=== PATIENT | female | born 1950 | race Caucasian/White ===

== ENCOUNTER 2023-10-08 09:09 | Outpatient (OUT) | payer MEDICARE, SELFPAY ==
--- NOTE | 2023-10-08 09:36 | XR_ITS ---
The [address] [address] Patient Name: TONIA BOYER MRN: [id number] date: 1950 Sex: F Assigned Patient Location: [facility] Current Patient Location: [facility] Accession/Order Number: [id number] Exam Date: 10/08/2023 09:28 Report Date: 10/08/2023 10:00 At the request of: JOSE CRUZ HAAS Procedure: XR chest 2V EXAM: XR chest 2V HISTORY: Chronic Cough COMPARISON: None. TECHNIQUE: PA and lateral views of the chest. FINDINGS: The cardiomediastinal silhouette is normal. No focal consolidation is identified. There is no pneumothorax. No pleural effusion is noted. The osseous structures are intact. XR/XR chest 2V IMPRESSION: No acute cardiopulmonary process. Suggestion of COPD. Electronically authenticated by: ROLA DIAZ Date: 10/08/2023 10:00
--- NOTE | 2023-10-08 09:36 | XR_ITS ---
The [address] [address] Patient Name: TONIA BOYER MRN: [id number] date: 1950 Sex: F Assigned Patient Location: [facility] Current Patient Location: [facility] Accession/Order Number: [id number] Exam Date: 10/08/2023 09:28 Report Date: 10/08/2023 11:06 At the request of: JOSE CRUZ HAAS Procedure: XR sinus min 3V EXAMINATION: XR sinus min 3V HISTORY: Chronic Cough COMPARISON: No relevant comparison available. FINDINGS: MAXILLARY: No mucosal thickening or fluid level on the left. Partial opacification of the right. ETHMOID: No mucosal thickening or fluid level. FRONTAL: No mucosal thickening or fluid level. SPHENOID: No mucosal thickening or fluid level. OTHER: Negative. XR/XR sinus min 3V IMPRESSION: Right maxillary sinus disease Electronically authenticated by: PB MCBRIDE Date: 10/08/2023 11:06
== END 2023-10-08 09:10 | disposition home or self-care (01) ==
PROVIDERS: PCP Internal Medicine; Visit Provider Otolaryngology
DX: R05.3 Chronic cough (principal); J32.0 Chronic maxillary sinusitis
CPT/HCPCS: 70220; 71046

== ENCOUNTER 2023-12-01 14:10 | Observation (INO) | payer MEDICARE, SELFPAY ==
[2023-12-01] VITALS (10 sets, daily range): BP systolic 104–145; BP diastolic 57–76; PULSE 91–101; RESP 16–20; TEMP 37.2–39.2; O2SAT 94–100; BMI 28.4; BMI 34.4
--- OUTSIDE RECORDS SUMMARY | 2023-12-01 14:12 | XMS_ITS | CCD ---
Author Name Unknown Address [address] [facility] [place] [address] Organization [facility] Care Team Providers Care Water Systems Engineer Name Role Phone Vick KRAUS MD, Tyshawn Primary Care Provider [phone] Pb Sanabria Unavailable Vick KRAUS MD, Tyshawn Primary Care Provider JEYSON LEW Attending Unavailable SELF, SELF Referring Unavailable VICK KRAUS, TYSHAWN Primary Care Unavailable JEYSON LEW Referring Unavailable JEYSON LEW Attending Unavailable VICK KRAUS, TYSHAWN Primary Care Unavailable JEYSON LEW Referring Unavailable JEYSON LEW Attending Unavailable VICK KRAUS, TYSHAWN Primary Care Unavailable VICK KRAUS, TYSHAWN Primary Care Unavailable JEYSON LEW Attending Unavailable JEYSON LEW Referring Unavailable VICK KRAUS, TYSHAWN Primary Care Unavailable JEYSON LEW Referring Unavailable MARCUS CALLES Attending Unavailable SELF, SELF Referring Unavailable MAURICE, CHERYL Attending Unavailable VICK II, TYSHAWN Primary Care Unavailable HICKMAN II, TYSHAWN Primary Care Unavailable MAURICE, CHERYL Attending Unavailable MAURICE, CHERYL Referring Unavailable MAURICE, CHERYL Referring Unavailable HICKMAN II, TYSHAWN Primary Care Unavailable MAURICE, CHERYL Attending Unavailable MAURICE, CHERYL Attending Unavailable HICKMAN II, TYSHAWN Primary Care Unavailable MAURICE, CHERYL Referring Unavailable MAURICE, CHERYL Attending Unavailable HICKMAN II, TYSHAWN Primary Care Unavailable MAURICE, CHERYL Referring Unavailable BROOK ALEXANDRA Smith Consulting Unavailable VICK, DR VILLAGRAN Primary Care Unavailable RENE Smith, DR CHEN Admitting Unavailable RENE Smith, DR CHEN Attending Unavailable TAMMIE, DR ROLA Rios Admitting Unavailable VICK, DR VILLAGRAN Primary Care Unavailable TAMMIE, DR ROLA Rios Attending Unavailable TAMMIE, DR ROLA Rios Consulting Unavailable SOPHIA STEWART Consulting Unavailable RENE Smith, DR CHEN Admitting Unavailable VICK, DR VILLAGRAN Primary Care Unavailable EUNICE .MIRA Consulting UnavailMilton Smith, DR CHEN Attending Unavailable CHEN ZAMORANO Consulting Unavailable VICK, DR VILLAGRAN Primary Care Unavailable VICK, DR VILLAGRAN Admitting Unavailable VICK, DR VILLAGRAN Attending Unavailable VICK, DR VILLAGRAN Consulting Unavailable RAE, DR PB Arroyo Consulting Unavailable VICK, DR VILLAGRAN Admitting Unavailable VICK, DR VILLAGRAN Attending Unavailable HICKMAN, DR VILLAGRAN Consulting Unavailable VICK, DR VILLAGRAN Primary Care Unavailable HICKMAN, DR VILLAGRAN Admitting Unavailable HICKMAN, DR VILLAGRAN Attending Unavailable HICKMAN, DR VILLAGRAN Consulting Unavailable VICK, DR VILLAGRAN Primary Care Unavailable ZIEBER, DR NITIN Rios Consulting Unavailable HICKMAN, DR VILLAGRAN Primary Care Unavailable HAY ., DR CHEN Admitting Unavailable HAY ., DR CHEN Attending Unavailable HAY ., DR CHEN Consulting Unavailable AHDOOT, LUKE Consulting Unavailable Vick, NAYANA Villagran Primary Care Provider [phone] MD Pb Sanabria Attending Provider Pb Sanabria Attending Unavailable Pb Sanabria Admitting Unavailable Tyshawn Hickman Primary Care Unavailable JOSE CRUZ HAAS Attending Unavailable Medications Current Medications Medication Drug Class(es) Dates Sig (Normalized) Sig (Original) acetaminophen 325 mg oral tablet (13 sources) Start: 11-14-2021 take 2 tablets by mouth every four hours as needed acetaminophen 325 MG tablet Take 2 tablets by mouth every 4 hours as needed for Mild Pain. 50 tablet 1 11/14/2021 Active Start: 11-14-2021 End: 11-14-2021 take 1 tablet by mouth every six hours acetaminophen (TYLENOL) tablet 1,000 mg acetaminophen 325 mg / HYDROcodone bitartrate 5 mg oral tablet (7 sources) Opioid Agonist Start: 11-14-2021 End: 11-21-2021 take 1 tablet by mouth once daily as needed hydroCODone-acetaminophen 5-325 MG tablet Indications: Acute postoperative pain of left knee Take 1-2 tablets by mouth every 6 hours as needed for Severe Pain for up to 7 days. Do not take over 4000mg acetaminophen daily. 10 tablet 0 11/14/2021 Active Albuterol (13 sources) beta2-Adrene rgic Agonist Start: 10-04-2021 Albuterol Active 90 MCG INHALATION As Directed October 03, 2021 11:00pm albuterol 108 (9 0 Base) MCG/ACT Aero Soln inhaler as needed. 0 Active Albuterol / Ipratropium (14 sources) Anticholinergic, beta2-Adrenergic Agonist ipratropium-albu terol 0.5-2.5 (3) MG/3ML nebulizer solution ipratropium 0.5 mg-albuterol 3 mg (2.5 mg base)/3 mL nebulization soln 0 Active Ipratropium-Albu terol Active alendronic acid 70 mg oral tablet (15 sources) Bisphosphonate Start: 10-04-2021 take 70 mg by mouth every week Alendronate Active 70 MG PO every week October 03, 2021 11:00pm alendronate 70 M G tablet every 7 days. 0 Active Alendronate Sodi um Active {1 (ascorbic acid 7540 MG / polyethylene glycol 3350 57713 MG / potassium chloride 1200 MG / sodium ascorbate 88651 MG / sodium chloride 3200 MG Powder for Oral Solution) / 1 (polyethylene glycol 3350 925949 MG / potassium chloride 1000 MG / sodium chloride 2000 MG / sodium sulfate 9000 MG Powder for Oral Solution) } Pack [Plenvu] (2 sources) Osmotic Laxative, Vitamin C Start: 09-18-2021 Start: 09-18-2021 aspirin 81 mg delayed release oral tablet (20 sources) Platelet Aggregation Inhibitor, Nonsteroidal Anti-inflammatory Drug Start: 11-15-2021 End: 11-14-[address] 81 mg Start: 11-14-2021 aspirin EC [address] Take 1 table twice a day for 30days. This medication is for blood clot prevention. 60 tablet 0 11/14/2021 Active Start: 10-04-2021 take 81 mg by mouth once daily Aspirin Active 81 MG PO Daily October 03, 2021 11:00pm aspirin 81 MG Ch ew Tab chewable tablet Chew 81 mg daily. 0 Active atorvastatin 40 mg oral tablet (15 sources) HMG-CoA Reductase Inhibitor Start: 10-04-2021 take 40 mg by mouth once daily Atorvastatin Active 40 MG PO Daily October 03, 2021 11:00pm Atorvastatin Pablo cium Active calcium citrate 1040 mg oral tablet (12 sources) Calcium Citrate 1040 MG tablet Take 600 mg by mouth daily. 0 Active cephalexin 500 mg oral capsule (1 source) Cephalosporin Antibacterial Start: End: take 1 capsule by mouth every six hours cephALEXin 500 MG capsule Take 1 capsule by mouth every 6 hours for 3 doses. Start 6 hours after last dose of iv antibiotics. 3 capsule 0 11/14/2021 11/15/2021 Active cholecalciferol 0.125 mg oral tablet (12 sources) Vitamin D Cholecalciferol 125 MCG (5000 UT) per tablet At bedtime. 0 Active Colchicine (14 sources) Colchicine 0.6 M G capsule as needed. 0 Active Colchicine Activ e 1 ml dexamethasone phosphate 4 mg/ml injection (6 sources) Corticosteroid Start: 08-01-2022 dexAMETHasone 4 MG/ML Solution injection 1 mL by Other route As directed for 18 doses. (1 cc 3 x a week at physical therapy via iontophoresis) for up to 18 doses. 30 mL 0 08/01/2022 Active Start: 11-14-2021 End: 11-14-2021 dexAMETHasone (DECADRON) inj ection 10 mg diphenhydrAMINE (5 sources) Histamine-1 Receptor Antagonist diphenhydrAMINE HCl (BENADRYL ALLERGY PO) Take by mouth. 0 Active docusate sodium 100 mg oral capsule (12 sources) Start: End: take 1 capsule by mouth twice daily docusate 100 MG capsule Take 1 capsule by mouth 2 times daily. 60 capsule 0 11/14/2021 Active ferrous sulfate 325 mg oral tablet (13 sources) Start: take 1 tablet by mouth three times daily Ferrous Sulfate (Iron) 325 mg (65 mg iron) Tablet Active 325 MG PO Three times daily October 03, 2021 11:00pm Ferrous Sulfate (IRON PO) 3 times daily. 0 Active furosemide 20 mg oral tablet (15 sources) Loop Diuretic Start: 10-04-2021 take 20 mg by mouth once daily Furosemide Active 20 MG PO Daily October 03, 2021 11:00pm Furosemide Activ e Hydrocortisone (14 sources) Corticosteroid hydrocortisone 2 .5 % Lotion Apply topically as needed. 0 Active Hydrocortisone A ctive Iron (2 sources) Iron Active metFORMIN hydrochloride 500 mg oral tablet (15 sources) Biguanide Start: 10-04-2021 take 500 mg by mouth twice daily Metformin Active 500 MG PO Twice daily October 03, 2021 11:00pm take 1 tablet by codi th every twenty-four hours metFORMIN 500 MG tablet 3 times daily. 0 Active 24 hr metoprolol succinate 25 mg extended release oral tablet (15 sources) beta-Adrenergic Donnie Start: 10-04-2021 take 25 mg by mouth once daily Metoprolol Succinate Active 25 MG PO Daily October 03, 2021 11:00pm Metoprolol Succi paras ER Active multivitamin tablet (12 sources) take 1 tablet by mouth once daily multivitamin tablet Take 1 tablet by mouth daily. 0 Active Nystatin (2 sources) Polyene Antifungal Nystatin Active nystatin 100 unt/mg / triamcinolone acetonide 0.001 mg/mg topical ointment (12 sources) Polyene Antifungal, Corticosteroid nystatin-triamcinolo ne 575312-3.1 UNIT/GM-% Ointment as needed. 0 Active omeprazole 20 mg delayed release oral capsule (11 sources) Proton Pump Inhibitor Start: 2020 take 1 capsule by mouth once daily omeprazole [address] capsule Take 1 capsule by mouth daily. 30 capsule 0 11/14/2021 Active ondansetron 4 mg oral tablet (12 sources) Serotonin-3 Receptor Antagonist Start: 2020 take 1 tablet by mouth every eight hours as needed ondansetron 4 MG tablet Take 1 tablet by mouth every 8 hours as needed for Nausea. 6 tablet 0 11/14/2021 Active Start: 11-14-2021 End: 11-14-2021 take 4 mg intravenously every four hours as needed ondansetron 4mg/2ml (ZOFRAN) injection 4 mg traMADol hydrochloride 50 mg oral tablet (8 sources) Opioid Agonist Start: 11-14-2021 End: 11-21-2021 take 1-2 tablets by mouth every six hours as needed for pain traMADol 50 MG tablet Indications: Acute postoperative pain of left knee 1-2 tabs po q 6 hr PRN pain 20 tablet 0 11/14/2021 Active vitamin b12 1 mg oral tablet (12 sources) Vitamin B12 take 2 tablets by mouth every month cyanocobalamin 1000 MCG tablet Take 500 mcg by mouth. Once or twice/month 0 Active Completed/Discontinued Medications Medication Drug Class(es) Dates Sig (Normalized) Sig (Original) bisacodyl 10 mg rectal suppository (1 source) Stimulant Laxative Start: 11-14-20 End: 11-14-20 bisacodyl (DULCOLAX) suppository 10 mg bupivacaine hydrochloride 2.5 mg/ml injectable solution (2 sources) Amide Local Anesthetic Start: 08-08-20 End: 08-08-20 bupivacaine (MARCAINE) injection 2 mL ceFAZolin 2000 mg injection (1 source) Cephalosporin Antibacterial Start: 11-14-20 End: 11-14-20 take 2 g intravenously every eight hours ceFAZolin (ANCEF) 2 g in dextrose 100 mL premix IVPB chlorhexidine gluconate 40 mg/ml medicated liquid soap (2 sources) Start: 09-01-20 End: 11-14-20 chlorhexidine 4 % Liquid Indications: Arthralgia, unspecified joint Entire body(Exclude face) daily x 5 days 118 mL 0 09/01/2021 11/14/2021 Discontinued (Stop Taking at Discharge) docusate sodium 50 mg / sennosides, fci 8.6 mg oral tablet (1 source) Start: 11-14-20 End: 11-14-20 senna-docusate (SENOKOT-S) 8.6-50 MG per tablet 2 tablet fluticasone propionate 0.05 mg/actuat metered dose nasal spray (8 sources) Corticosteroid End: 08-01-20 fluticasone 50 MCG/ACT Suspension nasal spray fluticasone propionate 50 mcg/actuation nasal spray,suspension 0 08/01/2022 Discontinued (Medication Reconciliation (suppress cancel msg)) 1 ml HYDROmorphone hydrochloride 1 mg/ml cartridge (1 source) Opioid Agonist Start: 11-14-20 End: 11-14-20 take 0.5 mg intravenously every four hours as needed HYDROmorphone (DILAUDID) injection 0.5 mg 10 ml lidocaine hydrochloride 10 mg/ml injection (2 sources) Antiarrhythmic, Amide Local Anesthetic Start: 08-08-20 End: 08-08-20 lidocaine (XYLOCAINE) 10 mg/mL injection 2 mL 1 ml methylPREDNISolone acetate 40 mg/ml injection (2 sources) Corticosteroid Start: 08-08-20 End: 08-08-20 methylPREDNISolone acetate (DEPO-MEDROL) injection 40 mg mupirocin 0.02 mg/mg topical ointment (2 sources) RNA Synthetase Inhibitor Antibacterial Start: 09-01-20 End: 11-14-20 apply 15 g nasal route twice daily mupirocin 2 % ointment Indications: Arthralgia, unspecified joint Each nostril BID x 5 days 15 g 0 09/01/2021 11/14/2021 Discontinued (Stop Taking at Discharge) ropivacaine (NAROPIN) 1 % 400 mg, EPINEPHrine PF (ADRENALIN) 1 MG/ML 1 mg, ketorolac (TORADOL) 30 MG/ML 30 mg, cloNIDine 100 MCG/ML 171 mcg, sodium chloride 0.9% 45 mL 88.71 mL (total volume) (1 source) Start: 11-14-20 End: 11-14-20 ropivacaine (NAROPIN) 1 % 400 mg, EPINEPHrine PF (ADRENALIN) 1 MG/ML 1 mg, ketorolac (TORADOL) 30 MG/ML 30 mg, cloNIDine 100 MCG/ML 171 mcg, sodium chloride 0.9% 45 mL 88.71 mL (total volume) 1000 ml sodium chloride 9 mg/ml injection (3 sources) Start: 11-14-20 End: 11-14-20 sodium chloride 0.9 % irrigation Start: 11-14-2021 End: 11-14-2021 sodium chloride 0.9% IV solu tion sodium phosphate, dibasic 35.5 mg/ml / sodium phosphate, monobasic 96.4 mg/ml enema (1 source) Start: 11-14-2021 End: 11-14-2021 sodium phosphate w/sodium biphosphate (FLEETS) enema 1 enema tranexamic acid 650 mg oral tablet (1 source) Antifibrinolytic Agent Start: 11-14-2021 End: 11-14-2021 tranexamic acid (LYSTEDA) tablet 1,950 mg vancomycin 1000 mg injection (1 source) Glycopeptide Antibacterial Start: 11-14-2021 End: 11-14-2021 vancomycin (VANCOCIN) injection zolpidem tartrate 5 mg oral tablet (1 source) gamma-Aminobutyric Acid-ergic Agonist Start: 11-14-2021 End: 11-14-2021 zolpidem (AMBIEN) tablet 5 mg Problems Active Problems Problem Classification Problem Date Documented Da te Episodic/Chronic Chronic obstructive pulmonary disease and bronchiectasis (1 source) Chronic obstructive pulmonary disease, unspecified; Translations: [COPD UNSPECIFIED] Onset: 10-04-2022 Chronic Complication of device; implant or graft (3 sources) Pain due to hip joint prosthesis; Translations: [Pain due to internal orthopedic prosthetic devices, implants and grafts, sequela] Onset: 12-12-2022 Episodic Congestive heart failure; nonhypertensive (2 sources) Chronic diastolic heart failure; Translations: [Chronic diastolic (congestive) heart failure] Chronic Deficiency and other anemia (4 sources) Iron deficiency anemia; Translations: [Iron deficiency anemia, unspecified] Episodic Diabetes mellitus without complication (1 source) Type 2 diabetes mellitus without complications; Translations: [TYPE 2 DM WITHOUT COMPLICATIONS] Onset: 10-04-2022 Chronic Diverticulosis and diverticulitis (1 source) Diverticulosis of intestine, part unspecified, without perforation or abscess without bleeding; Translations: [DVRTCLOS PRT UNS NO PERF/ABSC NO BL] Onset: 10-04-2022 Chronic Essential hypertension (1 source) Essential (primary) hypertension; Translations: [ESSENTIAL PRIMARY HYPERTENSION] Onset: 10-04-2022 Chronic Menopausal disorders (1 source) Other primary ovarian failure; Translations: [OTHER PRIMARY OVARIAN FAILURE] Onset: 03-06-2023 Chronic Miscellaneous mental health disorders (2 sources) Chronic insomnia; Translations: [Psychophysiologic insomnia] Chronic Osteoarthritis (3 sources) Osteoarthritis of left hip joint; Translations: [Unilateral primary osteoarthritis, left hip] Onset: 10-04-2022 Chronic Osteoporosis (1 source) Age-related osteoporosis without current pathological fracture; Translations: [AGE-REL OSTEOPOR W/O CURR PATH FX] Onset: 03-06-2023 Chronic Other connective tissue disease (4 sources) History of total replacement of left hip joint; Translations: [Presence of left artificial hip joint] Chronic Other connective tissue disease (2 sources) Presence of left artificial hip joint; Translations: [Presence of left artificial hip joint] Onset: 08-01-2022 Chronic Other connective tissue disease (1 source) Trigger finger of left hand; Translations: [Trigger finger, unspecified finger] Episodic Other hereditary and degenerative nervous system conditions (2 sources) Restless legs; Translations: [Restless legs syndrome] Chronic Other hereditary and degenerative nervous system conditions (2 sources) Restless legs syndrome Onset: 10-03-2021 Resolved: 10-03-2021 Chronic Other injuries and conditions due to external causes (2 sources) History of falling; Translations: [History of falling] Onset: 12-12-2022 Episodic Other nervous system disorders (1 source) Other acute postprocedural pain; Translations: [Pain in joint, lower leg] Episodic Other nutritional; endocrine; and metabolic disorders (2 sources) Body mass index 30+ - obesity; Translations: [Body mass index (BMI) 34.0-34.9, adult] Chronic Other screening for suspected conditions (not mental disorders or infectious disease) (9 sources) Coag./bleeding tests abnormal; Translations: [Abnormal coagulation profile] Onset: 06-07-2022 Episodic Residual codes; unclassified (2 sources) Obstructive sleep apnea syndrome; Translations: [Obstructive sleep apnea (adult) (pediatric)] Chronic Residual codes; unclassified (2 sources) Obstructive sleep apnea (adult) (pediatric) Onset: 10-03-2021 Resolved: 10-03-2021 Chronic Residual codes; unclassified (1 source) Sleep apnea, unspecified; Translations: [SLEEP APNEA UNSPECIFIED] Onset: 10-04-2022 Chronic Residual codes; unclassified (1 source) Obstructive sleep apnea (adult)(pediatric); Translations: [Obstructive sleep apnea (adult) (pediatric)] Onset: 10-08-2023 Chronic Past or Other Problems Problem Classification Problem Date Documented Da te Episodic/Chronic Abdominal pain (3 sources) Unspecified abdominal pain; Translations: [UNSPECIFIED ABDOMINAL PAIN] Onset: 05-10-2022 Episodic Deficiency and other anemia (1 source) Iron deficiency anemia, unspecified Onset: 10-03-2021 Resolved: 10-03-2021 Episodic E Codes: Cut/pierceb (1 source) Contact with other sharp object(s), not elsewhere classified, initial encounter; Translations: [[facility] OTH SHRP OB NOT ELSW CLASS INI] Onset: 09-19-2022 Episodic E Codes: Fall (1 source) Unspecified fall, initial encounter; Translations: [UNSPECIFIED FALL INITIAL ENCOUNTER] Onset: 05-13-2022 Episodic E Codes: Natural/environment (1 source) Other and unspecified overexertion or strenuous movements or postures, initial encounter; Translations: [OTH AND UNS OVREXRT/STRN MVMT/POS INT] Onset: 10-04-2022 Episodic Immunizations and screening for infectious disease (1 source) Encounter for immunization; Translations: [ENCOUNTER FOR IMMUNIZATION] Onset: 09-19-2022 Episodic Open wounds of extremities (4 sources) Laceration without foreign body of left thumb without damage to nail, initial encounter; Translations: [LAC NO FB LT THUMB NO DMG NAIL INIT] Onset: 09-17-2022 Episodic Other aftercare (1 source) 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 inspector (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; Translations: [SEWER INSPECTOR CURRENT USE OF ASPIRIN] Onset: 10-04-2022 Episodic Other aftercare (1 source) Other buttermaker (current) drug therapy; Translations: [OTH SEWER INSPECTOR CURRENT DRUG THERAPY] Onset: 10-04-2022 Episodic Other aftercare (1 source) group home (current) use of oral hypoglycemic drugs; Translations: [SEWER INSPECTOR USE ORAL HYPOGLYCEMIC DX] Onset: 10-04-2022 Episodic Other connective tissue disease (2 sources) Trigger finger, unspecified finger; Translations: [Trigger finger, unspecified finger] Onset: 08-08-2022 Episodic Other connective tissue disease (3 sources) Pain in left thigh; Translations: [PAIN IN LEFT THIGH] Onset: 05-26-2022 Episodic Other non-traumatic joint disorders (6 sources) Pain in left hip; Translations: [Pain in left hip] Onset: 05-28-2022 Episodic Residual codes; unclassified (1 source) Edema, unspecified; Translations: [EDEMA UNSPECIFIED] Onset: 05-28-2022 Episodic Screening and history of mental health and substance abuse codes (1 source) Personal history of nicotine dependence; Translations: [PERSONAL HISTORY OF NICOTINE DEPEND] Onset: 10-04-2022 Episodic Sprains and strains (1 source) Strain of muscle, fascia and tendon of left hip, initial encounter; Translations: [STRAIN MUSC FASC TENDON LT HIP INIT] Onset: 10-04-2022 Episodic Superficial injury; contusion (1 source) Contusion of abdominal wall, initial encounter; Translations: [CONTUSION ABDOMINAL WALL INITIAL] Onset: 05-13-2022 Episodic Results Test Name Value Interpretation Reference Range Facility Physician Orderon 11-14-2023 Physician Order [id number] [facility] Physician Order [id number] 0TIFF Normal [facility] MG MAMM SCREEN 3D NGOC CADon 02-28-2023 MG MAMM SCREEN 3D NGOC CAD Patient: SIRIA PETTY Exam Date: 02/28/2023 : 1950 Gender:F Ordering : DR TYSHAWN HICKMAN M.D. Admission #: [id number] Family : Order #: [id number] CLICK HERE TO VIEW EXAM RADIOLOGY REPORT PROCEDURE: MAMMOGRAM SCREENING 3D BILATERAL CAD COMPARISON: MG MAMM SCREEN 3D NGOC CAD, 10/31/2021. MG MAMM DX 3D RT CAD, 06/07/2022. INDICATIONS: Screening mammography Calculator Name NCI Breast Cancer Risk Assessment Tool 5 Year Breast Cancer Risk Not Reported. Lifetime Breast Cancer Risk Not Reported. Personal Breast Cancer No Personal Ovarian Cancer No Treatments None Family Cancers None LOCATION: [facility] BREAST COMPOSITION: Almost entirely fatty. FINDINGS: DIAGNOSTIC CATEGORY 1--NEGATIVE. NO CHANGE FROM COMPARISON ASSESSMENT. Scattered benign-appearing nodules are present. Scattered benign-appearing calcifications are present. Scattered benign-appearing lymph nodes are present. RIGHT BREAST: No significant suspicious finding. LEFT BREAST: No significant suspicious finding. RECOMMENDATIONS: ROUTINE MAMMOGRAM AND CLINICAL EVALUATION IN 12 MONTHS. PLEASE NOTE: A NORMAL MAMMOGRAM DOES NOT EXCLUDE THE POSSIBILITY OF BREAST CANCER. A CLINICALLY SUSPICIOUS PALPABLE LUMP SHOULD BE BIOPSIED. Dictated by: Pb Mcbride MD on 02/28/2023 at 13:57 Approved by: Pb Mcbride MD on 02/28/2023 at 14:23 Normal [facility] XR DEXA BONE DENSITYon 02-28 XR DEXA BONE DENSITY EXAMINATION: XR DEX A BONE DENSITY, 02/28/2023 12:37 PM EDT HISTORY: Primary ovarian failure COMPARISON: 2019, 2015, 2013 TECHNIQUE: Dual-energy X-ray absorptiometry (DEXA) bone density study performed for the axial skeleton. FINDINGS: Bone mineral density AP spine L2-L4 measures 1.43 g/sq cm. T score 2.0. WHO classification: Normal. Lowest bone mineral density is in the right femoral trochanter measuring 0.56 g/sq cm. T score -2.5. WHO classification: Osteoporosis IMPRESSION: Osteoporosis. High fracture risk Electronically authenticated by: PB MCBRIDE Date: 2023-02-28 15:36 Normal [facility] MRI HIP LEFT WITHOUT CONTRAS Ton 12-13-2022 MRI HIP LEFT WITHOUT CONTRAST EXAM: MRI HIP LEFT WITHOUT CONTRAST REASON FOR EXAM: Left hip pain, prior arthroplasty. TECHNIQUE: Multiplanar, multisequence imaging of the left hip was performed without contrast COMPARISON: Plain radiograph 11/27/2022. FINDINGS: On small [id number] imaging the left hip, susceptibility artifact consistent with known left hip arthroplasty. There are also surgical anchor is within the greater trochanter consistent with tendon fixation. The visualized bone marrow signal of the left hip is normal. Trace amount of fluid at the greater trochanter suggests mild bursitis. No large fluid collection identified. There is tendinosis and low-grade partial tearing of the common hamstring origin. The remaining left hip regional musculature is unremarkable. On large [id number] imaging, the bone marrow signal is without fracture or osteonecrosis. The sacroiliac joints are congruent with mild to moderate osteoarthritis. The pubic symphysis is congruent. The right femur is well seated within the acetabulum without fracture or AVN. The right hip regional musculature is without muscle strain or tendon tear. Limited evaluation the pelvic viscera is without acute abnormality. Colonic diverticulosis is noted. The uterus is present. IMPRESSION: 1. Postsurgical changes involving the left hip. 2. Mild trochanteric bursitis of the left hip. 3. Tendinosis and low-grade partial tearing of the left common hamstring origin. Normal [facility] US Venous, Unilat, Lower Ext Righton 10-17-2022 US Venous, Unilat, Lower Ext Right CLINICAL INDICATION:Right greater than left leg edema for 2 weeks. History of left hip replacement. Baby aspirin 1 per day. COMPARISON: None TECHNIQUE: The right lower extremity veins were evaluated with color Doppler, grayscale imaging, and spectral analysis was using compression and augmentation when possible. FINDINGS: Evaluation of the right lower extremity veins from the thigh to the calf shows normal phasic flow, normal augmentation of the Doppler signal, and normal compression of the deep veins. There is no sonographic evidence for deep venous thrombosis from the right groin to the popliteal region. There is no sonographic evidence for deep vein thrombosis in the right calf veins. IMPRESSION: No DVT of the right lower extremity veins. Report reported and signed by Berhane Fernandez on 10/17/2022 1156 Normal [facility] XR HIP LT 2 3V W PELVISon XR HIP LT 2 3V W PELVIS EXAM: XR HIP LT 2 3V W PELVIS HISTORY: Pain COMPARISON: 08/01/2022, 05/26/2022 TECHNIQUE AND FINDINGS: Frontal view pelvis and 2 views of the left hip. Generalized osteopenia, limits assessment for fracture. No acute displaced fracture or dislocation seen. Left hip arthroplasty appears intact and unchanged from previous. There is no evidence of hardware failure or significant perihardware lucency. Unremarkable soft tissues without radiopaque foreign body seen. Moderate degenerative changes of the visualized lower lumbar spine. Minimal right hip arthropathy. Surgical clips in the right upper abdomen likely from cholecystectomy. Bowel gas pattern appears nonobstructive. IMPRESSION: Generalized osteopenia. No evidence of acute displaced fracture. Stable left hip arthroplasty. Electronically authenticated by: SOPHIA STEWART Date: 2022-10-03 00:50 Normal [facility] UPPER EXTREMITY INJECTION: L long A1on 08-08-2022 Aye Schafer LPN 08/08/2022 11:43 AM UPPER EXTREMITY INJECTION: L long A1 Date/Time: 08/08/2022 9:15 AM Supporting Documentation Indications: pain Procedure Details: Procedure: tendon sheath / ligament injection Location: long finger - L long A1 Needle size: 25 G Approach: superolateral Medications administered: 40 mg methylPREDNISolone acetate 40 MG/ML; 2 mL bupivacaine 0.25 %; 2 mL lidocaine 10 mg/mL Medication Verification: I have personally verified and performed the final check of the medication(s) used in this procedure prior to administration. The following items were included during the verification process for medication(s) administered: drug name, strength, volume, expiration, physical integrity and appearance of the medication(s). Patient tolerance: patient tolerated the procedure well with no immediate complications Comments Risk and Benefits were discussed with the patient and they wished to proceed. The procedure was performed aseptically and was tolerated by the patient. Consent: Consent was obtained prior to the procedure after discussion of the risks, benefits and alternatives, and expected outcomes were discussed with the patient. The possibilities of reaction to medication, bleeding, infection, the need for additional procedures, failure to diagnosis a condition, and creating a complication requiring operation were discussed with the patient. The patient concurred with the proposed plan, giving consent. Preparation: Patient was prepped in the usual sterile fashion. The patient was prepped with alcohol. [facility] Radiology Study observation (narrative) [facility] MG MAMM DX 3D RT CADon 06-07 MG MAMM DX 3D RT CAD Patient: SIRIA PETTY Exam Date: 06/07/2022 : 1950 Gender:F Ordering : DR TYSHAWN HICKMAN M.D. Admission #: [id number] Family : Order #: [id number] CLICK HERE TO VIEW EXAM RADIOLOGY REPORT PROCEDURE: MAMMOGRAM DIAGNOSTIC 3D RIGHT CAD COMPARISON: MG MAMM SCREEN 3D NGOC CAD, 10/31/2021. MG MAMM SCREEN NGOC W CAD, 10/28/2020. INDICATIONS: Abnormal findings on diagnostic imaging of breast Calculator Name NCI Breast Cancer Risk Assessment Tool 5 Year Breast Cancer Risk Not Reported. Lifetime Breast Cancer Risk Not Reported. Personal Breast Cancer No Personal Ovarian Cancer No Treatments None Family Cancers None LOCATION: [facility] BREAST COMPOSITION: Almost entirely fatty. FINDINGS: DIAGNOSTIC CATEGORY 2--BENIGN FINDING: RIGHT BREAST: No significant suspicious finding. Clearing of previously seen asymmetry within the lower-inner quadrant. lower-inner quadrant. RECOMMENDATIONS: ROUTINE MAMMOGRAM AND CLINICAL EVALUATION IN 12 MONTHS. PLEASE NOTE: A NORMAL MAMMOGRAM DOES NOT EXCLUDE THE POSSIBILITY OF BREAST CANCER. A CLINICALLY SUSPICIOUS PALPABLE LUMP SHOULD BE BIOPSIED. Dictated by: Nitin Galan M.D. on 06/07/2022 at 15:27 Approved by: Nitin Galan M.D. on 06/07/2022 at 15:44 Normal [facility] CBC AUTO DIFFon 05-26-2022 BASO # 0.0 103/ul Normal 0.0-0.1 [facility] Comment on above: Performed By: #### C BC #### [facility] [address] [address] [address] Francesca Ortiz Basophils/100 WBC (Bld) 0.5 % Normal 0.2-2.0 [facility] Comment on above: Performed By: #### C BC #### [facility] [address] [address] [address] Francesca Ortiz EO # 0.1 103/ul Normal 0.0-0.7 [facility] Comment on above: Performed By: #### C BC #### [facility] [address] [place] [address] Dr. Francesca Ortiz Eosinophils/100 WBC (Bld) 1.9 % Normal 0.9-7.0 [facility] Comment on above: Performed By: #### C BC #### [facility] [address] [place] [address] Dr. Francesca Ortiz Erythrocyte distribution width (RBC) [Ratio] 13.5 % Normal 11.0-15.0 [facility] Comment on above: Performed By: #### C BC #### [facility] [address] [place] [address] Dr. Francesca Ortiz Hematocrit (Bld) [Volume fraction] 35.7 % Critically low 36.0-48.0 [facility] Comment on above: Performed By: #### C BC #### [facility] [address] [place] [address] Dr. Francesca Ortiz Hemoglobin (Bld) [Mass/Vol] 11.3 g/dL Critically low 12.0-16.0 [facility] Comment on above: Performed By: #### C BC #### [facility] [address] [place] [address] Dr. Francesca Ortiz IG # 0.01 10e3/ul Normal 0.00-0.03 [facility] Comment on above: Performed By: #### C BC #### [facility] [address] [place] [address] Dr. Francesca Ortiz IG % 0.2 % Normal 0.0-0.5 [facility] Comment on above: Performed By: #### C BC #### [facility] [address] [place] [address] Dr. Francesca Ortiz LYMPH # 1.7 103/ul Normal 1.2-3.8 [facility] Comment on above: Performed By: #### C BC #### [facility] [address] [place] [address] Dr. Francesca Ortiz Lymphocytes/100 WBC (Bld) 27.9 % Normal 20.5-60.0 [facility] Comment on above: Performed By: #### C BC #### [facility] [address] [place] [address] Dr. Francesca Ortiz MANUAL DIFF REQ NO Normal [facility] Comment on above: Performed By: #### C BC #### [facility] [address] [place] [address] Dr. Francesca Ortiz MCH (RBC) [Entitic mass] 29.9 pg Normal 26.7-34.0 [facility] Comment on above: Performed By: #### C BC #### [facility] [address] [place] [address] Dr. Francesca Ortiz MCHC (RBC) [Mass/Vol] 31.7 g/dL Normal 29.9-35.2 [facility] Comment on above: Performed By: #### C BC #### [facility] [address] [place] [address] Dr. Francesca Ortiz MCV (RBC) [Entitic vol] 94.4 fL Normal 81.0-99.0 [facility] Comment on above: Performed By: #### C BC #### [facility] [address] [place] [address] Dr. Francesca Ortiz MONO # 0.6 103/ul Normal 0.3-0.8 [facility] Comment on above: Performed By: #### C BC #### [facility] [address] [place] [address] Dr. Francesca Ortiz Monocytes/100 WBC (Bld) 9.9 % Normal 1.7-12.0 [facility] Comment on above: Performed By: #### C BC #### [facility] [address] [place] [address] Dr. Francesca Ortiz NEUT # 3.5 103/ul Normal 1.4-6.5 [facility] Comment on above: Performed By: #### C BC #### [facility] [address] [place] [address] Dr. Francesca Ortiz Neutrophils/100 WBC (Bld) 59.6 % Normal 43.0-75.0 [facility] Comment on above: Performed By: #### C BC #### [facility] [address] [place] [address] Dr. Francesca Ortiz Platelet mean volume (Bld) [Entitic vol] 10.7 fL Normal 9.5-13.5 [facility] Comment on above: Performed By: #### C BC #### [facility] [address] [place] [address] Dr. Francesca Ortiz PLT 131 103/ul Critically low 150-450 [facility] Comment on above: Performed By: #### C BC #### [facility] [address] [place] [address] Dr. Francesca Ortiz RBC 3.78 106/ul Critically low 4.20-5.40 [facility] Comment on above: Performed By: #### C BC #### [facility] [address] [place] [address] Dr. Francesca Ortiz WBC 5.9 103/ul Normal 4.0-11.0 [facility] Comment on above: Performed By: #### C BC #### [facility] [address] [place] [address] Dr. Francesca Ortiz PROF 14(COMP METB)on 022 Albumin [Mass/Vol] 3.6 g/dL Normal 3.4-5.0 [facility] Comment on above: Performed By: #### C MP #### [facility] [address] [place] [address] Dr. Francesca Ortiz Albumin/Globulin [Mass ratio] 1.1 {ratio} Normal [facility] Comment on above: Performed By: #### C MP #### [facility] [address] [place] [address] Dr. Francesca Ortiz ALP [Catalytic activity/Vol] 93 U/L Normal 46-116 [facility] Comment on above: Performed By: #### C MP #### [facility] [address] [place] [address] Dr. Francesca Ortiz ALT [Catalytic activity/Vol] 33 U/L Normal 14-59 [facility] Comment on above: Performed By: #### C MP #### [facility] [address] [place] [address] Dr. Francesca Ortiz Anion gap [Moles/Vol] 13.2 mmol/L Normal [facility] Comment on above: Performed By: #### C MP #### [facility] [address] [address] [address] Francesca Ortiz AST [Catalytic activity/Vol] 34 U/L Normal 15-37 [facility] Comment on above: Performed By: #### C MP #### [facility] [address] [address] [address] Francesca Ortiz Bilirubin [Mass/Vol] 0.5 mg/dL Normal 0.2-1.0 [facility] Comment on above: Performed By: #### C MP #### [facility] [address] [address] [address] Francesca Ortiz Calcium [Mass/Vol] 9.0 mg/dL Normal 8.5-10.1 [facility] Comment on above: Performed By: #### C MP #### [facility] [address] [address] [address] Francesca Ortiz Chloride [Moles/Vol] 104 mmol/L Normal 98-107 [facility] Comment on above: Performed By: #### C MP #### [facility] [address] [address] [address] Francesca Ortiz CO2 [Moles/Vol] 27.2 mmol/L Normal 21.0-32.0 [facility] Comment on above: Performed By: #### C MP #### [facility] [address] [address] [address] Francesca Ortiz Creatinine [Mass/Vol] 0.92 mg/dL Normal 0.55-1.02 [facility] Comment on above: Performed By: #### C MP #### [facility] [address] [address] [address] Francesca Ortiz EGFR-AF SLOVENIAN >60 Normal >=60 [facility] Comment on above: Performed By: #### C MP #### [facility] [address] [address] [address] Francesca Ortiz EGFR-NON AF SLOVENIAN =60 Normal >=60 [facility] Comment on above: Performed By: #### C MP #### [facility] [address] [address] [address] Francesca Ortiz Globulin (S) [Mass/Vol] 3.4 g/dL Normal [facility] Comment on above: Performed By: #### C MP #### [facility] [address] [address] [address] Francesca Ortiz Glucose [Mass/Vol] 113 mg/dL Critically high 74-106 [facility] Comment on above: Performed By: #### C MP #### [facility] [address] [address] [address] Francesca Ortiz Potassium [Moles/Vol] 4.4 mmol/L Normal 3.5-5.1 [facility] Comment on above: Performed By: #### C MP #### [facility] [address] [place] [address] Dr. Francesca Ortiz Protein [Mass/Vol] 7.0 g/dL Normal 6.4-8.2 [facility] Comment on above: Performed By: #### C MP #### [facility] [address] [address] [address] Francesca Ortiz Sodium [Moles/Vol] 140 mmol/L Normal 136-145 [facility] Comment on above: Performed By: #### C MP #### [facility] [address] [address] [address] Francesca Ortiz Urea nitrogen [Mass/Vol] 17.0 mg/dL Normal 7.0-18.0 [facility] Comment on above: Performed By: #### C MP #### [facility] [address] [address] [address] Francesca Ortiz Urea nitrogen/Creatinine [Mass ratio] 18.5 mg/mg Normal [facility] Comment on above: Performed By: #### C MP #### [facility] [address] [place] [address] Dr. Francesca Ortiz XR HIP LT 2 3V W PELVISon XR HIP LT 2 3V W PELVIS EXAM: XR HIP LT 2 3V W PELVIS HISTORY: Pain of left hip joint COMPARISON: [X-ray dated 06/06/2020. TECHNIQUE: 3 views of the left hip FINDINGS: Mild diffuse bony demineralization is seen. Patient is post left hip replacement with intact prosthesis in normal alignment. No significant periprosthetic lucency is seen. No obvious acute osseous fracture is seen. Joint alignment is normal. The visualized soft tissues appear unremarkable. IMPRESSION: Mild diffuse bony demineralization is noted, which limits this examination for evaluation of a subtle nondisplaced fracture. Otherwise no obvious acute displaced fracture seen. Prior left hip arthroplasty. Electronically authenticated by: LUKE BLACKWOOD Date: 2022-05-26 15:55 Normal [facility] CBC AUTO DIFFon 05-10-2022 BASO # 0.0 103/ul Normal 0.0-0.1 [facility] Comment on above: Performed By: #### C BC #### [facility] [address] [address] [address] Francesca Ortiz Basophils/100 WBC (Bld) 0.4 % Normal 0.2-2.0 [facility] Comment on above: Performed By: #### C BC #### [facility] [address] [address] [address] Francesca Ortiz EO # 0.1 103/ul Normal 0.0-0.7 [facility] Comment on above: Performed By: #### C BC #### [facility] [address] [address] [address] Francesca Ortiz Eosinophils/100 WBC (Bld) 1.8 % Normal 0.9-7.0 [facility] Comment on above: Performed By: #### C BC #### [facility] [address] [address] [address] Francesca Ortiz Erythrocyte distribution width (RBC) [Ratio] 13.9 % Normal 11.0-15.0 [facility] Comment on above: Performed By: #### C BC #### [facility] [address] [address] [address] Francesca Ortiz Hematocrit (Bld) [Volume fraction] 36.8 % Normal 36.0-48.0 [facility] Comment on above: Performed By: #### C BC #### [facility] [address] [place] [address] Dr. Francesca Ortiz Hemoglobin (Bld) [Mass/Vol] 11.7 g/dL Critically low 12.0-16.0 [facility] Comment on above: Performed By: #### C BC #### [facility] [address] [place] [address] Dr. Francesca Ortiz IG # 0.01 10e3/ul Normal 0.00-0.03 [facility] Comment on above: Performed By: #### C BC #### [facility] [address] [place] [address] Dr. Francesca Ortiz IG % 0.2 % Normal 0.0-0.5 [facility] Comment on above: Performed By: #### C BC #### [facility] [address] [place] [address] Dr. Francesca Ortiz LYMPH # 1.6 103/ul Normal 1.2-3.8 [facility] Comment on above: Performed By: #### C BC #### [facility] [address] [place] [address] Dr. Francesca Ortiz Lymphocytes/100 WBC (Bld) 31.5 % Normal 20.5-60.0 [facility] Comment on above: Performed By: #### C BC #### [facility] [address] [place] [address] Dr. Francesca Ortiz MANUAL DIFF REQ NO Normal [facility] Comment on above: Performed By: #### C BC #### [facility] [address] [place] [address] Dr. Francesca Ortiz MCH (RBC) [Entitic mass] 30.0 pg Normal 26.7-34.0 [facility] Comment on above: Performed By: #### C BC #### [facility] [address] [place] [address] Dr. Francesca Ortiz MCHC (RBC) [Mass/Vol] 31.8 g/dL Normal 29.9-35.2 [facility] Comment on above: Performed By: #### C BC #### [facility] [address] [place] [address] Dr. Francesca Ortiz MCV (RBC) [Entitic vol] 94.4 fL Normal 81.0-99.0 [facility] Comment on above: Performed By: #### C BC #### [facility] [address] [place] [address] Dr. Francesca Ortiz MONO # 0.6 103/ul Normal 0.3-0.8 [facility] Comment on above: Performed By: #### C BC #### [facility] [address] [place] [address] Dr. Francesca Ortiz Monocytes/100 WBC (Bld) 11.0 % Normal 1.7-12.0 [facility] Comment on above: Performed By: #### C BC #### [facility] [address] [place] [address] Dr. Francesca Ortiz NEUT # 2.8 103/ul Normal 1.4-6.5 [facility] Comment on above: Performed By: #### C BC #### [facility] [address] [place] [address] Dr. Francesca Ortiz Neutrophils/100 WBC (Bld) 55.1 % Normal 43.0-75.0 [facility] Comment on above: Performed By: #### C BC #### [facility] [address] [place] [address] Dr. Francesca Ortiz Platelet mean volume (Bld) [Entitic vol] 11.0 fL Normal 9.5-13.5 [facility] Comment on above: Performed By: #### C BC #### [facility] [address] [place] [address] Dr. Francesca Ortiz PLT 136 103/ul Critically low 150-450 [facility] Comment on above: Performed By: #### C BC #### [facility] [address] [place] [address] Dr. Francesca Ortiz RBC 3.90 106/ul Critically low 4.20-5.40 [facility] Comment on above: Performed By: #### C BC #### [facility] [address] [place] [address] Dr. Francesca Ortiz WBC 5.1 103/ul Normal 4.0-11.0 [facility] Comment on above: Performed By: #### C BC #### [facility] [address] [address] [address] ABD/PELV W CONon 05-10-20 CT ABD/PELV W CON EXAMINATION: CT ABD/PELV W CON HISTORY: Injury of flank , fell down stairs with right lower back and flank pain. COMPARISON: None. TECHNIQUE: Enhanced helical acquisition obtained through the abdomen and pelvis. Dose reduction techniques were achieved by using automated exposure control and/or adjustment of mA and/or kV according to patient size and/or use of iterative reconstruction technique. FINDINGS: Minimal dependent atelectasis within the included lung bases. Cirrhotic morphology of the liver. Prior cholecystectomy. Mild splenomegaly with the spleen measuring approximately 14 cm craniocaudal length. Prior gastric bypass surgery. Gastric fundal diverticulum. There are a few borderline enlarged right retrocrural lymph nodes which are nonspecific. A 1.8 cm exophytic cyst arising from the lateral right renal cortex. Moderate diffuse atherosclerotic disease. No enlarged lymph nodes within the pelvis. There is image degradation secondary beam hardening artifact from the patient's left hip arthroplasty. Diverticulosis without radiographic evidence of diverticulitis. Moderate stool burden within the colon. The appendix is not identified. No ascites or focal intraperitoneal fluid collections. Degenerative grade 1 anterolisthesis of L3 on L4 and L4-L5. IMPRESSION: 1. No acute posttraumatic change within the chest, abdomen or the pelvis. 2. Cirrhotic morphology of liver. Splenic enlargement indicating portal venous hypertension. 3. Prior gastric bypass surgery. Prior cholecystectomy. 4. Borderline enlarged right retrocrural lymph nodes which are nonspecific and may be reactive. 5. Exophytic right renal cortical cyst. 6. Diverticulosis without radiographic evidence of diverticulitis. 7. Grade 1 degenerative anterolisthesis of L3 on L4 and L4 on L5. Severe multilevel bilateral facet arthropathy. Diffuse demineralization. Electronically authenticated by: CHEN ZAMORANO Date: 2022-05-10 15:30 Normal [facility] PROF CHEM 8 (BAS METB)on Anion gap [Moles/Vol] 9.9 mmol/L Normal [facility] Comment on above: Performed By: #### B MP #### [facility] [address] [address] [address] Francesca Ortiz Calcium [Mass/Vol] 9.5 mg/dL Normal 8.5-10.1 [facility] Comment on above: Performed By: #### B MP #### [facility] [address] [address] [address] Francesca Ortiz Chloride [Moles/Vol] 104 mmol/L Normal 98-107 [facility] Comment on above: Performed By: #### B MP #### [facility] [address] [address] [address] Francesca Ortiz CO2 [Moles/Vol] 27.2 mmol/L Normal 21.0-32.0 [facility] Comment on above: Performed By: #### B MP #### [facility] [address] [place] [address] Dr. Francesca Ortiz Creatinine [Mass/Vol] 0.88 mg/dL Normal 0.55-1.02 [facility] Comment on above: Performed By: #### B MP #### [facility] [address] [address] [address] Francesca Ortiz EGFR-AF SLOVENIAN >60 Normal >=60 [facility] Comment on above: Performed By: #### B MP #### [facility] [address] [place] [address] Dr. Francesca Ortiz EGFR-NON AF SLOVENIAN >60 Normal >=60 [facility] Comment on above: Performed By: #### B MP #### [facility] [facility] [address] [address] [address] Francesca Ortiz Glucose [Mass/Vol] 111 mg/dL Critically high 74-106 [facility] Comment on above: Performed By: #### B MP #### [facility] [address] [address] [address] Francesca Ortiz Potassium [Moles/Vol] 4.1 mmol/L Normal 3.5-5.1 [facility] Comment on above: Performed By: #### B MP #### [facility] [address] [address] [address] Francesca Ortiz Sodium [Moles/Vol] 137 mmol/L Normal 136-145 [facility] Comment on above: Performed By: #### B MP #### [facility] [address] [place], [place] [address] Dr. Francesca Ortiz Urea nitrogen [Mass/Vol] 17.0 mg/dL Normal 7.0-18.0 [facility] Comment on above: Performed By: #### B MP #### [facility] [address] [place], [place] [address] Dr. Francesca Ortiz Urea nitrogen/Creatinine [Mass ratio] 19.3 mg/mg Normal [facility] Comment on above: Performed By: #### B MP #### [facility] [id number] Francesca Ortiz GLUCOSE (POC DEVICE)on 11-14 GLUCOSE, POINT OF CARE 169 High [facility] Interpretation and review of laboratory results Abnormal [facility] Operator [id number] [facility] HEMOGLOBIN & HEMATOCRITon Hematocrit (Bld) [Volume fraction] 34.9 % Low 36.0 - 48.0 % [facility] Hemoglobin (Bld) [Mass/Vol] 11.2 g/dL Low [facility] Interpretation and review of laboratory results Abnormal [facility] NOVEL CORONAVIRUS LAB 1 - NA SOPHARYNGEALon 11-14-2021 NARRATIVE -1 This test was performed using isothermal GIO and has been approved as Emergency Use Authorization (EUA) for the qualitative detection [id number] nucleic acid. [facility] SARS-CoV-2 (COVID-19) RNA GIO+probe Ql (Unsp spec) Not detected NOT DETECTED [facility] Comment on above: Negative results do not preclude SARS-CoV-2 infection and should not be used as the sole basis for treatment or other patient management decisions. Optimum specimen types and timing for peak viral levels during infections caused by SARS-CoV-2 has not been determined. The possibility of a false negative result should especially be considered if the patient's recent exposures or clinical presentation suggest that SARS-CoV-2 infection is probable, and diagnostic tests for other causes of illness (e.g., other respiratory illness) are negative. Collection of a new specimen and re-testing may be necessary if the patient is critically ill or clinically deteriorating. [facility] PROTIME-INRon 11-14-2021 INR Coag (PPP) [Relative time] 1.15 {INR} High [facility] Comment on above: 2.0-3.0 THERAPEUTIC RANGE 2.5-3.5 MECHANICAL VALVE RANGE Interpretation and review of laboratory results Abnormal [facility] Carbonated Content PT Coag (PPP) [Time] 14.9 s [facility] TYPE AND SCREEN - POSSIBLE T RANSFUSIONon 11-14-2021 ABO and Rh group Nom (Bld ) Positive [facility] ARM BAND NUMBER [id number] [facility] Blood group antibody screen Ql Negative [facility] Carbonated Content EXPIRATION DATE 11/17/2021,2354 [facility] XR PELVIS AP ONLYon 11-14-20 IMPRESSION: Routine postoperative changes. RADIOLOGY EXAM: XR PELVIS AP ONLY HISTORY: TILA. COMPARISON: 06/06/2021. TECHNIQUE: Frontal view of the pelvis. FINDINGS: There is new left hip arthroplasty hardware. There are no acute fractures or dislocations. RADIOLOGY Ashley, Mohini Robins MD - 11/14/2021 EXAM: XR PELVIS AP ONLY HISTORY: TILA. COMPARISON: 06/06/2021. TECHNIQUE: Frontal view of the pelvis. FINDINGS: There is new left hip arthroplasty hardware. There are no acute fractures or dislocations. IMPRESSION IMPRESSION: Routine postoperative changes. [facility] Radiology Study observation (narrative) [facility] XR PELVIS AP ONLYOrdered By: Mohini Ramirez on 11-14-2021 [facility] Work Phone: Complete Blood Counton 11-07 Erythrocyte distribution width (RBC) [Ratio] 17.0 % High 11.0-15.0 [facility] Comment on above: Performed By: #### C BC #### [facility] [address], [place] [id number] Hematocrit (Bld) [Volume fraction] 37.3 % Normal 35.0-47.0 [facility] Comment on above: Performed By: #### C BC #### [facility] [address], [place] [id number] Hemoglobin (Bld) [Mass/Vol] 11.6 g/dL Normal 11.6-15.5 [facility] Specialist Comment on above: Performed By: #### C BC #### [facility] [address], [place] [id number] MCH (RBC) [Entitic mass] 28.6 pg Normal 27.0-33.0 [facility] Specialist Comment on above: Performed By: #### C BC #### [facility] [address], [place] [id number] MCHC (RBC) [Mass/Vol] 31.1 g/dL Low 32.0-36.0 [facility] Specialist Comment on above: Performed By: #### C BC #### [facility] [address], [place] [id number] MCV (RBC) [Entitic vol] 92 fL Normal 80-100 [facility] Specialist Comment on above: Performed By: #### C BC #### [facility] [address], [place] [id number] Platelet mean volume (Bld) [Entitic vol] 11.10 fL Normal 7.50-12.50 [facility] Specialist Comment on above: Performed By: #### C BC #### [facility] [address], [place] [id number] Platelets (Bld) [#/Vol] 155 10*3/uL Normal 140-400 [facility] Specialist Comment on above: Performed By: #### C BC #### [facility] [address], [place] [id number] RBC (Bld) [#/Vol] 4.06 10*6/uL Normal 3.90-5.20 [facility] Specialist Comment on above: Performed By: #### C BC #### [facility] [address], [place] [id number] RDW-SD 57.8 fL High 37.0-50.0 [facility] Specialist Comment on above: Performed By: #### C BC #### [facility] [address], [place] [id number] WBC (Bld) [#/Vol] 5.6 10*3/uL Normal 3.8-11.0 [facility] [place] [facility] Comment on above: Performed By: #### C BC #### [facility] [address] [facility] [place] [id number] Vital Signs Date Time Vital Sign Value Performing Clinician Facility 10-08-2023 13:00-0500 Body height 157.48 cm Pb [facility] Other [facility] Other 10-08-2023 13:00-0500 Body mass index (BMI) [Ratio] 32.55 kg/m2 [facility] Other [facility] Other 10-08-2023 13:00-0500 Body weight 80.74 kg Pb [facility] Other [facility] Other 10-08-2023 13:00-0500 Diastolic blood pressure 67 mm[Hg] Pb [facility] Other [facility] Other 10-08-2023 13:00-0500 SaO2% (BldA) [Mass fraction] 95 % [facility] Other [facility] Other 10-08-2023 13:00-0500 Systolic blood pressure 124 mm[Hg] Pb [facility] Other [facility] Other 11-27-2022 15:05-0500 Body height 157.5 cm Cheryl Sahni [employer] Work Phone: [facility] 11-27-2022 15:05-0500 Body mass index (BMI) [Ratio] 34.39 kg/m2 Chreyl Sahni [employer] Work Phone: [facility] 11-27-2022 15:05-0500 Body temperature 97 [degF] Cheryl Maurice [employer] Work Phone: [facility] 11-27-2022 15:05-0500 Body weight 85.28 kg Cheryl Sahni [employer] Work Phone: [facility] 08-08-2022 08:48-0400 Body height 157.5 cm Marcus Calles MD Work Phone: [facility] 08-08-2022 08:48-0400 Body mass index (BMI) [Ratio] 34.56 kg/m2 Marcus Calles MD Work Phone: [facility] 08-08-2022 08:48-0400 Body temperature 98.49 [degF] Marcus Calles MD Work Phone: [facility] 08-08-2022 08:48-0400 Body weight 85.7 kg Marcus Calles MD Work Phone: [facility] 08-01-2022 11:19-0400 Body height 157.5 cm Jeyson Lew MD Work Phone: [facility] 08-01-2022 11:19-0400 Body mass index (BMI) [Ratio] 34.57 kg/m2 Jeyson Lew MD Work Phone: [facility] 08-01-2022 11:19-0400 Body weight 85.73 kg Jeyson Lew MD Work Phone: [facility] 04-06-2022 09:43-0400 Body height 157.5 cm Jeyson Lew MD Work Phone: [facility] 04-06-2022 09:43-0400 Body mass index (BMI) [Ratio] 34.57 kg/m2 Jeyson Lew MD Work Phone: [facility] 04-06-2022 09:43-0400 Body weight 85.73 kg Jeyson Lew MD Work Phone: [facility] 12-07-2021 14:22-0500 Body height 157.5 cm Cheryl Sahni [employer] Work Phone: [facility] 12-07-2021 14:22-0500 Body mass index (BMI) [Ratio] 34.57 kg/m2 Cheryl Sahni [employer] Work Phone: [facility] 12-07-2021 14:22-0500 Body temperature 98.2 [degF] Cheryl Sahni [employer] Work Phone: [facility] 12-07-2021 14:22-0500 Body weight 85.73 kg Cheryl Sahni [employer] Work Phone: [facility] 11-14-2021 18:30-0500 Diastolic blood pressure 68 mm[Hg] Jeyson Lew MD Work Phone: [facility] 11-14-2021 18:30-0500 Heart rate 73 /min Jeyson Lew MD Work Phone: [facility] 11-14-2021 18:30-0500 Respiratory rate 20 /min Jeyson Lew MD Work Phone: [facility] 11-14-2021 18:30-0500 SaO2% (BldA) [Mass fraction] 96 % Jeyson Lew MD Work Phone: [facility] 11-14-2021 18:30-0500 Systolic blood pressure 154 mm[Hg] Jeyson Lew MD Work Phone: [facility] 11-14-2021 12:44-0500 Body temperature 98.2 [degF] Jeyson Lew MD Work Phone: [facility] 11-14-2021 08:23-0500 Body height 157.5 cm Jeyson Lew MD Work Phone: [facility] 11-14-2021 08:23-0500 Body mass index (BMI) [Ratio] 34.39 kg/m2 Jeyson Lew MD Work Phone: [facility] 11-14-2021 08:23-0500 Body weight 85.28 kg Jeyson Lew MD Work Phone: [facility] 10-03-2021 14:00-0400 Body height 157.48 cm bP [facility] Other [facility] Other 10-03-2021 14:00-0400 Body mass index (BMI) [Ratio] 35.3 kg/m2 Pb Daniele Other [facility] Other 10-03-2021 14:00-0400 Body temperature 97.7 [degF] Pb Daniele Other [facility] Other 10-03-2021 14:00-0400 Body weight 87.54 kg Pb Daniele Other [facility] Other 10-03-2021 14:00-0400 Diastolic blood pressure 71 mm[Hg] Pb Daniele Other [facility] Other 10-03-2021 14:00-0400 SaO2% (BldA) [Mass fraction] 98 % Pb Daniele Other [facility] Other 10-03-2021 14:00-0400 Systolic blood pressure 146 mm[Hg] Pb Daniele Other [facility] Other Encounters Encounter Date Encounter Type Care Provider Facility Start: 11-04-2023 End: 11-04-2023 ambulatory JOSE CRUZ H TIMMIS Not Available Start: 10-08-2023 Office outpatient vi sit 25 minutes Pb [facility] Start: 10-08-2023 End: 10-08-2023 ambulatory II Tyshawn Hickman Work Phone: [facility] [place] [facility] Work Phone: Start: 10-08-2023 End: 10-08-2023 Patient encounter procedure II Tyshawn Hickman Work Phone: [facility] Work Phone: Start: 02-28-2023 End: 03-01-[address] TYSHAWN HICKMAN Facility: Start: 12-12-2022 ambulatory CHERYL MAURICE [facility] Start: 11-27-2022 ambulatory [facility] Start: 11-27-2022 End: 11-27-2022 Office outpatient visit 15 minutes Cheryl Sahni [employer] Work Phone: [facility] Comment on above: Primary osteoarthrit is of one hip, left (Primary Dx) Start: 11-27-2022 End: 11-27-2022 Subsequent hospital visit by physician Cheryl Sahni [employer] Work Phone: [facility] Start: 10-03-2022 End: 10-03-[address] ROLA IVORY Facility:[facility] Start: 09-17-2022 End: 09-17-2022 ambulatory ALEXANDRA DOE . Facility:[facility] Start: 08-08-2022 ambulatory [facility] Start: 08-08-2022 End: 08-08-2022 Office outpatient new 30 minutes Marcus Calles MD Work Phone: [facility] Comment on above: Trigger finger of le ft hand, unspecified finger (Primary Dx) Start: 08-01-2022 ambulatory [facility] Start: 08-01-2022 End: 08-01-2022 Office outpatient visit 15 minutes Jeyson Lew MD Work Phone: [facility] Comment on above: Hx of total hip arth roplasty, left (Primary Dx); Pain due to left hip joint prosthesis, sequela Start: 08-01-2022 End: 08-01-2022 Subsequent hospital visit by physician Jeyson Lew MD Work Phone: [facility] Start: 06-07-2022 End: 06-08-[address] TYSHAWN HICKMAN Facility:[facility] Start: 05-28-2022 End: 05-29-[address] TYSHAWN HICKMAN Facility:[facility] Start: 05-26-2022 End: 05-26-[address] TYSHAWN HICKMAN Facility:[facility] Start: 05-10-2022 End: 05-10-[address] APRIL LÓPEZ . Facility:[facility] Start: 04-06-2022 ambulatory JEYSON LEW [facility] Start: 04-06-2022 End: 04-06-2022 Office outpatient visit 15 minutes Jeyson Lew MD Work Phone: [facility] Comment on above: Hx of total hip arth roplasty, left (Primary Dx) Start: 04-06-2022 End: 04-06-2022 Subsequent hospital visit by physician Jeyson Lew MD Work Phone: [facility] Start: 01-10-2022 [facility] Start: 01-10-2022 End: 01-19-2022 Postop follow up visit related to original px [facility] [employer] Work Phone: [facility] Comment on above: Hx of total hip arth roplasty, left (Primary Dx) Start: 01-10-2022 [facility] Start: 12-07-2021 End: 12-07-2021 Postop follow up visit related to original px Jeyson Lew MD Work Phone: [facility] Comment on above: Hx of total hip arth roplasty, left (Primary Dx) Start: 12-07-2021 End: 12-07-2021 Subsequent hospital visit by physician Cheryl Sahni [employer] Work Phone: [facility] Start: 11-14-2021 End: 11-14-2021 Patient encounter status Jeyson Lew MD Work Phone: [facility] Start: 11-14-2021 End: 11-14-2021 Subsequent hospital visit by physician Jeyson Lew MD Work Phone: [facility] Comment on above: Primary osteoarthrit is of left hip Start: 11-06-2021 End: 11-06-2021 Admission to establishment Santiago Deysi Ont Pat Testing [facility] Comment on above: Preop testing (Prima ry Dx) Start: 11-06-2021 End: 11-06-2021 Patient encounter status Santiago Deysi Ont Pat Testing [facility] Start: 10-03-2021 End: 10-03-2021 ambulatory Pb Sanabria Other [employer] Other Start: 10-03-2021 Office outpatient vi sit 25 minutes [facility] Procedures Date Procedure Procedure Detail Performing Clinician Start: 08-08-2022 Injection 1 tendon sheath/ligament aponeurosis Marcus Calles MD Work Phone: Start: 11-14-2021 Blood count hematocrit Cheryl Sahni [employer] Work Phone: Start: 11-14-2021 Gluc bld gluc mntr d ev cleared fda spec home use Jeyson Lew MD Work Phone: Start: 11-14-2021 Radiologic examinati on pelvis 1/2 views Cheryl Sahni [employer] Work Phone: Start: 11-14-2021 Iadna nos amplified probe tq each organism Cheryl Sahni [employer] Work Phone: Start: 11-14-2021 Blood typing serologic abo Jeyson Lew MD Work Phone: Start: 11-14-2021 Prothrombin time Jeyson Lew MD Work Phone: Plan of Treatment Date Care Activity Detail Author Start: 08-03-2024 Tetanus vaccination TETANUS [facility] Start: 11-14-2022 End: 11-14-2022 Patient encounter procedure 11/14/2022 Office Visit Orthopaedics Cheryl Sahni [employer] [address] [place] [address] [facility] Start: 10-10-2022 End: 10-10-2022 Patient encounter procedure 10/10/2022 Office Visit Orthopaedics Marcus Calles MD [address] [place] [id number] [facility] Start: 08-31-2022 Potassium [Moles/vol ume] in Serum or Plasma POTASSIUM [facility] Start: 08-08-2022 End: 08-08-2022 Patient encounter procedure 08/08/2022 Office Visit Orthopaedics Marcus Calles MD [address] [place] [address] [facility] Start: 08-02-2022 Influenza vaccination INFLUENZA VACC INE (#1) [facility] Start: 03-15-2022 End: 03-15-2022 Patient encounter procedure 03/15/2022 Office Visit Orthopaedics Jeyson Lew MD [address] [place] [id number] [facility] Start: 12-28-2021 End: 12-28-2021 Patient encounter procedure [facility] Start: 12-07-2021 End: 12-07-2021 Patient encounter procedure 12/07/2021 Office Visit Orthopaedics Cheryl Sahni [employer] [address] [place] [address] [facility] Start: 11-14-2021 End: 11-14-2021 Admission to same day surgery center 11/14/2021 Surgery Multispecialty Jeyson Lew MD [address] [place] [id number] ARTHROPLASTY HIP TOTAL AL - LEFT [facility] Comment on above: ARTHROPLASTY HIP TOT AL AL - LEFT Start: 11-14-2021 End: 11-14-2021 Arthrp acetblr/prox fem prostc agrft/algrft ARTHROPLASTY HIP TOTAL LATERAL APPROACH Primary osteoarthritis of left hip 11/14/2021 10:00 AM EST [facility] Start: 11-14-2021 Subsequent hospital visit by physician 11/14/2021 Hospital Encounter Multispecialty Jeyson Lew MD [address] [place] [id number] Primary osteoarthritis of left hip [facility] Comment on above: Primary osteoarthrit is of left hip Start: 09-16-2021 COVID-19 VACCINE (3 - Booster for Moderna series) COVID-19 VACCINE (3 - Booster for Moderna series) [facility] Start: 08-17-2021 COVID-19 VACCINE (3 - Booster for Moderna series) COVID-19 VACCINE (3 - Booster for Moderna series) [facility] Start: 08-02-2021 Influenza vaccination INFLUENZA VACC INE (#1) [facility] Start: 05-12-2021 COVID-19 VACCINE (3 - Booster for Moderna series) COVID-19 VACCINE (3 - Booster for Moderna series) [facility] Start: 10-09-2019 Pneumococcal vaccination PNEUM OCOCCAL VACCINE SERIES (#3) [facility] Start: 2017 Pneumococcal vaccination [facility] Start: 2002 Zoster vaccine hzv l bolivar for subcutaneous use ZOSTER (SHINGLES) VACCINE (1 of 2) [facility] Start: 1997 Colonoscopy COLORECTAL CAN CER SCREENING DISCUSSION [facility] Start: 1997 Screening for malign ant neoplasm of colon COLORECTAL CANCER SCREENING DISCUSSION [facility] Start: 1992 Fasting lipid profile LIPID SCREENIN G [facility] Start: 1992 Lipid panel LIPID SCREENING [facility] Start: 1992 Screening for malign ant neoplasm of breast MAMMOGRAM SCREENING DISCUSSION [facility] Start: 1992 Screening mammography MAMMOGRA M SCREENING DISCUSSION [facility] Start: 1973 Screening for malign ant neoplasm of cervix CERVICAL CANCER SCREENING DISCUSSION [facility] Start: 1971 Third diphtheria, tetanus and acellular pertussis (DTaP) vaccination TDAP (ADULT) [facility] Start: 1970 Tetanus vaccination TETANUS [facility] Start: 1952 Hepatitis C antibody , confirmatory test HEPATITIS C VIRUS SCREENING [facility] Start: 1952 Hepatitis C screening HEPATITI S C VIRUS SCREENING [facility] Start: 1952 Screening for osteoporosis DEXA SCAN DISCUSSION [facility] End: 11-14-2021 Radiography of hip [facility] Work Phone: Comment on above: One Time for 1 Occur rences starting 11/14/2021 until 11/14/2021 Skeletal X-ray of pe lvis and hip XR HIP WITH PELVIS LEFT Imaging Routine Hx of total hip arthroplasty, left 12/07/2021 1:53 [facility] S[facility] X-ray of pe lvis and hip XR HIP WITH PELVIS LEFT Imaging Routine Hx of total hip arthroplasty, left 01/16/2022 9:52 AM [facility] SURGICAL PATHOLOGY REQUEST SURGICAL PATHOLOGY REQUEST Surg Path Routine Primary osteoarthritis of left hip Release Upon Ordering for 1 Occurrences starting 11/14/2021 [facility] Comment on above: Release Upon Orderin g for 1 Occurrences starting 11/14/2021 XR Pelvis and Hip - left Views XR HIP WITH PELVIS LEFT Imaging Routine Hx of total hip arthroplasty, left 04/06/2022 8:24 AM [facility] Work Phone: XR Pelvis and Hip - left Views XR HIP WITH PELVIS LEFT Imaging Routine Hx of total hip arthroplasty, left 08/01/2022 10:18 AM [facility] [employer] [facility] XR Pelvis and Hip - left Views XR HIP WITH PELVIS LEFT Imaging Routine Hx of total hip arthroplasty, left 11/27/2022 2:46 PM [facility] Immunizations Immunization Date Immunization Notes Care Provider Cherelle santo 09-06-2021 influenza virus vaccine, unspecified formulation Jeyson Lew MD Work Phone: [facility] 03-17-2021 COVID-19 mRNA-1273 (Moderna) NAYANA Hickman Work Phone: [facility] 02-17-2021 COVID-19 mRNA-1273 (Moderna) NAYANA Hickman Work Phone: [facility] 08-31-2020 influenza virus vaccine, unspecified formulation Santiago Deysi Ont Pat Testing [facility] Payers Date Payer Category Payer Medicare [id number] 2021 Self-pay [id number] 2021 Medicare MEDICARE MEDICAR E A AND B [id number] 2021-Present [address] [place] [address] [id number] 2021 Medicare MEDICARE MEDICAR E A AND B [id number] 2021-Present [address] [place] [address] [id number]. [id number] 2019 Unknown GENERIC PAYOR ME DICARE SUPPLEMENT [id number] 2019-Present [phone] [address] [place] [address] [id number]. [id number] 2019 Unknown GENERIC PAYOR ME DICARE SUPPLEMENT [id number] 2019-Present [phone] [place] [address] 1.2.840.794330.1.13.172.2.7.3. [id number] 1959 Medicare [id number] 2.840.1.366150.19 1959 Medicare [id number] 1959 Unknown [id number] .840.1.681695.19 1959 Unknown [id number] 1952 Unknown [id number] 01.17.840.1.258694.3.579.2.98 1952 Unknown [id number] 2.840.1.086395.3.579.2.983 1952 Unknown [id number] 2.16840.1.952265.3.579.2.983 1952 Unknown [id number] 2.16840.1.608426.3.579.2.983 1952 Unknown [id number] 2.840.1.457295.3.579.2.983 1952 Unknown [id number] 2.16.840.1.700000.3.579.2.983 1952 Unknown [id number] 2.16.840.1.040652.3.579.2.983 1952 Unknown [id number] 2.16.840.1.331926.3.579.2.983 1952 Unknown [id number] 2.16.840.1.199546.3.579.2.983 1952 Unknown [id number] 2.16.840.1.324545.3.579.2.983 1952 Unknown [id number] 2.16.840.1.105757.3.579.2.593 1952 Unknown [id number] 2.16.840.1.704978.3.579.2.593 1952 Unknown [id number] 2.16.840.1.867881.3.579.2.593 1952 Unknown [id number] 2.16.840.1.901036.3.579.2.593 1952 Unknown [id number] 2.16.840.1.989746.3.579.2.593 1952 Unknown [id number] 2.16.840.1.690827.3.579.2.593 1952 Unknown [id number] 2.16.840.1.236487.3.579.2.593 1952 Unknown [id number] 2.16.840.1.087652.3.579.2.1259 Unknown [employer] [id number] Unknown [id number] 2.16.840.1.541550.3.579.2.531 Social History Date Type Detail Facility Start: 08-10-2021 End: 11-03-2021 Tobacco smoking status NHIS Ex-smoker [facility] Start: 08-10-2021 End: 11-27-2022 Tobacco use and exposure Smokeless tobacco non-user [facility] [employer] [facility] Start: 11-02-2021 End: 11-27-2022 Alcohol intake Lifetime non-drinker (finding) [facility] Start: 08-10-2021 [facility] Start: 08-10-2021 End: 11-27-2022 Tobacco Comment Quit 1999 [facility] Start: 1950 Sex Assigned At Not on file A [employer] Exposure to SARS-CoV -2 (event) Not sure [facility] Sex Assigned At Sex Assigned At Bir th [facility] Other History of tobacco use Current smoker [facility] Start: 1950 Sex Assigned At Female F [facility] Medical Equipment Procedure Code Equipment Code Equipment Original Text Equipment Identifier Dates [place] Gripton Acetabular Shell Sector 54mm Od [id number] Start: 11-14-2021 Altrx Polyethyle ne Acetabular Liner Neutral 36mm Id 54 Od [id number] Start: 11-14-2021 Femoral Stem Taper Actis Duofix Hip Prosthesis Cementless Size 6 Std Collar [id number] Start: 11-14-2021 Biolox Delta Cer amic Femoral Head +1.5 36mm Gracie 11/14 Taper [id number] Start: 11-14-2021 Suture Burns, Biocompositie Corkscrew Ft, Vented With 1.3mm White/Blue And White/Black Suture Tape [id number] Start: 11-14-2021 Suture Burns, Biocompositive Swivelock C, Closed Eyelet With #2 Fiberwire, 4.75 X 19.1mm [id number] Start: 11-14-2021 Suture Burns, Biocompositive Swivelock C, Closed Eyelet With #2 Fiberwire, 4.75 X 19.1mm [id number] Start: 11-14-2021 Clinical Notes 10-03-2021 to 10-08-2023 Note Date & Type Note Facility 10-08-2023 Evaluation note Encounter Date Diagnosis Assessment Notes Oct, Obstructive sleep apnea (ICD-10 - G47.33) Fortunately she is using and benefiting from treatment. She reports she tolerates treatment well. I encouraged her to use the machine every night, all night. She will call if problems. Anticipate return in 1 year Oct, Chronic insomnia (ICD-10 - F51.04) Her pain adds to this and she is working with her primary providers to address this part of the problem. However she is also spending too much time in bed. Encouraged her to stay out of the bed until 11 or 11:30 PM, and to get up every day at 6 AM. This should reduce her sleep latency and insomnia tendency Oct, Restless leg syndrome (ICD-10 - G25.81) Not currently an active problem [facility] Other 12-27-2022 History of Present illness Narrative* Chrystal Geovanny - 11/27/2022 3:20 PM EST Ortho Nurse - Established Patient Intake Room#: 5 Date: 11/27/2022 3:07 PM Patient: Siria Petty MR#: [id number] : 1950 Age: 72 y.o. 1yr L TILA Pt stated she has been having muscle pain when she gets up in the morning until she gets up and moving.10/10 on the pain scale. Pt stated after she gets moving she does not have the pain. Referring Physician: Self, Self Insurance: Payor: MEDICARE / Plan: MEDICARE A AND B / Product Type: *No Product type* / Chief Complaint Patient presents with Left Hip - Follow-up Visit Vitals Temp 97 F (36.1 C) (Temporal) Ht 1.575 m (5' 2 ) Wt 85.3 kg (188 lb) BMI 34.39 kg/m Pain Recent Labs No results found for: CRP No results found for: SEDRATE Lab Results Component Value Date WBC 4.2 08/31/2021 HGB 11.2 (L) 11/14/2021 HCT 34.9 (L) 11/14/2021 PLATELET 126 (L) 08/31/2021 MCV 82.4 08/31/2021 History Past Medical History: Diagnosis Date Asthma COPD (chronic obstructive pulmonary disease) Diabetes mellitus Essential hypertension, benign Hyperlipidemia Past Surgical History: Procedure Laterality Date ARTHROPLASTY HIP TOTAL Left 11/14/2021 Laterality: Left; Surgeon: Jeyson Lew MD; Location: [facility] CHOLECYSTECTOMY GASTRIC BYPASS HERNIA REPAIR umbilical x2 LITHOTRIPSY RELEASE CARPAL TUNNEL Right Family History: Her family history is not on file. Social History: Her reports that she has quit smoking. She has never used smokeless tobacco. She reports that she does not drink alcohol and does not use drugs. Outpatient Medications Prior to Visit Medication Sig Dispense Refill acetaminophen 325 MG tablet Take 2 tablets by mouth every 4 hours as needed for Mild Pain. 50 tablet 1 albuterol 108 (90 Base) MCG/ACT Aero Soln inhaler as needed. alendronate 70 MG tablet every 7 days. aspirin 81 MG Chew Tab chewable tablet Chew 81 mg daily. aspirin EC [address] Take 1 table twice a day for 30days. This medication is for blood clot prevention. 60 tablet 0 atorvastatin 40 MG tablet every evening. Calcium Citrate 1040 MG tablet Take 600 mg by mouth daily. Cholecalciferol 125 MCG (5000 UT) per tablet At bedtime. Colchicine 0.6 MG capsule as needed. cyanocobalamin 1000 MCG tablet Take 500 mcg by mouth. Once or twice/month dexAMETHasone 4 MG/ML Solution injection 1 mL by Other route As directed for 18 doses. (1 cc 3 x a week at physical therapy via iontophoresis) for up to 18 doses. 30 mL 0 diphenhydrAMINE HCl (BENADRYL ALLERGY PO) Take by mouth. docusate 100 MG capsule Take 1 capsule by mouth 2 times daily. 60 capsule 0 Ferrous Sulfate (IRON PO) 3 times daily. furOSEmide 20 MG tablet daily. hydrocortisone 2.5 % Lotion Apply topically as needed. ipratropium-albuterol 0.5-2.5 (3) MG/3ML nebulizer solution ipratropium 0.5 mg- albuterol 3 mg (2.5 mg base)/3 mL nebulization soln metFORMIN 500 MG tablet 3 times daily. metoprolol succinate 25 MG tablet XL Take by mouth daily every morning. multivitamin tablet Take 1 tablet by mouth daily. nystatin-triamcinolone 296122-9.1 UNIT/GM-% Ointment as needed. omeprazole [address] capsule Take 1 capsule by mouth daily. 30 capsule 0 ondansetron 4 MG tablet Take 1 tablet by mouth every 8 hours as needed for Nausea. 6 tablet 0 hydroCODone-acetaminophen 5-325 MG tablet Take 1-2 tablets by mouth every 6 hours as needed for Severe Pain for up to 7 days. Do not take over 4000mg acetaminophen daily. 10 tablet 0 traMADol 50 MG tablet 1-2 tabs po q 6 hr PRN pain 20 tablet 0 No facility-administered medications prior to visit. Current Outpatient Medications: acetaminophen 325 MG tablet, Take 2 tablets by mouth every 4 hours as needed for Mild Pain., Disp: 50 tablet, Rfl: 1 albuterol 108 (90 Base) MCG/ACT Aero Soln inhaler, as needed., Disp: , Rfl: alendronate 70 MG tablet, every 7 days. , Disp: , Rfl: aspirin 81 MG Chew Tab chewable tablet, Chew 81 mg daily., Disp: , Rfl: aspirin EC [address], Take 1 table twice a day for 30days. This medication is for blood clot prevention., Disp: 60 tablet, Rfl: 0 atorvastatin 40 MG tablet, every evening. , Disp: , Rfl: Calcium Citrate 1040 MG tablet, Take 600 mg by mouth daily., Disp: , Rfl: Cholecalciferol 125 MCG (5000 UT) per tablet, At bedtime., Disp: , Rfl: Colchicine 0.6 MG capsule, as needed. , Disp: , Rfl: cyanocobalamin 1000 MCG tablet, Take 500 mcg by mouth. Once or twice/month, Disp: , Rfl: dexAMETHasone 4 MG/ML Solution injection, 1 mL by Other route As directed for 18 doses. (1 cc 3 x aweek at physical therapy via iontophoresis) for up to 18 doses., Disp: 30 mL, Rfl: 0 diphenhydrAMINE HCl (BENADRYL ALLERGY PO), Take by mouth., Disp: , Rfl: docusate 100 MG capsule, Take 1 capsule by mouth 2 times daily., Disp: 60 capsule, Rfl: 0 Ferrous Sulfate (IRON PO), 3 times daily., Disp: , Rfl: furOSEmide 20 MG tablet, daily. , Disp: , Rfl: hydrocortisone 2.5 % Lotion, Apply topically as needed. , Disp: , Rfl: ipratropium-albuterol 0.5-2.5 (3) MG/3ML nebulizer solution, ipratropium 0.5 mg- albuterol 3 mg (2.5mg base)/3 mL nebulization soln, Disp: , Rfl: metFORMIN 500 MG tablet, 3 times daily. , Disp: , Rfl: metoprolol succinate 25 MG tablet XL, Take by mouth daily every morning. , Disp: , Rfl: multivitamin tablet, Take 1 tablet by mouth daily., Disp: , Rfl: nystatin-triamcinolone 257660-0.1 UNIT/GM-% Ointment, as needed. , Disp: , Rfl: omeprazole [address] capsule, Take 1 capsule by mouth daily., Disp: 30 capsule, Rfl: 0 ondansetron 4 MG tablet, Take 1 tablet by mouth every 8 hours as needed for Nausea., Disp: 6 tablet, Rfl: 0 hydroCODone-acetaminophen 5-325 MG tablet, Take 1-2 tablets by mouth every 6 hours as needed for Severe Pain for up to 7 days. Do not take over 4000mg acetaminophen daily., Disp: 10 tablet, Rfl: 0 traMADol 50 MG tablet, 1-2 tabs po q 6 hr PRN pain, Disp: 20 tablet, Rfl: 0 Allergies: She has No Known Allergies. * Cheryl Sahni APRN-[facility] - 11/27/2022 3:20 PM EST HPI: Patient is here today for evaluation of their operative hip. She is status post total hip arthroplasty. She is about a year out, reports that she is doing well and is pleased with the outcome of the intervention. The hip feels better now than itdid before, but she has pain every day on the side of thehip. Pain worse when she wakes up. Pain locally no radiation. PHYSICAL EXAM: The bilateral lower extremities were evaluated. The operative lower extremity is soft, nontender with full and supple motion of the hip. No pain, no impingement. No instability. Pian to palpatiion over the greater trochanter. The contralateral extremity has full motion, normal stability, no tenderness. Bilateral lower extremities have normal neurovascular status. Skin otherwise intact. gaitn antalgic with trendelenburg. DIAGNOSTIC STUDIES/INTERPRETATION: Plain film radiographs reviewed. She has a total hip arthroplasty in good position and alignment. No evidence of prosthetic implant loosening or migration. IMPRESSION: Stable status post total hip arthroplasty, suspected abductor tear. PLAN: I am pleased with the outcome of intervention. She has had a fall and failed improvement after PT I would like to order an MRI to evaluate the integrity of the abductor muscles. Id like to follow up after the MRI with dr lew and otherwise I recommend followup in 2 years for repeat clinicaland radiographic examination or sooner if any new symptoms develop. Tylenol may be used to manage any occasional aches and pains. She will call with any questions or concerns in the meantime. Greater than 20 minutes time was spent in review of the medical records, review of previous imaging, and more than 50% of that time was spent on face to face time with patient. Cheryl Sahni APRN-LUIS I have reviewed the findings of my clinical staff below and agree with their assessment. Ortho Nurse - Established Patient Intake Room#: 5 Date: 11/27/2022 3:07 PM Patient: Siria Petty MR#: [id number] : 1950 Age: 72 y.o. 1yr L TILA Pt stated she has been having muscle pain when she gets up in the morning until she gets up and moving.10/10 on the pain scale. Pt stated after she gets moving she does not have the pain. Referring Physician: Self, Self Insurance: Payor: MEDICARE / Plan: MEDICARE A AND B / Product Type: *No Product type* / Chief Complaint Patient presents with Left Hip - Follow-up Visit Vitals Temp 97 F (36.1 C) (Temporal) Ht 1.575 m (5' 2 ) Wt 85.3 kg (188 lb) BMI 34.39 kg/m Pain Recent Labs No results found for: CRP No results found for: SEDRATE Lab Results Component Value Date WBC 4.2 08/31/2021 HGB 11.2 (L) 11/14/2021 HCT 34.9 (L) 11/14/2021 PLATELET 126 (L) 08/31/2021 MCV 82.4 08/31/2021 History Past Medical History: Diagnosis Date Asthma COPD (chronic obstructive pulmonary disease) Diabetes mellitus Essential hypertension, benign Hyperlipidemia Past Surgical History: Procedure Laterality Date ARTHROPLASTY HIP TOTAL Left 11/14/2021 Laterality: Left; Surgeon: Jeyson Lew MD; Location: [facility] CHOLECYSTECTOMY GASTRIC BYPASS HERNIA REPAIR umbilical x2 LITHOTRIPSY RELEASE CARPAL TUNNEL Right Family History: Her family history is not on file. Social History: Her reports that she has quit smoking. She has never used smokeless tobacco. She reports that she does not drink alcohol and does not use drugs. Outpatient Medications Prior to Visit Medication Sig Dispense Refill acetaminophen 325 MG tablet Take 2 tablets by mouth every 4 hours as needed for Mild Pain. 50 tablet 1 albuterol 108 (90 Base) MCG/ACT Aero Soln inhaler as needed. alendronate 70 MG tablet every 7 days. aspirin 81 MG Chew Tab chewable tablet Chew 81 mg daily. aspirin EC [address] Take 1 table twice a day for 30days. This medication is for blood clot prevention. 60 tablet 0 atorvastatin 40 MG tablet every evening. Calcium Citrate 1040 MG tablet Take 600 mg by mouth daily. Cholecalciferol 125 MCG (5000 UT) per tablet At bedtime. Colchicine 0.6 MG capsule as needed. cyanocobalamin 1000 MCG tablet Take 500 mcg by mouth. Once or twice/month dexAMETHasone 4 MG/ML Solution injection 1 mL by Other route As directed for 18 doses. (1 cc 3 x a week at physical therapy via iontophoresis) for up to 18 doses. 30 mL 0 diphenhydrAMINE HCl (BENADRYL ALLERGY PO) Take by mouth. docusate 100 MG capsule Take 1 capsule by mouth 2 times daily. 60 capsule 0 Ferrous Sulfate (IRON PO) 3 times daily. furOSEmide 20 MG tablet daily. hydrocortisone 2.5 % Lotion Apply topically as needed. ipratropium-albuterol 0.5-2.5 (3) MG/3ML nebulizer solution ipratropium 0.5 mg- albuterol 3 mg (2.5 mg base)/3 mL nebulization soln metFORMIN 500 MG tablet 3 times daily. metoprolol succinate 25 MG tablet XL Take by mouth daily every morning. multivitamin tablet Take 1 tablet by mouth daily. nystatin-triamcinolone 402774-8.1 UNIT/GM-% Ointment as needed. omeprazole [address] capsule Take 1 capsule by mouth daily. 30 capsule 0 ondansetron 4 MG tablet Take 1 tablet by mouth every 8 hours as needed for Nausea. 6 tablet 0 hydroCODone-acetaminophen 5-325 MG tablet Take 1-2 tablets by mouth every 6 hours as needed for Severe Pain for up to 7 days. Do not take over 4000mg acetaminophen daily. 10 tablet 0 traMADol 50 MG tablet 1-2 tabs po q 6 hr PRN pain 20 tablet 0 No facility-administered medications prior to visit. Current Outpatient Medications: acetaminophen 325 MG tablet, Take 2 tablets by mouth every 4 hours as needed for Mild Pain., Disp: 50 tablet, Rfl: 1 albuterol 108 (90 Base) MCG/ACT Aero Soln inhaler, as needed., Disp: , Rfl: alendronate 70 MG tablet, every 7 days. , Disp: , Rfl: aspirin 81 MG Chew Tab chewable tablet, Chew 81 mg daily., Disp: , Rfl: aspirin EC [address], Take 1 table twice a day for 30days. This medication is for blood clot prevention., Disp: 60 tablet, Rfl: 0 atorvastatin 40 MG tablet, every evening. , Disp: , Rfl: Calcium Citrate 1040 MG tablet, Take 600 mg by mouth daily., Disp: , Rfl: Cholecalciferol 125 MCG (5000 UT) per tablet, At bedtime., Disp: , Rfl: Colchicine 0.6 MG capsule, as needed. , Disp: , Rfl: cyanocobalamin 1000 MCG tablet, Take 500 mcg by mouth. Once or twice/month, Disp: , Rfl: dexAMETHasone 4 MG/ML Solution injection, 1 mL by Other route As directed for 18 doses. (1 cc 3 x aweek at physical therapy via iontophoresis) for up to 18 doses., Disp: 30 mL, Rfl: 0 diphenhydrAMINE HCl (BENADRYL ALLERGY PO), Take by mouth., Disp: , Rfl: docusate 100 MG capsule, Take 1 capsule by mouth 2 times daily., Disp: 60 capsule, Rfl: 0 Ferrous Sulfate (IRON PO), 3 times daily., Disp: , Rfl: furOSEmide 20 MG tablet, daily. , Disp: , Rfl: hydrocortisone 2.5 % Lotion, Apply topically as needed. , Disp: , Rfl: ipratropium-albuterol 0.5-2.5 (3) MG/3ML nebulizer solution, ipratropium 0.5 mg- albuterol 3 mg (2.5mg base)/3 mL nebulization soln, Disp: , Rfl: metFORMIN 500 MG tablet, 3 times daily. , Disp: , Rfl: metoprolol succinate 25 MG tablet XL, Take by mouth daily every morning. , Disp: , Rfl: multivitamin tablet, Take 1 tablet by mouth daily., Disp: , Rfl: nystatin-triamcinolone 179996-5.1 UNIT/GM-% Ointment, as needed. , Disp: , Rfl: omeprazole [address] capsule, Take 1 capsule by mouth daily., Disp: 30 capsule, Rfl: 0 ondansetron 4 MG tablet, Take 1 tablet by mouth every 8 hours as needed for Nausea., Disp: 6 tablet, Rfl: 0 hydroCODone-acetaminophen 5-325 MG tablet, Take 1-2 tablets by mouth every 6 hours as needed for Severe Pain for up to 7 days. Do not take over 4000mg acetaminophen daily., Disp: 10 tablet, Rfl: 0 traMADol 50 MG tablet, 1-2 tabs po q 6 hr PRN pain, Disp: 20 tablet, Rfl: 0 Allergies: She has No Known Allergies. documented in this [facility]09-07-2022 History of Present illness Narrative* Heather Lane - 08/08/2022 9:15 AM EDT Review of Systems Constitutional: Negative for chills, fatigue and fever. Eyes: Negative for visual disturbance. Respiratory: Negative for shortness of breath. Cardiovascular: Negative for chest pain. Gastrointestinal: Negative for abdominal pain and blood in stool. Endocrine: Negative for polydipsia. Genitourinary: Negative for hematuria. Musculoskeletal: Positive for arthralgias. Negative for myalgias. Neurological: Negative for seizures. Hematological: Does not bruise/bleed easily. Psychiatric/Behavioral: Negative for dysphoric mood. * Aye Schafer LPN - 08/08/2022 9:15 AM EDTAssociated Order(s): UPPER EXTREMITY INJECTION: L long A1 Post-Procedure Diagnose(s): Trigger finger of left hand, unspecified finger UPPER EXTREMITY INJECTION: L long A1 Date/Time: 08/08/2022 9:15 AM Supporting Documentation Indications: pain Procedure Details: Procedure: tendon sheath / ligament injection Location: long finger - L long A1 Needle size: 25 G Approach: superolateral Medications administered: 40 mg methylPREDNISolone acetate 40 MG/ML; 2 mL bupivacaine 0.25 %; 2 mL lidocaine 10 mg/mL Medication Verification: I have personally verified and performed the final check of the medication(s) used in this procedure prior to administration. The following items were included during the verification process for medication(s) administered: drug name, strength, volume, expiration, physical integrity and appearance of the medication(s). Patient tolerance: patient tolerated the procedure well with no immediate complications Comments Risk and Benefits were discussed with the patient and they wished to proceed. The procedure was performed aseptically and was tolerated by the patient. Consent: Consent was obtained prior to the procedure after discussion of the risks, benefits and alternatives, and expected outcomes were discussed with the patient. The possibilities of reaction to medication, bleeding, infection, the need for additional procedures, failure to diagnosis a condition, and creating a complication requiring operation were discussed with the patient. The patient concurred with the proposed plan, giving consent. Preparation: Patient was prepped in the usual sterile fashion. The patient was prepped with alcohol. * Marcus Calles MD - 08/08/2022 9:15 AM EDT 08/08/22 Chief Complaint Patient presents with Left Middle Finger - Consult Middle finger triggering HPI: Siria presents today with chief complaint of left long finger triggering. She has had this forabout a month with no known history of trauma. She continues to walk a fair amount after hip replacement. It does hurt with a pain of 8 when it locks. Past Medical History: Diagnosis Date Asthma COPD (chronic obstructive pulmonary disease) Diabetes mellitus Essential hypertension, benign Hyperlipidemia Past Surgical History: Procedure Laterality Date ARTHROPLASTY HIP TOTAL Left 11/14/2021 Laterality: Left; Surgeon: Jeyson Lew MD; Location: [facility] CHOLECYSTECTOMY GASTRIC BYPASS HERNIA REPAIR umbilical x2 LITHOTRIPSY RELEASE CARPAL TUNNEL Right Current Outpatient Medications: acetaminophen 325 MG tablet, Take 2 tablets by mouth every 4 hours as needed for Mild Pain., Disp: 50 tablet, Rfl: 1 albuterol 108 (90 Base) MCG/ACT Aero Soln inhaler, as needed., Disp: , Rfl: alendronate 70 MG tablet, every 7 days. , Disp: , Rfl: aspirin 81 MG Chew Tab chewable tablet, Chew 81 mg daily., Disp: , Rfl: aspirin EC [address], Take 1 table twice a day for 30days. This medication is for blood clot prevention., Disp: 60 tablet, Rfl: 0 atorvastatin 40 MG tablet, every evening. , Disp: , Rfl: Calcium Citrate 1040 MG tablet, Take 600 mg by mouth daily., Disp: , Rfl: Cholecalciferol 125 MCG (5000 UT) per tablet, At bedtime., Disp: , Rfl: Colchicine 0.6 MG capsule, as needed. , Disp: , Rfl: cyanocobalamin 1000 MCG tablet, Take 500 mcg by mouth. Once or twice/month, Disp: , Rfl: dexAMETHasone 4 MG/ML Solution injection, 1 mL by Other route As directed for 18 doses. (1 cc 3 x aweek at physical therapy via iontophoresis) for up to 18 doses., Disp: 30 mL, Rfl: 0 diphenhydrAMINE HCl (BENADRYL ALLERGY PO), Take by mouth., Disp: , Rfl: docusate 100 MG capsule, Take 1 capsule by mouth 2 times daily., Disp: 60 capsule, Rfl: 0 Ferrous Sulfate (IRON PO), 3 times daily., Disp: , Rfl: furOSEmide 20 MG tablet, daily. , Disp: , Rfl: hydrocortisone 2.5 % Lotion, Apply topically as needed. , Disp: , Rfl: ipratropium-albuterol 0.5-2.5 (3) MG/3ML nebulizer solution, ipratropium 0.5 mg- albuterol 3 mg (2.5mg base)/3 mL nebulization soln, Disp: , Rfl: metFORMIN 500 MG tablet, 3 times daily. , Disp: , Rfl: metoprolol succinate 25 MG tablet XL, Take by mouth daily every morning. , Disp: , Rfl: multivitamin tablet, Take 1 tablet by mouth daily., Disp: , Rfl: nystatin-triamcinolone 136521-4.1 UNIT/GM-% Ointment, as needed. , Disp: , Rfl: omeprazole [address] capsule, Take 1 capsule by mouth daily., Disp: 30 capsule, Rfl: 0 ondansetron 4 MG tablet, Take 1 tablet by mouth every 8 hours as needed for Nausea., Disp: 6 tablet, Rfl: 0 hydroCODone-acetaminophen 5-325 MG tablet, Take 1-2 tablets by mouth every 6 hours as needed for Severe Pain for up to 7 days. Do not take over 4000mg acetaminophen daily., Disp: 10 tablet, Rfl: 0 traMADol 50 MG tablet, 1-2 tabs po q 6 hr PRN pain, Disp: 20 tablet, Rfl: 0 No Known Allergies Social History Socioeconomic History Marital status: Spouse name: Not on file Number of children: Not on file Years of education: Not on file Highest education level: Not on file Occupational History Not on file Tobacco Use Smoking status: Former Smoker Smokeless tobacco: Never Used Tobacco comment: Quit 1999 Vaping Use Vaping Use: Never used Substance and Sexual Activity Alcohol use: Never Drug use: Never Sexual activity: Not on file Other Topics Concern Not on file Social History Narrative Not on file Social Determinants of Health Financial Resource Strain: Not on file Food Insecurity: Not on file Transportation Needs: Not on file Physical Activity: Not on file Stress: Not on file Social Connections: Not on file Intimate Partner Violence: Not on file Housing Stability: Not on file History reviewed. No pertinent family history. Review of Systems Constitutional: Negative for chills, fatigue and fever. Eyes: Negative for visual disturbance. Respiratory: Negative for shortness of breath. Cardiovascular: Negative for chest pain. Gastrointestinal: Negative for abdominal pain and blood in stool. Endocrine: Negative for polydipsia. Genitourinary: Negative for hematuria. Musculoskeletal: Positive for arthralgias. Negative for myalgias. Neurological: Negative for seizures. Hematological: Does not bruise/bleed easily. Psychiatric/Behavioral: Negative for dysphoric mood. UPPER EXTREMITY INJECTION: L long A1 Date/Time: 08/08/2022 9:15 AM Supporting Documentation Indications: pain Procedure Details: Procedure: tendon sheath / ligament injection Location: long finger - L long A1 Needle size: 25 G Approach: superolateral Medications administered: 40 mg methylPREDNISolone acetate 40 MG/ML; 2 mL bupivacaine 0.25 %; 2 mL lidocaine 10 mg/mL Medication Verification: I have personally verified and performed the final check of the medication(s) used in this procedure prior to administration. The following items were included during the verification process for medication(s) administered: drug name, strength, volume, expiration, physical integrity and appearance of the medication(s). Patient tolerance: patient tolerated the procedure well with no immediate complications Comments Risk and Benefits were discussed with the patient and they wished to proceed. The procedure was performed aseptically and was tolerated by the patient. Consent: Consent was obtained prior to the procedure after discussion of the risks, benefits and alternatives, and expected outcomes were discussed with the patient. The possibilities of reaction to medication, bleeding, infection, the need for additional procedures, failure to diagnosis a condition, and creating a complication requiring operation were discussed with the patient. The patient concurred with the proposed plan, giving consent. Preparation: Patient was prepped in the usual sterile fashion. The patient was prepped with alcohol. Physical Examination: Vitals: 08/08/22 0848 Temp: 98.5 degrees F (36.9 degrees C) Weight: 85.7 kg (188 lb 15 oz) Height: 1.575 m (5' 2 ) Extremity: Examination of her left upper extremity demonstrates a triggering left long finger. Intact sensation. Brisk capillary refill. Skin is warm and dry. Full finger motion. Assessment: 1. Left long finger triggering. Plan: She desires an injection. This was performed aseptically per the procedure note. She was given appropriate precautions about her blood sugars and she was given instructions on Tylenol, ice and elevation for discomfort if needed after the shot. I will see her back in about 2 months. documented in this [facility]08-31-2022 History of Present illness Narrative* Jaswant Baldwin LPN - 08/01/2022 10:30 AM EDT Ortho Nurse - Established Patient Intake Room#: 3 Left TILA 11-14-21, had a fall on 05-10-22 went to [facility] and was told everything looked good and was given pain medication which she is done with. Before fall she states she was doing great with occasional pain of 2, since her fall the pain radiates down to her foot and is a 10 Date: 08/01/2022 11:26 AM Patient: Siria Petty MR#: [id number] : 1950 Age: 72 y.o. Referring Physician: Jeyson Lew MD Insurance: Payor: MEDICARE / Plan: MEDICARE A AND B / Product Type: *No Product type* / Chief Complaint Patient presents with Left Hip - Pain Visit Vitals Ht 1.575 m (5' 2 ) Wt 85.7 kg (189 lb) BMI 34.57 kg/m Pain Presence of Pain: complains of pain/discomfort Pain Location: hip, left Select Pain Scale: DVPRS (Defense and Veterans Pain Rating Scale) (Adult- Cognitively Intact) Pain Location: hip, left Select Pain Scale: DVPRS (Defense and Veterans Pain Rating Scale) (Adult- Cognitively Intact) Recent Labs No results found for: CRP No results found for: SEDRATE Lab Results Component Value Date WBC 4.2 08/31/2021 HGB 11.2 (L) 11/14/2021 HCT 34.9 (L) 11/14/2021 PLATELET 126 (L) 08/31/2021 MCV 82.4 08/31/2021 History Past Medical History: Diagnosis Date Asthma COPD (chronic obstructive pulmonary disease) Diabetes mellitus Essential hypertension, benign Hyperlipidemia Past Surgical History: Procedure Laterality Date ARTHROPLASTY HIP TOTAL Left 11/14/2021 Laterality: Left; Surgeon: Jeyson Lew MD; Location: [facility] CHOLECYSTECTOMY GASTRIC BYPASS HERNIA REPAIR umbilical x2 LITHOTRIPSY RELEASE CARPAL TUNNEL Right Family History: Her family history is not on file. Social History: Her reports that she has quit smoking. She has never used smokeless tobacco. She reports that she does not drink alcohol and does not use drugs. Outpatient Medications Prior to Visit Medication Sig Dispense Refill albuterol 108 (90 Base) MCG/ACT Aero Soln inhaler as needed. alendronate 70 MG tablet every 7 days. aspirin 81 MG Chew Tab chewable tablet Chew 81 mg daily. atorvastatin 40 MG tablet every evening. Calcium Citrate 1040 MG tablet Take 600 mg by mouth daily. Cholecalciferol 125 MCG (5000 UT) per tablet At bedtime. Colchicine 0.6 MG capsule as needed. cyanocobalamin 1000 MCG tablet Take 500 mcg by mouth. Once or twice/month diphenhydrAMINE HCl (BENADRYL ALLERGY PO) Take by mouth. Ferrous Sulfate (IRON PO) 3 times daily. furOSEmide 20 MG tablet daily. hydrocortisone 2.5 % Lotion Apply topically as needed. ipratropium-albuterol 0.5-2.5 (3) MG/3ML nebulizer solution ipratropium 0.5 mg- albuterol 3 mg (2.5 mg base)/3 mL nebulization soln metFORMIN 500 MG tablet 3 times daily. metoprolol succinate 25 MG tablet XL Take by mouth daily every morning. multivitamin tablet Take 1 tablet by mouth daily. nystatin-triamcinolone 145046-3.1 UNIT/GM-% Ointment as needed. acetaminophen 325 MG tablet Take 2 tablets by mouth every 4 hours as needed for Mild Pain. 50 tablet 1 aspirin EC [address] Take 1 table twice a day for 30days. This medication is for blood clot prevention. 60 tablet 0 docusate 100 MG capsule Take 1 capsule by mouth 2 times daily. 60 capsule 0 hydroCODone-acetaminophen 5-325 MG tablet Take 1-2 tablets by mouth every 6 hours as needed for Severe Pain for up to 7 days. Do not take over 4000mg acetaminophen daily. 10 tablet 0 omeprazole [address] capsule Take 1 capsule by mouth daily. 30 capsule 0 ondansetron 4 MG tablet Take 1 tablet by mouth every 8 hours as needed for Nausea. 6 tablet 0 traMADol 50 MG tablet 1-2 tabs po q 6 hr PRN pain 20 tablet 0 fluticasone 50 MCG/ACT Suspension nasal spray fluticasone propionate 50 mcg/actuation nasal spray,suspension No facility-administered medications prior to visit. Current Outpatient Medications: albuterol 108 (90 Base) MCG/ACT Aero Soln inhaler, as needed., Disp: , Rfl: alendronate 70 MG tablet, every 7 days. , Disp: , Rfl: aspirin 81 MG Chew Tab chewable tablet, Chew 81 mg daily., Disp: , Rfl: atorvastatin 40 MG tablet, every evening. , Disp: , Rfl: Calcium Citrate 1040 MG tablet, Take 600 mg by mouth daily., Disp: , Rfl: Cholecalciferol 125 MCG (5000 UT) per tablet, At bedtime., Disp: , Rfl: Colchicine 0.6 MG capsule, as needed. , Disp: , Rfl: cyanocobalamin 1000 MCG tablet, Take 500 mcg by mouth. Once or twice/month, Disp: , Rfl: diphenhydrAMINE HCl (BENADRYL ALLERGY PO), Take by mouth., Disp: , Rfl: Ferrous Sulfate (IRON PO), 3 times daily., Disp: , Rfl: furOSEmide 20 MG tablet, daily. , Disp: , Rfl: hydrocortisone 2.5 % Lotion, Apply topically as needed. , Disp: , Rfl: ipratropium-albuterol 0.5-2.5 (3) MG/3ML nebulizer solution, ipratropium 0.5 mg- albuterol 3 mg (2.5mg base)/3 mL nebulization soln, Disp: , Rfl: metFORMIN 500 MG tablet, 3 times daily. , Disp: , Rfl: metoprolol succinate 25 MG tablet XL, Take by mouth daily every morning. , Disp: , Rfl: multivitamin tablet, Take 1 tablet by mouth daily., Disp: , Rfl: nystatin-triamcinolone 361986-3.1 UNIT/GM-% Ointment, as needed. , Disp: , Rfl: acetaminophen 325 MG tablet, Take 2 tablets by mouth every 4 hours as needed for Mild Pain., Disp: 50 tablet, Rfl: 1 aspirin EC [address], Take 1 table twice a day for 30days. This medication is for blood clot prevention., Disp: 60 tablet, Rfl: 0 docusate 100 MG capsule, Take 1 capsule by mouth 2 times daily., Disp: 60 capsule, Rfl: 0 hydroCODone-acetaminophen 5-325 MG tablet, Take 1-2 tablets by mouth every 6 hours as needed for Severe Pain for up to 7 days. Do not take over 4000mg acetaminophen daily., Disp: 10 tablet, Rfl: 0 omeprazole [address] capsule, Take 1 capsule by mouth daily., Disp: 30 capsule, Rfl: 0 ondansetron 4 MG tablet, Take 1 tablet by mouth every 8 hours as needed for Nausea., Disp: 6 tablet, Rfl: 0 traMADol 50 MG tablet, 1-2 tabs po q 6 hr PRN pain, Disp: 20 tablet, Rfl: 0 Allergies: She has No Known Allergies. * Jeyson Lew MD - 08/01/2022 10:30 AM EDT HPI: Siria is here today for evaluation of her operative hip. She is status post left total hip arthroplasty on 11/14/21. She suffered a fall on 05/10/21, went to the [facility] with reported unremarkable work up. She states she was doing great prior to the accident with occasional pain of 2/10. Since her fall, the pain radiates down to her foot and is a 10/10 daily. She also states she is not able to sleep on the left side without pain. She is here today for a peace of mind evaluation. PHYSICAL EXAM: The bilateral lower extremities were evaluated. The operative lower extremity is soft, nontender with full and supple motion of the hip. Increased tenderness over the greater trochanter and IT band. The contralateral extremity has full motion, normal stability, no tenderness. Bilateral lower extremities have normal neurovascular status. DIAGNOSTIC STUDIES/INTERPRETATION: Plain film radiographs reviewed. She has a left total hip arthroplasty in unchanged position and alignment. IMPRESSION: 1.) Stable status post left total hip arthroplasty in Nov, 2021. 2.) History of fall 2021. 3.) Degenerative lumbar disease. 4.) Symptomatic trochanteric bursitis and IT band tendonitis, left side. PLAN: I reviewed my findings with Siria. We discussed the diagnosis and treatment options together.We reviewed her radiographs and medical history together. We discussed her radicular symptoms likely related to known degenerative back but given the amount of tenderness with palpation over the trochanter and IT band tendon, I suspect this is the primary source of discomfort. At this time, we willstart with formal PT for ITBS. If her symptoms don't improve, then we will consider ordering MRI ofthe left hip to evaluate the integrity of the abductor muscles as well as consider further back workup with Dr. Rosas. She is also requesting a referral to our hand specialist for trigger finger, I will make the referral to Dr. Marcus Calles. All questions were answered. She has no further questions. I have reviewed the findings of my clinical staff below and agree with their assessment. Ortho Nurse - Established Patient Intake Room#: 3 Left TILA 11-14-21, had a fall on 05-10-22 went to [facility] and was told everything looked good and was given pain medication which she is done with. Before fall she states she was doing great with occasional pain of 2, since her fall the pain radiates down to her foot and is a 10 Date: 08/01/2022 11:26 AM Patient: Siria Petty MR#: [id number] : 1950 Age: 72 y.o. Referring Physician: Jeyson Lew MD Insurance: Payor: MEDICARE / Plan: MEDICARE A AND B / Product Type: *No Product type* / Chief Complaint Patient presents with Left Hip - Pain Visit Vitals Ht 1.575 m (5' 2 ) Wt 85.7 kg (189 lb) BMI 34.57 kg/m Pain Presence of Pain: complains of pain/discomfort Pain Location: hip, left Select Pain Scale: DVPRS (Defense and Veterans Pain Rating Scale) (Adult- Cognitively Intact) Pain Location: hip, left Select Pain Scale: DVPRS (Defense and Veterans Pain Rating Scale) (Adult- Cognitively Intact) Recent Labs No results found for: CRP No results found for: SEDRATE Lab Results Component Value Date WBC 4.2 08/31/2021 HGB 11.2 (L) 11/14/2021 HCT 34.9 (L) 11/14/2021 PLATELET 126 (L) 08/31/2021 MCV 82.4 08/31/2021 History Past Medical History: Diagnosis Date Asthma COPD (chronic obstructive pulmonary disease) Diabetes mellitus Essential hypertension, benign Hyperlipidemia Past Surgical History: Procedure Laterality Date ARTHROPLASTY HIP TOTAL Left 11/14/2021 Laterality: Left; Surgeon: Jeyson Lew MD; Location: [facility] CHOLECYSTECTOMY GASTRIC BYPASS HERNIA REPAIR umbilical x2 LITHOTRIPSY RELEASE CARPAL TUNNEL Right Family History: Her family history is not on file. Social History: Her reports that she has quit smoking. She has never used smokeless tobacco. She reports that she does not drink alcohol and does not use drugs. Outpatient Medications Prior to Visit Medication Sig Dispense Refill albuterol 108 (90 Base) MCG/ACT Aero Soln inhaler as needed. alendronate 70 MG tablet every 7 days. aspirin 81 MG Chew Tab chewable tablet Chew 81 mg daily. atorvastatin 40 MG tablet every evening. Calcium Citrate 1040 MG tablet Take 600 mg by mouth daily. Cholecalciferol 125 MCG (5000 UT) per tablet At bedtime. Colchicine 0.6 MG capsule as needed. cyanocobalamin 1000 MCG tablet Take 500 mcg by mouth. Once or twice/month diphenhydrAMINE HCl (BENADRYL ALLERGY PO) Take by mouth. Ferrous Sulfate (IRON PO) 3 times daily. furOSEmide 20 MG tablet daily. hydrocortisone 2.5 % Lotion Apply topically as needed. ipratropium-albuterol 0.5-2.5 (3) MG/3ML nebulizer solution ipratropium 0.5 mg- albuterol 3 mg (2.5 mg base)/3 mL nebulization soln metFORMIN 500 MG tablet 3 times daily. metoprolol succinate 25 MG tablet XL Take by mouth daily every morning. multivitamin tablet Take 1 tablet by mouth daily. nystatin-triamcinolone 630225-4.1 UNIT/GM-% Ointment as needed. acetaminophen 325 MG tablet Take 2 tablets by mouth every 4 hours as needed for Mild Pain. 50 tablet 1 aspirin EC [address] Take 1 table twice a day for 30days. This medication is for blood clot prevention. 60 tablet 0 docusate 100 MG capsule Take 1 capsule by mouth 2 times daily. 60 capsule 0 hydroCODone-acetaminophen 5-325 MG tablet Take 1-2 tablets by mouth every 6 hours as needed for Severe Pain for up to 7 days. Do not take over 4000mg acetaminophen daily. 10 tablet 0 omeprazole [address] capsule Take 1 capsule by mouth daily. 30 capsule 0 ondansetron 4 MG tablet Take 1 tablet by mouth every 8 hours as needed for Nausea. 6 tablet 0 traMADol 50 MG tablet 1-2 tabs po q 6 hr PRN pain 20 tablet 0 fluticasone 50 MCG/ACT Suspension nasal spray fluticasone propionate 50 mcg/actuation nasal spray,suspension No facility-administered medications prior to visit. Current Outpatient Medications: albuterol 108 (90 Base) MCG/ACT Aero Soln inhaler, as needed., Disp: , Rfl: alendronate 70 MG tablet, every 7 days. , Disp: , Rfl: aspirin 81 MG Chew Tab chewable tablet, Chew 81 mg daily., Disp: , Rfl: atorvastatin 40 MG tablet, every evening. , Disp: , Rfl: Calcium Citrate 1040 MG tablet, Take 600 mg by mouth daily., Disp: , Rfl: Cholecalciferol 125 MCG (5000 UT) per tablet, At bedtime., Disp: , Rfl: Colchicine 0.6 MG capsule, as needed. , Disp: , Rfl: cyanocobalamin 1000 MCG tablet, Take 500 mcg by mouth. Once or twice/month, Disp: , Rfl: diphenhydrAMINE HCl (BENADRYL ALLERGY PO), Take by mouth., Disp: , Rfl: Ferrous Sulfate (IRON PO), 3 times daily., Disp: , Rfl: furOSEmide 20 MG tablet, daily. , Disp: , Rfl: hydrocortisone 2.5 % Lotion, Apply topically as needed. , Disp: , Rfl: ipratropium-albuterol 0.5-2.5 (3) MG/3ML nebulizer solution, ipratropium 0.5 mg- albuterol 3 mg (2.5mg base)/3 mL nebulization soln, Disp: , Rfl: metFORMIN 500 MG tablet, 3 times daily. , Disp: , Rfl: metoprolol succinate 25 MG tablet XL, Take by mouth daily every morning. , Disp: , Rfl: multivitamin tablet, Take 1 tablet by mouth daily., Disp: , Rfl: nystatin-triamcinolone 360958-7.1 UNIT/GM-% Ointment, as needed. , Disp: , Rfl: acetaminophen 325 MG tablet, Take 2 tablets by mouth every 4 hours as needed for Mild Pain., Disp: 50 tablet, Rfl: 1 aspirin EC [address], Take 1 table twice a day for 30days. This medication is for blood clot prevention., Disp: 60 tablet, Rfl: 0 docusate 100 MG capsule, Take 1 capsule by mouth 2 times daily., Disp: 60 capsule, Rfl: 0 hydroCODone-acetaminophen 5-325 MG tablet, Take 1-2 tablets by mouth every 6 hours as needed for Severe Pain for up to 7 days. Do not take over 4000mg acetaminophen daily., Disp: 10 tablet, Rfl: 0 omeprazole [address] capsule, Take 1 capsule by mouth daily., Disp: 30 capsule, Rfl: 0 ondansetron 4 MG tablet, Take 1 tablet by mouth every 8 hours as needed for Nausea., Disp: 6 tablet, Rfl: 0 traMADol 50 MG tablet, 1-2 tabs po q 6 hr PRN pain, Disp: 20 tablet, Rfl: 0 Allergies: She has No Known Allergies. documented in this [facility]05-06-2022 History of Present illness Narrative* Jaswant Baldwin LPN - 04/06/2022 9:10 AM EDT Ortho Nurse - Established Patient Intake Room#: 1 4+ month left TILA A/L, some pain of 2, doing great Date: 04/06/2022 9:49 AM Patient: Siira Petty MR#: [id number] : 1950 Age: 71 y.o. Referring Physician: Self, Self Insurance: Payor: MEDICARE / Plan: MEDICARE A AND B / Product Type: *No Product type* / Chief Complaint Patient presents with Left Hip - Post Op Visit Visit Vitals Ht 1.575 m (5' 2 ) Wt 85.7 kg (189 lb) BMI 34.57 kg/m Pain Presence of Pain: complains of pain/discomfort Pain Location: hip, left Select Pain Scale: DVPRS (Defense and Veterans Pain Rating Scale) (Adult- Cognitively Intact) Pain Location: hip, left Select Pain Scale: DVPRS (Defense and Veterans Pain Rating Scale) (Adult- Cognitively Intact) Recent Labs No results found for: CRP No results found for: SEDRATE Lab Results Component Value Date WBC 4.2 08/31/2021 HGB 11.2 (L) 11/14/2021 HCT 34.9 (L) 11/14/2021 PLATELET 126 (L) 08/31/2021 MCV 82.4 08/31/2021 History Past Medical History: Diagnosis Date Asthma COPD (chronic obstructive pulmonary disease) Diabetes mellitus Essential hypertension, benign Hyperlipidemia Past Surgical History: Procedure Laterality Date ARTHROPLASTY HIP TOTAL Left 11/14/2021 Laterality: Left; Surgeon: Jeyson Lew MD; Location: [facility] CHOLECYSTECTOMY GASTRIC BYPASS HERNIA REPAIR umbilical x2 LITHOTRIPSY RELEASE CARPAL TUNNEL Right Family History: Her family history is not on file. Social History: Her reports that she has quit smoking. She has never used smokeless tobacco. She reports that she does not drink alcohol and does not use drugs. Outpatient Medications Prior to Visit Medication Sig Dispense Refill albuterol 108 (90 Base) MCG/ACT Aero Soln inhaler as needed. alendronate 70 MG tablet every 7 days. aspirin 81 MG Chew Tab chewable tablet Chew 81 mg daily. atorvastatin 40 MG tablet every evening. Calcium Citrate 1040 MG tablet Take 600 mg by mouth daily. Cholecalciferol 125 MCG (5000 UT) per tablet At bedtime. Colchicine 0.6 MG capsule as needed. cyanocobalamin 1000 MCG tablet Take 500 mcg by mouth. Once or twice/month Ferrous Sulfate (IRON PO) 3 times daily. fluticasone 50 MCG/ACT Suspension nasal spray fluticasone propionate 50 mcg/actuation nasal spray,suspension furOSEmide 20 MG tablet daily. hydrocortisone 2.5 % Lotion Apply topically as needed. ipratropium-albuterol 0.5-2.5 (3) MG/3ML nebulizer solution ipratropium 0.5 mg- albuterol 3 mg (2.5 mg base)/3 mL nebulization soln metFORMIN 500 MG tablet 3 times daily. metoprolol succinate 25 MG tablet XL Take by mouth daily every morning. multivitamin tablet Take 1 tablet by mouth daily. nystatin-triamcinolone 521884-6.1 UNIT/GM-% Ointment as needed. acetaminophen 325 MG tablet Take 2 tablets by mouth every 4 hours as needed for Mild Pain. 50 tablet 1 aspirin EC [address] Take 1 table twice a day for 30days. This medication is for blood clot prevention. 60 tablet 0 docusate 100 MG capsule Take 1 capsule by mouth 2 times daily. 60 capsule 0 hydroCODone-acetaminophen 5-325 MG tablet Take 1-2 tablets by mouth every 6 hours as needed for Severe Pain for up to 7 days. Do not take over 4000mg acetaminophen daily. 10 tablet 0 omeprazole [address] capsule Take 1 capsule by mouth daily. 30 capsule 0 ondansetron 4 MG tablet Take 1 tablet by mouth every 8 hours as needed for Nausea. 6 tablet 0 traMADol 50 MG tablet 1-2 tabs po q 6 hr PRN pain 20 tablet 0 No facility-administered medications prior to visit. Current Outpatient Medications: albuterol 108 (90 Base) MCG/ACT Aero Soln inhaler, as needed., Disp: , Rfl: alendronate 70 MG tablet, every 7 days. , Disp: , Rfl: aspirin 81 MG Chew Tab chewable tablet, Chew 81 mg daily., Disp: , Rfl: atorvastatin 40 MG tablet, every evening. , Disp: , Rfl: Calcium Citrate 1040 MG tablet, Take 600 mg by mouth daily., Disp: , Rfl: Cholecalciferol 125 MCG (5000 UT) per tablet, At bedtime., Disp: , Rfl: Colchicine 0.6 MG capsule, as needed. , Disp: , Rfl: cyanocobalamin 1000 MCG tablet, Take 500 mcg by mouth. Once or twice/month, Disp: , Rfl: Ferrous Sulfate (IRON PO), 3 times daily., Disp: , Rfl: fluticasone 50 MCG/ACT Suspension nasal spray, fluticasone propionate 50 mcg/actuation nasal spray,suspension, Disp: , Rfl: furOSEmide 20 MG tablet, daily. , Disp: , Rfl: hydrocortisone 2.5 % Lotion, Apply topically as needed. , Disp: , Rfl: ipratropium-albuterol 0.5-2.5 (3) MG/3ML nebulizer solution, ipratropium 0.5 mg- albuterol 3 mg (2.5mg base)/3 mL nebulization soln, Disp: , Rfl: metFORMIN 500 MG tablet, 3 times daily. , Disp: , Rfl: metoprolol succinate 25 MG tablet XL, Take by mouth daily every morning. , Disp: , Rfl: multivitamin tablet, Take 1 tablet by mouth daily., Disp: , Rfl: nystatin-triamcinolone 173809-5.1 UNIT/GM-% Ointment, as needed. , Disp: , Rfl: acetaminophen 325 MG tablet, Take 2 tablets by mouth every 4 hours as needed for Mild Pain., Disp: 50 tablet, Rfl: 1 aspirin EC [address], Take 1 table twice a day for 30days. This medication is for blood clot prevention., Disp: 60 tablet, Rfl: 0 docusate 100 MG capsule, Take 1 capsule by mouth 2 times daily., Disp: 60 capsule, Rfl: 0 hydroCODone-acetaminophen 5-325 MG tablet, Take 1-2 tablets by mouth every 6 hours as needed for Severe Pain for up to 7 days. Do not take over 4000mg acetaminophen daily., Disp: 10 tablet, Rfl: 0 omeprazole [address] capsule, Take 1 capsule by mouth daily., Disp: 30 capsule, Rfl: 0 ondansetron 4 MG tablet, Take 1 tablet by mouth every 8 hours as needed for Nausea., Disp: 6 tablet, Rfl: 0 traMADol 50 MG tablet, 1-2 tabs po q 6 hr PRN pain, Disp: 20 tablet, Rfl: 0 Allergies: She has No Known Allergies. * Jeyson Lew MD - 04/06/2022 9:10 AM EDT HPI: Siria is here today for evaluation of her operative hip. She is status post left total hip arthroplasty. She is about 4 months out and reports that she is doing well and is pleased with the outcome of the intervention. The hip feels better now than it did before, and she is not having any new symptoms with it. Her pain is a 2/10 upon exam today. She denies additional questions or concerns atthis time. PHYSICAL EXAM: The bilateral lower extremities were evaluated. The operative lower extremity is soft, nontender with full and supple motion of the hip. No pain, no impingement. No instability. The contralateral extremity has full motion, normal stability, no tenderness. Bilateral lower extremities have normal neurovascular status. DIAGNOSTIC STUDIES/INTERPRETATION: Plain film radiographs reviewed. She has a left total hip arthroplasty in good position and alignment. No evidence of prosthetic implant loosening or migration. IMPRESSION: Stable status post left total hip arthroplasty, doing well. PLAN: I reviewed my findings with Siria. Overall, I am pleased with the outcome of intervention. She is making an excellent recovery. We discussed the stages of healing along with what symptoms she can expect at each stage. She understands she is only at the 40-50% rola of total recovery. She understands that she will experience improvements every 2-3 weeks at this stage. We then discussed the bri efits of performing a variety of exercises at home or the local gym. She is in agreement and will continue this in a slow, steady manner. I expect continued improvement in strength and mobility moving forward. I recommend followup at one year postop for repeat clinical and radiographic examination or sooner if any new symptoms develop. She will call with any questions or concerns in the meantime. I have reviewed the findings of my clinical staff below and agree with their assessment. Ortho Nurse - Established Patient Intake Room#: 1 4+ month left TILA A/L, some pain of 2, doing great Date: 04/06/2022 9:49 AM Patient: Siria Petty MR#: [id number] : 1950 Age: 71 y.o. Referring Physician: Self, Self Insurance: Payor: MEDICARE / Plan: MEDICARE A AND B / Product Type: *No Product type* / Chief Complaint Patient presents with Left Hip - Post Op Visit Visit Vitals Ht 1.575 m (5' 2 ) Wt 85.7 kg (189 lb) BMI 34.57 kg/m Pain Presence of Pain: complains of pain/discomfort Pain Location: hip, left Select Pain Scale: DVPRS (Defense and Veterans Pain Rating Scale) (Adult- Cognitively Intact) Pain Location: hip, left Select Pain Scale: DVPRS (Defense and Veterans Pain Rating Scale) (Adult- Cognitively Intact) Recent Labs No results found for: CRP No results found for: SEDRATE Lab Results Component Value Date WBC 4.2 08/31/2021 HGB 11.2 (L) 11/14/2021 HCT 34.9 (L) 11/14/2021 PLATELET 126 (L) 08/31/2021 MCV 82.4 08/31/2021 History Past Medical History: Diagnosis Date Asthma COPD (chronic obstructive pulmonary disease) Diabetes mellitus Essential hypertension, benign Hyperlipidemia Past Surgical History: Procedure Laterality Date ARTHROPLASTY HIP TOTAL Left 11/14/2021 Laterality: Left; Surgeon: Jeyson Lew MD; Location: [facility] CHOLECYSTECTOMY GASTRIC BYPASS HERNIA REPAIR umbilical x2 LITHOTRIPSY RELEASE CARPAL TUNNEL Right Family History: Her family history is not on file. Social History: Her reports that she has quit smoking. She has never used smokeless tobacco. She reports that she does not drink alcohol and does not use drugs. Outpatient Medications Prior to Visit Medication Sig Dispense Refill albuterol 108 (90 Base) MCG/ACT Aero Soln inhaler as needed. alendronate 70 MG tablet every 7 days. aspirin 81 MG Chew Tab chewable tablet Chew 81 mg daily. atorvastatin 40 MG tablet every evening. Calcium Citrate 1040 MG tablet Take 600 mg by mouth daily. Cholecalciferol 125 MCG (5000 UT) per tablet At bedtime. Colchicine 0.6 MG capsule as needed. cyanocobalamin 1000 MCG tablet Take 500 mcg by mouth. Once or twice/month Ferrous Sulfate (IRON PO) 3 times daily. fluticasone 50 MCG/ACT Suspension nasal spray fluticasone propionate 50 mcg/actuation nasal spray,suspension furOSEmide 20 MG tablet daily. hydrocortisone 2.5 % Lotion Apply topically as needed. ipratropium-albuterol 0.5-2.5 (3) MG/3ML nebulizer solution ipratropium 0.5 mg- albuterol 3 mg (2.5 mg base)/3 mL nebulization soln metFORMIN 500 MG tablet 3 times daily. metoprolol succinate 25 MG tablet XL Take by mouth daily every morning. multivitamin tablet Take 1 tablet by mouth daily. nystatin-triamcinolone 329600-6.1 UNIT/GM-% Ointment as needed. acetaminophen 325 MG tablet Take 2 tablets by mouth every 4 hours as needed for Mild Pain. 50 tablet 1 aspirin EC [address] Take 1 table twice a day for 30days. This medication is for blood clot prevention. 60 tablet 0 docusate 100 MG capsule Take 1 capsule by mouth 2 times daily. 60 capsule 0 hydroCODone-acetaminophen 5-325 MG tablet Take 1-2 tablets by mouth every 6 hours as needed for Severe Pain for up to 7 days. Do not take over 4000mg acetaminophen daily. 10 tablet 0 omeprazole [address] capsule Take 1 capsule by mouth daily. 30 capsule 0 ondansetron 4 MG tablet Take 1 tablet by mouth every 8 hours as needed for Nausea. 6 tablet 0 traMADol 50 MG tablet 1-2 tabs po q 6 hr PRN pain 20 tablet 0 No facility-administered medications prior to visit. Current Outpatient Medications: albuterol 108 (90 Base) MCG/ACT Aero Soln inhaler, as needed., Disp: , Rfl: alendronate 70 MG tablet, every 7 days. , Disp: , Rfl: aspirin 81 MG Chew Tab chewable tablet, Chew 81 mg daily., Disp: , Rfl: atorvastatin 40 MG tablet, every evening. , Disp: , Rfl: Calcium Citrate 1040 MG tablet, Take 600 mg by mouth daily., Disp: , Rfl: Cholecalciferol 125 MCG (5000 UT) per tablet, At bedtime., Disp: , Rfl: Colchicine 0.6 MG capsule, as needed. , Disp: , Rfl: cyanocobalamin 1000 MCG tablet, Take 500 mcg by mouth. Once or twice/month, Disp: , Rfl: Ferrous Sulfate (IRON PO), 3 times daily., Disp: , Rfl: fluticasone 50 MCG/ACT Suspension nasal spray, fluticasone propionate 50 mcg/actuation nasal spray,suspension, Disp: , Rfl: furOSEmide 20 MG tablet, daily. , Disp: , Rfl: hydrocortisone 2.5 % Lotion, Apply topically as needed. , Disp: , Rfl: ipratropium-albuterol 0.5-2.5 (3) MG/3ML nebulizer solution, ipratropium 0.5 mg- albuterol 3 mg (2.5mg base)/3 mL nebulization soln, Disp: , Rfl: metFORMIN 500 MG tablet, 3 times daily. , Disp: , Rfl: metoprolol succinate 25 MG tablet XL, Take by mouth daily every morning. , Disp: , Rfl: multivitamin tablet, Take 1 tablet by mouth daily., Disp: , Rfl: nystatin-triamcinolone 179711-2.1 UNIT/GM-% Ointment, as needed. , Disp: , Rfl: acetaminophen 325 MG tablet, Take 2 tablets by mouth every 4 hours as needed for Mild Pain., Disp: 50 tablet, Rfl: 1 aspirin EC [address], Take 1 table twice a day for 30days. This medication is for blood clot prevention., Disp: 60 tablet, Rfl: 0 docusate 100 MG capsule, Take 1 capsule by mouth 2 times daily., Disp: 60 capsule, Rfl: 0 hydroCODone-acetaminophen 5-325 MG tablet, Take 1-2 tablets by mouth every 6 hours as needed for Severe Pain for up to 7 days. Do not take over 4000mg acetaminophen daily., Disp: 10 tablet, Rfl: 0 omeprazole [address] capsule, Take 1 capsule by mouth daily., Disp: 30 capsule, Rfl: 0 ondansetron 4 MG tablet, Take 1 tablet by mouth every 8 hours as needed for Nausea., Disp: 6 tablet, Rfl: 0 traMADol 50 MG tablet, 1-2 tabs po q 6 hr PRN pain, Disp: 20 tablet, Rfl: 0 Allergies: She has No Known Allergies. documented in this [facility]02-09-2022 History of Present illness Narrative* Cheryl Sahni APRN-[facility] - 01/10/2022 2:20 PM EST SUBJECTIVE: Siria is an established patient of mine. Here today for followup. She is now 7 weeks out from left total hip arthroplasty. Reports overall she is doing well. She has a little bit of pain once in a while if she does too much. No problems with the wound. No fevers or chills. No changes constitutionally. PHYSICAL EXAMINATION: GENERAL: She is alert, oriented, and age-appropriate female, in no acute distress. Pleasant and cooperative. EXTREMITIES: Left lower extremity has thigh and calf soft, nontender. Normal neurovascular status. Negative Homans sign. Full and supple range of motion of the hip without pain or impingement. Well-healed hip incision without any redness, drainage, dehiscence, discharge, signs or symptoms of infection. Right lower extremity has thigh and calf soft, nontender. Normal neurovascular status. Negative Homans sign. DIAGNOSTIC STUDY INTERPRETATION: Imaging reviewed today demonstrate stable position and alignment of the total hip arthroplasty, it is in unchanged position and alignment when compared to previous imaging. ASSESSMENT: Seven weeks status post total hip arthroplasty, doing well. PLAN: I reviewed my findings with Siria. Overall, I could not be happy with the outcomes of the operation. I expect continued improvements in strength and mobility moving forward. All of her questions and concerns were addressed today to her satisfaction. She will follow up with Dr. Lew at routinely scheduled 4-month appointment or sooner as necessary. (DOC:[id number]) I have reviewed the findings of the clinical office support specialist and agree with their assessment. EDY Parra No notes on file documented in this [facility]01-06-2022 History of Present illness Narrative* EDY Parra - 12/07/2021 2:40 PM EST MRS Siria Petty is 3 weeks s/p left Anterolateral total hip arthroplasty. She is progressing nicely in her recovery. She is TDWB with AL restrictions. She reports 0 out of 10 pain. She is using tylenol for pain control and asa for DVT prophylaxis along with TONIA hose. Physical Exam: Today on exam incision is healing nicely with global hip swelling, no erythema, drainage or evidence of dehiscence. Calves are soft and nontender with negative Homans sign. ROM is fulland supple with no pain or impingement. Distal neurovascular exam is intact. Visit Vitals Temp 98.2 F (36.8 C) (Temporal) Ht 1.575 m (5' 2 ) Wt 85.7 kg (189 lb) BMI 34.57 kg/m Diagnostic study/interpretation: Plain films were obtained today and reveal a cementless total hip arthroplasty in good position and alignment without evidence of implant loosening or migration as compared to the immediate postop film. Assessment/Plan: 3 week postop TILA via anterolateral approach. Continue with DVT prophylaxis as prescribed. Dental prophylaxis was given. Per the previously prescribed postoperative plan. I will continue touchdown weightbearing and follow-up with her in 3 weeks. She may discontinue use of the abductor pillow. Follow up 6 weeks postop unless an earlier need arises. All questions and concerrns were addressed at this visit. All pertinant portions of the clinical office support specialist documentation was reviewed. EDY Parra I have reviewed the findings of the clinical office support specialist and agree with their assessment. EDY Parra Ortho Nurse Established Patient Intake Room#: 4 Date: 12/07/2021 2:25 PM Patient: Siria Petty MR#: [id number] : 1950 Age: 71 y.o. 3wk S/P L TILA Pt states she doing good but sometimes she goes to get up and she says it feels like it sticks or locks and has to relax and denies any pain at this time.0/10 on the pain scale. Pt was wearing her tonia hose and using a walker at the time of visit. Referring Physician: Cheryl Sahni APRN-CNP Insurance: Payor: MEDICARE / Plan: MEDICARE A AND B / Product Type: *No Product type* / Chief Complaint Patient presents with Left Hip - Post Op Visit Visit Vitals Temp 98.2 F (36.8 C) (Temporal) Ht 1.575 m (5' 2 ) Wt 85.7 kg (189 lb) BMI 34.57 kg/m Pain Recent Labs No results found for: CRP No results found for: SEDRATE Lab Results Component Value Date WBC 4.2 08/31/2021 HGB 11.2 (L) 11/14/2021 HCT 34.9 (L) 11/14/2021 PLATELET 126 (L) 08/31/2021 MCV 82.4 08/31/2021 History Past Medical History: Diagnosis Date Asthma COPD (chronic obstructive pulmonary disease) Diabetes mellitus Essential hypertension, benign Hyperlipidemia Past Surgical History: Procedure Laterality Date ARTHROPLASTY HIP TOTAL Left 11/14/2021 Laterality: Left; Surgeon: Jeyson Lew MD; Location: [facility] CHOLECYSTECTOMY GASTRIC BYPASS HERNIA REPAIR umbilical x2 LITHOTRIPSY RELEASE CARPAL TUNNEL Right Family History: Her family history is not on file. Social History: Her reports that she has quit smoking. She has never used smokeless tobacco. She reports that she does not drink alcohol and does not use drugs. Outpatient Medications Prior to Visit Medication Sig Dispense Refill acetaminophen 325 MG tablet Take 2 tablets by mouth every 4 hours as needed for Mild Pain. 50 tablet 1 albuterol (ProAir HFA) 108 (90 Base) MCG/ACT Aero Soln inhaler as needed. alendronate 70 MG tablet every 7 days. aspirin 81 MG Chew Tab chewable tablet Chew 81 mg daily. aspirin EC [address] Take 1 table twice a day for 30days. This medication is for blood clot prevention. 60 tablet 0 atorvastatin 40 MG tablet every evening. Calcium Citrate 1040 MG tablet Take 600 mg by mouth daily. Cholecalciferol 125 MCG (5000 UT) per tablet At bedtime. Colchicine 0.6 MG capsule as needed. cyanocobalamin 1000 MCG tablet Take 500 mcg by mouth. Once or twice/month docusate 100 MG capsule Take 1 capsule by mouth 2 times daily. 60 capsule 0 Ferrous Sulfate (IRON PO) 3 times daily. fluticasone 50 MCG/ACT Suspension nasal spray fluticasone propionate 50 mcg/actuation nasal spray,suspension furOSEmide 20 MG tablet daily. hydrocortisone 2.5 % Lotion Apply topically as needed. ipratropium-albuterol 0.5-2.5 (3) MG/3ML nebulizer solution ipratropium 0.5 mg- albuterol 3 mg (2.5 mg base)/3 mL nebulization soln metFORMIN 500 MG tablet 3 times daily. metoprolol succinate 25 MG tablet XL Take by mouth daily every morning. multivitamin tablet Take 1 tablet by mouth daily. nystatin-triamcinolone 597774-6.1 UNIT/GM-% Ointment as needed. omeprazole [address] capsule Take 1 capsule by mouth daily. 30 capsule 0 ondansetron 4 MG tablet Take 1 tablet by mouth every 8 hours as needed for Nausea. 6 tablet 0 hydroCODone-acetaminophen 5-325 MG tablet Take 1-2 tablets by mouth every 6 hours as needed for Severe Pain for up to 7 days. Do not take over 4000mg acetaminophen daily. 10 tablet 0 traMADol 50 MG tablet 1-2 tabs po q 6 hr PRN pain 20 tablet 0 No facility-administered medications prior to visit. Current Outpatient Medications: acetaminophen 325 MG tablet, Take 2 tablets by mouth every 4 hours as needed for Mild Pain., Disp: 50 tablet, Rfl: 1 albuterol (ProAir HFA) 108 (90 Base) MCG/ACT Aero Soln inhaler, as needed., Disp: , Rfl: alendronate 70 MG tablet, every 7 days. , Disp: , Rfl: aspirin 81 MG Chew Tab chewable tablet, Chew 81 mg daily., Disp: , Rfl: aspirin EC [address], Take 1 table twice a day for 30days. This medication is for blood clot prevention., Disp: 60 tablet, Rfl: 0 atorvastatin 40 MG tablet, every evening. , Disp: , Rfl: Calcium Citrate 1040 MG tablet, Take 600 mg by mouth daily., Disp: , Rfl: Cholecalciferol 125 MCG (5000 UT) per tablet, At bedtime., Disp: , Rfl: Colchicine 0.6 MG capsule, as needed. , Disp: , Rfl: cyanocobalamin 1000 MCG tablet, Take 500 mcg by mouth. Once or twice/month, Disp: , Rfl: docusate 100 MG capsule, Take 1 capsule by mouth 2 times daily., Disp: 60 capsule, Rfl: 0 Ferrous Sulfate (IRON PO), 3 times daily., Disp: , Rfl: fluticasone 50 MCG/ACT Suspension nasal spray, fluticasone propionate 50 mcg/actuation nasal spray,suspension, Disp: , Rfl: furOSEmide 20 MG tablet, daily. , Disp: , Rfl: hydrocortisone 2.5 % Lotion, Apply topically as needed. , Disp: , Rfl: ipratropium-albuterol 0.5-2.5 (3) MG/3ML nebulizer solution, ipratropium 0.5 mg- albuterol 3 mg (2.5mg base)/3 mL nebulization soln, Disp: , Rfl: metFORMIN 500 MG tablet, 3 times daily. , Disp: , Rfl: metoprolol succinate 25 MG tablet XL, Take by mouth daily every morning. , Disp: , Rfl: multivitamin tablet, Take 1 tablet by mouth daily., Disp: , Rfl: nystatin-triamcinolone 768864-5.1 UNIT/GM-% Ointment, as needed. , Disp: , Rfl: omeprazole [address] capsule, Take 1 capsule by mouth daily., Disp: 30 capsule, Rfl: 0 ondansetron 4 MG tablet, Take 1 tablet by mouth every 8 hours as needed for Nausea., Disp: 6 tablet, Rfl: 0 hydroCODone-acetaminophen 5-325 MG tablet, Take 1-2 tablets by mouth every 6 hours as needed for Severe Pain for up to 7 days. Do not take over 4000mg acetaminophen daily., Disp: 10 tablet, Rfl: 0 traMADol 50 MG tablet, 1-2 tabs po q 6 hr PRN pain, Disp: 20 tablet, Rfl: 0 Allergies: She has No Known Allergies. * Chrystal Small - 12/07/2021 2:40 PM EST Ortho Nurse Established Patient Intake Room#: 4 Date: 12/07/2021 2:25 PM Patient: Siria Petty MR#: [id number] : 1950 Age: 71 y.o. 3wk S/P L TILA Pt states she doing good but sometimes she goes to get up and she says it feels like it sticks or locks and has to relax and denies any pain at this time.0/10 on the pain scale. Pt was wearing her tonia hose and using a walker at the time of visit. Referring Physician: Cheryl Sahni APRN-CNP Insurance: Payor: MEDICARE / Plan: MEDICARE A AND B / Product Type: *No Product type* / Chief Complaint Patient presents with Left Hip - Post Op Visit Visit Vitals Temp 98.2 F (36.8 C) (Temporal) Ht 1.575 m (5' 2 ) Wt 85.7 kg (189 lb) BMI 34.57 kg/m Pain Recent Labs No results found for: CRP No results found for: SEDRATE Lab Results Component Value Date WBC 4.2 08/31/2021 HGB 11.2 (L) 11/14/2021 HCT 34.9 (L) 11/14/2021 PLATELET 126 (L) 08/31/2021 MCV 82.4 08/31/2021 History Past Medical History: Diagnosis Date Asthma COPD (chronic obstructive pulmonary disease) Diabetes mellitus Essential hypertension, benign Hyperlipidemia Past Surgical History: Procedure Laterality Date ARTHROPLASTY HIP TOTAL Left 11/14/2021 Laterality: Left; Surgeon: Jeyson Lew MD; Location: [facility] CHOLECYSTECTOMY GASTRIC BYPASS HERNIA REPAIR umbilical x2 LITHOTRIPSY RELEASE CARPAL TUNNEL Right Family History: Her family history is not on file. Social History: Her reports that she has quit smoking. She has never used smokeless tobacco. She reports that she does not drink alcohol and does not use drugs. Outpatient Medications Prior to Visit Medication Sig Dispense Refill acetaminophen 325 MG tablet Take 2 tablets by mouth every 4 hours as needed for Mild Pain. 50 tablet 1 albuterol (ProAir HFA) 108 (90 Base) MCG/ACT Aero Soln inhaler as needed. alendronate 70 MG tablet every 7 days. aspirin 81 MG Chew Tab chewable tablet Chew 81 mg daily. aspirin EC [address] Take 1 table twice a day for 30days. This medication is for blood clot prevention. 60 tablet 0 atorvastatin 40 MG tablet every evening. Calcium Citrate 1040 MG tablet Take 600 mg by mouth daily. Cholecalciferol 125 MCG (5000 UT) per tablet At bedtime. Colchicine 0.6 MG capsule as needed. cyanocobalamin 1000 MCG tablet Take 500 mcg by mouth. Once or twice/month docusate 100 MG capsule Take 1 capsule by mouth 2 times daily. 60 capsule 0 Ferrous Sulfate (IRON PO) 3 times daily. fluticasone 50 MCG/ACT Suspension nasal spray fluticasone propionate 50 mcg/actuation nasal spray,suspension furOSEmide 20 MG tablet daily. hydrocortisone 2.5 % Lotion Apply topically as needed. ipratropium-albuterol 0.5-2.5 (3) MG/3ML nebulizer solution ipratropium 0.5 mg- albuterol 3 mg (2.5 mg base)/3 mL nebulization soln metFORMIN 500 MG tablet 3 times daily. metoprolol succinate 25 MG tablet XL Take by mouth daily every morning. multivitamin tablet Take 1 tablet by mouth daily. nystatin-triamcinolone 033703-1.1 UNIT/GM-% Ointment as needed. omeprazole [address] capsule Take 1 capsule by mouth daily. 30 capsule 0 ondansetron 4 MG tablet Take 1 tablet by mouth every 8 hours as needed for Nausea. 6 tablet 0 hydroCODone-acetaminophen 5-325 MG tablet Take 1-2 tablets by mouth every 6 hours as needed for Severe Pain for up to 7 days. Do not take over 4000mg acetaminophen daily. 10 tablet 0 traMADol 50 MG tablet 1-2 tabs po q 6 hr PRN pain 20 tablet 0 No facility-administered medications prior to visit. Current Outpatient Medications: acetaminophen 325 MG tablet, Take 2 tablets by mouth every 4 hours as needed for Mild Pain., Disp: 50 tablet, Rfl: 1 albuterol (ProAir HFA) 108 (90 Base) MCG/ACT Aero Soln inhaler, as needed., Disp: , Rfl: alendronate 70 MG tablet, every 7 days. , Disp: , Rfl: aspirin 81 MG Chew Tab chewable tablet, Chew 81 mg daily., Disp: , Rfl: aspirin EC [address], Take 1 table twice a day for 30days. This medication is for blood clot prevention., Disp: 60 tablet, Rfl: 0 atorvastatin 40 MG tablet, every evening. , Disp: , Rfl: Calcium Citrate 1040 MG tablet, Take 600 mg by mouth daily., Disp: , Rfl: Cholecalciferol 125 MCG (5000 UT) per tablet, At bedtime., Disp: , Rfl: Colchicine 0.6 MG capsule, as needed. , Disp: , Rfl: cyanocobalamin 1000 MCG tablet, Take 500 mcg by mouth. Once or twice/month, Disp: , Rfl: docusate 100 MG capsule, Take 1 capsule by mouth 2 times daily., Disp: 60 capsule, Rfl: 0 Ferrous Sulfate (IRON PO), 3 times daily., Disp: , Rfl: fluticasone 50 MCG/ACT Suspension nasal spray, fluticasone propionate 50 mcg/actuation nasal spray,suspension, Disp: , Rfl: furOSEmide 20 MG tablet, daily. , Disp: , Rfl: hydrocortisone 2.5 % Lotion, Apply topically as needed. , Disp: , Rfl: ipratropium-albuterol 0.5-2.5 (3) MG/3ML nebulizer solution, ipratropium 0.5 mg- albuterol 3 mg (2.5mg base)/3 mL nebulization soln, Disp: , Rfl: metFORMIN 500 MG tablet, 3 times daily. , Disp: , Rfl: metoprolol succinate 25 MG tablet XL, Take by mouth daily every morning. , Disp: , Rfl: multivitamin tablet, Take 1 tablet by mouth daily., Disp: , Rfl: nystatin-triamcinolone 340624-5.1 UNIT/GM-% Ointment, as needed. , Disp: , Rfl: omeprazole [address] capsule, Take 1 capsule by mouth daily., Disp: 30 capsule, Rfl: 0 ondansetron 4 MG tablet, Take 1 tablet by mouth every 8 hours as needed for Nausea., Disp: 6 tablet, Rfl: 0 hydroCODone-acetaminophen 5-325 MG tablet, Take 1-2 tablets by mouth every 6 hours as needed for Severe Pain for up to 7 days. Do not take over 4000mg acetaminophen daily., Disp: 10 tablet, Rfl: 0 traMADol 50 MG tablet, 1-2 tabs po q 6 hr PRN pain, Disp: 20 tablet, Rfl: 0 Allergies: She has No Known Allergies. [facility]* Yadira Salas RN - 11/14/2021 7:00 PM EST Discharged via w/c in stable condition,denies further needs or concerns. * Yadira Salas RN - 11/14/2021 6:30 PM EST To PT ambulatory w/walker and gait belt ,gait slow and steady. Pt has been using IS on own w/volumes of 100-1500ml. Voided qs in BR * Yadira Salas RN - 11/14/2021 6:00 PM EST Discharge Instructions reviewed w/pt and spouse w/o further questions,waiting for last PT session. * Yadira Salas RN - 11/14/2021 4:30 PM EST Cheryl Maurice [facility] notified of Hgb Hct results,no further orders. * Yadira Salas RN - 11/14/2021 3:30 PM EST Took 50% of regular tray w/o nausea. * Nicole Laurent RN - 11/14/2021 12:47 PM EST Patient transferred to PACU via bed with this nurse and [employer] DRESSER. Bedside report given to ARTEMIO Quinones. * Nicole Laurent RN - 11/14/2021 11:36 AM EST OR room temp: 66.3 OR room humidity: 50 documented in this [facility]12-14-2021 History of Present illness Narrative* Trisha Shook, PT - 11/14/2021 6:59 PM EST 11/14/211814 Time In/Out Time In 1814 Time Out 1852 Total Visit Time 38 minutes Total Treatment Time 38 minutes PT Therapy Completed Yes Initial Evaluation/Screen Completed? yes Subjective RN Approved Intervention as tolerated Existing Precautions/Restrictions fall;hip;weight bearing (global hip prec., no active hip abd, TTWB on L LE) Subjective Reports Pt met seated in the recliner and was agreeable to PT session. Pt reporting 2/10pain in the L hip. Cognitive Status Examination Orientation Status (Cognition) oriented x 4 Level of Consciousness alert Able to Follow Commands (Communication) WFL Personal Safety and Judgment intact General Pain Documentation (Adult, OB, Peds) Presence of Pain complains of pain/discomfort Pain Location hip, left Pain Management Interventions ambulated Select Pain Scale (2/10 ) Objective Therapeutic Interventions Pt met seated in the recliner and was agreeable to PT session. Reviewed with pt that she is only to completed ankle pumps and quad sets for exercises. Hip precautions reviewed with pt requiring cueing to recall all precautions. Gait training performed with pt ambulating 50ft x2 trials using the FWW and CGA. Significant and constant cueing required for correct sequencing in order to maintain weight bearing. Pt instructed on stair training for correct sequencing and technique. Stair training performed with pt completing one step up x2 trials with CGA and verbal cues for correct sequencing. Discussed car transfer with pt completing simulated car transfer with Fabrice Cisse. Pt s educated on how to provide assistance to the pt when getting into and out of the car. Ptand pt s verbalizing understanding. Pt then left seated in the recliner. Transfer Skill: Sit To Stand, Rehab Eval [place] (Sit-Stand Transfers) contact guard Physical Assist/Nonphysical Assist: Sit/Stand 1 person assist Weight-Bearing Restrictions: Sit/Stand toe touch weight-bearing Assistive Device For Transfer: Sit/Stand 2 wheeled walker Gait Skills, PT Eval Level of [place]: Gait contact guard Physical Assist/Nonphysical Assist: Gait 1 person assist Weight-Bearing Restrictions: Gait toe touch weight-bearing Assistive Device For Transfer: Gait 2 wheeled walker Gait Distance 50 feet Gait Analysis, PT Eval Gait Pattern Used swing-to gait Stair Negotiation [place] Level: Stair Negotiation contact guard assist Physical Assist: Stair Negotiation (1 person) Weight-Bearing Restrictions: Stair Negotiation toe touch weight-bearing Assistive Device: Stair Negotiation 2 wheeled walker Number of stairs 2 Stair Railings no rail Clinical Impression PT Therapies Still to Complete 12 Today's Treatment Included gait training, stair training, transfer training and patient education Assessment Progress toward goals Pt progressing toward all goals. Plan Plan for next visit Pt planning to discharge from hospital following PT session. * Ashly Malik, OT - 11/14/2021 3:53 PM EST 11/14/21 1430 Time In/Out Time In 1430 Initial Evaluation/Screen Completed? yes General Information RN Approved Intervention as tolerated Admitting Diagnosis osteoarthritis of hip Surgical Procedure left TILA (anterior'lateral) with abductor repair Past Surgical History Past Surgical History: Procedure Laterality Date CHOLECYSTECTOMY GASTRIC BYPASS HERNIA REPAIR umbilical x2 LITHOTRIPSY RELEASE CARPAL TUNNEL Right Past Medical History Past Medical History: Diagnosis Date Asthma COPD (chronic obstructive pulmonary disease) Diabetes mellitus Essential hypertension, benign Hyperlipidemia Existing Precautions/Restrictions fall;hip;weight bearing (TTWB, global hip prec, no active hip abduction ) Previous Level of Function Bed Mobility/Transfers independent Bathing independent Upper Body Dressing independent Lower Body Dressing independent Grooming independent Toileting independent Eating independent Home Management Skills independent General Pain Documentation (Adult, OB, Peds) Presence of Pain complains of pain/discomfort Pain Location hip, left Pain Management Interventions cold application Select Pain Scale (3/10 ) Home Setting Residence Apartment Lives With spouse First floor setup bedroom;tub shower Number of Stairs to Enter Home 2 Number of Stairs Within Home 0 Equipment Available straight cane;wheeled walker Cognitive Status Examination Orientation Status (Cognition) oriented x 4 Level of Consciousness alert Able to Follow Commands (Communication) WFL Personal Safety and Judgment intact Sensory Examination Sensory Examination WFL Range of Motion (ROM) Range of Motion Examination bilateral upper extremity ROM was WFL Manual Muscle Testing (MMT) Dominant Hand left Bed Mobility Skill: Supine to Sit, Rehab Eval Level of [place]: Supine/Sit stand-by assist Physical Assist/Nonphysical Assist: Supine/Sit 1 person assist;verbal cues Transfer Skill: Sit to Stand, Rehab Eval Level of [place]: Sit/Stand contact guard Physical Assist/Nonphysical Assist: Sit/Stand 1 person assist Weight-Bearing Restrictions: Sit/Stand touch down weight-bearing Assistive Device for Transfer: Sit/Stand wheeled walker Upper Body Dressing Level of [place] independent Physical Assist/Nonphysical Assist set-up required Lower Body Dressing Level of [place] moderate assist (50% patients effort) Physical Assist/Nonphysical Assist 1 person assist (including TONIA hose) Assistive Device correctional security officer General Therapy Interventions Planned Therapy Interventions (OT Eval) ADL retraining;balance training;transfer training Clinical Impression Co-evaluation/co-treatment performed? Yes, combination of simultaneous billable and non-billable treatment Patient Instruction Pt instructed on LB dressing techniques utilizing correctional security officer to rodo underwear andshorts in sitting and standing with no LOB able to correct with walker for stability in standing. discuss with patient and spouse needing to have a raised toilet seat they are to call sister and borrow C. also instruct may have to sponge bathe until precautions are over due to sliding doors on tub/shower will follow up Rehab Potential (OT Eval) good, to achieve stated therapy goals Therapy Frequency 7 times a week Anticipated Equipment Needs at Discharge (OT Eval) bathing equipment;dressing equipment;raised toilet seat;tub bench;correctional security officer Today's Treatment Included Pt demonstrates moderate to good safety awareness during functional mobility and transfer training following TTWB, patient is somewhat sleepy however able to follow directions well Continue care plan yes Goals Goals For Discharge Pt will return home recommend home health Discussed risk / benefits with patient;patient's family Therapist Recommendations At Discharge Recommendations OT Services recommended at Discharge Plan Plan for next session continue with AE training for bathing, dressing, bathroom transfers and hygiene training Therapist Information License # [id number] 1. Pt will complete LB dressing min assist utilizing AE 2. Pt will complete sponge bathing min assist 3. Pt will complete toileting MOD I 4. Pt will complete hygiene/grooming standing at sink SBA 5. Pt will complete simulated tub/shower transfer with proper AE/AD min assist * Thaddeus Wallis RPH - 11/14/2021 3:47 PM EST AOP Patient Education on Meds to Beds Scripts AOP received prescriptions for Siria Petty for bedside delivery at discharge Prescriptions filled and ready Medication Copay Aspirin EC 81mg 2.00 Cephalexin 500mg 0.86 Docusate 100mg 4.00 APAP 325mg 4.00 [place] 5-325mg 1.80 Tramadol 50mg 1.35 Omeprazole 20mg 2.90 Ondansetron 4mg 4.00 Total $ 20.91 Patient Education Counseled patient on appropriate use and side effects of medications. Medications to be picked up in pharmacy Thaddeus Wallis PharmD [facility] [phone] * OSMEL Frazier - 11/14/2021 3:31 PM EST COMMERCIAL MAINTENANCE TECHNICIAN met with patient and spouse. COMMERCIAL MAINTENANCE TECHNICIAN explained that it was recommended for the patient to dischargehome with home health services for CBC lab draw on 11/16 as well as 1 week of therapy for safety precaution awareness. COMMERCIAL MAINTENANCE TECHNICIAN was able to arrange services through [facility]. COMMERCIAL MAINTENANCE TECHNICIAN explained they would contact her to arrange start of care. She denies additional concerns. * Trisha Shook, PT - 11/14/2021 3:25 PM EST 11/14/21 1357 Time In/Out Time In 1357 Time Out 1450 Total Visit Time 53 minutes Total Treatment Time 53 minutes PT Therapy Completed Yes Initial Evaluation/Screen Completed? yes General Information RN Approved Intervention as tolerated Diagnosis OA of L hip Surgical Procedure L TILA (anterior/lateral) with abductor repair Past Medical History Past Medical History: Diagnosis Date Asthma COPD (chronic obstructive pulmonary disease) Diabetes mellitus Essential hypertension, benign Hyperlipidemia Past Surgical History Past Surgical History: Procedure Laterality Date CHOLECYSTECTOMY GASTRIC BYPASS HERNIA REPAIR umbilical x2 LITHOTRIPSY RELEASE CARPAL TUNNEL Right Existing Precautions/Restrictions fall;hip;supplemental oxygen (global hip prec., no active hip abd, TTWB on L LE) Left Lower Extremity toe touch weight bearing Home Setting Residence Apartment Lives With spouse First floor setup bedroom Number of stairs to enter home 2 (not consecutive) Number of stairs in home 0 Mobility Equipment Available 2 wheeled walker Previous Level of Function Ambulation Skills independent Assistive Device none used Level of Ambulation household General Pain Documentation (Adult, OB, Peds) Presence of Pain complains of pain/discomfort Pain Location hip, left Pain Management Interventions ambulated Select Pain Scale (3/10) Cognitive Status Examination Orientation Status (Cognition) oriented x 4 Level of Consciousness alert Able to Follow Commands (Communication) WFL Personal Safety and Judgment intact Range of Motion (ROM) Range of Motion Examination bilateral lower extremity ROM was WFL (L hip within precautions) Manual Muscle Testing (MMT) Manual Muscle Testing Results deficits as listed below (L hip flexion 3+/5) Bed Mobility Skill: Supine to Sit, Rehab Eval Level of [place]: Supine/Sit minimum assist (75% patients effort) Physical Assist/Nonphysical Assist: Supine/Sit 1 person assist Transfer Skill: Sit To Stand, Rehab Eval [place] (Sit-Stand Transfers) contact guard Physical Assist/Nonphysical Assist: Sit/Stand 1 person assist Weight-Bearing Restrictions: Sit/Stand toe touch weight-bearing Assistive Device For Transfer: Sit/Stand 2 wheeled walker Gait Skills, PT Eval Level of [place]: Gait contact guard Physical Assist/Nonphysical Assist: Gait 1 person assist Weight-Bearing Restrictions: Gait toe touch weight-bearing Assistive Device For Transfer: Gait 2 wheeled walker Gait Distance 25 feet Gait Analysis, PT Eval Gait Pattern Used swing-to gait Balance Additional Documentation (Seated: Good; Standing: Fair-) Sensory Examination Sensory Examination WFL Plan of Care Interventions Planned Therapy Interventions balance training;bed mobility training;edema control;endurance;gait training;strengthening;transfer training Additional Comments PT consult received, chart reviewed and PT evaluation completed. Pt educated onhip precautions, weight bearing status and use of leg barrel marker. Pt performed ankle pumps and quad sets on the L LE for 1x10. Pt educated that these are the only 2 exercises she is to complete at this time. Pt educated on sequencing for transfers and gait using FWW to maintain TTWB. Gait training performed with pt ambulating 25ft using a FWW and CGA. Verbal cues provided consistently concerning sequencing in order to maintain weight bearing status. Pt also educated on icing, positioning and frequency of mobility. Pt then left seated in the recliner with the occupational therapist present. Assessment Assessment Narrative Pt is a 71 year old female s/p L TILA (anterior/lateral) with abductor repair. Pt is doing well post op with minimal complaints of pain. Pt is to complete ankle pumps and quad sets only on the L LE. L hip and quad weakness noted. Gait limited due to fatigue at this time. Pt requires consistance cueing for correct gait sequencing and to maintain weight bearing status. Pt shouldbe safe to return home but will require HH PT services to ensure safe mobility and management of hip precautions and weight bearing. Discharge Recommendations Recommend pt return home with HH PT services. Clinical Impression Co-evaluation/co-treatment performed? Yes, combination of simultaneous billable and non-billable treatment Criteria for Skilled Therapeutic Interventions Met (PT Eval) yes, treatment indicated Impairments Found (PT Eval) Strength;ROM (range of motion);Balance;Transfers;Gait/Locomotion;Edema;Aerobic capacity/endurance Rehab Potential (PT Eval) good Therapy Frequency 2 times a day PT Therapies Still to Complete 12 Continue care plan yes Today's Treatment Included PT evaluation, ther ex, transfer training, gait training and patient education Therapist Recommendations At Discharge Recommendations PT Services recommended at Discharge Plan Plan for next session Next visit review precautions, progress mobility, practice car transfers and steps as able, and review/perform HEP. PT Goals: 1. Pt will demonstrate understanding of all precautions during functional mobility. 2. Pt will perform all transfers with FWW and SBA to improve safety at home. 3. Pt will ambulate 50ft with FWW and SBA. 4. Pt will ambulate up and down 1 step up with CGA. 5. Pt will be independent with HEP per protocol. * EDY Parra - 11/14/2021 12:39 PM EST THIS PATIENT HAS HAD ORTHOPEDIC SURGERY AND IS EXPECTED TO HAVE PAIN REQUIRING NARCOTICS FOR >7 DAYS AND MAY NEED UP TO 8 tabs of ultram PER DAY AND THEREFORE 20tabs ARE BEING DISPENSED IN ACCORDANCE WITH POC DISCUSSED WITH DR LEW. An additional 10 tabs of norco given as rescue opiate. documented in this [facility]12-14-2021 Hospital Discharge instructions* Instructions* Raina Maurice RN - 11/14/2021 Diet: Resume diet tolerated. Medications: > Patients will be sent home with prescriptions, including medication for pain to be taken as directed. Stay ahead and do not allow your pain to get out of control. > If prescribed Aspirin, take twice a day for 30 days. Do not skip a dose, this is your medication for the prevention of blood clots. > If you have not had a bowel movement by your 3rd post-operative day you will need to use a gentle over the counter laxative such as Milk of magnesia, Fiberlax, Miralax, etc. Bowels need to move within 3 days or take action. Tonia Hose: > Help reduce the risk of blood clots and decrease swelling > To be worn bilaterally to the lower extremities for 30 days post-op > Patients can take their tonia hose off for 1 hour for every 8 hours that they wear them You will be discharged with two pairs of TONIA hose. Gel Ice Packs: > Change every 4 hours or as needed for swelling and pain for at least the first 2 weeks You will be discharged with six ice gel packs, and one ice gel compression wrap. Wound Care Instructions: Remove BRIT dressing on . Your incision is closed with Dermabond.You may shower with this. Do not saturate or submerge extremity in water (i.e. Bathtub, hot tub, etc.) until cleared by the provider. Do not wash/scrub directly over/on your incision. Pat your incision dry do not rub your incision with a towel. Do not place any lotions, ointments, creams or powder on your incision or operative leg. You will be discharged with seven ABD pads. Ambulation: > Weight bearing status : as tolerated > Above weight bearing status as tolerated with a walker then progress to a cane if stable, unless noted otherwise by the physician or therapist. For Hip Replacements: > No formal physical therapy, walking is the patients best therapy, unless otherwise noted. > General Hip Precautions Post op (unless otherwise noted from the doctor): * Do not cross legs at knee or ankles * Do not bend past 90 degrees * Do not twist * May roll to side with pillow between legs Hip Precautions: Contact Office ([phone]) if: > Any falls or injuries > Redness, drainage or swelling at the incision site that is out of the ordinary from post-operative findings (minor redness, swelling and warmth around the entire knee are common post-operatively) > Patient non-compliance with assistive devices during gait > Fever > 101 degrees. For low grade fevers use Incentive Spirometry @ 10 puffs per hour and tylenol as directed. The morning after your discharge, Dr. Lew's office will contact you to follow up with how your recovery is progressing at home. Anesthesia Precautions & Expectations: After anesthesia, rest for [address], drink alcoholic beverages or make any important decisions during this time. General anesthesia may cause a sore throat, jaw discomfort or muscle aches. These symptoms can last for one or two days. Over the next 48 hours after your surgery if you have questions that you feel are unanswered by your discharge instructions and Dr. Deleon office is closed, you may call [phone] where you will be connected with an after hours orthopedic nurse that will be able to answer your questions. documented in this encounterMckee Medical CenterAmbassador [id number] Miscellaneous Notes* Nursing Notes - Joni Ly RN - 11/14/2021 1:14 PM EST Discharged from PACU in stable condition at this time. Transported [facility] cart to [facility] 6. Cart placed in lowest position. Call light within reach. Pulse ox monitor on pt with alarms set. Report radha Salas Rn. documented in this encounterMckee Medical CenterAmbassador [id number] Instructions* Patient Instructions* Rocio Peña RN - 11/06/2021 7:[address] Lew's office will call you for your arrival time, 1-2 business days before your scheduled surgery. Please review your surgery checklist and bring your guide or booklet the day of surgery. Pre-Admission Testing Dept. [phone] Call if you have any changes in your medications, questions about your medication instructions or have additional health information you want added to your chart. Refer to the Pre-Op Bathing Instructions and use the wipes the night before surgery on pages 21-22. Nothing by mouth after midnight except for water and Gatorade/powerade which can be consumed up until you leave for the hospital. Please refer to pages 10-11 for additional medicines and supplements to avoid prior to surgery. *YOUR SURGEON'S OFFICE WILL NOTIFY YOU REGARDING COVID TESTING* Please record date and time of your medications on this sheet and bring this with you on the day ofsurgery. Yellow - take the day of surgery [place] - hold according to the doctor's instructions or pre-admission testing instructions Medication Sig Last Dose albuterol (ProAir HFA) 108 (90 Base) MCG/ACT Aero Soln inhaler NEEDED Continue and take the morning of surgery, IF NEEDED, and Last Dose: Date Time alendronate 70 MG tablet EVERY 7 DAYS CONTINUE, but DO NOT take the morning of surgery. Last Dose: Date Time aspirin 81 MG Chew Tab chewable tablet 81 mg, Oral, DAILY ASK ABOUT STOPPING THIS MEDICINE AT YOUR CLEARANCE APPOINTMENT. Last Dose: Date Time atorvastatin 40 MG tablet EVERY EVENING CONTINUE, but DO NOT take the morning of surgery. Last Dose: Date Time Calcium Citrate 1040 MG tablet 600 mg, Oral, DAILY STOP TAKING 7 DAYS BEFORE YOUR SURGERY Last Dose: Date Time Cholecalciferol 125 MCG (5000 UT) per tablet AT BEDTIME STOP TAKING 7 DAYS BEFORE YOUR SURGERY Last Dose: Date Time Colchicine 0.6 MG capsule NEEDED CONTINUE, but DO NOT take the morning of surgery. Last Dose: Date Time cyanocobalamin 1000 MCG tablet 500 mcg, Oral, Once or twice/month STOP TAKING 7 DAYS BEFORE YOUR SURGERY Last Dose: Date Time Ferrous Sulfate (IRON PO) 3 TIMES DAILY CONTINUE, but DO NOT take the morning of surgery. Last Dose: Date Time furOSEmide 20 MG tablet DAILY CONTINUE, but DO NOT take the morning of surgery. Last Dose: Date Time hydrocortisone 2.5 % Lotion Topical, NEEDED CONTINUE, but DO NOT take the morning of surgery. Last Dose: Date Time ipratropium-albuterol 0.5-2.5 (3) MG/3ML nebulizer solution ipratropium 0.5 mg- albuterol 3 mg (2.5 mg base)/3 mL nebulization soln Continue and take the morning of surgery, IF NEEDED Last Dose: Date Time metFORMIN 500 MG tablet 3 TIMES DAILY CONTINUE, but DO NOT take the morning of surgery. Last Dose: Date Time metoprolol succinate 25 MG tablet XL Oral, DAILY EVERY MORNING CONTINUE AND TAKE THE MORNING OF SURGERY WITH SIP OF WATER Last Dose: Date Time multivitamin tablet 1 tablet, Oral, DAILY STOP TAKING 7 DAYS BEFORE YOUR SURGERY Last Dose: Date Time nystatin-triamcinolone 017494-7.1 UNIT/GM-% Ointment NEEDED CONTINUE, but DO NOT take the morning of surgery. Last Dose: Date Time documented in this [facility]11-02-2021 Evaluation note* Encounter Date Diagnosis Assessment Notes Treatment Notes Treatment Clinical Notes Oct, Obstructive sleep apnea (ICD-10 - G47.33) Fortunately she is using and benefiting from treatment. She is doing well with machine and tolerates current pressures. AHI is much improved. She does have some leakage from mask. She has some fatigue from low iron as well, now being evaluated and treated. Previously elevated AHI on download has resolved Oct, Restless leg syndrome (ICD-10 - G25.81) Not currently an active problem Oct, Iron deficiency anemia, unspecified iron deficiency anemia type (ICD-10 - D50.9) currently being treated. This obviously can add to fatigue, but may also predispose to RLS LOAG Other Evaluation note* Diagnosis Preop testing- Primary Preoperative examination, unspecified Primary osteoarthritis of left hip Primary localized osteoarthrosis, pelvic region and thigh documented in this encounter [facility] note* Diagnosis Preop testing- Primary Preoperative examination, unspecified Abnormal coagulation profile Abnormal coagulation profile Encounter for preoperative screening laboratory testing for COVID-19 virus Primary osteoarthritis of left hip Primary localized osteoarthrosis, pelvic region and thigh Acute postoperative pain of left knee documented in this encounter [facility] note* Diagnosis Hx of total hip arthroplasty, left- Primary Hx of total hip arthroplasty, left- Primary documented in this encounter [employer] SystemEvaluation note* Diagnosis Hx of total hip arthroplasty, left- Primary documented in this encounter [facility]valuation note* Diagnosis Hx of total hip arthroplasty, left- Primary documented in this encounter [facility] note* Diagnosis Hx of total hip arthroplasty, left- Primary Pain due to left hip joint prosthesis, sequela documented in this encounter [facility]valuation note* Diagnosis Trigger finger of left hand, unspecified finger- Primary documented in this encounter [employer] [facility] note* Diagnosis Primary osteoarthritis of one hip, left- Primary documented in this encounter [facility] CenterAmb[facility] SystemEvaluation noteNo assessment information availableBlanchard Valley Health System Ctr Work Phone: History general Narrative - Reported* Type Description Date Medical History COPD Medical History ADRIANNA Medical History diastolic CHF with preserved EF Medical History Type II diabetes diet controlled LOAG Other History of Present illness Narrative* Rashmi Barksdale RN - 11/06/2021 7:00 AM EST PAT- ADDITIONAL QUESTIONS Reviewed medication list with patient, asked and added any additional medicines, vitamins, supplements and diet pills or appetite suppressants to the patient Med Review. Also Reconciled Medications from outside sources to Med Review. Patient verified Med Review is accurate. yes HISTORY OF BLOOD CLOTS no ACTIVITY TOLERANCE (MET LEVEL) <4mets, all my life CHEST PAIN (SEE ADDITIONAL CHEST PAIN QUESTIONNAIRE IF APPLICABLE) no HISTORY OF HEART CATH/STENT PLACEMENT No Stress test 1-2 weeks ago- I did fine. There was no evidence of heart attack or anything HISTORY OF ANESTHESIA COMPLICATION Prolonged sedation MEDICAL CLEARANCE, CARDIOLOGY CLEARANCE Dr Hickman 11/01-cleared DIFFICULT IV PLACEMENT no LIMB RESTRICTIONS no MEDICAL IMPLANTS (DIABETIC, NERVE STIMULATORS, POWER PORTS, LOOP RECORDER, ETC) no HISTORY OF ANTIBIOTIC RESISTANT BACTERIAL INFECTION (MRSA, C-DIFF) no VISION (glasses, contacts, or other impairments) glasses HEARING AIDS OR ANY TROUBLE HEARING [place] DIFFICULTY SWALLOWING no DENTAL APPLIANCES OR PROBLEMS (dentures, partials, loose teeth, missing teeth, broken teeth, caps or crowns) Dentures full BETA DONNIE USE yes STEROIDS IN THE PAST 2 YEARS no HISTORY OF BLOOD TRANSFUSION/REACTION no CULTURAL OR EPISCOPAL BELIEFS THAT WILL AFFECT CARE no DIETARY RESTRICTIONS Gastric bypass CONCERNS FOR PERSONAL SAFETY no Have you been diagnosed with a concussion in the past 6 months? no Have you tested positive for COVID 19? (if pt does breathing is not back to baseline please order CXR) Yes, but no s/s Have you had your COVID vaccination? 03/17/2021, 02/17/2021 ADVANCE DIRECTIVES no IF PATIENT HAS NOT BEEN DIAGNOSED WITH SLEEP APNEA PLEASE COMPLETE STOP-BANG STOP Do you SNORE loudly (louder than talking or loud enough to be heard through closed doors)? CPAP-Pt instructed to bring CPAP DOS Has anyone OBSERVED you stop breathing during your sleep? Do you often feel TIRED, fatigued, or sleepy during daytime? Do you have or are you being treated for high blood PRESSURE? BMI more than 35kg/m2? AGE over 50 years old? NECK circumference > 16 inches (40 cm)? GENDER: Male? TOTAL SCORE PT ACCEPTED REFERRAL High risk of ADRIANNA: Yes 5-8 Intermediate risk of ADRIANNA: Yes 3-4 Low risk of ADRIANNA: Yes 0-2 * See DEPARTMENT OF SURGERY AND ANESTHESIA REFERRAL FOR SLEEP STUDY AND/OR PULMONARY CONSULT paper form signed by patient in chart. Verified procedure and surgery date with patient. Reviewed pt history and medications with patient.Pt was given instructions for upcoming surgery and given opportunity to ask questions. Pt verbalized understanding of instructions. documented in this encounterGalion HospitalReason for referral (narrative)* Consultation (Routine) - New Request Specialty Diagnoses / Procedures Referred By Contac t Referred To Contact Orthopaedics Diagnoses Hx of total hip arthroplasty, left Jeyson Lew MD [address] [place] [id number] Marcus Calles MD [address] [place] [id number] Referral ID Status Reason Start Date Expiration Date V isits Requested Visits Authorized [id number] New Request 08/01/2022 08/26/2023 1 1 * Medication Prior Authorization - Closed Specialty Diagnoses / Procedures [facility]erred To Contact Jeyson Lew MD [address] [place] [phone] Referral ID Status Reason Start Date Expiration Date Visits Re quested Visits Authorized [id number] Closed 1 1 * Adjunctive Therapy (Routine) - New Request Specialty Diagnoses / Procedures Referred By Contac t Referred To Contact Physical Therapy Diagnoses Hx of total hip arthroplasty, left Pain due to left hip joint prosthesis, sequela Jeyson Lew MD [address] [place] [id number] Referral ID Status Reason Start Date Expiration Date V isits Requested Visits Authorized [id number] New Request 08/01/2022 08/26/2023 1 1 Scheduling Instructions . * Diagnostic X-Ray (Routine) - New Request Specialty Diagnoses / Procedures Referred By Contac t Referred To Contact Diagnoses Hx of total hip arthroplasty, left Procedures XR HIP WITH PELVIS LEFT Jeyson Lew MD [address] [place] [id number] Referral ID Status Reason Start Date Expiration Date V isits Requested Visits Authorized [id number] New Request 07/20/2022 08/14/2023 1 1 [facility] for visit Narrative* Auth/Cert Specialty Diagnoses / Procedures Referred By Raúlac t Referred To Contact Diagnoses Primary osteoarthritis of left hip Primary osteoarthritis of left hip [M16.12] Procedures NM TOTAL HIP ARTHROPLASTY ARTHROPLASTY HIP TOTAL LATERAL APPROACH Jeyson Lew MD [address] [place] [id number] Referral ID Status Reason Start Date Expiration Date Visits Re quested Visits Authorized [id number] 10/18/2021 1 1 [employer] [facility] Advance Directives No Advanced Directives Records FoundLatest Code Status on File Code Status Date Activated Date Inactivated Comments Full Code 11/14/2021 12:54 PM Latest Code Status on File Code Status Date Activated Date Inactivated Comments Full Code 11/14/2021 12:54 PM Latest Code Status on File Code Status Date Activated Date Inactivated Comments Full Code 11/14/2021 12:54 PM Latest Code Status on File Code Status Date Activated Date Inactivated Comments Full Code 11/14/2021 12:54 PM Advance Directive Response Recorded Date/ Time Advance Directives No January 2:13pm Reason for Referral Specialty Diagnoses / Procedures Referred By Raúlac t Referred To Contact Diagnoses Hx of total hip arthroplasty, left Procedures XR HIP WITH PELVIS LEFT Cheryl Sahni APRN-CNP [address] [place] [address] Referral ID Status Reason Start Date Expiration Date V isits Requested Visits Authorized [id number] New Request 11/30/2021 12/25/2022 1 1 Referral ID Status Reason Start Date Expiration Date V isits Requested Visits Authorized [id number] New Request 01/16/2022 02/10/2023 1 1 Specialty Diagnoses / Procedures Referred By Raúlac t Referred To Contact Diagnoses Hx of total hip arthroplasty, left Procedures XR HIP WITH PELVIS LEFT Jeyson Lew MD [address] [place] [address] Referral ID Status Reason Start Date Expiration Date V isits Requested Visits Authorized [id number] New Request 03/30/2022 04/24/2023 1 1 Summary Purpose Family History No Family History Records Found Relationship Condition Age at Onset Recorded Date/T yun Not Specified Alzheimer's disease Unknown Hypertension Unknown father Parkinson's disease Unknown Hypotension Unknown sister Malignant neoplasm of breast Unknown brother Malignant neoplasm of thyroid gland Unkno wn Chief Complaint and Reason for Visit Chief Complaint annual-2yr Additional Source Comments Reason for Visit (unrecogniz ed section and content) Reason Comments Preoperative Nurse Assessment Left TILA 1 01/15 [facility] Specialty Diagnoses / Procedures Referred By Arlet t Referred To Contact Diagnoses Hx of total hip arthroplasty, left Procedures XR HIP WITH PELVIS LEFT Cheryl Sahni, JACK SPOOLER TENDER-LUIS [address] [place] [id number] Referral ID Status Reason Start Date Expiration Date V isits Requested Visits Authorized [id number] New Request 11/30/2021 12/25/2022 1 1 Reason Comments Post Op Visit Specialty Diagnoses / Procedures Referred By Contac t Referred To Contact Diagnoses Hx of total hip arthroplasty, left Procedures XR HIP WITH PELVIS LEFT Jeyson Lew MD [address] [place] [id number] Referral ID Status Reason Start Date Expiration Date V isits Requested Visits Authorized [id number] New Request 03/30/2022 04/24/2023 1 1 Referral ID Status Reason Start Date Expiration Date V isits Requested Visits Authorized [id number] New Request 07/20/2022 08/14/2023 1 1 Reason Comments Pain Reason Comments Consult Middle finger trigge ring Specialty Diagnoses / Procedures Referred By [place] t Referred To Contact Orthopaedics Diagnoses Hx of total hip arthroplasty, left Jeyson Lew MD [address] [place] [id number] Marcus Calles MD [address] [place] [id number] Referral ID Status Reason Start Date Expiration Date V isits Requested Visits Authorized [id number] New Request 08/01/2022 08/26/2023 1 1 Referral ID Status Reason Start Date Expiration Date V isits Requested Visits Authorized [id number] New Request 11/21/2022 12/16/2023 1 1 Reason Comments Follow-up Care Teams (unrecognized sec tion and content) Water Systems Engineer Relationship Specialty Start Date End Date Tyshawn Hickman II, MD [address] [place] [address] PCP - General Internal Medicine 08/10/21 Water Systems Engineer Relationship Specialty Start Date End Date Tyshawn Hicmkan II, MD [address] [place] [address] PCP - General Internal Medicine 08/10/21 Water Systems Engineer Relationship Specialty Start Date End Date Tyshawn Hickman II, MD [address] [place] [address] PCP - General Internal Medicine 08/10/21 Water Systems Engineer Relationship Specialty Start Date End Date Tyshawn Hickman II, MD [address] [place] [address] PCP - General Internal Medicine 08/10/21 Water Systems Engineer Relationship Specialty Start Date End Date Tyshawn Hickman II, MD [address] [place] [address] PCP - General Internal Medicine 08/10/21 Water Systems Engineer Relationship Specialty Start Date End Date Tyshawn Hickman II, MD [address] [place] [address] PCP - General Internal Medicine 08/10/21 Water Systems Engineer Relationship Specialty Start Date End Date Tyshawn Hickman II, MD [address] [place] [address] PCP - General Internal Medicine 08/10/21 Water Systems Engineer Relationship Specialty Start Date End Date Tyshawn Hickman II, MD [address] [place] [address] PCP - General Internal Medicine 08/10/21 Water Systems Engineer Relationship Specialty Start Date End Date Tyshawn Hickman II, MD [address] [place] [address] PCP - General Internal Medicine 08/10/21 Water Systems Engineer Relationship Specialty Start Date End Date Tyshawn Hickman II, MD [address] [place] [address] PCP - General Internal Medicine 08/10/21 Water Systems Engineer Relationship Specialty Start Date End Date Tyshawn Hickman II, MD [address] [place] [address] PCP - General Internal Medicine 08/10/21 Team Status: Active Member Role Status Dates Tyshawn Hickman II MD Primary Care Provider Active Team Status: Inactive Member Role Status Dates Tyshawn Hickman II MD Primary Care Provider Active Pb Sanabria MD Attending Provider Active Scheduled Active and Recently Administ ered Medications (unrecognized section and content) Medication Order 11/12/2021 11/13/2021 11/14/2021 acetaminophen (TYLENOL) tablet 1,000 mg (COMPLETED) 1,000 mg, Oral, ONCE, 1 dose, On Sat11/14/21 at 0800, Administer 1 hour preop., Pre-op/Pre-Proc 0808 (Given - Provid er: Carlee Ivory RN) acetaminophen (TYLENOL) tablet 1,000 mg 1,000 mg, Oral, EVERY 6 HOURS NON-STANDARD, First dose on Sat11/14/21 at 1445, Until Discontinued, , Post-op/Post-Proc 1614 (Given - Provid er: Yadira Salas RN)2044 (Canceled Entry - Provider: System Discharge - Comment: Automatically canceled at discontinue of medication order) aspirin EC tablet DR 81 mg 81 mg, Oral, 2 TIMES DAILY, First dose on Sat11/15/21 at 0900, Until Discontinued ceFAZolin (ANCEF) 2 g in dextrose 100 mL premix IVPB 2 g, Intravenous, Administer over 30 Minutes, EVERY 8 HOURS NON-STANDARD, 3 doses, First dose on Sat11/14/21 at 1745, Last dose on Sat11/15/21 at 0945, Give dose #2 prior to discharge - (dose #1 given pre-operatively) to continue if patient stays overnight., Post-op/Post-Proc 1736 ($$New Bag$$ - Provider: Yadira Salas RN) docusate (COLACE) capsule 100 mg 100 mg, Oral, 2 TIMES DAILY, First dose on Sat11/14/21 at 1700, Until Discontinued, Post-op/Post-Proc 1614 (Given - Provid er: Yadira Salas RN) ropivacaine (NAROPIN) 1 % 400 mg, EPINEPHrine PF (ADRENALIN) 1 MG/ML 1 mg, ketorolac (TORADOL) 30 MG/ML 30 mg, cloNIDine 100 MCG/ML 171 mcg, sodium chloride 0.9% 45 mL 88.71 mL (total volume) (COMPLETED) Intra-articular, INTRA-OP ONCE, 1 dose, Starting on Sat11/14/21 at 1128, Until Sat11/14/21 at 1140, 88.71 mL, To be mixed by pharmacy NOT for IV use, Intra-op/Intra-Proc 1140 (Given - Provid er: Jeyson Lew MD - Comment: Intraoperatively) tranexamic acid (LYSTEDA) tablet 1,950 mg (COMPLETED) 1,950 mg, Oral, ONCE, 1 dose, On Sat11/14/21 at 0800, Administer 2 hours preop, Pre-op/Pre-Proc 0808 (Given - Provid er: Carlee Ivory RN) Continuous Medication Order 11/12/2021 11/13/2021 11/14/2021 sodium chloride 0.9% IV solution Intravenous, at 100 mL/hr, CONTINUOUS, Starting on Sat11/14/21 at 0800, Until Sat11/14/21 at 2114, Pre-op/Pre-Proc 0808 ($$New Bag$$ - Provider: Carlee Ivory RN)1850 (Stopped - Provider: Yadira Salas RN) sodium chloride 0.9% IV solution Intravenous, at 100 mL/hr, CONTINUOUS, Starting on Sat11/14/21 at 1300, Until Sat11/14/21 at 2114, Convert IV to PRN adapter post op day 1 if adequate oral intake, Post-op/Post-Proc 1815 (Stopped - Prov ider: Yadira Salas RN) PRN Medication Order 11/12/2021 11/13/202111/1411/14/2021 bisacodyl (DULCOLAX) suppository 10 mg 10 mg, Rectal, DAILY NEEDED, Starting on Sat11/14/21 at 1254, Until Sat11/14/21 at 2113, constipation, Post-op/Post-Proc ceFAZolin (ANCEF) 2 g in dextrose 100 mL premix IVPB (COMPLETED) 2 g, Intravenous, Administer over 30 Minutes, BENCH TOOL MAKER TO PROCEDURE, 1 dose, Starting on Sat11/14/21 at 0754, Until Discontinued, Other, Pre-operative antibiotic, For 15 Minutes, Pre-op/Pre-Proc 1051 (Given - Provid er: Jessica Rosa, JACK SPOOLER TENDER-BUHR DRESSER - Comment: PSR s/p negative test dose) dexAMETHasone (DECADRON) injection 10 mg (COMPLETED) 10 mg, Intravenous, ONCE DIRECTED, 1 dose, Starting on Sat11/14/21 at 1430, Until Sat11/14/21 at 1736, 30 minutes prior to Discharge., One dose 30 minutes prior to discharge, Post-op/Post-Proc 1736 (Given - Provid er: Yadira Salas RN) HYDROmorphone (DILAUDID) injection 0.5 mg 0.5 mg, Intravenous, EVERY 4 HOURS NEEDED, Starting on Sat11/14/21 at 1254, Until Sat11/14/21 at 2113, Severe Pain, Post-op/Post-Proc ondansetron 4mg/2ml (ZOFRAN) injection 4 mg 4 mg, Intravenous, EVERY 4 HOURS NEEDED, Starting on Sat11/14/21 at 1254, Until Sat11/14/21 at 2113, Nausea / Vomiting, Post-op/Post-Proc senna-docusate (SENOKOT-S) 8.6-50 MG per tablet 2 tablet 2 tablet, Oral, 2 TIMES DAILY NEEDED, Starting on Sat11/14/21 at 1254, Until Sat11/14/21 at 2113, constipation, Post-op/Post-Proc sodium chloride 0.9 % irrigation NEEDED, Starting on Sat11/14/21 at 1119, Until Sat11/14/21 at 2113, Intra-op/Intra-Proc 1119 (Given - Provid er: Jeyson Lew MD - Comment: 1500 on sterile field) sodium phosphate w/sodium biphosphate (FLEETS) enema 1 enema 1 enema, Rectal, DAILY NEEDED, Starting on Sat11/14/21 at 1254, Until Sat11/14/21 at 2113, Refractory Constipation, use per package instructions, Post-op/Post-Proc traMADol (ULTRAM) tablet 50-100 mg 50-100 mg, Oral, EVERY 6 HOURS NEEDED, Starting on Sat11/14/21 at 1254, Until Sat11/14/21 at 2113, Mild Pain, Moderate Pain, Post-op/Post-Proc vancomycin (VANCOCIN) injection NEEDED, Starting on Sat11/14/21 at 1207, Until Sat11/14/21 at 2113, Intra-op/Intra-Proc 1207 (Given - Provid er: Jeyson Lew MD - Comment: Intraoperatively) zolpidem (AMBIEN) tablet 5 mg 5 mg, Oral, DAILY AT BEDTIME NEEDED, Starting on Sat11/14/21 at 2100, Until Sat11/14/21 at 2113, Sleep, Post-op/Post-Proc INFORMATION SOURCE (unrecogn ized section and content) DATE CREATED AUTHOR 10/17/2022 [facility] DATE CREATED AUTHOR AUTHOR'S ORGANIZ ATION 12/13/2022 [facility] DATE CREATED AUTHOR AUTHOR'S ORGANIZ ATION 03/08/2023 [facility] DATE CREATED AUTHOR AUTHOR'S ORGANIZ ATION 10/12/2023 [facility] DATE CREATED AUTHOR AUTHOR'S ORGANIZ ATION 11/05/2023 [facility] DATE CREATED AUTHOR AUTHOR'S ORGANIZ ATION 11/16/2023 [facility] Goals (unrecognized section and content) Goals may be documented in a n alternate section FOR RECORDS PERTAINING TO PATIENTS WHO ARE OR HAVE BEEN ENROLLED IN A CHEMICAL DEPENDENCY/SUBSTANCEABUSE PROGRAM, SOME INFORMATION MAY BE OMITTED. This clinical summary was aggregated from multiple sources. Caution should be exercised in using it in the provision of clinical care. This summary normalizes information from multiple sources, and as a consequence, information in this document may materially change the coding, format and clinical context of patient data. In addition, data may be omitted in some cases. CLINICAL DECISIONS SHOULD BE BASED ON THE PRIMARY CLINICAL RECORDS. [facility] provides no warranty or guarantee of the accuracy or completeness of information in this document.
--- NOTE | 2023-12-01 14:46 | CT_ITS ---
The [place] [address] Patient Name: TONIA BOYER MRN: [id number] date: 1950 Sex: F Assigned Patient Location: ER Current Patient Location: ER Accession/Order Number: [id number] Exam Date: 12/01/2023 15:18 Report Date: 12/01/2023 16:23 At the request of: YOBANI SIM Procedure: CT abdomen pelvis wo con EXAMINATION: CT abdomen pelvis wo con, 12/01/2023 12:18 PM PST HISTORY: LLQ pain COMPARISON: None. TECHNIQUE: CT scan of the abdomen and pelvis was performed without IV contrast. CT dose reduction technique was used, including Automated Exposure Control. FINDINGS: Lung: No significant finding. Liver: Nodular hepatic contour. Gallbladder: Absent. Spleen: Calcified granuloma. Pancreas: No significant finding. Adrenal glands: No significant finding. Kidneys, ureters and bladder: Simple right renal cyst. No hydronephrosis. No renal/urinary tract calculi. Bladder is decompressed. 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 No focal inflammatory changes. Colonic diverticulosis without diverticulitis. No findings of appendicitis. Peritoneum/retroperitoneum: No significant finding. Lymph nodes: No significant finding. Vessels: Mild scattered atherosclerotic calcification. Body wall: Ventral hernia repair mesh noted. Reproductive: No significant finding. Bones: Left hip arthroplasty. CT/CT abdomen pelvis wo con IMPRESSION: No acute findings. Cirrhotic morphology. Colonic diverticulosis without diverticulitis. No renal/urinary tract calculi. Electronically authenticated by: SIGIFREDO MILLER Date: 12/01/2023 16:23
[2023-12-01 15:16] LABS: Influenza Virus A Antigen Negative; Influenza Virus B Antigen Negative; Internal Control Within Normal Limits; SARS-CoV-2 Ag NEGATIVE (NEGATIVE)
[2023-12-01 15:18] LABS: Bilirubin Urine NEGATIVE (NEGATIVE); Blood Urine TRACE-I (NEGATIVE); Clarity Urine CLEAR (CLEAR); Color Urine YELLOW (YELLOW); Glucose Urine UA NEGATIVE (NEGATIVE); Ketones Urine NEGATIVE (NEGATIVE); Leukocyte Esterase Urine NEGATIVE (NEGATIVE); Nitrite Urine NEGATIVE (NEGATIVE); Protein Urine TRACE mg/dL (NEG/TRACE); Specific Gravity Urine 1.015 (1.005-1.025); pH Urine 7.5 (5.0-9.0)
[2023-12-01 15:24] LABS: Urine Microscopic Indicated YES
[2023-12-01 15:25] LABS: Basophils Percent Auto 0.4 % (0.2-2.0); Eosinophils Percent Auto 0.3 % (0.9-7.0); Hematocrit 29.8 % (36.0-48.0); Hemoglobin 8.9 g/dL (12.0-16.0); Immature Granulocytes Abs Auto 0.02 10^3/uL (0.00-0.03); Immature Granulocytes Pct Auto 0.3 % (0.0-0.5); Lymphocytes Absolute Auto 0.7 10^3/uL (1.2-3.8); Lymphocytes Percent Auto 10.2 % (20.5-60.0); Mean Corpuscular HGB Conc 29.9 g/dL (29.9-35.2); Mean Corpuscular Hemoglobin 25.1 pg (26.7-34.0); Mean Corpuscular Volume 84.2 fL (81.0-99.0); Mean Platelet Volume 12.1 fL (9.5-13.5); Monocytes Absolute Auto 0.5 10^3/uL (0.3-0.8); Monocytes Percent Auto 7.6 % (1.7-12.0); Neutrophils Absolute Auto 5.7 10^3/uL (1.4-6.5); Neutrophils Percent Auto 81.2 % (43.0-75.0); Platelet Count 123 10^3/uL (150-450); Red Blood Count 3.54 10^6/uL (4.20-5.40); Red Cell Distribution Width 15.5 % (11.0-15.0)
[2023-12-01 15:30] LABS: Alanine Aminotransferase 25 U/L (14-59); Albumin Globulin Ratio 0.8; Albumin Level 3.3 g/dL (3.4-5.0); Alkaline Phosphatase 74 U/L (46-116); Anion Gap 13.3; Aspartate Amino Transferase 38 U/L (15-37); BUN Creatinine Ratio 13.1; Bilirubin Total 0.6 mg/dL (0.2-1.0); Calcium 9.6 mg/dL (8.5-10.1); Carbon Dioxide 27.9 mmol/L (21.0-32.0); Chloride 100 mmol/L (98-107); Estimated GFR (African America >60 (>=60); Estimated GFR (Non-African Ame 55 (>=60); Glucose 135 mg/dL (74-106); Potassium 4.2 mmol/L (3.5-5.1); Sodium 137 mmol/L (136-145); Total Protein 7.3 g/dL (6.4-8.2)
[2023-12-01 15:32] LABS: Bacteria Urine TRACE #/HPF (NONE SEEN); Cast Seen? NONE SEEN #/LPF (NONE SEEN); Crystals Seen? None Seen #/HPF (None Seen); Mucus Urine NONE SEEN (NONE SEEN); Squamous Epithelial Cell Urine RARE #/LPF (NONE/RARE); Urine Culture Indicated NO; WBC Urine NONE SEEN #/HPF (NONE SEEN)
[2023-12-01 15:34] LABS: Lactate/Lactic Acid 2.7 mmol/L (0.4-2.0)
[2023-12-01] MEDS: KETOROLAC TROMETHAMINE 30 MG/ML VIAL 15 MG IVP (15:44)
--- NOTE | 2023-12-01 16:43 | XR_ITS ---
The [address] [address] Patient Name: TONIA BOYER MRN: [id number] date: 1950 Sex: F Assigned Patient Location: ED.MAIN Current Patient Location: [place] Accession/Order Number: [id number] Exam Date: 12/01/2023 16:55 Report Date: 12/01/2023 18:02 At the request of: YOBANI SIM Procedure: XR chest 1V CXR HISTORY: Shortness of breath. COMPARISON: None. TECHNIQUE: 1 view of the chest submitted for review. FINDINGS: The lungs are hyperaerated. Lines and tubes: None No acute focal infiltrate. Prominence of bronchopulmonary markings. No effusion. Cardiac silhouette measures within normal limits. Pulmonary vascularity is prominent. Osseous structures are normal for age. XR/XR chest 1V IMPRESSION: Interstitial opacity seen in the left lower lobe. Please correlate for pneumonia versus atelectasis. Electronically authenticated by: CARLA BLANK Date: 12/01/2023 18:02
--- NOTE | 2023-12-01 16:45 | ED_ITS ---
HPI - General Adult General Chief complaint: Extremity Injury, Lower Stated complaint: LOWER EXTREMITY PAIN Time Seen by Provider: 12/01/23 14:14 Source: patient Mode of arrival: walk-in Limitations: no limitations History of Present Illness HPI narrative: Patient initially is coming to us with a left hip pain but she also mentioned that she have a history of recent sinus infection which she was getting treated for that with the amoxicillin for the last 30 days, the patient denies any sinus pain right now he denies any nausea vomiting or any other concerns other than the fact that she is hurting in her left lower abdomen, the pain radiated to the hip associated with no nausea or vomiting. Related Data Home Medications Medication Instructions Recorded Confirmed alendronate 70 mg tablet 70 mg PO QWEEK 12/01/23 12/01/23 amoxicillin 875 mg-potassium 1 tab PO BID 12/01/23 12/01/23 clavulanate 125 mg tablet aspirin 81 mg tablet,delayed 81 mg PO DAILY 12/01/23 12/01/23 release (Adult Low Dose Aspirin) atorvastatin 40 mg tablet 40 mg PO DAILY 12/01/23 12/01/23 cetirizine 10 mg tablet 10 mg PO DAILY PRN allergy symptoms 12/01/23 12/01/23 cholecalciferol (vitamin D3) 125 125 mcg PO DAILY 12/01/23 12/01/23 mcg (5,000 unit) tablet (Vitamin D3) cyanocobalamin (vitamin B-12) 500 500 mcg PO BID 12/01/23 12/01/23 mcg tablet (Vitamin B-12) famotidine 20 mg tablet 20 mg PO BID 12/01/23 12/01/23 fluticasone propionate 50 2 spray intranasal DAILY 12/01/23 12/01/23 mcg/actuation nasal spray,suspension furosemide 20 mg tablet 20 mg PO DAILY 12/01/23 12/01/23 ipratropium 0.5 mg-albuterol 3 mg 3 ml inhalation BID 12/01/23 12/01/23 (2.5 mg base)/3 mL nebulization soln metformin 500 mg tablet 500 mg PO TID 12/01/23 12/01/23 metoprolol succinate 25 mg 25 mg PO DAILY 12/01/23 12/01/23 tablet,extended release 24 hr multivitamin (Daily Multi-Vitamin 1 tab PO DAILY 12/01/23 12/01/23 tablet) Allergies Allergy/AdvReac Type Severity Reaction Status Date / Time No Known Drug Allergies Allergy Verified 12/01/23 15:11 Review of Systems ROS Status of ROS 10 or more systems reviewed and unremark able except as noted in history and below Exam Narrative Exam Narrative: Nurses notes and vital signs reviewed and patient is not hypoxic. General: Well-appearing and in no apparent distress. Skin: Warm, dry, no pallor noted. No rash. Head: Normocephalic, atraumatic. Neck: Supple, non-tender. Eye: Pupils are equal, round and EOMI. No scleral icterus. Ears, Nose, Mouth, and Throat: TM are clear, no nasal mucosal hypertrophy. Oral mucosa is moist, no posterior oropharynx erythema, uvula is mid-line Cardiovascular: Regular Rate and Rhythm without murmur, gallop or rub. Respiratory: No accessory muscle use or respiratory distress. Lungs are clear to auscultation, no wheezing, rales or rhonchi Chest Wall: no tenderness Back: No midline thoracic or lumbar vertebral tenderness. No CVA tenderness Musculoskeletal: normal ROM, no calf or popliteal tenderness, no lower extremity edema/swelling GI: Abdomen is soft, non-distended. Normal bowel sounds. No masses appreciated. There is tenderness upon palpation of the left lower quadrant of the abdomen with no tenderness on palpation of the right lower quadrant the patient also have no tenderness upon palpation of the right side the hip but the left side hip the patient have limitation of movement due to pain. Neurological: A&O x4. No cranial nerve dysfunction observed. No truncal ataxia. Moves all extremities. Sensation intact. Psychiatric: Cooperative and interactive. Normal mood and affect. Constitutional Vital Signs, click to edit/add: Last Vital Signs Temp 101.5 F H 12/01/23 15:46 Pulse 100 H 12/01/23 15:46 Resp 18 12/01/23 15:46 BP 143/73 H 12/01/23 15:46 Pulse Ox 100 12/01/23 15:46 Course Vital Signs Vital signs: Vital Signs Temperature 102.6 F H 12/01/23 14:13 Pulse Rate 101 H 12/01/23 14:13 Respiratory Rate 18 12/01/23 14:13 Blood Pressure 145/71 H 12/01/23 14:13 Pulse Oximetry 99 12/01/23 14:13 Temperature 101.5 F H 12/01/23 15:46 Pulse Rate 100 H 12/01/23 15:46 Respiratory Rate 18 12/01/23 15:46 Blood Pressure 143/73 H 12/01/23 15:46 Pulse Oximetry 100 12/01/23 15:46 Medical Decision Making MDM Narrative Medical decision making narrative: Patient presented to us with a fever of 102 and upon presentation there was no source of infection that could be obtained than her left lower quadrant abdomen CBC shows shift to the left with more neutrophils at 80% and the patient have lactic acidosis of 2.7 The patient also had urinalysis showed no UTI the CAT scan did not show any acute pathology The patient still complaining of left lower quadrant abdominal pain as well as left hip pain The patient also had a chest x-ray ordered and pending Discussed the case with Dr. Crawford. Obtained a blood culture and the patient will have a ceftriaxone Chest x-ray pending and the patient COVID and flu test are negative Lab Data Labs: Lab Results 12/01/23 12/01/23 Range/Units 14:45 15:04 WBC 7.0 (4.0-11.0) 10^3/uL RBC 3.54 L (4.20-5.40) 10^6/uL Hgb 8.9 L (12.0-16.0) g/dL Hct 29.8 L (36.0-48.0) % MCV 84.2 (81.0-99.0) fL MCH 25.1 L (26.7-34.0) pg MCHC 29.9 (29.9-35.2) g/dL RDW 15.5 H (11.0-15.0) % Plt Count 123 L (150-450) 10^3/uL MPV 12.1 (9.5-13.5) fL Neut % (Auto) 81.2 H (43.0-75.0) % Lymph % (Auto) 10.2 L (20.5-60.0) % [place] % (Auto) 7.6 (1.7-12.0) % Eos % (Auto) 0.3 L (0.9-7.0) % Baso % (Auto) 0.4 (0.2-2.0) % Neut # (Auto) 5.7 (1.4-6.5) 10^3/uL Lymph # (Auto) 0.7 L (1.2-3.8) 10^3/uL [place] # (Auto) 0.5 (0.3-0.8) 10^3/uL Eos # (Auto) 0.0 (0.0-0.7) 10^3/uL Baso # (Auto) 0.0 (0.0-0.1) 10^3/uL Abs Immat Gran (auto) 0.02 (0.00-0.03) 10^3/uL Imm/Tot Granulo (auto) 0.3 (0.0-0.5) % Sodium 137 (136-145) mmol/L Potassium 4.2 (3.5-5.1) mmol/L Chloride 100 (98-107) mmol/L Carbon Dioxide 27.9 (21.0-32.0) mmol/L Anion Gap 13.3 BUN 13.0 (7.0-18.0) mg/dL Creatinine 0.99 (0.55-1.02) mg/dL Est GFR ( Amer) >60 (>=60) Est GFR (Non-Af Amer) 55 L (>=60) BUN/Creatinine Ratio 13.1 Glucose 135 H (74-106) mg/dL Lactate 2.7 H* (0.4-2.0) mmol/L Calcium 9.6 (8.5-10.1) mg/dL Total Bilirubin 0.6 (0.2-1.0) mg/dL AST 38 H (15-37) U/L ALT 25 (14-59) U/L Alkaline Phosphatase 74 (46-116) U/L Total Protein 7.3 (6.4-8.2) g/dL Albumin 3.3 L (3.4-5.0) g/dL Globulin 4.0 g/dL Albumin/Globulin Ratio 0.8 Urine Color Yellow (YELLOW) Urine Clarity Clear (CLEAR) Urine pH 7.5 (5.0-9.0) Ur Specific [place] 1.015 (1.005-1.025) Urine Protein Trace (NEG/TRACE) mg/dL Urine Glucose (UA) Negative (NEGATIVE) mg/dL Urine Ketones Negative (NEGATIVE) mg/dL Urine Occult Blood Trace-i (NEGATIVE) Urine Nitrite Negative (NEGATIVE) Urine Bilirubin Negative (NEGATIVE) Urine Urobilinogen 1.0 (0.2-1.0) EU/dL Ur Leukocyte Esterase Negative (NEGATIVE) Urine RBC 5-10 A (0-2) #/HPF Urine WBC None seen (NONE SEEN) #/HPF Ur Squamous Epith Cells Rare (NONE/RARE) #/LPF Urine Crystals None seen (None Seen) #/HPF Urine Bacteria Trace A (NONE SEEN) #/HPF Urine Casts None seen (NONE SEEN) #/LPF Urine Mucus None seen (NONE SEEN) Ur Culture Indicated? No SARS-CoV-2 (PCR) Negative (NEGATIVE) Influenza Type A Ag Negative Influenza Type B Ag Negative Discharge Plan Discharge Chief Complaint: Extremity Injury, Lower Clinical Impression: Acute pelvic pain, Acidosis, lactic Fever Qualifiers: Fever type: unspecified Qualified Code(s): R50.9 - Fever, unspecified Patient Disposition: Admitted as Observation Time of Disposition Decision: 16:45
[2023-12-01] MEDS: 0.9 % SODIUM CHLORIDE 1,000 ML 1000 ML IV (16:47)
[2023-12-01] MEDS: CEFTRIAXONE 1,000 MG in 0.9 % SODIUM CHLORIDE 50 ML 100 MG IV (17:21)
--- OUTSIDE RECORDS SUMMARY | 2023-12-01 17:38 | XMS_ITS | CCD ---
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 Name Role Phone Vick KRAUS MD, Tyshawn Primary Care Provider Pb Sanab[place] Unavailable Vick KRAUS MD, Tyshawn [...] Smith, DR CHEN Admitting Unavailable VICK, DR VILLARGAN Primary Care Unavailable EUNICE .MIRA Consulting UnavailMilton [...] Unavailable Vick, NAYANA Villagran Primary Care Provider MD Pb Sanabria Attending Provider Pb Sanabria [...] acid 7540 MG / polyethylene glycol 3350 80759 MG / potassium chloride 1200 MG / sodium ascorbate 73415 MG / sodium chloride 3200 MG Powder for Oral Solution) / 1 (polyethylene glycol 3350 337605 MG / potassium chloride 1000 MG / [...] (12 sources) Polyene Antifungal, Corticosteroid nystatin-triamcinolo [place] 677894-7.1 UNIT/GM-% Ointment as needed. 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#[id number] 0TIFF [facility] Physician Order [id number]#1.0 0TIFF Normal [facility] MG MAMM SCREEN 3D NGOC CADon 02-28-2023 MG MAMM SCREEN 3D NGOC CAD Patient: SIRIA PETTY Exam Date: 02/28/2023 : 1950 Gender:F Ordering : DR TYSHAWN HICKMAN M.D. Admission #: [id number] Family : Order #: [id number] CLICK HERE TO VIEW EXAM RADIOLOGY REPORT [...] Treatments None Family Cancers None LOCATION: [facility] BREAST COMPOSITION: Almost entirely fatty. FINDINGS: [...] MD on 02/28/2023 at 14:23 Normal [facility] XR DEXA BONE DENSITYon 02-28 XR [...] PB MCBRIDE Date: 2023-02-28 15:36 Normal [facility] MRI HIP LEFT WITHOUT CONTRAS Ton 12-13-2022 MRI HIP LEFT WITHOUT CONTRAST EXAM: MRI HIP LEFT WITHOUT CONTRAST REASON FOR EXAM: Left hip pain, prior arthroplasty. TECHNIQUE: Multiplanar, multisequence imaging of the left hip was performed without contrast COMPARISON: Plain radiograph 11/27/2022. FINDINGS: On small [id number] imaging the left hip, susceptibility artifact consistent [...] hip regional musculature is unremarkable. On large sopnh-wo-vbdm imaging, the bone marrow signal is without [...] of the left common hamstring origin. Normal [facility] US Venous, Unilat, Lower Ext Righton 10-17-2022 [...] by Berhane Fernandez on 10/17/2022 1156 Normal [facility] Environmental Journalist XR HIP LT 2 3V W PELVISon [...] SOPHIA STEWART Date: 2022-10-03 00:50 Normal [facility] UPPER EXTREMITY INJECTION: L long A1on [...] fashion. The patient was prepped with alcohol. [facility] Radiology Study observation (narrative) [facility] MG MAMM DX 3D RT CADon 06-07 MG MAMM DX 3D RT CAD Patient: SIRIA PETTY Exam Date: 06/07/2022 : 1950 Gender:F Ordering : DR TYSHAWN HICKMAN M.D. Admission #: [id number] Family : Order #: [id number] CLICK HERE TO VIEW EXAM RADIOLOGY REPORT [...] Treatments None Family Cancers None LOCATION: [facility] BREAST COMPOSITION: Almost entirely fatty. FINDINGS: [...] M.D. on 06/07/2022 at 15:44 Normal [facility] CBC AUTO DIFFon 05-26-2022 BASO # 0.0 103/ul Normal 0.0-0.1 [facility] Comment on above: Performed By: #### C BC #### [facility] [address] [address] [address] Francesca Ortiz Basophils/100 WBC (Bld) 0.5 % Normal 0.2-2.0 [facility] Comment on above: Performed By: #### C BC #### [facility] [address] [address] [address] Francesca Ortiz EO # 0.1 103/ul Normal 0.0-0.7 [facility] Comment on above: Performed By: #### C BC #### [facility] [address] [place] [address] Dr. Francesca Ortiz Eosinophils/100 WBC (Bld) 1.9 % Normal 0.9-7.0 [facility] Comment on above: Performed By: #### C BC #### [facility] [address] [place] [address] Dr. Francesca Ortiz Erythrocyte distribution width (RBC) [Ratio] 13.5 % Normal 11.0-15.0 [facility] Comment on above: Performed By: #### C BC #### [facility] [address] [place] [address] Dr. Francesca Ortiz Hematocrit (Bld) [Volume fraction] 35.7 % Critically low 36.0-48.0 [facility] Comment on above: Performed By: #### C BC #### [facility] [address] [place] [address] Dr. Francesca Ortiz Hemoglobin (Bld) [Mass/Vol] 11.3 g/dL Critically low 12.0-16.0 [facility] Comment on above: Performed By: #### C BC #### [facility] [address] [place] [address] Dr. Francesca Ortiz IG # 0.01 10e3/ul Normal 0.00-0.03 [facility] Comment on above: Performed By: #### C BC #### [facility] [address] [place] [address] Dr. Francesca Ortiz IG % 0.2 % Normal 0.0-0.5 [facility] Comment on above: Performed By: #### C BC #### [facility] [address] [place] [address] Dr. Francesca Ortiz LYMPH # 1.7 103/ul Normal 1.2-3.8 [facility] Comment on above: Performed By: #### C BC #### [facility] [address] [place] [address] Dr. Francesca Ortiz Lymphocytes/100 WBC (Bld) 27.9 % Normal 20.5-60.0 [facility] Comment on above: Performed By: #### C BC #### [facility] [address] [place] [address] Dr. Francesca Ortiz MANUAL DIFF REQ NO Normal [facility] Comment on above: Performed By: #### C BC #### [facility] [address] [place] [address] Dr. Francesca Ortiz MCH (RBC) [Entitic mass] 29.9 pg Normal 26.7-34.0 [facility] Comment on above: Performed By: #### C BC #### [facility] [address] [place] [address] Dr. Francesca Ortiz MCHC (RBC) [Mass/Vol] 31.7 g/dL Normal 29.9-35.2 [facility] Comment on above: Performed By: #### C BC #### [facility] [address] [place] [address] Dr. Francesca Ortiz MCV (RBC) [Entitic vol] 94.4 fL Normal 81.0-99.0 [facility] Comment on above: Performed By: #### C BC #### [facility] [address] [place] [address] Dr. Francesca Ortiz MONO # 0.6 103/ul Normal 0.3-0.8 [facility] Comment on above: Performed By: #### C BC #### [facility] [address] [place] [address] Dr. Francesca Ortiz Monocytes/100 WBC (Bld) 9.9 % Normal 1.7-12.0 [facility] Comment on above: Performed By: #### C BC #### [facility] [address] [place] [address] Dr. Francesca Ortiz NEUT # 3.5 103/ul Normal 1.4-6.5 [facility] Comment on above: Performed By: #### C BC #### [facility] [address] [place] [address] Dr. Francesca Ortiz Neutrophils/100 WBC (Bld) 59.6 % Normal 43.0-75.0 [facility] Comment on above: Performed By: #### C BC #### [facility] [address] [place] [address] Dr. Francesca Ortiz Platelet mean volume (Bld) [Entitic vol] 10.7 fL Normal 9.5-13.5 [facility] Comment on above: Performed By: #### C BC #### [facility] [address] [place] [address] Dr. Francesca Ortiz PLT 131 103/ul Critically low 150-450 [facility] Comment on above: Performed By: #### C BC #### [facility] [address] [place] [address] Dr. Francesca Ortiz RBC 3.78 106/ul Critically low 4.20-5.40 [facility] Comment on above: Performed By: #### C BC #### [facility] [address] [place] [address] Dr. Francesca Ortiz WBC 5.9 103/ul Normal 4.0-11.0 [facility] Comment on above: Performed By: #### C BC #### [facility] [address] [place] [address] Dr. Francesca Ortiz PROF 14(COMP METB)on 022 Albumin [Mass/Vol] 3.6 g/dL Normal 3.4-5.0 [facility] Comment on above: Performed By: #### C MP #### [facility] [address] [place] [address] Dr. Francesca Ortiz Albumin/Globulin [Mass ratio] 1.1 {ratio} Normal [facility] Comment on above: Performed By: #### C MP #### [facility] [address] [place] [address] Dr. Francesca Ortiz ALP [Catalytic activity/Vol] 93 U/L Normal 46-116 [facility] Comment on above: Performed By: #### C MP #### [facility] [address] [place] [address] Dr. Francesca Ortiz ALT [Catalytic activity/Vol] 33 U/L Normal 14-59 [facility] Comment on above: Performed By: #### C MP #### [facility] [address] [place] [address] Dr. Francesca Ortiz Anion gap [Moles/Vol] 13.2 mmol/L Normal [facility] Comment on above: Performed By: #### C MP #### [facility] [address] [address] [address] Francesca Ortiz AST [Catalytic activity/Vol] 34 U/L Normal 15-37 [facility] Comment on above: Performed By: #### C MP #### [facility] [address] [address] [address] Francesca Ortiz Bilirubin [Mass/Vol] 0.5 mg/dL Normal 0.2-1.0 [facility] Comment on above: Performed By: #### C MP #### [facility] [address] [address] [address] Francesca Ortiz Calcium [Mass/Vol] 9.0 mg/dL Normal 8.5-10.1 [facility] Comment on above: Performed By: #### C MP #### [facility] [address] [address] [address] Francesca Ortiz Chloride [Moles/Vol] 104 mmol/L Normal 98-107 [facility] Comment on above: Performed By: #### C MP #### [facility] [address] [address] [address] Francesca Ortiz CO2 [Moles/Vol] 27.2 mmol/L Normal 21.0-32.0 [facility] Comment on above: Performed By: #### C MP #### [facility] [address] [address] [address] Francesca Ortiz Creatinine [Mass/Vol] 0.92 mg/dL Normal 0.55-1.02 [facility] Comment on above: Performed By: #### C MP #### [facility] [address] [address] [address] Francesca Ortiz EGFR-AF CITIZEN [place] >60 Normal >=60 [facility] Comment on above: Performed By: #### C MP #### [facility] [address] [address] [address] Francesca Ortiz EGFR-NON AF CITIZEN OF [place] =60 Normal >=60 [facility] Comment on above: Performed By: #### C MP #### [facility] [address] [address] [address] Francesca Ortiz Globulin (S) [Mass/Vol] 3.4 g/dL Normal [facility] Comment on above: Performed By: #### C MP #### [facility] [address] [address] [address] Francesca Ortiz Glucose [Mass/Vol] 113 mg/dL Critically high 74-106 T [facility] Comment on above: Performed By: #### C MP #### [facility] [address] [address] [address] Francesca Ortiz Potassium [Moles/Vol] 4.4 mmol/L Normal 3.5-5.1 [facility] Comment on above: Performed By: #### C MP #### [facility] [address] [place] [address] Dr. Francesca Ortiz Protein [Mass/Vol] 7.0 g/dL Normal 6.4-8.2 [facility] Comment on above: Performed By: #### C MP #### [facility] [address] [address] [address] Francesca Ortiz Sodium [Moles/Vol] 140 mmol/L Normal 136-145 [facility] Comment on above: Performed By: #### C MP #### [facility] [address] [address] [address] Francesca Ortiz Urea nitrogen [Mass/Vol] 17.0 mg/dL Normal 7.0-18.0 [facility] Comment on above: Performed By: #### C MP #### [facility] [address] [address] [address] Francesca Ortiz Urea nitrogen/Creatinine [Mass ratio] 18.5 mg/mg Normal [facility] Comment on above: Performed By: #### C MP #### [facility] [address] [place] [address] Dr. Francesca Ortiz XR HIP LT 2 [...] LUKE BLACKWOOD Date: 2022-05-26 15:55 Normal [facility] CBC AUTO DIFFon 05-10-2022 BASO # 0.0 103/ul Normal 0.0-0.1 [facility] Comment on above: Performed By: #### C BC #### [facility] [address] [address] [address] Francesca Ortiz Basophils/100 WBC (Bld) 0.4 % Normal 0.2-2.0 [facility] Comment on above: Performed By: #### C BC #### [facility] [address] [address] [address] Francesca Ortiz EO # 0.1 103/ul Normal 0.0-0.7 [facility] Comment on above: Performed By: #### C BC #### [facility] [address] [address] [address] Francesca Ortiz Eosinophils/100 WBC (Bld) 1.8 % Normal 0.9-7.0 [facility] Comment on above: Performed By: #### C BC #### [facility] [address] [address] [address] Francesca Ortiz Erythrocyte distribution width (RBC) [Ratio] 13.9 % Normal 11.0-15.0 [facility] Comment on above: Performed By: #### C BC #### [facility] [address] [address] [address] Francesca Ortiz Hematocrit (Bld) [Volume fraction] 36.8 % Normal 36.0-48.0 [facility] Comment on above: Performed By: #### C BC #### [facility] [address] [place] [address] Dr. Francesca Ortiz Hemoglobin (Bld) [Mass/Vol] 11.7 g/dL Critically low 12.0-16.0 [facility] Comment on above: Performed By: #### C BC #### [facility] [address] [place] [address] Dr. Francesca Ortiz IG # 0.01 10e3/ul Normal 0.00-0.03 [facility] Comment on above: Performed By: #### C BC #### [facility] [address] [place] [address] Dr. Francesca Ortiz IG % 0.2 % Normal 0.0-0.5 [facility] Comment on above: Performed By: #### C BC #### [facility] [address] [place] [address] Dr. Francesca Ortiz LYMPH # 1.6 103/ul Normal 1.2-3.8 [facility] Comment on above: Performed By: #### C BC #### [facility] [address] [place] [address] Dr. Francesca Ortiz Lymphocytes/100 WBC (Bld) 31.5 % Normal 20.5-60.0 [facility] Comment on above: Performed By: #### C BC #### [facility] [address] [place] [address] Dr. Francesca Ortiz MANUAL DIFF REQ NO Normal [facility] Comment on above: Performed By: #### C BC #### [facility] [address] [place] [address] Dr. Francesca Ortiz MCH (RBC) [Entitic mass] 30.0 pg Normal 26.7-34.0 [facility] Comment on above: Performed By: #### C BC #### [facility] [address] [place] [address] Dr. Francesca Ortiz MCHC (RBC) [Mass/Vol] 31.8 g/dL Normal 29.9-35.2 [facility] Comment on above: Performed By: #### C BC #### [facility] [address] [place] [address] Dr. Francesca Ortiz MCV (RBC) [Entitic vol] 94.4 fL Normal 81.0-99.0 [facility] Comment on above: Performed By: #### C BC #### [facility] [address] [place] [address] Dr. Francesca Ortiz MONO # 0.6 103/ul Normal 0.3-0.8 [facility] Comment on above: Performed By: #### C BC #### [facility] [address] [place] [address] Dr. Francesca Ortiz Monocytes/100 WBC (Bld) 11.0 % Normal 1.7-12.0 [facility] Comment on above: Performed By: #### C BC #### [facility] [address] [place] [address] Dr. Francesca Ortiz NEUT # 2.8 103/ul Normal 1.4-6.5 [facility] Comment on above: Performed By: #### C BC #### [facility] [address] [place] [address] Dr. Francesca Ortiz Neutrophils/100 WBC (Bld) 55.1 % Normal 43.0-75.0 [facility] Comment on above: Performed By: #### C BC #### [facility] [address] [place] [address] Dr. Francesca Ortiz Platelet mean volume (Bld) [Entitic vol] 11.0 fL Normal 9.5-13.5 [facility] Comment on above: Performed By: #### C BC #### [facility] [address] [place] [address] Dr. Francesca Ortiz PLT 136 103/ul Critically low 150-450 [facility] Comment on above: Performed By: #### C BC #### [facility] [address] [place] [address] Dr. Francesca Ortiz RBC 3.90 106/ul Critically low 4.20-5.40 [facility] Comment on above: Performed By: #### C BC #### [facility] [address] [place] [address] Dr. Francesca Ortiz WBC 5.1 103/ul Normal 4.0-11.0 [facility] Comment on above: Performed By: #### C BC #### [facility] [address] [address] [address] ABD/PELV W CONon [...] arthropathy. Diffuse demineralization. Electronically authenticated by: CHEN AZMORANO Date: 2022-05-10 15:30 Normal [facility] PROF CHEM 8 (BAS METB)on Anion gap [Moles/Vol] 9.9 mmol/L Normal [facility] Comment on above: Performed By: #### B MP #### [facility] [address] [address] [address] Francesca Ortiz Calcium [Mass/Vol] 9.5 mg/dL Normal 8.5-10.1 [facility] Comment on above: Performed By: #### B MP #### [facility] [address] [address] [address] Francesca Ortiz Chloride [Moles/Vol] 104 mmol/L Normal 98-107 [facility] Comment on above: Performed By: #### B MP #### [facility] [address] [address] [address] Francesca Ortiz CO2 [Moles/Vol] 27.2 mmol/L Normal 21.0-32.0 [facility] Comment on above: Performed By: #### B MP #### [facility] [address] [place] [address] Dr. Francesca Ortiz Creatinine [Mass/Vol] 0.88 mg/dL Normal 0.55-1.02 [facility] Comment on above: Performed By: #### B MP #### [facility] [address] [address] [address] Francesca Ortiz EGFR-AF CITIZEN [place] >60 Normal >=60 [facility] Comment on above: Performed By: #### B MP #### [facility] [address] [place] [address] Dr. Francesca Ortiz EGFR-NON AF CITIZEN OF [place] >60 Normal >=60 [facility] Comment on above: Performed By: #### B MP #### [facility] [address] [address] [address] Francesca Ortiz Glucose [Mass/Vol] 111 mg/dL Critically high 74-106 [facility] Comment on above: Performed By: #### B MP #### [facility] [address] [address] [address] Francesca Ortiz Potassium [Moles/Vol] 4.1 mmol/L Normal 3.5-5.1 [facility] Comment on above: Performed By: #### B MP #### [facility] [address] [address] [address] Francesca Ortiz Sodium [Moles/Vol] 137 mmol/L Normal 136-145 [facility] Comment on above: Performed By: #### B MP #### [facility] [address] [place], [place] [address] Dr. Francesca Ortiz Urea nitrogen [Mass/Vol] 17.0 mg/dL Normal 7.0-18.0 [facility] Comment on above: Performed By: #### B MP #### [facility] [address] [place], [place] [address] Dr. Francesca Ortiz Urea nitrogen/Creatinine [Mass ratio] 19.3 mg/mg Normal [facility] Comment on above: Performed By: #### B MP #### [facility] [id number] Francesca Ortiz GLUCOSE (POC DEVICE)on 11-14 GLUCOSE, POINT OF CARE 169 [facility] Interpretation and review of laboratory results Abnormal [facility] Operator [id number] [facility] HEMOGLOBIN & HEMATOCRITon Hematocrit (Bld) [Volume fraction] 34.9 % Low 36.0 - 48.0 % [facility] Hemoglobin (Bld) [Mass/Vol] 11.2 g/dL Low [facility] Interpretation and review of laboratory results Abnormal [facility] NOVEL CORONAVIRUS LAB 1 - NA SOPHARYNGEALon 11-14-2021 NARRATIVE -1 This test was performed using isothermal GIO and has been approved as Emergency Use Authorization (EUA) for the qualitative detection [id number] nucleic acid. [facility] SARS-CoV-2 (COVID-19) RNA GIO+probe Ql (Unsp spec) Not detected NOT DETECTED [facility] Comment on above: Negative results do [...] patient is critically ill or clinically deteriorating. [facility] PROTIME-INRon 11-14-2021 INR Coag (PPP) [Relative time] 1.15 {INR} [facility] Comment on above: 2.0-3.0 THERAPEUTIC RANGE 2.5-3.5 MECHANICAL VALVE RANGE Interpretation and review of laboratory results Abnormal [facility] [employer] PT Coag (PPP) [Time] 14.9 [facility] TYPE AND SCREEN - POSSIBLE T RANSFUSIONon 11-14-2021 ABO and Rh group Nom (Bld ) Positive [facility] ARM BAND NUMBER [id number] [facility] Blood group antibody screen Ql Negative [facility] [employer] EXPIRATION DATE 11/17/2021,2350 [facility] XR PELVIS AP ONLYon 11-14-20 IMPRESSION: Routine [...] or dislocations. IMPRESSION IMPRESSION: Routine postoperative changes. [facility] Radiology Study observation (narrative) [facility] XR PELVIS AP ONLYOrdered By: Mohini Ramirez on 11-14-2021 [facility] Work Phone: Complete Blood Counton 11-07 Erythrocyte distribution width (RBC) [Ratio] 17.0 % High 11.0-15.0 [facility] [facility] Comment on above: Performed By: #### C BC #### [facility] [address], [place] [id number] Hematocrit (Bld) [Volume fraction] 37.3 % Normal 35.0-47.0 [facility] Environmental Journalist Comment on above: Performed By: #### C BC #### [facility] [address], [place] [id number] Hemoglobin (Bld) [Mass/Vol] 11.6 g/dL Normal 11.6-15.5 [facility] Specialist Comment on above: Performed By: #### C BC #### [facility] [address], [place] [id number] MCH (RBC) [Entitic mass] 28.6 pg Normal 27.0-33.0 [facility] Specialist Comment on above: Performed By: #### C BC #### [facility] [address], [place] [id number] MCHC (RBC) [Mass/Vol] 31.1 g/dL Low 32.0-36.0 [facility] Specialist Comment on above: Performed By: #### C BC #### [facility] [address], [place] [id number] MCV (RBC) [Entitic vol] 92 fL Normal 80-100 [facility] Specialist Comment on above: Performed By: #### C BC #### [facility] [address], [place] [id number] Platelet mean volume (Bld) [Entitic vol] 11.10 fL Normal 7.50-12.50 [facility] Specialist Comment on above: Performed By: #### C BC #### [facility] [address], [place] [id number] Platelets (Bld) [#/Vol] 155 10*3/uL Normal 140-400 [facility] Specialist Comment on above: Performed By: #### C BC #### [facility] [address], [place] [id number] RBC (Bld) [#/Vol] 4.06 10*6/uL Normal 3.90-5.20 [facility] Specialist Comment on above: Performed By: #### C BC #### [facility] [address], [place] [id number] RDW-SD 57.8 fL High 37.0-50.0 [facility] Specialist Comment on above: Performed By: #### C BC #### [facility] [address], [place] [id number] WBC (Bld) [#/Vol] 5.6 10*3/uL Normal 3.8-11.0 [facility] [place] Environmental Journalist Comment on above: Performed By: #### C BC #### [facility] [address] [facility] [place] [id number] Vital Signs Date Time Vital Sign Value Performing Clinician Facility 10-08-2023 13:00-0500 Body height 157.48 cm Pb Sanabria Other [facility] Other 10-08-2023 13:00-0500 Body mass index (BMI) [Ratio] 32.55 kg/m2 Pb [facility] Other [facility] Other 10-08-2023 13:00-0500 Body weight 80.74 kg Pb Sanabria Other [facility] Other 10-08-2023 13:00-0500 Diastolic blood pressure 67 mm[Hg] Pb Sanabria Other [facility] Other 10-08-2023 13:00-0500 SaO2% (BldA) [Mass fraction] 95 % Pb [facility] Other [facility] Other 10-08-2023 13:00-0500 Systolic blood pressure 124 mm[Hg] Pb Sanabria Other [facility] Other 11-27-2022 15:05-0500 Body height 157.5 cm Cheryl Sahni ASSOCIATE-ELECTRIC DEICER INSPECTOR Work Phone: [employer] 11-27-2022 15:05-0500 Body mass index (BMI) [Ratio] 34.39 kg/m2 Cheryl Sahni ASSOCIATE-ELECTRIC DEICER INSPECTOR Work Phone: [employer] 11-27-2022 15:05-0500 Body temperature 97 [degF] Cheryl Maurice ASSOCIATE-ELECTRIC DEICER INSPECTOR Work Phone: [employer] 11-27-2022 15:05-0500 Body weight 85.28 kg Cheryl Sahni ASSOCIATE-ELECTRIC DEICER INSPECTOR Work Phone: [facility] 08-08-2022 08:48-0400 Body height 157.5 cm Marcus Calles MD Work Phone: [facility] 08-08-2022 08:48-0400 Body mass index (BMI) [Ratio] 34.56 kg/m2 Marcus Calles MD Work Phone: [facility] 08-08-2022 08:48-0400 Body temperature 98.49 [degF] Marcus Calles MD Work Phone: [facility] 08-08-2022 08:48-0400 Body weight 85.7 kg Marcus Calles MD Work Phone: [facility] 08-01-2022 11:19-0400 Body height 157.5 cm Jeyson Lew MD Work Phone: [facility] 08-01-2022 11:19-0400 Body mass index (BMI) [Ratio] 34.57 kg/m2 Jeyson Lew MD Work Phone: [facility] 08-01-2022 11:19-0400 Body weight 85.73 kg Jeyson Lew MD Work Phone: [facility] 04-06-2022 09:43-0400 Body height 157.5 cm Jeyson Lew MD Work Phone: [facility] 04-06-2022 09:43-0400 Body mass index (BMI) [Ratio] 34.57 kg/m2 Jeyson Lew MD Work Phone: [facility] 04-06-2022 09:43-0400 Body weight 85.73 kg Jeyson Lew MD Work Phone: [facility] 12-07-2021 14:22-0500 Body height 157.5 cm Cheryl Sahni ASSOCIATE-ELECTRIC DEICER INSPECTOR Work Phone: [facility] 12-07-2021 14:22-0500 Body mass index (BMI) [Ratio] 34.57 kg/m2 Cheryl Sahni ASSOCIATE-ELECTRIC DEICER INSPECTOR Work Phone: [employer] 12-07-2021 14:22-0500 Body temperature 98.2 [degF] Cheryl Sahni APRN-ELECTRIC DEICER INSPECTOR Work Phone: [employer] 12-07-2021 14:22-0500 Body weight 85.73 kg Cheryl Sahni ASSOCIATE-ELECTRIC DEICER INSPECTOR Work Phone: [employer] 11-14-2021 18:30-0500 Diastolic blood pressure 68 mm[Hg] Jeyson Lew MD Work Phone: [facility] 11-14-2021 18:30-0500 Heart rate 73 /min Jeyson Lew MD Work Phone: [employer] 11-14-2021 18:30-0500 Respiratory rate 20 /min Jeyson Lew MD Work Phone: [employer] 11-14-2021 18:30-0500 SaO2% (BldA) [Mass fraction] 96 % Jeyson Lew MD Work Phone: [employer] 11-14-2021 18:30-0500 Systolic blood pressure 154 mm[Hg] Jeyson Lew MD Work Phone: [employer] 11-14-2021 12:44-0500 Body temperature 98.2 [degF] Jeyson Lew MD Work Phone: [employer] 11-14-2021 08:23-0500 Body height 157.5 cm Jeyson Lew MD Work Phone: [employer] 11-14-2021 08:23-0500 Body mass index (BMI) [Ratio] 34.39 kg/m2 Jeyson Lew MD Work Phone: [employer] 11-14-2021 08:23-0500 Body weight 85.28 kg Jeyson Lew MD Work Phone: [employer] 10-03-2021 14:00-0400 Body height 157.48 cm Pb Sanabria Other [facility] Other 10-03-2021 14:00-0400 Body mass index (BMI) [Ratio] 35.3 kg/m2 Pb Daniele Other [facility] Other 10-03-2021 14:00-0400 Body temperature 97.7 [degF] Pb Daniele Other [facility] Other 10-03-2021 14:00-0400 Body weight 87.54 kg Pb Daniele Other [facility] Other 10-03-2021 14:00-0400 Diastolic blood pressure 71 mm[Hg] Pb Daniele Other [facility] Other 10-03-2021 14:00-0400 SaO2% (BldA) [Mass fraction] 98 % Pb Daniele Other [facility] Other 10-03-2021 14:00-0400 Systolic blood pressure 146 mm[Hg] Pb Daniele Other [facility] Other Encounters Encounter Date Encounter Type Care Provider Facility Start: 11-04-2023 End: 11-04-2023 ambulatory JOSE CRUZ H TIMMIS Not Available Start: 10-08-2023 Office outpatient vi sit 25 minutes Pb [facility] Start: 10-08-2023 End: 10-08-2023 ambulatory II Tyshawn Hickman Work Phone: [facility] Work Phone: Start: 10-08-2023 End: 10-08-2023 Patient encounter procedure II Tyshawn Hickman Work Phone: [facility] Work Phone: Start: 02-28-2023 End: 03-01-[address] TYSHAWN HICKMAN Facility: Start: 12-12-2022 ambulatory CHERYL MAURICE [facility] Start: 11-27-2022 ambulatory [facility] Start: 11-27-2022 End: 11-27-2022 Office outpatient visit 15 minutes Cheryl Sahni ASSOCIATE-ELECTRIC DEICER INSPECTOR Work Phone: [facility] Comment on above: Primary osteoarthrit is of one hip, left (Primary Dx) Start: 11-27-2022 End: 11-27-2022 Subsequent hospital visit by physician Cheryl Sahni ASSOCIATE-ELECTRIC DEICER INSPECTOR Work Phone: [facility] Start: 10-03-2022 End: 10-03-[address] ROLA IVORY Facility:[facility] Start: 09-17-2022 End: 09-17-2022 ambulatory ALEXANDRA DOE . Facility:[facility] Start: 08-08-2022 ambulatory [facility] Start: 08-08-2022 End: 08-08-2022 Office outpatient new 30 minutes Marcus Calles MD Work Phone: [facility] Comment on above: Trigger finger of le ft hand, unspecified finger (Primary Dx) Start: 08-01-2022 ambulatory [facility] Start: 08-01-2022 End: 08-01-2022 Office outpatient visit 15 minutes Jeyson Lew MD Work Phone: [facility] Comment on above: Hx of total hip arth roplasty, left (Primary Dx); Pain due to left hip joint prosthesis, sequela Start: 08-01-2022 End: 08-01-2022 Subsequent hospital visit by physician Jeyson Lew MD Work Phone: [facility] Start: 06-07-2022 End: 06-08-[address] TYSHAWN HICKMAN Facility:[facility] Start: 05-28-2022 End: 05-29-[address] TYSHAWN HICKMAN Facility:[facility] Start: 05-26-2022 End: 05-26-[address] TYSHAWN HICKMAN Facility:[facility] Start: 05-10-2022 End: 05-10-[address] APRIL LÓPEZ . Facility:[facility] Start: 04-06-2022 ambulatory JEYSON LEW [facility] Start: 04-06-2022 End: 04-06-2022 Office outpatient visit 15 minutes Jeyson Lew MD Work Phone: [facility] Comment on above: Hx of total hip arth roplasty, left (Primary Dx) Start: 04-06-2022 End: 04-06-2022 Subsequent hospital visit by physician Jeyson Lew MD Work Phone: [facility] Start: 01-10-2022 [facility] Start: 01-10-2022 End: 01-19-2022 Postop follow up visit related to original px [facility] ASSOCIATE-ELECTRIC DEICER INSPECTOR Work Phone: [facility] Comment on above: Hx of total hip arth roplasty, left (Primary Dx) Start: 01-10-2022 [facility] Start: 12-07-2021 End: 12-07-2021 Postop follow up visit related to original px Jeyson Lew MD Work Phone: [facility] Comment on above: Hx of total hip arth roplasty, left (Primary Dx) Start: 12-07-2021 End: 12-07-2021 Subsequent hospital visit by physician Cheryl Sahni ASSOCIATE-ELECTRIC DEICER INSPECTOR Work Phone: [facility] Start: 11-14-2021 End: 11-14-2021 Patient encounter status Jeyson Lew MD Work Phone: [facility] Start: 11-14-2021 End: 11-14-2021 Subsequent hospital visit by physician Jeyson Lew MD Work Phone: [facility] Comment on above: Primary osteoarthrit is of left hip Start: 11-06-2021 End: 11-06-2021 Admission to establishment Santiago Deysi Ont Pat Testing [facility] Pre [facility]mission Comment on above: Preop testing (Prima ry Dx) Start: 11-06-2021 End: 11-06-2021 Patient encounter status Santiago Deysi Ont Pat Testing [facility] Start: 10-03-2021 End: 10-03-2021 ambulatory Pb Sanabria Other [facility] Other Start: 10-03-2021 Office outpatient vi sit 25 minutes [facility] Procedures Date Procedure Procedure Detail Performing Clinician Start: 08-08-2022 Injection 1 tendon sheath/ligament aponeurosis Marcus Calles MD Work Phone: Start: 11-14-2021 Blood count hematocrit Cheryl Sahni ASSOCIATE-ELECTRIC DEICER INSPECTOR Work Phone: Start: 11-14-2021 Gluc bld gluc mntr d ev cleared fda spec home use Jeyson Lew MD Work Phone: Start: 11-14-2021 Radiologic examinati on pelvis 1/2 views Cheryl Sahni ASSOCIATE-ELECTRIC DEICER INSPECTOR Work Phone: Start: 11-14-2021 Iadna nos amplified probe tq each organism Cheryl Sahni ASSOCIATE-ELECTRIC DEICER INSPECTOR Work Phone: Start: 11-14-2021 Blood typing serologic abo Jeyson Lew MD Work Phone: Start: 11-14-2021 Prothrombin time Jeyson Lew MD Work Phone: Plan of Treatment Date Care Activity Detail Author Start: 08-03-2024 Tetanus vaccination TETANUS [facility] Start: 11-14-2022 End: 11-14-2022 Patient encounter procedure 11/14/2022 Office Visit Orthopaedics Cheryl Sahni APRN-ELECTRIC DEICER INSPECTOR [address] [place] [address] [facility] Start: 10-10-2022 End: 10-10-2022 Patient encounter procedure 10/10/2022 Office Visit Orthopaedics Marcus Calles MD [address] [place] [id number] [facility] Start: 08-31-2022 Potassium [Moles/vol ume] in Serum or Plasma POTASSIUM [facility] Start: 08-08-2022 End: 08-08-2022 Patient encounter procedure 08/08/2022 Office Visit Orthopaedics Marcus Calles MD [address] [facility] [place] [address] [facility] Start: 08-02-2022 Influenza vaccination INFLUENZA VACC INE (#1) [facility] Start: 03-15-2022 End: 03-15-2022 Patient encounter procedure 03/15/2022 Office Visit Orthopaedics Jeyson Lew MD [address] [place] [id number] [facility] Start: 12-28-2021 End: 12-28-2021 Patient encounter procedure [facility] Start: 12-07-2021 End: 12-07-2021 Patient encounter procedure 12/07/2021 Office Visit Orthopaedics Cheryl Sahni APRN-ELECTRIC DEICER INSPECTOR [address] [place] [id number] [facility] Start: 11-14-2021 End: 11-14-2021 Admission to same day surgery center 11/14/2021 Surgery Multispecialty Jeyson Lew MD [address] [place] [id number] ARTHROPLASTY HIP TOTAL AL - LEFT [facility] Comment on above: ARTHROPLASTY HIP TOT AL AL - LEFT Start: 11-14-2021 End: 11-14-2021 Arthrp acetblr/prox fem prostc agrft/algrft ARTHROPLASTY HIP TOTAL LATERAL APPROACH Primary osteoarthritis of left hip 11/14/2021 10:00 AM EST [facility] Start: 11-14-2021 Subsequent hospital visit by physician 11/14/2021 Hospital Encounter Multispecialty Jeyson Lew MD [address] [place] [id number] Primary osteoarthritis of left hip [facility] Comment on above: Primary osteoarthrit is of left hip Start: 09-16-2021 COVID-19 VACCINE (3 - Booster for Moderna series) COVID-19 VACCINE (3 - Booster for Moderna series) [facility] Start: 08-17-2021 COVID-19 VACCINE (3 - Booster for Moderna series) COVID-19 VACCINE (3 - Booster for Moderna series) [facility] Start: 08-02-2021 Influenza vaccination INFLUENZA VACC INE (#1) [facility] Start: 05-12-2021 COVID-19 VACCINE (3 - Booster for Moderna series) COVID-19 VACCINE (3 - Booster for Moderna series) [facility] Start: 10-09-2019 Pneumococcal vaccination PNEUM OCOCCAL VACCINE SERIES (#3) [facility] Start: 2017 Pneumococcal vaccination [facility] Start: 2002 Zoster vaccine hzv l bolivar for subcutaneous use ZOSTER (SHINGLES) VACCINE (1 of 2) [facility] Start: 1997 Colonoscopy COLORECTAL CAN CER SCREENING DISCUSSION [facility] Start: 1997 Screening for malign ant neoplasm of colon COLORECTAL CANCER SCREENING DISCUSSION [facility] Start: 1992 Fasting lipid profile LIPID SCREENIN G [facility] Start: 1992 Lipid panel LIPID SCREENING [facility] Start: 1992 Screening for malign ant neoplasm of breast MAMMOGRAM SCREENING DISCUSSION [facility] Start: 1992 Screening mammography MAMMOGRA M SCREENING DISCUSSION [facility] Start: 1973 Screening for malign ant neoplasm of cervix CERVICAL CANCER SCREENING DISCUSSION [facility] Start: 1971 Third diphtheria, tetanus and acellular pertussis (DTaP) vaccination TDAP (ADULT) [facility] Start: 1970 Tetanus vaccination TETANUS [facility] Start: 1952 Hepatitis C antibody , confirmatory test HEPATITIS C VIRUS SCREENING [facility] Start: 1952 Hepatitis C screening HEPATITI S C VIRUS SCREENING [facility] Start: 1950 Screening for osteoporosis DEXA SCAN DISCUSSION [facility] End: 11-14-2021 Radiography of hip [facility] Work Phone: Comment on above: One Time for 1 Occur rences starting 11/14/2021 until 11/14/2021 Skeletal X-ray of pe lvis and hip XR HIP WITH PELVIS LEFT Imaging Routine Hx of total hip arthroplasty, left 12/07/2021 1:53 [facility] Skeletal X-ray of pe lvis and hip XR HIP WITH PELVIS LEFT Imaging Routine Hx of total hip arthroplasty, left 01/16/2022 9:52 AM [facility] SURGICAL PATHOLOGY REQUEST SURGICAL PATHOLOGY REQUEST Surg Path Routine Primary osteoarthritis of left hip Release Upon Ordering for 1 Occurrences starting 11/14/2021 [facility] Comment on above: Release Upon Orderin g for 1 Occurrences starting 11/14/2021 XR Pelvis and Hip - left Views XR HIP WITH PELVIS LEFT Imaging Routine Hx of total hip arthroplasty, left 04/06/2022 8:[facility] Work Phone: XR Pelvis and Hip - left Views XR HIP WITH PELVIS LEFT Imaging Routine Hx of total hip arthroplasty, left 08/01/2022 10:18 AM [facility] XR Pelvis and Hip - left Views XR HIP WITH PELVIS LEFT Imaging Routine Hx of total hip arthroplasty, left 11/27/2022 2:46 PM [facility] Immunizations Immunization Date Immunization Notes Care Provider Cherelle santo 09-06-2021 influenza virus vaccine, unspecified formulation Jeyson Lew MD Work Phone: [facility] 03-17-2021 COVID-19 mRNA-1273 (Moderna) NAYANA Hickman Work Phone: [facility] 02-17-2021 COVID-19 mRNA-1273 (Moderna) NAYANA Hickman Work Phone: [facility] 08-31-2020 influenza virus vaccine, unspecified formulation Santiago Deysi Ont Pat Testing [facility] Payers Date Payer Category Payer Medicare [id number] 2021 Self-pay [id number] 2021 Medicare MEDICARE MEDICAR E A AND B [id number] 2021-Present [address] [place] [address] [id number] 2021 Medicare MEDICARE MEDICAR E A AND B [id number] 2021-Present [address] [place] [address] [id number]. [id number] 2019 Unknown GENERIC PAYOR ME DICARE SUPPLEMENT [id number] 2019-Present [phone] [address] [place] [address] [id number] [id number]. [id number] 2019 Unknown GENERIC PAYOR ME DICARE SUPPLEMENT [id number] 2019-Present [phone] [place] [address] 1.2.840.168764.1.13.172.2.7.3. [id number] 1959 Medicare [id number] [id number] 1959 Medicare [id number] 1959 Unknown [id number] 1959 Unknown [id number] 1952 Unknown [id number] 01.17.840.1.828058.3.579.2.98 1952 Unknown [id number] 2.840.1.581227.3.579.2.983 1952 Unknown [id number] 2.16840.1.998062.3.579.2.983 1952 Unknown [id number] 2.16840.1.969622.3.579.2.983 1952 Unknown [id number] 2.840.1.731083.3.579.2.983 1952 Unknown [id number] 2.16.840.1.851696.3.579.2.983 1952 Unknown [id number] 2.16.840.1.503843.3.579.2.983 1952 Unknown [id number] 2.16.840.1.769455.3.579.2.983 1952 Unknown [id number] 2.16.840.1.963173.3.579.2.983 1952 Unknown [id number] 2.16.840.1.951221.3.579.2.983 1952 Unknown [id number] 2.16.840.1.396577.3.579.2.593 1952 Unknown [id number] 2.16.840.1.534862.3.579.2.593 1952 Unknown [id number] 2.16.840.1.893116.3.579.2.593 1952 Unknown [id number] 2.16.840.1.845573.3.579.2.593 1952 Unknown [id number] 2.16.840.1.666894.3.579.2.593 1952 Unknown [id number] 2.16.840.1.967402.3.579.2.593 1952 Unknown [id number] 2.16.840.1.765624.3.579.2.593 1952 Unknown [id number] 2.16.840.1.888648.3.579.2.1259 Unknown [place] BC/BS [id number] Unknown [id number] 2.16.840.1.098119.3.579.2.531 Social History Date Type Detail Facility Start: 08-10-2021 End: 11-03-2021 Tobacco smoking status NHIS Ex-smoker [facility] Start: 08-10-2021 End: 11-27-2022 Tobacco use and exposure Smokeless tobacco non-user [facility] [employer] [facility] Start: 11-02-2021 End: 11-27-2022 Alcohol intake Lifetime non-drinker (finding) [facility] Start: 08-10-2021 History SDOH [facility] Start: 08-10-2021 End: 11-27-2022 Tobacco Comment Quit 1999 [facility] Start: 1950 Sex Assigned At Not on file A [employer] Exposure to SARS-CoV -2 (event) Not sure [facility] Sex Assigned At Sex Assigned At Bir th [facility] Other History of tobacco use Current smoker [facility] [employer] Start: 1950 Sex Assigned At Female F [facility] Medical Equipment Procedure Code Equipment Code Equipment Original Text Equipment Identifier Dates [place] Gripton Acetabular Shell Sector 54mm Od [id number] Start: 11-14-2021 Altrx Polyethyle ne Acetabular Liner Neutral 36mm Id 54 Od [id number] Start: 11-14-2021 Femoral Stem Taper [employer]is [employer]ix Hip Prosthesis Cementless Size 6 Std Collar [id number] Start: 11-14-2021 Biolox Delta Cer amic Femoral Head +1.5 36mm Gracie 11/14 Taper [id number] Start: 11-14-2021 Suture [place], Biocompositie Corkscrew Ft, Vented With 1.3mm White/Blue And White/Black Suture Tape [id number] Start: 11-14-2021 Suture [place], Biocompositive Swivelock C, Closed Eyelet With #2 Fiberwire, 4.75 X 19.1mm [id number] Start: 11-14-2021 Suture [place], Biocompositive Swivelock C, Closed Eyelet With #2 [...] - G25.81) Not currently an active problem [facility] Other 12-27-2022 History of Present illness Narrative* Chrystal Geovanny - 11/27/2022 3:20 PM EST Ortho Nurse - Established Patient Intake Room#: 5 Date: 11/27/2022 3:07 PM Patient: Siria Petty MR#: [id number] : 1950 Age: 72 y.o. 1yr L [...] Take 1 tablet by mouth daily. nystatin-triamcinolone 383270-4.1 UNIT/GM-% Ointment as needed. omeprazole 20 MG [...] by mouth daily., Disp: , Rfl: nystatin-triamcinolone 188967-3.1 UNIT/GM-% Ointment, as needed. , Disp: , [...] has No Known Allergies. * Cheryl Sahni APRN-ELECTRIC DEICER INSPECTOR - 11/27/2022 3:20 PM EST HPI: Patient [...] 11/27/2022 3:07 PM Patient: Siria Petty MR#: [id number] : 1950 Age: 72 y.o. 1yr L [...] Take 1 tablet by mouth daily. nystatin-triamcinolone 512184-7.1 UNIT/GM-% Ointment as needed. omeprazole 20 MG [...] by mouth daily., Disp: , Rfl: nystatin-triamcinolone 809215-9.1 UNIT/GM-% Ointment, as needed. , Disp: , [...] has No Known Allergies. documented in this [facility]09-07-2022 History of Present illness Narrative* Heather Lane [...] by mouth daily., Disp: , Rfl: nystatin-triamcinolone 000262-5.1 UNIT/GM-% Ointment, as needed. , Disp: , [...] in about 2 months. documented in this [facility]08-31-2022 History of Present illness Narrative* Jaswant Baldwin LPN - 08/01/2022 10:30 AM EDT Ortho Nurse - Established Patient Intake Room#: 3 Left TILA 11-14-21, had a fall on 05-10-22 went to [facility] and was told everything looked good and was given pain medication which she is done with. Before fall she states she was doing great with occasional pain of 2, since her fall the pain radiates down to her foot and is a 10 Date: 08/01/2022 11:26 AM Patient: Siria Petty MR#: [id number] : 1950 Age: 72 y.o. Referring Physician: [...] Take 1 tablet by mouth daily. nystatin-triamcinolone 258672-6.1 UNIT/GM-% Ointment as needed. acetaminophen 325 MG [...] by mouth daily., Disp: , Rfl: nystatin-triamcinolone 491055-2.1 UNIT/GM-% Ointment, as needed. , Disp: , [...] a fall on 05/10/21, [facility] with reported unremarkable work up. She states [...] had a fall on 05-10-22 went to [facility] and was told everything looked good and was given pain medication which she is done with. Before fall she states she was doing great with occasional pain of 2, since her fall the pain radiates down to her foot and is a 10 Date: 08/01/2022 11:26 AM Patient: Siria Petty MR#: [id number] : 1950 Age: 72 y.o. Referring Physician: [...] Take 1 tablet by mouth daily. nystatin-triamcinolone 472736-6.1 UNIT/GM-% Ointment as needed. acetaminophen 325 MG [...] by mouth daily., Disp: , Rfl: nystatin-triamcinolone 175626-4.1 UNIT/GM-% Ointment, as needed. , Disp: , [...] has No Known Allergies. documented in this [facility]05-06-2022 History of Present illness Narrative* Jaswant Baldwin LPN - 04/06/2022 9:10 AM EDT Ortho Nurse - Established Patient Intake Room#: 1 4+ month left TILA A/L, some pain of 2, doing great Date: 04/06/2022 9:49 AM Patient: Siria Petty MR#: [id number] : 1950 Age: 71 y.o. Referring Physician: [...] Take 1 tablet by mouth daily. nystatin-triamcinolone 868113-0.1 UNIT/GM-% Ointment as needed. acetaminophen 325 MG [...] by mouth daily., Disp: , Rfl: nystatin-triamcinolone 835363-9.1 UNIT/GM-% Ointment, as needed. , Disp: , [...] 04/06/2022 9:49 AM Patient: Siria Petty MR#: [id number] : 1950 Age: 71 y.o. Referring Physician: [...] Take 1 tablet by mouth daily. nystatin-triamcinolone 027884-3.1 UNIT/GM-% Ointment as needed. acetaminophen 325 MG [...] by mouth daily., Disp: , Rfl: nystatin-triamcinolone 367508-9.1 UNIT/GM-% Ointment, as needed. , Disp: , [...] has No Known Allergies. documented in this [facility]02-09-2022 History of Present illness Narrative* Cheryl Sahni APRN-ELECTRIC DEICER INSPECTOR - 01/10/2022 2:20 PM EST SUBJECTIVE: Siria [...] scheduled 4-month appointment or sooner as necessary. (DOC:[id number]) I have reviewed the findings of the clinical software support representative and agree with their assessment. EDY Parra No notes on file documented in this [facility]01-06-2022 History of Present illness Narrative* EDY Parra [...] visit. All pertinant portions of the clinical software support representative documentation was reviewed. EDY Parra I have reviewed the findings of the clinical software support representative and agree with their assessment. EDY Parra Ortho Nurse Established Patient Intake Room#: 4 Date: 12/07/2021 2:25 PM Patient: Siria Petty MR#: [id number] : 1950 Age: 71 y.o. 3wk S/P [...] Take 1 tablet by mouth daily. nystatin-triamcinolone 971228-3.1 UNIT/GM-% Ointment as needed. omeprazole 20 MG [...] by mouth daily., Disp: , Rfl: nystatin-triamcinolone 716291-7.1 UNIT/GM-% Ointment, as needed. , Disp: , [...] 12/07/2021 2:25 PM Patient: Siria Petty MR#: [id number] : 1950 Age: 71 y.o. 3wk S/P [...] Take 1 tablet by mouth daily. nystatin-triamcinolone 197007-9.1 UNIT/GM-% Ointment as needed. omeprazole 20 MG [...] by mouth daily., Disp: , Rfl: nystatin-triamcinolone 988278-6.1 UNIT/GM-% Ointment, as needed. , Disp: , [...] has No Known Allergies. [facility] Nurse Note* Yadira Salas RN - [...] - 11/14/2021 4:30 PM EST Cheryl Maurice ELECTRIC DEICER INSPECTOR notified of Hgb Hct results,no further orders. * Yadira Salas RN - 11/14/2021 3:30 PM EST Took 50% of regular tray w/o nausea. * Nicole Laurent RN - 11/14/2021 12:47 PM EST Patient transferred to PACU via bed with this nurse and LEAD SCIENTIST. Bedside report given to ARTEMIO Quinones. * Nicole Laurent RN - 11/14/2021 11:36 AM EST OR room temp: 66.3 OR room humidity: 50 documented in this [facility]12-14-2021 History of Present illness Narrative* Trisha Shook, [...] Transfer Skill: Sit To Stand, Rehab Eval [place] (Sit-Stand Transfers) contact guard Physical Assist/Nonphysical Assist: Sit/Stand 1 person assist Weight-Bearing Restrictions: Sit/Stand toe touch weight-bearing Assistive Device For Transfer: Sit/Stand 2 wheeled walker Gait Skills, PT Eval Level of [place]: Gait contact guard Physical Assist/Nonphysical Assist: Gait 1 person assist Weight-Bearing Restrictions: Gait toe touch weight-bearing Assistive Device For Transfer: Gait 2 wheeled walker Gait Distance 50 feet Gait Analysis, PT Eval Gait Pattern Used swing-to gait Stair Negotiation [place] Level: Stair Negotiation contact guard assist Physical [...] Supine to Sit, Rehab Eval Level of [place]: Supine/Sit stand-by assist Physical Assist/Nonphysical Assist: Supine/Sit 1 person assist;verbal cues Transfer Skill: Sit to Stand, Rehab Eval Level of [place]: Sit/Stand contact guard Physical Assist/Nonphysical Assist: Sit/Stand 1 person assist Weight-Bearing Restrictions: Sit/Stand touch down weight-bearing Assistive Device for Transfer: Sit/Stand wheeled walker Upper Body Dressing Level of [place] independent Physical Assist/Nonphysical Assist set-up required Lower Body Dressing Level of [place] moderate assist (50% patients effort) Physical Assist/Nonphysical Assist 1 person assist (including TONIA hose) Assistive Device director medicare sales General Therapy Interventions Planned Therapy Interventions (OT Eval) ADL retraining;balance training;transfer training Clinical Impression Co-evaluation/co-treatment performed? Yes, combination of simultaneous billable and non-billable treatment Patient Instruction Pt instructed on LB dressing techniques utilizing director medicare sales to rodo underwear andshorts in sitting and [...] (OT Eval) bathing equipment;dressing equipment;raised toilet seat;tub bench;director medicare sales Today's Treatment Included Pt demonstrates moderate to [...] hygiene training Therapist Information License # [id number] 1. Pt will complete LB dressing min [...] 0.86 Docusate 100mg 4.00 APAP 325mg 4.00 [place] 5-325mg 1.80 Tramadol 50mg 1.35 Omeprazole 20mg 2.90 Ondansetron 4mg 4.00 Total $ 20.91 Patient Education Counseled patient on appropriate use and side effects of medications. Medications to be picked up in pharmacy Thaddeus Wallis PharmD [facility] [phone] * OSMEL Frazier - 11/14/2021 3:31 PM EST FEATHER STITCHER met with patient and spouse. FEATHER STITCHER explained that it was recommended for the patient to dischargehome with home health services for CBC lab draw on 11/16 as well as 1 week of therapy for safety precaution awareness. FEATHER STITCHER was able to arrange services through [facility]. FEATHER STITCHER explained they would contact her to arrange [...] Supine to Sit, Rehab Eval Level of [place]: Supine/Sit minimum assist (75% patients effort) Physical Assist/Nonphysical Assist: Supine/Sit 1 person assist Transfer Skill: Sit To Stand, Rehab Eval [place] (Sit-Stand Transfers) contact guard Physical Assist/Nonphysical Assist: Sit/Stand 1 person assist Weight-Bearing Restrictions: Sit/Stand toe touch weight-bearing Assistive Device For Transfer: Sit/Stand 2 wheeled walker Gait Skills, PT Eval Level of [place]: Gait contact guard Physical Assist/Nonphysical Assist: Gait [...] weight bearing status and use of leg wheel inspector. Pt performed ankle pumps and quad sets [...] given as rescue opiate. documented in this [facility]12-14-2021 Hospital Discharge instructions* Instructions* Raina Maurice RN [...] pillow between legs Hip Precautions: Contact Office ([phone]) if: > Any falls or injuries > [...] [place] office is closed, you may call [phone] where you will be connected with an after hours orthopedic nurse that will be able to answer your questions. documented in this encounterSed[facility] HospitalBioformix [id number] Miscellaneous Notes* Nursing Notes - Joni Ly RN - 11/14/2021 1:14 PM EST Discharged from PACU in stable condition at this time. Transported via cart to [facility]. Cart placed in lowest position. Call light within reach. Pulse ox monitor on pt with alarms set. Report radha Salas Rn. documented in this encounterSed[facility] HospitalBioform[facility] [id number] Instructions* Patient Instructions* Rocio Peña RN - 11/06/2021 7:[address] Lew's office will call you for your arrival time, 1-2 business days before your scheduled surgery. Please review your surgery checklist and bring your guide or booklet the day of surgery. Pre-Admission Testing Dept. [phone] Call if you have any changes in [...] Yellow - take the day of surgery Mcroberts - hold according to the doctor's instructions [...] YOUR SURGERY Last Dose: Date Time nystatin-triamcinolone 569187-8.1 UNIT/GM-% Ointment NEEDED CONTINUE, but DO NOT take the morning of surgery. Last Dose: Date Time documented in this [facility]11-02-2021 Evaluation note* Encounter Date Diagnosis Assessment Notes [...] fatigue, but may also predispose to RLS [employer] Other Evaluation note* Diagnosis Preop testing- Primary Preoperative examination, unspecified Primary osteoarthritis of left hip Primary localized osteoarthrosis, pelvic region and thigh documented in this encounter eSoftEvaluation note* Diagnosis Preop testing- Primary Preoperative examination, unspecified Abnormal coagulation profile Abnormal coagulation profile Encounter for preoperative screening laboratory testing for COVID-19 virus Primary osteoarthritis of left hip Primary localized osteoarthrosis, pelvic region and thigh Acute postoperative pain of left knee documented in this encounter eSoftEvaluation note* Diagnosis Hx of total hip arthroplasty, left- Primary Hx of total hip arthroplasty, left- Primary documented in this encounter [employer] System[facility] note* Diagnosis Hx of total hip arthroplasty, left- Primary documented in this encounter eSoftEvaluation note* Diagnosis Hx of total hip arthroplasty, left- Primary documented in this encounter [employer]SoftEvaluation note* Diagnosis Hx of total hip arthroplasty, left- Primary Pain due to left hip joint prosthesis, sequela documented in this encounter [employer]Evaluation note* Diagnosis Trigger finger of left hand, unspecified finger- Primary documented in this encounter [employer] SystemEvaluation note* Diagnosis Primary osteoarthritis of one hip, left- Primary documented in this encounter [facility]Bio[facility] SystemEvaluation noteNo assessment information availablePremier Health Ctr Work Phone: History general Narrative - Reported* Type Description Date Medical History COPD Medical History ADRIANNA Medical History diastolic CHF with preserved EF Medical History Type II diabetes diet controlled [employer]ikl[employer] Other History of Present illness Narrative* Rashmi [...] HEARING AIDS OR ANY TROUBLE HEARING [place] DIFFICULTY SWALLOWING no DENTAL APPLIANCES OR PROBLEMS (dentures, partials, loose teeth, missing teeth, broken teeth, caps or crowns) Dentures full BETA DONNIE USE yes STEROIDS IN THE PAST 2 YEARS no HISTORY OF BLOOD TRANSFUSION/REACTION no CULTURAL OR ROMAN CATHOLIC BELIEFS THAT WILL AFFECT CARE no DIETARY [...] verbalized understanding of instructions. documented in this encounterWhite HospitalReason for referral (narrative)* Consultation (Routine) - New Request Specialty Diagnoses / Procedures Referred By Contac t Referred To Contact Orthopaedics Diagnoses Hx of total hip arthroplasty, left Jeyson Lew MD [address] [place] [phone] Marcus Calles MD [address] [place] [address] Referral ID Status Reason Start Date Expiration Date V isits Requested Visits Authorized [id number] New Request 08/01/2022 08/26/2023 1 1 * Medication Prior Authorization - Closed Specialty Diagnoses / Procedures [facility]erred To Contact Jeyson Lew MD [address] [place] [address] Referral ID Status Reason Start Date Expiration Date Visits Re quested Visits Authorized [id number] Closed 1 1 * Adjunctive Therapy (Routine) - New Request Specialty Diagnoses / Procedures Referred By Contac t Referred To Contact Physical Therapy Diagnoses Hx of total hip arthroplasty, left Pain due to left hip joint prosthesis, sequela Jeyson Lew MD [address] [place] [address] Referral ID Status Reason Start Date Expiration Date V isits Requested Visits Authorized [id number] New Request 08/01/2022 08/26/2023 1 1 Scheduling Instructions . * Diagnostic X-Ray (Routine) - New Request Specialty Diagnoses / Procedures Referred By Contac t Referred To Contact Diagnoses Hx of total hip arthroplasty, left Procedures XR HIP WITH PELVIS LEFT Jeyson Lew MD [address] [place] [address] Referral ID Status Reason Start Date Expiration Date V isits Requested Visits Authorized [id number] New Request 07/20/2022 08/14/2023 1 1 [employer] [facility] for visit Narrative* Auth/Cert Specialty Diagnoses / Procedures Referred By Raúlac t Referred To Contact Diagnoses Primary osteoarthritis of left hip Primary osteoarthritis of left hip [M16.12] Procedures MA TOTAL HIP ARTHROPLASTY ARTHROPLASTY HIP TOTAL LATERAL APPROACH Jeyson Lew MD [address] [place] [address] Referral ID Status Reason Start Date Expiration Date Visits Re quested Visits Authorized [id number] 10/18/2021 1 1 [employer] [facility] Advance Directives No Advanced Directives Records [...] WITH PELVIS LEFT Cheryl Sahni APRN-CNP [address] [place] [address] Referral ID Status Reason Start Date Expiration Date V isits Requested Visits Authorized [id number] New Request 11/30/2021 12/25/2022 1 1 Referral ID Status Reason Start Date Expiration Date V isits Requested Visits Authorized [id number] New Request 01/16/2022 02/10/2023 1 1 Specialty Diagnoses / Procedures Referred By Raúlac t Referred To Contact Diagnoses Hx of total hip arthroplasty, left Procedures XR HIP WITH PELVIS LEFT Jeyson Lew MD [address] [place] [address] Referral ID Status Reason Start Date Expiration Date V isits Requested Visits Authorized [id number] New Request 03/30/2022 04/24/2023 1 1 Summary [...] XR HIP WITH PELVIS LEFT Cheryl Sahni, ASSOCIATE-LUIS [address] [place] [address] Referral ID Status Reason Start Date Expiration Date V isits Requested Visits Authorized [id number] New Request 11/30/2021 12/25/2022 1 1 Reason Comments Post Op Visit Specialty Diagnoses / Procedures Referred By Contac t Referred To Contact Diagnoses Hx of total hip arthroplasty, left Procedures XR HIP WITH PELVIS LEFT Jeyson Lew MD [address] [place] [address] Referral ID Status Reason Start Date Expiration Date V isits Requested Visits Authorized [id number] New Request 03/30/2022 04/24/2023 1 1 Referral ID Status Reason Start Date Expiration Date V isits Requested Visits Authorized [id number] New Request 07/20/2022 08/14/2023 1 1 Reason Comments Pain Reason Comments Consult Middle finger trigge ring Specialty Diagnoses / Procedures Referred By [place] t Referred To Contact Orthopaedics Diagnoses Hx of total hip arthroplasty, left Jeyson Lew MD [address] [place] [address] Marcus Calles MD [address] [place] [address] Referral ID Status Reason Start Date Expiration Date V isits Requested Visits Authorized [id number] New Request 08/01/2022 08/26/2023 1 1 Referral ID Status Reason Start Date Expiration Date V isits Requested Visits Authorized [id number] New Request 11/21/2022 12/16/2023 1 1 Reason Comments Follow-up Care Teams (unrecognized sec tion and content) Granite Fabricator Relationship Specialty Start Date End Date Tyshawn Hickman II, MD [address] [facility] [place] [address] PCP - General Internal Medicine 08/10/21 Granite Fabricator Relationship Specialty Start Date End Date Tyshawn Hickman II, MD [address] [facility] [place] [address] PCP - General Internal Medicine 08/10/21 Granite Fabricator Relationship Specialty Start Date End Date Tyshawn Hickman II, MD [address] [facility] [place] [address] PCP - General Internal Medicine 08/10/21 Granite Fabricator Relationship Specialty Start Date End Date Tyshawn Hickman II, MD [address] [facility] [place] [address] PCP - General Internal Medicine 08/10/21 Granite Fabricator Relationship Specialty Start Date End Date Tyshawn Hickman II, MD [address] [facility] [place] [address] PCP - General Internal Medicine 08/10/21 Granite Fabricator Relationship Specialty Start Date End Date Tyshawn Hickman II, MD [address] [facility] [place] [address] PCP - General Internal Medicine 08/10/21 Granite Fabricator Relationship Specialty Start Date End Date Tyshawn Hickman II, MD [address] [facility] [place] [address] PCP - General Internal Medicine 08/10/21 Granite Fabricator Relationship Specialty Start Date End Date Tyshawn Hickman II, MD [address] [facility] [place] [address] PCP - General Internal Medicine 08/10/21 Granite Fabricator Relationship Specialty Start Date End Date Tyshawn Hicmkan II, MD [address] [place] [address] PCP - General Internal Medicine 08/10/21 Granite Fabricator Relationship Specialty Start Date End Date Tyshawn Hickman II, MD [address] [place] [address] PCP - General Internal Medicine 08/10/21 Granite Fabricator Relationship Specialty Start Date End Date Tyshawn Hickman II, MD [address] [place] [address] PCP - General Internal Medicine 08/10/21 Team Status: Active Member Role Status Dates Tyshawn Hickman II MD Primary Care Provider Active Team Status: Inactive Member Role Status Dates Tyshawn Hickman II MD Primary Care Provider Active Pb Saanbria MD Attending Provider Active Scheduled Active and [...] 2 g, Intravenous, Administer over 30 Minutes, CORPORATE OPERATIONS COMPLIANCE MANAGER TO PROCEDURE, 1 dose, Starting on Sat11/14/21 at 0754, Until Discontinued, Other, Pre-operative antibiotic, For 15 Minutes, Pre-op/Pre-Proc 1051 (Given - Provid er: Jessica Rosa, ASSOCIATE-LEAD SCIENTIST - Comment: PSR s/p negative test dose) [...] section and content) DATE CREATED AUTHOR 10/17/2022 [facility] Me dical Specialist DATE CREATED AUTHOR AUTHOR'S ORGANIZ ATION 12/13/2022 [facility] spital DATE CREATED AUTHOR AUTHOR'S ORGANIZ ATION 03/08/2023 [facility] DATE CREATED AUTHOR AUTHOR'S ORGANIZ ATION 10/12/2023 [facility] DATE CREATED AUTHOR AUTHOR'S ORGANIZ ATION 11/05/2023 [facility] dical Specialists [facility] DATE CREATED AUTHOR AUTHOR'S ORGANIZ ATION 11/16/2023 [facility] Goals (unrecognized section and content) Goals may [...] BE BASED ON THE PRIMARY CLINICAL RECORDS. [facility] provides no warranty or guarantee of the accuracy or completeness of information in this document.
[2023-12-01 18:07] LABS: Glucometer 148 mg/dL (74-106)
[2023-12-01 18:26] LABS: Lactate/Lactic Acid 1.5 mmol/L (0.4-2.0)
[2023-12-01 18:42] LABS: Adenovirus NOT DETECTED (NOT DETECTE); Bordetella parapertussis NOT DETECTED (NOT DETECTE); Coronavirus 229E NOT DETECTED (NOT DETECTE); Coronavirus HKU1 NOT DETECTED (NOT DETECTE); Coronavirus NL63 NOT DETECTED (NOT DETECTE); Coronavirus OC43 NOT DETECTED (NOT DETECTE); Human Metapneumovirus NOT DETECTED (NOT DETECTE); Human Rhinovirus/Enterovirus NOT DETECTED (NOT DETECTE); Influenza A NOT DETECTED (NOT DETECTE); Influenza B NOT DETECTED (NOT DETECTE); Mycoplasma pneumoniae NOT DETECTED (NOT DETECTE); Parainfluenza Virus 1 NOT DETECTED (NOT DETECTE); Parainfluenza Virus 2 NOT DETECTED (NOT DETECTE); Parainfluenza Virus 3 NOT DETECTED (NOT DETECTE); Parainfluenza Virus 4 NOT DETECTED (NOT DETECTE); Respiratory Syncytial Virus NOT DETECTED (NOT DETECTE); SARS-CoV-2 NOT DETECTED (NOT DETECTE)
[2023-12-01] MEDS: 0.9 % SODIUM CHLORIDE 1,000 ML 80 ML IV (19:26)
[2023-12-01] MEDS: FAMOTIDINE 20 MG TABLET PO (20:15)
[2023-12-01 20:20] LABS: Glucometer 159 mg/dL (74-106)
[2023-12-01] MEDS: ACETAMINOPHEN 500 MG TABLET 1000 MG PO (20:20)
[2023-12-01] MEDS: IPRATROPIUM/ALBUTEROL SULFATE 3 ML AMPUL.NEB IH (20:23)
[2023-12-01] MEDS: INSULIN ASPART 300 UNIT/3 ML PEN SUBQ (21:29)
[2023-12-02 05:07] VITALS: BP 116/51; PULSE 80; RESP 16; TEMP 36.8; O2SAT 95
[2023-12-02 05:40] LABS: Basophils Percent Auto 0.2 % (0.2-2.0); Eosinophils Percent Auto 0.3 % (0.9-7.0); Hematocrit 25.1 % (36.0-48.0); Hemoglobin 7.4 g/dL (12.0-16.0); Immature Granulocytes Abs Auto 0.03 10^3/uL (0.00-0.03); Immature Granulocytes Pct Auto 0.5 % (0.0-0.5); Lymphocytes Absolute Auto 1.2 10^3/uL (1.2-3.8); Lymphocytes Percent Auto 18.8 % (20.5-60.0); Mean Corpuscular HGB Conc 29.5 g/dL (29.9-35.2); Mean Corpuscular Hemoglobin 24.7 pg (26.7-34.0); Mean Corpuscular Volume 83.9 fL (81.0-99.0); Mean Platelet Volume 12.3 fL (9.5-13.5); Monocytes Absolute Auto 0.7 10^3/uL (0.3-0.8); Monocytes Percent Auto 11.3 % (1.7-12.0); Neutrophils Absolute Auto 4.3 10^3/uL (1.4-6.5); Neutrophils Percent Auto 68.9 % (43.0-75.0); Platelet Count 101 10^3/uL (150-450); Red Blood Count 2.99 10^6/uL (4.20-5.40); Red Cell Distribution Width 15.6 % (11.0-15.0); White Blood Count 6.3 10^3/uL (4.0-11.0)
[2023-12-02 05:55] LABS: Alanine Aminotransferase 21 U/L (14-59); Albumin Globulin Ratio 0.8; Albumin Level 2.5 g/dL (3.4-5.0); Alkaline Phosphatase 53 U/L (46-116); Anion Gap 12.1; Aspartate Amino Transferase 32 U/L (15-37); BUN Creatinine Ratio 16.7; Bilirubin Total 0.5 mg/dL (0.2-1.0); Calcium 8.4 mg/dL (8.5-10.1); Carbon Dioxide 24.7 mmol/L (21.0-32.0); Chloride 104 mmol/L (98-107); Estimated GFR (African America >60 (>=60); Estimated GFR (Non-African Ame >60 (>=60); Globulin 3.3 g/dL; Glucose 133 mg/dL (74-106); Potassium 3.8 mmol/L (3.5-5.1); Sodium 137 mmol/L (136-145); Total Protein 5.8 g/dL (6.4-8.2)
[2023-12-02] MEDS: IPRATROPIUM/ALBUTEROL SULFATE 3 ML AMPUL.NEB IH (08:12)
[2023-12-02 08:13] VITALS: O2SAT 93
[2023-12-02 08:31] VITALS: TEMP 37.9
[2023-12-02] MEDS: ACETAMINOPHEN 500 MG TABLET 1000 MG PO (08:31)
[2023-12-02] MEDS: FLUTICASONE PROPIONATE 50 MCG NASAL SPRAY 2 SPRAY NS (08:31)
[2023-12-02 08:32] VITALS: BP 109/54
[2023-12-02] MEDS: METOPROLOL SUCCINATE 25 MG TAB.ER.24H PO (08:32)
[2023-12-02] MEDS: CHOLECALCIFEROL (VITAMIN D3) 125 MCG/5000 UNIT TABLET PO (08:32)
[2023-12-02] MEDS: FUROSEMIDE 20 MG TABLET PO (08:32)
[2023-12-02] MEDS: METFORMIN HCL 500 MG TABLET PO ×2 (08:32→11:52)
[2023-12-02] MEDS: MULTIVITAMIN TABLET 1 TAB PO (08:32)
[2023-12-02] MEDS: ASPIRIN 81 MG TABLET.DR PO (08:32)
[2023-12-02] MEDS: ATORVASTATIN CALCIUM 40 MG TABLET PO (08:32)
[2023-12-02] MEDS: FAMOTIDINE 20 MG TABLET PO (08:32)
[2023-12-02] MEDS: 0.9 % SODIUM CHLORIDE 1,000 ML 80 ML IV (08:33)
[2023-12-02 09:55] VITALS: TEMP 36.9
[2023-12-02 11:52] LABS: Glucometer 102 mg/dL (74-106)
--- NOTE | 2023-12-02 16:16 | P.HP_ITS ---
H&P: HPI History of Present Illness Chief complaint: Lwr Extremity Pain,Fever,Abdominal Pain,Lactic Aci Narrative: 73 y/o female to ER with pain in left hip. C/o pain in low back and outer hip. Pain radiated down left thigh to leg. Mild discomfort in hip and left lower abdomen. Recently seen by ENT and on Augmentin x 30 days for chronic sinusitis. No nausea or emesis. To ER and noted temp 102.6. WBC normal but labs showed anemia with hgb 8.9. Lactate elevated. Covid and flu negative. CT abdomen and pelvis negative and admitted. Started rocephin for possible infection. Chest x-ray obtained and showed possible pneumonia. Patient reports history of COPD and worsening cough for several months. Respiratory plus panel negative. Afebrile since admission. Mild pain in back and hip. Review of Systems ROS Constitutional Reports: fever; Denies: chills or fatigue Cardiovascular Denies: chest pain, palpitations or edema Respiratory Reports: shortness of breath and cough; Denies: wheezing Gastrointestinal Reports: abdominal pain; Denies: nausea, vomiting or diarrhea Genitourinary Denies: painful urination Musculoskeletal Reports: back pain [facility] Medical History (Updated 12/02/23 @ 16:20 by Jef Crawford MD) Acute pelvic pain ?R10.2 - Pelvic and perineal pain (ICD-10) Diabetic acidosis, type I ?E10.10 - Type 1 diabetes mellitus with ketoacidosis without coma (ICD-10) Asthma ?J45.909 - Unspecified asthma, uncomplicated (ICD-10) Surgical History (Updated 12/01/23 @ 18:04 by Tania Phillips) H/O lithotripsy ?Z98.890 - Other specified postprocedural states (ICD-10) Gastric bypass status for obesity ?Z98.84 - Bariatric surgery status (ICD-10) History of total left hip arthroplasty ?Z96.642 - Presence of left artificial hip joint (ICD-10) Family History (Updated 12/01/23 @ 18:07 by Tania Phillips) Sister Family history of cancer Family history of diabetes mellitus Mother Family history of diabetes mellitus Family history of hypertension Social History (Updated 12/01/23 @ 18:08 by Tania Phillips) Smoking status: Former smoker Second hand tobacco smoke exposure: No Non-prescribed substance use: denies use Previous occupational history: retired Known occupational exposures/hazards: No Highest level of school completed/degree received: high school graduate Do you want help with school or training: No Are you now , , , , never or living with a partner: In a typical week, how many times do you talk on the telephone with family, friends, or neighbors: 3 or more times per week How often do you get together with friends or relatives: 3 or more times per week How often do you attend zoroastrianism or mormon services: 4 or more times per year Do you belong to any clubs or organizations such as zoroastrianism groups unions, [employer] or athletic groups, or school groups: no Total score: 3 Score interpretation: A score of greater than or equal to 2 indicates the lowest level of social isolation. Little interest or pleasure in doing things: not at all Feeling down, depressed, or hopeless: not at all Feel stressed/tense/nervous/anxious/difficulty sleeping: not at all Due to disability, difficulty making decisions: No Do you think of yourself as: straight/heterosexual Gender Identity: female Meds Home Medications and Allergies Home Medications Medication Instructions Recorded Confirmed Type alendronate 70 mg tablet 70 mg PO QWEEK 12/01/23 12/01/23 History amoxicillin 875 mg-potassium 1 tab PO BID 12/01/23 12/01/23 History clavulanate 125 mg tablet aspirin 81 mg tablet,delayed 81 mg PO DAILY 12/01/23 12/01/23 History release (Adult Low Dose Aspirin) atorvastatin 40 mg tablet 40 mg PO DAILY 12/01/23 12/01/23 History cetirizine 10 mg tablet 10 mg PO DAILY PRN allergy symptoms 12/01/23 12/01/23 History cholecalciferol (vitamin D3) 125 125 mcg PO DAILY 12/01/23 12/01/23 History mcg (5,000 unit) tablet (Vitamin D3) cyanocobalamin (vitamin B-12) 500 500 mcg PO BID 12/01/23 12/01/23 History mcg tablet (Vitamin B-12) famotidine 20 mg tablet 20 mg PO BID 12/01/23 12/01/23 History fluticasone propionate 50 2 spray intranasal DAILY 12/01/23 12/01/23 History mcg/actuation nasal spray,suspension furosemide 20 mg tablet 20 mg PO DAILY 12/01/23 12/01/23 History ipratropium 0.5 mg-albuterol 3 mg 3 ml inhalation BID 12/01/23 12/01/23 History (2.5 mg base)/3 mL nebulization soln metformin 500 mg tablet 500 mg PO TID 12/01/23 12/01/23 History metoprolol succinate 25 mg 25 mg PO DAILY 12/01/23 12/01/23 History tablet,extended release 24 hr multivitamin (Daily Multi-Vitamin 1 tab PO DAILY 12/01/23 12/01/23 History tablet) levofloxacin 750 mg tablet 750 mg PO DAILY 7 days #7 tabs 12/02/23 Rx Allergies Allergy/AdvReac Type Severity Reaction Status Date / Time No Known Drug Allergies Allergy Verified 12/01/23 15:11 Exam Constitutional Vital Signs, click to edit/add: Last Vital Signs Temp 98.4 F 12/02/23 09:55 Pulse 80 12/02/23 05:07 Resp 16 12/02/23 05:07 BP 109/54 12/02/23 08:32 Pulse Ox 93 L 12/02/23 08:13 O2 Del Method Room Air 12/02/23 08:13 Documenting provider has reviewed patient's vital signs: yes Common normals: no apparent distress, oriented x3 and alert HENMT Common normals: normocephalic Eye Common normals: PERRL and EOMs intact bilaterally Respiratory Common normals: normal respiratory effort and clear to auscultation bilaterally Cardio Common normals: regular rate, regular rhythm, no gallops, no murmurs and no rub GI Common normals: Normal to inspection, nondistended, normoactive bowel sounds present and non-tender Extremity Common normals: no pedal edema Results Labs Labs: Short CBC 12/02/23 Range/Units 05:05 WBC 6.3 (4.0-11.0) 10^3/uL Hgb 7.4 L (12.0-16.0) g/dL Hct 25.1 L (36.0-48.0) % Plt Count 101 L (150-450) 10^3/uL BMP 12/02/23 05:05 Sodium 137 Potassium 3.8 Chloride 104 Carbon Dioxide 24.7 BUN 14.0 Creatinine 0.84 Glucose 133 H Calcium 8.4 L Liver Function 12/02/23 Range/Units 05:05 Total Bilirubin 0.5 (0.2-1.0) mg/dL AST 32 (15-37) U/L ALT 21 (14-59) U/L Alkaline Phosphatase 53 (46-116) U/L Albumin 2.5 L (3.4-5.0) g/dL Assessment and Plan Assessment and Plan (1) Chronic sinusitis: (2) Pneumonia: (3) Left sided sciatica: (4) Fever: Qualifiers: Fever type: unspecified Qualified Code(s): R50.9 - Fever, unspecified (5) Acidosis, lactic: (6) Iron deficiency anemia: (7) Type 2 diabetes mellitus with hyperglycemia: (8) HTN (hypertension): (9) COPD (chronic obstructive pulmonary disease): (10) CAD (coronary artery disease): (11) Chronic heart failure with preserved ejection fraction (HFpEF): Plan To ER with pain and sciatica but found fever. Recently treated for chronic sinusitis and c/o cough for weeks. Possibly with pneumonia. Improved overnight and discharge home. Take levaquin for pneumonia and resume home medication as directed. Use heat and massage for sciatica and back pain. F/u with PCP in 1-2 weeks and may need PT and imaging of lumbar spine. Hgb decreased with fluids and reports history of iron def anemia. Resume iron supplement and PCP can monitor. Urinary Catheter Management Urinary Catheter Management Straight: Cath placed during this visit: yes Urethral indwelling: No Insertion date: 12/01/23 Insertion time: 15:15
== END 2023-12-02 13:55 | disposition home or self-care (01) ==
LOC: ER 16:46 → MS 17:36
PROVIDERS: Admitting Provider Family Medicine; Emergency Provider Emergency Medicine; PCP Internal Medicine; Visit Provider Family Medicine
DX: J18.9 Pneumonia, unspecified organism (principal); J32.9 Chronic sinusitis, unspecified; M54.42 Lumbago with sciatica, left side; R50.9 Fever, unspecified; E87.20 Acidosis, unspecified; D50.9 Iron deficiency anemia, unspecified; E11.65 Type 2 diabetes mellitus with hyperglycemia; I11.0 Hypertensive heart disease with heart failure; J44.0 Chronic obstructive pulmonary disease with (acute) lower respiratory infection; I25.10 Atherosclerotic heart disease of native coronary artery without angina pectoris; R10.2 Pelvic and perineal pain; I50.32 Chronic diastolic (congestive) heart failure; Z20.822 Contact with and (suspected) exposure to COVID-19; Z98.84 Bariatric surgery status; Z96.642 Presence of left artificial hip joint; Z98.890 Other specified postprocedural states; Z87.891 Personal history of nicotine dependence; Z79.899 Other long term (current) drug therapy; Z79.84 Long term (current) use of oral hypoglycemic drugs; Z79.82 Long term (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
CPT/HCPCS: 0202U; 36415; 71045; 74176; 80053; 81001; 82948; 83605; 85025; 87040; 87635; 87804; 87811; 94640; 96361; 96374; 96375; 99285; G0378

== ENCOUNTER 2024-03-20 08:15 | Outpatient (OUT) | payer MEDICARE, SELFPAY ==
--- NOTE | 2024-03-20 08:17 | MM_ITS ---
Patient Name: TONIA BOYER MR#: [id number] : 1950 Exam Date: 03/20/2024 Ordering Doctor: DR BRIANDA MILLER M.D. RADIOLOGY REPORT PROCEDURE: MM TOMOSYNTHESIS SCREENING BI COMPARISON: MG MAMM SCREEN 3D NGOC CAD, 02/28/2023. MG MAMM DX 3D RT CAD, 06/07/2022. MG MAMM SCREEN 3D NGOC CAD, 10/31/2021. MG MAMM NGOC SCRN W CAD DIG, 06/17/2009. INDICATIONS: Screening Calculator Name NCI Breast Cancer Risk Assessment Tool 5 Year Breast Cancer Risk Not Reported. Lifetime Breast Cancer Risk Not Reported. Personal Breast Cancer No Personal Ovarian Cancer No Treatments None Family Cancers None LOCATION: [facility] BREAST COMPOSITION: There are scattered areas of fibroglandular density. FINDINGS: DIAGNOSTIC CATEGORY 2--BENIGN FINDING: RIGHT BREAST: No significant suspicious finding. Scattered benign-appearing calcifications are present. No significant change has occurred. LEFT BREAST: No significant suspicious finding. Scattered benign-appearing calcifications are present. No significant change has occurred. RECOMMENDATIONS: ROUTINE MAMMOGRAM AND CLINICAL EVALUATION IN 12 MONTHS. PLEASE NOTE: A NORMAL MAMMOGRAM DOES NOT EXCLUDE THE POSSIBILITY OF BREAST CANCER. A CLINICALLY SUSPICIOUS PALPABLE LUMP SHOULD BE BIOPSIED. Dictated by: Dayday Galan M.D. on 03/20/2024 at 14:43 Approved by: Dayday Galan M.D. on 03/20/2024 at 14:47
== END 2024-03-20 08:16 | disposition home or self-care (01) ==
LOC: MAMMO 08:15
PROVIDERS: PCP Internal Medicine; Visit Provider Internal Medicine
DX: Z12.31 Encounter for screening mammogram for malignant neoplasm of breast (principal)
CPT/HCPCS: 77063; 77067

== ENCOUNTER 2024-06-25 13:34 | Outpatient (OUT) | payer MEDICARE, SELFPAY ==
--- OUTSIDE RECORDS SUMMARY | 2024-06-25 13:50 | XMS_ITS | CCD ---
Author Organization [facility] Inform ion Partnership [facility] Care Team Providers Care Rotor Balancer Name Role Phone Vick KRAUS MD, Tyshawn Primary Care Provider Pb Sanabria Vick KRAUS MD, Tyshawn Primary Care Provider [phone] ALEXANDRA BELCHER Consulting Unavailable VICK, DR LAAMR Primary Care Unavailable RENE ., DR CHEN Admitting Unavailable RENE ., DR CHEN Attending Unavailable TAMMIE, DR ROLA Rios Admitting Unavailable VICK, DR LAMAR Primary Care Unavailable TAMMIE, DR ROLA Rios Attending Unavailable TAMMIE, DR ROLA Rios Consulting Unavailable PAT, SOPHIA Consulting Unavailable RENE ., DR CHEN Admitting Unavailable VICK, DR LAMAR Primary Care Unavailable EUNICE ., MIRA PONCE Consulting Unavailkrystle e RENE ., DR CHEN Attending Unavailable CHEN ZAMORANO Consulting Unavailable VICK, DR LAMAR Primary Care Unavailable VICK, DR LAMAR Admitting Unavailable VICK, DR LAMAR Attending Unavailable VICK, DR LAMAR Consulting Unavailable RAE, DR PB Arroyo Consulting Unavailable VICK, DR LAMAR Admitting Unavailable VICK, DR LAMAR Attending Unavailable VICK, DR LAMAR Consulting Unavailable VICK, DR LAMAR Primary Care Unavailable HICKMAN, DR LAMAR Admitting Unavailable VICK, DR LAMAR Attending Unavailable VICK, DR LAMAR Consulting Unavailable VICK, DR LAMAR Primary Care Unavailable ZIEBER, DR NITIN Rios Consulting Unavailable VICK, DR LAMAR Primary Care Unavailable RENE ., DR CHEN Admitting Unavailable RENE ., DR CHEN Attending Unavailable RENE ., DR CHEN Consulting Unavailable LUKE BLACKWOOD Consulting Unavailable NAYANA Hickman Primary Care Provider MD Pb Sanabria Attending Provider Pb Sanabria Attending Unavailable Pb Sanabria Admitting Unavailable Tyshawn Hickman Primary Care Unavailable TYSHAWN HICKMAN Primary Care Physician Timmis, Jose Cruz H Referring Unavailable Timmis, Jose Cruz H Attending Unavailable SusannesJose Cruz H Admitting Unavailable Vick KRAUS MD, Daniel Primary Care Provider [phone] JEYSON LEW Attending Unavailable ADALI, JEYSON Referring Unavailable VICK II, TYSHAWN Primary Care Unavailable ADALI, JEYSON Referring Unavailable HICKMAN II, TYSHAWN Primary Care Unavailable ADALI, JEYSON Attending Unavailable SELF, SELF Referring Unavailable HICKMAN II, TYSHAWN Primary Care Unavailable JEYSON LEW Attending Unavailable ADALI, JEYSON Referring Unavailable HICKMAN II, TYSHAWN Primary Care Unavailable ADALI, JEYSON Attending Unavailable TIMMIS, JOSE CRUZ H Attending Unavailable VICK TYSHAWN B Attending Unavailable HICKMANTYSHAWN B Attending Unavailable HICKMAN, TYSHAWN B Attending Unavailable HICKMAN, TYSHAWN B Attending Unavailable LONNIEMIS, JOSE CRUZ H Attending Unavailable Allergies Allergy Classification Reported Allergen(s) Allergy Type Date of Onset Reaction(s) Facility (2 sources) Cat Hair Extract Drug Allergy 05-31-2023 [employer] [facility] Medications Current Medications Medication Drug Class(es) Dates Sig (Normalized) Sig (Original) acetaminophen 325 mg oral tablet (15 sources) Start: 11-14-2021 take 2 tablets by mouth every four hours as needed acetaminophen 325 MG tablet Take 2 tablets by mouth every 4 hours as needed for Mild Pain. 50 tablet 1 11/14/2021 Active Start: 11-14-2021 End: 11-14-2021 take 1 tablet by mouth every six hours acetaminophen (TYLENOL) tablet 1,000 mg acetaminophen 325 mg / HYDROcodone bitartrate 5 mg oral tablet (8 sources) Opioid Agonist Start: 11-14-2021 End: 11-21-2021 take 1 tablet by mouth once daily as needed hydroCODone-acetaminophen 5-325 MG tablet Indications: Acute postoperative pain of left knee Take 1-2 tablets by mouth every 6 hours as needed for Severe Pain for up to 7 days. Do not take over 4000mg acetaminophen daily. 10 tablet 0 11/14/2021 Active Albuterol (15 sources) beta2-Adrene rgic Agonist Start: 10-04-2021 Albuterol Active 90 MCG INHALATION As Directed October 03, 2021 11:00pm albuterol 108 (9 0 Base) MCG/ACT Aero Soln inhaler as needed. 0 Active albuterol 0.833 mg/ml / ipratropium bromide 0.167 mg/ml inhalation solution (16 sources) Anticholinergic, beta2-Adrenergic Agonist ipratropium-alb uterol 0.5-2.5 (3) MG/3ML nebulizer solution ipratropium 0.5 mg-albuterol 3 mg (2.5 mg base)/3 mL nebulization soln 0 Active Ipratropium-Albu terol Active alendronic acid 70 mg oral tablet (17 sources) Bisphosphonate Start: 10-04-2021 take 70 mg by mouth every week Alendronate Active 70 MG PO every week October 03, 2021 11:00pm alendronate 70 M G tablet every 7 days. 0 Active Alendronate Sodi um Active {1 (ascorbic acid 7540 MG / polyethylene glycol 3350 79059 MG / potassium chloride 1200 MG / sodium ascorbate 71222 MG / sodium chloride 3200 MG Powder for Oral Solution) / 1 (polyethylene glycol 3350 298596 MG / potassium chloride 1000 MG / [...] 0 Active atorvastatin 40 mg oral tablet (17 sources) HMG-CoA Reductase Inhibitor Start: 10-04-2021 take 40 mg by mouth once daily Atorvastatin Active 40 MG PO Daily October 03, 2021 11:00pm Atorvastatin Sarah cium Active calcium citrate 1040 mg oral tablet (14 sources) Calcium Citrate 1040 MG tablet Take [...] 11/15/2021 Active cholecalciferol 0.125 mg oral tablet (14 sources) Vitamin D Cholecalciferol 125 MCG (5000 UT) per tablet At bedtime. 0 Active colchicine 0.6 mg oral capsule (16 sources) Colchicine 0.6 M G capsule as needed. 0 Active Colchicine Activ e 1 ml dexamethasone phosphate 4 mg/ml injection (8 sources) Corticosteroid Start: 08-01-2022 dexAMETHasone 4 MG/ML Solution injection 1 mL by Other route As directed for 18 doses. (1 cc 3 x a week at physical therapy via iontophoresis) for up to 18 doses. 30 mL 0 08/01/2022 Active Start: 11-14-2021 End: 11-14-2021 dexAMETHasone (DECADRON) inj ection 10 mg diphenhydrAMINE (7 sources) Histamine-1 Receptor Antagonist diphenhydrAMINE HCl (BENADRYL ALLERGY PO) Take by mouth. 0 Active docusate sodium 100 mg oral capsule (14 sources) Start: End: take 1 capsule by mouth twice daily docusate 100 MG capsule Take 1 capsule by mouth 2 times daily. 60 capsule 0 11/14/2021 Active ferrous sulfate 325 mg oral tablet (15 sources) Start: take 1 tablet by mouth three times daily Ferrous Sulfate (Iron) 325 mg (65 mg iron) Tablet Active 325 MG PO Three times daily October 03, 2021 11:00pm Ferrous Sulfate (IRON PO) 3 times daily. 0 Active furosemide 20 mg oral tablet (17 sources) Loop Diuretic Start: 10-04-2021 take 20 mg by mouth once daily Furosemide Active 20 MG PO Daily October 03, 2021 11:00pm Furosemide Activ e hydrocortisone 25 mg/ml topi sarah lotion (16 sources) Corticosteroid hydrocortisone 2 .5 % Lotion Apply topically as needed. 0 Active Hydrocortisone A ctive Iron (2 sources) Iron Active metFORMIN hydrochloride 500 mg oral tablet (17 sources) Biguanide Start: 10-04-2021 take 500 mg by mouth twice daily Metformin Active 500 MG PO Twice daily October 03, 2021 11:00pm metFORMIN 500 MG tablet 3 times daily. 0 Active take 1 tablet by codi th every twenty-four hours 24 hr metoprolol succinate 25 mg extended release oral tablet (17 sources) beta-Adrenergic Donnie Start: 10-04-2021 take 25 mg by mouth once daily Metoprolol Succinate Active 25 MG PO Daily October 03, 2021 11:00pm Metoprolol Succi paras ER Active multivitamin tablet (14 sources) take 1 tablet by mouth once daily multivitamin tablet Take 1 tablet by mouth daily. 0 Active Nystatin (2 sources) Polyene Antifungal Nystatin Active nystatin 100 unt/mg / triamcinolone acetonide 0.001 mg/mg topical ointment (14 sources) Polyene Antifungal, Corticosteroid nystatin-triamcinolo ne 041752-0.1 UNIT/GM-% Ointment as needed. 0 Active omeprazole 20 mg delayed release oral capsule (13 sources) Proton Pump Inhibitor Start: 2020 take 1 capsule by mouth once daily omeprazole [address] capsule Take 1 capsule by mouth daily. 30 capsule 0 11/14/2021 Active ondansetron 4 mg oral tablet (14 sources) Serotonin-3 Receptor Antagonist Start: 2020 take 1 tablet by mouth every eight hours as needed ondansetron 4 MG tablet Take 1 tablet by mouth every 8 hours as needed for Nausea. 6 tablet 0 11/14/2021 Active Start: 11-14-2021 End: 11-14-2021 take 4 mg intravenously every four hours as needed ondansetron 4mg/2ml (ZOFRAN) injection 4 mg traMADol hydrochloride 50 mg oral tablet (9 sources) Opioid Agonist Start: 11-14-2021 End: 11-21-2021 take 1-2 tablets by mouth every six hours as needed for pain traMADol 50 MG tablet Indications: Acute postoperative pain of left knee 1-2 tabs po q 6 hr PRN pain 20 tablet 0 11/14/2021 Active vitamin b12 1 mg oral tablet (14 sources) Vitamin B12 take 2 tablets by mouth every month cyanocobalamin 1000 MCG tablet Take 500 mcg by mouth. Once or twice/month 0 Active Completed/Discontinued Medications Medication Drug Class(es) Dates Sig (Normalized) Sig (Original) bisacodyl 10 mg rectal suppository (1 source) Stimulant Laxative Start: 11-14-20 End: 11-14-20 21 bisacodyl (DULCOLAX) suppository 10 mg bupivacaine hydrochloride [...] Discharge) docusate sodium 50 mg / sennosides, correction 8.6 mg oral tablet (1 source) Start: [...] Chronic Complication of device; implant or graft (1 source) Pain due to hip joint prosthesis; Translations: [Pain due to internal orthopedic prosthetic devices, implants and grafts, sequela] Episodic Congestive heart failure; nonhypertensive (2 sources) [...] Chronic insomnia; Translations: [Psychophysiologic insomnia] Chronic Osteoarthritis (6 sources) Osteoarthritis of left hip joint; Translations: [Unilateral primary osteoarthritis, left hip] Onset: 10-04-2022 Chronic Osteoporosis (1 source) Age-related osteoporosis without current pathological fracture; Translations: [AGE-REL OSTEOPOR W/O CURR PATH FX] Onset: 03-06-2023 Chronic Other connective tissue disease (4 sources) History of total replacement of left hip joint; Translations: [Presence of left artificial hip joint] Chronic Other connective tissue disease (1 source) Trigger finger of left hand; Translations: [Trigger finger, unspecified finger] Episodic Other hereditary and degenerative nervous system conditions (2 sources) Restless legs; Translations: [Restless legs syndrome] Chronic Other hereditary and degenerative nervous system conditions (2 sources) Restless legs syndrome Onset: 10-03-2021 Resolved: 10-03-2021 Chronic Other nervous system disorders (1 source) Other [...] object(s), not elsewhere classified, initial encounter; Translations: [[facility] OT SHRP OB NOT ELSW CLASS INI] Onset: [...] Onset: 09-17-2022 Episodic Other aftercare (1 source) [facility] (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; Translations: [SHELTER CURRENT USE OF ASPIRIN] Onset: 10-04-2022 Episodic Other aftercare (1 source) Other [facility] (current) drug therapy; Translations: [OTH SHELTER CURRENT DRUG THERAPY] Onset: 10-04-2022 Episodic Other aftercare (1 source) 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; Translations: [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 DX] Onset: 10-04-2022 Episodic Other connective tissue disease (3 sources) Pain in left thigh; Translations: [PAIN IN LEFT THIGH] Onset: 05-26-2022 Episodic Other non-traumatic joint disorders (4 sources) Pain in left hip; Translations: [PAIN IN LEFT HIP] Onset: 05-28-2022 Episodic Residual codes; unclassified (1 [...] Test Name Value Interpretation Reference Range Facility C REACTIVE PROTEINon 024 CRP [Mass/Vol] 5.5 mg/L Normal 0-10 [facility] Comment on above: Performed By: #### E SR, CREACT #### Testing performed at [address] [address] CRP [Mass/Vol] 5.5 mg/L 0 - 10 MG/L [facility] ESRon 12-12-2023 ESR (Bld) [Velocity] 29 mm/h Normal 0-30 [facility] Comment on above: Performed By: #### E SR, CREACT #### Testing performed at [address] [address] SEDIMENTATION RATE, AUTOMATE Don 12-12-2023 ESR (Bld) [Velocity] 29 mm/h [facility] CT Maxillofacial w/o Contras ton 12-05-2023 CT Maxillofacial w/o Contrast Exam Date/Time: 12/05/2023 09:42 EST Reason for Exam: J32.4 Report IMPRESSION: NO ACUTE FINDINGS. NO INTERVAL CHANGE FROM 2017. CT MAXILLOFACIAL WITHOUT INTRAVENOUS CONTRAST MEDIUM. History: Sinus pressure.. Technical factors: CT maxillofacial was obtained and formatted as 1 mm contiguous axial images. Sagittal and coronal reconstruction obtained during postprocessing. Comparison: CT maxillofacial, January 28, 2017. Findings: Bilateral frontal, ethmoid, sphenoid, and maxillary sinuses patent. Mildly prominent mid and caudal bilateral turbinates and left yakelin bullosa again identified and unchanged. Mild deviation of septum to right, stable. Ostiomeatal complexes narrowed, patent, and unchanged. Radiopaque continuous marker just lateral to right zygomatic maxillary junction. Mastoid air cells well pneumatized bilaterally. Bilateral ocular globes, extraocular muscles, optic nerves, retrobulbar fat without anomaly. No fracture. No bone lesions. All CT scans at this facility use dose modulation, iterative reconstruction, and/or weight based dosing when appropriate to reduce radiation dose to as low as reasonably achievable. Ordering Provider: Jose Cruz Bustillo FINAL REPORT Dictated: 12/05/2023 11:21 am Oren Abdul MD Signed (Electronic Signature): 12/05/2023 11:21 am Signed by: Oren Abdul MD Transcribed by: YAZ Technologist: NATALY [facility] Consent for Treatmenton Consent for Treatment [id number] 0TIFF [facility] Physician Orderon 11-14-2023 Physician Order [id number] 0TIFF [facility] Physician Order [id number] 0TIFF [facility] MG MAMM SCREEN 3D NGOC CADon 02-28-2023 MG MAMM SCREEN 3D NGOC CAD Patient: SIRIA PETTY Exam Date: 02/28/2023 : 1950 Gender:F Ordering : DR TYSHAWN HICKMAN M.D. Admission #: [id number] Family : Order #: [id number] CLICK HERE TO VIEW EXAM RADIOLOGY REPORT [...] Treatments None Family Cancers None LOCATION: The BREAST COMPOSITION: Almost entirely fatty. FINDINGS: DIAGNOSTIC [...] MD on 02/28/2023 at 14:23 Normal [facility] XR DEXA BONE DENSITYon 02-28 XR [...] PB MCBRIDE Date: 2023-02-28 15:36 Normal [facility] US Venous, Unilat, Lower Ext Righton 10-17-2022 [...] by Berhane Fernandez on 10/17/2022 1156 Normal [facility] Abrasive Band Winder XR HIP LT 2 3V W PELVISon [...] SOPHIA STEWART Date: 2022-10-03 00:50 Normal [facility] UPPER EXTREMITY INJECTION: L long A1on [...] fashion. The patient was prepped with alcohol. [facility] Radiology Study observation (narrative) [facility] MG MAMM DX 3D RT CADon 06-07 MG MAMM DX 3D RT CAD Patient: SIRIA PETTY Exam Date: 06/07/2022 : 1950 Gender:F Ordering : DR TYSHAWN HICKMAN M.D. Admission #: [id number] Family : Order #: [id number] CLICK HERE TO VIEW EXAM RADIOLOGY REPORT [...] Treatments None Family Cancers None LOCATION: The BREAST COMPOSITION: Almost entirely fatty. FINDINGS: DIAGNOSTIC [...] M.D. on 06/07/2022 at 15:44 Normal The [facility] AUTO DIFFon 05-26-2022 BASO # 0.0 103/ul Normal 0.0-0.1 [facility] Comment on above: Performed By: #### C BC #### Laboratory [address] [address] [address] Francesca Ortiz Basophils/100 WBC (Bld) 0.5 % Normal 0.2-2.0 [facility] Comment on above: Performed By: #### C BC #### Laboratory [address] [address] [address] Francesca Ortiz EO # 0.1 103/ul Normal 0.0-0.7 [facility] Comment on above: Performed By: #### C BC #### Laboratory [address] [place] [address] Dr. Francesca Ortiz Eosinophils/100 WBC (Bld) 1.9 % Normal 0.9-7.0 [facility] Comment on above: Performed By: #### C BC #### Laboratory [address] [place] [address] Dr. Francesca Ortiz Erythrocyte distribution width (RBC) [Ratio] 13.5 % Normal 11.0-15.0 [facility] Comment on above: Performed By: #### C BC #### Laboratory [address] [place] [address] Dr. Francesca Ortiz Hematocrit (Bld) [Volume fraction] 35.7 % Critically low 36.0-48.0 [facility] Comment on above: Performed By: #### C BC #### Laboratory [address] [place] [address] Dr. Francesca Ortiz Hemoglobin (Bld) [Mass/Vol] 11.3 g/dL Critically low 12.0-16.0 [facility] Comment on above: Performed By: #### C BC #### Laboratory [address] [place] [address] Dr. Francesca Ortiz IG # 0.01 10e3/ul Normal 0.00-0.03 [facility] Comment on above: Performed By: #### C BC #### Laboratory [address] [place] [address] Dr. Francesca Ortiz IG % 0.2 % Normal 0.0-0.5 [facility] Comment on above: Performed By: #### C BC #### Laboratory [address] [place] [address] Dr. Francesca Ortiz LYMPH # 1.7 103/ul Normal 1.2-3.8 [facility] Comment on above: Performed By: #### C BC #### Laboratory [address] [place] [address] Dr. Francesca Ortiz Lymphocytes/100 WBC (Bld) 27.9 % Normal 20.5-60.0 [facility] Comment on above: Performed By: #### C BC #### Laboratory [address] [place] [address] Dr. Francesca Ortiz MANUAL DIFF REQ NO Normal [facility] Comment on above: Performed By: #### C BC #### Laboratory [address] [place] [address] Dr. Francesca Ortiz MCH (RBC) [Entitic mass] 29.9 pg Normal 26.7-34.0 [facility] Comment on above: Performed By: #### C BC #### Laboratory [address] [place] [address] Dr. Francesca Ortiz MCHC (RBC) [Mass/Vol] 31.7 g/dL Normal 29.9-35.2 [facility] Comment on above: Performed By: #### C BC #### Laboratory [address] [place] [address] Dr. Francesca Ortiz MCV (RBC) [Entitic vol] 94.4 fL Normal 81.0-99.0 [facility] Comment on above: Performed By: #### C BC #### Laboratory [address] [place] [address] Dr. Francesca Ortiz MONO # 0.6 103/ul Normal 0.3-0.8 [facility] Comment on above: Performed By: #### C BC #### Laboratory [address] [place] [address] Dr. Francesca Ortiz Monocytes/100 WBC (Bld) 9.9 % Normal 1.7-12.0 [facility] Comment on above: Performed By: #### C BC #### Laboratory [address] [place] [address] Dr. Francesca Ortiz NEUT # 3.5 103/ul Normal 1.4-6.5 [facility] Comment on above: Performed By: #### C BC #### Laboratory [address] [place] [address] Dr. Francesca Ortiz Neutrophils/100 WBC (Bld) 59.6 % Normal 43.0-75.0 [facility] Comment on above: Performed By: #### C BC #### Laboratory [address] [place] [address] Dr. Francesca Ortiz Platelet mean volume (Bld) [Entitic vol] 10.7 fL Normal 9.5-13.5 [facility] Comment on above: Performed By: #### C BC #### Laboratory [address] [place] [address] Dr. Francesca Ortiz PLT 131 103/ul Critically low 150-450 [facility] Comment on above: Performed By: #### C BC #### Laboratory [address] [place] [address] Dr. Francesca Ortiz RBC 3.78 106/ul Critically low 4.20-5.[address] [facility] Comment on above: Performed By: #### C BC #### Laboratory [address] [place] [address] Dr. Francesca Ortiz WBC 5.9 103/ul Normal 4.0-11.0 [facility] Comment on above: Performed By: #### C BC #### Laboratory [address] [place] [address] Dr. Francesca Ortiz PROF 14(COMP METB)on 022 Albumin [Mass/Vol] 3.6 g/dL Normal 3.4-5.0 [facility] Comment on above: Performed By: #### C MP #### Laboratory [address] [place] [address] Dr. Francesca Ortiz Albumin/Globulin [Mass ratio] 1.1 {ratio} Normal [facility] Comment on above: Performed By: #### C MP #### Laboratory [address] [address] [address] Francesca Ortiz ALP [Catalytic activity/Vol] 93 U/L Normal 46-116 [facility] Comment on above: Performed By: #### C MP #### Laboratory [address] [address] [address] Francesca Ortiz ALT [Catalytic activity/Vol] 33 U/L Normal 14-59 [facility] Comment on above: Performed By: #### C MP #### Laboratory [address] [address] [address] Francesca Ortiz Anion gap [Moles/Vol] 13.2 mmol/L Normal [facility] Comment on above: Performed By: #### C MP #### Laboratory [address] [place] [address] Dr. Francesca Ortiz AST [Catalytic activity/Vol] 34 U/L Normal 15-37 [facility] Comment on above: Performed By: #### C MP #### Laboratory [address] [place] [address] Dr. Francesca Ortiz Bilirubin [Mass/Vol] 0.5 mg/dL Normal 0.2-1.0 [facility] Comment on above: Performed By: #### C MP #### Laboratory [address] [place] [address] Dr. Francesca Ortiz Calcium [Mass/Vol] 9.0 mg/dL Normal 8.5-10.1 [facility] Comment on above: Performed By: #### C MP #### Laboratory [address] [place] [address] Dr. Francesca Ortiz Chloride [Moles/Vol] 104 mmol/L Normal 98-107 [facility] Comment on above: Performed By: #### C MP #### Laboratory [address] [address] [address] Francesca Ortiz CO2 [Moles/Vol] 27.2 mmol/L Normal 21.0-32.[address] [facility] Comment on above: Performed By: #### C MP #### Laboratory [address] [address] [address] Francesca Ortiz Creatinine [Mass/Vol] 0.92 mg/dL Normal 0.55-1.02 [facility] Comment on above: Performed By: #### C MP #### Laboratory [address] [address] [address] Francesca Ortiz EGFR-AF NIGERIAN >60 Normal >=[address] [facility] Comment on above: Performed By: #### C MP #### Laboratory [address] [address] [address] Francesca Ortiz EGFR-NON AF NIGERIAN =60 Normal >=60 [facility] Comment on above: Performed By: #### C MP #### Laboratory [address] [place] [address] Dr. Francesca Ortiz Globulin (S) [Mass/Vol] 3.4 g/dL Normal [facility] Comment on above: Performed By: #### C MP #### Laboratory [address] [place] [address] Dr. Francesca Ortiz Glucose [Mass/Vol] 113 mg/dL Critically high 74-106 [facility] Comment on above: Performed By: #### C MP #### Laboratory [address] [place] [address] Dr. Francesca Ortiz Potassium [Moles/Vol] 4.4 mmol/L Normal 3.5-5.1 [facility] Comment on above: Performed By: #### C MP #### Laboratory [address] [place] [address] Dr. Francesca Ortiz Protein [Mass/Vol] 7.0 g/dL Normal 6.4-8.[address] [facility] Comment on above: Performed By: #### C MP #### Laboratory [address] [place] [address] Dr. Francesca Ortiz Sodium [Moles/Vol] 140 mmol/L Normal 136-[address] [facility] Comment on above: Performed By: #### C MP #### Laboratory [address] [place] [address] Dr. Francesca Ortiz Urea nitrogen [Mass/Vol] 17.0 mg/dL Normal 7.0-18.0 [facility] Comment on above: Performed By: #### C MP #### Laboratory [address] [place] [address] Dr. Francesca Ortiz Urea nitrogen/Creatinine [Mass ratio] 18.5 mg/mg Normal [facility] Comment on above: Performed By: #### C MP #### Laboratory [address] [place] [address] Dr. Francesca Ortiz XR HIP LT 2 [...] LUKE BLACKWOOD Date: 2022-05-26 15:55 Normal The CBC AUTO DIFFon 05-10-2022 BASO # 0.0 103/ul Normal 0.0-0.1 [facility] Comment on above: Performed By: #### C BC #### Laboratory [address] [place] [address] Dr. Francesca Ortiz Basophils/100 WBC (Bld) 0.4 % Normal 0.2-2.0 [facility] Comment on above: Performed By: #### C BC #### Laboratory [address] [place] [address] Dr. Francesca Ortiz EO # 0.1 103/ul Normal 0.0-0.7 [facility] Comment on above: Performed By: #### C BC #### Laboratory [address] [place] [address] Dr. Francesca Ortiz Eosinophils/100 WBC (Bld) 1.8 % Normal 0.9-7.0 [facility] Comment on above: Performed By: #### C BC #### Laboratory [address] [place] [address] Dr. Francesca Ortiz Erythrocyte distribution width (RBC) [Ratio] 13.9 % Normal 11.0-15.0 [facility] [facility] Comment on above: Performed By: #### C BC #### Laboratory [address] [place] [address] Dr. Francesca Ortiz Hematocrit (Bld) [Volume fraction] 36.8 % Normal 36.0-48.0 [facility] Comment on above: Performed By: #### C BC #### Laboratory [address] [place] [address] Dr. Francesca Ortiz Hemoglobin (Bld) [Mass/Vol] 11.7 g/dL Critically low 12.0-16.0 [facility] Comment on above: Performed By: #### C BC #### Laboratory [address] [place] [address] Dr. Francesca Ortiz IG # 0.01 10e3/ul Normal 0.00-0.03 [facility] Comment on above: Performed By: #### C BC #### Laboratory [address] [place] [address] Dr. Francesca Ortiz IG % 0.2 % Normal 0.0-0.5 [facility] Comment on above: Performed By: #### C BC #### Laboratory [address] [place] [address] Dr. Francesca Ortiz LYMPH # 1.6 103/ul Normal 1.2-3.8 The Comment on above: Performed By: #### C BC #### Laboratory [address] [place] [address] Dr. Francesca Ortiz Lymphocytes/100 WBC (Bld) 31.5 % Normal 20.5-60.0 [facility] Comment on above: Performed By: #### C BC #### Laboratory [address] [place] [address] Dr. Francesca Ortiz MANUAL DIFF REQ NO Normal [facility] Comment on above: Performed By: #### C BC #### Laboratory [address] [place] [address] Dr. Francesca Ortiz MCH (RBC) [Entitic mass] 30.0 pg Normal 26.7-34.0 [facility] Comment on above: Performed By: #### C BC #### Laboratory [address] [place] [address] Dr. Francesca Ortiz MCHC (RBC) [Mass/Vol] 31.8 g/dL Normal 29.9-35.2 [facility] Comment on above: Performed By: #### C BC #### Laboratory [address] [place] [address] Dr. Francesca Ortiz MCV (RBC) [Entitic vol] 94.4 fL Normal 81.0-99.0 [facility] Comment on above: Performed By: #### C BC #### Laboratory [address] [place] [address] Dr. Francesca Ortiz MONO # 0.6 103/ul Normal 0.3-0.8 [facility] Comment on above: Performed By: #### C BC #### Laboratory [address] [place] [address] Dr. Francesca Ortiz Monocytes/100 WBC (Bld) 11.0 % Normal 1.7-12.0 [facility] Comment on above: Performed By: #### C BC #### Laboratory [address] [place] [address] Dr. Francesca Ortiz NEUT # 2.8 103/ul Normal 1.4-6.5 The Comment on above: Performed By: #### C BC #### Laboratory [address] [place] [address] Dr. Francesca Ortiz Neutrophils/100 WBC (Bld) 55.1 % Normal 43.0-75.0 [facility] Comment on above: Performed By: #### C BC #### Laboratory [address] [place] [address] Dr. Francesca Ortiz Platelet mean volume (Bld) [Entitic vol] 11.0 fL Normal 9.5-13.5 [facility] Comment on above: Performed By: #### C BC #### Laboratory [address] [address] [address] Francesca Ortiz PLT 136 103/ul Critically low 150-450 [facility] Comment on above: Performed By: #### C BC #### Laboratory [address] [address] [address] Farncesca Ortiz RBC 3.90 106/ul Critically low 4.20-5.[address] [facility] Comment on above: Performed By: #### C BC #### Laboratory [address] [address] [address] Francesca Ortiz WBC 5.1 103/ul Normal 4.0-11.0 [facility] Comment on above: Performed By: #### C BC #### Laboratory [address] ABD/PELV W CONon 05-10-[address] ABD/PELV W CON EXAMINATION: CT ABD/PELV [...] CHEN ZAMORANO Date: 2022-05-10 15:30 Normal The PROF CHEM 8 (BAS METB)on Anion gap [Moles/Vol] 9.9 mmol/L Normal [facility] Comment on above: Performed By: #### B MP #### Laboratory [address] [place] [address] Dr. Francesca Ortiz Calcium [Mass/Vol] 9.5 mg/dL Normal 8.5-10.1 [facility] Comment on above: Performed By: #### B MP #### Laboratory [address] [address] [address] Francesca Ortiz Chloride [Moles/Vol] 104 mmol/L Normal 98-107 [facility] Comment on above: Performed By: #### B MP #### Laboratory [address] [address] [address] Francesca Ortiz CO2 [Moles/Vol] 27.2 mmol/L Normal 21.0-32.0 [facility] Comment on above: Performed By: #### B MP #### Laboratory [address] [address] [address] Francesca Ortiz Creatinine [Mass/Vol] 0.88 mg/dL Normal 0.55-1.02 [facility] Comment on above: Performed By: #### B MP #### Laboratory [address] [address] [address] Francesca Ortiz EGFR-AF NIGERIAN >60 Normal >=60 [facility] Comment on above: Performed By: #### B MP #### Laboratory [address] [address] [address] Francesca Ortiz EGFR-NON AF NIGERIAN >60 Normal >=60 [facility] Comment on above: Performed By: #### B MP #### Laboratory [address] [address] [address] Francesca Ortiz Glucose [Mass/Vol] 111 mg/dL Critically high 74-106 [facility] Comment on above: Performed By: #### B MP #### Laboratory [address] [address] [address] Francesca Ortiz Potassium [Moles/Vol] 4.1 mmol/L Normal 3.5-5.1 [facility] Comment on above: Performed By: #### B MP #### Laboratory [address] [address] [address] Francesca Ortiz Sodium [Moles/Vol] 137 mmol/L Normal 136-145 [facility] Comment on above: Performed By: #### B MP #### Laboratory [address] [address] [address] Francesca Ortiz Urea nitrogen [Mass/Vol] 17.0 mg/dL Normal 7.0-18.0 [facility] Comment on above: Performed By: #### B MP #### Laboratory [address] [address] [address] Francesca Ortiz Urea nitrogen/Creatinine [Mass ratio] 19.3 mg/mg Normal [facility] Comment on above: Performed By: #### B MP #### Laboratory [address] [address] [address] Francesca Ortiz GLUCOSE (POC DEVICE)on 11-14 GLUCOSE, POINT OF CARE 169 [facility] Interpretation and review of laboratory results Abnormal [facility] Picker Packer [id number] [facility] HEMOGLOBIN & HEMATOCRITon Hematocrit (Bld) [Volume fraction] 34.9 % Low 36.0 - 48.0 % [facility] Hemoglobin (Bld) [Mass/Vol] 11.2 g/dL Low [facility] Interpretation and review of laboratory results Abnormal [facility] NOVEL CORONAVIRUS LAB 1 - NA SOPHARYNGEALon 11-14-2021 NARRATIVE -1 This test was performed using isothermal GIO and has been approved as Emergency Use Authorization (EUA) for the qualitative detection [id number] nucleic acid. [facility] SARS-CoV-2 (COVID-19) RNA GIO+probe Ql (Unsp spec) Not detected NOT DETECTED [facility] Comment on above: Negative results do [...] patient is critically ill or clinically deteriorating. [facility] PROTIME-INRon 11-14-2021 INR Coag (PPP) [Relative time] 1.15 {INR} High [facility] Comment on above: 2.0-3.0 THERAPEUTIC RANGE 2.5-3.5 MECHANICAL VALVE RANGE Interpretation and review of laboratory results Abnormal [facility] PT Coag (PPP) [Time] 14.9 s High [facility] TYPE AND SCREEN - POSSIBLE T RANSFUSIONon 11-14-2021 ABO and Rh group Nom (Bld ) Positive [facility] ARM BAND NUMBER [id number] [facility] Blood group antibody screen Ql Negative [facility] EXPIRATION DATE 11/17/2021,[id number] [facility] XR PELVIS AP ONLYon 11-14-20 21 IMPRESSION: Routine postoperative changes. RADIOLOGY EXAM: XR PELVIS AP ONLY HISTORY: TILA. COMPARISON: 06/06/2021. TECHNIQUE: Frontal view of the pelvis. FINDINGS: There is new left hip arthroplasty hardware. There are no acute fractures or dislocations. RADIOLOGY Mohini Ramirez MD - 11/14/2021 EXAM: XR PELVIS AP ONLY HISTORY: TILA. COMPARISON: 06/06/2021. TECHNIQUE: Frontal view of the pelvis. FINDINGS: There is new left hip arthroplasty hardware. There are no acute fractures or dislocations. IMPRESSION IMPRESSION: Routine postoperative changes. [facility] Radiology Study observation (narrative) [facility] XR PELVIS AP ONLYOrdered By: Mohini Ramirez on 11-14-2021 [facility] Work Phone: Complete Blood Counton 11-07 Erythrocyte distribution width (RBC) [Ratio] 17.0 % High 11.0-15.0 [facility] [employer] Comment on above: Performed By: #### C BC #### [facility] [address], [place] [id number] Hematocrit (Bld) [Volume fraction] 37.3 % Normal 35.0-47.0 [facility] [employer] Comment on above: Performed By: #### C BC #### [facility] [address] [place], [place] [id number] Hemoglobin (Bld) [Mass/Vol] 11.6 g/dL Normal 11.6-15.5 [facility] [employer] Comment on above: Performed By: #### C BC #### [facility] [address], [place] [id number] MCH (RBC) [Entitic mass] 28.6 pg Normal 27.0-33.0 [facility] [employer] Comment on above: Performed By: #### C BC #### [facility] [address], [place] [id number] MCHC (RBC) [Mass/Vol] 31.1 g/dL Low 32.0-36.0 [facility] [employer] Comment on above: Performed By: #### C BC #### [facility] [address], [place] [id number] MCV (RBC) [Entitic vol] 92 fL Normal 80-100 [facility] [employer] Comment on above: Performed By: #### C BC #### [facility] [address], [place] [id number] Platelet mean volume (Bld) [Entitic vol] 11.10 fL Normal 7.50-12.50 [facility] [employer] Comment on above: Performed By: #### C BC #### [facility] [address], [place] [id number] Platelets (Bld) [#/Vol] 155 10*3/uL Normal 140-400 [facility] Special[facility] Comment on above: Performed By: #### C BC #### [facility] [address], [place] [id number] RBC (Bld) [#/Vol] 4.06 10*6/uL Normal 3.90-5.20 [facility] Specialist Comment on above: Performed By: #### C BC #### [facility] [address], [place] [id number] RDW-SD 57.8 fL High 37.0-50.0 [facility] Comment on above: Performed By: #### C BC #### [facility] [address], [place] [id number] WBC (Bld) [#/Vol] 5.6 10*3/uL Normal 3.8-11.0 [facility] Comment on above: Performed By: #### C BC #### [facility] [address], [place] [id number] Vital Signs Date Time Vital Sign Value Performing Clinician Facility 12-12-2023 15:42-0500 Body height 157.5 cm Jeyson Lew MD Work Phone: [facility] 12-12-2023 15:42-0500 Body mass index (BMI) [Ratio] 33.11 kg/m2 Jeyson Lew MD Work Phone: [facility] 12-12-2023 15:42-0500 Body weight 82.1 kg Jeyson Lew MD Work Phone: [facility] 10-08-2023 13:00-0500 Body height 157.48 cm Pb [facility] Other [facility] Other 10-08-2023 13:00-0500 Body mass index (BMI) [Ratio] 32.55 kg/m2 Pb [facility] Other [facility] Other 10-08-2023 13:00-0500 Body weight 80.74 kg Pb [facility] Other [facility] Other 10-08-2023 13:00-0500 Diastolic blood pressure 67 mm[Hg] Pb [facility] Other [facility] Other 10-08-2023 13:00-0500 SaO2% (BldA) [Mass fraction] 95 % Pb [facility] Other [facility] Other 10-08-2023 13:00-0500 Systolic blood pressure 124 mm[Hg] Pb [facility] Other [facility] Other 11-27-2022 15:05-0500 Body height 157.5 cm Doug Sahni CENTRIFUGAL DRIER OPERATOR-SISTER SUPERIOR Work Phone: [employer] [facility] 11-27-2022 15:05-0500 Body mass index (BMI) [Ratio] 34.39 kg/m2 Doug Sahni APRN-SISTER SUPERIOR Work Phone: [facility] [facility] 11-27-2022 15:05-0500 Body temperature 97 [degF] Doug Sahni CENTRIFUGAL DRIER OPERATOR-SISTER SUPERIOR Work Phone: [facility] [facility] 11-27-2022 15:05-0500 Body weight 85.28 kg Doug Sahni APRN-SISTER SUPERIOR Work Phone: [facility] [facility] 08-08-2022 08:48-0400 Body height 157.5 cm Serafin Calles MD Work Phone: [facility] [facility] 08-08-2022 08:48-0400 Body mass index (BMI) [Ratio] 34.56 kg/m2 Serafin Calles MD Work Phone: [facility] [facility] 08-08-2022 08:48-0400 Body temperature 98.49 [degF] Serafin Calles MD Work Phone: [facility] [facility] 08-08-2022 08:48-0400 Body weight 85.7 kg Serafin Calles MD Work Phone: [facility] [facility] 08-01-2022 11:19-0400 Body height 157.5 cm Jeyson Lew MD Work Phone: [employer] [facility] 08-01-2022 11:19-0400 Body mass index (BMI) [Ratio] 34.57 kg/m2 Jeyson Lew MD Work Phone: [employer] [facility] 08-01-2022 11:19-0400 Body weight 85.73 kg [facility] Lew [facility] 04-06-2022 09:43-0400 Body height 157.5 cm Jeyson Lew MD Work Phone: [employer] [facility] 04-06-2022 09:43-0400 Body mass index (BMI) [Ratio] 34.57 kg/m2 Jeyson Lew MD Work Phone: [employer] [facility] 04-06-2022 09:43-0400 Body weight 85.73 kg Jeyson Lew MD Work Phone: [facility] 12-07-2021 14:22-0500 Body height 157.5 cm Doug Sahni CENTRIFUGAL DRIER OPERATOR-SISTER SUPERIOR Work Phone: [employer] [facility] 12-07-2021 14:22-0500 Body mass index (BMI) [Ratio] 34.57 kg/m2 Doug Sahni CENTRIFUGAL DRIER OPERATOR-SISTER SUPERIOR Work Phone: [employer] [facility] 12-07-2021 14:22-0500 Body temperature 98.2 [degF] Doug Sahni CENTRIFUGAL DRIER OPERATOR-SISTER SUPERIOR Work Phone: [employer] [facility] 12-07-2021 14:22-0500 Body weight 85.73 kg Doug Sahni CENTRIFUGAL DRIER OPERATOR-SISTER SUPERIOR Work Phone: [facility] 11-14-2021 18:30-0500 Diastolic blood pressure 68 mm[Hg] Jeyson Lew MD Work Phone: [facility] 11-14-2021 18:30-0500 Heart rate 73 /min Jeyson Lew MD Work Phone: [facility] 11-14-2021 18:30-0500 Respiratory rate 20 /min Jeyson Lew MD Work Phone: [employer] [facility] 11-14-2021 18:30-0500 SaO2% (BldA) [Mass fraction] 96 % Jeyson Lew MD Work Phone: [facility] [facility] 11-14-2021 18:30-0500 Systolic blood pressure 154 mm[Hg] Jeyson Lew MD Work Phone: [facility] [facility] 11-14-2021 12:44-0500 Body temperature 98.2 [degF] Jeyson Lew MD Work Phone: [facility] [facility] 11-14-2021 08:23-0500 Body height 157.5 cm Jeyson Lew MD Work Phone: [facility] [facility] 11-14-2021 08:23-0500 Body mass index (BMI) [Ratio] 34.39 kg/m2 Jeyson Lew MD Work Phone: [facility] [facility] 11-14-2021 08:23-0500 Body weight 85.28 kg Jeyson Lew MD Work Phone: [facility] [facility] 10-03-2021 14:00-0400 Body height 157.48 cm Pb [facility] Other [facility] Other 10-03-2021 14:00-0400 Body mass index (BMI) [Ratio] 35.3 kg/m2 Pb [facility] Other [facility] Other 10-03-2021 14:00-0400 Body temperature 97.7 [degF] Pb [facility] Other [facility] Other 10-03-2021 14:00-0400 Body weight 87.54 kg Pb [facility] Other [facility] Other 10-03-2021 14:00-0400 Diastolic blood pressure 71 mm[Hg] Pb [facility] Other [facility] Other 10-03-2021 14:00-0400 SaO2% (BldA) [Mass fraction] 98 % Pb Daniele Other [facility] Other 10-03-2021 14:00-0400 Systolic blood pressure 146 mm[Hg] Pb [facility] Other [facility] Other Encounters Encounter Date Encounter Type Care Provider Facility Start: 03-11-2024 End: 03-11-2024 ambulatory TYSHAWN Rodriguez HICKMAN Not Available Start: 01-20-2024 End: 01-20-2024 ambulatory TYSHAWN B HICKMAN Not Available Start: 12-30-2023 End: 12-30-2023 ambulatory TYSHAWN B HICKMAN Not Available Start: 12-19-2023 End: 12-19-2023 ambulatory TYSHAWN B HICKMAN Not Available Start: 12-12-2023 ambulatory [facility] Start: 12-12-2023 ambulatory [facility] Start: 12-12-2023 End: 12-12-2023 Office outpatient visit 15 minutes Jeyson Lew MD Work Phone: [facility] Comment on above: Primary osteoarthrit is of left hip (Primary Dx) Start: 12-12-2023 End: 12-12-2023 Subsequent hospital visit by physician Jeyson Lew MD Work Phone: [facility] Start: 12-11-2023 End: 12-11-2023 ambulatory JOSE CRUZ H TIMMIS Not Available Start: 12-05-2023 End: 12-06-2023 ambulatory Jose Cruz H Timmis Facility:[facility] [place] [place] Start: 12-05-2023 End: 12-05-2023 Patient encounter procedure Jose Cruz H Timmis [facility] Start: 11-04-2023 End: 11-04-2023 ambulatory JOSE CRUZ H TIMMIS Not Available Start: 10-08-2023 Office outpatient vi sit 25 minutes Pb Sanabria [facility] Start: 10-08-2023 End: 10-08-2023 ambulatory NAYANA Tyshawn Hickman Work Phone: [facility] Work Phone: Start: 10-08-2023 End: 10-08-2023 Patient encounter procedure II Tyshawn Hickman Work Phone: [facility] Work Phone: Start: 02-28-2023 End: 03-01-[address] TYSHAWN HICKMAN Facility:[facility] Start: 01-03-2023 ambulatory JEYSON LEW [facility] Start: 11-27-2022 End: 11-27-2022 Office outpatient visit 15 minutes Doug Sahni APRN-SISTER SUPERIOR Work Phone: [facility] Comment on above: Primary osteoarthrit is of one hip, left (Primary Dx) Start: 11-27-2022 End: 11-27-2022 Subsequent hospital visit by physician Doug Sahni APRN-SISTER SUPERIOR Work Phone: [facility] Start: 10-03-2022 End: 10-03-[address] ROLA IVORY Facility:[facility] Start: 09-17-2022 End: 09-17-2022 ambulatory ALEXANDRA DOE . Facility:[facility] Start: 08-08-2022 End: 08-08-2022 Office outpatient new 30 minutes Serafin Calles MD Work Phone: [facility] Comment on above: Trigger finger of le ft hand, unspecified finger (Primary Dx) Start: 08-01-2022 End: 08-01-2022 Office outpatient visit 15 minutes Jeyson Lew MD Work Phone: [facility] Comment on above: Hx of total hip arth roplasty, left (Primary Dx); Pain due to left hip joint prosthesis, sequela Start: 08-01-2022 End: 08-01-2022 Subsequent hospital visit by physician Jeyson Lew MD Work Phone: [facility] Start: 06-07-2022 End: 06-08-[address] TYSHAWN HICKMAN Facility:[facility] Start: 05-28-2022 End: 05-29-[address] TYSHAWN HICKMAN Facility:[facility] Start: 05-26-2022 End: 05-26-[address] TYSHAWN HICKMAN Facility:[facility] Start: 05-10-2022 End: 05-10-[address] APRIL LÓPEZ . Facility:[facility] Start: 04-06-2022 End: 04-06-2022 Office outpatient visit 15 minutes Jeyson Lew MD Work Phone: [facility] Comment on above: Hx of total hip arth roplasty, left (Primary Dx) Start: 04-06-2022 End: 04-06-2022 Subsequent hospital visit by physician Jeyson Lew MD Work Phone: [facility] Start: 01-10-2022 End: 01-19-2022 Postop follow up visit related to original px Doug Sahni CENTRIFUGAL DRIER OPERATOR-SISTER SUPERIOR Work Phone: [facility] Comment on above: Hx of total hip arth roplasty, left (Primary Dx) Start: 12-07-2021 End: 12-07-2021 Postop follow up visit related to original px Jeyson Lew MD Work Phone: [facility] Comment on above: Hx of total hip arth roplasty, left (Primary Dx) Start: 12-07-2021 End: 12-07-2021 Subsequent hospital visit by physician Doug Sahni CENTRIFUGAL DRIER OPERATOR-SISTER SUPERIOR Work Phone: [facility] Start: 11-14-2021 End: 11-14-2021 Patient encounter status Jeyson Lew MD Work Phone: [facility] Start: 11-14-2021 End: 11-14-2021 Subsequent hospital visit by physician Jeyson Lew MD Work Phone: [facility] Comment on above: Primary osteoarthrit is of left hip Start: 11-06-2021 End: 11-06-2021 Admission to establishment Santiago Deysi Ont Pat Testing [facility] Comment on above: Preop testing (Prima ry Dx) Start: 11-06-2021 End: 11-06-2021 Patient encounter status Santiago Deysi Ont Pat Testing [facility] Start: 10-03-2021 End: 10-03-2021 ambulatory Pb [facility] Other [facility] Other Start: 10-03-2021 Office outpatient vi sit 25 minutes Pb Sanabria [facility] Procedures Date Procedure Procedure Detail Performing Clinician Start: 08-08-2022 Injection 1 tendon sheath/ligament aponeurosis Serafin Calles MD Work Phone: Start: 11-14-2021 Blood count hematocrit Doug Sahni CENTRIFUGAL DRIER OPERATOR-SISTER SUPERIOR Work Phone: Start: 11-14-2021 Gluc bld gluc mntr d ev cleared fda spec home use Jeyson Lew MD Work Phone: Start: 11-14-2021 Radiologic examinati on pelvis 1/2 views Doug Sahni CENTRIFUGAL DRIER OPERATOR-SISTER SUPERIOR Work Phone: Start: 11-14-2021 Iadna nos amplified probe tq each organism Doug Sahni CENTRIFUGAL DRIER OPERATOR-SISTER SUPERIOR Work Phone: Start: 11-14-2021 Blood typing serologic abo Jeyson Lew MD Work Phone: Start: 11-14-2021 Prothrombin time Jeyson Lew MD Work Phone: Plan of Treatment Date Care Activity Detail Author Start: 09-17-2032 Tetanus vaccination [facility] Start: 08-03-2024 Tetanus vaccination [facility] Start: 10-09-2023 Pneumococcal vaccination PNEUM OCOCCAL VACCINE SERIES (3 - PPSV23 or PCV20) [facility] Start: 08-02-2023 COVID-19 VACCINE ( season) COVID-19 VACCINE ( season) [facility] Start: 11-14-2022 End: 11-14-2022 Patient encounter procedure 11/14/2022 Office Visit Orthopaedics Doug Sahni, CENTRIFUGAL DRIER OPERATOR-SISTER SUPERIOR [address] [place] [address] [facility] Start: 10-10-2022 End: 10-10-2022 Patient encounter procedure 10/10/2022 Office Visit Orthopaedics Serafin Calles MD [address] [place] [address] [facility] Start: 10-04-2022 Screening for malign ant neoplasm of colon COLORECTAL CANCER SCREENING DISCUSSION [facility] Start: 08-31-2022 Potassium [Moles/vol ume] in Serum or Plasma POTASSIUM [facility] Start: 08-08-2022 End: 08-08-2022 Patient encounter procedure 08/08/2022 Office Visit Orthopaedics Serafin Calles MD [address] [place] [address] [facility] Start: 08-02-2022 Influenza vaccination INFLUENZA VACC INE (#1) [facility] Start: 03-15-2022 End: 03-15-2022 Patient encounter procedure 03/15/2022 Office Visit Orthopaedics Jeyson Lew MD [address] [place] [id number] [facility] Start: 12-28-2021 End: 12-28-2021 Patient encounter procedure [facility] Start: 12-07-2021 End: 12-07-2021 Patient encounter procedure 12/07/2021 Office Visit Orthopaedics Doug Sahni, CENTRIFUGAL DRIER OPERATOR-SISTER SUPERIOR [address] [place] [id number] [facility] Start: 11-14-2021 End: 11-14-2021 Admission to same day surgery center 11/14/2021 Surgery Multispecialty Jeyson Lew MD [address] [place] [id number] ARTHROPLASTY HIP TOTAL AL - LEFT [facility] Comment on above: ARTHROPLASTY HIP TOT AL AL - LEFT Start: 11-14-2021 End: 11-14-2021 Arthrp acetblr/prox fem prostc agrft/algrft ARTHROPLASTY HIP TOTAL LATERAL APPROACH Primary osteoarthritis of left hip 11/14/2021 10:00 AM EST [facility] Start: 11-14-2021 Subsequent hospital visit by physician 11/14/2021 Hospital Encounter Multispecialty Jeyson Lew MD [address] [id number] Primary osteoarthritis of left hip [facility] Comment on above: Primary osteoarthrit is of left hip Start: 09-16-2021 COVID-19 VACCINE (3 - Booster for Moderna series) COVID-19 VACCINE (3 - Booster for Moderna series) [facility] Start: 08-17-2021 COVID-19 VACCINE (3 - Booster for Moderna series) COVID-19 VACCINE (3 - Booster for Moderna series) [facility] Start: 08-02-2021 Influenza vaccination INFLUENZA VACC INE (#1) [facility] Start: 05-12-2021 COVID-19 VACCINE (3 - Booster for Moderna series) COVID-19 VACCINE (3 - Booster for Moderna series) [facility] Start: 10-27-2020 Screening for malign ant neoplasm of breast MAMMOGRAM SCREENING DISCUSSION [facility] Start: 10-09-2019 Pneumococcal vaccination PNEUM OCOCCAL VACCINE SERIES (#3) [facility] Start: 2017 Pneumococcal vaccination [facility] Start: 2002 Zoster vaccine hzv l bol[place] for subcutaneous use ZOSTER (SHINGLES) VACCINE (1 of 2) [facility] [facility] Start: 1997 Colonoscopy COLORECTAL CAN CER SCREENING DISCUSSION [facility] Start: 1997 Screening for malign ant neoplasm of colon COLORECTAL CANCER SCREENING DISCUSSION [facility] Start: 1992 Fasting lipid profile LIPID SCREENIN G [facility] Start: 1992 Lipid panel LIPID SCREENING [facility] Start: 1992 Screening for malign ant neoplasm of breast MAMMOGRAM SCREENING DISCUSSION [facility] Start: 1992 Screening mammography MAMMOGRA M SCREENING DISCUSSION [facility] Start: 1973 Screening for malign ant neoplasm of cervix CERVICAL CANCER SCREENING DISCUSSION [facility] Start: 1971 Third diphtheria, tetanus and acellular pertussis (DTaP) vaccination TDAP (ADULT) [facility] Start: 1970 Tetanus vaccination TETANUS [facility] Start: 1952 Hepatitis C antibody , confirmatory test HEPATITIS C VIRUS SCREENING [facility] Start: 1952 Hepatitis C screening HEPATITI S C VIRUS SCREENING [facility] Start: 1952 Screening for osteoporosis DEXA SCAN DISCUSSION [facility] End: 11-14-2021 Radiography of hip [facility] Work Phone: Comment on above: One Time for 1 Occur rences starting 11/14/2021 until 11/14/2021 Skeletal X-ray of pe lvis and hip XR HIP WITH PELVIS LEFT Imaging Routine Hx of total hip arthroplasty, left 12[facility]07[facility]21 1:53 [facility] S[facility] X-ray of pe lvis and hip XR HIP WITH PELVIS LEFT Imaging Routine Hx of total hip arthroplasty, left 01/16/2022 9:52 AM EST [facility] SURGICAL PATHOLOGY REQUEST SURGICAL PATHOLOGY REQUEST Surg Path Routine Primary osteoarthritis of left hip Release Upon Ordering for 1 Occurrences starting 11/14/2021 [facility] Comment on above: Release Upon Orderin g for 1 Occurrences starting 11/14/2021 XR Pelvis and Hip - left Views XR HIP WITH PELVIS LEFT Imaging Routine Hx of total hip arthroplasty, left 04/06/2022 8:24 AM EDT [facility] Work Phone: XR Pelvis and Hip - left Views XR HIP WITH PELVIS LEFT Imaging Routine Hx of total hip arthroplasty, left 08/01/2022 10:18 AM EDT [facility] XR Pelvis and Hip - left Views XR HIP WITH PELVIS LEFT Imaging Routine Hx of total hip arthroplasty, left 11/27/2022 2:46 PM EST [facility] XR Pelvis and Hip - left Views XR HIP WITH PELVIS LEFT Imaging Routine Primary osteoarthritis of left hip 12/12/2023 3:34 PM EST [facility] Immunizations Immunization Date Immunization Notes Care Provider Cherelle santo 09-06-2021 influenza virus vaccine, unspecified formulation Jeyson Lew MD Work Phone: [facility] 03-17-2021 COVID-19 mRNA-1273 (Moderna) II Tyshawn Hickman Work Phone: [facility] 02-17-2021 COVID-19 mRNA-1273 (Moderna) II Tyshawn Hickman Work Phone: [facility] 08-31-2020 influenza virus vaccine, unspecified formulation [facility] Payers Date Payer Category Payer Medicare [id number] 2021 Self-pay [id number] 2021 Medicare MEDICARE MEDICAR E A AND B [id number] 2021-Present [address] [place] [address] [id number]. [id number] 2021 Medicare [id number]. [id number] 2019 Unknown GENERIC PAYOR ME DICARE SUPPLEMENT [id number] 2019-Present [phone] [place] [address] [id number] [id number].3. [id number] 2019 Unknown GENERIC PAYOR ME DICARE SUPPLEMENT [id number] 2019-Present [phone] [place] [address] 1.2.840.903460.1.13.172.2.7.3. [id number] 1959 Medicare [id number] 2.16.840.1.950250.19 1959 Medicare [id number] 1959 Unknown [id number] 2.16.840.1.931957.19 1959 Unknown [id number] 1952 Unknown [id number] 2.16.840.1.366332.3.579.2.593 1952 Unknown [id number] 2.16.840.1.391167.3.579.2.593 1952 Unknown [id number] 2.16.840.1.759076.3.579.2.593 1952 Unknown [id number] 2.16.840.1.261791.3.579.2.593 1952 Unknown [id number] 2.16.840.1.070192.3.579.2.593 1952 Unknown [id number] 2.16.840.1.810504.3.579.2.593 1952 Unknown [id number] 2.16.840.1.098521.3.579.2.593 1952 Unknown [id number] 2.16.840.1.265873.3.579.2.727 1952 Unknown [id number] 2.16.840.1.356454.3.579.2.983 1952 Unknown [id number] 2.16.840.1.451551.3.579.2.983 1952 Unknown [id number] 2.16.840.1.648112.3.579.2.983 1952 Unknown [id number] 2.16.840.1.033788.3.579.2.983 1952 Unknown [id number] 2.16.840.1.655647.3.579.2.1259 1952 Unknown [id number] 2.16.840.1.016949.3.579.2.1259 1952 Unknown [id number] 2.16.840.1.442016.3.579.2.1259 1952 Unknown [id number] 2.16.840.1.873066.3.579.2.1259 1952 Unknown [id number] 2.16.840.1.812935.3.579.2.1259 1952 Unknown [id number] 2.16.840.1.755836.3.579.2.1259 1952 Unknown [id number] 2.16.840.1.673219.3.579.2.1259 Unknown Iatan BC/ [id number] Unknown [id number] 2.16.840.1.071496.3.579.2.531 Social History Date Type Detail Facility Start: 08-10-2021 End: 11-27-2022 Tobacco smoking status NHIS Ex-smoker [facility] Start: 08-10-2021 End: 11-27-2022 Tobacco use and exposure Smokeless tobacco non-user [facility] Start: 11-02-2021 End: 12-12-2023 Alcohol intake Lifetime non-drinker (finding) [facility] Start: 08-10-2021 History SDOH Alcohol Frequency 1 [facility] Start: 08-10-2021 End: 11-27-2022 Tobacco Comment Quit 1999 [facility] Start: 1950 Sex Assigned At Not on file A [facility] Exposure to SARS-CoV -2 (event) Not sure [facility] Start: 12-12-2023 Sex Assigned At F [facility] History of tobacco use Current smoker [facility] Start: 1950 Sex Assigned At Female F [facility] Tobacco smoking status No Smokin g Status Entered [facility] Start: 12-12-2023 History of Social function [facility] Medical Equipment Procedure Code Equipment Code Equipment Original Text Equipment Identifier Dates Springer Gripton Acetabular Shell Sector 54mm Od [id number] Start: 11-14-2021 Altrx Polyethyle ne Acetabular Liner Neutral 36mm Id 54 Od [id number] Start: 11-14-2021 Femoral Stem Taper Actis Duofix Hip Prosthesis Cementless Size 6 Std Collar [id number] Start: 11-14-2021 Biolox Delta Cer amic Femoral Head +1.5 36mm Gracie 11/14 Taper [id number] Start: 11-14-2021 Suture Egnar, Biocompositie Corkscrew Ft, Vented With 1.3mm White/Blue And White/Black Suture Tape [id number] Start: 11-14-2021 Suture Egnar, Biocompositive Swivelock C, Closed Eyelet With #2 Fiberwire, 4.75 X 19.1mm [id number] Start: 11-14-2021 Suture Egnar, Biocompositive Swivelock C, Closed Eyelet With #2 Fiberwire, 4.75 X 19.1mm [id number] Start: 11-14-2021 Clinical Notes 10-03-2021 to 12-12-2023 Genevieve Simeon - 12/12/2023 3:30 PM John Lew MD - 12/12/2023 3:30 PM EST Note Date & Type Note Facility 12-12-2023 History of Presen t illness Narrative Ortho Nurse - Established Patient Intake Room#: room 3--- pt here today for Left Hip Pain, pt states she had a LTHA in 11/14/21) pt rates her pain on a scale of 7/10 today. Pt was in the ER last Saturday and they kept her over night. Pt states she has not had any falls or knows of anything that would have caused her to have pain. Date: 12/12/2023 3:42 PM Patient: Siria Petty MR#: [id number] : 1950 Age: 73 y.o. Referring Physician: Self, Self Insurance: Payor: MEDICARE UHC HMO / Plan: MEDICARE UHC HMO / Product Type: *No Product type* / Chief Complaint Patient presents with Left Hip - Pain Visit Vitals Ht 1.575 m (5' 2 ) Wt 82.1 kg (181 lb) BMI 33.11 kg/m Pain Recent Labs No results found [...] times daily. furOSEmide 20 MG tablet daily. hydroCODone-acetaminophen 5-325 MG tablet Take 1-2 tablets by mouth every 6 hours as needed for Severe Pain for up to 7 days. Do not take over 4000mg acetaminophen daily. 10 tablet 0 hydrocortisone 2.5 % Lotion Apply topically as needed. ipratropium-albuterol 0.5-2.5 (3) MG/3ML nebulizer solution ipratropium 0.5 mg-albuterol 3 mg (2.5 mg base)/3 mL nebulization soln metFORMIN 500 MG tablet 3 times daily. metoprolol succinate 25 MG tablet XL Take by mouth daily every morning. multivitamin tablet Take 1 tablet by mouth daily. nystatin-triamcinolone 938236-6.1 UNIT/GM-% Ointment as needed. omeprazole [address] capsule Take 1 capsule by mouth daily. 30 capsule 0 ondansetron 4 MG tablet Take 1 tablet by mouth every 8 hours as needed for Nausea. 6 tablet 0 traMADol 50 MG tablet 1-2 tabs po q 6 hr PRN pain 20 tablet 0 No facility-administered medications prior to visit. Allergies: She has No Known Allergies. HPI: Patient is here today for evaluation of her operative hip. She is status post left total hip arthroplasty with 80% abductor muscle repair on 11/14/21. States she was coughing excessively this past week, developed severe pain in the leg that is associated with numbness and tingling. No known back workup. The pain became so severe, she presented to the ER on Saturday and is here today for a peace of mind evaluation regarding hip prosthesis and potential infection. Denies fevers or chills. PHYSICAL EXAM: The bilateral lower extremities were [...] in unchanged position and alignment. IMPRESSION: 1.) DDD/Spondylolisthesis as demonstrated by previous CT scan. 2.) Stable status post left total hip arthroplasty with 80% abductor muscle repair on 11/14/21. PLAN: I reviewed my findings with Siria. We discussed the diagnosis, radiographs, physical exam findings and treatment options together. Radiographs are unremarkable, nothing remarkable on physical exam of the hip prosthesis. Given her radicular symptoms and previous lumbar CT scan which demonstrated DDD/Spondylolisthesis, recommend a referral to Dr. Rosas for further work up of the back. We will however order ESR/CRP labs to establish inflammatory baseline. If results are abnormal, my office will notify her otherwise follow up with Dr. Rosas. All questions were answered to her satisfaction. Next appointment will be left open to her. I have reviewed the findings of my clinical staff below and agree with their assessment. Ortho Nurse - Established Patient Intake Room#: room 3--- pt here today for Left Hip Pain, pt states she had a LTHA in 11/14/21) pt rates her pain on a scale of 7/10 today. Pt was in the ER last Saturday and they kept her over night. Pt states she has not had any falls or knows of anything that would have caused her to have pain. Date: 12/12/2023 3:42 PM Patient: Siria Petty MR#: [id number] : 1950 Age: 73 y.o. Referring Physician: Self, Self Insurance: Payor: MEDICARE UHC HMO / [facility] / Product Type: *No Product type* / Chief Complaint Patient presents with Left Hip - Pain Visit Vitals Ht 1.575 m (5' 2 ) Wt 82.1 kg (181 lb) BMI 33.11 kg/m Pain Recent Labs No results found [...] times daily. furOSEmide 20 MG tablet daily. hydroCODone-acetaminophen 5-325 MG tablet Take 1-2 tablets by mouth every 6 hours as needed for Severe Pain for up to 7 days. Do not take over 4000mg acetaminophen daily. 10 tablet 0 hydrocortisone 2.5 % Lotion Apply topically as needed. ipratropium-albuterol 0.5-2.5 (3) MG/3ML nebulizer solution ipratropium 0.5 mg-albuterol 3 mg (2.5 mg base)/3 mL nebulization soln metFORMIN 500 MG tablet 3 times daily. metoprolol succinate 25 MG tablet XL Take by mouth daily every morning. multivitamin tablet Take 1 tablet by mouth daily. nystatin-triamcinolone 781874-6.1 UNIT/GM-% Ointment as needed. omeprazole [address] capsule Take 1 capsule by mouth daily. 30 capsule 0 ondansetron 4 MG tablet Take 1 tablet by mouth every 8 hours as needed for Nausea. 6 tablet 0 traMADol 50 MG tablet 1-2 tabs po q 6 hr PRN pain 20 tablet 0 No facility-administered medications prior to visit. Allergies: She has No Known Allergies. documented in this encounter [facility] 10-08-2023 Evaluation note Encounter Date Diagnosis Assessment [...] - G25.81) Not currently an active problem [facility] Other 12-27-2022 History of Present illness Narrative* Chrystal Geovanny - 11/27/2022 3:20 PM EST Ortho Nurse - Established Patient Intake Room#: 5 Date: 11/27/2022 3:07 PM Patient: Siria Petty MR#: [id number] : 1950 Age: 72 y.o. 1yr L [...] Take 1 tablet by mouth daily. nystatin-triamcinolone 400316-0.1 UNIT/GM-% Ointment as needed. omeprazole 20 MG [...] by mouth daily., Disp: , Rfl: nystatin-triamcinolone 745340-0.1 UNIT/GM-% Ointment, as needed. , Disp: , [...] Allergies: She has No Known Allergies. * Doug Sahni APRN-SISTER SUPERIOR - 11/27/2022 3:20 PM EST HPI: Patient [...] on face to face time with patient. Doug Sahni APRN-LUIS I have reviewed the findings of my clinical staff below and agree with their assessment. Ortho Nurse - Established Patient Intake Room#: 5 Date: 11/27/2022 3:07 PM Patient: Siria Petty MR#: [id number] : 1950 Age: 72 y.o. 1yr L [...] Take 1 tablet by mouth daily. nystatin-triamcinolone 887530-0.1 UNIT/GM-% Ointment as needed. omeprazole 20 MG [...] by mouth daily., Disp: , Rfl: nystatin-triamcinolone 151429-5.1 UNIT/GM-% Ointment, as needed. , Disp: , [...] has No Known Allergies. documented in this [facility]09-07-2022 History of Present illness Narrative* Heather [...] Psychiatric/Behavioral: Negative for dysphoric mood. * Aye Schafre LPN - 08/08/2022 9:15 AM EDTAssociated Order(s): [...] The patient was prepped with alcohol. * Serafin Calles MD - 08/08/2022 9:15 AM EDT [...] by mouth daily., Disp: , Rfl: nystatin-triamcinolone 271664-9.1 UNIT/GM-% Ointment, as needed. , Disp: , [...] in about 2 months. documented in this [facility]08-31-2022 History of Present illness Narrative* Jaswant Baldwin LPN - 08/01/2022 10:30 AM EDT Ortho Nurse - Established Patient Intake Room#: 3 Left TILA 11-14-21, had a fall on 05-10-22 went to [facility] and was told everything looked good and was given pain medication which she is done with. Before fall she states she was doing great with occasional pain of 2, since her fall the pain radiates down to her foot and is a 10 Date: 08/01/2022 11:26 AM Patient: Siria Petty MR#: [id number] : 1950 Age: 72 y.o. Referring Physician: [...] Take 1 tablet by mouth daily. nystatin-triamcinolone 738630-3.1 UNIT/GM-% Ointment as needed. acetaminophen 325 MG [...] by mouth daily., Disp: , Rfl: nystatin-triamcinolone 936218-9.1 UNIT/GM-% Ointment, as needed. , Disp: , [...] a fall on 05/10/21, went to the [facility] with reported unremarkable work up. She states [...] I will make the referral to Dr. Serafin Calles. All questions were answered. She has no further questions. I have reviewed the findings of my clinical staff below and agree with their assessment. Ortho Nurse - Established Patient Intake Room#: 3 Left TILA 11-14-21, had a fall on 05-10-22 went to [facility] and was told everything looked good and was given pain medication which she is done with. Before fall she states she was doing great with occasional pain of 2, since her fall the pain radiates down to her foot and is a 10 Date: 08/01/2022 11:26 AM Patient: Siria Petty MR#: [id number] : 1950 Age: 72 y.o. Referring Physician: [...] Take 1 tablet by mouth daily. nystatin-triamcinolone 727949-0.1 UNIT/GM-% Ointment as needed. acetaminophen 325 MG [...] by mouth daily., Disp: , Rfl: nystatin-triamcinolone 675154-8.1 UNIT/GM-% Ointment, as needed. , Disp: , [...] has No Known Allergies. [facility] History of Present illness Narrative* Jaswant Baldwin LPN - 04/06/2022 9:10 AM EDT Ortho Nurse - Established Patient Intake Room#: 1 4+ month left TILA A/L, some pain of 2, doing great Date: 04/06/2022 9:49 AM Patient: Siria Petty MR#: [id number] : 1950 Age: 71 y.o. Referring Physician: [...] Take 1 tablet by mouth daily. nystatin-triamcinolone 083878-8.1 UNIT/GM-% Ointment as needed. acetaminophen 325 MG [...] by mouth daily., Disp: , Rfl: nystatin-triamcinolone 058442-0.1 UNIT/GM-% Ointment, as needed. , Disp: , [...] 04/06/2022 9:49 AM Patient: Siria Petty MR#: [id number] : 1950 Age: 71 y.o. Referring Physician: [...] Take 1 tablet by mouth daily. nystatin-triamcinolone 146468-5.1 UNIT/GM-% Ointment as needed. acetaminophen 325 MG [...] by mouth daily., Disp: , Rfl: nystatin-triamcinolone 446760-1.1 UNIT/GM-% Ointment, as needed. , Disp: , [...] has No Known Allergies. documented in this [facility]02-09-2022 History of Present illness Narrative* Doug Sahni APRN-SISTER SUPERIOR - 01/10/2022 2:20 PM EST SUBJECTIVE: Siria [...] scheduled 4-month appointment or sooner as necessary. (DOC:[id number]) I have reviewed the findings of the clinical client application support specialist and agree with their assessment. EDY Parra No notes on file documented in this [facility]01-06-2022 History of Present illness Narrative* EDY [...] visit. All pertinant portions of the clinical client application support specialist documentation was reviewed. EDY Parra I have reviewed the findings of the clinical client application support specialist and agree with their assessment. EDY Parra Ortho Nurse Established Patient Intake Room#: 4 Date: 12/07/2021 2:25 PM Patient: Siria Petty MR#: [id number] : 1950 Age: 71 y.o. 3wk S/P L TILA Pt states she doing good but sometimes she goes to get up and she says it feels like it sticks or locks and has to relax and denies any pain at this time.0/10 on the pain scale. Pt was wearing her tonia hose and using a walker at the time of visit. Referring Physician: Doug Sahni APRN-CNP Insurance: Payor: MEDICARE / Plan: [...] Take 1 tablet by mouth daily. nystatin-triamcinolone 867754-8.1 UNIT/GM-% Ointment as needed. omeprazole 20 MG [...] by mouth daily., Disp: , Rfl: nystatin-triamcinolone 151043-8.1 UNIT/GM-% Ointment, as needed. , Disp: , [...] 12/07/2021 2:25 PM Patient: Siria Petty MR#: [id number] : 1950 Age: 71 y.o. 3wk S/P L TILA Pt states she doing good but sometimes she goes to get up and she says it feels like it sticks or locks and has to relax and denies any pain at this time.0/10 on the pain scale. Pt was wearing her tonia hose and using a walker at the time of visit. Referring Physician: Doug Sahni APRN-CNP Insurance: Payor: MEDICARE / Plan: [...] Take 1 tablet by mouth daily. nystatin-triamcinolone 315475-6.1 UNIT/GM-% Ointment as needed. omeprazole 20 MG [...] by mouth daily., Disp: , Rfl: nystatin-triamcinolone 594177-3.1 UNIT/GM-% Ointment, as needed. , Disp: , [...] has No Known Allergies. documented in this [facility]12-14-2021 Nurse Note* Yadira Salas RN - [...] Salas RN - 11/14/2021 4:30 PM EST Doug Sahni SISTER SUPERIOR notified of Hgb Hct results,no further orders. * Yadira Salas RN - 11/14/2021 3:30 PM EST Took 50% of regular tray w/o nausea. * Nicole Laurent RN - 11/14/2021 12:47 PM EST Patient transferred to PACU via bed with this nurse and POWER LINE INSTALLER. Bedside report given to ARTEMIO Quinones. * Nicole Laurent RN - 11/14/2021 11:36 AM EST OR room temp: 66.3 OR room humidity: 50 documented in this [facility]12-14-2021 History of Present illness Narrative* Trisha Shook PT - 11/14/2021 6:59 PM EST 11/14/211814 Time In/Out Time In 1815 Time Out 1853 Total Visit Time 38 minutes Total Treatment [...] Transfer Skill: Sit To Stand, Rehab Eval [place] (Sit-Stand Transfers) contact guard Physical Assist/Nonphysical Assist: Sit/Stand 1 person assist Weight-Bearing Restrictions: Sit/Stand toe touch weight-bearing Assistive Device For Transfer: Sit/Stand 2 wheeled walker Gait Skills, PT Eval Level of [place]: Gait contact guard Physical Assist/Nonphysical Assist: Gait 1 person assist Weight-Bearing Restrictions: Gait toe touch weight-bearing Assistive Device For Transfer: Gait 2 wheeled walker Gait Distance 50 feet Gait Analysis, PT Eval Gait Pattern Used swing-to gait Stair Negotiation [place] Level: Stair Negotiation contact guard assist Physical [...] from hospital following PT session. * Ashly Malik OT - 11/14/2021 3:53 PM EST 11/14/21 [...] Supine to Sit, Rehab Eval Level of [place]: Supine/Sit stand-by assist Physical Assist/Nonphysical Assist: Supine/Sit 1 person assist;verbal cues Transfer Skill: Sit to Stand, Rehab Eval Level of [place]: Sit/Stand contact guard Physical Assist/Nonphysical Assist: Sit/Stand 1 person assist Weight-Bearing Restrictions: Sit/Stand touch down weight-bearing Assistive Device for Transfer: Sit/Stand wheeled walker Upper Body Dressing Level of [place] independent Physical Assist/Nonphysical Assist set-up required Lower Body Dressing Level of [place] moderate assist (50% patients effort) Physical Assist/Nonphysical Assist 1 person assist (including TONIA hose) Assistive Device manager internal General Therapy Interventions Planned Therapy Interventions (OT Eval) ADL retraining;balance training;transfer training Clinical Impression Co-evaluation/co-treatment performed? Yes, combination of simultaneous billable and non-billable treatment Patient Instruction Pt instructed on LB dressing techniques utilizing manager internal to rodo underwear andshorts in sitting and standing with no LOB able to correct with walker for stability in standing. discuss with patient and spouse needing to have a raised toilet seat they are to call and anushka BSC. also instruct may have to sponge bathe until precautions are over due to sliding doors on tub/shower will follow up Rehab Potential (OT Eval) good, to achieve stated therapy goals Therapy Frequency 7 times a week Anticipated Equipment Needs at Discharge (OT Eval) bathing equipment;dressing equipment;raised toilet seat;tub bench;manager internal Today's Treatment Included Pt demonstrates moderate to [...] hygiene training Therapist Information License # [id number] 1. Pt will complete LB dressing min [...] 0.86 Docusate 100mg 4.00 APAP 325mg 4.00 [place] 5-325mg 1.80 Tramadol 50mg 1.35 Omeprazole 20mg 2.90 Ondansetron 4mg 4.00 Total $ 20.91 Patient Education Counseled patient on appropriate use and side effects of medications. Medications to be picked up in pharmacy Thaddeus Wallis PharmD [facility] [phone] * OSMEL Frazier - 11/14/2021 3:31 PM EST WORKFORCE SPECIALIST met with patient and spouse. OSMEL explained that it was recommended for the patient to dischargehome with home health services for CBC lab draw on 11/16 as well as 1 week of therapy for safety precaution awareness. WORKFORCE SPECIALIST was able to arrange services through [facility]. WORKFORCE SPECIALIST explained they would contact her to arrange [...] Supine to Sit, Rehab Eval Level of Cr[place]: Supine/Sit minimum assist (75% patients effort) Physical Assist/Nonphysical Assist: Supine/Sit 1 person assist Transfer Skill: Sit To Stand, Rehab Eval [place] (Sit-Stand Transfers) contact guard Physical Assist/Nonphysical Assist: Sit/Stand 1 person assist Weight-Bearing Restrictions: Sit/Stand toe touch weight-bearing Assistive Device For Transfer: Sit/Stand 2 wheeled walker Gait Skills, PT Eval Level of [place]: Gait contact guard Physical Assist/Nonphysical Assist: Gait [...] weight bearing status and use of leg motor and chassis inspector. Pt performed ankle pumps and quad [...] given as rescue opiate. documented in this [facility]12-14-2021 Hospital Discharge instructions* Instructions* Raina Maurice [...] pillow between legs Hip Precautions: Contact Office ([phone]) if: > Any falls or injuries > [...] [place] office is closed, you may call [phone] where you will be connected with an after hours orthopedic nurse that will be able to answer your questions. documented in this [facility]Good [facility] Center[facility] [phone] Miscellaneous Notes* Nursing Notes - Joni Ly RN - 11/14/2021 1:14 PM EST Discharged from PACU in stable condition at this time. Transported via cart to [facility] 6. Cart placed in lowest position. Call light within reach. Pulse ox monitor on pt with alarms set. Report radha Salas Rn. [facility] [id number] Instructions* Patient Instructions* Rocio Peña RN - 11/06/2021 7:[address] Lew's office will call you for your arrival time, 1-2 business days before your scheduled surgery. Please review your surgery checklist and bring your guide or booklet the day of surgery. Pre-Admission Testing Dept. [phone] Call if you have any changes in [...] Yellow - take the day of surgery [place] - hold according to the doctor's instructions [...] YOUR SURGERY Last Dose: Date Time nystatin-triamcinolone 049868-7.1 UNIT/GM-% Ointment NEEDED CONTINUE, but DO NOT take the morning of surgery. Last Dose: Date Time documented in this [facility]11-02[facility]2021 Evaluation note* Encounter Date Diagnosis Assessment [...] fatigue, but may also predispose to RLS [employer] Other Evaluation + Plan note No data available for this section [facility] Diagnosis Preop testing- Primary Preoperative examination, unspecified Primary osteoarthritis of left hip Primary localized osteoarthrosis, pelvic region and thigh [facility] Preop testing- Primary Preoperative examination, unspecified Abnormal coagulation profile Abnormal coagulation profile Encounter for preoperative screening laboratory testing for COVID-19 virus Primary osteoarthritis of left hip Primary localized osteoarthrosis, pelvic region and thigh Acute postoperative pain of left knee [facility]* Diagnosis Hx of total hip arthroplasty, left- Primary Hx of total hip arthroplasty, left- Primary documented in this encounter [facility]* Diagnosis Hx of total hip arthroplasty, left- Primary [facility] in this [facility]* Diagnosis Hx of total hip arthroplasty, left- Primary documented in this encounter [facility]* Diagnosis Hx of total hip arthroplasty, left- Primary Pain due to left hip joint prosthesis, sequela documented in this encounter [facility]* Diagnosis Trigger finger of left hand, unspecified finger- Primary documented in this encounter [facility]* Diagnosis Primary osteoarthritis of one hip, left- Primary documented in this encounter [facility] SystemEvaluation noteNo assessment information available[facility] Work Phone: Evaluation note* Diagnosis Primary osteoarthritis of left hip- Primary Primary localized osteoarthrosis, pelvic region and thigh documented in this encounter [facility] SystemHistory general Narrative - Reported* Type Description Date Medical History COPD Medical History ADRIANNA Medical History diastolic CHF with preserved EF Medical History Type II diabetes diet controlled [employer] Other History of Present illness Narrative* Rashmi [...] HEARING AIDS OR ANY TROUBLE HEARING [place] DIFFICULTY SWALLOWING no DENTAL APPLIANCES OR PROBLEMS (dentures, partials, loose teeth, missing teeth, broken teeth, caps or crowns) Dentures full BETA DONNIE USE yes STEROIDS IN THE PAST 2 YEARS no HISTORY OF BLOOD TRANSFUSION/REACTION no CULTURAL OR HINDU BELIEFS THAT WILL AFFECT CARE no DIETARY [...] verbalized understanding of instructions. documented in this [facility] Dis[facility] instructions No data available for this section [facility] No data available for this section [facility] HospitalReason for [facility] (narrative)* Consultation (Routine) - New Request Specialty Diagnoses / Procedures Referred By Arlet hall Referred To Contact Orthopaedics Diagnoses Hx of total hip arthroplasty, left Jeyson Lew MD [address] [place] [phone] Serafin Calles MD [address] [place] [phone] Referral ID Status Reason Start Date Expiration Date V isits Requested Visits Authorized [id number] New Request 08/01/2022 08/26/2023 1 1 * Medication Prior Authorization - Closed Specialty Diagnoses / Procedures Referred By Arlet hall Referred To Contact Jeyson Lew MD [address] [place] [phone] Referral ID Status Reason Start Date Expiration Date Visits Re quested Visits Authorized [id number] Closed 1 1 * Adjunctive Therapy (Routine) - New Request Specialty Diagnoses / Procedures Referred By Arlet hall Referred To Contact Physical Therapy Diagnoses Hx of total hip arthroplasty, left Pain due to left hip joint prosthesis, sequela Jeyson Lew MD [address] [place] [phone] Referral ID Status Reason Start Date Expiration Date V isits Requested Visits Authorized [id number] New Request 08/01/2022 08/26/2023 1 1 Scheduling Instructions . * Diagnostic X-Ray (Routine) - New Request Specialty Diagnoses / Procedures Referred By Contac t Referred To Contact Diagnoses Hx of total hip arthroplasty, left Procedures XR HIP WITH PELVIS LEFT Jeyson Lew MD [address] [place] [address] [phone] Referral ID Status Reason Start Date Expiration Date V isits Requested Visits Authorized [id number] New Request 07/20/2022 08/14/2023 1 1 [facility] for referral (narrative)* Consultation (Routine) - New Request Specialty Diagnoses / Procedures Referred By Contact Referred To Contact Physical Medicine & Rehabilitation Diagnoses Primary osteoarthritis of left hip Jeyson Lew MD [address] [place] [phone] Pb Rosas DO [address] [place] [phone] Referral ID Status Reason Start Date Expiration Date V isits Requested Visits Authorized [id number] New Request 12/12/2023 01/05/2025 1 1 * Diagnostic X-Ray (Routine) - New Request Specialty Diagnoses / Procedures Referred By Contac t Referred To Contact Diagnoses Primary osteoarthritis of left hip Procedures XR HIP WITH PELVIS LEFT Jeyson Lew MD [address] [place] [phone] Referral ID Status Reason Start Date Expiration Date V isits Requested Visits Authorized [id number] New Request 12/12/2023 01/05/2025 1 1 [facility] for visit Narrative* Auth/Cert Specialty Diagnoses / Procedures Referred By Contac t Referred To Contact Diagnoses Primary osteoarthritis of left hip Primary osteoarthritis of left hip [M16.12] Procedures DC TOTAL HIP ARTHROPLASTY ARTHROPLASTY HIP TOTAL LATERAL APPROACH Jeyson Lew MD [address] [place] [phone] Referral ID Status Reason Start Date Expiration Date Visits Re quested Visits Authorized [id number] 10/18/2021 1 1 [facility] Advance Directives No Advanced Directives Records [...] Referral Specialty Diagnoses / Procedures Referred By Contac t Referred To Contact Diagnoses Hx of total hip arthroplasty, left Procedures XR HIP WITH PELVIS LEFT Doug Sahni APRN-SISTER SUPERIOR [address] [place] [address] Referral ID Status Reason Start Date Expiration Date V isits Requested Visits Authorized [id number] New Request 11/30/2021 12/25/2022 1 1 Referral ID Status Reason Start Date Expiration Date V isits Requested Visits Authorized [id number] New Request 01/16/2022 02/10/2023 1 1 Specialty Diagnoses / Procedures Referred By Contac t Referred To Contact Diagnoses Hx of total hip arthroplasty, left Procedures XR HIP WITH PELVIS LEFT Jeyson Lew MD [address] [place] [address] Referral ID Status Reason Start Date Expiration Date V isits Requested Visits Authorized [id number] New Request 03/30/2022 04/24/2023 1 1 Summary [...] SAF Specialty Diagnoses / Procedures Referred By Contac t Referred To Contact Diagnoses Hx of total hip arthroplasty, left Procedures XR HIP WITH PELVIS LEFT Doug Sahni APRN-SISTER SUPERIOR [address] [place] [phone] Referral ID Status Reason Start Date Expiration Date V isits Requested Visits Authorized [id number] New Request 11/30/2021 12/25/2022 1 1 Reason Comments Post Op Visit Specialty Diagnoses / Procedures Referred By Contac t Referred To Contact Diagnoses Hx of total hip arthroplasty, left Procedures XR HIP WITH PELVIS LEFT Jeyson Lew MD [address] [place] [phone] Referral ID Status Reason Start Date Expiration Date V isits Requested Visits Authorized [id number] New Request 03/30/2022 04/24/2023 1 1 Referral ID Status Reason Start Date Expiration Date V isits Requested Visits Authorized [id number] New Request 07/20/2022 08/14/2023 1 1 Reason Comments Pain Reason Comments Consult Middle finger trigge ring Specialty Diagnoses / Procedures Referred By Contac t Referred To Contact Orthopaedics Diagnoses Hx of total hip arthroplasty, left Jeyson Lew MD [address] [place] [phone] Serafin Calles MD [address] [place] [address] [phone] Referral ID Status Reason Start Date Expiration Date V isits Requested Visits Authorized [id number] New Request 08/01/2022 08/26/2023 1 1 Referral ID Status Reason Start Date Expiration Date V isits Requested Visits Authorized [id number] New Request 11/21/2022 12/16/2023 1 1 Reason Comments Follow-up Specialty Diagnoses / Procedures Referred By Contac t Referred To Contact Diagnoses Primary osteoarthritis of left hip Procedures XR HIP WITH PELVIS LEFT Jeyson Lew MD [address] [place] [phone] Referral ID Status Reason Start Date Expiration Date V isits Requested Visits Authorized [id number] New Request 12/12/2023 01/05/2025 1 1 Reason Comments Pain Care Teams (unrecognized sec tion and content) Rotor Balancer Relationship Specialty Start Date End Date Tyshawn Hickman II, MD [address] [place] [address] PCP - General Internal Medicine 08/10/21 Rotor Balancer Relationship Specialty Start Date End Date Tyshawn Hickman II, MD [address] [place] [address] PCP - General Internal Medicine 08/10/21 Rotor Balancer Relationship Specialty Start Date End Date Tyshawn Hickman II, MD [address] [place] [address] PCP - General Internal Medicine 08/10/21 Rotor Balancer Relationship Specialty Start Date End Date Tyshawn Hickman II, MD [address] [place] [address] PCP - General Internal Medicine 08/10/21 Rotor Balancer Relationship Specialty Start Date End Date Tyshawn Hickman II, MD [address] [place] [address] PCP - General Internal Medicine 08/10/21 Rotor Balancer Relationship Specialty Start Date End Date Tyshawn Hickman II, MD [address] [place] [address] PCP - General Internal Medicine 08/10/21 Rotor Balancer Relationship Specialty Start Date End Date Tyshawn Hickman II, MD [address] [place] [address] PCP - General Internal Medicine 08/10/21 Rotor Balancer Relationship Specialty Start Date End Date Tyshawn Hickman II, MD [address] [place] [address] PCP - General Internal Medicine 08/10/21 Rotor Balancer Relationship Specialty Start Date End Date Tyshawn Hickman II, MD [address] [place] [address] PCP - General Internal Medicine 08/10/21 Rotor Balancer Relationship Specialty Start Date End Date Tyshawn Hickman II, MD [address] [place] [address] PCP - General Internal Medicine 08/10/21 Rotor Balancer Relationship Specialty Start Date End Date Tyshawn Hickman II, MD [address] [place], [place] [id number] PCP - General Internal Medicine 08/10/21 Team Status: Active Member Role Status Dates Tyshawn Hickman II MD Primary Care Provider Active Team Status: Inactive Member Role Status Dates Tyshawn Hickman II MD Primary Care Provider Active Pb Sanabria MD Attending Provider Active Rotor Balancer Relationship Specialty Start Date End Date Tyshawn Hickman II, MD [address] [place] [address] PCP - General Internal Medicine 08/10/21 Rotor Balancer Relationship Specialty Start Date End Date Tyshawn Hickman II, MD [address] [place] [address] PCP - General Internal Medicine 08/10/21 Scheduled Active and Recently Administ ered Medications [...] on Sat11/14/21 at 1300, Until Sat11/14/21 at 2113, Convert IV to PRN adapter post op day 1 if adequate oral intake, Post-op/Post-Proc 1814 (Stopped - Prov ider: Yadira Salas RN) PRN Medication Order 11/12/2021 11/13/2021 11/14/2021 bisacodyl (DULCOLAX) suppository 10 mg 10 mg, Rectal, DAILY NEEDED, Starting on Sat11/14/21 at 1254, Until Sat11/14/21 at 2113, constipation, Post-op/Post-Proc ceFAZolin (ANCEF) 2 g in dextrose 100 mL premix IVPB (COMPLETED) 2 g, Intravenous, Administer over 30 Minutes, GRINDER CHIPPER TO PROCEDURE, 1 dose, Starting on Sat11/14/21 at 0754, Until Discontinued, Other, Pre-operative antibiotic, For 15 Minutes, Pre-op/Pre-Proc 1051 (Given - Provid er: Jessica Rosa, CENTRIFUGAL DRIER OPERATOR-POWER LINE INSTALLER - Comment: PSR s/p negative test dose) [...] on Sat11/14/21 at 1254, Until Sat11/14/21 at 2114, Severe Pain, Post-op/Post-Proc ondansetron 4mg/2ml (ZOFRAN) injection 4 mg 4 mg, Intravenous, EVERY 4 HOURS NEEDED, Starting on Sat11/14/21 at 1254, Until Sat11/14/21 at 2113, Nausea / Vomiting, Post-op/Post-Proc senna-docusate (SENOKOT-S) 8.6-50 MG per tablet 2 tablet 2 tablet, Oral, 2 TIMES DAILY NEEDED, Starting on Sat11/14/21 at 1254, Until Sat11/14/21 at 4, constipation, Post-op/Post-Proc sodium chloride 0.9 % irrigation NEEDED, Starting on Sat11/14/21 at 1119, Until Sat11/14/21 at 2113, Intra-op/Intra-Proc 1119 (Given - Provid er: Jeyson Lew MD - Comment: 1500 on sterile field) sodium phosphate w/sodium biphosphate (FLEETS) enema 1 enema 1 enema, Rectal, DAILY NEEDED, Starting on Sat11/14/21 at 1254, Until Sat11/14/21 at 2114, Refractory Constipation, use per package instructions, Post-op/Post-Proc traMADol (ULTRAM) tablet 50-100 mg 50-100 mg, Oral, EVERY 6 HOURS NEEDED, Starting on Sat11/14/21 at 1254, Until Sat11/14/21 at 4, Mild Pain, Moderate Pain, Post-op/Post-Proc vancomycin (VANCOCIN) injection NEEDED, Starting on Sat11/14/21 at 1207, Until Sat11/14/21 at 2113, Intra-op/Intra-Proc 1207 (Given - Provid er: Jeyson Lew MD - Comment: Intraoperatively) zolpidem (AMBIEN) tablet 5 mg 5 mg, Oral, DAILY AT BEDTIME NEEDED, Starting on Sat11/14/21 at 2100, Until Sat11/14/21 at 4, Sleep, Post-op/Post-Proc INFORMATION SOURCE (unrecogn ized section and content) DATE CREATED AUTHOR 10/17/2022 [facility] dical Specialist DATE CREATED AUTHOR AUTHOR'S ORGANIZ ATION 03/08/2023 [facility] DATE CREATED AUTHOR AUTHOR'S ORGANIZ ATION 10/12/2023 [facility] DATE CREATED AUTHOR AUTHOR'S ORGANIZ ATION 12/06/2023 [facility] DATE CREATED AUTHOR AUTHOR'S ORGANIZ ATION 12/20/2023 [facility] DATE CREATED AUTHOR AUTHOR'S ORGANIZ ATION 03/12/2024 [facility] dical Specialists EPIC Goals (unrecognized section and content) Goals may [...] BE BASED ON THE PRIMARY CLINICAL RECORDS. [facility]. provides no warranty or guarantee of the accuracy or completeness of information in this document.
--- NOTE | 2024-06-25 14:04 | P.CN_ITS ---
Consult Note: HPI Data of Consult Patient: new to practice Requesting Physician: Stormy Reyes NP Primary Care Provider: BRIANDA MILLER Consult Narrative Reason for consult: establish Narrative: Siria Petty a pleasant 74 year old female presents for evaluation and management of chronic low back pain with pain radiating into left hip and left leg. Pain 6/10 increasing to 10/10 with standing walking and sleep, improved with rest. Failed tylenol, cannot take NSAIDs as she has had gastric bypass surgery. Has engaged in provider guided HEP greater than 6 weeks with worsening of her pain. denies loss of bowel/bladder. hx of lumbar bulging discs that responded well to ESIs in the past, unknown when last injection was. No recent imaging available for review. cc:: CC: Stormy Reyes NP Review of Systems ROS Status of ROS 10 or more systems reviewed and unremark able except as noted in history and below Musculoskeletal Reports: back pain PFSH PFS Medical History (Updated 06/25/24 @ 14:17 by Stormy Reyes NP) Iron deficiency anemia ?D50.9 - Iron deficiency anemia, unspecified (ICD-10) Type 2 diabetes mellitus with hyperglycemia ?E11.65 - Type 2 diabetes mellitus with hyperglycemia (ICD-10) Left sided sciatica ?M54.32 - Sciatica, left side (ICD-10) CAD (coronary artery disease) ?I25.10 - Atherosclerotic heart disease of [place] coronary artery without angina pectoris (ICD-10) Chronic heart failure with preserved ejection fraction (HFpEF) ?I50.32 - Chronic diastolic (congestive) heart failure (ICD-10) HTN (hypertension) ?I10 - Essential (primary) hypertension (ICD-10) COPD (chronic obstructive pulmonary disease) ?J44.9 - Chronic obstructive pulmonary disease, unspecified (ICD-10) Acute pelvic pain ?R10.2 - Pelvic and perineal pain (ICD-10) Diabetic acidosis, type I ?E10.10 - Type 1 diabetes mellitus with ketoacidosis without coma (ICD-10) Asthma ?J45.909 - Unspecified asthma, uncomplicated (ICD-10) Surgical History H/O lithotripsy ?Z98.890 - Other specified postprocedural states (ICD-10) Gastric bypass status for obesity ?Z98.84 - Bariatric surgery status (ICD-10) History of total left hip arthroplasty ?Z96.642 - Presence of left artificial hip joint (ICD-10) Family History Sister Family history of cancer Family history of diabetes mellitus Mother Family history of diabetes mellitus Family history of hypertension Social History Smoking status: Former smoker Second hand tobacco smoke exposure: No Non-prescribed substance use: denies use Previous occupational history: retired Known occupational exposures/hazards: No Highest level of school completed/degree received: high school graduate Do you want help with school or training: No Are you now , , , , never or living with a partner: In a typical week, how many times do you talk on the telephone with family, friends, or neighbors: 3 or more times per week How often do you get together with friends or relatives: 3 or more times per week How often do you attend alevism or catholic services: 4 or more times per year Do you belong to any clubs or organizations such as alevism groups unions, [employer] or athletic groups, or school groups: no Total score: 3 Score interpretation: A score of greater than or equal to 2 indicates the lowest level of social isolation. Little interest or pleasure in doing things: not at all Feeling down, depressed, or hopeless: not at all Feel stressed/tense/nervous/anxious/difficulty sleeping: not at all Due to disability, difficulty making decisions: No Do you think of yourself as: straight/heterosexual Gender Identity: female Meds Home Medications and Allergies Home Medications ?Medication ?Instructions ?Recorded ?Confirmed ?Type alendronate 70 mg tablet 70 mg PO QWEEK 12/01/23 12/01/23 History amoxicillin 875 mg-potassium 1 tab PO BID 12/01/23 12/01/23 History clavulanate 125 mg tablet aspirin 81 mg tablet,delayed 81 mg PO DAILY 12/01/23 12/01/23 History release (Adult Low Dose Aspirin) atorvastatin 40 mg tablet 40 mg PO DAILY 12/01/23 12/01/23 History cetirizine 10 mg tablet 10 mg PO DAILY PRN allergy symptoms 12/01/23 12/01/23 History cholecalciferol (vitamin D3) 125 125 mcg PO DAILY 12/01/23 12/01/23 History mcg (5,000 unit) tablet (Vitamin D3) cyanocobalamin (vitamin B-12) 500 500 mcg PO BID 12/01/23 12/01/23 History mcg tablet (Vitamin B-12) famotidine 20 mg tablet 20 mg PO BID 12/01/23 12/01/23 History fluticasone propionate 50 2 spray intranasal DAILY 12/01/23 12/01/23 History mcg/actuation nasal spray,suspension furosemide 20 mg tablet 20 mg PO DAILY 12/01/23 12/01/23 History ipratropium 0.5 mg-albuterol 3 mg 3 ml inhalation BID 12/01/23 12/01/23 History (2.5 mg base)/3 mL nebulization soln metformin 500 mg tablet 500 mg PO TID 12/01/23 12/01/23 History metoprolol succinate 25 mg 25 mg PO DAILY 12/01/23 12/01/23 History tablet,extended release 24 hr multivitamin (Daily Multi-Vitamin 1 tab PO DAILY 12/01/23 12/01/23 History tablet) levofloxacin 750 mg tablet 750 mg PO DAILY 7 days #7 tabs 12/02/23 Rx Allergies Allergy/AdvReac Type Severity Reaction Status Date / Time No Known Drug Allergies Allergy Verified 12/01/23 15:11 Exam Constitutional Documenting provider has reviewed patient's vital signs: yes Common normals: no apparent distress, oriented x3, healthy appearing, alert and well nourished General appearance: cooperative [facility] Common normals: normocephalic, hearing grossly normal bilaterally and moist oral mucous membranes Head and scalp: normocephalic Eye Common normals: PERRL Pupil: PERRL Neck & C-Spine Common normals: full ROM General: normal visual inspection Chest Common normals: inspection of chest normal Respiratory Common normals: normal respiratory effort, no retractions and no use of accessory muscles Back & Pelvis Lumbar spine/lower back: ROM limited and pain with ROM Sacroiliac joints: SI joint(s) abnormal Other: left SIJ positive sakshi(patricks), gaenslens, thigh thrust, compression test decreased sensation to left L4,5,S1 pattern strength 4/5 in LLE 5/5 in RLE Extremity Common normals: normal to inspection and full ROM Neuro Common normals: oriented x3, CN's II-XII intact bilaterally, moves all extremities, no focal motor deficits, no sensory deficits noted and deep tendon reflexes 2+ bilaterally Sensorium/orientation: alert Gait (neuro): antalgic Motor exam: no movement abnormalities noted and strength abnormal Psych Common normals: mental status grossly normal, thought process normal, cooperative, affect normal, speech normal and activity/motor behavior normal Speech: normal speech Thought process: normal thought process Results Additional Findings Additional findings: If on a controlled substance or opioids, I have checked an [place]AR[place] report on this patient and there are no aberrancies noted in the prescribing history.??If on a controlled substance or opioid a drug screen was completed and reviewed within the last year, and if there has not been a drug screen completed we ordered one today to monitor higher risk, state monitored pain medication use. As part of providing excellent, safe, comprehensive care, the following was completed at our patient's visit: 1. A medication reconciliation and review to ensure accurate knowledge of current/active medications, including asking our patients to inform us about any kujw-yyw-hpxdgci medications or herbal remedies/nutritional supplements/alternative remedies. 2. A review to specifically ensure our patients have had annual screening for screening for depression, screening for tobacco use, and screening for unhealthy alcohol use. For concerning screenings had a discussion with the patient, provided patient education, and recommended follow-up with primary care provider when appropriate. If patient noted with a risk of falling, they received education on strength, gait, and balance training to prevent future risk of falling. Assessment and Plan Assessment and Plan (1) Lumbar stenosis with neurogenic claudication: (2) Sacroiliitis: (3) Lumbar radiculopathy: Plan update lumbar xray with flexion and extension to evaluate chronic low back pain and lumbar stability update lumbar MRI without contrast to evaluate lumbar radiculopathy and lumbar stenosis with NC unresponsive to HEP greater than 6 weeks and conservative medications defer UDS f/u to review imaging
== END 2024-06-25 13:35 | disposition home or self-care (01) ==
PROVIDERS: PCP Internal Medicine; Visit Provider Nurse Practitioner
DX: M48.062 Spinal stenosis, lumbar region with neurogenic claudication (principal); M46.1 Sacroiliitis, not elsewhere classified; M54.16 Radiculopathy, lumbar region
CPT/HCPCS: G0463

== ENCOUNTER 2024-07-03 08:16 | Outpatient (OUT) | payer MEDICARE, SELFPAY ==
--- OUTSIDE RECORDS SUMMARY | 2024-07-03 08:19 | XMS_ITS | CCD ---
Author Organization [facility] ion Partnership [facility] Care Team Providers Care Logistic Manager Name Role Phone Vick KRAUS MD, Tyshawn Primary Care Provider Pb Sanabria Vick KRAUS MD, Tyshawn Primary Care Provider [phone] ALEXANDRA BELCHER Consulting Unavailable VICK, DR LAMAR Primary Care [...] Care Unavailable TYSHAWN HICKMAN Primary Care Physician [phone] Timmis, Jose Cruz H Referring Unavailable Timmis, Jose Cruz H Attending Unavailable SusannesJose Cruz H Admitting Unavailable Vick KRAUS MD, Daniel Primary Care Provider [phone] JEYSON LEW Attending Unavailable ADALI, JEYSON Referring [...] sources) Cat Hair Extract Drug Allergy 05-31-2023 [facility] [facility] Medications Current Medications Medication Drug Class(es) [...] acid 7540 MG / polyethylene glycol 3350 41284 MG / potassium chloride 1200 MG / sodium ascorbate 40266 MG / sodium chloride 3200 MG Powder for Oral Solution) / 1 (polyethylene glycol 3350 142729 MG / potassium chloride 1000 MG / [...] (14 sources) Polyene Antifungal, Corticosteroid nystatin-triamcinolo [place] 257400-9.1 UNIT/GM-% Ointment as needed. 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) drug therapy; Translations: [OTH ALF CURRENT DRUG THERAPY] Onset: 10-04-2022 Episodic Other aftercare (1 source) 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; Translations: [MANAGER OF DEVELOPMENT USE ORAL HYPOGLYCEMIC DX] Onset: 10-04-2022 Episodic [...] 024 CRP [Mass/Vol] 5.5 mg/L Normal 0-10 [facility] Comment on above: Performed By: #### E SR, CREACT #### Testing performed at [address] [address] CRP [Mass/Vol] 5.5 mg/L 0 - 10 MG/L [facility] ESRon 12-12-2023 ESR (Bld) [Velocity] 29 mm/h Normal 0-30 [facility] Comment on above: Performed By: #### E SR, CREACT #### Testing performed at [address] [address] SEDIMENTATION RATE, AUTOMATE Don 12-12-2023 ESR (Bld) [Velocity] 29 mm/h [employer] [facility] CT Maxillofacial w/o Contras ton 12-05-2023 [...] Abdul MD Transcribed by: YAZ Technologist: NATALY [facility] Consent for Treatmenton Consent for Treatment [id number] 0TIFF [facility] Physician Orderon 11-14-2023 Physician Order [id number] 0TIFF [facility] Physician Order [id number] 0TIFF [facility] MG MAMM SCREEN 3D NGOC CADon 02-28-2023 MG MAMM SCREEN 3D NGOC CAD Patient: SIRIA PETTY Exam Date: 02/28/2023 : 1950 Gender:F Ordering : DR TYSHAWN HICKMAN M.D. Admission #: [id number] Family : Order #: [id number] CLICK HERE TO VIEW EXAM RADIOLOGY REPORT [...] Treatments None Family Cancers None LOCATION: [facility] BREAST COMPOSITION: Almost entirely fatty. FINDINGS: [...] MD on 02/28/2023 at 14:23 Normal [facility] XR DEXA BONE DENSITYon 02-28 XR [...] PB MCBRIDE Date: 2023-02-28 15:36 Normal [facility] US Venous, Unilat, Lower Ext Righton [...] by Berhane Fernandez on 10/17/2022 1156 Normal [facility] Product Delivery Specialist XR HIP LT 2 3V W PELVISon [...] SOPHIA STEWART Date: 2022-10-03 00:50 Normal [facility] UPPER EXTREMITY INJECTION: L long A1on [...] fashion. The patient was prepped with alcohol. [facility] Radiology Study observation (narrative) [facility] MG MAMM DX 3D RT CADon 06-07 MG MAMM DX 3D RT CAD Patient: SIIRA PETTY Exam Date: 06/07/2022 : 1950 Gender:F Ordering : DR TYSHAWN HICKMAN M.D. Admission #: [id number] Family : Order #: [id number] CLICK HERE TO VIEW EXAM RADIOLOGY REPORT [...] Treatments None Family Cancers None LOCATION: [facility] BREAST COMPOSITION: Almost entirely fatty. FINDINGS: [...] M.D. on 06/07/2022 at 15:44 Normal [facility] CBC AUTO DIFFon 05-26-2022 BASO # 0.0 103/ul Normal 0.0-0.1 [facility] Comment on above: Performed By: #### C BC #### [facility] [address] [address] [address] Francesca Ortiz Basophils/100 WBC (Bld) 0.5 % Normal 0.2-2.0 [facility] Comment on above: Performed By: #### C BC #### [facility] [address] [address] [address] Francesca Ortiz EO # 0.1 103/ul Normal 0.0-0.7 [facility] Comment on above: Performed By: #### C BC #### [facility] [address] [place] [address] Dr. Francesca Ortiz Eosinophils/100 WBC (Bld) 1.9 % Normal 0.9-7.0 [facility] Comment on above: Performed By: #### C BC #### [facility] [address] [place] [address] Dr. Francesca Ortiz Erythrocyte distribution width (RBC) [Ratio] 13.5 % Normal 11.0-15.0 [facility] Comment on above: Performed By: #### C BC #### [facility] [address] [place] [address] Dr. Francesca Ortiz Hematocrit (Bld) [Volume fraction] 35.7 % Critically low 36.0-48.0 [facility] Comment on above: Performed By: #### C BC #### [facility] [address] [place] [address] Dr. Francesca Ortiz Hemoglobin (Bld) [Mass/Vol] 11.3 g/dL Critically low 12.0-16.0 [facility] Comment on above: Performed By: #### C BC #### [facility] [address] [place] [address] Dr. Francesca Ortiz IG # 0.01 10e3/ul Normal 0.00-0.03 [facility] Comment on above: Performed By: #### C BC #### [facility] [address] [place] [address] Dr. Francesca Ortiz IG % 0.2 % Normal 0.0-0.5 [facility] Comment on above: Performed By: #### C BC #### [facility] [address] [place] [address] Dr. Francesca Ortiz LYMPH # 1.7 103/ul Normal 1.2-3.8 [facility] Comment on above: Performed By: #### C BC #### [facility] [address] [place] [address] Dr. Francesca Ortiz Lymphocytes/100 WBC (Bld) 27.9 % Normal 20.5-60.0 [facility] Comment on above: Performed By: #### C BC #### [facility] [address] [place] [address] Dr. Francesca Ortiz MANUAL DIFF REQ NO Normal [facility] Comment on above: Performed By: #### C BC #### [facility] [address] [place] [address] Dr. Francesca Ortiz MCH (RBC) [Entitic mass] 29.9 pg Normal 26.7-34.0 [facility] Comment on above: Performed By: #### C BC #### [facility] [address] [place] [address] Dr. Francesca Ortiz MCHC (RBC) [Mass/Vol] 31.7 g/dL Normal 29.9-35.2 [facility] Comment on above: Performed By: #### C BC #### [facility] [address] [place] [address] Dr. Francesca Ortiz MCV (RBC) [Entitic vol] 94.4 fL Normal 81.0-99.0 [facility] Comment on above: Performed By: #### C BC #### [facility] [address] [place] [address] Dr. Francesca Ortiz MONO # 0.6 103/ul Normal 0.3-0.8 [facility] Comment on above: Performed By: #### C BC #### [facility] [address] [place] [address] Dr. Francesca Ortiz Monocytes/100 WBC (Bld) 9.9 % Normal 1.7-12.0 [facility] Comment on above: Performed By: #### C BC #### [facility] [address] [place] [address] Dr. Francesca Ortiz NEUT # 3.5 103/ul Normal 1.4-6.5 [facility] Comment on above: Performed By: #### C BC #### [facility] [address] [place] [address] Dr. Francesca Ortiz Neutrophils/100 WBC (Bld) 59.6 % Normal 43.0-75.0 [facility] Comment on above: Performed By: #### C BC #### [facility] [address] [place] [address] Dr. Francesca Ortiz Platelet mean volume (Bld) [Entitic vol] 10.7 fL Normal 9.5-13.5 [facility] Comment on above: Performed By: #### C BC #### [facility] [address] [place] [address] Dr. Francesca Ortiz PLT 131 103/ul Critically low 150-450 [facility] Comment on above: Performed By: #### C BC #### [facility] [address] [place] [address] Dr. Francesca Ortiz RBC 3.78 106/ul Critically low 4.20-5.40 [facility] Comment on above: Performed By: #### C BC #### [facility] [address] [place] [address] Dr. Francesca Ortiz WBC 5.9 103/ul Normal 4.0-11.0 [facility] Comment on above: Performed By: #### C BC #### [facility] [address] [place] [address] Dr. Francesca Ortiz PROF 14(COMP METB)on 022 Albumin [Mass/Vol] 3.6 g/dL Normal 3.4-5.0 [facility] Comment on above: Performed By: #### C MP #### [facility] [address] [place] [address] Dr. Francesca Ortiz Albumin/Globulin [Mass ratio] 1.1 {ratio} Normal [facility] Comment on above: Performed By: #### C MP #### [facility] [address] [address] [address] Francesca Ortiz ALP [Catalytic activity/Vol] 93 U/L Normal 46-116 [facility] Comment on above: Performed By: #### C MP #### [facility] [address] [address] [address] Francesca Ortiz ALT [Catalytic activity/Vol] 33 U/L Normal 14-59 [facility] Comment on above: Performed By: #### C MP #### [facility] [address] [address] [address] Francesca Ortiz Anion gap [Moles/Vol] 13.2 mmol/L Normal [facility] Comment on above: Performed By: #### C MP #### [facility] [address] [place] [address] Dr. Francesca Ortiz AST [Catalytic activity/Vol] 34 U/L Normal 15-37 [facility] Comment on above: Performed By: #### C MP #### [facility] [address] [place] [address] Dr. Francesca Ortiz Bilirubin [Mass/Vol] 0.5 mg/dL Normal 0.2-1.0 [facility] Comment on above: Performed By: #### C MP #### [facility] [address] [place] [address] Dr. Francesca Ortiz Calcium [Mass/Vol] 9.0 mg/dL Normal 8.5-10.1 [facility] Comment on above: Performed By: #### C MP #### [facility] [address] [place] [address] Dr. Francesca Ortiz Chloride [Moles/Vol] 104 mmol/L Normal 98-107 [facility] Comment on above: Performed By: #### C MP #### [facility] [address] [address] [address] Francesca Ortiz CO2 [Moles/Vol] 27.2 mmol/L Normal 21.0-32.0 [facility] Comment on above: Performed By: #### C MP #### [facility] [address] [address] [address] Francesca Ortiz Creatinine [Mass/Vol] 0.92 mg/dL Normal 0.55-1.02 [facility] Comment on above: Performed By: #### C MP #### [facility] [address] [address] [address] Francesca Ortiz EGFR-AF SWISS >60 Normal >=60 [facility] Comment on above: Performed By: #### C MP #### [facility] [address] [address] [address] Francesca Ortiz EGFR-NON AF SWISS =60 Normal >=60 [facility] Comment on above: Performed By: #### C MP #### [facility] [address] [place] [address] Dr. Francesca Ortiz Globulin (S) [Mass/Vol] 3.4 g/dL Normal [facility] Comment on above: Performed By: #### C MP #### [facility] [address] [place] [address] Dr. Francesca Ortiz Glucose [Mass/Vol] 113 mg/dL Critically high 74-106 [facility] Comment on above: Performed By: #### C MP #### [facility] [address] [place] [address] Dr. Francesca Ortiz Potassium [Moles/Vol] 4.4 mmol/L Normal 3.5-5.1 [facility] Comment on above: Performed By: #### C MP #### [facility] [address] [place] [address] Dr. Francesca Ortiz Protein [Mass/Vol] 7.0 g/dL Normal 6.4-8.2 [facility] Comment on above: Performed By: #### C MP #### [facility] [address] [place] [address] Dr. Francesca Ortiz Sodium [Moles/Vol] 140 mmol/L Normal 136-145 [facility] Comment on above: Performed By: #### C MP #### [facility] [address] [place] [address] Dr. Francesca Ortiz Urea nitrogen [Mass/Vol] 17.0 mg/dL Normal 7.0-18.0 [facility] Comment on above: Performed By: #### C MP #### [facility] [address] [place] [address] Dr. Francesca Ortiz Urea nitrogen/Creatinine [Mass ratio] 18.5 mg/mg Normal [facility] Comment on above: Performed By: #### C MP #### [facility] [address] [place] [address] Dr. Francesca Ortiz XR HIP LT 2 [...] LUKE BLACKWOOD Date: 2022-05-26 15:55 Normal [facility] CBC AUTO DIFFon 05-10-2022 BASO # 0.0 103/ul Normal 0.0-0.1 [facility] Comment on above: Performed By: #### C BC #### [facility] [address] [place] [address] Dr. Francesca Ortiz Basophils/100 WBC (Bld) 0.4 % Normal 0.2-2.0 [facility] Comment on above: Performed By: #### C BC #### [facility] [address] [place] [address] Dr. Francesca Ortiz EO # 0.1 103/ul Normal 0.0-0.7 [facility] Comment on above: Performed By: #### C BC #### [facility] [address] [place] [address] Dr. Francesca Ortiz Eosinophils/100 WBC (Bld) 1.8 % Normal 0.9-7.0 [facility] Comment on above: Performed By: #### C BC #### [facility] [address] [place] [address] Dr. Francesca Ortiz Erythrocyte distribution width (RBC) [Ratio] 13.9 % Normal 11.0-15.0 [facility] Comment on above: Performed By: #### C BC #### [facility] [address] [place] [address] Dr. Francesca Ortiz Hematocrit (Bld) [Volume fraction] 36.8 % Normal 36.0-48.0 [facility] Comment on above: Performed By: #### C BC #### [facility] [address] [place] [address] Dr. Francesca Ortiz Hemoglobin (Bld) [Mass/Vol] 11.7 g/dL Critically low 12.0-16.0 [facility] Comment on above: Performed By: #### C BC #### [facility] [address] [place] [address] Dr. Francesca Ortiz IG # 0.01 10e3/ul Normal 0.00-0.03 [facility] Comment on above: Performed By: #### C BC #### [facility] [address] [place] [address] Dr. Francesca Ortiz IG % 0.2 % Normal 0.0-0.5 [facility] Comment on above: Performed By: #### C BC #### [facility] [address] [place] [address] Dr. Francesca Ortiz LYMPH # 1.6 103/ul Normal 1.2-3.8 [facility] Comment on above: Performed By: #### C BC #### [facility] [address] [place] [address] Dr. Francesca Ortiz Lymphocytes/100 WBC (Bld) 31.5 % Normal 20.5-60.0 [facility] Comment on above: Performed By: #### C BC #### [facility] [address] [place] [address] Dr. Francesca Ortiz MANUAL DIFF REQ NO Normal [facility] Comment on above: Performed By: #### C BC #### [facility] [address] [place] [address] Dr. Francesca Ortiz MCH (RBC) [Entitic mass] 30.0 pg Normal 26.7-34.0 [facility] Comment on above: Performed By: #### C BC #### [facility] [address] [place] [address] Dr. Francesca Ortiz MCHC (RBC) [Mass/Vol] 31.8 g/dL Normal 29.9-35.2 [facility] Comment on above: Performed By: #### C BC #### [facility] [address] [place] [address] Dr. Francesca Ortiz MCV (RBC) [Entitic vol] 94.4 fL Normal 81.0-99.0 [facility] Comment on above: Performed By: #### C BC #### [facility] [address] [place] [address] Dr. Francesca Ortiz MONO # 0.6 103/ul Normal 0.3-0.8 [facility] Comment on above: Performed By: #### C BC #### [facility] [address] [place] [address] Dr. Francesca Ortiz Monocytes/100 WBC (Bld) 11.0 % Normal 1.7-12.0 [facility] Comment on above: Performed By: #### C BC #### [facility] [address] [place] [address] Dr. Francesca Ortiz NEUT # 2.8 103/ul Normal 1.4-6.5 [facility] Comment on above: Performed By: #### C BC #### [facility] [address] [place] [address] Dr. Francesca Ortiz Neutrophils/100 WBC (Bld) 55.1 % Normal 43.0-75.0 [facility] Comment on above: Performed By: #### C BC #### [facility] [address] [place] [address] Dr. Francesca Ortiz Platelet mean volume (Bld) [Entitic vol] 11.0 fL Normal 9.5-13.5 [facility] Comment on above: Performed By: #### C BC #### [facility] [address] [address] [address] Francesca Ortiz PLT 136 103/ul Critically low 150-450 [facility] Comment on above: Performed By: #### C BC #### [facility] [address] [address] [address] Francesca Ortiz RBC 3.90 106/ul Critically low 4.20-5.40 [facility] Comment on above: Performed By: #### C BC #### [facility] [address] [address] [address] Francesca Ortiz WBC 5.1 103/ul Normal 4.0-11.0 [facility] Comment on above: Performed By: #### C BC #### [facility] [address] [address] [address] ABD/PELV W CONon [...] CHEN ZAMORANO Date: 2022-05-10 15:30 Normal [facility] PROF CHEM 8 (BAS METB)on Anion gap [Moles/Vol] 9.9 mmol/L Normal [facility] Comment on above: Performed By: #### B MP #### [facility] [address] [place] [address] Dr. Francesca Ortiz Calcium [Mass/Vol] 9.5 mg/dL Normal 8.5-10.1 [facility] Comment on above: Performed By: #### B MP #### [facility] [address] [address] [address] Francesca Ortiz Chloride [Moles/Vol] 104 mmol/L Normal 98-107 [facility] Comment on above: Performed By: #### B MP #### [facility] [address] [address] [address] Francesca Ortiz CO2 [Moles/Vol] 27.2 mmol/L Normal 21.0-32.0 [facility] Comment on above: Performed By: #### B MP #### [facility] [address] [address] [address] Francesca Ortiz Creatinine [Mass/Vol] 0.88 mg/dL Normal 0.55-1.02 [facility] Comment on above: Performed By: #### B MP #### [facility] [address] [address] [address] Francesca Ortiz EGFR-AF SWISS >60 Normal >=60 [facility] Comment on above: Performed By: #### B MP #### [facility] [address] [address] [address] Francesca Ortiz EGFR-NON AF SWISS >60 Normal >=60 [facility] Comment on above: Performed By: #### B MP #### [facility] [address] [address] [address] Francesca Ortiz Glucose [Mass/Vol] 111 mg/dL Critically high 74-106 [facility] Comment on above: Performed By: #### B MP #### [facility] [address] [address] [address] Francesca Ortiz Potassium [Moles/Vol] 4.1 mmol/L Normal 3.5-5.1 [facility] Comment on above: Performed By: #### B MP #### [facility] [address] [address] [address] Francesca Ortiz Sodium [Moles/Vol] 137 mmol/L Normal 136-145 [facility] Comment on above: Performed By: #### B MP #### [facility] [address] [address] [address] Francesca Ortiz Urea nitrogen [Mass/Vol] 17.0 mg/dL Normal 7.0-18.0 [facility] Comment on above: Performed By: #### B MP #### [facility] [address] [address] [address] Francesca Ortiz Urea nitrogen/Creatinine [Mass ratio] 19.3 mg/mg Normal [facility] Comment on above: Performed By: #### B MP #### [facility] [address] [address] [address] Francesca Ortiz GLUCOSE (POC DEVICE)on 11-14 GLUCOSE, POINT OF CARE 169 [facility] Interpretation and review of laboratory results Abnormal [facility] Manager Filter [id number] [facility] HEMOGLOBIN & HEMATOCRITon Hematocrit (Bld) [Volume fraction] 34.9 % Low 36.0 - 48.0 % [facility] Hemoglobin (Bld) [Mass/Vol] 11.2 g/dL Low [facility] Interpretation and review of laboratory results Abnormal [facility] NOVEL CORONAVIRUS LAB 1 - NA SOPHARYNGEALon 11-14-2021 NARRATIVE -1 This test was performed using isothermal GIO and has been approved as Emergency Use Authorization (EUA) for the qualitative detection egEKPB-VlR-2 nucleic acid. [facility] SARS-CoV-2 (COVID-19) RNA GIO+probe Ql (Unsp spec) Not detected NOT DETECTED [facility] Comment on above: Negative results do [...] patient is critically ill or clinically deteriorating. [facility] PROTIME-INRon 11-14-2021 INR Coag (PPP) [Relative time] 1.15 {INR} High [facility] Comment on above: 2.0-3.0 THERAPEUTIC RANGE 2.5-3.5 MECHANICAL VALVE RANGE Interpretation and review of laboratory results Abnormal [facility] PT Coag (PPP) [Time] 14.9 s High [facility] TYPE AND SCREEN - POSSIBLE T RANSFUSIONon 11-14-2021 ABO and Rh group Nom (Bld ) Positive [facility] ARM BAND NUMBER [id number] [facility] Blood group antibody screen Ql Negative [facility] EXPIRATION DATE 11/17/2021,5392 [facility] XR PELVIS AP ONLYon 11-14-20 21 IMPRESSION: [...] or dislocations. IMPRESSION IMPRESSION: Routine postoperative changes. [facility] Radiology Study observation (narrative) [facility] XR PELVIS AP ONLYOrdered By: Mohini Ramirez on 11-14-2021 [facility] Work Phone: Complete Blood Counton 11-07 Erythrocyte distribution width (RBC) [Ratio] 17.0 % High 11.0-15.0 [facility] [employer] Comment on above: Performed By: #### C BC #### [facility] [address] [place], [place] [id number] Hematocrit (Bld) [Volume fraction] 37.3 % Normal 35.0-47.0 [facility] Product Delivery Specialist Comment on above: Performed By: #### C BC #### [facility] [address] [place], [place] [id number] Hemoglobin (Bld) [Mass/Vol] 11.6 g/dL Normal 11.6-15.5 [facility] Product Delivery Specialist Comment on above: Performed By: #### C BC #### [facility] [address] [place], [place] [id number] MCH (RBC) [Entitic mass] 28.6 pg Normal 27.0-33.0 [facility] Product Delivery Specialist Comment on above: Performed By: #### C BC #### [facility] [address] [place], [place] [id number] MCHC (RBC) [Mass/Vol] 31.1 g/dL Low 32.0-36.0 [facility] Product Delivery Specialist Comment on above: Performed By: #### C BC #### [facility] [address] [place], [place] [id number] MCV (RBC) [Entitic vol] 92 fL Normal 80-100 [facility] Product Delivery Specialist Comment on above: Performed By: #### C BC #### [facility] [address] [place], [place] [id number] Platelet mean volume (Bld) [Entitic vol] 11.10 fL Normal 7.50-12.50 [facility] Product Delivery Specialist Comment on above: Performed By: #### C BC #### [facility] [address] [place], [place] [id number] Platelets (Bld) [#/Vol] 155 10*3/uL Normal 140-400 [facility] Specialist Comment on above: Performed By: #### C BC #### [facility] [address] [place], [place] [id number] RBC (Bld) [#/Vol] 4.06 10*6/uL Normal 3.90-5.20 [facility] Specialist Comment on above: Performed By: #### C BC #### [facility] [address] [place], [place] [id number] RDW-SD 57.8 fL High 37.0-50.0 [facility] Comment on above: Performed By: #### C BC #### [facility] [address] [place], [place] [id number] WBC (Bld) [#/Vol] 5.6 10*3/uL Normal 3.8-11.0 [facility] Comment on above: Performed By: #### C BC #### [facility] [address] [place], [place] [id number] Vital Signs Date Time Vital Sign Value Performing Clinician Facility 12-12-2023 15:42-0500 Body height 157.5 cm Jeyson Lew MD Work Phone: [facility] 12-12-2023 15:42-0500 Body mass index (BMI) [Ratio] 33.11 kg/m2 Jeyson Lew MD Work Phone: [facility] 12-12-2023 15:42-0500 Body weight 82.1 kg Jeyson Lew MD Work Phone: [facility] 10-08-2023 13:00-0500 Body height 157.48 cm Pb Sanabria Other [employer] Other 10-08-2023 13:00-0500 Body mass index (BMI) [Ratio] 32.55 kg/m2 Pb [facility]abria Other [employer] Other 10-08-2023 13:00-0500 Body weight 80.74 kg Pb Sanabria Other [employer] Other 10-08-2023 13:00-0500 Diastolic blood pressure 67 mm[Hg] Pb Sanabria Other [employer] Other 10-08-2023 13:00-0500 SaO2% (BldA) [Mass fraction] 95 % Pb [facility] Other [employer] Other 10-08-2023 13:00-0500 Systolic blood pressure 124 mm[Hg] Pb Sanabria Other [employer] Other 11-27-2022 15:05-0500 Body height 157.5 cm Doug Sahni MIRROR SPECIALIST-TUB MENDER Work Phone: [employer] 11-27-2022 15:05-0500 Body mass index (BMI) [Ratio] 34.39 kg/m2 Doug Sahni APRN-TUB MENDER Work Phone: [employer] 11-27-2022 15:05-0500 Body temperature 97 [degF] Doug Sahni MIRROR SPECIALIST-TUB MENDER Work Phone: [employer] 11-27-2022 15:05-0500 Body weight 85.28 kg Doug Sahni APRN-TUB MENDER Work Phone: [employer] 08-08-2022 08:48-0400 Body height 157.5 cm Serafin Calles MD Work Phone: [employer] 08-08-2022 08:48-0400 Body mass index (BMI) [Ratio] 34.56 kg/m2 Serafin Calles MD Work Phone: [employer] 08-08-2022 08:48-0400 Body temperature 98.49 [degF] Serafin Calles MD Work Phone: [employer] 08-08-2022 08:48-0400 Body weight 85.7 kg Serafin Calles MD Work Phone: [employer] 08-01-2022 11:19-0400 Body height 157.5 cm Jeyson Lew MD Work Phone: [employer] [facility] 08-01-2022 11:19-0400 Body mass index (BMI) [Ratio] 34.57 kg/m2 Jeyson Lew MD Work Phone: [employer] [facility] 08-01-2022 11:19-0400 Body weight 85.73 kg Jeyson Lew MD Work Phone: [facility] 04-06-2022 09:43-0400 Body height 157.5 cm Jeyson Lew MD Work Phone: [employer] [facility] 04-06-2022 09:43-0400 Body mass index (BMI) [Ratio] 34.57 kg/m2 Jeyson Lwe MD Work Phone: [employer] [facility] 04-06-2022 09:43-0400 Body weight 85.73 kg Jeyson Lew MD Work Phone: [facility] 12-07-2021 14:22-0500 Body height 157.5 cm Doug Sahni MIRROR SPECIALIST-TUB MENDER Work Phone: [employer] [facility] 12-07-2021 14:22-0500 Body mass index (BMI) [Ratio] 34.57 kg/m2 Doug Sahni MIRROR SPECIALIST-TUB MENDER Work Phone: [employer] [facility] 12-07-2021 14:22-0500 Body temperature 98.2 [degF] Doug Sahni MIRROR SPECIALIST-TUB MENDER Work Phone: [employer] [facility] 12-07-2021 14:22-0500 Body weight 85.73 kg Doug Sahni MIRROR SPECIALIST-TUB MENDER Work Phone: [employer] [facility] 11-14-2021 18:30-0500 Diastolic blood pressure 68 mm[Hg] Jeyson Lew MD Work Phone: [employer] [facility] 11-14-2021 18:30-0500 Heart rate 73 /min Jeyson Lew MD Work Phone: [employer] [facility] 11-14-2021 18:30-0500 Respiratory rate 20 /min Jeyson Lew MD Work Phone: [employer] 11-14-2021 18:30-0500 SaO2% (BldA) [Mass fraction] 96 % Jeyson Lew MD Work Phone: [employer] 11-14-2021 18:30-0500 Systolic blood pressure 154 mm[Hg] Jeyson Lew MD Work Phone: [employer] 11-14-2021 12:44-0500 Body temperature 98.2 [degF] Jeyson Lew MD Work Phone: [employer] 11-14-2021 08:23-0500 Body height 157.5 cm Jeyson Lew MD Work Phone: [employer] 11-14-2021 08:23-0500 Body mass index (BMI) [Ratio] 34.39 kg/m2 Jeyson Lew MD Work Phone: [employer] 11-14-2021 08:23-0500 Body weight 85.28 kg Jeyson Lew MD Work Phone: [employer] 10-03-2021 14:00-0400 Body height 157.48 cm Pb [facility]ab[facility] Other [employer] Other 10-03-2021 14:00-0400 Body mass index (BMI) [Ratio] 35.3 kg/m2 Pb [facility] Other [employer] Other 10-03-2021 14:00-0400 Body temperature 97.7 [degF] Pb [facility] Other [employer] Other 10-03-2021 14:00-0400 Body weight 87.54 kg Pb [facility] Other [employer] Other 10-03-2021 14:00-0400 Diastolic blood pressure 71 mm[Hg] Pb [facility]abria Other [employer] Other 10-03-2021 14:00-0400 SaO2% (BldA) [Mass fraction] 98 % Pb Daniele Other [employer] Other 10-03-2021 14:00-0400 Systolic blood pressure 146 mm[Hg] Pb [facility] Other [employer] Other Encounters Encounter Date Encounter Type Care Provider Facility Start: 03-11-2024 End: 03-11-2024 ambulatory TYSHAWN Rodriguez HICKMAN Not Available Start: 01-20-2024 End: 01-20-2024 ambulatory TYSHAWN B HICKMAN Not Available Start: 12-30-2023 End: 12-30-2023 ambulatory TYSHAWN B HICKMAN Not Available Start: 12-19-2023 End: 12-19-2023 ambulatory TYSHAWN B HICKMAN Not Available Start: 12-12-2023 ambulatory [facility] Start: 12-12-2023 ambulatory [facility] Start: 12-12-2023 End: 12-12-2023 Office outpatient visit 15 minutes Jeyson Lew MD Work Phone: [facility] Comment on above: Primary osteoarthrit is of left hip (Primary Dx) Start: 12-12-2023 End: 12-12-2023 Subsequent hospital visit by physician Jeyson Lew MD Work Phone: [facility] Start: 12-11-2023 End: 12-11-2023 ambulatory JOSE CRUZ H TIMMIS Not Available Start: 12-05-2023 End: 12-06-2023 ambulatory Jose Cruz H Timmis Facility:[facility] Start: 12-05-2023 End: 12-05-2023 Patient encounter procedure Jose Cruz H Timmis [facility] Start: 11-04-2023 End: 11-04-2023 ambulatory JOSE CRUZ H TIMMIS Not Available Start: 10-08-2023 Office outpatient vi sit 25 minutes Pb Sanabria [facility] Start: 10-08-2023 End: 10-08-2023 ambulatory NAYNAA Tyshawn Hickman Work Phone: [facility] Work Phone: Start: 10-08-2023 End: 10-08-2023 Patient encounter procedure II Tyshawn Hickman Work Phone: [facility] Work Phone: Start: 02-28-2023 End: 03-01-[address] TYSHAWN HICKMAN Facility:[facility] Start: 01-03-2023 ambulatory JEYSON LEW [facility] Start: 11-27-2022 End: 11-27-2022 Office outpatient visit 15 minutes Doug Sahni APRN-TUB MENDER Work Phone: [facility] Comment on above: Primary osteoarthrit is of one hip, left (Primary Dx) Start: 11-27-2022 End: 11-27-2022 Subsequent hospital visit by physician Doug Sahni APRN-TUB MENDER Work Phone: [facility] Start: 10-03-2022 End: 10-03-[address] ROLA IVORY Facility:[facility] Start: 09-17-2022 End: 09-17-2022 ambulatory ALEXANDRA DOE . Facility:[facility] Start: 08-08-2022 End: 08-08-2022 Office outpatient new 30 minutes Serafin Calles MD Work Phone: [facility] Comment on above: Trigger finger of le ft hand, unspecified finger (Primary Dx) Start: 08-01-2022 End: 08-01-2022 Office outpatient visit 15 minutes Jeyson Lew MD Work Phone: [facility] Comment on above: Hx of total hip arth roplasty, left (Primary Dx); Pain due to left hip joint prosthesis, sequela Start: 08-01-2022 End: 08-01-2022 Subsequent hospital visit by physician Jeyson Lew MD Work Phone: [facility] Start: 06-07-2022 End: 06-08-[address] TYSHAWN HICKMAN Facility:[facility] Start: 05-28-2022 End: 05-29-[address] TYSHAWN HICKMAN Facility:[facility] Start: 05-26-2022 End: 05-26-[address] TYSHAWN HICKMAN Facility:[facility] Start: 05-10-2022 End: 05-10-[address] APRIL LÓPEZ . Facility:[facility] Start: 04-06-2022 End: 04-06-2022 Office outpatient visit 15 minutes Jeyson Lew MD Work Phone: [facility] Comment on above: Hx of total hip arth roplasty, left (Primary Dx) Start: 04-06-2022 End: 04-06-2022 Subsequent hospital visit by physician Jeyson Lew MD Work Phone: [facility] Start: 01-10-2022 End: 01-19-2022 Postop follow up visit related to original px Doug Sahni MIRROR SPECIALIST-TUB MENDER Work Phone: [facility] Comment on above: Hx of total hip arth roplasty, left (Primary Dx) Start: 12-07-2021 End: 12-07-2021 Postop follow up visit related to original px Jeyson Lew MD Work Phone: [facility] Comment on above: Hx of total hip arth roplasty, left (Primary Dx) Start: 12-07-2021 End: 12-07-2021 Subsequent hospital visit by physician Doug Sahni MIRROR SPECIALIST-TUB MENDER Work Phone: [facility] Start: 11-14-2021 End: 11-14-2021 Patient encounter status Jeyson Lew MD Work Phone: [facility] Start: 11-14-2021 End: 11-14-2021 Subsequent hospital visit by physician Jeyson Lew MD Work Phone: [facility] Comment on above: Primary osteoarthrit is of left hip Start: 11-06-2021 End: 11-06-2021 Admission to establishment Santiago Deysi Ont Pat Testing [facility] Pre Admission Comment on above: Preop testing (Prima ry Dx) Start: 11-06-2021 End: 11-06-2021 Patient encounter status Santiago Deysi Ont Pat Testing [facility] Pre [facility]mission Start: 10-03-2021 End: 10-03-2021 ambulatory Pb Sanabria Other [employer] Other Start: 10-03-2021 Office outpatient vi sit 25 minutes Pb Sanabria [facility] Procedures Date Procedure Procedure Detail Performing Clinician Start: 08-08-2022 Injection 1 tendon sheath/ligament aponeurosis Serafin Calles MD Work Phone: Start: 11-14-2021 Blood count hematocrit Doug Sahni MIRROR SPECIALIST-TUB MENDER Work Phone: Start: 11-14-2021 Gluc bld gluc mntr d ev cleared fda spec home use Jeyson Lew MD Work Phone: Start: 11-14-2021 Radiologic examinati on pelvis 1/2 views Doug Sahni MIRROR SPECIALIST-TUB MENDER Work Phone: Start: 11-14-2021 Iadna nos amplified probe tq each organism Doug Sahni MIRROR SPECIALIST-TUB MENDER Work Phone: Start: 11-14-2021 Blood typing serologic abo Jeyson Lew MD Work Phone: Start: 11-14-2021 Prothrombin time Jeyson Lew MD Work Phone: Plan of Treatment Date Care Activity Detail Author Start: 09-17-[address] [facility] Start: 08-03-[address] [facility] Start: 10-09-2023 Pneumococcal vaccination PNEUM OCOCCAL VACCINE SERIES (3 - PPSV23 or PCV20) [facility] Start: 08-02-2023 COVID-19 VACCINE ( season) COVID-19 VACCINE ( season) [facility] Start: 11-14-2022 End: 11-14-2022 Patient encounter procedure 11/14/2022 Office Visit Orthopaedics Doug Sahni, MIRROR SPECIALIST-TUB MENDER [address] [place] [address] [facility] Start: 10-10-2022 End: 10-10-2022 Patient encounter procedure 10/10/2022 Office Visit Orthopaedics Serafin Calels MD [address] [place] [address] [facility] Start: 10-04-2022 Screening for malign ant neoplasm of colon COLORECTAL CANCER SCREENING DISCUSSION [facility] Start: 08-31-2022 Potassium [Moles/vol ume] in Serum or Plasma POTASSIUM [facility] Start: 08-08-2022 End: 08-08-2022 Patient encounter procedure 08/08/2022 Office Visit Orthopaedics Serafin Calles MD [address] [place] [address] [facility] Start: 08-02-2022 Influenza vaccination INFLUENZA VACC INE (#1) [facility] Start: 03-15-2022 End: 03-15-2022 Patient encounter procedure 03/15/2022 Office Visit Orthopaedics Jeyson Lew MD [address] [place] [id number] [facility] Start: 12-28-2021 End: 12-28-2021 Patient encounter procedure [facility] Start: 12-07-2021 End: 12-07-2021 Patient encounter procedure 12/07/2021 Office Visit Orthopaedics Doug Sahni, MIRROR SPECIALIST-TUB MENDER [address] [place] [address] [facility] Start: 11-14-2021 End: 11-14-2021 Admission to same day surgery center 11/14/2021 Surgery Multispecialty Jeyson Lew MD [address] [place] [id number] ARTHROPLASTY HIP TOTAL AL - LEFT [facility] Comment on above: ARTHROPLASTY HIP TOT AL AL - LEFT Start: 11-14-2021 End: 11-14-2021 Arthrp acetblr/prox fem prostc agrft/algrft ARTHROPLASTY HIP TOTAL LATERAL APPROACH Primary osteoarthritis of left hip 11/14/2021 10:00 AM EST [facility] Start: 11-14-2021 Subsequent hospital visit by physician 11/14/2021 Hospital Encounter Multispecialty Jeyson Lew MD [address] [id number] Primary osteoarthritis of left hip [facility] Comment on above: Primary osteoarthrit is of left hip Start: 09-16-2021 COVID-19 VACCINE (3 - Booster for Moderna series) COVID-19 VACCINE (3 - Booster for Moderna series) [facility] Start: 08-17-2021 COVID-19 VACCINE (3 - Booster for Moderna series) COVID-19 VACCINE (3 - Booster for Moderna series) [facility] Start: 08-02-2021 Influenza vaccination INFLUENZA VACC INE (#1) [facility] Start: 05-12-2021 COVID-19 VACCINE (3 - Booster for Moderna series) COVID-19 VACCINE (3 - Booster for Moderna series) [facility] Start: 10-27-2020 Screening for malign ant neoplasm of breast MAMMOGRAM SCREENING DISCUSSION [facility] Start: 10-09-2019 Pneumococcal vaccination PNEUM OCOCCAL VACCINE SERIES (#3) [facility] Start: 2017 Pneumococcal vaccination [facility] Start: 2002 Zoster vaccine hzv l bolivar for subcutaneous use ZOSTER (SHINGLES) VACCINE (1 of 2) [facility] Start: 1997 Colonoscopy COLORECTAL CAN CER SCREENING DISCUSSION [facility] Start: 1997 Screening for malign ant neoplasm of colon COLORECTAL CANCER SCREENING DISCUSSION [facility] Start: 1992 Fasting lipid profile LIPID SCREENIN G [facility] Start: 1992 Lipid panel LIPID SCREENING [facility] Start: 1992 Screening for malign ant neoplasm of breast MAMMOGRAM SCREENING DISCUSSION [facility] Start: 1992 Screening mammography MAMMOGRA M SCREENING DISCUSSION [facility] Start: 1973 Screening for malign ant neoplasm of cervix CERVICAL CANCER SCREENING DISCUSSION [facility] Start: 1971 Third diphtheria, tetanus and acellular pertussis (DTaP) vaccination TDAP (ADULT) [facility] Start: [address] [facility] Start: 1952 Hepatitis C antibody , confirmatory test HEPATITIS C VIRUS SCREENING [facility] Start: 1952 Hepatitis C screening HEPATITI S C VIRUS SCREENING [facility] Start: 1950 Screening for osteoporosis DEXA SCAN DISCUSSION [facility] End: 11-14-2021 Radiography of hip [facility] Work Phone: Comment on above: One Time for 1 Occur rences starting 11/14/2021 until 11/14/2021 Skeletal X-ray of pe lvis and hip XR HIP WITH PELVIS LEFT Imaging Routine Hx of total hip arthroplasty, left 12/07[facility]21 [facility] [facility] Skeletal X-ray of pe lvis and hip XR HIP WITH PELVIS LEFT Imaging Routine Hx of total hip arthroplasty, left 01/16/2022 9:[address] [facility] SURGICAL PATHOLOGY REQUEST SURGICAL PATHOLOGY REQUEST Surg Path Routine Primary osteoarthritis of left hip Release Upon Ordering for 1 Occurrences starting 11/14/2021 [facility] Comment on above: Release Upon Orderin g for 1 Occurrences starting 11/14/2021 XR Pelvis and Hip - left Views XR HIP WITH PELVIS LEFT Imaging Routine Hx of total hip arthroplasty, left 04/06/2022 8:[address] [facility] [facility] Work Phone: XR Pelvis and Hip - left Views XR HIP WITH PELVIS LEFT Imaging Routine Hx of total hip arthroplasty, left 08/01/2022 10:18 AM EDT [employer] XR Pelvis and Hip - left Views XR HIP WITH PELVIS LEFT Imaging Routine Hx of total hip arthroplasty, left 11/27/2022 2:46 PM EST [employer] XR Pelvis and Hip - left Views XR HIP WITH PELVIS LEFT Imaging Routine Primary osteoarthritis of left hip 12/12/2023 3:[address] [facility] Immunizations Immunization Date Immunization Notes Care Provider Cherelle santo 09-06-2021 influenza virus vaccine, unspecified formulation Jeyson Lew MD Work Phone: [facility] 03-17-2021 COVID-19 mRNA-1273 (Moderna) II Tyshawn Hickman Work Phone: [facility] 02-17-2021 COVID-19 mRNA-1273 (Moderna) II Tyshawn Hickman Work Phone: [facility] 08-31-2020 influenza virus vaccine, unspecified formulation [facility] Payers Date Payer Category Payer Medicare [id number] 2021 Self-pay [id number] 2021 Medicare MEDICARE MEDICAR E A AND B [id number] 2021-Present [address] [place] [address] [id number]. [id number] 2021 Medicare [id number] [id number]. [id number] 2019 Unknown GENERIC PAYOR ME DICARE SUPPLEMENT [id number] 2019-Present [phone] [place] [address] [id number] [id number]. [id number] 2019 Unknown GENERIC PAYOR ME DICARE SUPPLEMENT [id number] 2019-Present [phone] [place] [address] 1.2.840.474849.1.13.172.2.7.3. [id number] 1959 Medicare [id number] 2.16.840.1.045111.19 1959 Medicare [id number] 1959 Unknown [id number] 2.16.840.1.477260.19 1959 Unknown [id number] 1952 Unknown [id number] 2.16.840.1.422823.3.579.2.593 1952 Unknown [id number] 2.16.840.1.792662.3.579.2.593 1952 Unknown [id number] 2.16.840.1.789546.3.579.2.593 1952 Unknown [id number] 2.16.840.1.165973.3.579.2.593 1952 Unknown [id number] 2.16.840.1.667122.3.579.2.593 1952 Unknown [id number] 2.16.840.1.999135.3.579.2.593 1952 Unknown [id number] 2.16.840.1.090195.3.579.2.593 1952 Unknown [id number] 2.16.840.1.428325.3.579.2.727 1952 Unknown [id number] 2.16.840.1.416855.3.579.2.983 1952 Unknown [id number] 2.16.840.1.581145.3.579.2.983 1952 Unknown [id number] 2.16.840.1.786068.3.579.2.983 1952 Unknown [id number] 2.16.840.1.673859.3.579.2.983 1952 Unknown [id number] 2.16.840.1.570401.3.579.2.1259 1952 Unknown [id number] 2.16.840.1.207789.3.579.2.1259 1952 Unknown [id number] 2.16.840.1.195914.3.579.2.1259 1952 Unknown [id number] 2.16.840.1.484981.3.579.2.1259 1952 Unknown [id number] 2.16.840.1.005936.3.579.2.1259 1952 Unknown [id number] 2.16.840.1.546439.3.579.2.1259 1952 Unknown [id number] 2.16.840.1.352837.3.579.2.1259 Unknown [employer]/ [id number] Unknown [id number] 2.16.840.1.620659.3.579.2.531 Social History Date Type Detail Facility Start: 08-10-2021 End: 11-27-2022 Tobacco smoking status NHIS Ex-smoker [facility] Start: 08-10-2021 End: 11-27-2022 Tobacco use and exposure Smokeless tobacco non-user [facility] Start: 11-02-2021 End: 12-12-2023 Alcohol intake Lifetime non-drinker (finding) [facility] Start: 08-10-2021 History SDOH Alcohol Frequency 1 [facility] Start: 08-10-2021 End: 11-27-2022 Tobacco Comment Quit 1999 [facility] Start: 1950 Sex Assigned At Not on file A [facility] Exposure to SARS-CoV -2 (event) Not sure [facility] Start: 12-12-2023 Sex Assigned At F [facility] History of tobacco use Current smoker [facility] Start: 1950 Sex Assigned At Female F [facility] Tobacco smoking status No Smokin g Status Entered [facility] Start: 12-12-2023 History of Social function [facility] Medical Equipment Procedure Code Equipment Code Equipment Original Text Equipment Identifier Dates Foster Gripton Acetabular Shell Sector 54mm Od [id number] Start: 11-14-2021 Altrx Polyethyle ne Acetabular Liner Neutral 36mm Id 54 Od [id number] Start: 11-14-2021 Femoral Stem Taper Actis Duofix Hip Prosthesis Cementless Size 6 Std Collar [id number] Start: 11-14-2021 Biolox Delta Cer amic Femoral Head +1.5 36mm Gracie 11/14 Taper [id number] Start: 11-14-2021 Suture [place], Biocompositie Corkscrew Ft, Vented With 1.3mm White/Blue And White/Black Suture Tape [id number] Start: 11-14-2021 Suture [place], Biocompositive Swivelock C, Closed Eyelet With #2 Fiberwire, 4.75 X 19.1mm [id number] Start: 11-14-2021 Suture [place], Biocompositive Swivelock C, Closed Eyelet With #2 [...] 12/12/2023 3:42 PM Patient: Siria Petty MR#: [id number] : 1950 Age: 73 y.o. Referring Physician: [...] Take 1 tablet by mouth daily. nystatin-triamcinolone 177564-0.1 UNIT/GM-% Ointment as needed. omeprazole 20 MG [...] 12/12/2023 3:42 PM Patient: Siria Petty MR#: [id number] : 1950 Age: 73 y.o. Referring Physician: Self, Self Insurance: Payor: MEDICARE [employer] HMO / Plan: MEDICARE [facility] / Product Type: *No Product type* / [...] Take 1 tablet by mouth daily. nystatin-triamcinolone 201180-5.1 UNIT/GM-% Ointment as needed. omeprazole 20 MG [...] No Known Allergies. documented in this encounter [facility] 10-08-2023 Evaluation note Encounter Date Diagnosis [...] - G25.81) Not currently an active problem [employer] Other 12-27-2022 History of Present illness Narrative* Chrystal Geovanny - 11/27/2022 3:20 PM EST Ortho Nurse - Established Patient Intake Room#: 5 Date: 11/27/2022 3:07 PM Patient: Siria Petty MR#: [id number] : 1950 Age: 72 y.o. 1yr L [...] Take 1 tablet by mouth daily. nystatin-triamcinolone 138499-7.1 UNIT/GM-% Ointment as needed. omeprazole 20 MG [...] by mouth daily., Disp: , Rfl: nystatin-triamcinolone 392631-5.1 UNIT/GM-% Ointment, as needed. , Disp: , [...] has No Known Allergies. * Doug Sahni APRN-TUB MENDER - 11/27/2022 3:20 PM EST HPI: Patient [...] 11/27/2022 3:07 PM Patient: Siria Petty MR#: [id number] : 1950 Age: 72 y.o. 1yr L [...] Take 1 tablet by mouth daily. nystatin-triamcinolone 576744-7.1 UNIT/GM-% Ointment as needed. omeprazole 20 MG [...] by mouth daily., Disp: , Rfl: nystatin-triamcinolone 957592-3.1 UNIT/GM-% Ointment, as needed. , Disp: , [...] has No Known Allergies. documented in this [facility]09-07-2022 History of Present illness Narrative* Heather Lane [...] by mouth daily., Disp: , Rfl: nystatin-triamcinolone 261290-7.1 UNIT/GM-% Ointment, as needed. , Disp: , [...] in about 2 months. documented in this [facility]08-31-2022 History of Present illness Narrative* Jaswant Baldwin LPN - 08/01/2022 10:30 AM EDT Ortho Nurse - Established Patient Intake Room#: 3 Left TILA 11-14-21, had a fall on 05-10-22 went to [facility] and was told everything looked good and was given pain medication which she is done with. Before fall she states she was doing great with occasional pain of 2, since her fall the pain radiates down to her foot and is a 10 Date: 08/01/2022 11:26 AM Patient: Siria Petty MR#: [id number] : 1950 Age: 72 y.o. Referring Physician: [...] Take 1 tablet by mouth daily. nystatin-triamcinolone 186460-5.1 UNIT/GM-% Ointment as needed. acetaminophen 325 MG [...] by mouth daily., Disp: , Rfl: nystatin-triamcinolone 588698-3.1 UNIT/GM-% Ointment, as needed. , Disp: , [...] a fall on 05/10/21, went to the [facility] with reported unremarkable work up. She states [...] had a fall on 05-10-22 went to [facility] and was told everything looked good and was given pain medication which she is done with. Before fall she states she was doing great with occasional pain of 2, since her fall the pain radiates down to her foot and is a 10 Date: 08/01/2022 11:26 AM Patient: Siria Petty MR#: [id number] : 1950 Age: 72 y.o. Referring Physician: [...] Take 1 tablet by mouth daily. nystatin-triamcinolone 780429-0.1 UNIT/GM-% Ointment as needed. acetaminophen 325 MG [...] by mouth daily., Disp: , Rfl: nystatin-triamcinolone 649909-9.1 UNIT/GM-% Ointment, as needed. , Disp: , [...] has No Known Allergies. [facility] of Present illness Narrative* Jaswant Baldwin LPN - 04/06/2022 9:10 AM EDT Ortho Nurse - Established Patient Intake Room#: 1 4+ month left TILA A/L, some pain of 2, doing great Date: 04/06/2022 9:49 AM Patient: Siria Petty MR#: [id number] : 1950 Age: 71 y.o. Referring Physician: [...] Take 1 tablet by mouth daily. nystatin-triamcinolone 047925-2.1 UNIT/GM-% Ointment as needed. acetaminophen 325 MG [...] by mouth daily., Disp: , Rfl: nystatin-triamcinolone 480282-8.1 UNIT/GM-% Ointment, as needed. , Disp: , [...] 04/06/2022 9:49 AM Patient: Siria Petty MR#: [id number] : 1950 Age: 71 y.o. Referring Physician: [...] Take 1 tablet by mouth daily. nystatin-triamcinolone 629552-0.1 UNIT/GM-% Ointment as needed. acetaminophen 325 MG [...] by mouth daily., Disp: , Rfl: nystatin-triamcinolone 998655-4.1 UNIT/GM-% Ointment, as needed. , Disp: , [...] has No Known Allergies. documented in this [facility]02-09-2022 History of Present illness Narrative* Doug Sahni APRN-TUB MENDER - 01/10/2022 2:20 PM EST SUBJECTIVE: Siria [...] scheduled 4-month appointment or sooner as necessary. (DOC:[id number]) I have reviewed the findings of the clinical technician support association and agree with their assessment. EDY Parra No notes on file documented in this [facility]01-06-2022 History of Present illness Narrative* EDY Parra [...] visit. All pertinant portions of the clinical technician support association documentation was reviewed. EDY Parra I have reviewed the findings of the clinical technician support association and agree with their assessment. EDY Parra Ortho Nurse Established Patient Intake Room#: 4 Date: 12/07/2021 2:25 PM Patient: Siria Petty MR#: [id number] : 1950 Age: 71 y.o. 3wk S/P [...] Take 1 tablet by mouth daily. nystatin-triamcinolone 478868-4.1 UNIT/GM-% Ointment as needed. omeprazole 20 MG [...] by mouth daily., Disp: , Rfl: nystatin-triamcinolone 722211-1.1 UNIT/GM-% Ointment, as needed. , Disp: , [...] 12/07/2021 2:25 PM Patient: Siria Petty MR#: [id number] : 1950 Age: 71 y.o. 3wk S/P [...] Take 1 tablet by mouth daily. nystatin-triamcinolone 772398-7.1 UNIT/GM-% Ointment as needed. omeprazole 20 MG [...] by mouth daily., Disp: , Rfl: nystatin-triamcinolone 471445-0.1 UNIT/GM-% Ointment, as needed. , Disp: , [...] has No Known Allergies. documented in this [facility]12-14-2021 Nurse Note* Yadira Salas RN - 11/14/2021 [...] - 11/14/2021 4:30 PM EST Doug Sahni TUB MENDER notified of Hgb Hct results,no further orders. * Yadira Salas RN - 11/14/2021 3:30 PM EST Took 50% of regular tray w/o nausea. * Nicole Laurent RN - 11/14/2021 12:47 PM EST Patient transferred to PACU via bed with this nurse and LINE DRIVER. Bedside report given to ARTEMIO Quinones. * Nicole Laurent RN - 11/14/2021 11:36 AM EST OR room temp: 66.3 OR room humidity: 50 documented in this [facility]12-14-2021 History of Present illness Narrative* Trisha Shook [...] Transfer Skill: Sit To Stand, Rehab Eval [place] (Sit-Stand Transfers) contact guard Physical Assist/Nonphysical Assist: Sit/Stand 1 person assist Weight-Bearing Restrictions: Sit/Stand toe touch weight-bearing Assistive Device For Transfer: Sit/Stand 2 wheeled walker Gait Skills, PT Eval Level of [place]: Gait contact guard Physical Assist/Nonphysical Assist: Gait 1 person assist Weight-Bearing Restrictions: Gait toe touch weight-bearing Assistive Device For Transfer: Gait 2 wheeled walker Gait Distance 50 feet Gait Analysis, PT Eval Gait Pattern Used swing-to gait Stair Negotiation [place] Level: Stair Negotiation contact guard assist Physical [...] Supine to Sit, Rehab Eval Level of [place]: Supine/Sit stand-by assist Physical Assist/Nonphysical Assist: Supine/Sit 1 person assist;verbal cues Transfer Skill: Sit to Stand, Rehab Eval Level of [place]: Sit/Stand contact guard Physical Assist/Nonphysical Assist: Sit/Stand 1 person assist Weight-Bearing Restrictions: Sit/Stand touch down weight-bearing Assistive Device for Transfer: Sit/Stand wheeled walker Upper Body Dressing Level of [place] independent Physical Assist/Nonphysical Assist set-up required Lower Body Dressing Level of [place] moderate assist (50% patients effort) Physical Assist/Nonphysical Assist 1 person assist (including TONIA hose) Assistive Device 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 Yes, combination of simultaneous billable and non-billable treatment Patient Instruction Pt instructed on LB dressing techniques utilizing landfill gas plant field technician to rodo underwear andshorts in sitting and [...] (OT Eval) bathing equipment;dressing equipment;raised toilet seat;tub bench;landfill gas plant field technician Today's Treatment Included Pt demonstrates moderate to [...] hygiene training Therapist Information License # [id number] 1. Pt will complete LB dressing min [...] 0.86 Docusate 100mg 4.00 APAP 325mg 4.00 [place] 5-325mg 1.80 Tramadol 50mg 1.35 Omeprazole 20mg 2.90 Ondansetron 4mg 4.00 Total $ 20.91 Patient Education Counseled patient on appropriate use and side effects of medications. Medications to be picked up in pharmacy Thaddeus Wallis PharmD [facility] [phone] * OSMEL Frazier - 11/14/2021 3:31 PM EST COVERING MACHINE TENDER met with patient and spouse. OSMEL explained that it was recommended for the patient to dischargehome with home health services for CBC lab draw on 11/16 as well as 1 week of therapy for safety precaution awareness. COVERING MACHINE TENDER was able to arrange services through [facility]. COVERING MACHINE TENDER explained they would contact her to arrange [...] Supine to Sit, Rehab Eval Level of [place]: Supine/Sit minimum assist (75% patients effort) Physical Assist/Nonphysical Assist: Supine/Sit 1 person assist Transfer Skill: Sit To Stand, Rehab Eval [place] (Sit-Stand Transfers) contact guard Physical Assist/Nonphysical Assist: Sit/Stand 1 person assist Weight-Bearing Restrictions: Sit/Stand toe touch weight-bearing Assistive Device For Transfer: Sit/Stand 2 wheeled walker Gait Skills, PT Eval Level of [place]: Gait contact guard Physical Assist/Nonphysical Assist: Gait [...] weight bearing status and use of leg project buyer. Pt performed ankle pumps and quad sets [...] given as rescue opiate. documented in this [facility]12-14-2021 Hospital Discharge instructions* Instructions* Raina Maurice RN [...] pillow between legs Hip Precautions: Contact Office ([phone]) if: > Any falls or injuries > [...] [place] office is closed, you may call [phone] where you will be connected with an after hours orthopedic nurse that will be able to answer your questions. documented in this encounterSt[facility] Hospital[facility] [id number] Miscellaneous Notes* Nursing Notes - Joni Ly RN - 11/14/2021 1:14 PM EST Discharged from PACU in stable condition at this time. Transported via cart to [facility]. Cart placed in lowest position. Call light within reach. Pulse ox monitor on pt with alarms set. Report radha Salas Rn. [facility]ail[facility] [id number] Instructions* Patient Instructions* Rocio Peña RN - 11/06/2021 7:[address] Lew's office will call you for your arrival time, 1-2 business days before your scheduled surgery. Please review your surgery checklist and bring your guide or booklet the day of surgery. Pre-Admission Testing Dept. [phone] Call if you have any changes in [...] Yellow - take the day of surgery [place] - hold according to the doctor's instructions [...] YOUR SURGERY Last Dose: Date Time nystatin-triamcinolone 477169-9.1 UNIT/GM-% Ointment NEEDED CONTINUE, but DO NOT take the morning of surgery. Last Dose: Date Time documented in this [facility]11-02-2021 Evaluation note* Encounter Date Diagnosis Assessment Notes [...] fatigue, but may also predispose to RLS [employer] Other Evaluation + Plan note No data available for this section [facility] Diagnosis Preop testing- Primary Preoperative examination, unspecified Primary osteoarthritis of left hip Primary localized osteoarthrosis, pelvic region and thigh [facility] Diagnosis Preop testing- Primary Preoperative examination, unspecified Abnormal coagulation profile Abnormal coagulation profile Encounter for preoperative screening laboratory testing for COVID-19 virus Primary osteoarthritis of left hip Primary localized osteoarthrosis, pelvic region and thigh Acute postoperative pain of left knee [facility] this [facility]* Diagnosis Hx of total hip arthroplasty, left- Primary Hx of total hip arthroplasty, left- Primary [facility]* Diagnosis Hx of total hip arthroplasty, left- Primary [facility] this [facility]* Diagnosis Hx of total hip arthroplasty, left- Primary [facility]* Diagnosis Hx of total hip arthroplasty, left- Primary Pain due to left hip joint prosthesis, sequela [facility] this [facility]* Diagnosis Trigger finger of left hand, unspecified finger- Primary [facility] this [facility]* Diagnosis Primary osteoarthritis of one hip, left- Primary documented in this encounter [facility] SystemEvaluation noteNo assessment information availableFisher-[facility]itus [facility] Work Phone: Evaluation note* Diagnosis Primary osteoarthritis of left hip- Primary Primary localized osteoarthrosis, pelvic region and thigh documented [facility] this encounter [facility] SystemHistory general Narrative - Reported* Type Description Date Medical History COPD Medical History ADRIANNA Medical History diastolic CHF with preserved EF Medical History Type II diabetes diet controlled [employer] Other History of Present illness Narrative* Rashmi [...] HEARING AIDS OR ANY TROUBLE HEARING Sl blackfeet DIFFICULTY SWALLOWING no DENTAL APPLIANCES OR PROBLEMS (dentures, partials, loose teeth, missing teeth, broken teeth, caps or crowns) Dentures full BETA DONNIE USE yes STEROIDS IN THE PAST 2 YEARS no HISTORY OF BLOOD TRANSFUSION/REACTION no CULTURAL OR TENRIISM BELIEFS THAT WILL AFFECT CARE no DIETARY [...] verbalized understanding of instructions. [facility] No data available for this section [facility] No data available for this section [facility] HospitalReason for referral (narrative)* Consultation (Routine) - New Request Specialty Diagnoses / Procedures Referred By Arlet hall Referred To Contact Orthopaedics Diagnoses Hx of total hip arthroplasty, left Jeyson Lew MD [address] [place] [address] [phone] Serafin Calles MD [address] [place] [address] [phone] Referral ID Status Reason Start Date Expiration Date V isits Requested Visits Authorized [id number] New Request 08/01/2022 08/26/2023 1 1 * Medication Prior Authorization - Closed Specialty Diagnoses / Procedures Referred By Arlet hall Referred To Contact Jeyson Lew MD [address] [place] [address] 65041 Referral ID Status Reason Start Date Expiration Date Visits Re quested Visits Authorized [id number] Closed 1 1 * Adjunctive Therapy (Routine) - New Request Specialty Diagnoses / Procedures Referred By Arlet hall Referred To Contact Physical Therapy Diagnoses Hx of total hip arthroplasty, left Pain due to left hip joint prosthesis, sequela Jeyson Lew MD [address] [place] [address] 83736 Referral ID Status Reason Start Date Expiration Date V isits Requested Visits Authorized [id number] New Request 08/01/2022 08/26/2023 1 1 Scheduling Instructions . * Diagnostic X-Ray (Routine) - New Request Specialty Diagnoses / Procedures Referred By Contac t Referred To Contact Diagnoses Hx of total hip arthroplasty, left Procedures XR HIP WITH PELVIS LEFT Jeyson Lew MD [address] [place] [address] 75706 Referral ID Status Reason Start Date Expiration Date V isits Requested Visits Authorized [id number] New Request 07/20/2022 08/14/2023 1 1 [facility] for referral (narrative)* Consultation (Routine) - New Request Specialty Diagnoses / Procedures Referred By Contact Referred To Contact Physical Medicine & Rehabilitation Diagnoses Primary osteoarthritis of left hip Jeyson Lew MD [address] [place] [address] 53459 Pb Rosas DO [address] [place] [address] 46585 Referral ID Status Reason Start Date Expiration Date V isits Requested Visits Authorized [id number] New Request 12/12/2023 01/05/2025 1 1 * Diagnostic X-Ray (Routine) - New Request Specialty Diagnoses / Procedures Referred By Contac t Referred To Contact Diagnoses Primary osteoarthritis of left hip Procedures XR HIP WITH PELVIS LEFT Jeyson Lwe MD [address] [place] [address]9220 Referral ID Status Reason Start Date Expiration Date V isits Requested Visits Authorized [id number] New Request 12/12/2023 01/05/2025 1 1 [facility] for visit Narrative* Auth/Cert Specialty Diagnoses / Procedures Referred By Contac t Referred To Contact Diagnoses Primary osteoarthritis of left hip Primary osteoarthritis of left hip [M16.12] Procedures AR TOTAL HIP ARTHROPLASTY ARTHROPLASTY HIP TOTAL LATERAL APPROACH Jeyson Lew MD [address] [place] [address]18 Referral ID Status Reason Start Date Expiration Date Visits Re quested Visits Authorized [id number] 10/18/2021 1 1 [facility] Advance Directives No Advanced Directives Records [...] XR HIP WITH PELVIS LEFT Doug Sahni APRN-TUB MENDER [address] [place] [address] Referral ID Status Reason Start Date Expiration Date V isits Requested Visits Authorized [id number] New Request 11/30/2021 12/25/2022 1 1 Referral ID Status Reason Start Date Expiration Date V isits Requested Visits Authorized [id number] New Request 01/16/2022 02/10/2023 1 1 Specialty Diagnoses / Procedures Referred By Contac t Referred To Contact Diagnoses Hx of total hip arthroplasty, left Procedures XR HIP WITH PELVIS LEFT Jeyson Lew MD [address] [place] [address] Referral ID Status Reason Start Date Expiration Date V isits Requested Visits Authorized [id number] New Request 03/30/2022 04/24/2023 1 1 Summary [...] XR HIP WITH PELVIS LEFT Doug Sahni APRN-TUB MENDER [address] [place] [address] 68162 Referral ID Status Reason Start Date Expiration Date V isits Requested Visits Authorized [id number] New Request 11/30/2021 12/25/2022 1 1 Reason Comments Post Op Visit Specialty Diagnoses / Procedures Referred By Contac t Referred To Contact Diagnoses Hx of total hip arthroplasty, left Procedures XR HIP WITH PELVIS LEFT Jeyson Lew MD [address] [place] [address] 11313 Referral ID Status Reason Start Date Expiration Date V isits Requested Visits Authorized [id number] New Request 03/30/2022 04/24/2023 1 1 Referral ID Status Reason Start Date Expiration Date V isits Requested Visits Authorized [id number] New Request 07/20/2022 08/14/2023 1 1 Reason Comments Pain Reason Comments Consult Middle finger trigge ring Specialty Diagnoses / Procedures Referred By Contac t Referred To Contact Orthopaedics Diagnoses Hx of total hip arthroplasty, left Jeyson Lew MD [address] [place] [address]9986 Serafin Calles MD [address] [place] [address] [phone] Referral ID Status Reason Start Date Expiration Date V isits Requested Visits Authorized [id number] New Request 08/01/2022 08/26/2023 1 1 Referral ID Status Reason Start Date Expiration Date V isits Requested Visits Authorized [id number] New Request 11/21/2022 12/16/2023 1 1 Reason Comments Follow-up Specialty Diagnoses / Procedures Referred By Contac t Referred To Contact Diagnoses Primary osteoarthritis of left hip Procedures XR HIP WITH PELVIS LEFT Jeyson Lew MD [address] [place] [address] 94642 Referral ID Status Reason Start Date Expiration Date V isits Requested Visits Authorized [id number] New Request 12/12/2023 01/05/2025 1 1 Reason Comments Pain Care Teams (unrecognized sec tion and content) Logistic Manager Relationship Specialty Start Date End Date Tyshawn Hickman II, MD [address] [place] [address] PCP - General Internal Medicine 08/10/21 Logistic Manager Relationship Specialty Start Date End Date Tyshawn Hickman II, MD [address] [place] [address] PCP - General Internal Medicine 08/10/21 Logistic Manager Relationship Specialty Start Date End Date Tyshawn Hickman II, MD [address] [place] [address] PCP - General Internal Medicine 08/10/21 Logistic Manager Relationship Specialty Start Date End Date Tyshawn Hickman II, MD [address] [place] [address] PCP - General Internal Medicine 08/10/21 Logistic Manager Relationship Specialty Start Date End Date Tyshawn Hickman II, MD [address] [place] [address] PCP - General Internal Medicine 08/10/21 Logistic Manager Relationship Specialty Start Date End Date Tyshawn Hickman II, MD [address] [place] [address] PCP - General Internal Medicine 08/10/21 Logistic Manager Relationship Specialty Start Date End Date Tyshawn Hickman II, MD [address] [place] [address] PCP - General Internal Medicine 08/10/21 Logistic Manager Relationship Specialty Start Date End Date Tyshawn Hickman II, MD [address] [place] [address] PCP - General Internal Medicine 08/10/21 Logistic Manager Relationship Specialty Start Date End Date Tyshawn Hickman II, MD [address] [place] [address] PCP - General Internal Medicine 08/10/21 Logistic Manager Relationship Specialty Start Date End Date Tyshawn Hickman II, MD [address] [place] [address] PCP - General Internal Medicine 08/10/21 Logistic Manager Relationship Specialty Start Date End Date Tyshawn Hickman II, MD [address] [place], [place] [phone] PCP - General Internal Medicine 08/10/21 Team Status: Active Member Role Status Dates Tyshawn Hickman II MD Primary Care Provider Active Team Status: Inactive Member Role Status Dates Tyshawn Hickman II MD Primary Care Provider Active Pb Sanabria MD Attending Provider Active Logistic Manager Relationship Specialty Start Date End Date Tyshawn Hickman II, MD [address] [place] [address] PCP - General Internal Medicine 08/10/21 Logistic Manager Relationship Specialty Start Date End Date Tyshawn Hickman II, MD [address] [place] [address] PCP - General Internal Medicine 08/10/21 Scheduled [...] 2 g, Intravenous, Administer over 30 Minutes, WET MIXER TO PROCEDURE, 1 dose, Starting on Sat11/14/21 at 0754, Until Discontinued, Other, Pre-operative antibiotic, For 15 Minutes, Pre-op/Pre-Proc 1051 (Given - Provid er: Jessica Rosa, MIRROR SPECIALIST-LINE DRIVER - Comment: PSR s/p negative test dose) [...] section and content) DATE CREATED AUTHOR 10/17/2022 [facility] dical Specialist DATE CREATED AUTHOR AUTHOR'S ORGANIZ ATION 03/08/2023 [facility] DATE CREATED AUTHOR AUTHOR'S ORGANIZ ATION 10/12/2023 [facility] DATE CREATED AUTHOR AUTHOR'S ORGANIZ ATION 12/06/2023 [facility] DATE CREATED AUTHOR AUTHOR'S ORGANIZ ATION 12/20/2023 [facility] DATE CREATED AUTHOR AUTHOR'S ORGANIZ ATION 03/12/2024 [facility] dical Specialists EPIC Goals (unrecognized section and [...] BE BASED ON THE PRIMARY CLINICAL RECORDS. [facility]. provides no warranty or guarantee of the accuracy or completeness of information in this document.
--- NOTE | 2024-07-03 08:22 | MR_ITS ---
[place] [id number] Patient Name: TONIA BOYER MRN: [id number] date: 1950 Sex: F Assigned Patient Location: MRI Current Patient Location: MRI Accession/Order Number: [id number] Exam Date: 07/03/2024 09:00 Report Date: 07/04/2024 05:08 At the request of: CHRISTIANO HERNANDEZ Procedure: MR lumbar spine wo con EXAMINATION: MR lumbar spine wo con HISTORY: Low Back Pain ; chronic lumbar pain radiating into left leg COMPARISON: XR lumbar spine with bending views 07/03/2024, CT abdomen pelvis 12/01/2023 TECHNIQUE: A variety of imaging planes and parameters were utilized for visualization of suspected pathology. FINDINGS: For the purposes of numbering, sagittal T2 image # 8 extends from the T11 vertebral body superiorly to the S3 level inferiorly. PARASPINAL AREA: Collateral vessels within left upper quadrant of abdomen. Benign-appearing right renal cyst. BONES: 5 mm anterior listhesis of L4 on 5. 6 mm anterior listhesis of L5 on S1. No fracture or bone lesion. CORD/CAUDA EQUINA: Normal caliber, contour, and signal intensity. DISC LEVELS: 12-L1: No significant disc/facet abnormality, spinal stenosis, or foraminal stenosis. L1-L2: No significant disc/facet abnormality, spinal stenosis, or foraminal stenosis. L2-L3: Early degenerative disc disease is present without focal protrusion or neural impingement. L3-L4: Moderate central canal and mild-moderate foramen narrowing bilaterally. Grade 1 anterior listhesis of L3 on 4 with mild posterior pseudo-disc bulging and mild disc height reduction. Moderate to marked degenerative facet arthropathy and ligamentum flavum thickening bilaterally. L4-L5: Mild central canal and bilateral foramen narrowing. Grade 1 anterolisthesis of L4 on 5 with mild posterior pseudodisc bulging and mild disc height reduction. Marked degenerative facet arthropathy. L5-S1: No significant central canal narrowing. Mild right, moderate left foramen narrowing. Mild diffuse disc bulging slightly eccentric to the left and moderate disc height reduction. Mild to moderate degenerative facet arthropathy. MR/MR lumbar spine wo con IMPRESSION: 1. Moderate degenerative changes of lumbar spine as detailed above. Not appreciably changed compared to prior CT study. Electronically authenticated by: NITIN DREW Date: 07/04/2024 05:08
--- NOTE | 2024-07-03 08:22 | XR_ITS ---
The [address] [address] Patient Name: TONIA BOYER MRN: [id number] date: 1950 Sex: F Assigned Patient Location: MRI Current Patient Location: Accession/Order Number: [id number] Exam Date: 07/03/2024 08:30 Report Date: 07/04/2024 04:21 At the request of: CHRISTIANO HERNANDEZ Procedure: XR lumbar spine 6V w bending EXAMINATION: XR lumbar spine 6V w bending HISTORY: Low Back Pain ; chronic low back pain radiating into left leg COMPARISON: CT abdomen pelvis 05/10/2022 FINDINGS: BONES: Grade 1 anterior listhesis of L3 on 4 and of L4 on 5; no change in alignment during flexion and extension. Marked degenerative facet arthropathy L3-L4 through L5-S1 with marked bone encroachment on the neural foramen at L5-S1. DISC SPACES: L3-L4 mild narrowing. L4-L5 moderate narrowing. L5-S1 marked narrowing with prominent posterior disc osteophyte complex narrowing the neural foramen. PARASPINOUS: Negative. No paraspinous abnormality is seen. OTHER: Negative. XR/XR lumbar spine 6V w bending IMPRESSION: 1. Marked degenerative changes of lumbar spine, not appreciably changed compared to 05/10/2022 CT abdomen and pelvis. Electronically authenticated by: NITIN DREW Date: 07/04/2024 04:21
== END 2024-07-03 08:17 | disposition home or self-care (01) ==
LOC: MRI 08:16
PROVIDERS: PCP Internal Medicine; Visit Provider Nurse Practitioner
DX: M48.062 Spinal stenosis, lumbar region with neurogenic claudication (principal); M54.50 Low back pain, unspecified; M51.36 Other intervertebral disc degeneration, lumbar region
CPT/HCPCS: 72114; 72148

== ENCOUNTER 2024-07-15 14:25 | Outpatient (OUT) | payer MEDICARE, SELFPAY ==
--- NOTE | 2024-07-15 15:06 | P.CN_ITS ---
Consult Note: HPI Data of Consult Patient: known to practice within the last 3 years Requesting Physician: Stormy Reyes NP Primary Care Provider: BRIANDA MILLER Consult Narrative Reason for consult: f/u Narrative: Siria Petty a pleasant 74 year old female presents for evaluation and management of chronic low back pain with pain radiating into left hip and left leg. Pain 4/10 increasing to 10/10 with standing walking and sleep, improved with rest. Failed tylenol, cannot take NSAIDs as she has had gastric bypass surgery. Has engaged in provider guided HEP greater than 6 weeks with worsening of her pain. denies loss of bowel/bladder. hx of lumbar bulging discs that responded well to ESIs in the past, unknown when last injection was. Has completed lumbar xray and MRI with results below. cc:: CC: Stormy Reyes NP Review of Systems ROS Status of ROS 10 or more systems reviewed and unremark able except as noted in history and below Musculoskeletal Reports: back pain, extremity pain and joint pain PFSH PFSH Medical History (Updated 06/25/24 @ 14:17 by Stormy Reyes NP) Iron deficiency anemia ?D50.9 - Iron deficiency anemia, unspecified (ICD-10) Type 2 diabetes mellitus with hyperglycemia ?E11.65 - Type 2 diabetes mellitus with hyperglycemia (ICD-10) Left sided sciatica ?M54.32 - Sciatica, left side (ICD-10) CAD (coronary artery disease) ?I25.10 - Atherosclerotic heart disease of [place] coronary artery without angina pectoris (ICD-10) Chronic heart failure with preserved ejection fraction (HFpEF) ?I50.32 - Chronic diastolic (congestive) heart failure (ICD-10) HTN (hypertension) ?I10 - Essential (primary) hypertension (ICD-10) COPD (chronic obstructive pulmonary disease) ?J44.9 - Chronic obstructive pulmonary disease, unspecified (ICD-10) Acute pelvic pain ?R10.2 - Pelvic and perineal pain (ICD-10) Diabetic acidosis, type I ?E10.10 - Type 1 diabetes mellitus with ketoacidosis without coma (ICD-10) Asthma ?J45.909 - Unspecified asthma, uncomplicated (ICD-10) Surgical History H/O lithotripsy ?Z98.890 - Other specified postprocedural states (ICD-10) Gastric bypass status for obesity ?Z98.84 - Bariatric surgery status (ICD-10) History of total left hip arthroplasty ?Z96.642 - Presence of left artificial hip joint (ICD-10) Family History Sister Family history of cancer Family history of diabetes mellitus Mother Family history of diabetes mellitus Family history of hypertension Social History Smoking status: Former smoker Second hand tobacco smoke exposure: No Non-prescribed substance use: denies use Previous occupational history: retired Known occupational exposures/hazards: No Highest level of school completed/degree received: high school graduate Do you want help with school or training: No Are you now , , , , never or living with a partner: In a typical week, how many times do you talk on the telephone with family, friends, or neighbors: 3 or more times per week How often do you get together with friends or relatives: 3 or more times per week How often do you attend orthodox or episcopal services: 4 or more times per year Do you belong to any clubs or organizations such as orthodox groups unions, [employer] or athletic groups, or school groups: no Total score: 3 Score interpretation: A score of greater than or equal to 2 indicates the lowest level of social isolation. Little interest or pleasure in doing things: not at all Feeling down, depressed, or hopeless: not at all Feel stressed/tense/nervous/anxious/difficulty sleeping: not at all Due to disability, difficulty making decisions: No Do you think of yourself as: straight/heterosexual Gender Identity: female Meds Home Medications and Allergies Home Medications ?Medication ?Instructions ?Recorded ?Confirmed ?Type alendronate 70 mg tablet 70 mg PO QWEEK 12/01/23 12/01/23 History amoxicillin 875 mg-potassium 1 tab PO BID 12/01/23 12/01/23 History clavulanate 125 mg tablet aspirin 81 mg tablet,delayed 81 mg PO DAILY 12/01/23 12/01/23 History release (Adult Low Dose Aspirin) atorvastatin 40 mg tablet 40 mg PO DAILY 12/01/23 12/01/23 History cetirizine 10 mg tablet 10 mg PO DAILY PRN allergy symptoms 12/01/23 12/01/23 History cholecalciferol (vitamin D3) 125 125 mcg PO DAILY 12/01/23 12/01/23 History mcg (5,000 unit) tablet (Vitamin D3) cyanocobalamin (vitamin B-12) 500 500 mcg PO BID 12/01/23 12/01/23 History mcg tablet (Vitamin B-12) famotidine 20 mg tablet 20 mg PO BID 12/01/23 12/01/23 History fluticasone propionate 50 2 spray intranasal DAILY 12/01/23 12/01/23 History mcg/actuation nasal spray,suspension furosemide 20 mg tablet 20 mg PO DAILY 12/01/23 12/01/23 History ipratropium 0.5 mg-albuterol 3 mg 3 ml inhalation BID 12/01/23 12/01/23 History (2.5 mg base)/3 mL nebulization soln metformin 500 mg tablet 500 mg PO TID 12/01/23 12/01/23 History metoprolol succinate 25 mg 25 mg PO DAILY 12/01/23 12/01/23 History tablet,extended release 24 hr multivitamin (Daily Multi-Vitamin 1 tab PO DAILY 12/01/23 12/01/23 History tablet) levofloxacin 750 mg tablet 750 mg PO DAILY 7 days #7 tabs 12/02/23 Rx Allergies Allergy/AdvReac Type Severity Reaction Status Date / Time No Known Drug Allergies Allergy Verified 12/01/23 15:11 Exam Constitutional Documenting provider has reviewed patient's vital signs: yes Common normals: no apparent distress, oriented x3, healthy appearing, alert and well nourished General appearance: cooperative [facility] Common normals: normocephalic, hearing grossly normal bilaterally and moist oral mucous membranes Head and scalp: normocephalic Eye Common normals: PERRL Pupil: PERRL Neck & C-Spine Common normals: full ROM General: normal visual inspection Chest Common normals: inspection of chest normal Respiratory Common normals: normal respiratory effort, no retractions and no use of accessory muscles Back & Pelvis Lumbar spine/lower back: ROM limited and pain with ROM Sacroiliac joints: SI joint(s) abnormal Other: left SIJ positive sakshi(patricks), gaenslens, thigh thrust, compression test decreased sensation to left L4,5,S1 pattern strength 4/5 in LLE 5/5 in RLE Extremity Common normals: normal to inspection and full ROM Neuro Common normals: oriented x3, CN's II-XII intact bilaterally, moves all extremities, no focal motor deficits, no sensory deficits noted and deep tendon reflexes 2+ bilaterally Sensorium/orientation: alert Gait (neuro): antalgic Motor exam: strength 5/5 throughout and no movement abnormalities noted Psych Common normals: mental status grossly normal, thought process normal, cooperative, affect normal, speech normal and activity/motor behavior normal Speech: normal speech Thought process: normal thought process Results Imaging Lumbar MRI: Attestation: I have reviewed the pertinent imaging results. Radiologist's impression: DISC LEVELS: 12-L1: No significant disc/facet abnormality, spinal stenosis, or foraminal stenosis. L1-L2: No significant disc/facet abnormality, spinal stenosis, or foraminal stenosis. L2-L3: Early degenerative disc disease is present without focal protrusion or neural impingement. L3-L4: Moderate central canal and mild-moderate foramen narrowing bilaterally. Grade 1 anterior listhesis of L3 on 4 with mild posterior pseudo-disc bulging and mild disc height reduction. Moderate to marked degenerative facet arthropathy and ligamentum flavum thickening bilaterally. L4-L5: Mild central canal and bilateral foramen narrowing. Grade 1 anterolisthesis of L4 on 5 with mild posterior pseudodisc bulging and mild disc height reduction. Marked degenerative facet arthropathy. L5-S1: No significant central canal narrowing. Mild right, moderate left foramen narrowing. Mild diffuse disc bulging slightly eccentric to the left and moderate disc height reduction. Mild to moderate degenerative facet arthropathy. Lumbar Xray: Attestation: I have reviewed the pertinent imaging results. Radiologist's impression: BONES: Grade 1 anterior listhesis of L3 on 4 and of L4 on 5; no change in alignment during flexion and extension. Marked degenerative facet arthropathy L3-L4 through L5-S1 with marked bone encroachment on the neural foramen at L5-S1. DISC SPACES: L3-L4 mild narrowing. L4-L5 moderate narrowing. L5-S1 marked narrowing with prominent posterior disc osteophyte complex narrowing the neural foramen. PARASPINOUS: Negative. No paraspinous abnormality is seen. OTHER: Negative. Additional Findings Additional findings: If on a controlled substance or opioids, I have checked an [place] report on this patient and there are no aberrancies noted in the prescribing history.??If on a controlled substance or opioid a drug screen was completed and reviewed within the last year, and if there has not been a drug screen completed we ordered one today to monitor higher risk, state monitored pain medication use. As part of providing excellent, safe, comprehensive care, the following was completed at our patient's visit: 1. A medication reconciliation and review to ensure accurate knowledge of current/active medications, including asking our patients to inform us about any [id number] medications or herbal remedies/nutritional supplements/alternative remedies. 2. A review to specifically ensure our patients have had annual screening for screening for depression, screening for tobacco use, and screening for unhealthy alcohol use. For concerning screenings had a discussion with the patient, provided patient education, and recommended follow-up with primary care provider when appropriate. If patient noted with a risk of falling, they received education on strength, gait, and balance training to prevent future risk of falling. Assessment and Plan Assessment and Plan (1) Lumbar stenosis with neurogenic claudication: (2) Sacroiliitis: (3) Lumbar radiculopathy: Plan left L4-5 l5-S1 TFESI under fluoroscopy for lumbar stenosis with NC, risks vs benefits reviewed left SIJ injection under fluoroscopy for sacroiliitis, risks vs benefits reviewed continue HEP as tolerated continue tylenol/ASA PRN f/u 2 weeks after injections complete
== END 2024-07-15 14:26 | disposition home or self-care (01) ==
LOC: PM 14:26
PROVIDERS: PCP Internal Medicine; Visit Provider Nurse Practitioner
DX: M48.062 Spinal stenosis, lumbar region with neurogenic claudication (principal); M46.1 Sacroiliitis, not elsewhere classified; M54.16 Radiculopathy, lumbar region
CPT/HCPCS: G0463

== ENCOUNTER 2024-07-27 06:42 | Day surgery (SDC) | payer MEDICARE, SELFPAY ==
--- OUTSIDE RECORDS SUMMARY | 2024-07-27 06:45 | XMS_ITS | CCD ---
Author Organization [facility] ion Partnership [facility] Care Team Providers Care Fringe Weaver Name Role Phone Vick KRAUS MD, Tyshawn Primary Care Provider [phone] Pb Sanabria Vick KRAUS MD, Tyshawn Primary Care Provider ALEXANDRA BELCHER Consulting Unavailable VICK, DR LAMAR [...] Consulting Unavailable NAYANA Hickman Primary Care Provider [phone] MD Pb Sanabria Attending Provider Pb Sanabria Attending Unavailable Pb Sanabria Admitting Unavailable Tyshawn Hickman Primary Care Unavailable TYSHAWN HICKMAN Primary Care Physician Timmis, Jose Cruz H Referring Unavailable Timmis, Jose Cruz H Attending Unavailable SusannesJose Cruz H Admitting Unavailable Vick KRAUS MD, Daniel Primary Care Provider JEYSON LEW Attending Unavailable ADALI, JEYSON Referring [...] sources) Cat Hair Extract Drug Allergy 05-31-2023 [facility] Medications Current Medications Medication Drug Class(es) [...] acid 7540 MG / polyethylene glycol 3350 04863 MG / potassium chloride 1200 MG / sodium ascorbate 71045 MG / sodium chloride 3200 MG Powder for Oral Solution) / 1 (polyethylene glycol 3350 453514 MG / potassium chloride 1000 MG / [...] (14 sources) Polyene Antifungal, Corticosteroid nystatin-triamcinolo ne 447041-4.1 UNIT/GM-% Ointment as needed. 0 Active omeprazole [...] Discharge) docusate sodium 50 mg / sennosides, residential 8.6 mg oral tablet (1 source) Start: [...] object(s), not elsewhere classified, initial encounter; Translations: [[facility] OT SHRP OB NOT ELSW CLASS INI] [...] Onset: 09-17-2022 Episodic Other aftercare (1 source) FPC (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; Translations: [ASSISTED CURRENT USE OF ASPIRIN] Onset: 10-04-2022 Episodic Other aftercare (1 source) Other exterminator helper (current) drug therapy; Translations: [OTH REGIONAL TRAINER CURRENT DRUG THERAPY] Onset: 10-04-2022 Episodic Other aftercare (1 source) salvage determiner (current) use of oral hypoglycemic drugs; Translations: [REGIONAL TRAINER USE ORAL HYPOGLYCEMIC DX] Onset: 10-04-2022 Episodic [...] 024 CRP [Mass/Vol] 5.5 mg/L Normal 0-10 [facility] Comment on above: Performed By: #### E SR, CREACT #### Testing performed at [address] [address] CRP [Mass/Vol] 5.5 mg/L 0 - 10 MG/L [facility] ESRon 12-12-2023 ESR (Bld) [Velocity] 29 mm/h Normal 0-30 [facility] Comment on above: Performed By: #### E SR, CREACT #### Testing performed at [address] [address] SEDIMENTATION RATE, AUTOMATE Don 12-12-2023 ESR (Bld) [Velocity] 29 mm/h Supremex [employer] [facility] CT Maxillofacial w/o Contras ton 12-05-2023 CT [...] Abdul MD Transcribed by: YAZ Technologist: NATALY [facility] Consent for Treatmenton Consent for Treatment [id number] 0TIFF [facility] Physician Orderon 11-14-2023 Physician Order [id number]#1.0 0TIFF [facility] Physician Order [id number]#1.0 0TIFF [facility] MG MAMM SCREEN 3D NGOC CADon 02-28-2023 MG MAMM SCREEN 3D NGOC CAD Patient: SIRIA PETTY Exam Date: 02/28/2023 : 1950 Gender:F Ordering : DR TYSHAWN HICKMAN M.D. Admission #: [id number] Family : Order #: [id number] CLICK HERE TO VIEW EXAM RADIOLOGY REPORT [...] Treatments None Family Cancers None LOCATION: [facility] BREAST COMPOSITION: Almost entirely fatty. FINDINGS: [...] Mcbride MD on 02/28/2023 at 14:23 Normal [facility] XR DEXA BONE DENSITYon 02-28 XR DEXA [...] by: PB MCBRIDE Date: 2023-02-28 15:36 Normal [facility] US Venous, Unilat, Lower Ext Righton 10-17-2022 [...] by Berhane Fernandez on 10/17/[address] [facility] Extra Hand XR HIP LT 2 3V W PELVISon [...] by: SOPHIA STEWART Date: 2022-10-03 00:50 Normal [facility] UPPER EXTREMITY INJECTION: L long A1on 08-08-2022 [...] fashion. The patient was prepped with alcohol. [facility] Radiology Study observation (narrative) [facility] MG MAMM DX 3D RT CADon 06-07 MG MAMM DX 3D RT CAD Patient: SIRIA PETTY Exam Date: 06/07/2022 : 1950 Gender:F Ordering : DR TYSHAWN HICKMAN M.D. Admission #: [id number] Family : Order #: [id number] CLICK HERE TO VIEW EXAM RADIOLOGY REPORT [...] Treatments None Family Cancers None LOCATION: [facility] BREAST COMPOSITION: Almost entirely fatty. FINDINGS: [...] M.D. on 06/07/2022 at 15:44 Normal [facility] CBC AUTO DIFFon 05-26-2022 BASO # 0.0 103/ul Normal 0.0-0.1 [facility] Comment on above: Performed By: #### C BC #### [facility] [address] [address] [address] Francesca Ortiz Basophils/100 WBC (Bld) 0.5 % Normal 0.2-2.0 [facility] Comment on above: Performed By: #### C BC #### [facility] [address] [address] [address] Francesca Ortiz EO # 0.1 103/ul Normal 0.0-0.7 [facility] Comment on above: Performed By: #### C BC #### [facility] [address] [place] [address] Dr. Francesca Ortiz Eosinophils/100 WBC (Bld) 1.9 % Normal 0.9-7.0 [facility] Comment on above: Performed By: #### C BC #### [facility] [address] [place] [address] Dr. Francesca Ortiz Erythrocyte distribution width (RBC) [Ratio] 13.5 % Normal 11.0-15.0 [facility] Comment on above: Performed By: #### C BC #### [facility] [address] [place] [address] Dr. Francesca Ortiz Hematocrit (Bld) [Volume fraction] 35.7 % Critically low 36.0-48.0 [facility] Comment on above: Performed By: #### C BC #### [facility] [address] [place] [address] Dr. Francesca Ortiz Hemoglobin (Bld) [Mass/Vol] 11.3 g/dL Critically low 12.0-16.0 [facility] Comment on above: Performed By: #### C BC #### [facility] [address] [place] [address] Dr. Francesca Ortiz IG # 0.01 10e3/ul Normal 0.00-0.03 [facility] Comment on above: Performed By: #### C BC #### [facility] [address] [place] [address] Dr. Francesca Ortiz IG % 0.2 % Normal 0.0-0.5 [facility] Comment on above: Performed By: #### C BC #### [facility] [address] [place] [address] Dr. Francesca Ortiz LYMPH # 1.7 103/ul Normal 1.2-3.8 [facility] Comment on above: Performed By: #### C BC #### [facility] [address] [place] [address] Dr. Francesca Ortiz Lymphocytes/100 WBC (Bld) 27.9 % Normal 20.5-60.0 [facility] Comment on above: Performed By: #### C BC #### [facility] [address] [place] [address] Dr. Francesca Ortiz MANUAL DIFF REQ NO Normal [facility] Comment on above: Performed By: #### C BC #### [facility] [address] [place] [address] Dr. Francesca Ortiz MCH (RBC) [Entitic mass] 29.9 pg Normal 26.7-34.0 [facility] Comment on above: Performed By: #### C BC #### [facility] [address] [place] [address] Dr. Francesca Ortiz MCHC (RBC) [Mass/Vol] 31.7 g/dL Normal 29.9-35.2 [facility] Comment on above: Performed By: #### C BC #### [facility] [address] [place] [address] Dr. Francesca Ortiz MCV (RBC) [Entitic vol] 94.4 fL Normal 81.0-99.0 [facility] Comment on above: Performed By: #### C BC #### [facility] [address] [place] [address] Dr. Francesca Ortiz MONO # 0.6 103/ul Normal 0.3-0.8 [facility] Comment on above: Performed By: #### C BC #### [facility] [address] [place] [address] Dr. Francesca Ortiz Monocytes/100 WBC (Bld) 9.9 % Normal 1.7-12.0 [facility] Comment on above: Performed By: #### C BC #### [facility] [address] [place] [address] Dr. Francesca Ortiz NEUT # 3.5 103/ul Normal 1.4-6.5 [facility] Comment on above: Performed By: #### C BC #### [facility] [address] [place] [address] Dr. Francesca Ortiz Neutrophils/100 WBC (Bld) 59.6 % Normal 43.0-75.0 [facility] Comment on above: Performed By: #### C BC #### [facility] [address] [place] [address] Dr. Francesca Ortiz Platelet mean volume (Bld) [Entitic vol] 10.7 fL Normal 9.5-13.5 [facility] Comment on above: Performed By: #### C BC #### [facility] [address] [place] [address] Dr. Francesca Ortiz PLT 131 103/ul Critically low 150-[address] [facility] Comment on above: Performed By: #### C BC #### [facility] [address] [place] [address] Dr. Francesca Ortiz RBC 3.78 106/ul Critically low 4.20-5.40 [facility] Comment on above: Performed By: #### C BC #### [facility] [address] [place] [address] Dr. Francesca Ortiz WBC 5.9 103/ul Normal 4.0-11.0 [facility] Comment on above: Performed By: #### C BC #### [facility] [address] [place] [address] Dr. Francesca Ortiz PROF 14(COMP METB)on 022 Albumin [Mass/Vol] 3.6 g/dL Normal 3.4-5.0 [facility] Comment on above: Performed By: #### C MP #### [facility] [address] [place] [address] Dr. Francesca Ortiz Albumin/Globulin [Mass ratio] 1.1 {ratio} Normal [facility] Comment on above: Performed By: #### C MP #### [facility] [address] [address] [address] Francesca Ortiz ALP [Catalytic activity/Vol] 93 U/L Normal 46-116 [facility] Comment on above: Performed By: #### C MP #### [facility] [address] [address] [address] Francesca Ortiz ALT [Catalytic activity/Vol] 33 U/L Normal 14-59 [facility] Comment on above: Performed By: #### C MP #### [facility] [address] [address] [address] Francesca Ortiz Anion gap [Moles/Vol] 13.2 mmol/L Normal [facility] Comment on above: Performed By: #### C MP #### [facility] [address] [place] [address] Dr. Francesca Ortiz AST [Catalytic activity/Vol] 34 U/L Normal 15-37 [facility] Comment on above: Performed By: #### C MP #### [facility] [address] [place] [address] Dr. Francesca Ortiz Bilirubin [Mass/Vol] 0.5 mg/dL Normal 0.2-1.0 [facility] Comment on above: Performed By: #### C MP #### [facility] [address] [place] [address] Dr. Francesca Ortiz Calcium [Mass/Vol] 9.0 mg/dL Normal 8.5-10.1 [facility] Comment on above: Performed By: #### C MP #### [facility] [address] [place] [address] Dr. Francesca Ortiz Chloride [Moles/Vol] 104 mmol/L Normal 98-107 [facility] Comment on above: Performed By: #### C MP #### [facility] [address] [address] [address] Francesca Ortiz CO2 [Moles/Vol] 27.2 mmol/L Normal 21.0-32.0 [facility] Comment on above: Performed By: #### C MP #### [facility] [address] [address] [address] Francesca Ortiz Creatinine [Mass/Vol] 0.92 mg/dL Normal 0.55-1.02 [facility] Comment on above: Performed By: #### C MP #### [facility] [address] [address] [address] Francesca Ortiz EGFR-AF PARAGUAYAN >60 Normal >=60 [facility] Comment on above: Performed By: #### C MP #### [facility] [address] [address] [address] Francesca Ortiz EGFR-NON AF PARAGUAYAN =60 Normal >=60 [facility] Comment on above: Performed By: #### C MP #### [facility] [address] [place] [address] Dr. Francesca Ortiz Globulin (S) [Mass/Vol] 3.4 g/dL Normal [facility] Comment on above: Performed By: #### C MP #### [facility] [address] [place] [address] Dr. Francesca Ortiz Glucose [Mass/Vol] 113 mg/dL Critically high 74-106 [facility] Comment on above: Performed By: #### C MP #### [facility] [address] [place] [address] Dr. Francesca Ortiz Potassium [Moles/Vol] 4.4 mmol/L Normal 3.5-5.1 [facility] Comment on above: Performed By: #### C MP #### [facility] [address] [place] [address] Dr. Francesca Ortiz Protein [Mass/Vol] 7.0 g/dL Normal 6.4-8.2 [facility] Comment on above: Performed By: #### C MP #### [facility] [address] [place] [address] Dr. Francesca Ortiz Sodium [Moles/Vol] 140 mmol/L Normal 136-145 [facility] Comment on above: Performed By: #### C MP #### [facility] [address] [place] [address] Dr. Francesca Ortiz Urea nitrogen [Mass/Vol] 17.0 mg/dL Normal 7.0-18.0 [facility] Comment on above: Performed By: #### C MP #### [facility] [address] [place] [address] Dr. Francesca Ortiz Urea nitrogen/Creatinine [Mass ratio] 18.5 mg/mg Normal [facility] Comment on above: Performed By: #### C MP #### [facility] [address] [place] [address] Dr. Francesca Ortiz XR HIP LT 2 [...] LUKE BLACKWOOD Date: 2022-05-26 15:55 Normal [facility] CBC AUTO DIFFon 05-10-2022 BASO # 0.0 103/ul Normal 0.0-0.1 [facility] Comment on above: Performed By: #### C BC #### [facility] [address] [place] [address] Dr. Francesca Ortiz Basophils/100 WBC (Bld) 0.4 % Normal 0.2-2.0 [facility] Comment on above: Performed By: #### C BC #### [facility] [address] [place] [address] Dr. Francesca Ortiz EO # 0.1 103/ul Normal 0.0-0.7 [facility] Comment on above: Performed By: #### C BC #### [facility] [address] [place] [address] Dr. Francesca Ortiz Eosinophils/100 WBC (Bld) 1.8 % Normal 0.9-7.0 [facility] Comment on above: Performed By: #### C BC #### [facility] [address] [place] [address] Dr. Francesca Ortiz Erythrocyte distribution width (RBC) [Ratio] 13.9 % Normal 11.0-15.0 [facility] Comment on above: Performed By: #### C BC #### [facility] [address] [place] [address] Dr. Francesca Ortiz Hematocrit (Bld) [Volume fraction] 36.8 % Normal 36.0-48.0 [facility] Comment on above: Performed By: #### C BC #### [facility] [address] [place] [address] Dr. Francesca Ortiz Hemoglobin (Bld) [Mass/Vol] 11.7 g/dL Critically low 12.0-16.0 [facility] Comment on above: Performed By: #### C BC #### [facility] [address] [place] [address] Dr. Francesca Ortiz IG # 0.01 10e3/ul Normal 0.00-0.03 [facility] Comment on above: Performed By: #### C BC #### [facility] [address] [place] [address] Dr. Francesca Ortiz IG % 0.2 % Normal 0.0-0.5 [facility] Comment on above: Performed By: #### C BC #### [facility] [address] [place] [address] Dr. Francesca Ortiz LYMPH # 1.6 103/ul Normal 1.2-3.8 [facility] Comment on above: Performed By: #### C BC #### [facility] [address] [place] [address] Dr. Francesca Ortiz Lymphocytes/100 WBC (Bld) 31.5 % Normal 20.5-60.0 [facility] Comment on above: Performed By: #### C BC #### [facility] [address] [place] [address] Dr. Francesca Ortiz MANUAL DIFF REQ NO Normal [facility] Comment on above: Performed By: #### C BC #### [facility] [address] [place] [address] Dr. Francesca Ortiz MCH (RBC) [Entitic mass] 30.0 pg Normal 26.7-34.0 [facility] Comment on above: Performed By: #### C BC #### [facility] [address] [place] [address] Dr. Francesca Ortiz MCHC (RBC) [Mass/Vol] 31.8 g/dL Normal 29.9-35.2 [facility] Comment on above: Performed By: #### C BC #### [facility] [address] [place] [address] Dr. Francesca Ortiz MCV (RBC) [Entitic vol] 94.4 fL Normal 81.0-99.0 [facility] Comment on above: Performed By: #### C BC #### [facility] [address] [place] [address] Dr. Francesca Ortiz MONO # 0.6 103/ul Normal 0.3-0.8 [facility] Comment on above: Performed By: #### C BC #### [facility] [address] [place] [address] Dr. Francesca Ortiz Monocytes/100 WBC (Bld) 11.0 % Normal 1.7-12.0 [facility] Comment on above: Performed By: #### C BC #### [facility] [address] [place] [address] Dr. Francesca Ortiz NEUT # 2.8 103/ul Normal 1.4-6.5 [facility] Comment on above: Performed By: #### C BC #### [facility] [address] [place] [address] Dr. Francesca Ortiz Neutrophils/100 WBC (Bld) 55.1 % Normal 43.0-75.0 [facility] Comment on above: Performed By: #### C BC #### [facility] [address] [place] [address] Dr. Francesca Ortiz Platelet mean volume (Bld) [Entitic vol] 11.0 fL Normal 9.5-13.5 [facility] Comment on above: Performed By: #### C BC #### [facility] [address] [address] [address] Francesca Ortiz PLT 136 103/ul Critically low 150-[address] [facility] Comment on above: Performed By: #### C BC #### [facility] [address] [address] [address] Francesca Ortiz RBC 3.90 106/ul Critically low 4.20-5.40 [facility] Comment on above: Performed By: #### C BC #### [facility] [address] [address] [address] Francesca Ortiz WBC 5.1 103/ul Normal 4.0-11.0 [facility] Comment on above: Performed By: #### C BC #### [facility] [address] [address] [address] ABD/PELV W CONon [...] CHEN ZAMORANO Date: 2022-05-10 15:30 Normal [facility] PROF CHEM 8 (BAS METB)on Anion gap [Moles/Vol] 9.9 mmol/L Normal [facility] Comment on above: Performed By: #### B MP #### [facility] [address] [place] [address] Dr. Francesca Ortiz Calcium [Mass/Vol] 9.5 mg/dL Normal 8.5-10.1 [facility] Comment on above: Performed By: #### B MP #### [facility] [address] [address] [address] Francesca Ortiz Chloride [Moles/Vol] 104 mmol/L Normal 98-107 [facility] Comment on above: Performed By: #### B MP #### [facility] [address] [address] [address] Francesca Ortiz CO2 [Moles/Vol] 27.2 mmol/L Normal 21.0-32.0 [facility] Comment on above: Performed By: #### B MP #### [facility] [address] [address] [address] Francesca Ortiz Creatinine [Mass/Vol] 0.88 mg/dL Normal 0.55-1.02 [facility] Comment on above: Performed By: #### B MP #### [facility] [address] [address] [address] Francesca Ortiz EGFR-AF PARAGUAYAN >60 Normal >=60 [facility] Comment on above: Performed By: #### B MP #### [facility] [address] [address] [address] Francesca Ortiz EGFR-NON AF PARAGUAYAN >60 Normal >=60 [facility] Comment on above: Performed By: #### B MP #### [facility] [address] [address] [address] Francesca Ortiz Glucose [Mass/Vol] 111 mg/dL Critically high 74-106 [facility] Comment on above: Performed By: #### B MP #### [facility] [address] [address] [address] Francesca Ortiz Potassium [Moles/Vol] 4.1 mmol/L Normal 3.5-5.1 [facility] Comment on above: Performed By: #### B MP #### [facility] [address] [address] [address] Francesca Ortiz Sodium [Moles/Vol] 137 mmol/L Normal 136-145 [facility] Comment on above: Performed By: #### B MP #### [facility] [address] [address] [address] Francesca Ortiz Urea nitrogen [Mass/Vol] 17.0 mg/dL Normal 7.0-18.0 [facility] Comment on above: Performed By: #### B MP #### [facility] [address] [address] [address] Francesca Ortiz Urea nitrogen/Creatinine [Mass ratio] 19.3 mg/mg Normal [facility] Comment on above: Performed By: #### B MP #### [facility] [address] [address] [address] Francesca Ortiz GLUCOSE (POC DEVICE)on 11-14 GLUCOSE, POINT OF CARE [facility] Interpretation and review of laboratory results Abnormal [facility] [place] [id number] [facility] HEMOGLOBIN & HEMATOCRITon Hematocrit (Bld) [Volume fraction] 34.9 % Low 36.0 - 48.0 % [facility] Hemoglobin (Bld) [Mass/Vol] 11.2 g/dL Low [facility] Interpretation and review of laboratory results Abnormal [facility] NOVEL CORONAVIRUS LAB 1 - NA SOPHARYNGEALon 11-14-2021 NARRATIVE -1 This test was performed using isothermal GIO and has been approved as Emergency Use Authorization (EUA) for the qualitative detection [id number] nucleic acid. [facility] SARS-CoV-2 (COVID-19) RNA GIO+probe Ql (Unsp spec) Not detected NOT DETECTED [facility] Comment on above: Negative results do not [...] patient is critically ill or clinically deteriorating. [facility] PROTIME-INRon 11-14-2021 INR Coag (PPP) [Relative time] 1.15 {INR} High [facility] Comment on above: 2.0-3.0 THERAPEUTIC RANGE 2.5-3.5 MECHANICAL VALVE RANGE Interpretation and review of laboratory results Abnormal [facility] PT Coag (PPP) [Time] 14.9 s High [facility] TYPE AND SCREEN - POSSIBLE T RANSFUSIONon 11-14-2021 ABO and Rh group Nom (Bld ) Positive [facility] ARM BAND NUMBER [id number] [facility] Blood group antibody screen Ql Negative [facility] EXPIRATION DATE 11/17/2021,4881 [facility] XR PELVIS AP ONLYon 11-14-20 21 [...] or dislocations. IMPRESSION IMPRESSION: Routine postoperative changes. [facility] Radiology Study observation (narrative) [facility] XR PELVIS AP ONLYOrdered By: Mohini Ramirez on 11-14-2021 [facility] Work Phone: Complete Blood Counton 11-07 Erythrocyte distribution width (RBC) [Ratio] 17.0 % High 11.0-15.0 [facility] Comment on above: Performed By: #### C BC #### [facility] [address], [place] [id number] Hematocrit (Bld) [Volume fraction] 37.3 % Normal 35.0-47.0 [facility] Comment on above: Performed By: #### C BC #### [facility] [address], [place] [id number] Hemoglobin (Bld) [Mass/Vol] 11.6 g/dL Normal 11.6-15.5 [facility] Comment on above: Performed By: #### C BC #### [facility] [address], [place] [id number] MCH (RBC) [Entitic mass] 28.6 pg Normal 27.0-33.0 [facility] Comment on above: Performed By: #### C BC #### [facility] [address], [place] [id number] MCHC (RBC) [Mass/Vol] 31.1 g/dL Low 32.0-36.0 [facility] Comment on above: Performed By: #### C BC #### [facility] [address], [place] [id number] MCV (RBC) [Entitic vol] 92 fL Normal 80-100 [facility] Comment on above: Performed By: #### C BC #### [facility] [address], [place] [id number] Platelet mean volume (Bld) [Entitic vol] 11.10 fL Normal 7.50-12.50 [facility] Comment on above: Performed By: #### C BC #### [facility] [address], [place] [id number] Platelets (Bld) [#/Vol] 155 10*3/uL Normal 140-400 [facility] Specialist Comment on above: Performed By: #### C BC #### [facility] [address], [place] [id number] RBC (Bld) [#/Vol] 4.06 10*6/uL Normal 3.90-5.20 [facility] Specialist Comment on above: Performed By: #### C BC #### [facility] [address], [place] [id number] RDW-SD 57.8 fL High 37.0-50.0 [facility] Comment on above: Performed By: #### C BC #### [facility] [address], [place] [id number] WBC (Bld) [#/Vol] 5.6 10*3/uL Normal 3.8-11.0 [facility] Comment on above: Performed By: #### C BC #### [facility] [address], [place] [id number] Vital Signs Date Time Vital Sign Value Performing Clinician Facility 12-12-2023 15:42-0500 Body height 157.5 cm Jeyson Lew MD Work Phone: [facility] 12-12-2023 15:42-0500 Body mass index (BMI) [Ratio] 33.11 kg/m2 Jeyson Lew MD Work Phone: [facility] 12-12-2023 15:42-0500 Body weight 82.1 kg Jeyson Lew MD Work Phone: [facility] 10-08-2023 13:00-0500 Body height 157.48 cm Pb [facility] Other [facility] Other 10-08-2023 13:00-0500 Body mass index (BMI) [Ratio] 32.55 kg/m2 Pb [facility] Other [facility] Other 10-08-2023 13:00-0500 Body weight 80.74 kg Pb [facility] Other [facility] Other 10-08-2023 13:00-0500 Diastolic blood pressure 67 mm[Hg] Pb [facility] Other [facility] Other 10-08-2023 13:00-0500 SaO2% (BldA) [Mass fraction] 95 % Pb [facility] Other [facility] Other 10-08-2023 13:00-0500 Systolic blood pressure 124 mm[Hg] Pb [facility] Other [facility] Other 11-27-2022 15:05-0500 Body height 157.5 cm Doug Sahni PARACHUTE CUSHION INSTALLER-UPHOLSTERER HELPER Work Phone: [facility] 11-27-2022 15:05-0500 Body mass index (BMI) [Ratio] 34.39 kg/m2 Doug Sahni APRN-UPHOLSTERER HELPER Work Phone: [facility] 11-27-2022 15:05-0500 Body temperature 97 [degF] Doug Sahni PARACHUTE CUSHION INSTALLER-UPHOLSTERER HELPER Work Phone: [facility] 11-27-2022 15:05-0500 Body weight 85.28 kg Doug Sahni APRN-UPHOLSTERER HELPER Work Phone: [facility] 08-08-2022 08:48-0400 Body height 157.5 cm Serafin Calles MD Work Phone: [facility] 08-08-2022 08:48-0400 Body mass index (BMI) [Ratio] 34.56 kg/m2 Serafin Calles MD Work Phone: [facility] 08-08-2022 08:48-0400 Body temperature 98.49 [degF] Serafin Calles MD Work Phone: [facility] 08-08-2022 08:48-0400 Body weight 85.7 kg Serafin Calles MD Work Phone: [facility] 08-01-2022 11:19-0400 Body height 157.5 cm Jeyson Lew MD Work Phone: [facility] 08-01-2022 11:19-0400 Body mass index (BMI) [Ratio] 34.57 kg/m2 Jeyson Lew MD Work Phone: [facility] 08-01-2022 11:19-0400 Body weight 85.73 kg Je[facility] Lew [facility] 04-06-2022 09:43-0400 Body height 157.5 cm Jeyson Lew MD Work Phone: [facility] [facility] 04-06-2022 09:43-0400 Body mass index (BMI) [Ratio] 34.57 kg/m2 Jeyson Lew MD Work Phone: [facility] 04-06-2022 09:43-0400 Body weight 85.73 kg Jeyson Lew MD Work Phone: [facility] 12-07-2021 14:22-0500 Body height 157.5 cm Doug Sahni PARACHUTE CUSHION INSTALLER-UPHOLSTERER HELPER Work Phone: [facility] 12-07-2021 14:22-0500 Body mass index (BMI) [Ratio] 34.57 kg/m2 Doug Sahni PARACHUTE CUSHION INSTALLER-UPHOLSTERER HELPER Work Phone: [facility] [facility] 12-07-2021 14:22-0500 Body temperature 98.2 [degF] Doug Sahni PARACHUTE CUSHION INSTALLER-UPHOLSTERER HELPER Work Phone: [facility] 12-07-2021 14:22-0500 Body weight 85.73 kg Doug Sahni PARACHUTE CUSHION INSTALLER-UPHOLSTERER HELPER Work Phone: [facility] 11-14-2021 18:30-0500 Diastolic blood pressure 68 mm[Hg] Jeyson Lew MD Work Phone: [facility] 11-14-2021 18:30-0500 Heart rate 73 /min Jeyson Lew MD Work Phone: [facility] 11-14-2021 18:30-0500 Respiratory rate 20 /min Jeyson Lew MD Work Phone: [facility] 11-14-2021 18:30-0500 SaO2% (BldA) [Mass fraction] 96 % Jeyson Lew MD Work Phone: [facility] 11-14-2021 18:30-0500 Systolic blood pressure 154 mm[Hg] Jeyson Lew MD Work Phone: [facility] 11-14-2021 12:44-0500 Body temperature 98.2 [degF] Jeyson Lew MD Work Phone: [facility] 11-14-2021 08:23-0500 Body height 157.5 cm Jeyson Lew MD Work Phone: [facility] 11-14-2021 08:23-0500 Body mass index (BMI) [Ratio] 34.39 kg/m2 Jeysno Lew MD Work Phone: [facility] 11-14-2021 08:23-0500 Body weight 85.28 kg Jeyson Lew MD Work Phone: [facility] 10-03-2021 14:00-0400 Body height 157.48 cm Pb [facility] Other [facility] Other 10-03-2021 14:00-0400 Body mass index (BMI) [Ratio] 35.3 kg/m2 Pb [facility] Other [facility] Other 10-03-2021 14:00-0400 Body temperature 97.7 [degF] Pb [facility] Other [facility] Other 10-03-2021 14:00-0400 Body weight 87.54 kg Pb [facility] Other [facility] Other 10-03-2021 14:00-0400 Diastolic blood pressure 71 mm[Hg] Pb [facility] Other [facility] Other 10-03-2021 14:00-0400 SaO2% (BldA) [Mass fraction] 98 % Pb Daniele Other [facility] Other 10-03-2021 14:00-0400 Systolic blood pressure 146 mm[Hg] Pb [facility] Other [facility] Other Encounters Encounter Date Encounter Type Care Provider Facility Start: 03-11-2024 End: 03-11-2024 ambulatory TYSHAWN Rodriguez HICKMAN Not Available Start: 01-20-2024 End: 01-20-2024 ambulatory TYSHAWN B HICKMAN Not Available Start: 12-30-2023 End: 12-30-2023 ambulatory TYSHAWN B HICKMAN Not Available Start: 12-19-2023 End: 12-19-2023 ambulatory TYSHAWN B HICKMAN Not Available Start: 12-12-2023 ambulatory [facility] Start: 12-12-2023 ambulatory [facility] Start: 12-12-2023 End: 12-12-2023 Office outpatient visit 15 minutes Jeyson Lew MD Work Phone: [facility] Comment on above: Primary osteoarthrit is of left hip (Primary Dx) Start: 12-12-2023 End: 12-12-2023 Subsequent hospital visit by physician Jeyson Lew MD Work Phone: [facility] Start: 12-11-2023 End: 12-11-2023 ambulatory JOSE CRUZ H TIMMIS Not Available Start: 12-05-2023 End: 12-06-2023 ambulatory Jose Cruz H Timmis Facility:[facility] Start: 12-05-2023 End: 12-05-2023 Patient encounter procedure Jose Cruz H Timmis [facility] Start: 11-04-2023 End: 11-04-2023 ambulatory JOSE CRUZ H TIMMIS Not Available Start: 10-08-2023 Office outpatient vi sit 25 minutes Pb [facility] Start: 10-08-2023 End: 10-08-2023 ambulatory NAYANA Tyshawn Hickman Work Phone: [facility] Work Phone: Start: 10-08-2023 End: 10-08-2023 Patient encounter procedure II Tyshawn Hickman Work Phone: [facility] Work Phone: Start: 02-28-2023 End: 03-01-[address] TYSHAWN HICKMAN Facility:[facility] Start: 01-03-2023 ambulatory JEYSON LEW [facility] Start: 11-27-2022 End: 11-27-2022 Office outpatient visit 15 minutes Doug Sahni APRN-UPHOLSTERER HELPER Work Phone: [facility] Comment on above: Primary osteoarthrit is of one hip, left (Primary Dx) Start: 11-27-2022 End: 11-27-2022 Subsequent hospital visit by physician Doug Sahni APRN-UPHOLSTERER HELPER Work Phone: [facility] Start: 10-03-2022 End: 10-03-[address] ROLA IVORY Facility:[facility] Start: 09-17-2022 End: 09-17-2022 ambulatory ALEXANDRA DOE . Facility:[facility] Start: 08-08-2022 End: 08-08-2022 Office outpatient new 30 minutes Serafin Calles MD Work Phone: [facility] Comment on above: Trigger finger of le ft hand, unspecified finger (Primary Dx) Start: 08-01-2022 End: 08-01-2022 Office outpatient visit 15 minutes Jeyson Lew MD Work Phone: [facility] Comment on above: Hx of total hip arth roplasty, left (Primary Dx); Pain due to left hip joint prosthesis, sequela Start: 08-01-2022 End: 08-01-2022 Subsequent hospital visit by physician Jeyson Lew MD Work Phone: [facility] Start: 06-07-2022 End: 06-08-[address] TYSHAWN HICKMAN Facility:[facility] Start: 05-28-2022 End: 05-29-[address] TYSHAWN HICKMAN Facility:[facility] Start: 05-26-2022 End: 05-26-[address] TYSHAWN HICKMAN Facility:[facility] Start: 05-10-2022 End: 05-10-[address] APRIL LÓPEZ . Facility:[facility] Start: 04-06-2022 End: 04-06-2022 Office outpatient visit 15 minutes Jeyson Lew MD Work Phone: [facility] Comment on above: Hx of total hip arth roplasty, left (Primary Dx) Start: 04-06-2022 End: 04-06-2022 Subsequent hospital visit by physician Jeyson Lew MD Work Phone: [facility] Start: 01-10-2022 End: 01-19-2022 Postop follow up visit related to original px Doug Sahni PARACHUTE CUSHION INSTALLER-UPHOLSTERER HELPER Work Phone: [facility] Comment on above: Hx of total hip arth roplasty, left (Primary Dx) Start: 12-07-2021 End: 12-07-2021 Postop follow up visit related to original px Jeyson Lew MD Work Phone: [facility] Comment on above: Hx of total hip arth roplasty, left (Primary Dx) Start: 12-07-2021 End: 12-07-2021 Subsequent hospital visit by physician Doug Sahni PARACHUTE CUSHION INSTALLER-UPHOLSTERER HELPER Work Phone: [facility] Start: 11-14-2021 End: 11-14-2021 Patient encounter status Jeyson Lew MD Work Phone: [facility] Start: 11-14-2021 End: 11-14-2021 Subsequent hospital visit by physician Jeyson Lew MD Work Phone: [facility] Comment on above: Primary osteoarthrit is of left hip Start: 11-06-2021 End: 11-06-2021 Admission to establishment Santiago Deysi Ont Pat Testing [facility] Comment on above: Preop testing (Prima ry Dx) Start: 11-06-2021 End: 11-06-2021 Patient encounter status Santiago Deysi Ont Pat Testing [facility] Start: 10-03-2021 End: 10-03-2021 ambulatory Pb [facility] Other [facility] Other Start: 10-03-2021 Office outpatient vi sit 25 minutes Pb Sanabria [facility] Procedures Date Procedure Procedure Detail Performing Clinician Start: 08-08-2022 Injection 1 tendon sheath/ligament aponeurosis Serafin Calles MD Work Phone: Start: 11-14-2021 Blood count hematocrit Doug Sahni PARACHUTE CUSHION INSTALLER-UPHOLSTERER HELPER Work Phone: Start: 11-14-2021 Gluc bld gluc mntr d ev cleared fda spec home use Jeyson Lew MD Work Phone: Start: 11-14-2021 Radiologic examinati on pelvis 1/2 views Doug Sahni PARACHUTE CUSHION INSTALLER-UPHOLSTERER HELPER Work Phone: Start: 11-14-2021 Iadna nos amplified probe tq each organism Doug Sahni PARACHUTE CUSHION INSTALLER-UPHOLSTERER HELPER Work Phone: Start: 11-14-2021 Blood typing serologic abo Jeyson Lew MD Work Phone: Start: 11-14-2021 Prothrombin time Jeyson Lew MD Work Phone: Plan of Treatment Date Care Activity Detail Author Start: 09-17-2032 Tetanus vaccination TETANUS [facility] Start: 08-03-2024 Tetanus vaccination TETANUS [facility] Start: 10-09-2023 Pneumococcal vaccination PNEUM OCOCCAL VACCINE SERIES (3 - PPSV23 or PCV20) [facility] Start: 08-02-2023 COVID-19 VACCINE ( season) COVID-19 VACCINE ( season) [facility] Start: 11-14-2022 End: 11-14-2022 Patient encounter procedure 11/14/2022 Office Visit Orthopaedics Doug Sahni, PARACHUTE CUSHION INSTALLER-UPHOLSTERER HELPER [address] [place] [address] [facility] Start: 10-10-2022 End: 10-10-2022 Patient encounter procedure 10/10/2022 Office Visit Orthopaedics Serafin Calles MD [address] [place] [address] [facility] Start: 10-04-2022 Screening for malign ant neoplasm of colon COLORECTAL CANCER SCREENING DISCUSSION [facility] Start: 08-31-2022 Potassium [Moles/vol ume] in Serum or Plasma POTASSIUM [facility] Start: 08-08-2022 End: 08-08-2022 Patient encounter procedure 08/08/2022 Office Visit Orthopaedics Serafin Calles MD [address] [place] [address] [facility] Start: 08-02-2022 Influenza vaccination INFLUENZA VACC INE (#1) [facility] Start: 03-15-2022 End: 03-15-2022 Patient encounter procedure 03/15/2022 Office Visit Orthopaedics Jeyson Lew MD [address] [place] [id number] [facility] Start: 12-28-2021 End: 12-28-2021 Patient encounter procedure [facility] Start: 12-07-2021 End: 12-07-2021 Patient encounter procedure 12/07/2021 Office Visit Orthopaedics Doug Sahni, PARACHUTE CUSHION INSTALLER-UPHOLSTERER HELPER [address] [place] [id number] [facility] Start: 11-14-2021 End: 11-14-2021 Admission to same day surgery center 11/14/2021 Surgery Multispecialty Jeyson Lew MD [address] [place] [id number] ARTHROPLASTY HIP TOTAL AL - LEFT [facility] Comment on above: ARTHROPLASTY HIP TOT AL AL - LEFT Start: 11-14-2021 End: 11-14-2021 Arthrp acetblr/prox fem prostc agrft/algrft ARTHROPLASTY HIP TOTAL LATERAL APPROACH Primary osteoarthritis of left hip 11/14/2021 10:00 AM EST [facility] Start: 11-14-2021 Subsequent hospital visit by physician 11/14/2021 Hospital Encounter Multispecialty Jeyson Lew MD [address] [id number] Primary osteoarthritis of left hip [facility] Comment on above: Primary osteoarthrit is of left hip Start: 09-16-2021 COVID-19 VACCINE (3 - Booster for Moderna series) COVID-19 VACCINE (3 - Booster for Moderna series) [facility] Start: 08-17-2021 COVID-19 VACCINE (3 - Booster for Moderna series) COVID-19 VACCINE (3 - Booster for Moderna series) [facility] Start: 08-02-2021 Influenza vaccination INFLUENZA VACC INE (#1) [facility] Start: 05-12-2021 COVID-19 VACCINE (3 - Booster for Moderna series) COVID-19 VACCINE (3 - Booster for Moderna series) [facility] Start: 10-27-2020 Screening for malign ant neoplasm of breast MAMMOGRAM SCREENING DISCUSSION [facility] Start: 10-09-2019 Pneumococcal vaccination PNEUM OCOCCAL VACCINE SERIES (#3) [facility] Start: 2017 Pneumococcal vaccination [facility] Start: 2002 Zoster vaccine hzv l bolivar for subcutaneous use ZOSTER (SHINGLES) VACCINE (1 of 2) [facility] Start: 1997 Colonoscopy COLORECTAL CAN CER SCREENING DISCUSSION [facility] Start: 1997 Screening for malign ant neoplasm of colon COLORECTAL CANCER SCREENING DISCUSSION [facility] Start: 1992 Fasting lipid profile LIPID SCREENIN G [facility] Start: 1992 Lipid panel LIPID SCREENING [facility] Start: 1992 Screening for malign ant neoplasm of breast MAMMOGRAM SCREENING DISCUSSION [facility] Start: 1992 Screening mammography MAMMOGRA M SCREENING DISCUSSION [facility] Start: 1973 Screening for malign ant neoplasm of cervix CERVICAL CANCER SCREENING DISCUSSION [facility] Start: 1971 Third diphtheria, tetanus and acellular pertussis (DTaP) vaccination TDAP (ADULT) [facility] Start: 1970 Tetanus vaccination TETANUS [facility] Start: 1952 Hepatitis C antibody , confirmatory test HEPATITIS C VIRUS SCREENING [facility] Start: 1952 Hepatitis C screening HEPATITI S C VIRUS SCREENING [facility] Start: 1950 Screening for osteoporosis DEXA SCAN DISCUSSION [facility] End: 11-14-2021 Radiography of hip [facility] Work Phone: Comment on above: One Time for 1 Occur rences starting 11/14/2021 until 11/14/2021 Skeletal X-ray of pe lvis and hip XR HIP WITH PELVIS LEFT Imaging Routine Hx of total hip arthroplasty, left 12/07/2021 1:53 PM [facility] Skeletal X-ray of pe lvis and hip XR HIP WITH PELVIS LEFT Imaging Routine Hx of total hip arthroplasty, left 01/16/2022 9:52 AM EST [facility] SURGICAL PATHOLOGY REQUEST SURGICAL PATHOLOGY REQUEST Surg Path Routine Primary osteoarthritis of left hip Release Upon Ordering for 1 Occurrences starting 11/14/2021 [facility] Comment on above: Release Upon Orderin g for 1 Occurrences starting 11/14/2021 XR Pelvis and Hip - left Views XR HIP WITH PELVIS LEFT Imaging Routine Hx of total hip arthroplasty, left 04/06/2022 8:24 AM EDT [facility] Work Phone: XR Pelvis and Hip - left Views XR HIP WITH PELVIS LEFT Imaging Routine Hx of total hip arthroplasty, left 08/01/2022 10:18 AM EDT [facility] XR Pelvis and Hip - left Views XR HIP WITH PELVIS LEFT Imaging Routine Hx of total hip arthroplasty, left 11/27/2022 2:46 PM EST [facility] XR Pelvis and Hip - left Views XR HIP WITH PELVIS LEFT Imaging Routine Primary osteoarthritis of left hip 12/12/2023 3:34 PM EST [facility] Immunizations Immunization Date Immunization Notes Care Provider Cherelle santo 09-06-2021 influenza virus vaccine, unspecified formulation Jeyson Lew MD Work Phone: [facility] 03-17-2021 COVID-19 mRNA-1273 (Moderna) II Tyshawn Hickman Work Phone: [facility] 02-17-2021 COVID-19 mRNA-1273 (Moderna) II Tyshawn Hickman Work Phone: [facility] 08-31-2020 influenza virus vaccine, unspecified formulation [facility] Payers Date Payer Category Payer Medicare [id number] 2021 Self-pay [id number] 2021 Medicare MEDICARE MEDICAR E A AND B [id number] 2021-Present [address] [place] [address] [id number]. [id number] 2021 Medicare [id number]. [id number] 2019 Unknown GENERIC PAYOR ME DICARE SUPPLEMENT [id number] 2019-Present [phone] [place] [address] [id number]. [id number] 2019 Unknown GENERIC PAYOR ME DICARE SUPPLEMENT [id number] 2019-Present [phone] [place] [address] 1.2.840.872272.1.13.172.2.7.3. [id number] 1959 Medicare [id number] 2.16.840.1.928555.19 1959 Medicare [id number] 1959 Unknown [id number] 2.16.840.1.805960.19 1959 Unknown [id number] 1952 Unknown [id number] 2.16.840.1.805008.3.579.2.593 1952 Unknown [id number] 2.16.840.1.702241.3.579.2.593 1952 Unknown [id number] 2.16.840.1.756368.3.579.2.593 1952 Unknown [id number] 2.16.840.1.516706.3.579.2.593 1952 Unknown [id number] 2.16.840.1.240962.3.579.2.593 1952 Unknown [id number] 2.16.840.1.622846.3.579.2.593 1952 Unknown [id number] 2.16.840.1.835613.3.579.2.593 1952 Unknown [id number] 2.16.840.1.212607.3.579.2.727 1952 Unknown [id number] 2.16.840.1.217871.3.579.2.983 1952 Unknown [id number] 2.16.840.1.418470.3.579.2.983 1952 Unknown [id number] 2.16.840.1.437823.3.579.2.983 1952 Unknown [id number] 2.16.840.1.997669.3.579.2.983 1952 Unknown [id number] 2.16.840.1.574643.3.579.2.1259 1952 Unknown [id number] 2.16.840.1.671102.3.579.2.1259 1952 Unknown [id number] 2.16.840.1.344291.3.579.2.1259 1952 Unknown [id number] 2.16.840.1.176877.3.579.2.1259 1952 Unknown [id number] 2.16.840.1.426749.3.579.2.1259 1952 Unknown [id number] 2.16.840.1.225936.3.579.2.1259 1952 Unknown [id number] 2.16.840.1.741673.3.579.2.1259 Unknown [employer] BC/ [id number] Unknown [id number] 2.16.840.1.879248.3.579.2.531 Social History Date Type Detail Facility Start: 08-10-2021 End: 11-27-2022 Tobacco smoking status NHIS Ex-smoker [facility] Start: 08-10-2021 End: 11-27-2022 Tobacco use and exposure Smokeless tobacco non-user [facility] Start: 11-02-2021 End: 12-12-2023 Alcohol intake Lifetime non-drinker (finding) [facility] Start: 08-10-2021 History SDOH Alcohol Frequency 1 [facility] Start: 08-10-2021 End: 11-27-2022 Tobacco Comment Quit 1999 [facility] Start: 1950 Sex Assigned At Not on file A [facility] Exposure to SARS-CoV -2 (event) Not sure [facility] Start: 12-12-2023 Sex Assigned At F [facility] History of tobacco use Current smoker [facility] Start: 1950 Sex Assigned At Female F [facility] Tobacco smoking status No Smokin g Status Entered [facility] Start: 12-12-2023 History of Social function [facility] Medical Equipment Procedure Code Equipment Code Equipment Original Text Equipment Identifier Dates [place] Gripton Acetabular Shell Sector 54mm Od [id number] Start: 11-14-2021 Altrx Polyethyle ne Acetabular Liner Neutral 36mm Id 54 Od [id number] Start: 11-14-2021 Femoral Stem Taper Actis Duofix Hip Prosthesis Cementless Size 6 Std Collar [id number] Start: 11-14-2021 Biolox Delta Cer amic Femoral Head +1.5 36mm Gracie 11/14 Taper [id number] Start: 11-14-2021 Suture [place], Biocompositie Corkscrew Ft, Vented With 1.3mm White/Blue And White/Black Suture Tape [id number] Start: 11-14-2021 Suture [place], Biocompositive Swivelock C, Closed Eyelet With #2 Fiberwire, 4.75 X 19.1mm [id number] Start: 11-14-2021 Suture [place], Biocompositive Swivelock C, Closed Eyelet With #2 [...] 12/12/2023 3:42 PM Patient: Siria Petty MR#: [id number] : 1950 Age: 73 y.o. Referring Physician: [...] Take 1 tablet by mouth daily. nystatin-triamcinolone 052977-4.1 UNIT/GM-% Ointment as needed. omeprazole 20 MG [...] 11/14/21. PLAN: I reviewed my findings with [facility]. We discussed the diagnosis, radiographs, physical exam [...] 12/12/2023 3:42 PM Patient: Siria Petty MR#: [id number] : 1950 Age: 73 y.o. Referring Physician: Self, Self Insurance: Payor: MEDICARE [employer] HMO / [facility] / Product Type: *No Product type* / [...] Take 1 tablet by mouth daily. nystatin-triamcinolone 445701-0.1 UNIT/GM-% Ointment as needed. omeprazole 20 MG [...] No Known Allergies. documented in this encounter [facility] 10-08-2023 Evaluation note Encounter Date Diagnosis Assessment [...] - G25.81) Not currently an active problem [place] Other 12-27-2022 History of Present illness Narrative* Chrystal Geovanny - 11/27/2022 3:20 PM EST Ortho Nurse - Established Patient Intake Room#: 5 Date: 11/27/2022 3:07 PM Patient: Siria Petty MR#: [id number] : 1950 Age: 72 y.o. 1yr L [...] Take 1 tablet by mouth daily. nystatin-triamcinolone 491131-6.1 UNIT/GM-% Ointment as needed. omeprazole 20 MG [...] by mouth daily., Disp: , Rfl: nystatin-triamcinolone 935806-1.1 UNIT/GM-% Ointment, as needed. , Disp: , [...] has No Known Allergies. * Doug Sahni APRN-UPHOLSTERER HELPER - 11/27/2022 3:20 PM EST HPI: Patient [...] 11/27/2022 3:07 PM Patient: Siria Petty MR#: [id number] : 1950 Age: 72 y.o. 1yr L [...] Take 1 tablet by mouth daily. nystatin-triamcinolone 594108-3.1 UNIT/GM-% Ointment as needed. omeprazole 20 MG [...] by mouth daily., Disp: , Rfl: nystatin-triamcinolone 462157-1.1 UNIT/GM-% Ointment, as needed. , Disp: , [...] has No Known Allergies. documented in this [facility]09-07-20[facility] History of Present illness Narrative* Heather [...] by mouth daily., Disp: , Rfl: nystatin-triamcinolone 871303-6.1 UNIT/GM-% Ointment, as needed. , Disp: , [...] in about 2 months. documented in this [facility]08-31-2022 History of Present illness Narrative* Jaswant Baldwin LPN - 08/01/2022 10:30 AM EDT Ortho Nurse - Established Patient Intake Room#: 3 Left TILA 11-14-21, had a fall on 05-10-22 went to [facility] and was told everything looked good and was given pain medication which she is done with. Before fall she states she was doing great with occasional pain of 2, since her fall the pain radiates down to her foot and is a 10 Date: 08/01/2022 11:26 AM Patient: Siria Petty MR#: [id number] : 1950 Age: 72 y.o. Referring Physician: [...] Take 1 tablet by mouth daily. nystatin-triamcinolone 230413-7.1 UNIT/GM-% Ointment as needed. acetaminophen 325 MG [...] by mouth daily., Disp: , Rfl: nystatin-triamcinolone 426064-4.1 UNIT/GM-% Ointment, as needed. , Disp: , [...] a fall on 05/10/21, went to the [facility] with reported unremarkable work up. She [...] had a fall on 05-10-22 went to [facility] and was told everything looked good and was given pain medication which she is done with. Before fall she states she was doing great with occasional pain of 2, since her fall the pain radiates down to her foot and is a 10 Date: 08/01/2022 11:26 AM Patient: Siria Petty MR#: [id number] : 1950 Age: 72 y.o. Referring Physician: [...] Take 1 tablet by mouth daily. nystatin-triamcinolone 434059-7.1 UNIT/GM-% Ointment as needed. acetaminophen 325 MG [...] by mouth daily., Disp: , Rfl: nystatin-triamcinolone 242744-6.1 UNIT/GM-% Ointment, as needed. , Disp: , [...] has No Known Allergies. [facility] History of Present illness Narrative* Jaswant Baldwin LPN - 04/06/2022 9:10 AM EDT Ortho Nurse - Established Patient Intake Room#: 1 4+ month left TILA A/L, some pain of 2, doing great Date: 04/06/2022 9:49 AM Patient: Siria Petty MR#: [id number] : 1950 Age: 71 y.o. Referring Physician: [...] Take 1 tablet by mouth daily. nystatin-triamcinolone 461838-8.1 UNIT/GM-% Ointment as needed. acetaminophen 325 MG [...] by mouth daily., Disp: , Rfl: nystatin-triamcinolone 904445-1.1 UNIT/GM-% Ointment, as needed. , Disp: , [...] 04/06/2022 9:49 AM Patient: Siria Petty MR#: [id number] : 1950 Age: 71 y.o. Referring Physician: [...] Take 1 tablet by mouth daily. nystatin-triamcinolone 268982-1.1 UNIT/GM-% Ointment as needed. acetaminophen 325 MG [...] by mouth daily., Disp: , Rfl: nystatin-triamcinolone 384875-7.1 UNIT/GM-% Ointment, as needed. , Disp: , [...] has No Known Allergies. documented in this [facility]02-09-20[facility] History of Present illness Narrative* Doug Sahni APRN-UPHOLSTERER HELPER - 01/10/2022 2:20 PM EST SUBJECTIVE: Siria [...] scheduled 4-month appointment or sooner as necessary. (DOC:[id number]) I have reviewed the findings of the clinical behavior support specialist and agree with their assessment. EDY Parra No notes on file documented in this [facility]01-06-2022 History of Present illness Narrative* EDY [...] visit. All pertinant portions of the clinical behavior support specialist documentation was reviewed. EDY Parra I have reviewed the findings of the clinical behavior support specialist and agree with their assessment. EDY Parra Ortho Nurse Established Patient Intake Room#: 4 Date: 12/07/2021 2:25 PM Patient: Siria Petty MR#: [id number] : 1950 Age: 71 y.o. 3wk S/P [...] Take 1 tablet by mouth daily. nystatin-triamcinolone 841595-6.1 UNIT/GM-% Ointment as needed. omeprazole 20 MG [...] by mouth daily., Disp: , Rfl: nystatin-triamcinolone 354762-4.1 UNIT/GM-% Ointment, as needed. , Disp: , [...] 12/07/2021 2:25 PM Patient: Siria Petty MR#: [id number] : 1950 Age: 71 y.o. 3wk S/P [...] Take 1 tablet by mouth daily. nystatin-triamcinolone 106464-7.1 UNIT/GM-% Ointment as needed. omeprazole 20 MG [...] by mouth daily., Disp: , Rfl: nystatin-triamcinolone 137363-2.1 UNIT/GM-% Ointment, as needed. , Disp: , [...] has No Known Allergies. documented in this [facility]12-14-[facility] Nurse Note* Yadira Salas RN - [...] - 11/14/2021 4:30 PM EST Doug Sahni UPHOLSTERER HELPER notified of Hgb Hct results,no further orders. * Yadira Salas RN - 11/14/2021 3:30 PM EST Took 50% of regular tray w/o nausea. * Nicole Laurent RN - 11/14/2021 12:47 PM EST Patient transferred to PACU via bed with this nurse and PEARL RESTORER. Bedside report given to ARTEMIO Quinones. * Nicole Laurent RN - 11/14/2021 11:36 AM EST OR room temp: 66.3 OR room humidity: 50 documented in this [facility]12[facility]14[facility] History of Present illness Narrative* Trisha [...] Transfer Skill: Sit To Stand, Rehab Eval Dickey (Sit-Stand Transfers) contact guard Physical Assist/Nonphysical Assist: Sit/Stand 1 person assist Weight-Bearing Restrictions: Sit/Stand toe touch weight-bearing Assistive Device For Transfer: Sit/Stand 2 wheeled walker Gait Skills, PT Eval Level of Dickey: Gait contact guard Physical Assist/Nonphysical Assist: Gait 1 person assist Weight-Bearing Restrictions: Gait toe touch weight-bearing Assistive Device For Transfer: Gait 2 wheeled walker Gait Distance 50 feet Gait Analysis, PT Eval Gait Pattern Used swing-to gait Stair Negotiation Dickey Level: Stair Negotiation contact guard assist Physical [...] Supine to Sit, Rehab Eval Level of Dickey: Supine/Sit stand-by assist Physical Assist/Nonphysical Assist: Supine/Sit 1 person assist;verbal cues Transfer Skill: Sit to Stand, Rehab Eval Level of Dickey: Sit/Stand contact guard Physical Assist/Nonphysical Assist: Sit/Stand 1 person assist Weight-Bearing Restrictions: Sit/Stand touch down weight-bearing Assistive Device for Transfer: Sit/Stand wheeled walker Upper Body Dressing Level of Dickey independent Physical Assist/Nonphysical Assist set-up required Lower Body Dressing Level of Dickey moderate assist (50% patients effort) Physical Assist/Nonphysical Assist 1 person assist (including TONIA hose) Assistive Device emt/dispatcher General Therapy Interventions Planned Therapy Interventions (OT Eval) ADL retraining;balance training;transfer training Clinical Impression Co-evaluation/co-treatment performed? Yes, combination of simultaneous billable and non-billable treatment Patient Instruction Pt instructed on LB dressing techniques utilizing emt/dispatcher to rodo underwear andshorts in sitting and [...] (OT Eval) bathing equipment;dressing equipment;raised toilet seat;tub bench;emt/dispatcher Today's Treatment Included Pt demonstrates moderate to [...] hygiene training Therapist Information License # [id number] 1. Pt will complete LB dressing min [...] 0.86 Docusate 100mg 4.00 APAP 325mg 4.00 [place] 5-325mg 1.80 Tramadol 50mg 1.35 Omeprazole 20mg 2.90 Ondansetron 4mg 4.00 Total $ 20.91 Patient Education Counseled patient on appropriate use and side effects of medications. Medications to be picked up in pharmacy Thaddeus Wallis PharmD [facility] [phone] * OSMEL Frazier - 11/14/2021 3:31 PM EST WAREHOUSE LOGISTICS MANAGER met with patient and spouse. OSMEL explained that it was recommended for the patient to dischargehome with home health services for CBC lab draw on 11/16 as well as 1 week of therapy for safety precaution awareness. WAREHOUSE LOGISTICS MANAGER was able to arrange services through [facility]. WAREHOUSE LOGISTICS MANAGER explained they would contact her to arrange [...] Supine to Sit, Rehab Eval Level of Dickey: Supine/Sit minimum assist (75% patients effort) Physical Assist/Nonphysical Assist: Supine/Sit 1 person assist Transfer Skill: Sit To Stand, Rehab Eval Dickey (Sit-Stand Transfers) contact guard Physical Assist/Nonphysical Assist: Sit/Stand 1 person assist Weight-Bearing Restrictions: Sit/Stand toe touch weight-bearing Assistive Device For Transfer: Sit/Stand 2 wheeled walker Gait Skills, PT Eval Level of Dickey: Gait contact guard Physical Assist/Nonphysical Assist: Gait [...] weight bearing status and 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 Pt performed ankle pumps and quad sets [...] given as rescue opiate. [facility]12[facility] Hospital Discharge instructions* Instructions* Raina Maurice [...] pillow between legs Hip Precautions: Contact Office ([phone]) if: > Any falls or injuries > [...] [place] office is closed, you may call [phone] where you will be connected with an after hours orthopedic nurse that will be able to answer your questions. documented in this encounter[facility] Center[facility] [id number] Miscellaneous Notes* Nursing Notes - Joni Ly RN - 11/14/2021 1:14 PM EST Discharged from PACU in stable condition at this time. Transported [facility] cart to [facility]. Cart placed in lowest position. Call light within reach. Pulse ox monitor on pt with alarms set. Report radha Salas Rn. [facility] [id number] Instructions* Patient Instructions* Rocio Peña RN - 11/06/2021 7:[address] Lew's office will call you for your arrival time, 1-2 business days before your scheduled surgery. Please review your surgery checklist and bring your guide or booklet the day of surgery. Pre-Admission Testing Dept. [phone] Call if you have any changes in [...] Yellow - take the day of surgery [place] - hold according to the doctor's instructions [...] YOUR SURGERY Last Dose: Date Time nystatin-triamcinolone 356426-1.1 UNIT/GM-% Ointment NEEDED CONTINUE, but DO NOT take the morning of surgery. Last Dose: Date Time documented in this [facility]11-02-[facility] Evaluation note* Encounter Date Diagnosis Assessment [...] fatigue, but may also predispose to RLS [place] Other Evaluation + Plan note No data available for this section [facility] Diagnosis Preop testing- Primary Preoperative examination, unspecified Primary osteoarthritis of left hip Primary localized osteoarthrosis, pelvic region and thigh [facility] Preop testing- Primary Preoperative examination, unspecified Abnormal coagulation profile Abnormal coagulation profile Encounter for preoperative screening laboratory testing for COVID-19 virus Primary osteoarthritis of left hip Primary localized osteoarthrosis, pelvic region and thigh Acute postoperative pain of left knee documented in this encounter [facility]* Diagnosis Hx of total hip arthroplasty, left- Primary Hx of total hip arthroplasty, left- Primary [facility] Diagnosis Hx of total hip arthroplasty, left- Primary documented in this encounter [facility]* Diagnosis Hx of total hip arthroplasty, left- Primary [facility]* Diagnosis Hx of total hip arthroplasty, left- Primary Pain due to left hip joint prosthesis, sequela documented in this encounter [facility]* Diagnosis Trigger finger of left hand, unspecified finger- Primary documented in this encounter [facility]* Diagnosis Primary osteoarthritis of one hip, left- Primary documented [facility] SystemEvaluation noteNo assessment information availableMedina [facility]tr Work Phone: Evaluation note* Diagnosis Primary osteoarthritis of left hip- Primary Primary localized osteoarthrosis, pelvic region and thigh [facility] SystemHistory general Narrative - Reported* Type Description Date Medical History COPD Medical History ADRIANNA Medical History diastolic CHF with preserved EF Medical History Type II diabetes diet controlled [place] Other History of Present illness Narrative* Rashmi [...] HEARING AIDS OR ANY TROUBLE HEARING Sl knik DIFFICULTY SWALLOWING no DENTAL APPLIANCES OR PROBLEMS (dentures, partials, loose teeth, missing teeth, broken teeth, caps or crowns) Dentures full BETA DONNIE USE yes STEROIDS IN THE PAST 2 YEARS no HISTORY OF BLOOD TRANSFUSION/REACTION no CULTURAL OR QUAKER BELIEFS THAT WILL AFFECT CARE no DIETARY [...] verbalized understanding of instructions. documented [facility] this [facility] No data available for this section [facility] No data available for this section [facility] HospitalReason for referral (narrative)* Consultation (Routine) - New Request Specialty Diagnoses / Procedures Referred By Arlet hall Referred To Contact Orthopaedics Diagnoses Hx of total hip arthroplasty, left Jeyson Lew MD [address] [place] [address] [phone] Serafin Calles MD [address] [place] [address] 55204 Referral ID Status Reason Start Date Expiration Date V isits Requested Visits Authorized [id number] New Request 08/01/2022 08/26/2023 1 1 * Medication Prior Authorization - Closed Specialty Diagnoses / Procedures Referred By Arlet hall Referred To Contact Jeyson Lew MD [address] [place] [address] 11253 Referral ID Status Reason Start Date Expiration Date Visits Re quested Visits Authorized [id number] Closed 1 1 * Adjunctive Therapy (Routine) - New Request Specialty Diagnoses / Procedures Referred By Arlet hall Referred To Contact Physical Therapy Diagnoses Hx of total hip arthroplasty, left Pain due to left hip joint prosthesis, sequela Jeyson Lew MD [address] [place] [address] [id number] Referral ID Status Reason Start Date Expiration Date V isits Requested Visits Authorized [id number] New Request 08/01/2022 08/26/2023 1 1 Scheduling Instructions . * Diagnostic X-Ray (Routine) - New Request Specialty Diagnoses / Procedures Referred By Contac t Referred To Contact Diagnoses Hx of total hip arthroplasty, left Procedures XR HIP WITH PELVIS LEFT Jeyson Lew MD [address] [place] [address] 32784 Referral ID Status Reason Start Date Expiration Date V isits Requested Visits Authorized [id number] New Request 07/20/2022 08/14/[address] [facility] for referral (narrative)* Consultation (Routine) - New Request Specialty Diagnoses / Procedures Referred By Contact Referred To Contact Physical Medicine & Rehabilitation Diagnoses Primary osteoarthritis of left hip Jeyson Lew MD [address] [place] [address] [phone] Pb Rosas DO [address] [place] [address] [id number] Referral ID Status Reason Start Date Expiration Date V isits Requested Visits Authorized [id number] New Request 12/12/2023 01/05/2025 1 1 * Diagnostic X-Ray (Routine) - New Request Specialty Diagnoses / Procedures Referred By Contac t Referred To Contact Diagnoses Primary osteoarthritis of left hip Procedures XR HIP WITH PELVIS LEFT Jeyson Lew MD [address] [place] [address] 44213 Referral ID Status Reason Start Date Expiration Date V isits Requested Visits Authorized [id number] New Request 12/12/2023 01/05/[address] [facility] for visit Narrative* Auth/Cert Specialty Diagnoses / Procedures Referred By Contac t Referred To Contact Diagnoses Primary osteoarthritis of left hip Primary osteoarthritis of left hip [M16.12] Procedures HI TOTAL HIP ARTHROPLASTY ARTHROPLASTY HIP TOTAL LATERAL APPROACH Jeyson Lew MD [address] [place] [address] 55057 Referral ID Status Reason Start Date Expiration Date Visits Re quested Visits Authorized [id number] 10/18/2021 1 1 [facility] Advance Directives No Advanced Directives Records FoundLatest [...] XR HIP WITH PELVIS LEFT Doug Sahni APRN-UPHOLSTERER HELPER [address] [place] [address] Referral ID Status Reason Start Date Expiration Date V isits Requested Visits Authorized [id number] New Request 11/30/2021 12/25/2022 1 1 Referral ID Status Reason Start Date Expiration Date V isits Requested Visits Authorized [id number] New Request 01/16/2022 02/10/2023 1 1 Specialty Diagnoses / Procedures Referred By Contac t Referred To Contact Diagnoses Hx of total hip arthroplasty, left Procedures XR HIP WITH PELVIS LEFT Jeyson Lew MD [address] [place] [address] Referral ID Status Reason Start Date Expiration Date V isits Requested Visits Authorized [id number] New Request 03/30/2022 04/24/2023 1 1 Summary [...] XR HIP WITH PELVIS LEFT Doug Sahni APRN-UPHOLSTERER HELPER [address] [place] [address] 06653 Referral ID Status Reason Start Date Expiration Date V isits Requested Visits Authorized [id number] New Request 11/30/2021 12/25/2022 1 1 Reason Comments Post Op Visit Specialty Diagnoses / Procedures Referred By Contac t Referred To Contact Diagnoses Hx of total hip arthroplasty, left Procedures XR HIP WITH PELVIS LEFT Jeyson Lew MD [address] [place] [address] 18136 Referral ID Status Reason Start Date Expiration Date V isits Requested Visits Authorized [id number] New Request 03/30/2022 04/24/2023 1 1 Referral ID Status Reason Start Date Expiration Date V isits Requested Visits Authorized [id number] New Request 07/20/2022 08/14/2023 1 1 Reason Comments Pain Reason Comments Consult Middle finger trigge ring Specialty Diagnoses / Procedures Referred By Contac t Referred To Contact Orthopaedics Diagnoses Hx of total hip arthroplasty, left Jeyson Lew MD [address] [place] [address] [phone] Serafin Calles MD [address] [place] [address] 14188 Referral ID Status Reason Start Date Expiration Date V isits Requested Visits Authorized [id number] New Request 08/01/2022 08/26/2023 1 1 Referral ID Status Reason Start Date Expiration Date V isits Requested Visits Authorized [id number] New Request 11/21/2022 12/16/2023 1 1 Reason Comments Follow-up Specialty Diagnoses / Procedures Referred By Contac t Referred To Contact Diagnoses Primary osteoarthritis of left hip Procedures XR HIP WITH PELVIS LEFT Jeyson Lew MD [address] [place] [address] 04242 Referral ID Status Reason Start Date Expiration Date V isits Requested Visits Authorized [id number] New Request 12/12/2023 01/05/2025 1 1 Reason Comments Pain Care Teams (unrecognized sec tion and content) Fringe Weaver Relationship Specialty Start Date End Date Tyshawn Hickman II, MD [address] [place] [address] PCP - General Internal Medicine 08/10/21 Fringe Weaver Relationship Specialty Start Date End Date Tyshawn Hickman II, MD [address] [place] [address] PCP - General Internal Medicine 08/10/21 Fringe Weaver Relationship Specialty Start Date End Date Tyshawn Hickman II, MD [address] [place] [address] PCP - General Internal Medicine 08/10/21 Fringe Weaver Relationship Specialty Start Date End Date Tyshawn Hickman II, MD [address] [place] [address] PCP - General Internal Medicine 08/10/21 Fringe Weaver Relationship Specialty Start Date End Date Tyshawn Hickman II, MD [address] [place] [address] PCP - General Internal Medicine 08/10/21 Fringe Weaver Relationship Specialty Start Date End Date Tyshawn Hickman II, MD [address] [place] [address] PCP - General Internal Medicine 08/10/21 Fringe Weaver Relationship Specialty Start Date End Date Tyshawn Hickman II, MD [address] [place] [address] PCP - General Internal Medicine 08/10/21 Fringe Weaver Relationship Specialty Start Date End Date Tyshawn Hickman II, MD [address] [place] [address] PCP - General Internal Medicine 08/10/21 Fringe Weaver Relationship Specialty Start Date End Date Tyshawn Hickman II, MD [address] [place] [address] PCP - General Internal Medicine 08/10/21 Fringe Weaver Relationship Specialty Start Date End Date Tyshawn Hickman II, MD [address] [place] [address] PCP - General Internal Medicine 08/10/21 Fringe Weaver Relationship Specialty Start Date End Date Tyshawn Hickman II, MD [address] [place], [place] [id number] PCP - General Internal Medicine 08/10/21 Team Status: Active Member Role Status Dates Tyshawn Hickman II MD Primary Care Provider Active Team Status: Inactive Member Role Status Dates Tyshawn Hickman II MD Primary Care Provider Active Pb Sanabria MD Attending Provider Active Fringe Weaver Relationship Specialty Start Date End Date Tyshawn Hickman II, MD [address] [place] [address] PCP - General Internal Medicine 08/10/21 Fringe Weaver Relationship Specialty Start Date End Date Tyshawn Hickman II, MD [address] [place] [address] PCP - General Internal Medicine 08/10/21 Scheduled [...] 2 g, Intravenous, Administer over 30 Minutes, JAVA WEB USER INTERFACE DEVELOPER TO PROCEDURE, 1 dose, Starting on Sat11/14/21 at 0754, Until Discontinued, Other, Pre-operative antibiotic, For 15 Minutes, Pre-op/Pre-Proc 1051 (Given - Provid er: Jessica Rosa, PARACHUTE CUSHION INSTALLER-PEARL RESTORER - Comment: PSR s/p negative test dose) [...] section and content) DATE CREATED AUTHOR 10/17/2022 [facility] dical Specialist DATE CREATED AUTHOR AUTHOR'S ORGANIZ ATION 03/08/2023 [facility] DATE CREATED AUTHOR AUTHOR'S ORGANIZ ATION 10/12/2023 [facility] DATE CREATED AUTHOR AUTHOR'S ORGANIZ ATION 12/06/2023 [facility] DATE CREATED AUTHOR AUTHOR'S ORGANIZ ATION 12/20/2023 [facility] DATE CREATED AUTHOR AUTHOR'S ORGANIZ ATION 03/12/2024 [facility] dical Specialists EPIC Goals (unrecognized section and [...] BE BASED ON THE PRIMARY CLINICAL RECORDS. [facility]. provides no warranty or guarantee of the accuracy or completeness of information in this document.
[2024-07-27 06:49] VITALS: BP 141/60; PULSE 77; TEMP 36.4; O2SAT 97
[2024-07-27 07:06] LABS: Glucometer 110 mg/dL (74-106)
[2024-07-27 07:34] VITALS: BP 188/74
[2024-07-27] MEDS: BUPIVACAINE HCL 0.25% PF 25 MG/10 ML VIAL INJ (07:35)
[2024-07-27] MEDS: 0.9 % SODIUM CHLORIDE 10 ML SYRINGE - SALINE FLUSH INJ (07:35)
[2024-07-27] MEDS: TRIAMCINOLONE ACETONIDE 40 MG/ML VIAL 80 MG INJ (07:36)
[2024-07-27] MEDS: IOHEXOL 240 MG/ML - 10 ML VIAL INJ (07:36)
[2024-07-27] MEDS: LIDOCAINE HCL 2% 400 MG/20 ML MDV 5 ML INJ (07:36)
[2024-07-27 07:37] VITALS: BP 166/75; PULSE 87; PULSE 88; O2SAT 95
--- NOTE | 2024-07-27 07:39 | P.ON_ITS ---
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 Informed consent was obtained and placed on the chart.? Patient was brought to the medical procedure unit and placed in the prone position where a timeout was completed verifying the correct patient, procedure site, position, and planned special equipment using sterile aseptic technique.? Under direct fluoroscopic visualization a 25-gauge Quincke tipped spinal needle was advanced to the designated neural foramen where contrast dye was injected to show adequate spread.? The needle was inserted at level left L4-5. There was no evidence of vascular or adverse uptake.? Epidural spread was appreciated.? The above- mentioned injectate was then placed in a 1.5 mL aliquot preceded by negative aspiration.? The needle was removed. The needle was inserted and the procedure repeated at level left L5-S1.? The surgery site was covered.? Patient was taken to the postprocedural recovery area and monitored for an appropriate length of time before found suitable for discharge in the accompaniment of a responsible adult. Anesthesia: Local Surgeon: Erich Terry Pathology: none sent Condition: stable Disposition: no change
== END 2024-07-27 07:45 | disposition home or self-care (01) ==
LOC: SURGOUT 06:42
PROVIDERS: PCP Internal Medicine; Visit Provider Anesthesiology
DX: M48.062 Spinal stenosis, lumbar region with neurogenic claudication (principal); Z79.84 Long term (current) use of oral hypoglycemic drugs
CPT/HCPCS: 36415; 64483; 64484; 82948; J0665; J3301; Q9966

== ENCOUNTER 2024-08-05 08:10 | Outpatient (OUT) | payer MEDICARE, SELFPAY ==
--- OUTSIDE RECORDS SUMMARY | 2024-08-05 08:19 | XMS_ITS | CCD ---
Author Organization [facility] Inform ion Partnership [facility] Care Team Providers Care [employer] Inspector Name Role Phone Vick KRAUS MD, Tyshawn Primary Care Provider Pb Sanabria Vick KRAUS MD, Tyshawn Primary Care Provider [phone] ALEXANDRA BELCHER Consulting Unavailable VICK, DR LAMAR [...] Consulting Unavailable NAYANA Hickman Primary Care Provider [phone] MD Pb Sanabria Attending Provider Pb Sanabria Attending Unavailable Pb Sanabria Admitting Unavailable Tyshawn Hickman Primary Care Unavailable TYSHAWN HICKMAN Primary Care Physician Timmis, Jose Cruz H Referring Unavailable Timmis, Jose Cruz H Attending Unavailable SusannesJose Cruz H Admitting Unavailable Vick KRAUS MD, Daniel Primary Care Provider [phone] JEYSON LEW Attending Unavailable ADALI, JEYSON Referring [...] sources) Cat Hair Extract Drug Allergy 05-31-2023 [employer] [facility] Medications Current Medications Medication Drug Class(es) [...] acid 7540 MG / polyethylene glycol 3350 27654 MG / potassium chloride 1200 MG / sodium ascorbate 61140 MG / sodium chloride 3200 MG Powder for Oral Solution) / 1 (polyethylene glycol 3350 632787 MG / potassium chloride 1000 MG / [...] (14 sources) Polyene Antifungal, Corticosteroid nystatin-triamcinolo [place] 939640-8.1 UNIT/GM-% Ointment as needed. 0 Active omeprazole [...] Discharge) docusate sodium 50 mg / sennosides, assisted 8.6 mg oral tablet (1 source) Start: [...] object(s), not elsewhere classified, initial encounter; Translations: [[facility] OT SHRP OB NOT ELSW [...] Onset: 09-17-2022 Episodic Other aftercare (1 source) USP (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; Translations: [COACH WIRER CURRENT USE OF ASPIRIN] Onset: 10-04-2022 Episodic Other aftercare (1 source) Other mcfp (current) drug therapy; Translations: [OTH COACH WIRER CURRENT DRUG THERAPY] Onset: 10-04-2022 Episodic Other aftercare (1 source) manager terminal (current) use of oral hypoglycemic drugs; Translations: [PENITENTIARY USE ORAL HYPOGLYCEMIC DX] Onset: 10-04-2022 Episodic [...] 024 CRP [Mass/Vol] 5.5 mg/L Normal 0-10 [facility] Comment on above: Performed By: #### E SR, CREACT #### Testing performed at [address] [address] CRP [Mass/Vol] 5.5 mg/L 0 - 10 MG/L [facility] ESRon 12-12-2023 ESR (Bld) [Velocity] 29 mm/h Normal 0-30 [facility] Comment on above: Performed By: #### E SR, CREACT #### Testing performed at [address] [address] SEDIMENTATION RATE, AUTOMATE Don 12-12-2023 ESR (Bld) [Velocity] 29 mm/h Open[facility] CT Maxillofacial w/o Contras ton 12-05-2023 CT [...] Abdul MD Transcribed by: YAZ Technologist: NATALY [facility] Consent for Treatmenton Consent for Treatment [id number] 0TIFF [facility] Physician Orderon 11-14-2023 Physician Order [id number] 0TIFF [facility] Physician Order [id number] 0TIFF [facility] MG MAMM SCREEN 3D NGOC CADon 02-28-2023 MG MAMM SCREEN 3D NGOC CAD Patient: SIRIA PETTY Exam Date: 02/28/2023 : 1950 Gender:F Ordering : DR TYSHAWN HICKMAN M.D. Admission #: [id number] Family : Order #: [id number] CLICK HERE TO VIEW EXAM RADIOLOGY REPORT [...] Treatments None Family Cancers None LOCATION: [facility] BREAST COMPOSITION: Almost entirely fatty. [...] Mcbride MD on 02/28/2023 at 14:23 Normal [facility] XR DEXA BONE DENSITYon 02-28 XR DEXA [...] by: PB MCBRIDE Date: 2023-02-28 15:36 Normal [facility] US Venous, Unilat, Lower Ext [...] by Berhane Fernandez on 10/17/2022 1156 Normal [facility] Manager Presentation XR HIP LT 2 3V W PELVISon [...] by: SOPHIA STEWART Date: 2022-10-03 00:50 Normal [facility] UPPER EXTREMITY INJECTION: L long A1on 08-08-2022 [...] fashion. The patient was prepped with alcohol. [facility] Radiology Study observation (narrative) [facility] MG MAMM DX 3D RT CADon 06-07 MG MAMM DX 3D RT CAD Patient: SIRIA PETTY Exam Date: 06/07/2022 : 1950 Gender:F Ordering : DR TYSHAWN HICKMAN M.D. Admission #: [id number] Family : Order #: [id number] CLICK HERE TO VIEW EXAM RADIOLOGY REPORT [...] Treatments None Family Cancers None LOCATION: [facility] BREAST COMPOSITION: Almost entirely fatty. [...] M.D. on 06/07/2022 at 15:44 Normal [facility] CBC AUTO DIFFon 05-26-2022 BASO # 0.0 103/ul Normal 0.0-0.1 [facility] Comment on above: Performed By: #### C BC #### [facility] [address] [address] [address] Francesca Ortiz Basophils/100 WBC (Bld) 0.5 % Normal 0.2-2.0 [facility] Comment on above: Performed By: #### C BC #### [facility] [address] [address] [address] Francesca Ortiz EO # 0.1 103/ul Normal 0.0-0.7 [facility] Comment on above: Performed By: #### C BC #### [facility] [address] [place] [address] Dr. Francesca Ortiz Eosinophils/100 WBC (Bld) 1.9 % Normal 0.9-7.0 [facility] Comment on above: Performed By: #### C BC #### [facility] [address] [place] [address] Dr. Francesca Ortiz Erythrocyte distribution width (RBC) [Ratio] 13.5 % Normal 11.0-15.0 [facility] Comment on above: Performed By: #### C BC #### [facility] [address] [place] [address] Dr. Francesca Ortiz Hematocrit (Bld) [Volume fraction] 35.7 % Critically low 36.0-48.0 [facility] Comment on above: Performed By: #### C BC #### [facility] [address] [place] [address] Dr. Francesca Ortiz Hemoglobin (Bld) [Mass/Vol] 11.3 g/dL Critically low 12.0-16.0 [facility] Comment on above: Performed By: #### C BC #### [facility] [address] [place] [address] Dr. Francesca Ortiz IG # 0.01 10e3/ul Normal 0.00-0.03 [facility] Comment on above: Performed By: #### C BC #### [facility] [address] [place] [address] Dr. Francesca Ortiz IG % 0.2 % Normal 0.0-0.5 [facility] Comment on above: Performed By: #### C BC #### [facility] [address] [place] [address] Dr. Francesca Ortiz LYMPH # 1.7 103/ul Normal 1.2-3.8 [facility] Comment on above: Performed By: #### C BC #### [facility] [address] [place] [address] Dr. Francesca Ortiz Lymphocytes/100 WBC (Bld) 27.9 % Normal 20.5-60.0 [facility] Comment on above: Performed By: #### C BC #### [facility] [address] [place] [address] Dr. Francesca Ortiz MANUAL DIFF REQ NO Normal [facility] Comment on above: Performed By: #### C BC #### [facility] [address] [place] [address] Dr. Francesca Ortiz MCH (RBC) [Entitic mass] 29.9 pg Normal 26.7-34.0 [facility] Comment on above: Performed By: #### C BC #### [facility] [address] [place] [address] Dr. Francesca Ortiz MCHC (RBC) [Mass/Vol] 31.7 g/dL Normal 29.9-35.2 [facility] Comment on above: Performed By: #### C BC #### [facility] [address] [place] [address] Dr. Francesca Ortiz MCV (RBC) [Entitic vol] 94.4 fL Normal 81.0-99.0 [facility] Comment on above: Performed By: #### C BC #### [facility] [address] [place] [address] Dr. Francesca Ortiz MONO # 0.6 103/ul Normal 0.3-0.8 [facility] Comment on above: Performed By: #### C BC #### [facility] [address] [place] [address] Dr. Francesca Ortiz Monocytes/100 WBC (Bld) 9.9 % Normal 1.7-12.0 [facility] Comment on above: Performed By: #### C BC #### [facility] [address] [place] [address] Dr. Francesca Ortiz NEUT # 3.5 103/ul Normal 1.4-6.5 [facility] Comment on above: Performed By: #### C BC #### [facility] [address] [place] [address] Dr. Francesca Ortiz Neutrophils/100 WBC (Bld) 59.6 % Normal 43.0-75.0 [facility] Comment on above: Performed By: #### C BC #### [facility] [address] [place] [address] Dr. Francesca Ortiz Platelet mean volume (Bld) [Entitic vol] 10.7 fL Normal 9.5-13.5 [facility] Comment on above: Performed By: #### C BC #### [facility] [address] [place] [address] Dr. Francesca Ortiz PLT 131 103/ul Critically low 150-450 [facility] Comment on above: Performed By: #### C BC #### [facility] [address] [place] [address] Dr. Francesca Ortiz RBC 3.78 106/ul Critically low 4.20-5.40 [facility] Comment on above: Performed By: #### C BC #### [facility] [address] [place] [address] Dr. Francesca Ortiz WBC 5.9 103/ul Normal 4.0-11.0 [facility] Comment on above: Performed By: #### C BC #### [facility] [address] [place] [address] Dr. Francesca Ortiz PROF 14(COMP METB)on 022 Albumin [Mass/Vol] 3.6 g/dL Normal 3.4-5.0 [facility] Comment on above: Performed By: #### C MP #### [facility] [address] [place] [address] Dr. Francesca Ortiz Albumin/Globulin [Mass ratio] 1.1 {ratio} Normal [facility] Comment on above: Performed By: #### C MP #### [facility] [address] [address] [address] Francesca Ortiz ALP [Catalytic activity/Vol] 93 U/L Normal 46-116 [facility] Comment on above: Performed By: #### C MP #### [facility] [address] [address] [address] Francesca Ortiz ALT [Catalytic activity/Vol] 33 U/L Normal 14-59 [facility] Comment on above: Performed By: #### C MP #### [facility] [address] [address] [address] Francesca Ortiz Anion gap [Moles/Vol] 13.2 mmol/L Normal [facility] Comment on above: Performed By: #### C MP #### [facility] [address] [place] [address] Dr. Francesca Ortiz AST [Catalytic activity/Vol] 34 U/L Normal 15-37 [facility] Comment on above: Performed By: #### C MP #### [facility] [address] [place] [address] Dr. Francesca Ortiz Bilirubin [Mass/Vol] 0.5 mg/dL Normal 0.2-1.0 [facility] Comment on above: Performed By: #### C MP #### [facility] [address] [place] [address] Dr. Francesca Ortiz Calcium [Mass/Vol] 9.0 mg/dL Normal 8.5-10.1 [facility] Comment on above: Performed By: #### C MP #### [facility] [address] [place] [address] Dr. Francesca Ortiz Chloride [Moles/Vol] 104 mmol/L Normal 98-107 [facility] Comment on above: Performed By: #### C MP #### [facility] [address] [address] [address] Francesca Ortiz CO2 [Moles/Vol] 27.2 mmol/L Normal 21.0-32.0 [facility] Comment on above: Performed By: #### C MP #### [facility] [address] [address] [address] Francesca Ortiz Creatinine [Mass/Vol] 0.92 mg/dL Normal 0.55-1.02 [facility] Comment on above: Performed By: #### C MP #### [facility] [address] [address] [address] Francesca Ortiz EGFR-AF ECUADOREAN >60 Normal >=60 [facility] Comment on above: Performed By: #### C MP #### [facility] [address] [address] [address] Francesca Ortiz EGFR-NON AF ECUADOREAN =60 Normal >=60 [facility] Comment on above: Performed By: #### C MP #### [facility] [address] [place] [address] Dr. Francesca Ortiz Globulin (S) [Mass/Vol] 3.4 g/dL Normal [facility] Comment on above: Performed By: #### C MP #### [facility] [address] [place] [address] Dr. Francesca Ortiz Glucose [Mass/Vol] 113 mg/dL Critically high 74-106 [facility] Comment on above: Performed By: #### C MP #### [facility] [address] [place] [address] Dr. Francesca Ortiz Potassium [Moles/Vol] 4.4 mmol/L Normal 3.5-5.1 [facility] Comment on above: Performed By: #### C MP #### [facility] [address] [place] [address] Dr. Francesca Ortiz Protein [Mass/Vol] 7.0 g/dL Normal 6.4-8.2 [facility] Comment on above: Performed By: #### C MP #### [facility] [address] [place] [address] Dr. Francesca Ortiz Sodium [Moles/Vol] 140 mmol/L Normal 136-145 [facility] Comment on above: Performed By: #### C MP #### [facility] [address] [place] [address] Dr. Francesca Ortiz Urea nitrogen [Mass/Vol] 17.0 mg/dL Normal 7.0-18.0 [facility] Comment on above: Performed By: #### C MP #### [facility] [address] [place] [address] Dr. Francesca Ortiz Urea nitrogen/Creatinine [Mass ratio] 18.5 mg/mg Normal [facility] Comment on above: Performed By: #### C MP #### [facility] [address] [place] [address] Dr. Francesca Ortiz XR HIP LT 2 [...] LUKE BLACKWOOD Date: 2022-05-26 15:55 Normal [facility] CBC AUTO DIFFon 05-10-2022 BASO # 0.0 103/ul Normal 0.0-0.1 [facility] Comment on above: Performed By: #### C BC #### [facility] [address] [place] [address] Dr. Francesca Ortiz Basophils/100 WBC (Bld) 0.4 % Normal 0.2-2.0 [facility] Comment on above: Performed By: #### C BC #### [facility] [address] [place] [address] Dr. Francesca Ortiz EO # 0.1 103/ul Normal 0.0-0.7 [facility] Comment on above: Performed By: #### C BC #### [facility] [address] [place] [address] Dr. Francesca Ortiz Eosinophils/100 WBC (Bld) 1.8 % Normal 0.9-7.0 [facility] Comment on above: Performed By: #### C BC #### [facility] [address] [place] [address] Dr. Francesca Ortiz Erythrocyte distribution width (RBC) [Ratio] 13.9 % Normal 11.0-15.0 [facility] Comment on above: Performed By: #### C BC #### [facility] [address] [place] [address] Dr. Francesca Ortiz Hematocrit (Bld) [Volume fraction] 36.8 % Normal 36.0-48.0 [facility] Comment on above: Performed By: #### C BC #### [facility] [address] [place] [address] Dr. Francesca Ortiz Hemoglobin (Bld) [Mass/Vol] 11.7 g/dL Critically low 12.0-16.0 [facility] Comment on above: Performed By: #### C BC #### [facility] [address] [place] [address] Dr. Francesca Ortiz IG # 0.01 10e3/ul Normal 0.00-0.03 [facility] Comment on above: Performed By: #### C BC #### [facility] [address] [place] [address] Dr. Francesca Ortiz IG % 0.2 % Normal 0.0-0.5 [facility] Comment on above: Performed By: #### C BC #### [facility] [address] [place] [address] Dr. Francesca Ortiz LYMPH # 1.6 103/ul Normal 1.2-3.8 [facility] Comment on above: Performed By: #### C BC #### [facility] [address] [place] [address] Dr. Francesca Ortiz Lymphocytes/100 WBC (Bld) 31.5 % Normal 20.5-60.0 [facility] Comment on above: Performed By: #### C BC #### [facility] [address] [place] [address] Dr. Francesca Ortiz MANUAL DIFF REQ NO Normal [facility] Comment on above: Performed By: #### C BC #### [facility] [address] [place] [address] Dr. Francesca Ortiz MCH (RBC) [Entitic mass] 30.0 pg Normal 26.7-34.0 [facility] Comment on above: Performed By: #### C BC #### [facility] [address] [place] [address] Dr. Francesca Ortiz MCHC (RBC) [Mass/Vol] 31.8 g/dL Normal 29.9-35.2 [facility] Comment on above: Performed By: #### C BC #### [facility] [address] [place] [address] Dr. Francesca Ortiz MCV (RBC) [Entitic vol] 94.4 fL Normal 81.0-99.0 [facility] Comment on above: Performed By: #### C BC #### [facility] [address] [place] [address] Dr. Francesca Ortiz MONO # 0.6 103/ul Normal 0.3-0.8 [facility] Comment on above: Performed By: #### C BC #### [facility] [address] [place] [address] Dr. Francesca Ortiz Monocytes/100 WBC (Bld) 11.0 % Normal 1.7-12.0 [facility] Comment on above: Performed By: #### C BC #### [facility] [address] [place] [address] Dr. Francesca Ortiz NEUT # 2.8 103/ul Normal 1.4-6.5 [facility] Comment on above: Performed By: #### C BC #### [facility] [address] [place] [address] Dr. Francesca Ortiz Neutrophils/100 WBC (Bld) 55.1 % Normal 43.0-75.0 [facility] Comment on above: Performed By: #### C BC #### [facility] [address] [place] [address] Dr. Francesca Ortiz Platelet mean volume (Bld) [Entitic vol] 11.0 fL Normal 9.5-13.5 [facility] Comment on above: Performed By: #### C BC #### [facility] [address] [address] [address] Francesca Ortiz PLT 136 103/ul Critically low 150-450 [facility] Comment on above: Performed By: #### C BC #### [facility] [address] [address] [address] Francesca Ortiz RBC 3.90 106/ul Critically low 4.20-5.40 [facility] Comment on above: Performed By: #### C BC #### [facility] [address] [address] [address] Francesca Ortiz WBC 5.1 103/ul Normal 4.0-11.0 [facility] Comment on above: Performed By: #### C BC #### [facility] [address] [address] [address] ABD/PELV W CONon [...] CHEN ZAMORANO Date: 2022-05-10 15:30 Normal [facility] PROF CHEM 8 (BAS METB)on Anion gap [Moles/Vol] 9.9 mmol/L Normal [facility] Comment on above: Performed By: #### B MP #### [facility] [address] [place] [address] Dr. Francesca Ortiz Calcium [Mass/Vol] 9.5 mg/dL Normal 8.5-10.1 [facility] Comment on above: Performed By: #### B MP #### [facility] [address] [address] [address] Francesca Ortiz Chloride [Moles/Vol] 104 mmol/L Normal 98-107 [facility] Comment on above: Performed By: #### B MP #### [facility] [address] [address] [address] Francesca Ortiz CO2 [Moles/Vol] 27.2 mmol/L Normal 21.0-32.0 [facility] Comment on above: Performed By: #### B MP #### [facility] [address] [address] [address] Francesca Ortiz Creatinine [Mass/Vol] 0.88 mg/dL Normal 0.55-1.02 [facility] Comment on above: Performed By: #### B MP #### [facility] [address] [address] [address] Francesca Ortiz EGFR-AF ECUADOREAN >60 Normal >=60 [facility] Comment on above: Performed By: #### B MP #### [facility] [address] [address] [address] Francesca Ortiz EGFR-NON AF ECUADOREAN >60 Normal >=60 [facility] Comment on above: Performed By: #### B MP #### [facility] [address] [address] [address] Francesca Ortiz Glucose [Mass/Vol] 111 mg/dL Critically high 74-106 [facility] Comment on above: Performed By: #### B MP #### [facility] [address] [address] [address] Francesca Ortiz Potassium [Moles/Vol] 4.1 mmol/L Normal 3.5-5.1 [facility] Comment on above: Performed By: #### B MP #### [facility] [address] [address] [address] Francesca Ortiz Sodium [Moles/Vol] 137 mmol/L Normal 136-145 [facility] Comment on above: Performed By: #### B MP #### [facility] [address] [address] [address] Francesca Ortiz Urea nitrogen [Mass/Vol] 17.0 mg/dL Normal 7.0-18.0 [facility] Comment on above: Performed By: #### B MP #### [facility] [address] [address] [address] Francesca Ortiz Urea nitrogen/Creatinine [Mass ratio] 19.3 mg/mg Normal [facility] Comment on above: Performed By: #### B MP #### [facility] [address] [address] [address] Francesca Ortiz GLUCOSE (POC DEVICE)on 11-14 GLUCOSE, POINT OF CARE [facility] Interpretation and review of laboratory results Abnormal [facility] [id number] [facility] HEMOGLOBIN & HEMATOCRITon Hematocrit (Bld) [Volume fraction] 34.9 % Low 36.0 - 48.0 % [facility] Hemoglobin (Bld) [Mass/Vol] 11.2 g/dL Low [facility] Interpretation and review of laboratory results Abnormal [facility] NOVEL CORONAVIRUS LAB 1 - NA SOPHARYNGEALon 11-14-2021 NARRATIVE -1 This test was performed using isothermal GIO and has been approved as Emergency Use Authorization (EUA) for the qualitative detection [id number] nucleic acid. [facility] SARS-CoV-2 (COVID-19) RNA GIO+probe Ql (Unsp spec) Not detected NOT DETECTED [facility] Comment on above: Negative results do not [...] critically ill or clinically deteriorating. [facility] PROTIME-INRon 11-14-2021 INR Coag (PPP) [Relative time] 1.15 {INR} High [facility] Comment on above: 2.0-3.0 THERAPEUTIC RANGE 2.5-3.5 MECHANICAL VALVE RANGE Interpretation and review of laboratory results Abnormal [facility] PT Coag (PPP) [Time] 14.9 s High [facility] TYPE AND SCREEN - POSSIBLE T RANSFUSIONon 11-14-2021 ABO and Rh group Nom (Bld ) Positive [facility] ARM BAND NUMBER [id number] [facility] Blood group antibody screen Ql Negative [facility] EXPIRATION DATE 11/17/2021,8351 [facility] XR PELVIS AP ONLYon 11-14-20 21 [...] IMPRESSION IMPRESSION: Routine postoperative changes. [facility] Radiology Study observation (narrative) [facility] XR PELVIS AP ONLYOrdered By: Mohini Ramirez on 11-14-2021 [facility] Work Phone: Complete Blood Counton 11-07 Erythrocyte distribution width (RBC) [Ratio] 17.0 % High 11.0-15.0 [facility] Comment on above: Performed By: #### C BC #### [facility] [address] [place], [place] [id number] Hematocrit (Bld) [Volume fraction] 37.3 % Normal 35.0-47.0 [facility] Comment on above: Performed By: #### C BC #### [facility] [address] [place], [place] [id number] Hemoglobin (Bld) [Mass/Vol] 11.6 g/dL Normal 11.6-15.5 [facility] Presentation Comment on above: Performed By: #### C BC #### [facility] [address] [place], [place] [id number] MCH (RBC) [Entitic mass] 28.6 pg Normal 27.0-33.0 [facility] Presentation Comment on above: Performed By: #### C BC #### [facility] [address] [place], [place] [id number] MCHC (RBC) [Mass/Vol] 31.1 g/dL Low 32.0-36.0 [facility] Comment on above: Performed By: #### C BC #### [facility] [address] [place], [place] [id number] MCV (RBC) [Entitic vol] 92 fL Normal 80-100 [facility] Presentation Comment on above: Performed By: #### C BC #### [facility] [address] [place], [place] [id number] Platelet mean volume (Bld) [Entitic vol] 11.10 fL Normal 7.50-12.50 [facility] Manager Presentation Comment on above: Performed By: #### C BC #### [facility] [address] [place], [place] [id number] Platelets (Bld) [#/Vol] 155 10*3/uL Normal 140-400 [facility] Specialist Comment on above: Performed By: #### C BC #### [facility] [address] [place], [place] [id number] RBC (Bld) [#/Vol] 4.06 10*6/uL Normal 3.90-5.20 [facility] Specialist Comment on above: Performed By: #### C BC #### [facility] [address] [place], [place] [id number] RDW-SD 57.8 fL High 37.0-50.0 [facility] Comment on above: Performed By: #### C BC #### [facility] [address] [place], [place] [id number] WBC (Bld) [#/Vol] 5.6 10*3/uL Normal 3.8-11.0 [facility] Comment on above: Performed By: #### C BC #### [facility] [address] [place], [place] [id number] Vital Signs Date Time Vital Sign Value Performing Clinician Facility 12-12-2023 15:42-0500 Body height 157.5 cm Jeyson Lew MD Work Phone: [facility] 12-12-2023 15:42-0500 Body mass index (BMI) [Ratio] 33.11 kg/m2 Jeyson Lew MD Work Phone: [facility] 12-12-2023 15:42-0500 Body weight 82.1 kg Jeyson Lew MD Work Phone: [facility] 10-08-2023 13:00-0500 Body height 157.48 cm Pb [facility] Other [facility] Other 10-08-2023 13:00-0500 Body mass index (BMI) [Ratio] 32.55 kg/m2 Pb [facility] Other [facility] Other 10-08-2023 13:00-0500 Body weight 80.74 kg Pb [facility] Other [facility] Other 10-08-2023 13:00-0500 Diastolic blood pressure 67 mm[Hg] Pb [facility] Other [facility] Other 10-08-2023 13:00-0500 SaO2% (BldA) [Mass fraction] 95 % Pb [facility] Other [facility] Other 10-08-2023 13:00-0500 Systolic blood pressure 124 mm[Hg] Pb [facility] Other [facility] Other 11-27-2022 15:05-0500 Body height 157.5 cm Doug Sahni WHEELAGE CLERK-TRIMMING CUTTER MACHINE Work Phone: [employer] 11-27-2022 15:05-0500 Body mass index (BMI) [Ratio] 34.39 kg/m2 Doug Sahni APRN-TRIMMING CUTTER MACHINE Work Phone: [facility] [facility] [employer] [facility] 11-27-2022 15:05-0500 Body temperature 97 [degF] Doug Sahni WHEELAGE CLERK-TRIMMING CUTTER MACHINE Work Phone: [facility] [facility] [employer] [facility] 11-27-2022 15:05-0500 Body weight 85.28 kg Doug Sahni APRN-TRIMMING CUTTER MACHINE Work Phone: [facility] [facility] [employer] [facility] 08-08-2022 08:48-0400 Body height 157.5 cm Serafin Calles MD Work Phone: [employer] [facility] 08-08-2022 08:48-0400 Body mass index (BMI) [Ratio] 34.56 kg/m2 Serafin Calles MD Work Phone: [facility] [facility] [employer] [facility] 08-08-2022 08:48-0400 Body temperature 98.49 [degF] Serafin Calles MD Work Phone: [employer] [facility] [employer] [facility] 08-08-2022 08:48-0400 Body weight 85.7 kg Serafin Calles MD Work Phone: [employer] [facility] 08-01-2022 11:19-0400 Body height 157.5 cm Jeyson Lew MD Work Phone: [employer] [facility] 08-01-2022 11:19-0400 Body mass index (BMI) [Ratio] 34.57 kg/m2 Jeyson Lew MD Work Phone: [employer] [facility] 08-01-2022 11:19-0400 Body weight 85.73 kg [facility] Lew [facility] 04-06-2022 09:43-0400 Body height 157.5 cm Jeyson Lew MD Work Phone: [employer] [facility] 04-06-2022 09:43-0400 Body mass index (BMI) [Ratio] 34.57 kg/m2 Jeyson Lew MD Work Phone: [employer] [facility] 04-06-2022 09:43-0400 Body weight 85.73 kg Jeyson Lew MD Work Phone: [facility] 12-07-2021 14:22-0500 Body height 157.5 cm Doug Sahni WHEELAGE CLERK-TRIMMING CUTTER MACHINE Work Phone: [employer] [facility] 12-07-2021 14:22-0500 Body mass index (BMI) [Ratio] 34.57 kg/m2 Doug Sahni WHEELAGE CLERK-TRIMMING CUTTER MACHINE Work Phone: [employer] [facility] 12-07-2021 14:22-0500 Body temperature 98.2 [degF] Doug Sahni WHEELAGE CLERK-TRIMMING CUTTER MACHINE Work Phone: [facility] 12-07-2021 14:22-0500 Body weight 85.73 kg Doug Sahni WHEELAGE CLERK-TRIMMING CUTTER MACHINE Work Phone: [facility] 11-14-2021 18:30-0500 Diastolic blood pressure 68 mm[Hg] Jeyson Lew MD Work Phone: [facility] 11-14-2021 18:30-0500 Heart rate 73 /min Jeyson Lew MD Work Phone: [facility] 11-14-2021 18:30-0500 Respiratory rate 20 /min Jeyson Lew MD Work Phone: [employer] [facility] 11-14-2021 18:30-0500 SaO2% (BldA) [Mass fraction] 96 % Jeyson Lew MD Work Phone: [employer] [facility] 11-14-2021 18:30-0500 Systolic blood pressure 154 mm[Hg] Jeyson Lew MD Work Phone: [employer] [facility] 11-14-2021 12:44-0500 Body temperature 98.2 [degF] Jeyson Lew MD Work Phone: [employer] [facility] 11-14-2021 08:23-0500 Body height 157.5 cm Jeyson Lew MD Work Phone: [employer] [facility] 11-14-2021 08:23-0500 Body mass index (BMI) [Ratio] 34.39 kg/m2 Jeyson Lew MD Work Phone: [employer] [facility] 11-14-2021 08:23-0500 Body weight 85.28 kg Jeyson Lew MD Work Phone: [employer] 10-03-2021 14:00-0400 Body height 157.48 cm Pb [facility] Other [facility] Other 10-03-2021 14:00-0400 Body mass index (BMI) [Ratio] 35.3 kg/m2 Pb [facility] Other [facility] Other 10-03-2021 14:00-0400 Body temperature 97.7 [degF] Pb [facility] Other 10-03-2021 14:00-0400 Body weight 87.54 kg Pb [facility] Other [facility] Other 10-03-2021 14:00-0400 Diastolic blood pressure 71 mm[Hg] Pb [facility] Other [facility] Other 10-03-2021 14:00-0400 SaO2% (BldA) [Mass fraction] 98 % Pb Daniele Other [employer] Other 10-03-2021 14:00-0400 Systolic blood pressure 146 mm[Hg] Pb [facility] Other [employer] Other Encounters Encounter Date Encounter Type Care Provider Facility Start: 03-11-2024 End: 03-11-2024 ambulatory TYSHAWN Rodriguez HICKMAN Not Available Start: 01-20-2024 End: 01-20-2024 ambulatory TYSHAWN B HICKMAN Not Available Start: 12-30-2023 End: 12-30-2023 ambulatory TYSHAWN B HICKMAN Not Available Start: 12-19-2023 End: 12-19-2023 ambulatory TYSHAWN B HICKMAN Not Available Start: 12-12-2023 ambulatory [facility] Start: 12-12-2023 ambulatory [facility] Start: 12-12-2023 End: 12-12-2023 Office outpatient visit 15 minutes Jeyson Lew MD Work Phone: [facility] Comment on above: Primary osteoarthrit is of left hip (Primary Dx) Start: 12-12-2023 End: 12-12-2023 Subsequent hospital visit by physician Jeyson Lew MD Work Phone: [facility] Start: 12-11-2023 End: 12-11-2023 ambulatory JOSE CRUZ H TIMMIS Not Available Start: 12-05-2023 End: 12-06-2023 ambulatory Jose Cruz H Timmis Facility:[facility] Start: 12-05-2023 End: 12-05-2023 Patient encounter procedure Jose Cruz H Timmis [facility] Start: 11-04-2023 End: 11-04-2023 ambulatory JOSE CRUZ H TIMMIS Not Available Start: 10-08-2023 Office outpatient vi sit 25 minutes Pb [facility] Start: 10-08-2023 End: 10-08-2023 ambulatory NAYANA Tyshawn Hickman Work Phone: [facility] Work Phone: Start: 10-08-2023 End: 10-08-2023 Patient encounter procedure II Tyshawn Hickman Work Phone: [facility] Work Phone: Start: 02-28-2023 End: 03-01-[address] TYSHAWN HICKMAN Facility:[facility] Start: 01-03-2023 ambulatory JEYSON LEW [facility] Start: 11-27-2022 End: 11-27-2022 Office outpatient visit 15 minutes Doug Sahni APRN-TRIMMING CUTTER MACHINE Work Phone: [facility] Comment on above: Primary osteoarthrit is of one hip, left (Primary Dx) Start: 11-27-2022 End: 11-27-2022 Subsequent hospital visit by physician Doug Sahni APRN-TRIMMING CUTTER MACHINE Work Phone: [facility] Start: 10-03-2022 End: 10-03-[address] ROLA IVORY Facility:[facility] Start: 09-17-2022 End: 09-17-2022 ambulatory ALEXANDRA DOE . Facility:[facility] Start: 08-08-2022 End: 08-08-2022 Office outpatient new 30 minutes Serafin Calles MD Work Phone: [facility] Comment on above: Trigger finger of le ft hand, unspecified finger (Primary Dx) Start: 08-01-2022 End: 08-01-2022 Office outpatient visit 15 minutes Jeyson Lew MD Work Phone: [facility] Comment on above: Hx of total hip arth roplasty, left (Primary Dx); Pain due to left hip joint prosthesis, sequela Start: 08-01-2022 End: 08-01-2022 Subsequent hospital visit by physician Jeyson Lew MD Work Phone: [facility] Start: 06-07-2022 End: 06-08-[address] TYSHAWN HICKMAN Facility:[facility] Start: 05-28-2022 End: 05-29-[address] TYSHAWN HICKMAN Facility:[facility] Start: 05-26-2022 End: 05-26-[address] TYSHAWN HICKMAN Facility:[facility] Start: 05-10-2022 End: 05-10-[address] APRIL LÓPEZ . Facility:[facility] Start: 04-06-2022 End: 04-06-2022 Office outpatient visit 15 minutes Jeyson Lew MD Work Phone: [facility] Comment on above: Hx of total hip arth roplasty, left (Primary Dx) Start: 04-06-2022 End: 04-06-2022 Subsequent hospital visit by physician Jeyson Lew MD Work Phone: [facility] Start: 01-10-2022 End: 01-19-2022 Postop follow up visit related to original px Doug Sahni WHEELAGE CLERK-TRIMMING CUTTER MACHINE Work Phone: [facility] Comment on above: Hx of total hip arth roplasty, left (Primary Dx) Start: 12-07-2021 End: 12-07-2021 Postop follow up visit related to original px Jeyson Lew MD Work Phone: [facility] Comment on above: Hx of total hip arth roplasty, left (Primary Dx) Start: 12-07-2021 End: 12-07-2021 Subsequent hospital visit by physician Doug Sahni WHEELAGE CLERK-TRIMMING CUTTER MACHINE Work Phone: [facility] Start: 11-14-2021 End: 11-14-2021 Patient encounter status Jeyson Lew MD Work Phone: [facility] Start: 11-14-2021 End: 11-14-2021 Subsequent hospital visit by physician Jeyson Lew MD Work Phone: [facility] Comment on above: Primary osteoarthrit is of left hip Start: 11-06-2021 End: 11-06-2021 Admission to establishment Santiago Deysi Ont Pat Testing [facility] Comment on above: Preop testing (Prima ry Dx) Start: 11-06-2021 End: 11-06-2021 Patient encounter status Santiago Deysi Ont Pat Testing [facility] Start: 10-03-2021 End: 10-03-2021 ambulatory Pb [facility] Other [employer] Other Start: 10-03-2021 Office outpatient vi sit 25 minutes Pb [facility] Procedures Date Procedure Procedure Detail Performing Clinician Start: 08-08-2022 Injection 1 tendon sheath/ligament aponeurosis Serafin Calles MD Work Phone: Start: 11-14-2021 Blood count hematocrit Doug Sahni WHEELAGE CLERK-TRIMMING CUTTER MACHINE Work Phone: Start: 11-14-2021 Gluc bld gluc mntr d ev cleared fda spec home use Jeyson Lew MD Work Phone: Start: 11-14-2021 Radiologic examinati on pelvis 1/2 views Doug Sahni WHEELAGE CLERK-TRIMMING CUTTER MACHINE Work Phone: Start: 11-14-2021 Iadna nos amplified probe tq each organism Doug Sahni WHEELAGE CLERK-TRIMMING CUTTER MACHINE Work Phone: Start: 11-14-2021 Blood typing serologic abo Jeyson Lew MD Work Phone: Start: 11-14-2021 Prothrombin time Jeyson Lew MD Work Phone: Plan of Treatment Date Care Activity Detail Author Start: 09-17-2032 Tetanus vaccination [facility] Start: 08-03-2024 Tetanus vaccination [facility] Start: 10-09-2023 Pneumococcal vaccination PNEUM OCOCCAL VACCINE SERIES (3 - PPSV23 or PCV20) [facility] Start: 08-02-2023 COVID-19 VACCINE ( season) COVID-19 VACCINE ( season) [facility] Start: 11-14-2022 End: 11-14-2022 Patient encounter procedure 11/14/2022 Office Visit Orthopaedics Doug Sahni, WHEELAGE CLERK-TRIMMING CUTTER MACHINE [address] [place] [address] [facility] Start: 10-10-2022 End: 10-10-2022 Patient encounter procedure 10/10/2022 Office Visit Orthopaedics Serafin Calles MD [address] [place] [address] [facility] Start: 10-04-2022 Screening for malign ant neoplasm of colon COLORECTAL CANCER SCREENING DISCUSSION [facility] Start: 08-31-2022 Potassium [Moles/vol ume] in Serum or Plasma POTASSIUM [facility] Start: 08-08-2022 End: 08-08-2022 Patient encounter procedure 08/08/2022 Office Visit Orthopaedics Serafin Calles MD [address] [place] [address] [facility] Start: 08-02-2022 Influenza vaccination INFLUENZA VACC INE (#1) [facility] Start: 03-15-2022 End: 03-15-2022 Patient encounter procedure 03/15/2022 Office Visit Orthopaedics Jeyson Lew MD [address] [place] [id number] [facility] Start: 12-28-2021 End: 12-28-2021 Patient encounter procedure [facility] Start: 12-07-2021 End: 12-07-2021 Patient encounter procedure 12/07/2021 Office Visit Orthopaedics Doug Sahni, WHEELAGE CLERK-TRIMMING CUTTER MACHINE [address] [place] [address] [facility] Start: 11-14-2021 End: 11-14-2021 Admission to same day surgery center 11/14/2021 Surgery Multispecialty Jeyson Lew MD [address] [place] [id number] ARTHROPLASTY HIP TOTAL AL - LEFT [facility] Comment on above: ARTHROPLASTY HIP TOT AL AL - LEFT Start: 11-14-2021 End: 11-14-2021 Arthrp acetblr/prox fem prostc agrft/algrft ARTHROPLASTY HIP TOTAL LATERAL APPROACH Primary osteoarthritis of left hip 11/14/2021 10:00 AM EST [facility] Start: 11-14-2021 Subsequent hospital visit by physician 11/14/2021 Hospital Encounter Multispecialty Jeyson Lew MD [address] [id number] Primary osteoarthritis of left hip [facility] Comment on above: Primary osteoarthrit is of left hip Start: 09-16-2021 COVID-19 VACCINE (3 - Booster for Moderna series) COVID-19 VACCINE (3 - Booster for Moderna series) [facility] Start: 08-17-2021 COVID-19 VACCINE (3 - Booster for Moderna series) COVID-19 VACCINE (3 - Booster for Moderna series) [facility] Start: 08-02-2021 Influenza vaccination INFLUENZA VACC INE (#1) [facility] Start: 05-12-2021 COVID-19 VACCINE (3 - Booster for Moderna series) COVID-19 VACCINE (3 - Booster for Moderna series) [facility] Start: 10-27-2020 Screening for malign ant neoplasm of breast MAMMOGRAM SCREENING DISCUSSION [facility] Start: 10-09-2019 Pneumococcal vaccination PNEUM OCOCCAL VACCINE SERIES (#3) [facility] Start: 2017 Pneumococcal vaccination [facility] Start: 2002 Zoster vaccine hzv l bolivar for subcutaneous use ZOSTER (SHINGLES) VACCINE (1 of 2) [facility] Start: 1997 Colonoscopy COLORECTAL CAN CER SCREENING DISCUSSION [facility] Start: 1997 Screening for malign ant neoplasm of colon COLORECTAL CANCER SCREENING DISCUSSION [facility] Start: 1992 Fasting lipid profile LIPID SCREENIN G [facility] Start: 1992 Lipid panel LIPID SCREENING [facility] Start: 1992 Screening for malign ant neoplasm of breast MAMMOGRAM SCREENING DISCUSSION [facility] Start: 1992 Screening mammography MAMMOGRA M SCREENING DISCUSSION [facility] Start: 1973 Screening for malign ant neoplasm of cervix CERVICAL CANCER SCREENING DISCUSSION [facility] Start: 1971 Third diphtheria, tetanus and acellular pertussis (DTaP) vaccination TDAP (ADULT) [facility] Start: 1970 Tetanus vaccination [facility] Start: 1952 Hepatitis C antibody , confirmatory test HEPATITIS C VIRUS SCREENING [facility] Start: 1952 Hepatitis C screening HEPATITI S C VIRUS SCREENING [facility] Start: 1950 Screening for osteoporosis DEXA SCAN DISCUSSION [facility] End: 11-14-2021 Radiography of hip [facility] Work Phone: Comment on above: One Time for 1 Occur rences starting 11/14/2021 until 11/14/2021 Skeletal X-ray of pe lvis and hip XR HIP WITH PELVIS LEFT Imaging Routine Hx of total hip arthroplasty, left 12/07/2021 1:[facility] PM [facility] Skeletal X-ray of pe lvis and hip XR HIP WITH PELVIS LEFT Imaging Routine Hx of total hip arthroplasty, left 01/16/2022 9:52 AM EST [facility] SURGICAL PATHOLOGY REQUEST SURGICAL PATHOLOGY REQUEST Surg Path Routine Primary osteoarthritis of left hip Release Upon Ordering for 1 Occurrences starting 11/14/2021 [facility] Comment on above: Release Upon Orderin g for 1 Occurrences starting 11/14/2021 XR Pelvis and Hip - left Views XR HIP WITH PELVIS LEFT Imaging Routine Hx of total hip arthroplasty, left 04/06/2022 8:24 AM EDT [facility] Work Phone: XR Pelvis and Hip - left Views XR HIP WITH PELVIS LEFT Imaging Routine Hx of total hip arthroplasty, left 08/01/2022 10:18 AM EDT [facility] XR Pelvis and Hip - left Views XR HIP WITH PELVIS LEFT Imaging Routine Hx of total hip arthroplasty, left 11/27/2022 2:46 PM EST [facility] [facility] XR Pelvis and Hip - left Views XR HIP WITH PELVIS LEFT Imaging Routine Primary osteoarthritis of left hip 12/12/2023 3:34 PM EST [facility] Immunizations Immunization Date Immunization Notes Care Provider Cherelle santo 09-06-2021 influenza virus vaccine, unspecified formulation Jeyson eLw MD Work Phone: [facility] 03-17-2021 COVID-19 mRNA-1273 (Moderna) II Tyshawn Hickman Work Phone: [facility] 02-17-2021 COVID-19 mRNA-1273 (Moderna) II Tyshawn Hickman Work Phone: [facility] 08-31-2020 influenza virus vaccine, unspecified formulation Santiago [facility] Payers Date Payer Category Payer Medicare [id number] 2021 Self-pay [id number] 2021 Medicare MEDICARE MEDICAR E A AND B [id number] 2021-Present [address] [place] [address] [id number] 2021 Medicare [id number]. [id number] 2019 Unknown GENERIC PAYOR ME DICARE SUPPLEMENT [id number] 2019-Present [phone] [address] [place] [address] [id number] [id number]. [id number] 2019 Unknown GENERIC PAYOR ME DICARE SUPPLEMENT [id number] 2019-Present [phone] [address] [place] [address] [id number]. [id number] 1959 Medicare [id number] 2.16.840.1.232288.19 1959 Medicare [id number] 1959 Unknown [id number] 2.16.840.1.647782.19 1959 Unknown [id number] 1952 Unknown [id number] 2.16.840.1.898838.3.579.2.593 1952 Unknown [id number] 2.16.840.1.188582.3.579.2.593 1952 Unknown [id number] 2.16.840.1.911897.3.579.2.593 1952 Unknown [id number] 2.16.840.1.103512.3.579.2.593 1952 Unknown [id number] 2.16.840.1.203727.3.579.2.593 1952 Unknown [id number] 2.16.840.1.667630.3.579.2.593 1952 Unknown [id number] 2.16.840.1.728266.3.579.2.593 1952 Unknown [id number] 2.16.840.1.417077.3.579.2.727 1952 Unknown [id number] 2.16.840.1.867079.3.579.2.983 1952 Unknown [id number] 2.16.840.1.679569.3.579.2.983 1952 Unknown [id number] 2.16.840.1.450900.3.579.2.983 1952 Unknown [id number] 2.16.840.1.106580.3.579.2.983 1952 Unknown [id number] 2.16.840.1.975041.3.579.2.1259 1952 Unknown [id number] 2.16.840.1.446893.3.579.2.1259 1952 Unknown [id number] 2.16.840.1.211794.3.579.2.1259 1952 Unknown [id number] 2.16.840.1.974302.3.579.2.1259 1952 Unknown [id number] 2.16.840.1.584937.3.579.2.1259 1952 Unknown [id number] 2.16.840.1.804169.3.579.2.1259 1952 Unknown [id number] 2.16.840.1.178456.3.579.2.1259 Unknown [place] [facility]/ [id number] Unknown [id number] 2.16.840.1.496406.3.579.2.531 Social History Date Type Detail Facility Start: 08-10-2021 End: 11-27-2022 Tobacco smoking status NHIS Ex-smoker [facility] Start: 08-10-2021 End: 11-27-2022 Tobacco use and exposure Smokeless tobacco non-user [facility] Start: 11-02-2021 End: 12-12-2023 Alcohol intake Lifetime non-drinker (finding) [facility] Start: 08-10-2021 History SDOH Alcohol Frequency 1 [facility] Start: 08-10-2021 End: 11-27-2022 Tobacco Comment Quit 1999 [facility] Start: 1950 Sex Assigned At Not on file A [facility] Exposure to SARS-CoV -2 (event) Not sure [facility] Start: 12-12-2023 Sex Assigned At F [facility] History of tobacco use Current smoker [facility] Start: 1950 Sex Assigned At Female F [facility] Tobacco smoking status No Smokin g Status Entered [facility] Start: 12-12-2023 History of Social function [facility] Medical Equipment Procedure Code Equipment Code Equipment Original Text Equipment Identifier Dates [place] Gripton Acetabular Shell Sector 54mm Od [id number] Start: 11-14-2021 Altrx Polyethyle ne Acetabular Liner Neutral 36mm Id 54 Od [id number] Start: 11-14-2021 Femoral Stem Taper Actis Duofix Hip Prosthesis Cementless Size 6 Std Collar [id number] Start: 11-14-2021 Biolox Delta Cer amic Femoral Head +1.5 36mm Gracie 11/14 Taper [id number] Start: 11-14-2021 Suture Rayne, Biocompositie Corkscrew Ft, Vented With 1.3mm White/Blue And White/Black Suture Tape [id number] Start: 11-14-2021 Suture Rayne, Biocompositive Swivelock C, Closed Eyelet With #2 Fiberwire, 4.75 X 19.1mm [id number] Start: 11-14-2021 Suture Rayne, Biocompositive Swivelock C, Closed Eyelet With #2 [...] 12/12/2023 3:42 PM Patient: Siria Petty MR#: [id number] : 1950 Age: 73 y.o. Referring Physician: [...] Take 1 tablet by mouth daily. nystatin-triamcinolone 871252-3.1 UNIT/GM-% Ointment as needed. omeprazole 20 MG [...] 12/12/2023 3:42 PM Patient: Siria Petty MR#: [id number] : 1950 Age: 73 y.o. Referring Physician: Self, Self Insurance: Payor: MEDICARE [employer] HMO / [facility] / Product Type: *No Product type* [...] Take 1 tablet by mouth daily. nystatin-triamcinolone 698446-9.1 UNIT/GM-% Ointment as needed. omeprazole 20 MG [...] Allergies. documented in this encounter [facility] 10-08-2023 Evaluation note Encounter Date Diagnosis Assessment [...] - G25.81) Not currently an active problem Pixability Other 12-27-2022 History of Present illness Narrative* Chrystal Geovanny - 11/27/2022 3:20 PM EST Ortho Nurse - Established Patient Intake Room#: 5 Date: 11/27/2022 3:07 PM Patient: Siria Petty MR#: [id number] : 1950 Age: 72 y.o. 1yr L [...] Take 1 tablet by mouth daily. nystatin-triamcinolone 867477-7.1 UNIT/GM-% Ointment as needed. omeprazole 20 MG [...] by mouth daily., Disp: , Rfl: nystatin-triamcinolone 155427-3.1 UNIT/GM-% Ointment, as needed. , Disp: , [...] has No Known Allergies. * Doug Sahni APRN-TRIMMING CUTTER MACHINE - 11/27/2022 3:20 PM EST HPI: Patient [...] 11/27/2022 3:07 PM Patient: Siria Petty MR#: [id number] : 1950 Age: 72 y.o. 1yr L [...] Take 1 tablet by mouth daily. nystatin-triamcinolone 618204-5.1 UNIT/GM-% Ointment as needed. omeprazole 20 MG [...] by mouth daily., Disp: , Rfl: nystatin-triamcinolone 169654-4.1 UNIT/GM-% Ointment, as needed. , Disp: , [...] has No Known Allergies. documented in this [facility]09-07-2022 History of Present illness Narrative* Heather [...] The patient was prepped with alcohol. * eSrafin Calles MD - 08/08/2022 9:15 AM EDT [...] by mouth daily., Disp: , Rfl: nystatin-triamcinolone 634739-2.1 UNIT/GM-% Ointment, as needed. , Disp: , [...] in about [address] [facility]08-31-2022 History of Present illness Narrative* Jaswant Baldwin LPN - 08/01/2022 10:30 AM EDT Ortho Nurse - Established Patient Intake Room#: 3 Left TILA 11-14-21, had a fall on 05-10-22 went to [facility] and was told everything looked good and was given pain medication which she is done with. Before fall she states she was doing great with occasional pain of 2, since her fall the pain radiates down to her foot and is a 10 Date: 08/01/2022 11:26 AM Patient: Siria Petty MR#: [id number] : 1950 Age: 72 y.o. Referring Physician: [...] Take 1 tablet by mouth daily. nystatin-triamcinolone 973297-7.1 UNIT/GM-% Ointment as needed. acetaminophen 325 MG [...] by mouth daily., Disp: , Rfl: nystatin-triamcinolone 616229-5.1 UNIT/GM-% Ointment, as needed. , Disp: , [...] a fall on 05/10/21, went to the [facility] with reported unremarkable work up. She states [...] had a fall on 05-10-22 went to [facility] and was told everything looked good and was given pain medication which she is done with. Before fall she states she was doing great with occasional pain of 2, since her fall the pain radiates down to her foot and is a 10 Date: 08/01/2022 11:26 AM Patient: Siria Petty MR#: [id number] : 1950 Age: 72 y.o. Referring Physician: [...] Take 1 tablet by mouth daily. nystatin-triamcinolone 194378-9.1 UNIT/GM-% Ointment as needed. acetaminophen 325 MG [...] by mouth daily., Disp: , Rfl: nystatin-triamcinolone 723898-6.1 UNIT/GM-% Ointment, as needed. , Disp: , [...] Known Allergies. [facility] History of Present illness Narrative* Jaswant Baldwin LPN - 04/06/2022 9:10 AM EDT Ortho Nurse - Established Patient Intake Room#: 1 4+ month left TILA A/L, some pain of 2, doing great Date: 04/06/2022 9:49 AM Patient: Siria Petty MR#: [id number] : 1950 Age: 71 y.o. Referring Physician: [...] Take 1 tablet by mouth daily. nystatin-triamcinolone 523897-2.1 UNIT/GM-% Ointment as needed. acetaminophen 325 MG [...] by mouth daily., Disp: , Rfl: nystatin-triamcinolone 370875-0.1 UNIT/GM-% Ointment, as needed. , Disp: , [...] 04/06/2022 9:49 AM Patient: Siria Petty MR#: [id number] : 1950 Age: 71 y.o. Referring Physician: [...] Take 1 tablet by mouth daily. nystatin-triamcinolone 688566-0.1 UNIT/GM-% Ointment as needed. acetaminophen 325 MG [...] by mouth daily., Disp: , Rfl: nystatin-triamcinolone 874266-3.1 UNIT/GM-% Ointment, as needed. , Disp: , [...] has No Known Allergies. documented in this [facility]02-09-2022 History of Present illness Narrative* Doug Sahni APRN-TRIMMING CUTTER MACHINE - 01/10/2022 2:20 PM EST SUBJECTIVE: Siria [...] scheduled 4-month appointment or sooner as necessary. (DOC:[id number]) I have reviewed the findings of the clinical administrative support associate and agree with their assessment. EDY Parra No notes on file documented in this [facility]01-06-2022 History of Present illness Narrative* EDY [...] visit. All pertinant portions of the clinical administrative support associate documentation was reviewed. EDY Parra I have reviewed the findings of the clinical administrative support associate and agree with their assessment. EDY Parra Ortho Nurse Established Patient Intake Room#: 4 Date: 12/07/2021 2:25 PM Patient: Siria Petty MR#: [id number] : 1950 Age: 71 y.o. 3wk S/P [...] Take 1 tablet by mouth daily. nystatin-triamcinolone 823190-8.1 UNIT/GM-% Ointment as needed. omeprazole 20 MG [...] by mouth daily., Disp: , Rfl: nystatin-triamcinolone 494254-1.1 UNIT/GM-% Ointment, as needed. , Disp: , [...] 12/07/2021 2:25 PM Patient: Siria Petty MR#: [id number] : 1950 Age: 71 y.o. 3wk S/P [...] Take 1 tablet by mouth daily. nystatin-triamcinolone 417819-0.1 UNIT/GM-% Ointment as needed. omeprazole 20 MG [...] by mouth daily., Disp: , Rfl: nystatin-triamcinolone 422468-2.1 UNIT/GM-% Ointment, as needed. , Disp: , [...] has No Known Allergies. documented in this [facility]12-14-2021 Nurse Note* Yadira Salas RN - [...] - 11/14/2021 4:30 PM EST Doug Sahni TRIMMING CUTTER MACHINE notified of Hgb Hct results,no further orders. * Yadira Salas RN - 11/14/2021 3:30 PM EST Took 50% of regular tray w/o nausea. * Nicole Laurent RN - 11/14/2021 12:47 PM EST Patient transferred to PACU via bed with this nurse and SUPPORT MANAGER. Bedside report given to ARTEMIO Quinones. * Nicole Laurent RN - 11/14/2021 11:36 AM EST OR room temp: 66.3 OR room humidity: [address] [facility]12-14-2021 History of Present illness Narrative* Trisha [...] Transfer Skill: Sit To Stand, Rehab Eval Gordon (Sit-Stand Transfers) contact guard Physical Assist/Nonphysical Assist: Sit/Stand 1 person assist Weight-Bearing Restrictions: Sit/Stand toe touch weight-bearing Assistive Device For Transfer: Sit/Stand 2 wheeled walker Gait Skills, PT Eval Level of Gordon: Gait contact guard Physical Assist/Nonphysical Assist: Gait 1 person assist Weight-Bearing Restrictions: Gait toe touch weight-bearing Assistive Device For Transfer: Gait 2 wheeled walker Gait Distance 50 feet Gait Analysis, PT Eval Gait Pattern Used swing-to gait Stair Negotiation Gordon Level: Stair Negotiation contact guard assist Physical [...] Supine to Sit, Rehab Eval Level of Gordon: Supine/Sit stand-by assist Physical Assist/Nonphysical Assist: Supine/Sit 1 person assist;verbal cues Transfer Skill: Sit to Stand, Rehab Eval Level of Gordon: Sit/Stand contact guard Physical Assist/Nonphysical Assist: Sit/Stand 1 person assist Weight-Bearing Restrictions: Sit/Stand touch down weight-bearing Assistive Device for Transfer: Sit/Stand wheeled walker Upper Body Dressing Level of Gordon independent Physical Assist/Nonphysical Assist set-up required Lower Body Dressing Level of Gordon moderate assist (50% patients effort) Physical Assist/Nonphysical Assist 1 person assist (including TONIA hose) Assistive Device model and dye person General Therapy Interventions Planned Therapy Interventions (OT Eval) ADL retraining;balance training;transfer training Clinical Impression Co-evaluation/co-treatment performed? Yes, combination of simultaneous billable and non-billable treatment Patient Instruction Pt instructed on LB dressing techniques utilizing model and dye person to rodo underwear andshorts in sitting and [...] (OT Eval) bathing equipment;dressing equipment;raised toilet seat;tub bench;model and dye person Today's Treatment Included Pt demonstrates moderate to [...] hygiene training Therapist Information License # [id number] 1. Pt will complete LB dressing min [...] 0.86 Docusate 100mg 4.00 APAP 325mg 4.00 [place] 5-325mg 1.80 Tramadol 50mg 1.35 Omeprazole 20mg 2.90 Ondansetron 4mg 4.00 Total $ 20.91 Patient Education Counseled patient on appropriate use and side effects of medications. Medications to be picked up in pharmacy Thaddeus Wallis PharmD [facility] [phone] * OSMEL Frazier - 11/14/2021 3:31 PM EST TYPESETTING MACHINE OPERATOR/TENDER met with patient and spouse. OSMEL explained that it was recommended for the patient to dischargehome with home health services for CBC lab draw on 11/16 as well as 1 week of therapy for safety precaution awareness. TYPESETTING MACHINE OPERATOR/TENDER was able to arrange services through [facility]. TYPESETTING MACHINE OPERATOR/TENDER explained they would contact her to arrange [...] Supine to Sit, Rehab Eval Level of Gordon: Supine/Sit minimum assist (75% patients effort) Physical Assist/Nonphysical Assist: Supine/Sit 1 person assist Transfer Skill: Sit To Stand, Rehab Eval Gordon (Sit-Stand Transfers) contact guard Physical Assist/Nonphysical Assist: Sit/Stand 1 person assist Weight-Bearing Restrictions: Sit/Stand toe touch weight-bearing Assistive Device For Transfer: Sit/Stand 2 wheeled walker Gait Skills, PT Eval Level of Gordon: Gait contact guard Physical Assist/Nonphysical Assist: Gait [...] weight bearing status and use of leg program support specialist. Pt performed ankle pumps and quad sets [...] given as rescue opiate. [facility]12-14-[facility] Hospital Discharge instructions* Instructions* Raina Maurice [...] pillow between legs Hip Precautions: Contact Office ([phone]) if: > Any falls or injuries > [...] [place] office is closed, you may call [phone] where you will be connected with an after hours orthopedic nurse that will be able to answer your questions. documented in this encounter[facility] HospitalQ1[facility] [id number] Miscellaneous Notes* Nursing Notes - Joni Ly RN - 11/14/2021 1:14 PM EST Discharged from PACU in stable condition at this time. Transported via cart to [facility] 6. Cart placed in lowest position. Call light within reach. Pulse ox monitor on pt with alarms set. Report radha Salas Rn. [facility] [id number] Instructions* Patient Instructions* Rocio Peña RN - 11/06/2021 7:[address] Lew's office will call you for your arrival time, 1-2 business days before your scheduled surgery. Please review your surgery checklist and bring your guide or booklet the day of surgery. Pre-Admission Testing Dept. [phone] Call if you have any changes in [...] - take the day of surgery [place] - hold according to the doctor's instructions [...] YOUR SURGERY Last Dose: Date Time nystatin-triamcinolone 811109-1.1 UNIT/GM-% Ointment NEEDED CONTINUE, but DO NOT take the morning of surgery. Last Dose: Date Time documented in this [facility]11-02-2021 Evaluation note* Encounter Date Diagnosis Assessment [...] fatigue, but may also predispose to RLS Pixability Other Evaluation + Plan note No data available for this section [facility]* Diagnosis Preop testing- Primary Preoperative examination, unspecified Primary osteoarthritis of left hip Primary localized osteoarthrosis, pelvic region and thigh [facility] Preop testing- Primary Preoperative examination, unspecified Abnormal coagulation profile Abnormal coagulation profile Encounter for preoperative screening laboratory testing for COVID-19 virus Primary osteoarthritis of left hip Primary localized osteoarthrosis, pelvic region and thigh Acute postoperative pain of left knee documented in this encounter [facility] SystemEvaluation note* Diagnosis Hx of total hip arthroplasty, left- Primary Hx of total hip arthroplasty, left- Primary [facility] Diagnosis Hx of total hip arthroplasty, left- Primary documented in this encounter [facility]* Diagnosis Hx of total hip arthroplasty, left- Primary [facility]* Diagnosis Hx of total hip arthroplasty, left- Primary Pain due to left hip joint prosthesis, sequela documented in this encounter [facility]* Diagnosis Trigger finger of left hand, unspecified finger- Primary documented in this encounter [facility]* Diagnosis Primary osteoarthritis of one hip, left- Primary [facility] SystemEvaluation noteNo assessment information availableMartin Memorial Hospital Ctr Work Phone: Evaluation note* Diagnosis Primary osteoarthritis of left hip- Primary Primary localized osteoarthrosis, pelvic region and thigh [facility] System[facility] general Narrative - Reported* Type Description Date Medical History COPD Medical History ADRIANNA Medical History diastolic CHF with preserved EF Medical History Type II diabetes diet controlled Pixability Other History of Present illness Narrative* Rashmi [...] HEARING AIDS OR ANY TROUBLE HEARING [place] DIFFICULTY SWALLOWING no DENTAL APPLIANCES OR PROBLEMS (dentures, partials, loose teeth, missing teeth, broken teeth, caps or crowns) Dentures full BETA DONNIE USE yes STEROIDS IN THE PAST 2 YEARS no HISTORY OF BLOOD TRANSFUSION/REACTION no CULTURAL OR VOODOO BELIEFS THAT WILL AFFECT CARE no DIETARY [...] verbalized understanding of instructions. [facility] instructions No data available for this section [facility] note No data available for this section [facility] HospitalReason for referral (narrative)* Consultation (Routine) - New Request Specialty Diagnoses / Procedures Referred By Arlet hall Referred To Contact Orthopaedics Diagnoses Hx of total hip arthroplasty, left Jeyson Lew MD [address] [place] [address] [phone] Serafin Calles MD [address] [place] [address] 29664 Referral ID Status Reason Start Date Expiration Date V isits Requested Visits Authorized [id number] New Request 08/01/2022 08/26/2023 1 1 * Medication Prior Authorization - Closed Specialty Diagnoses / Procedures Referred By Arlet hall Referred To Contact Jeyson Lew MD [address] [place] [address] 64488 Referral ID Status Reason Start Date Expiration Date Visits Re quested Visits Authorized [id number] Closed 1 1 * Adjunctive Therapy (Routine) - New Request Specialty Diagnoses / Procedures Referred By Arlet hall Referred To Contact Physical Therapy Diagnoses Hx of total hip arthroplasty, left Pain due to left hip joint prosthesis, sequela Jeyson Lew MD [address] [place] [address] 22808 Referral ID Status Reason Start Date Expiration Date V isits Requested Visits Authorized [id number] New Request 08/01/2022 08/26/2023 1 1 Scheduling Instructions . * Diagnostic X-Ray (Routine) - New Request Specialty Diagnoses / Procedures Referred By Contac t Referred To Contact Diagnoses Hx of total hip arthroplasty, left Procedures XR HIP WITH PELVIS LEFT Jeyson Lew MD [address] [place] [address] 92785 Referral ID Status Reason Start Date Expiration Date V isits Requested Visits Authorized [id number] New Request 07/20/2022 08/14/2023 1 1 [facility] for referral (narrative)* Consultation (Routine) - New Request Specialty Diagnoses / Procedures Referred By Contact Referred To Contact Physical Medicine & Rehabilitation Diagnoses Primary osteoarthritis of left hip Jeyson Lew MD [address] [place] [phone] Pb Rosas DO [address] [place] [address] 47[address] Referral ID Status Reason Start Date Expiration Date V isits Requested Visits Authorized [id number] New Request 12/12/2023 01/05/2025 1 1 * Diagnostic X-Ray (Routine) - New Request Specialty Diagnoses / Procedures Referred By Contac t Referred To Contact Diagnoses Primary osteoarthritis of left hip Procedures XR HIP WITH PELVIS LEFT Jeyson Lew MD [address] [place] [address] 84037 Referral ID Status Reason Start Date Expiration Date V isits Requested Visits Authorized [id number] New Request 12/12/2023 01/05/2025 1 1 [facility] for visit Narrative* Auth/Cert Specialty Diagnoses / Procedures Referred By Contac t Referred To Contact Diagnoses Primary osteoarthritis of left hip Primary osteoarthritis of left hip [M16.12] Procedures NE TOTAL HIP ARTHROPLASTY ARTHROPLASTY HIP TOTAL LATERAL APPROACH Jeyson Lew MD [address] [place] [address]13 Referral ID Status Reason Start Date Expiration Date Visits Re quested Visits Authorized [id number] 10/18/2021 1 1 [facility] Advance Directives No Advanced Directives Records FoundLatest [...] XR HIP WITH PELVIS LEFT Doug Sahni APRN-TRIMMING CUTTER MACHINE [address] [place] [address] Referral ID Status Reason Start Date Expiration Date V isits Requested Visits Authorized [id number] New Request 11/30/2021 12/25/2022 1 1 Referral ID Status Reason Start Date Expiration Date V isits Requested Visits Authorized [id number] New Request 01/16/2022 02/10/2023 1 1 Specialty Diagnoses / Procedures Referred By Contac t Referred To Contact Diagnoses Hx of total hip arthroplasty, left Procedures XR HIP WITH PELVIS LEFT Jeyson Lew MD [address] [place] [address] Referral ID Status Reason Start Date Expiration Date V isits Requested Visits Authorized [id number] New Request 03/30/2022 04/24/2023 1 1 Summary [...] XR HIP WITH PELVIS LEFT Doug Sahni APRN-TRIMMING CUTTER MACHINE [address] [place] [address] Referral ID Status Reason Start Date Expiration Date V isits Requested Visits Authorized [id number] New Request 11/30/2021 12/25/2022 1 1 Reason Comments Post Op Visit Specialty Diagnoses / Procedures Referred By Contac t Referred To Contact Diagnoses Hx of total hip arthroplasty, left Procedures XR HIP WITH PELVIS LEFT Jeyson Lew MD [address] [place] [address] 64329 Referral ID Status Reason Start Date Expiration Date V isits Requested Visits Authorized [id number] New Request 03/30/2022 04/24/2023 1 1 Referral ID Status Reason Start Date Expiration Date V isits Requested Visits Authorized [id number] New Request 07/20/2022 08/14/2023 1 1 Reason Comments Pain Reason Comments Consult Middle finger trigge ring Specialty Diagnoses / Procedures Referred By Contac t Referred To Contact Orthopaedics Diagnoses Hx of total hip arthroplasty, left Jeyson Lew MD [address] [place] [address] 70792 Serafin Calles MD [address] [place] [address] 76676 Referral ID Status Reason Start Date Expiration Date V isits Requested Visits Authorized [id number] New Request 08/01/2022 08/26/2023 1 1 Referral ID Status Reason Start Date Expiration Date V isits Requested Visits Authorized [id number] New Request 11/21/2022 12/16/2023 1 1 Reason Comments Follow-up Specialty Diagnoses / Procedures Referred By Contac t Referred To Contact Diagnoses Primary osteoarthritis of left hip Procedures XR HIP WITH PELVIS LEFT Jeyson Lew MD [address] [place] [address] Referral ID Status Reason Start Date Expiration Date V isits Requested Visits Authorized [id number] New Request 12/12/2023 01/05/2025 1 1 Reason Comments Pain Care Teams (unrecognized sec tion and content) Hot Strip Mill Inspector Relationship Specialty Start Date End Date Tyshawn Hickman II, MD [address] [place] [address] PCP - General Internal Medicine 08/10/21 Hot Strip Mill Inspector Relationship Specialty Start Date End Date Tyshawn Hickman II, MD [address] [place] [address] PCP - General Internal Medicine 08/10/21 Hot Strip Mill Inspector Relationship Specialty Start Date End Date Tyshawn Hickman II, MD [address] [place] [address] PCP - General Internal Medicine 08/10/21 Hot Strip Mill Inspector Relationship Specialty Start Date End Date Tyshawn Hickman II, MD [address] [place] [address] PCP - General Internal Medicine 08/10/21 Hot Strip Mill Inspector Relationship Specialty Start Date End Date Tyshawn Hickman II, MD [address] [place] [address] PCP - General Internal Medicine 08/10/21 Hot Strip Mill Inspector Relationship Specialty Start Date End Date Tyshawn Hickman II, MD [address] [place] [address] PCP - General Internal Medicine 08/10/21 Hot Strip Mill Inspector Relationship Specialty Start Date End Date Tyshawn Hickman II, MD [address] [place] [address] PCP - General Internal Medicine 08/10/21 Hot Strip Mill Inspector Relationship Specialty Start Date End Date Tyshawn Hickman II, MD [address] [place] [address] PCP - General Internal Medicine 08/10/21 Hot Strip Mill Inspector Relationship Specialty Start Date End Date Tyshawn Hickman II, MD [address] [place] [address] PCP - General Internal Medicine 08/10/21 Hot Strip Mill Inspector Relationship Specialty Start Date End Date Tyshawn Hickman II, MD [address] [place] [address] PCP - General Internal Medicine 08/10/21 Hot Strip Mill Inspector Relationship Specialty Start Date End Date Tyshawn Hickman II, MD [address] [place], [place] [id number] PCP - General Internal Medicine 08/10/21 Team Status: Active Member Role Status Dates Tyshawn Hickman II MD Primary Care Provider Active Team Status: Inactive Member Role Status Dates Tyshawn Hickman II MD Primary Care Provider Active Pb Sanabria MD Attending Provider Active Hot Strip Mill Inspector Relationship Specialty Start Date End Date Tyshawn Hickman II, MD [address] [place] [address] PCP - General Internal Medicine 08/10/21 Hot Strip Mill Inspector Relationship Specialty Start Date End Date Tyshawn Hickman II, MD [address] [place] [address] PCP - General Internal Medicine 08/10/21 Scheduled [...] 2 g, Intravenous, Administer over 30 Minutes, MACHINE FILLER SHREDDER TO PROCEDURE, 1 dose, Starting on Sat11/14/21 at 0754, Until Discontinued, Other, Pre-operative antibiotic, For 15 Minutes, Pre-op/Pre-Proc 1051 (Given - Provid er: Jessica Rosa, WHEELAGE CLERK-SUPPORT MANAGER - Comment: PSR s/p negative test dose) [...] DATE CREATED AUTHOR 10/17/2022 [facility] dical Specialist DATE CREATED AUTHOR AUTHOR'S ORGANIZ ATION 03/08/2023 [facility] DATE CREATED AUTHOR AUTHOR'S ORGANIZ ATION 10/12/2023 [facility] DATE CREATED AUTHOR AUTHOR'S ORGANIZ ATION 12/06/2023 [facility] DATE CREATED AUTHOR AUTHOR'S ORGANIZ ATION 12/20/2023 [facility] DATE CREATED AUTHOR AUTHOR'S ORGANIZ ATION 03/12/2024 [facility] dical Specialists EPIC Goals (unrecognized section [...] BE BASED ON THE PRIMARY CLINICAL RECORDS. [facility] provides no warranty or guarantee of the accuracy or completeness of information in this document.
--- NOTE | 2024-08-05 08:28 | P.CN_ITS ---
Consult Note: HPI Data of Consult Patient: known to practice within the last 3 years Requesting Physician: Stormy Reyes NP Primary Care Provider: BRIANDA MILLER Consult Narrative Reason for consult: f/u Narrative: Siria Petty a pleasant 74 year old female presents for evaluation and management of chronic low back pain with pain radiating into left hip and left leg. Pain 0/10 at this time increasing to 6/10 with standing walking and sleep, improved with rest. Failed tylenol, cannot take NSAIDs as she has had gastric bypass surgery. Has engaged in provider guided HEP greater than 6 weeks with worsening of her pain. denies loss of bowel/bladder. hx of lumbar bulging discs that responded well to ESIs in the past, recent lumbar xray and MRI as noted below. recently underwent Left L4/5 L5/S1 TFESI under fluoroscopy with >90% improvement in NC and radicular pain, continues to have intermittent moderate to severe left low back and SIJ pain. Patient did notice for a few days following her RAJEEV her blood sugars were >200 for which she spoke with her PCP about and no additional medications or treatments were advised. cc:: CC: Stormy Reyes NP Review of Systems ROS Status of ROS 10 or more systems reviewed and unremark able except as noted in history and below Musculoskeletal Reports: back pain and joint pain; Denies: extremity pain, joint swelling, muscle cramps or muscle weakness [facility] Medical History (Updated 06/25/24 @ 14:17 by Stormy Reyes NP) Iron deficiency anemia ?D50.9 - Iron deficiency anemia, unspecified (ICD-10) Type 2 diabetes mellitus with hyperglycemia ?E11.65 - Type 2 diabetes mellitus with hyperglycemia (ICD-10) Left sided sciatica ?M54.32 - Sciatica, left side (ICD-10) CAD (coronary artery disease) ?I25.10 - Atherosclerotic heart disease of [place] coronary artery without angina pectoris (ICD-10) Chronic heart failure with preserved ejection fraction (HFpEF) ?I50.32 - Chronic diastolic (congestive) heart failure (ICD-10) HTN (hypertension) ?I10 - Essential (primary) hypertension (ICD-10) COPD (chronic obstructive pulmonary disease) ?J44.9 - Chronic obstructive pulmonary disease, unspecified (ICD-10) Acute pelvic pain ?R10.2 - Pelvic and perineal pain (ICD-10) Diabetic acidosis, type I ?E10.10 - Type 1 diabetes mellitus with ketoacidosis without coma (ICD-10) Asthma ?J45.909 - Unspecified asthma, uncomplicated (ICD-10) Surgical History H/O lithotripsy ?Z98.890 - Other specified postprocedural states (ICD-10) Gastric bypass status for obesity ?Z98.84 - Bariatric surgery status (ICD-10) History of total left hip arthroplasty ?Z96.642 - Presence of left artificial hip joint (ICD-10) Family History Sister Family history of cancer Family history of diabetes mellitus Mother Family history of diabetes mellitus Family history of hypertension Social History Smoking status: Former smoker Second hand tobacco smoke exposure: No Non-prescribed substance use: denies use Previous occupational history: retired Known occupational exposures/hazards: No Highest level of school completed/degree received: high school graduate Do you want help with school or training: No Are you now , , , , never or living with a partner: In a typical week, how many times do you talk on the telephone with family, friends, or neighbors: 3 or more times per week How often do you get together with friends or relatives: 3 or more times per week How often do you attend nondenominational or mandaen services: 4 or more times per year Do you belong to any clubs or organizations such as nondenominational groups unions, fraternal or athletic groups, or school groups: no Total score: 3 Score interpretation: A score of greater than or equal to 2 indicates the lowest level of social isolation. Little interest or pleasure in doing things: not at all Feeling down, depressed, or hopeless: not at all Feel stressed/tense/nervous/anxious/difficulty sleeping: not at all Due to disability, difficulty making decisions: No Do you think of yourself as: straight/heterosexual Gender Identity: female Meds Home Medications and Allergies Home Medications ?Medication ?Instructions ?Recorded ?Confirmed ?Type alendronate 70 mg tablet 70 mg PO QWEEK 12/01/23 07/27/24 History aspirin 81 mg tablet,delayed 81 mg PO DAILY 12/01/23 07/27/24 History release (Adult Low Dose Aspirin) atorvastatin 40 mg tablet 40 mg PO DAILY 12/01/23 07/27/24 History cetirizine 10 mg tablet 10 mg PO DAILY PRN allergy symptoms 12/01/23 07/27/24 History cholecalciferol (vitamin D3) 125 125 mcg PO DAILY 12/01/23 07/27/24 History mcg (5,000 unit) tablet (Vitamin D3) cyanocobalamin (vitamin B-12) 500 500 mcg PO BID 12/01/23 07/27/24 History mcg tablet (Vitamin B-12) fluticasone propionate 50 2 spray intranasal DAILY 12/01/23 07/27/24 History mcg/actuation nasal spray,suspension furosemide 20 mg tablet 20 mg PO DAILY 12/01/23 07/27/24 History ipratropium 0.5 mg-albuterol 3 mg 3 ml inhalation BID 12/01/23 07/27/24 History (2.5 mg base)/3 mL nebulization soln metformin 500 mg tablet 500 mg PO TID 12/01/23 07/27/24 History metoprolol succinate 25 mg 25 mg PO DAILY 12/01/23 07/27/24 History tablet,extended release 24 hr multivitamin (Daily Multi-Vitamin 1 tab PO DAILY 12/01/23 07/27/24 History tablet) Allergies Allergy/AdvReac Type Severity Reaction Status Date / Time No Known Drug Allergies Allergy Verified 07/27/24 06:58 Exam Constitutional Documenting provider has reviewed patient's vital signs: yes Common normals: no apparent distress, oriented x3, healthy appearing, alert and well nourished General appearance: cooperative [facility] Common normals: normocephalic, hearing grossly normal bilaterally and moist oral mucous membranes Head and scalp: normocephalic Eye Common normals: PERRL Pupil: PERRL Neck & C-Spine Common normals: full ROM General: normal visual inspection Chest Common normals: inspection of chest normal Respiratory Common normals: normal respiratory effort, no retractions and no use of accessory muscles Back & Pelvis Lumbar spine/lower back: ROM limited, pain with ROM and straight leg raise negative bilaterally Sacroiliac joints: SI joint(s) abnormal Other: left SIJ positive sakshi(patricks), gaenslens, thigh thrust, compression test decreased sensation to left L4,5,S1 pattern strength 5/5 in BLE Extremity Common normals: normal to inspection and full ROM Neuro Common normals: oriented x3, CN's II-XII intact bilaterally, moves all extremities, no focal motor deficits, no sensory deficits noted, deep tendon reflexes 2+ bilaterally and gait normal Sensorium/orientation: alert Motor exam: strength 5/5 throughout and no movement abnormalities noted Psych Common normals: mental status grossly normal, thought process normal, cooperative, affect normal, speech normal and activity/motor behavior normal Speech: normal speech Thought process: normal thought process Results Imaging Lumbar MRI: Attestation: I have reviewed the pertinent imaging results. Radiologist's impression: DISC LEVELS: 12-L1: No significant disc/facet abnormality, spinal stenosis, or foraminal stenosis. L1-L2: No significant disc/facet abnormality, spinal stenosis, or foraminal stenosis. L2-L3: Early degenerative disc disease is present without focal protrusion or neural impingement. L3-L4: Moderate central canal and mild-moderate foramen narrowing bilaterally. Grade 1 anterior listhesis of L3 on 4 with mild posterior pseudo-disc bulging and mild disc height reduction. Moderate to marked degenerative facet arthropathy and ligamentum flavum thickening bilaterally. L4-L5: Mild central canal and bilateral foramen narrowing. Grade 1 anterolisthesis of L4 on 5 with mild posterior pseudodisc bulging and mild disc height reduction. Marked degenerative facet arthropathy. L5-S1: No significant central canal narrowing. Mild right, moderate left foramen narrowing. Mild diffuse disc bulging slightly eccentric to the left and moderate disc height reduction. Mild to moderate degenerative facet arthropathy. Lumbar Xray: Attestation: I have reviewed the pertinent imaging results. Radiologist's impression: BONES: Grade 1 anterior listhesis of L3 on 4 and of L4 on 5; no change in alignment during flexion and extension. Marked degenerative facet arthropathy L3-L4 through L5-S1 with marked bone encroachment on the neural foramen at L5-S1. DISC SPACES: L3-L4 mild narrowing. L4-L5 moderate narrowing. L5-S1 marked narrowing with prominent posterior disc osteophyte complex narrowing the neural foramen. PARASPINOUS: Negative. No paraspinous abnormality is seen. OTHER: Negative. Additional Findings Additional findings: If on a controlled substance or opioids, I have checked an [place] report on this patient and there are no aberrancies noted in the prescribing history.??If on a controlled substance or opioid a drug screen was completed and reviewed within the last year, and if there has not been a drug screen completed we ordered one today to monitor higher risk, state monitored pain medication use. As part of providing excellent, safe, comprehensive care, the following was completed at our patient's visit: 1. A medication reconciliation and review to ensure accurate knowledge of current/active medications, including asking our patients to inform us about any [id number] medications or herbal remedies/nutritional supplements/alternative remedies. 2. A review to specifically ensure our patients have had annual screening for screening for depression, screening for tobacco use, and screening for unhealthy alcohol use. For concerning screenings had a discussion with the patient, provided patient education, and recommended follow-up with primary care provider when appropriate. If patient noted with a risk of falling, they received education on strength, gait, and balance training to prevent future risk of falling. Assessment and Plan Assessment and Plan (1) Sacroiliitis: (2) Lumbar stenosis with neurogenic claudication: (3) Lumbar radiculopathy: Plan left L4-5 l5-S1 TFESI providing significant improvement in pain, functional ability, and symptoms of lumbar radiculopathy and NC left SIJ injection under fluoroscopy for sacroiliitis, risks vs benefits reviewed continue HEP as tolerated continue tylenol/ASA PRN f/u 2 weeks after injections complete
== END 2024-08-05 08:11 | disposition home or self-care (01) ==
LOC: PM 08:11
PROVIDERS: PCP Internal Medicine; Visit Provider Nurse Practitioner
DX: M46.1 Sacroiliitis, not elsewhere classified (principal); M48.062 Spinal stenosis, lumbar region with neurogenic claudication; M54.16 Radiculopathy, lumbar region
CPT/HCPCS: G0463

== ENCOUNTER 2024-08-17 08:18 | Day surgery (SDC) | payer MEDICARE, SELFPAY ==
--- OUTSIDE RECORDS SUMMARY | 2024-08-17 08:42 | XMS_ITS | CCD ---
Author Organization [facility] [place] Inform ion Partnership [facility] Care Team Providers Care Refiner Operator Name Role Phone Vick KRAUS MD, Tyshawn Primary Care Provider [phone] [place] Vick KRAUS MD, Tyshawn Primary Care Provider ALEXANDRA BELCHER Consulting Unavailable VICK, DR LAMAR Primary Care Unavailable RENE ., DR CHEN Admitting Unavailable RENE ., DR HCEN Attending Unavailable TAMMIE, DR ROLA Rios Admitting [...] VICK, DR LAMAR Consulting Unavailable VICK, DR LAMRA Primary Care Unavailable HICKMAN, DR LAMAR Admitting [...] Care Unavailable TYSHAWN HICKMAN Primary Care Physician [phone] Timmis, Jose Cruz H Referring Unavailable Timmis, [...] sources) Cat Hair Extract Drug Allergy 05-31-2023 [facility] [employer] [facility] Medications Current Medications Medication Drug Class(es) [...] acid 7540 MG / polyethylene glycol 3350 83414 MG / potassium chloride 1200 MG / sodium ascorbate 30020 MG / sodium chloride 3200 MG Powder for Oral Solution) / 1 (polyethylene glycol 3350 466340 MG / potassium chloride 1000 MG / [...] Furosemide Activ e hydrocortisone 25 mg/ml topi asrah lotion (16 sources) Corticosteroid hydrocortisone 2 .5 [...] (14 sources) Polyene Antifungal, Corticosteroid nystatin-triamcinolo ne 651167-6.1 UNIT/GM-% Ointment as needed. 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; Translations: [SHELTER CURRENT USE OF ASPIRIN] Onset: 10-04-2022 Episodic Other aftercare (1 source) Other long term care social worker (current) drug therapy; Translations: [OTH SHELTER CURRENT DRUG THERAPY] Onset: 10-04-2022 Episodic Other aftercare (1 source) 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 Comment on above: Performed By: #### E SR, CREACT #### Testing performed at [address] [address] SEDIMENTATION RATE, AUTOMATE Don 12-12-2023 ESR (Bld) [Velocity] 29 mm/h YouTube [facility] CT Maxillofacial w/o Contras ton 12-05-2023 [...] Abdul MD Transcribed by: YAZ Technologist: NATALY [facility] Consent for Treatmenton Consent for Treatment [id number] 0TIFF [facility] Physician Orderon 11-14-2023 Physician Order [id number] 0TIFF [facility] Physician Order [id number] 0TIFF [facility] MG MAMM SCREEN 3D NGOC CADon 02-28-2023 MG MAMM SCREEN 3D NGOC CAD Patient: SIRIA PETTY Exam Date: 02/28/2023 : 1950 Gender:F Ordering : DR TYSHAWN HICKMAN M.D. Admission #: [id number] Family : Order #: [id number] CLICK HERE TO VIEW EXAM RADIOLOGY REPORT [...] Treatments None Family Cancers None LOCATION: The [facility] BREAST COMPOSITION: Almost entirely fatty. [...] MD on 02/28/2023 at 14:23 Normal [facility] XR DEXA BONE DENSITYon 02-28 [...] PB MCBRIDE Date: 2023-02-28 15:36 Normal [facility] US Venous, Unilat, Lower Ext Righton [...] by Berhane Fernandez on 10/17/2022 1156 Normal [facility] XR HIP LT 2 3V W PELVISon [...] SOPHIA STEWART Date: 2022-10-03 00:50 Normal [facility] UPPER EXTREMITY INJECTION: L long [...] fashion. The patient was prepped with alcohol. [facility] Radiology Study observation (narrative) [facility] MG MAMM DX 3D RT CADon 06-07 MG MAMM DX 3D RT CAD Patient: SIRIA PETTY Exam Date: 06/07/2022 : 1950 Gender:F Ordering : DR TYSHAWN HICKMAN M.D. Admission #: [id number] Family : Order #: [id number] CLICK HERE TO VIEW EXAM RADIOLOGY REPORT [...] Treatments None Family Cancers None LOCATION: The [facility] BREAST COMPOSITION: Almost entirely fatty. [...] M.D. on 06/07/2022 at 15:44 Normal [facility] CBC AUTO DIFFon 05-26-2022 BASO # 0.0 103/ul Normal 0.0-0.1 [facility] Comment on above: Performed By: #### C BC #### [facility] [address] [address] [address] Francesca Ortiz Basophils/100 WBC (Bld) 0.5 % Normal 0.2-2.0 [facility] Comment on above: Performed By: #### C BC #### [facility] [address] [address] [address] Francesca Ortiz EO # 0.1 103/ul Normal 0.0-0.7 [facility] Comment on above: Performed By: #### C BC #### [facility] [address] [place] [address] Dr. Francesca Ortiz Eosinophils/100 WBC (Bld) 1.9 % Normal 0.9-7.0 [facility] Comment on above: Performed By: #### C BC #### [facility] [address] [place] [address] Dr. Francesca Ortiz Erythrocyte distribution width (RBC) [Ratio] 13.5 % Normal 11.0-15.0 [facility] Comment on above: Performed By: #### C BC #### [facility] [address] [place] [address] Dr. Francesca Ortiz Hematocrit (Bld) [Volume fraction] 35.7 % Critically low 36.0-48.0 [facility] Comment on above: Performed By: #### C BC #### [facility] [address] [place] [address] Dr. Francesca Ortiz Hemoglobin (Bld) [Mass/Vol] 11.3 g/dL Critically low 12.0-16.0 [facility] Comment on above: Performed By: #### C BC #### [facility] [address] [place] [address] Dr. Francesca Ortiz IG # 0.01 10e3/ul Normal 0.00-0.03 [facility] Comment on above: Performed By: #### C BC #### [facility] [address] [place] [address] Dr. Francesca Ortiz IG % 0.2 % Normal 0.0-0.5 [facility] Comment on above: Performed By: #### C BC #### [facility] [address] [place] [address] Dr. Francesca Ortiz LYMPH # 1.7 103/ul Normal 1.2-3.8 [facility] Comment on above: Performed By: #### C BC #### [facility] [address] [place] [address] Dr. Francesca Ortiz Lymphocytes/100 WBC (Bld) 27.9 % Normal 20.5-60.0 [facility] Comment on above: Performed By: #### C BC #### [facility] [address] [place] [address] Dr. Francesca Ortiz MANUAL DIFF REQ NO Normal [facility] Comment on above: Performed By: #### C BC #### [facility] [address] [place] [address] Dr. Francesca Ortiz MCH (RBC) [Entitic mass] 29.9 pg Normal 26.7-34.0 [facility] Comment on above: Performed By: #### C BC #### [facility] [address] [place] [address] Dr. Francesca Ortiz MCHC (RBC) [Mass/Vol] 31.7 g/dL Normal 29.9-35.2 [facility] Comment on above: Performed By: #### C BC #### [facility] [address] [place] [address] Dr. Francesca Ortiz MCV (RBC) [Entitic vol] 94.4 fL Normal 81.0-99.0 [facility] Comment on above: Performed By: #### C BC #### [facility] [address] [place] [address] Dr. Francesca Ortiz MONO # 0.6 103/ul Normal 0.3-0.8 [facility] Comment on above: Performed By: #### C BC #### [facility] [address] [place] [address] Dr. Francesca Ortiz Monocytes/100 WBC (Bld) 9.9 % Normal 1.7-12.0 [facility] Comment on above: Performed By: #### C BC #### [facility] [address] [place] [address] Dr. Francesca Ortiz NEUT # 3.5 103/ul Normal 1.4-6.5 [facility] Comment on above: Performed By: #### C BC #### [facility] [address] [place] [address] Dr. Francesca Ortiz Neutrophils/100 WBC (Bld) 59.6 % Normal 43.0-75.0 [facility] Comment on above: Performed By: #### C BC #### [facility] [address] [place] [address] Dr. Francesca Ortiz Platelet mean volume (Bld) [Entitic vol] 10.7 fL Normal 9.5-13.5 [facility] Comment on above: Performed By: #### C BC #### [facility] [address] [place] [address] Dr. Francesca Ortiz PLT 131 103/ul Critically low 150-450 [facility] Comment on above: Performed By: #### C BC #### [facility] [address] [place] [address] Dr. Francesca Ortiz RBC 3.78 106/ul Critically low 4.20-5.40 [facility] Comment on above: Performed By: #### C BC #### [facility] [address] [place] [address] Dr. Francesca Ortiz WBC 5.9 103/ul Normal 4.0-11.0 [facility] Comment on above: Performed By: #### C BC #### [facility] [address] [place] [address] Dr. Francesca Ortiz PROF 14(COMP METB)on 022 Albumin [Mass/Vol] 3.6 g/dL Normal 3.4-5.0 [facility] Comment on above: Performed By: #### C MP #### [facility] [address] [place] [address] Dr. Francesca Ortiz Albumin/Globulin [Mass ratio] 1.1 {ratio} Normal [facility] Comment on above: Performed By: #### C MP #### [facility] [address] [address] [address] Francesca Ortiz ALP [Catalytic activity/Vol] 93 U/L Normal 46-116 [facility] Comment on above: Performed By: #### C MP #### [facility] [address] [address] [address] Francesca Ortiz ALT [Catalytic activity/Vol] 33 U/L Normal 14-59 [facility] Comment on above: Performed By: #### C MP #### [facility] [address] [address] [address] Francesca Ortiz Anion gap [Moles/Vol] 13.2 mmol/L Normal [facility] Comment on above: Performed By: #### C MP #### [facility] [address] [place] [address] Dr. Francesca Ortiz AST [Catalytic activity/Vol] 34 U/L Normal 15-37 [facility] Comment on above: Performed By: #### C MP #### [facility] [address] [place] [address] Dr. Francesca Ortiz Bilirubin [Mass/Vol] 0.5 mg/dL Normal 0.2-1.0 [facility] Comment on above: Performed By: #### C MP #### [facility] [address] [place] [address] Dr. Francesca Ortiz Calcium [Mass/Vol] 9.0 mg/dL Normal 8.5-10.1 [facility] Comment on above: Performed By: #### C MP #### [facility] [address] [place] [address] Dr. Francesca Ortiz Chloride [Moles/Vol] 104 mmol/L Normal 98-107 [facility] Comment on above: Performed By: #### C MP #### [facility] [address] [address] [address] Francesca Ortiz CO2 [Moles/Vol] 27.2 mmol/L Normal 21.0-32.0 [facility] Comment on above: Performed By: #### C MP #### [facility] [address] [address] [address] Francesca Ortiz Creatinine [Mass/Vol] 0.92 mg/dL Normal 0.55-1.02 [facility] Comment on above: Performed By: #### C MP #### [facility] [address] [address] [address] Francesca Ortiz EGFR-AF GABONESE >60 Normal >=60 [facility] Comment on above: Performed By: #### C MP #### [facility] [address] [address] [address] Francesca Ortiz EGFR-NON AF GABONESE =60 Normal >=60 [facility] Comment on above: Performed By: #### C MP #### [facility] [address] [place] [address] Dr. Francesca Ortiz Globulin (S) [Mass/Vol] 3.4 g/dL Normal [facility] Comment on above: Performed By: #### C MP #### [facility] [address] [place] [address] Dr. Francesca Ortiz Glucose [Mass/Vol] 113 mg/dL Critically high 74-106 [facility] Comment on above: Performed By: #### C MP #### [facility] [address] [place] [address] Dr. Francesca Ortiz Potassium [Moles/Vol] 4.4 mmol/L Normal 3.5-5.1 [facility] Comment on above: Performed By: #### C MP #### [facility] [address] [place] [address] Dr. Francesca Ortiz Protein [Mass/Vol] 7.0 g/dL Normal 6.4-8.2 [facility] Comment on above: Performed By: #### C MP #### [facility] [address] [place] [address] Dr. Francesca Ortiz Sodium [Moles/Vol] 140 mmol/L Normal 136-145 [facility] Comment on above: Performed By: #### C MP #### [facility] [address] [place] [address] Dr. Francesca Ortiz Urea nitrogen [Mass/Vol] 17.0 mg/dL Normal 7.0-18.0 [facility] Comment on above: Performed By: #### C MP #### [facility] [address] [place] [address] Dr. Francesca Ortiz Urea nitrogen/Creatinine [Mass ratio] 18.5 mg/mg Normal [facility] Comment on above: Performed By: #### C MP #### [facility] [address] [place] [address] Dr. Francesca Ortiz XR HIP LT 2 [...] LUKE BLACKWOOD Date: 2022-05-26 15:55 Normal [facility] CBC AUTO DIFFon 05-10-2022 BASO # 0.0 103/ul Normal 0.0-0.1 [facility] Comment on above: Performed By: #### C BC #### [facility] [address] [place] [address] Dr. Francesca Ortiz Basophils/100 WBC (Bld) 0.4 % Normal 0.2-2.0 [facility] Comment on above: Performed By: #### C BC #### [facility] [address] [place] [address] Dr. Francesca Ortiz EO # 0.1 103/ul Normal 0.0-0.7 [facility] Comment on above: Performed By: #### C BC #### [facility] [address] [place] [address] Dr. Francesca Ortiz Eosinophils/100 WBC (Bld) 1.8 % Normal 0.9-7.0 [facility] Comment on above: Performed By: #### C BC #### [facility] [address] [place] [address] Dr. Francesca Ortiz Erythrocyte distribution width (RBC) [Ratio] 13.9 % Normal 11.0-15.0 [facility] Comment on above: Performed By: #### C BC #### [facility] [address] [place] [address] Dr. Francesca Ortiz Hematocrit (Bld) [Volume fraction] 36.8 % Normal 36.0-48.0 [facility] Comment on above: Performed By: #### C BC #### [facility] [address] [place] [address] Dr. Francesca Ortiz Hemoglobin (Bld) [Mass/Vol] 11.7 g/dL Critically low 12.0-16.0 [facility] Comment on above: Performed By: #### C BC #### [facility] [address] [place] [address] Dr. Francesca Ortiz IG # 0.01 10e3/ul Normal 0.00-0.03 [facility] Comment on above: Performed By: #### C BC #### [facility] [address] [place] [address] Dr. Francesca Ortiz IG % 0.2 % Normal 0.0-0.5 [facility] Comment on above: Performed By: #### C BC #### [facility] [address] [place] [address] Dr. Francesca Ortiz LYMPH # 1.6 103/ul Normal 1.2-3.8 [facility] Comment on above: Performed By: #### C BC #### [facility] [address] [place] [address] Dr. Francesca Ortiz Lymphocytes/100 WBC (Bld) 31.5 % Normal 20.5-60.0 [facility] Comment on above: Performed By: #### C BC #### [facility] [address] [place] [address] Dr. Francesca Ortiz MANUAL DIFF REQ NO Normal [facility] Comment on above: Performed By: #### C BC #### [facility] [address] [place] [address] Dr. Francesca Ortiz MCH (RBC) [Entitic mass] 30.0 pg Normal 26.7-34.0 [facility] Comment on above: Performed By: #### C BC #### [facility] [address] [place] [address] Dr. Francesca Ortiz MCHC (RBC) [Mass/Vol] 31.8 g/dL Normal 29.9-35.2 [facility] Comment on above: Performed By: #### C BC #### [facility] [address] [place] [address] Dr. Francesca Ortiz MCV (RBC) [Entitic vol] 94.4 fL Normal 81.0-99.0 [facility] Comment on above: Performed By: #### C BC #### [facility] [address] [place] [address] Dr. Francesca Ortiz MONO # 0.6 103/ul Normal 0.3-0.8 [facility] Comment on above: Performed By: #### C BC #### [facility] [address] [place] [address] Dr. Francesca Ortiz Monocytes/100 WBC (Bld) 11.0 % Normal 1.7-12.0 [facility] Comment on above: Performed By: #### C BC #### [facility] [address] [place] [address] Dr. Francesca Ortiz NEUT # 2.8 103/ul Normal 1.4-6.5 [facility] Comment on above: Performed By: #### C BC #### [facility] [address] [place] [address] Dr. Francesca Ortiz Neutrophils/100 WBC (Bld) 55.1 % Normal 43.0-75.0 [facility] Comment on above: Performed By: #### C BC #### [facility] [address] [place] [address] Dr. Francesca Ortiz Platelet mean volume (Bld) [Entitic vol] 11.0 fL Normal 9.5-13.5 [facility] Comment on above: Performed By: #### C BC #### [facility] [address] [address] [address] Francesca Ortiz PLT 136 103/ul Critically low 150-450 [facility] Comment on above: Performed By: #### C BC #### [facility] [address] [address] [address] Francesac Ortiz RBC 3.90 106/ul Critically low 4.20-5.40 [facility] Comment on above: Performed By: #### C BC #### [facility] [address] [address] [address] Francesca Ortiz WBC 5.1 103/ul Normal 4.0-11.0 [facility] Comment on above: Performed By: #### C BC #### [facility] [address] [address] [address] ABD/PELV W CONon [...] CHEN ZAMORANO Date: 2022-05-10 15:30 Normal [facility] PROF CHEM 8 (BAS METB)on Anion gap [Moles/Vol] 9.9 mmol/L Normal [facility] Comment on above: Performed By: #### B MP #### [facility] [address] [place] [address] Dr. Francesca Ortiz Calcium [Mass/Vol] 9.5 mg/dL Normal 8.5-10.1 [facility] Comment on above: Performed By: #### B MP #### [facility] [address] [address] [address] Francesca Ortiz Chloride [Moles/Vol] 104 mmol/L Normal 98-107 [facility] Comment on above: Performed By: #### B MP #### [facility] [address] [address] [address] Francesca Ortiz CO2 [Moles/Vol] 27.2 mmol/L Normal 21.0-32.0 [facility] Comment on above: Performed By: #### B MP #### [facility] [address] [address] [address] Francesca Ortiz Creatinine [Mass/Vol] 0.88 mg/dL Normal 0.55-1.02 [facility] Comment on above: Performed By: #### B MP #### [facility] [address] [address] [address] Francesca Ortiz EGFR-AF GABONESE >60 Normal >=60 [facility] Comment on above: Performed By: #### B MP #### [facility] [address] [address] [address] Francesca Ortiz EGFR-NON AF GABONESE >60 Normal >=60 [facility] Comment on above: Performed By: #### B MP #### [facility] [address] [address] [address] Francesca Ortiz Glucose [Mass/Vol] 111 mg/dL Critically high 74-106 [facility] Comment on above: Performed By: #### B MP #### [facility] [address] [address] [address] Francesca Ortiz Potassium [Moles/Vol] 4.1 mmol/L Normal 3.5-5.1 [facility] Comment on above: Performed By: #### B MP #### [facility] [address] [address] [address] Francesca Ortiz Sodium [Moles/Vol] 137 mmol/L Normal 136-145 [facility] Comment on above: Performed By: #### B MP #### [facility] [address] [address] [address] Francesca Ortiz Urea nitrogen [Mass/Vol] 17.0 mg/dL Normal 7.0-18.0 [facility] Comment on above: Performed By: #### B MP #### [facility] [address] [address] [address] Francesca Ortiz Urea nitrogen/Creatinine [Mass ratio] 19.3 mg/mg Normal [facility] Comment on above: Performed By: #### B MP #### [facility] [address] [address] [address] Francesca Ortiz GLUCOSE (POC DEVICE)on 11-14 GLUCOSE, POINT OF CARE 169 [facility] Interpretation and review of laboratory results Abnormal [facility] Materials Planner/Production Planner [id number] [facility] HEMOGLOBIN & HEMATOCRITon Hematocrit (Bld) [Volume fraction] 34.9 % Low 36.0 - 48.0 % [facility] Hemoglobin (Bld) [Mass/Vol] 11.2 g/dL Low [facility] Interpretation and review of laboratory results Abnormal [facility] NOVEL CORONAVIRUS LAB 1 - NA SOPHARYNGEALon 11-14-2021 NARRATIVE -1 This test was performed using isothermal GIO and has been approved as Emergency Use Authorization (EUA) for the qualitative detection [id number] nucleic acid. [facility] SARS-CoV-2 (COVID-19) RNA GIO+probe Ql (Unsp spec) Not detected NOT DETECTED [facility] Comment on above: Negative results do [...] patient is critically ill or clinically deteriorating. [facility] PROTIME-INRon 11-14-2021 INR Coag (PPP) [Relative time] 1.15 {INR} High [facility] Comment on above: 2.0-3.0 THERAPEUTIC RANGE 2.5-3.5 MECHANICAL VALVE RANGE Interpretation and review of laboratory results Abnormal [facility] PT Coag (PPP) [Time] 14.9 s High [facility] TYPE AND SCREEN - POSSIBLE T RANSFUSIONon 11-14-2021 ABO and Rh group Nom (Bld ) Positive [facility] ARM BAND NUMBER [id number] [facility] Blood group antibody screen Ql Negative [facility] EXPIRATION DATE 11/17/2021,3221 [facility] XR PELVIS AP ONLYon 11-14-20 21 IMPRESSION: [...] or dislocations. IMPRESSION IMPRESSION: Routine postoperative changes. [facility] Radiology Study observation (narrative) [facility] XR PELVIS AP ONLYOrdered By: Mohini Ramirez on 11-14-2021 [facility] Work Phone: Complete Blood Counton 11-07 Erythrocyte distribution width (RBC) [Ratio] 17.0 % High 11.0-15.0 [facility] President Comment on above: Performed By: #### C BC #### [facility] [address], [place] [id number] Hematocrit (Bld) [Volume fraction] 37.3 % Normal 35.0-47.0 [facility] Comment on above: Performed By: #### C BC #### [facility] [address], [place] [id number] Hemoglobin (Bld) [Mass/Vol] 11.6 g/dL Normal 11.6-15.5 [facility] Comment on above: Performed By: #### C BC #### [facility] [address], [place] [id number] MCH (RBC) [Entitic mass] 28.6 pg Normal 27.0-33.0 [facility] Comment on above: Performed By: #### C BC #### [facility] [address], [place] [id number] MCHC (RBC) [Mass/Vol] 31.1 g/dL Low 32.0-36.0 [facility] Comment on above: Performed By: #### C BC #### [facility] [address], [place] [id number] MCV (RBC) [Entitic vol] 92 fL Normal 80-100 [facility] Comment on above: Performed By: #### C BC #### [facility] [address], [place] [id number] Platelet mean volume (Bld) [Entitic vol] 11.10 fL Normal 7.50-12.50 [facility] President Comment on above: Performed By: #### C BC #### [facility] [address], [place] [id number] Platelets (Bld) [#/Vol] 155 10*3/uL Normal 140-400 [facility] Specialist Comment on above: Performed By: #### C BC #### [facility] [address], [place] [id number] RBC (Bld) [#/Vol] 4.06 10*6/uL Normal 3.90-5.20 [facility] Specialist Comment on above: Performed By: #### C BC #### [facility] [address], [place] [id number] RDW-SD 57.8 fL High 37.0-50.0 [facility] Comment on above: Performed By: #### C BC #### [facility] [address], [place] [id number] WBC (Bld) [#/Vol] 5.6 10*3/uL Normal 3.8-11.0 [facility] Comment on above: Performed By: #### C BC #### [facility] [address], [place] [id number] Vital Signs Date Time Vital Sign Value Performing Clinician Facility 12-12-2023 15:42-0500 Body height 157.5 cm Jeyson Lew MD Work Phone: [facility] 12-12-2023 15:42-0500 Body mass index (BMI) [Ratio] 33.11 kg/m2 Jeyson eLw MD Work Phone: [facility] 12-12-2023 15:42-0500 Body weight 82.1 kg Jeyson Lew MD Work Phone: [facility] 10-08-2023 13:00-0500 Body height 157.48 cm Pb [facility] Other [employer] Other 10-08-2023 13:00-0500 Body mass index (BMI) [Ratio] 32.55 kg/m2 Pb [facility] Other [employer] Other 10-08-2023 13:00-0500 Body weight 80.74 kg Pb [facility] Other [employer] Other 10-08-2023 13:00-0500 Diastolic blood pressure 67 mm[Hg] Pb [facility]abria Other [employer] Other 10-08-2023 13:00-0500 SaO2% (BldA) [Mass fraction] 95 % Pb [facility] Other [employer] Other 10-08-2023 13:00-0500 Systolic blood pressure 124 mm[Hg] Pb [facility] Other [employer] Other 11-27-2022 15:05-0500 Body height 157.5 cm Doug Sahni FELT FINISHING SUPERVISOR-DATABASE SECURITY ADMINISTRATOR Work Phone: [employer] 11-27-2022 15:05-0500 Body mass index (BMI) [Ratio] 34.39 kg/m2 Doug Sahni APRN-DATABASE SECURITY ADMINISTRATOR Work Phone: [employer] 11-27-2022 15:05-0500 Body temperature 97 [degF] Doug Sahni FELT FINISHING SUPERVISOR-DATABASE SECURITY ADMINISTRATOR Work Phone: [employer] 11-27-2022 15:05-0500 Body weight 85.28 kg Doug Sahni APRN-DATABASE SECURITY ADMINISTRATOR Work Phone: [employer] 08-08-2022 08:48-0400 Body height 157.5 cm Serafin Calles MD Work Phone: [employer] 08-08-2022 08:48-0400 Body mass index (BMI) [Ratio] 34.56 kg/m2 Serafin Calles MD Work Phone: [employer] 08-08-2022 08:48-0400 Body temperature 98.49 [degF] Serafin Calles MD Work Phone: [employer] 08-08-2022 08:48-0400 Body weight 85.7 kg Serafin Calles MD Work Phone: [employer] 08-01-2022 11:19-0400 Body height 157.5 cm Jeyson Lew MD Work Phone: [employer] [facility] 08-01-2022 11:19-0400 Body mass index (BMI) [Ratio] 34.57 kg/m2 Jeyson Lew MD Work Phone: [employer] [facility] 08-01-2022 11:19-0400 Body weight 85.73 kg Jeyson Lew MD [facility] 04-06-2022 09:43-0400 Body height 157.5 cm Jeyson Lew MD Work Phone: [employer] [facility] 04-06-2022 09:43-0400 Body mass index (BMI) [Ratio] 34.57 kg/m2 Jeyson Lew MD Work Phone: [employer] [facility] 04-06-2022 09:43-0400 Body weight 85.73 kg Jeyson Lew MD Work Phone: [facility] [employer] [facility] 12-07-2021 14:22-0500 Body height 157.5 cm Doug Sahni FELT FINISHING SUPERVISOR-DATABASE SECURITY ADMINISTRATOR Work Phone: [employer] [facility] 12-07-2021 14:22-0500 Body mass index (BMI) [Ratio] 34.57 kg/m2 Doug Sahni FELT FINISHING SUPERVISOR-DATABASE SECURITY ADMINISTRATOR Work Phone: [employer] [facility] 12-07-2021 14:22-0500 Body temperature 98.2 [degF] Doug Sahni FELT FINISHING SUPERVISOR-DATABASE SECURITY ADMINISTRATOR Work Phone: [facility] 12-07-2021 14:22-0500 Body weight 85.73 kg Doug Sahni FELT FINISHING SUPERVISOR-DATABASE SECURITY ADMINISTRATOR Work Phone: [facility] 11-14-2021 18:30-0500 Diastolic blood pressure 68 mm[Hg] Jeyson Lew MD Work Phone: [facility] 11-14-2021 18:30-0500 Heart rate 73 /min Jeyson Lew MD Work Phone: [facility] 11-14-2021 18:30-0500 Respiratory rate 20 /min Jeyson Lew MD Work Phone: [employer] 11-14-2021 18:30-0500 SaO2% (BldA) [Mass fraction] 96 % Jeyson Lew MD Work Phone: [employer] 11-14-2021 18:30-0500 Systolic blood pressure 154 mm[Hg] Jeyson Lew MD Work Phone: [employer] 11-14-2021 12:44-0500 Body temperature 98.2 [degF] Jeyson Lew MD Work Phone: [employer] 11-14-2021 08:23-0500 Body height 157.5 cm Jeyson Lew MD Work Phone: [employer] 11-14-2021 08:23-0500 Body mass index (BMI) [Ratio] 34.39 kg/m2 Jeyson Lew MD Work Phone: [employer] 11-14-2021 08:23-0500 Body weight 85.28 kg Jeyson Lew MD Work Phone: [employer] 10-03-2021 14:00-0400 Body height 157.48 cm Pb [facility] Other [employer] Other 10-03-2021 14:00-0400 Body mass index (BMI) [Ratio] 35.3 kg/m2 Pb [facility] Other [employer] Other 10-03-2021 14:00-0400 Body temperature 97.7 [degF] Pb [facility] Other [employer] Other 10-03-2021 14:00-0400 Body weight 87.54 kg Pb [facility] Other [employer] Other 10-03-2021 14:00-0400 Diastolic blood pressure 71 mm[Hg] Pb [facility] Other [employer] Other 10-03-2021 14:00-0400 SaO2% (BldA) [Mass fraction] 98 % Pb Daniele Other [employer] Other 10-03-2021 14:00-0400 Systolic blood pressure 146 mm[Hg] Pb [facility] Other [employer] Other Encounters Encounter Date Encounter Type Care Provider Facility Start: 03-11-2024 End: 03-11-2024 ambulatory TYSHAWN Rodriguez HICKMAN Not Available Start: 01-20-2024 End: 01-20-2024 ambulatory TYSHAWN B HICKMAN Not Available Start: 12-30-2023 End: 12-30-2023 ambulatory TYSHAWN B HICKMAN Not Available Start: 12-19-2023 End: 12-19-2023 ambulatory TYSHAWN B HICKMAN Not Available Start: 12-12-2023 ambulatory [facility] Start: 12-12-2023 ambulatory [facility] Start: 12-12-2023 End: 12-12-2023 Office outpatient visit 15 minutes Jeyson Lew MD Work Phone: [facility] Comment on above: Primary osteoarthrit is of left hip (Primary Dx) Start: 12-12-2023 End: 12-12-2023 Subsequent hospital visit by physician Jeyson Lew MD Work Phone: [facility] Start: 12-11-2023 End: 12-11-2023 ambulatory JOSE CRUZ H TIMMIS Not Available Start: 12-05-2023 End: 12-06-2023 ambulatory Jose Cruz H Timmis Facility:[facility] Start: 12-05-2023 End: 12-05-2023 Patient encounter procedure Jose Cruz H Timmis [facility] Start: 11-04-2023 End: 11-04-2023 ambulatory JOSE CRUZ H TIMMIS Not Available Start: 10-08-2023 Office outpatient vi sit 25 minutes Pb Sanabria [facility] Start: 10-08-2023 End: 10-08-2023 ambulatory NAYANA Tyshawn Hickman Work Phone: [facility] Work Phone: Start: 10-08-2023 End: 10-08-2023 Patient encounter procedure II Tyshawn Hickman Work Phone: [facility] Work Phone: Start: 02-28-2023 End: 03-01-[address] TYSHAWN HICKMAN Facility:[facility] Start: 01-03-2023 ambulatory JEYSON LEW [facility] Start: 11-27-2022 End: 11-27-2022 Office outpatient visit 15 minutes Doug Sahni APRN-DATABASE SECURITY ADMINISTRATOR Work Phone: [facility] Comment on above: Primary osteoarthrit is of one hip, left (Primary Dx) Start: 11-27-2022 End: 11-27-2022 Subsequent hospital visit by physician Doug Sahni APRN-DATABASE SECURITY ADMINISTRATOR Work Phone: [facility] Start: 10-03-2022 End: 10-03-[address] ROLA IVORY Facility:[facility] Start: 09-17-2022 End: 09-17-2022 ambulatory ALEXANDRA DOE . Facility:[facility] Start: 08-08-2022 End: 08-08-2022 Office outpatient new 30 minutes Serafin Calles MD Work Phone: [facility] Comment on above: Trigger finger of le ft hand, unspecified finger (Primary Dx) Start: 08-01-2022 End: 08-01-2022 Office outpatient visit 15 minutes Jeyson Lew MD Work Phone: [facility] Comment on above: Hx of total hip arth roplasty, left (Primary Dx); Pain due to left hip joint prosthesis, sequela Start: 08-01-2022 End: 08-01-2022 Subsequent hospital visit by physician Jeyson Lew MD Work Phone: [facility] Start: 06-07-2022 End: 06-08-[address] TYSHAWN HICKMAN Facility:[facility] Start: 05-28-2022 End: 05-29-[address] TYSHAWN HICKMAN Facility:[facility] Start: 05-26-2022 End: 05-26-[address] TYSHAWN HICKMAN Facility:[facility] Start: 05-10-2022 End: 05-10-[address] APRIL LÓPEZ . Facility:[facility] Start: 04-06-2022 End: 04-06-2022 Office outpatient visit 15 minutes Jeyson Lew MD Work Phone: [facility] Comment on above: Hx of total hip arth roplasty, left (Primary Dx) Start: 04-06-2022 End: 04-06-2022 Subsequent hospital visit by physician Jeyson Lew MD Work Phone: [facility] Start: 01-10-2022 End: 01-19-2022 Postop follow up visit related to original px Doug Sahni FELT FINISHING SUPERVISOR-DATABASE SECURITY ADMINISTRATOR Work Phone: [facility] Comment on above: Hx of total hip arth roplasty, left (Primary Dx) Start: 12-07-2021 End: 12-07-2021 Postop follow up visit related to original px Jeyson Lew MD Work Phone: [facility] Comment on above: Hx of total hip arth roplasty, left (Primary Dx) Start: 12-07-2021 End: 12-07-2021 Subsequent hospital visit by physician Doug Sahni FELT FINISHING SUPERVISOR-DATABASE SECURITY ADMINISTRATOR Work Phone: [facility] Start: 11-14-2021 End: 11-14-2021 Patient encounter status Jeyson Lew MD Work Phone: [facility] Start: 11-14-2021 End: 11-14-2021 Subsequent hospital visit by physician Jeyson Lew MD Work Phone: [facility] Comment on above: Primary osteoarthrit is of left hip Start: 11-06-2021 End: 11-06-2021 Admission to establishment Santiago Deysi Ont Pat Testing [facility] Pre [facility]mission Comment on above: Preop testing (Prima ry Dx) Start: 11-06-2021 End: 11-06-2021 Patient encounter status Santiago Deysi Ont Pat Testing [facility] Pre [facility] Start: 10-03-2021 End: 10-03-2021 ambulatory Pb Sanabria Other [employer] Other Start: 10-03-2021 Office outpatient vi sit 25 minutes Pb Sanabria [facility] Procedures Date Procedure Procedure Detail Performing Clinician Start: 08-08-2022 Injection 1 tendon sheath/ligament aponeurosis Serafin Calles MD Work Phone: Start: 11-14-2021 Blood count hematocrit Doug Sahni FELT FINISHING SUPERVISOR-DATABASE SECURITY ADMINISTRATOR Work Phone: Start: 11-14-2021 Gluc bld gluc mntr d ev cleared fda spec home use Jeyson Lew MD Work Phone: Start: 11-14-2021 Radiologic examinati on pelvis 1/2 views Doug Sahni FELT FINISHING SUPERVISOR-DATABASE SECURITY ADMINISTRATOR Work Phone: Start: 11-14-2021 Iadna nos amplified probe tq each organism Doug Sahni FELT FINISHING SUPERVISOR-DATABASE SECURITY ADMINISTRATOR Work Phone: Start: 11-14-2021 Blood typing serologic abo Jeyson Lew MD Work Phone: Start: 11-14-2021 Prothrombin time Jeyson Lew MD Work Phone: Plan of Treatment Date Care Activity Detail Author Start: 09-17-2032 Tetanus vaccination [facility] Start: 08-03-2024 Tetanus vaccination [facility] Start: 10-09-2023 Pneumococcal vaccination PNEUM OCOCCAL VACCINE SERIES (3 - PPSV23 or PCV20) [facility] Start: 08-02-2023 COVID-19 VACCINE ( season) COVID-19 VACCINE ( season) [facility] Start: 11-14-2022 End: 11-14-2022 Patient encounter procedure 11/14/2022 Office Visit Orthopaedics Doug Sahni, FELT FINISHING SUPERVISOR-DATABASE SECURITY ADMINISTRATOR [address] [place] [address] [facility] Start: 10-10-2022 End: 10-10-2022 Patient encounter procedure 10/10/2022 Office Visit Orthopaedics Serafin Calles MD [address] [place] [address] [facility] Start: 10-04-2022 Screening for malign ant neoplasm of colon COLORECTAL CANCER SCREENING DISCUSSION [facility] Start: 08-31-2022 Potassium [Moles/vol ume] in Serum or Plasma POTASSIUM [facility] Start: 08-08-2022 End: 08-08-2022 Patient encounter procedure 08/08/2022 Office Visit Orthopaedics Serafin Calles MD [address] [place] [address] [facility] Start: 08-02-2022 Influenza vaccination INFLUENZA VACC INE (#1) [facility] Start: 03-15-2022 End: 03-15-2022 Patient encounter procedure 03/15/2022 Office Visit Orthopaedics Jeyson Lew MD [address] [place] [id number] [facility] Start: 12-28-2021 End: 12-28-2021 Patient encounter procedure [facility] Start: 12-07-2021 End: 12-07-2021 Patient encounter procedure 12/07/2021 Office Visit Orthopaedics Doug Sahni, FELT FINISHING SUPERVISOR-DATABASE SECURITY ADMINISTRATOR [address] [place] [id number] [facility] Start: 11-14-2021 End: 11-14-2021 Admission to same day surgery center 11/14/2021 Surgery Multispecialty Jeyson Lew MD [address] [place] [id number] ARTHROPLASTY HIP TOTAL AL - LEFT [facility] Comment on above: ARTHROPLASTY HIP TOT AL AL - LEFT Start: 11-14-2021 End: 11-14-2021 Arthrp acetblr/prox fem prostc agrft/algrft ARTHROPLASTY HIP TOTAL LATERAL APPROACH Primary osteoarthritis of left hip 11/14/2021 10:00 AM EST [facility] Start: 11-14-2021 Subsequent hospital visit by physician 11/14/2021 Hospital Encounter Multispecialty Jeyson Lew MD [address] [id number] Primary osteoarthritis of left hip [facility] Comment on above: Primary osteoarthrit is of left hip Start: 09-16-2021 COVID-19 VACCINE (3 - Booster for Moderna series) COVID-19 VACCINE (3 - Booster for Moderna series) [facility] Start: 08-17-2021 COVID-19 VACCINE (3 - Booster for Moderna series) COVID-19 VACCINE (3 - Booster for Moderna series) [facility] Start: 08-02-2021 Influenza vaccination INFLUENZA VACC INE (#1) [facility] Start: 05-12-2021 COVID-19 VACCINE (3 - Booster for Moderna series) COVID-19 VACCINE (3 - Booster for Moderna series) [facility] Start: 10-27-2020 Screening for malign ant neoplasm of breast MAMMOGRAM SCREENING DISCUSSION [facility] Start: 10-09-2019 Pneumococcal vaccination PNEUM OCOCCAL VACCINE SERIES (#3) [facility] Start: 2017 Pneumococcal vaccination [facility] Start: 2002 Zoster vaccine hzv l bolivar for subcutaneous use ZOSTER (SHINGLES) VACCINE (1 of 2) [facility] Start: 1997 Colonoscopy COLORECTAL CAN CER SCREENING DISCUSSION [facility] Start: 1997 Screening for malign ant neoplasm of colon COLORECTAL CANCER SCREENING DISCUSSION [facility] Start: 1992 Fasting lipid profile LIPID SCREENIN G [facility] Start: 1992 Lipid panel LIPID SCREENING [facility] Start: 1992 Screening for malign ant neoplasm of breast MAMMOGRAM SCREENING DISCUSSION [facility] Start: 1992 Screening mammography MAMMOGRA M SCREENING DISCUSSION [facility] Start: 1973 Screening for malign ant neoplasm of cervix CERVICAL CANCER SCREENING DISCUSSION [facility] Start: 1971 Third diphtheria, tetanus and acellular pertussis (DTaP) vaccination TDAP (ADULT) [facility] Start: 1970 Tetanus vaccination [facility] Start: 1952 Hepatitis C antibody , confirmatory test HEPATITIS C VIRUS SCREENING [facility] Start: 1952 Hepatitis C screening HEPATITI S C VIRUS SCREENING [facility] Start: 1950 Screening for osteoporosis DEXA SCAN DISCUSSION [facility] End: 11-14-2021 Radiography of hip [facility] Work Phone: Comment on above: One Time for 1 Occur rences starting 11/14/2021 until 11/14/2021 Skeletal X-ray of pe lvis and hip XR HIP WITH PELVIS LEFT Imaging Routine Hx of total hip arthroplasty, left 12/07/2021 1:53 PM [facility] X-ray of pe lvis and hip XR HIP WITH PELVIS LEFT Imaging Routine Hx of total hip arthroplasty, left 01/16/2022 9:52 AM EST [facility] SURGICAL PATHOLOGY REQUEST SURGICAL PATHOLOGY REQUEST Surg Path Routine Primary osteoarthritis of left hip Release Upon Ordering for 1 Occurrences starting 11/14/2021 [facility] Comment on above: Release Upon Orderin g for 1 Occurrences starting 11/14/2021 XR Pelvis and Hip - left Views XR HIP WITH PELVIS LEFT Imaging Routine Hx of total hip arthroplasty, left 04/06/2022 8:24 AM EDT [facility] Work Phone: XR Pelvis and Hip - left Views XR HIP WITH PELVIS LEFT Imaging Routine Hx of total hip arthroplasty, left 08/01/2022 10:18 AM EDT [facility] XR Pelvis and Hip - left Views XR HIP WITH PELVIS LEFT Imaging Routine Hx of total hip arthroplasty, left 11/27/2022 2:46 PM EST [employer] XR Pelvis and Hip - left Views XR HIP WITH PELVIS LEFT Imaging Routine Primary osteoarthritis of left hip 12/12/2023 3:34 PM EST [facility] Immunizations Immunization Date Immunization Notes Care Provider Cherelle santo 09-06-2021 influenza virus vaccine, unspecified formulation Jeyson Lew MD Work Phone: [facility] 03-17-2021 COVID-19 mRNA-1273 (Moderna) II Tyshawn Hickman Work Phone: [facility] 02-17-2021 COVID-19 mRNA-1273 (Moderna) II Tyshawn Hickman Work Phone: [facility] 08-31-2020 influenza virus vaccine, unspecified formulation [facility] Payers Date Payer Category Payer Medicare [id number] 2021 Self-pay [id number] 2021 Medicare MEDICARE MEDICAR E A AND B [id number] 2021-Present [address] [place] [address] [id number]. [id number] 2021 Medicare [id number]. [id number] 2019 Unknown GENERIC PAYOR ME DICARE SUPPLEMENT [id number] 2019-Present [phone] [address] [place] [address] [id number] [id number]. [id number] 2019 Unknown GENERIC PAYOR ME DICARE SUPPLEMENT [id number] 2019-Present [phone] [place] [address] 1.2.840.782987.1.13.172.2.7.3. [id number] 1959 Medicare [id number] 2.16.840.1.293977.19 1959 Medicare [id number] 1959 Unknown [id number] 2.16.840.1.610394.19 1959 Unknown [id number] 1952 Unknown [id number] 2.16.840.1.494817.3.579.2.593 1952 Unknown [id number] 2.16.840.1.083696.3.579.2.593 1952 Unknown [id number] 2.16.840.1.617612.3.579.2.593 1952 Unknown [id number] 2.16.840.1.007934.3.579.2.593 1952 Unknown [id number] 2.16.840.1.724101.3.579.2.593 1952 Unknown [id number] 2.16.840.1.206689.3.579.2.593 1952 Unknown [id number] 2.16.840.1.117646.3.579.2.593 1952 Unknown [id number] 2.16.840.1.629111.3.579.2.727 1952 Unknown [id number] 2.16.840.1.998032.3.579.2.983 1952 Unknown [id number] 2.16.840.1.816301.3.579.2.983 1952 Unknown [id number] 2.16.840.1.747140.3.579.2.983 1952 Unknown [id number] 2.16.840.1.792419.3.579.2.983 1952 Unknown [id number] 2.16.840.1.327109.3.579.2.1259 1952 Unknown [id number] 2.16.840.1.370877.3.579.2.1259 1952 Unknown [id number] 2.16.840.1.416895.3.579.2.1259 1952 Unknown [id number] 2.16.840.1.480541.3.579.2.1259 1952 Unknown [id number] 2.16.840.1.620298.3.579.2.1259 1952 Unknown [id number] 2.16.840.1.238193.3.579.2.1259 1952 Unknown [id number] 2.16.840.1.788477.3.579.2.1259 Unknown Estelle BC/ [id number] Unknown [id number] 2.16.840.1.256467.3.579.2.531 Social History Date Type Detail Facility Start: 08-10-2021 End: 11-27-2022 Tobacco smoking status NHIS Ex-smoker [facility] Start: 08-10-2021 End: 11-27-2022 Tobacco use and exposure Smokeless tobacco non-user [facility] Start: 11-02-2021 End: 12-12-2023 Alcohol intake Lifetime non-drinker (finding) [facility] Start: 08-10-2021 History SDOH Alcohol Frequency 1 [facility] Start: 08-10-2021 End: 11-27-2022 Tobacco Comment Quit 1999 [facility] Start: 1950 Sex Assigned At Not on file A [facility] Exposure to SARS-CoV -2 (event) Not sure [facility] Start: 12-12-2023 Sex Assigned At F [facility] History of tobacco use Current smoker [facility] Start: 1950 Sex Assigned At Female F [facility] Tobacco smoking status No Smokin g Status Entered [facility] Start: 12-12-2023 History of Social function [facility] Medical Equipment Procedure Code Equipment Code Equipment Original Text Equipment Identifier Dates [place] Gripton Acetabular Shell Sector 54mm Od [id number] Start: 11-14-2021 Altrx Polyethyle ne Acetabular Liner Neutral 36mm Id 54 Od [id number] Start: 11-14-2021 Femoral Stem Taper [employer] Duofix Hip Prosthesis Cementless Size 6 Std Collar [id number] Start: 11-14-2021 Biolox Delta Cer amic Femoral Head +1.5 36mm Gracie 11/14 Taper [id number] Start: 11-14-2021 Suture [place], [employer] [place] Ft, Vented With 1.3mm White/Blue And White/Black Suture Tape [id number] Start: 11-14-2021 Suture [place], Biocompositive Swivelock C, Closed Eyelet With #2 Fiberwire, 4.75 X 19.1mm [id number] Start: 11-14-2021 Suture [place], Biocompositive Swivelock C, Closed Eyelet With #2 Fiberwire, 4.75 X 19.1mm [id number] Start: 11-14-2021 Clinical Notes 10-03-2021 to 12-12-2023 Genevieve Simeon - 12/12/2023 3:30 PM John eLw MD - 12/12/2023 3:30 PM EST Note [...] 12/12/2023 3:42 PM Patient: Siria Petty MR#: [id number] : 1950 Age: 73 y.o. Referring Physician: [...] Take 1 tablet by mouth daily. nystatin-triamcinolone 068329-5.1 UNIT/GM-% Ointment as needed. omeprazole 20 MG [...] 12/12/2023 3:42 PM Patient: Siria Petty MR#: [id number] : 1950 Age: 73 y.o. Referring Physician: Self, Self Insurance: Payor: MEDICARE [employer] HMO / [facility] / Product Type: *No Product type* [...] Take 1 tablet by mouth daily. nystatin-triamcinolone 510743-4.1 UNIT/GM-% Ointment as needed. omeprazole 20 MG [...] No Known Allergies. documented in this encounter [facility] 10-08-2023 Evaluation note Encounter Date Diagnosis [...] - G25.81) Not currently an active problem [employer] Other 12-27-2022 History of Present illness Narrative* Chrystal Geovanny - 11/27/2022 3:20 PM EST Ortho Nurse - Established Patient Intake Room#: 5 Date: 11/27/2022 3:07 PM Patient: Siria Petty MR#: [id number] : 1950 Age: 72 y.o. 1yr L [...] Take 1 tablet by mouth daily. nystatin-triamcinolone 850297-7.1 UNIT/GM-% Ointment as needed. omeprazole 20 MG [...] by mouth daily., Disp: , Rfl: nystatin-triamcinolone 142189-8.1 UNIT/GM-% Ointment, as needed. , Disp: , [...] has No Known Allergies. * Doug Sahni APRN-DATABASE SECURITY ADMINISTRATOR - 11/27/2022 3:20 PM EST HPI: Patient [...] 11/27/2022 3:07 PM Patient: Siria Petty MR#: [id number] : 1950 Age: 72 y.o. 1yr L [...] Take 1 tablet by mouth daily. nystatin-triamcinolone 068964-8.1 UNIT/GM-% Ointment as needed. omeprazole 20 MG [...] by mouth daily., Disp: , Rfl: nystatin-triamcinolone 240747-3.1 UNIT/GM-% Ointment, as needed. , Disp: , [...] has No Known Allergies. documented in this [facility]09-07-2022 History of Present illness Narrative* Heather [...] by mouth daily., Disp: , Rfl: nystatin-triamcinolone 315104-0.1 UNIT/GM-% Ointment, as needed. , Disp: , [...] in about 2 months. documented in this [facility]08-31-2022 History of Present illness Narrative* Jaswant Baldwin LPN - 08/01/2022 10:30 AM EDT Ortho Nurse - Established Patient Intake Room#: 3 Left TILA 11-14-21, had a fall on 05-10-22 went to [facility] and was told everything looked good and was given pain medication which she is done with. Before fall she states she was doing great with occasional pain of 2, since her fall the pain radiates down to her foot and is a 10 Date: 08/01/2022 11:26 AM Patient: Siria Petty MR#: [id number] : 1950 Age: 72 y.o. Referring Physician: [...] Take 1 tablet by mouth daily. nystatin-triamcinolone 182691-1.1 UNIT/GM-% Ointment as needed. acetaminophen 325 MG [...] by mouth daily., Disp: , Rfl: nystatin-triamcinolone 750829-3.1 UNIT/GM-% Ointment, as needed. , Disp: , [...] had a fall on 05-10-22 went to [facility] and was told everything looked good and was given pain medication which she is done with. Before fall she states she was doing great with occasional pain of 2, since her fall the pain radiates down to her foot and is a 10 Date: 08/01/2022 11:26 AM Patient: Siria Petty MR#: [id number] : 1950 Age: 72 y.o. Referring Physician: [...] Take 1 tablet by mouth daily. nystatin-triamcinolone 334509-4.1 UNIT/GM-% Ointment as needed. acetaminophen 325 MG [...] by mouth daily., Disp: , Rfl: nystatin-triamcinolone 932415-2.1 UNIT/GM-% Ointment, as needed. , Disp: , [...] has No Known Allergies. [facility] History of Present illness Narrative* Jaswant Baldwin LPN - 04/06/2022 9:10 AM EDT Ortho Nurse - Established Patient Intake Room#: 1 4+ month left TILA A/L, some pain of 2, doing great Date: 04/06/2022 9:49 AM Patient: Siria Petty MR#: [id number] : 1950 Age: 71 y.o. Referring Physician: [...] Take 1 tablet by mouth daily. nystatin-triamcinolone 571690-8.1 UNIT/GM-% Ointment as needed. acetaminophen 325 MG [...] by mouth daily., Disp: , Rfl: nystatin-triamcinolone 820237-5.1 UNIT/GM-% Ointment, as needed. , Disp: , [...] 04/06/2022 9:49 AM Patient: Siria Petty MR#: [id number] : 1950 Age: 71 y.o. Referring Physician: [...] Take 1 tablet by mouth daily. nystatin-triamcinolone 051031-1.1 UNIT/GM-% Ointment as needed. acetaminophen 325 MG [...] by mouth daily., Disp: , Rfl: nystatin-triamcinolone 836548-9.1 UNIT/GM-% Ointment, as needed. , Disp: , [...] has No Known Allergies. documented in this [facility]02-09-2022 History of Present illness Narrative* Doug Sahni APRN-DATABASE SECURITY ADMINISTRATOR - 01/10/2022 2:20 PM EST SUBJECTIVE: Siria [...] scheduled 4-month appointment or sooner as necessary. (DOC:[id number]) I have reviewed the findings of the clinical account support associate and agree with their assessment. EDY Parra No notes on file documented in this [facility]01-06-2022 History of Present illness Narrative* EDY [...] visit. All pertinant portions of the clinical account support associate documentation was reviewed. EDY Parra I have reviewed the findings of the clinical account support associate and agree with their assessment. EDY Parra Ortho Nurse Established Patient Intake Room#: 4 Date: 12/07/2021 2:25 PM Patient: Siria Petty MR#: [id number] : 1950 Age: 71 y.o. 3wk S/P [...] Take 1 tablet by mouth daily. nystatin-triamcinolone 540703-9.1 UNIT/GM-% Ointment as needed. omeprazole 20 MG [...] by mouth daily., Disp: , Rfl: nystatin-triamcinolone 746594-7.1 UNIT/GM-% Ointment, as needed. , Disp: , [...] 12/07/2021 2:25 PM Patient: Siria Petty MR#: [id number] : 1950 Age: 71 y.o. 3wk S/P [...] Take 1 tablet by mouth daily. nystatin-triamcinolone 090852-0.1 UNIT/GM-% Ointment as needed. omeprazole 20 MG [...] by mouth daily., Disp: , Rfl: nystatin-triamcinolone 595097-5.1 UNIT/GM-% Ointment, as needed. , Disp: , [...] has No Known Allergies. documented in this [facility]12-14-2021 Nurse Note* Yadira Salas RN - [...] - 11/14/2021 4:30 PM EST Doug Sahni DATABASE SECURITY ADMINISTRATOR notified of Hgb Hct results,no further orders. * Yadira Salas RN - 11/14/2021 3:30 PM EST Took 50% of regular tray w/o nausea. * Nicole Laurent RN - 11/14/2021 12:47 PM EST Patient transferred to PACU via bed with this nurse and EXTRUSION ENGINEER. Bedside report given to ARTEMIO Quinones. * Nicole Laurent RN - 11/14/2021 11:36 AM EST OR room temp: 66.3 OR room humidity: 50 documented in this [facility]12-14-2021 History of Present illness Narrative* Trisha [...] Transfer Skill: Sit To Stand, Rehab Eval Wright (Sit-Stand Transfers) contact guard Physical Assist/Nonphysical Assist: Sit/Stand 1 person assist Weight-Bearing Restrictions: Sit/Stand toe touch weight-bearing Assistive Device For Transfer: Sit/Stand 2 wheeled walker Gait Skills, PT Eval Level of Wright: Gait contact guard Physical Assist/Nonphysical Assist: Gait 1 person assist Weight-Bearing Restrictions: Gait toe touch weight-bearing Assistive Device For Transfer: Gait 2 wheeled walker Gait Distance 50 feet Gait Analysis, PT Eval Gait Pattern Used swing-to gait Stair Negotiation Wright Level: Stair Negotiation contact guard assist Physical [...] Supine to Sit, Rehab Eval Level of Wright: Supine/Sit stand-by assist Physical Assist/Nonphysical Assist: Supine/Sit 1 person assist;verbal cues Transfer Skill: Sit to Stand, Rehab Eval Level of Wright: Sit/Stand contact guard Physical Assist/Nonphysical Assist: Sit/Stand 1 person assist Weight-Bearing Restrictions: Sit/Stand touch down weight-bearing Assistive Device for Transfer: Sit/Stand wheeled walker Upper Body Dressing Level of Wright independent Physical Assist/Nonphysical Assist set-up required Lower Body Dressing Level of Wright moderate assist (50% patients effort) Physical Assist/Nonphysical Assist 1 person assist (including TONIA hose) Assistive Device clinical cytogenetics director General Therapy Interventions Planned Therapy Interventions (OT Eval) ADL retraining;balance training;transfer training Clinical Impression Co-evaluation/co-treatment performed? Yes, combination of simultaneous billable and non-billable treatment Patient Instruction Pt instructed on LB dressing techniques utilizing clinical cytogenetics director to rodo underwear andshorts in sitting and [...] (OT Eval) bathing equipment;dressing equipment;raised toilet seat;tub bench;clinical cytogenetics director Today's Treatment Included Pt demonstrates moderate to [...] hygiene training Therapist Information License # [id number] 1. Pt will complete LB dressing min [...] 0.86 Docusate 100mg 4.00 APAP 325mg 4.00 [place] 5-325mg 1.80 Tramadol 50mg 1.35 Omeprazole 20mg 2.90 Ondansetron 4mg 4.00 Total $ 20.91 Patient Education Counseled patient on appropriate use and side effects of medications. Medications to be picked up in pharmacy Thaddeus Wallis PharmD [facility] [phone] * OSMEL Frazier - 11/14/2021 3:31 PM EST SENIOR IOS DEVELOPER met with patient and spouse. OSMEL explained that it was recommended for the patient to dischargehome with home health services for CBC lab draw on 11/16 as well as 1 week of therapy for safety precaution awareness. SENIOR IOS DEVELOPER was able to arrange services through [facility]. SENIOR IOS DEVELOPER explained they would contact her to arrange [...] Supine to Sit, Rehab Eval Level of Wright: Supine/Sit minimum assist (75% patients effort) Physical Assist/Nonphysical Assist: Supine/Sit 1 person assist Transfer Skill: Sit To Stand, Rehab Eval Wright (Sit-Stand Transfers) contact guard Physical Assist/Nonphysical Assist: Sit/Stand 1 person assist Weight-Bearing Restrictions: Sit/Stand toe touch weight-bearing Assistive Device For Transfer: Sit/Stand 2 wheeled walker Gait Skills, PT Eval Level of Wright: Gait contact guard Physical Assist/Nonphysical Assist: Gait [...] weight bearing status and use of leg recruiter manager. Pt performed ankle pumps and quad sets [...] given as rescue opiate. documented in this [facility]12-14-2021 Hospital Discharge instructions* Instructions* Raina Maurice [...] pillow between legs Hip Precautions: Contact Office ([phone]) if: > Any falls or injuries > [...] [place] office is closed, you may call [phone] where you will be connected with an after hours orthopedic nurse that will be able to answer your questions. [facility] [id number] Miscellaneous Notes* Nursing Notes - Joni Ly RN - 11/14/2021 1:14 PM EST Discharged from PACU in stable condition at this time. Transported via cart to [facility]. Cart placed in lowest position. Call light within reach. Pulse ox monitor on pt with alarms set. Report radha Salas Rn. [facility] [employer] [id number] Instructions* Patient Instructions* Rocio Peña RN - 11/06/2021 7:[address] Lew's office will call you for your arrival time, 1-2 business days before your scheduled surgery. Please review your surgery checklist and bring your guide or booklet the day of surgery. Pre-Admission Testing Dept. [phone] Call if you have any changes in [...] Yellow - take the day of surgery [place] - hold according to the doctor's instructions [...] YOUR SURGERY Last Dose: Date Time nystatin-triamcinolone 528478-1.1 UNIT/GM-% Ointment NEEDED CONTINUE, but DO NOT take the morning of surgery. Last Dose: Date Time documented in this [facility]11-02-2021 Evaluation note* Encounter Date Diagnosis Assessment [...] fatigue, but may also predispose to RLS [employer] Other Evaluation + Plan note No data available for this section [facility]* Diagnosis Preop testing- Primary Preoperative examination, unspecified Primary osteoarthritis of left hip Primary localized osteoarthrosis, pelvic region and thigh [facility] Preop testing- Primary Preoperative examination, unspecified Abnormal coagulation profile Abnormal coagulation profile Encounter for preoperative screening laboratory testing for COVID-19 virus Primary osteoarthritis of left hip Primary localized osteoarthrosis, pelvic region and thigh Acute postoperative pain of left knee documented in this encounter [facility]* Diagnosis Hx of total hip arthroplasty, left- Primary Hx of total hip arthroplasty, left- Primary [facility]* Diagnosis Hx of total hip arthroplasty, left- Primary [facility] in this [facility]* Diagnosis Hx of total hip arthroplasty, left- Primary [facility] in [facility]* Diagnosis Hx of total hip arthroplasty, left- Primary Pain due to left hip joint prosthesis, sequela documented in this encounter [facility]* Diagnosis Trigger finger of left hand, unspecified finger- Primary documented in this encounter [facility]* Diagnosis Primary osteoarthritis of one hip, left- Primary documented in this [facility] SystemEvaluation noteNo assessment information availableMercy [facility] Work Phone: Evaluation note* Diagnosis Primary osteoarthritis of left hip- Primary Primary localized osteoarthrosis, pelvic region and thigh documented in this encounter [facility] SystemHistory general Narrative - Reported* Type Description Date Medical History COPD Medical History ADRIANNA Medical History diastolic CHF with preserved EF Medical History Type II diabetes diet controlled [employer] Other History of Present illness Narrative* Rashmi [...] HEARING AIDS OR ANY TROUBLE HEARING [place] DIFFICULTY SWALLOWING no DENTAL APPLIANCES OR PROBLEMS (dentures, partials, loose teeth, missing teeth, broken teeth, caps or crowns) Dentures full BETA DONNIE USE yes STEROIDS IN THE PAST 2 YEARS no HISTORY OF BLOOD TRANSFUSION/REACTION no CULTURAL OR BUDDHIST BELIEFS THAT WILL AFFECT CARE no DIETARY [...] verbalized understanding of instructions. [facility] No data available for this section [facility] note No data available for this section [facility]Reason for referral (narrative)* Consultation (Routine) - New Request Specialty Diagnoses / Procedures Referred By Arlet hall Referred To Contact Orthopaedics Diagnoses Hx of total hip arthroplasty, left Jeyson Lew MD [address] [place] [address] [phone] Serafin Calles MD [address] [place] [address] [phone] Referral ID Status Reason Start Date Expiration Date V isits Requested Visits Authorized [id number] New Request 08/01/2022 08/26/2023 1 1 * Medication Prior Authorization - Closed Specialty Diagnoses / Procedures Referred By Arlet hall Referred To Contact Jeyson Lew MD [address] [place] [address] [phone] Referral ID Status Reason Start Date Expiration Date Visits Re quested Visits Authorized [id number] Closed 1 1 * Adjunctive Therapy (Routine) - New Request Specialty Diagnoses / Procedures Referred By Arlet hall Referred To Contact Physical Therapy Diagnoses Hx of total hip arthroplasty, left Pain due to left hip joint prosthesis, sequela Jeyson Lew MD [address] [place] [address] [phone] Referral ID Status Reason Start Date Expiration Date V isits Requested Visits Authorized [id number] New Request 08/01/2022 08/26/2023 1 1 Scheduling Instructions . * Diagnostic X-Ray (Routine) - New Request Specialty Diagnoses / Procedures Referred By Contac t Referred To Contact Diagnoses Hx of total hip arthroplasty, left Procedures XR HIP WITH PELVIS LEFT Jeyson Lew MD [address] [place] [address] [phone] Referral ID Status Reason Start Date Expiration Date V isits Requested Visits Authorized [id number] New Request 07/20/2022 08/14/2023 1 1 [facility] for referral (narrative)* Consultation (Routine) - New Request Specialty Diagnoses / Procedures Referred By Contact Referred To Contact Physical Medicine & Rehabilitation Diagnoses Primary osteoarthritis of left hip Jeyson Lew MD [address] [place] [address] [phone] Pb Rosas DO [address] [place] [address] [phone] Referral ID Status Reason Start Date Expiration Date V isits Requested Visits Authorized [id number] New Request 12/12/2023 01/05/2025 1 1 * Diagnostic X-Ray (Routine) - New Request Specialty Diagnoses / Procedures Referred By Contac t Referred To Contact Diagnoses Primary osteoarthritis of left hip Procedures XR HIP WITH PELVIS LEFT Jeyson Lew MD [address] [place] [address] [phone] Referral ID Status Reason Start Date Expiration Date V isits Requested Visits Authorized [id number] New Request 12/12/2023 01/05/2025 1 1 [facility] for visit Narrative* Auth/Cert Specialty Diagnoses / Procedures Referred By Contac t Referred To Contact Diagnoses Primary osteoarthritis of left hip Primary osteoarthritis of left hip [M16.12] Procedures AR TOTAL HIP ARTHROPLASTY ARTHROPLASTY HIP TOTAL LATERAL APPROACH Jeyson Lew MD [address] [place] [address] [phone] Referral ID Status Reason Start Date Expiration Date Visits Re quested Visits Authorized [id number] 10/18/2021 1 1 [facility] Advance Directives No Advanced Directives Records [...] XR HIP WITH PELVIS LEFT Doug Sahni APRN-DATABASE SECURITY ADMINISTRATOR [address] [place] [address] Referral ID Status Reason Start Date Expiration Date V isits Requested Visits Authorized [id number] New Request 11/30/2021 12/25/2022 1 1 Referral ID Status Reason Start Date Expiration Date V isits Requested Visits Authorized [id number] New Request 01/16/2022 02/10/2023 1 1 Specialty Diagnoses / Procedures Referred By Contac t Referred To Contact Diagnoses Hx of total hip arthroplasty, left Procedures XR HIP WITH PELVIS LEFT Jeyson Lew MD [address] [place] [address] Referral ID Status Reason Start Date Expiration Date V isits Requested Visits Authorized [id number] New Request 03/30/2022 04/24/2023 1 1 Summary [...] XR HIP WITH PELVIS LEFT Doug Sahni APRN-DATABASE SECURITY ADMINISTRATOR [address] [place] [address] [phone] Referral ID Status Reason Start Date Expiration Date V isits Requested Visits Authorized [id number] New Request 11/30/2021 12/25/2022 1 1 Reason Comments Post Op Visit Specialty Diagnoses / Procedures Referred By Contac t Referred To Contact Diagnoses Hx of total hip arthroplasty, left Procedures XR HIP WITH PELVIS LEFT Jeyson Lew MD [address] [place] [address] [phone] Referral ID Status Reason Start Date Expiration Date V isits Requested Visits Authorized [id number] New Request 03/30/2022 04/24/2023 1 1 Referral ID Status Reason Start Date Expiration Date V isits Requested Visits Authorized [id number] New Request 07/20/2022 08/14/2023 1 1 Reason Comments Pain Reason Comments Consult Middle finger trigge ring Specialty Diagnoses / Procedures Referred By Contac t Referred To Contact Orthopaedics Diagnoses Hx of total hip arthroplasty, left Jeyson Lew MD [address] [place] [address] [phone] Serafin Calles MD [address] [place] [address] [phone] Referral ID Status Reason Start Date Expiration Date V isits Requested Visits Authorized [id number] New Request 08/01/2022 08/26/2023 1 1 Referral ID Status Reason Start Date Expiration Date V isits Requested Visits Authorized [id number] New Request 11/21/2022 12/16/2023 1 1 Reason Comments Follow-up Specialty Diagnoses / Procedures Referred By Contac t Referred To Contact Diagnoses Primary osteoarthritis of left hip Procedures XR HIP WITH PELVIS LEFT Jeyson Lew MD [address] [place] [phone] Referral ID Status Reason Start Date Expiration Date V isits Requested Visits Authorized [id number] New Request 12/12/2023 01/05/2025 1 1 Reason Comments Pain Care Teams (unrecognized sec tion and content) Refiner Operator Relationship Specialty Start Date End Date Tyshawn Hickman II, MD [address] [place] [address] PCP - General Internal Medicine 08/10/21 Refiner Operator Relationship Specialty Start Date End Date Tyshawn Hickman II, MD [address] [place] [address] PCP - General Internal Medicine 08/10/21 Refiner Operator Relationship Specialty Start Date End Date Tyshawn Hickman II, MD [address] [place] [address] PCP - General Internal Medicine 08/10/21 Refiner Operator Relationship Specialty Start Date End Date Tyshawn Hickman II, MD [address] [place] [address] PCP - General Internal Medicine 08/10/21 Refiner Operator Relationship Specialty Start Date End Date Tyshawn Hickman II, MD [address] [place] [address] PCP - General Internal Medicine 08/10/21 Refiner Operator Relationship Specialty Start Date End Date Tyshawn Hickman II, MD [address] [place] [address] PCP - General Internal Medicine 08/10/21 Refiner Operator Relationship Specialty Start Date End Date Tyshawn Hickman II, MD [address] [place] [address] PCP - General Internal Medicine 08/10/21 Refiner Operator Relationship Specialty Start Date End Date Tyshawn Hickman II, MD [address] [place] [address] PCP - General Internal Medicine 08/10/21 Refiner Operator Relationship Specialty Start Date End Date Tyshawn Hickman II, MD [address] [place] [address] PCP - General Internal Medicine 08/10/21 Refiner Operator Relationship Specialty Start Date End Date Tyshawn Hickman II, MD [address] [place] [address] PCP - General Internal Medicine 08/10/21 Refiner Operator Relationship Specialty Start Date End Date Tyshawn Hickman II, MD [address] [place], [place] [id number] PCP - General Internal Medicine 08/10/21 Team Status: Active Member Role Status Dates Tyshawn Hickman II MD Primary Care Provider Active Team Status: Inactive Member Role Status Dates Tyshawn Hickman II MD Primary Care Provider Active bP Sanabria MD Attending Provider Active Refiner Operator Relationship Specialty Start Date End Date Tyshawn Hickman II, MD [address] [place] [address] PCP - General Internal Medicine 08/10/21 Refiner Operator Relationship Specialty Start Date End Date Tyshawn Hickman II, MD [address] [place] [address] PCP - General Internal Medicine 08/10/21 Scheduled [...] Pre-op/Pre-Proc 0808 (Given - Provid er: Carlee Ivoyr RN) Continuous Medication Order 11/12/2021 11/13/2021 11/14/2021 [...] 2 g, Intravenous, Administer over 30 Minutes, SMOKING TOBACCO CUTTER OPERATOR TO PROCEDURE, 1 dose, Starting on Sat11/14/21 at 0754, Until Discontinued, Other, Pre-operative antibiotic, For 15 Minutes, Pre-op/Pre-Proc 1051 (Given - Provid er: Jessica Rosa, FELT FINISHING SUPERVISOR-EXTRUSION ENGINEER - Comment: PSR s/p negative test dose) [...] section and content) DATE CREATED AUTHOR 10/17/2022 [facility] dical Specialist DATE CREATED AUTHOR AUTHOR'S ORGANIZ ATION 03/08/2023 Dolores [facility] DATE CREATED AUTHOR AUTHOR'S ORGANIZ ATION 10/12/2023 [facility] DATE CREATED AUTHOR AUTHOR'S ORGANIZ ATION 12/06/2023 [facility] DATE CREATED AUTHOR AUTHOR'S ORGANIZ ATION 12/20/2023 [facility] DATE CREATED AUTHOR AUTHOR'S ORGANIZ ATION 03/12/2024 [facility] dical Specialists EPIC Goals (unrecognized section [...] BASED ON THE PRIMARY CLINICAL RECORDS. [facility] [employer]. provides no warranty or guarantee of the accuracy or completeness of information in this document.
[2024-08-17 08:52] VITALS: BP 148/68; PULSE 69; TEMP 36.2; O2SAT 99
[2024-08-17 09:04] LABS: Glucometer 109 mg/dL (74-106)
[2024-08-17 09:39] VITALS: BP 168/73; BP 172/72; PULSE 77; PULSE 80; O2SAT 93
--- NOTE | 2024-08-17 09:40 | W.PM.PROCNOT ---
Date of procedure: 08/17/24 Pre-op diagnosis: Pain due to left sacroiliitis Post-op diagnosis: same as pre-op Procedure: Procedure: Left sacroiliac joint injection Medications: Bupivacaine 0.25% 3cc, kenalog 40mg After informed consent was obtained, the patient was brought to the medical procedure unit and placed in the prone position, when a timeout was completed verifying correct patient, procedure, site, positioning, implant, and/or special equipment.? The skin overlying the area was prepped and draped in standard sterile fashion using alcohol.? A 25-gauge needle was inserted towards the left sacroiliac joint under direct fluoroscopic imaging.? Needle tip was advanced until the joint was encountered.? We instilled a total of 2 mL of solution.? Postoperatively needles were removed.? The patient tolerated the procedure well without complication.? The patient reported reduction in pain symptoms postoperatively. Anesthesia: Local Surgeon: Erich Terry Pathology: none sent Condition: stable Disposition: no change
[2024-08-17] MEDS: IOHEXOL 240 MG/ML - 10 ML VIAL INJ (09:41)
[2024-08-17] MEDS: BUPIVACAINE HCL 0.25% PF 25 MG/10 ML VIAL 5 ML INJ (09:41)
[2024-08-17] MEDS: TRIAMCINOLONE ACETONIDE 40 MG/ML VIAL INJ (09:42)
[2024-08-17] MEDS: LIDOCAINE HCL 2% 400 MG/20 ML MDV 15 ML INJ (09:42)
== END 2024-08-17 09:44 | disposition home or self-care (01) ==
LOC: SURGOUT 08:19
PROVIDERS: PCP Internal Medicine; Visit Provider Anesthesiology
DX: M46.1 Sacroiliitis, not elsewhere classified (principal); Z79.84 Long term (current) use of oral hypoglycemic drugs
CPT/HCPCS: 27096; 36415; 82948; J0665; J3301; Q9966

== ENCOUNTER 2024-08-26 12:46 | Outpatient (OUT) | payer MEDICARE, SELFPAY ==
--- OUTSIDE RECORDS SUMMARY | 2024-08-26 12:52 | XMS_ITS | CCD ---
Author Organization [facility] ion Partnership [facility] Care Team Providers Care Casting Operator Helper Name Role Phone Vick KRAUS MD, Tyshawn Primary Care Provider [phone] Pb [place]ria Vick KRAUS MD, Tyshawn Primary Care Provider [phone] ALEXANDRA BELCHER Consulting Unavailable VICK, DR LAMAR [...] Care Provider MD Pb Sanabria Attending Provider [phone] Pb [place]abria Attending Unavailable Pb Sanabria Admitting Unavailable Tyshawn Hickman Primary Care Unavailable TYSHAWN HICKMAN Primary Care Physician [phone] Timmis, Jose Cruz H Referring Unavailable Timmis, Jose Cruz H Attending Unavailable SusannesJose Cruz H Admitting Unavailable Vick KRAUS MD, Daniel Primary Care Provider [phone] JEYSON LEW Attending Unavailable ADALI, JEYSON Referring Unavailable VICK II, TYSHAWN Primary Care Unavailable ADALI, JEYSON Referring Unavailable HICKMAN II, TYSHAWN Primary Care Unavailable ADALI, JEYSON Attending Unavailable SELF, SELF Referring Unavailable HICKMAN II, TYSHAWN Primary Care Unavailable JEYSON LEW Attending Unavailable ADALI, JEYSON Referring Unavailable HICKMAN II, TYSHAWN Primary Care Unavailable ADALI, JEYSON Attending Unavailable TIMMIS, JOSE CURZ H Attending Unavailable VICK TYSHAWN B Attending Unavailable HICKMANTYSHAWN B Attending Unavailable HICKMAN, TYSHAWN B Attending Unavailable HICKMAN, TYSHAWN B Attending Unavailable LONNIEMIS, JOSE CRUZ H Attending Unavailable Allergies Allergy Classification Reported Allergen(s) Allergy Type Date of Onset Reaction(s) Facility (2 sources) Cat Hair Extract Drug Allergy 05-31-2023 [employer] [facility] Medications Current Medications Medication Drug Class(es) [...] acid 7540 MG / polyethylene glycol 3350 19629 MG / potassium chloride 1200 MG / sodium ascorbate 09555 MG / sodium chloride 3200 MG Powder for Oral Solution) / 1 (polyethylene glycol 3350 254930 MG / potassium chloride 1000 MG / [...] (14 sources) Polyene Antifungal, Corticosteroid nystatin-triamcinolo [place] 324881-1.1 UNIT/GM-% Ointment as needed. 0 Active omeprazole [...] Discharge) docusate sodium 50 mg / sennosides, halfway 8.6 mg oral tablet (1 source) Start: [...] elsewhere classified, initial encounter; Translations: [[facility] OT SHRP OB NOT ELSW CLASS INI] [...] Onset: 09-17-2022 Episodic Other aftercare (1 source) terminal system operator (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; Translations: [USP CURRENT USE OF ASPIRIN] Onset: 10-04-2022 Episodic Other aftercare (1 source) Other long term care social worker (current) drug therapy; Translations: [OTH USP CURRENT DRUG THERAPY] Onset: 10-04-2022 Episodic Other aftercare (1 source) terminal system operator (current) use of oral hypoglycemic drugs; Translations: [FILTER TENDER USE ORAL HYPOGLYCEMIC DX] Onset: 10-04-2022 Episodic [...] 024 CRP [Mass/Vol] 5.5 mg/L Normal 0-10 [facility] Comment on above: Performed By: #### E SR, CREACT #### Testing performed at [address] [address] CRP [Mass/Vol] 5.5 mg/L 0 - 10 MG/L [facility] ESRon 12-12-2023 ESR (Bld) [Velocity] 29 mm/h Normal 0-30 [facility] Comment on above: Performed By: #### E SR, CREACT #### Testing performed at [address] [address] SEDIMENTATION RATE, AUTOMATE Don 12-12-2023 ESR (Bld) [Velocity] 29 mm/h [employer] [facility] CT Maxillofacial w/o Contras ton [...] Abdul MD Transcribed by: YAZ Technologist: NATALY [facility] Consent for Treatmenton Consent for Treatment [id number] 0TIFF [facility] Physician Orderon 11-14-2023 Physician Order [id number] 0TIFF [facility] Physician Order [id number]#1.0 0TIFF [facility] MG MAMM SCREEN 3D NGOC CADon 02-28-2023 MG MAMM SCREEN 3D NGOC CAD Patient: SIRIA PETTY Exam Date: 02/28/2023 : 1950 Gender:F Ordering : DR TYSHAWN HICKMAN M.D. Admission #: [id number] Family : Order #: [id number] CLICK HERE TO VIEW EXAM RADIOLOGY REPORT [...] Treatments None Family Cancers None LOCATION: [facility] BREAST COMPOSITION: Almost entirely fatty. [...] Mcbride MD on 02/28/2023 at 14:23 Normal [facility] XR DEXA BONE DENSITYon 02-28 XR [...] by: PB MCBRIDE Date: 2023-02-28 15:36 Normal [facility] US Venous, Unilat, Lower Ext Righton [...] by Berhane Fernandez on 10/17/2022 1156 Normal [facility] [place] Case Repairer XR HIP LT 2 3V W PELVISon [...] by: SOPHIA STEWART Date: 2022-10-03 00:50 Normal [facility] UPPER EXTREMITY INJECTION: L long A1on [...] The patient was prepped with alcohol. [facility] Radiology Study observation (narrative) [facility] MG MAMM DX 3D RT CADon 06-07 MG MAMM DX 3D RT CAD Patient: SIRIA PETTY Exam Date: 06/07/2022 : 1950 Gender:F Ordering : DR TYSHAWN HICKMAN M.D. Admission #: [id number] Family : Order #: [id number] CLICK HERE TO VIEW EXAM RADIOLOGY REPORT [...] Treatments None Family Cancers None LOCATION: [facility] BREAST COMPOSITION: Almost entirely fatty. [...] M.D. on 06/07/2022 at 15:44 Normal [facility] CBC AUTO DIFFon 05-26-2022 BASO # 0.0 103/ul Normal 0.0-0.1 [facility] Comment on above: Performed By: #### C BC #### [facility] [address] [address] [address] Francesca Ortiz Basophils/100 WBC (Bld) 0.5 % Normal 0.2-2.0 [facility] Comment on above: Performed By: #### C BC #### [facility] [address] [address] [address] Francesca Ortiz EO # 0.1 103/ul Normal 0.0-0.7 [facility] Comment on above: Performed By: #### C BC #### [facility] [address] [place] [address] Dr. Francesca Ortiz Eosinophils/100 WBC (Bld) 1.9 % Normal 0.9-7.0 [facility] Comment on above: Performed By: #### C BC #### [facility] [address] [place] [address] Dr. Francesca Ortiz Erythrocyte distribution width (RBC) [Ratio] 13.5 % Normal 11.0-15.0 [facility] Comment on above: Performed By: #### C BC #### [facility] [address] [place] [address] Dr. Francesca Ortiz Hematocrit (Bld) [Volume fraction] 35.7 % Critically low 36.0-48.0 [facility] Comment on above: Performed By: #### C BC #### [facility] [address] [place] [address] Dr. Francesca Ortiz Hemoglobin (Bld) [Mass/Vol] 11.3 g/dL Critically low 12.0-16.0 [facility] Comment on above: Performed By: #### C BC #### [facility] [address] [place] [address] Dr. Francesca Ortiz IG # 0.01 10e3/ul Normal 0.00-0.03 [facility] Comment on above: Performed By: #### C BC #### [facility] [address] [place] [address] Dr. Francesca Ortiz IG % 0.2 % Normal 0.0-0.5 [facility] Comment on above: Performed By: #### C BC #### [facility] [address] [place] [address] Dr. Francesca Ortiz LYMPH # 1.7 103/ul Normal 1.2-3.8 [facility] Comment on above: Performed By: #### C BC #### [facility] [address] [place] [address] Dr. Francesca Ortiz Lymphocytes/100 WBC (Bld) 27.9 % Normal 20.5-60.0 [facility] Comment on above: Performed By: #### C BC #### [facility] [address] [place] [address] Dr. Francesca Ortiz MANUAL DIFF REQ NO Normal [facility] Comment on above: Performed By: #### C BC #### [facility] [address] [place] [address] Dr. Francesca Ortiz MCH (RBC) [Entitic mass] 29.9 pg Normal 26.7-34.0 [facility] Comment on above: Performed By: #### C BC #### [facility] [address] [place] [address] Dr. Francesca Ortiz MCHC (RBC) [Mass/Vol] 31.7 g/dL Normal 29.9-35.2 [facility] Comment on above: Performed By: #### C BC #### [facility] [address] [place] [address] Dr. Francesca Ortiz MCV (RBC) [Entitic vol] 94.4 fL Normal 81.0-99.0 [facility] Comment on above: Performed By: #### C BC #### [facility] [address] [place] [address] Dr. Francesca Ortiz MONO # 0.6 103/ul Normal 0.3-0.8 [facility] Comment on above: Performed By: #### C BC #### [facility] [address] [place] [address] Dr. Francesca Ortiz Monocytes/100 WBC (Bld) 9.9 % Normal 1.7-12.0 [facility] Comment on above: Performed By: #### C BC #### [facility] [address] [place] [address] Dr. Francesca Ortiz NEUT # 3.5 103/ul Normal 1.4-6.5 [facility] Comment on above: Performed By: #### C BC #### [facility] [address] [place] [address] Dr. Francesca Ortiz Neutrophils/100 WBC (Bld) 59.6 % Normal 43.0-75.0 [facility] Comment on above: Performed By: #### C BC #### [facility] [address] [place] [address] Dr. Francesca Ortiz Platelet mean volume (Bld) [Entitic vol] 10.7 fL Normal 9.5-13.5 [facility] Comment on above: Performed By: #### C BC #### [facility] [address] [place] [address] Dr. Francesca Ortiz PLT 131 103/ul Critically low 150-450 [facility] Comment on above: Performed By: #### C BC #### [facility] [address] [place] [address] Dr. Francesca Ortiz RBC 3.78 106/ul Critically low 4.20-5.40 [facility] Comment on above: Performed By: #### C BC #### [facility] [address] [place] [address] Dr. Francesca Ortiz WBC 5.9 103/ul Normal 4.0-11.0 [facility] Comment on above: Performed By: #### C BC #### [facility] [address] [place] [address] Dr. Francesca Ortiz PROF 14(COMP METB)on 022 Albumin [Mass/Vol] 3.6 g/dL Normal 3.4-5.0 [facility] Comment on above: Performed By: #### C MP #### [facility] [address] [place] [address] Dr. Francesca Ortiz Albumin/Globulin [Mass ratio] 1.1 {ratio} Normal [facility] Comment on above: Performed By: #### C MP #### [facility] [address] [address] [address] Francesca Ortiz ALP [Catalytic activity/Vol] 93 U/L Normal 46-116 [facility] Comment on above: Performed By: #### C MP #### [facility] [address] [address] [address] Francesca Ortiz ALT [Catalytic activity/Vol] 33 U/L Normal 14-59 [facility] Comment on above: Performed By: #### C MP #### [facility] [address] [address] [address] Francesca Ortiz Anion gap [Moles/Vol] 13.2 mmol/L Normal [facility] Comment on above: Performed By: #### C MP #### [facility] [address] [place] [address] Dr. Francesca Ortiz AST [Catalytic activity/Vol] 34 U/L Normal 15-37 [facility] Comment on above: Performed By: #### C MP #### [facility] [address] [place] [address] Dr. Francesca Ortiz Bilirubin [Mass/Vol] 0.5 mg/dL Normal 0.2-1.0 [facility] Comment on above: Performed By: #### C MP #### [facility] [address] [place] [address] Dr. Francesca Ortiz Calcium [Mass/Vol] 9.0 mg/dL Normal 8.5-10.1 [facility] Comment on above: Performed By: #### C MP #### [facility] [address] [place] [address] Dr. Francesca Ortiz Chloride [Moles/Vol] 104 mmol/L Normal 98-107 [facility] Comment on above: Performed By: #### C MP #### [facility] [address] [address] [address] Francesca Ortiz CO2 [Moles/Vol] 27.2 mmol/L Normal 21.0-32.[address] [facility] Comment on above: Performed By: #### C MP #### [facility] [address] [address] [address] Francesca Ortiz Creatinine [Mass/Vol] 0.92 mg/dL Normal 0.55-1.02 [facility] Comment on above: Performed By: #### C MP #### [facility] [address] [address] [address] Francesca Ortiz EGFR-AF ARMENIAN >60 Normal >=[address] [facility] Comment on above: Performed By: #### C MP #### [facility] [address] [address] [address] Francesca Ortiz EGFR-NON AF ARMENIAN =60 Normal >=60 [facility] Comment on above: Performed By: #### C MP #### [facility] [address] [place] [address] Dr. Francesca Ortiz Globulin (S) [Mass/Vol] 3.4 g/dL Normal [facility] Comment on above: Performed By: #### C MP #### [facility] [address] [place] [address] Dr. Francesca Ortiz Glucose [Mass/Vol] 113 mg/dL Critically high 74-106 [facility] Comment on above: Performed By: #### C MP #### [facility] [address] [place] [address] Dr. Francesca Ortiz Potassium [Moles/Vol] 4.4 mmol/L Normal 3.5-5.1 [facility] Comment on above: Performed By: #### C MP #### [facility] [address] [place] [address] Dr. Francesca Ortiz Protein [Mass/Vol] 7.0 g/dL Normal 6.4-8.2 [facility] Comment on above: Performed By: #### C MP #### [facility] [address] [place] [address] Dr. Francesca Ortiz Sodium [Moles/Vol] 140 mmol/L Normal 136-145 [facility] Comment on above: Performed By: #### C MP #### [facility] [address] [place] [address] Dr. Francesca Ortiz Urea nitrogen [Mass/Vol] 17.0 mg/dL Normal 7.0-18.0 [facility] Comment on above: Performed By: #### C MP #### [facility] [address] [place] [address] Dr. Francesca Ortiz Urea nitrogen/Creatinine [Mass ratio] 18.5 mg/mg Normal [facility] Comment on above: Performed By: #### C MP #### [facility] [address] [place] [address] Dr. Francesca Ortiz XR HIP LT 2 [...] LUKE BLACKWOOD Date: 2022-05-26 15:55 Normal [facility] CBC AUTO DIFFon 05-10-2022 BASO # 0.0 103/ul Normal 0.0-0.1 [facility] Comment on above: Performed By: #### C BC #### [facility] [address] [place] [address] Dr. Francesca Ortiz Basophils/100 WBC (Bld) 0.4 % Normal 0.2-2.0 [facility] Comment on above: Performed By: #### C BC #### [facility] [address] [place] [address] Dr. Francesca Ortiz EO # 0.1 103/ul Normal 0.0-0.7 [facility] Comment on above: Performed By: #### C BC #### [facility] [address] [place] [address] Dr. Francesca Ortiz Eosinophils/100 WBC (Bld) 1.8 % Normal 0.9-7.0 [facility] Comment on above: Performed By: #### C BC #### [facility] [address] [place] [address] Dr. Francesca Ortiz Erythrocyte distribution width (RBC) [Ratio] 13.9 % Normal 11.0-15.0 [facility] Comment on above: Performed By: #### C BC #### [facility] [address] [place] [address] Dr. Francesca Ortiz Hematocrit (Bld) [Volume fraction] 36.8 % Normal 36.0-48.0 [facility] Comment on above: Performed By: #### C BC #### [facility] [address] [place] [address] Dr. Francesca Ortiz Hemoglobin (Bld) [Mass/Vol] 11.7 g/dL Critically low 12.0-16.0 [facility] Comment on above: Performed By: #### C BC #### [facility] [address] [place] [address] Dr. Francesca Ortiz IG # 0.01 10e3/ul Normal 0.00-0.03 [facility] Comment on above: Performed By: #### C BC #### [facility] [address] [place] [address] Dr. Francesca Ortiz IG % 0.2 % Normal 0.0-0.5 [facility] Comment on above: Performed By: #### C BC #### [facility] [address] [place] [address] Dr. Francesca Ortiz LYMPH # 1.6 103/ul Normal 1.2-3.8 [facility] Comment on above: Performed By: #### C BC #### [facility] [address] [place] [address] Dr. Francesca Ortiz Lymphocytes/100 WBC (Bld) 31.5 % Normal 20.5-60.0 [facility] Comment on above: Performed By: #### C BC #### [facility] [address] [place] [address] Dr. Francesca Ortiz MANUAL DIFF REQ NO Normal [facility] Comment on above: Performed By: #### C BC #### [facility] [address] [place] [address] Dr. Francesca Ortiz MCH (RBC) [Entitic mass] 30.0 pg Normal 26.7-34.0 [facility] Comment on above: Performed By: #### C BC #### [facility] [address] [place] [address] Dr. Francesca Ortiz MCHC (RBC) [Mass/Vol] 31.8 g/dL Normal 29.9-35.2 [facility] Comment on above: Performed By: #### C BC #### [facility] [address] [place] [address] Dr. Francesca Ortiz MCV (RBC) [Entitic vol] 94.4 fL Normal 81.0-99.0 [facility] Comment on above: Performed By: #### C BC #### [facility] [address] [place] [address] Dr. Francesca Ortiz MONO # 0.6 103/ul Normal 0.3-0.8 [facility] Comment on above: Performed By: #### C BC #### [facility] [address] [place] [address] Dr. Francesca Ortiz Monocytes/100 WBC (Bld) 11.0 % Normal 1.7-12.0 [facility] Comment on above: Performed By: #### C BC #### [facility] [address] [place] [address] Dr. Francesca Ortiz NEUT # 2.8 103/ul Normal 1.4-6.5 [facility] Comment on above: Performed By: #### C BC #### [facility] [address] [place] [address] Dr. Francesca Ortiz Neutrophils/100 WBC (Bld) 55.1 % Normal 43.0-75.0 [facility] Comment on above: Performed By: #### C BC #### [facility] [address] [place] [address] Dr. Francesca Ortiz Platelet mean volume (Bld) [Entitic vol] 11.0 fL Normal 9.5-13.5 [facility] Comment on above: Performed By: #### C BC #### [facility] [address] [address] [address] Francesca Ortiz PLT 136 103/ul Critically low 150-450 [facility] Comment on above: Performed By: #### C BC #### [facility] [address] [address] [address] Francesca Ortiz RBC 3.90 106/ul Critically low 4.20-5.40 [facility] Comment on above: Performed By: #### C BC #### [facility] [address] [address] [address] Francesca Ortiz WBC 5.1 103/ul Normal 4.0-11.0 [facility] Comment on above: Performed By: #### C BC #### [facility] [address] [address] [address] ABD/PELV W CONon [...] CHEN ZAMORANO Date: 2022-05-10 15:30 Normal [facility] PROF CHEM 8 (BAS METB)on Anion gap [Moles/Vol] 9.9 mmol/L Normal [facility] Comment on above: Performed By: #### B MP #### [facility] [address] [place] [address] Dr. Francesca Ortiz Calcium [Mass/Vol] 9.5 mg/dL Normal 8.5-10.1 [facility] Comment on above: Performed By: #### B MP #### [facility] [address] [address] [address] Francesca Ortiz Chloride [Moles/Vol] 104 mmol/L Normal 98-107 [facility] Comment on above: Performed By: #### B MP #### [facility] [address] [address] [address] Francesca Ortiz CO2 [Moles/Vol] 27.2 mmol/L Normal 21.0-32.0 [facility] Comment on above: Performed By: #### B MP #### [facility] [address] [address] [address] Francesca Ortiz Creatinine [Mass/Vol] 0.88 mg/dL Normal 0.55-1.02 [facility] Comment on above: Performed By: #### B MP #### [facility] [address] [address] [address] Francesca Ortiz EGFR-AF ARMENIAN >60 Normal >=60 [facility] Comment on above: Performed By: #### B MP #### [facility] [address] [address] [address] Francesca Ortiz EGFR-NON AF ARMENIAN >60 Normal >=60 [facility] Comment on above: Performed By: #### B MP #### [facility] [address] [address] [address] Francesca Ortiz Glucose [Mass/Vol] 111 mg/dL Critically high 74-106 [facility] Comment on above: Performed By: #### B MP #### [facility] [address] [address] [address] Francesca Ortiz Potassium [Moles/Vol] 4.1 mmol/L Normal 3.5-5.1 [facility] Comment on above: Performed By: #### B MP #### [facility] [address] [address] [address] Francesca Ortiz Sodium [Moles/Vol] 137 mmol/L Normal 136-145 [facility] Comment on above: Performed By: #### B MP #### [facility] [address] [address] [address] Francesca Ortiz Urea nitrogen [Mass/Vol] 17.0 mg/dL Normal 7.0-18.0 [facility] Comment on above: Performed By: #### B MP #### [facility] [address] [address] [address] Francesca Ortiz Urea nitrogen/Creatinine [Mass ratio] 19.3 mg/mg Normal [facility] Comment on above: Performed By: #### B MP #### [facility] [address] [address] [address] Francesca Ortiz GLUCOSE (POC DEVICE)on 11-14 GLUCOSE, POINT OF CARE 169 [facility] Interpretation and review of laboratory results Abnormal [facility] [id number] [facility] HEMOGLOBIN & HEMATOCRITon Hematocrit (Bld) [Volume fraction] 34.9 % Low 36.0 - 48.0 % [facility] Hemoglobin (Bld) [Mass/Vol] 11.2 g/dL Low [facility] Interpretation and review of laboratory results Abnormal [facility] NOVEL CORONAVIRUS LAB 1 - NA SOPHARYNGEALon 11-14-2021 NARRATIVE -1 This test was performed using isothermal GIO and has been approved as Emergency Use Authorization (EUA) for the qualitative detection vrQOVF-GeF-2 nucleic acid. [facility] SARS-CoV-2 (COVID-19) RNA GIO+probe Ql (Unsp spec) Not detected NOT DETECTED [facility] Comment on above: Negative results [...] patient is critically ill or clinically deteriorating. [facility] PROTIME-INRon 11-14-2021 INR Coag (PPP) [Relative time] 1.15 {INR} High [facility] Comment on above: 2.0-3.0 THERAPEUTIC RANGE 2.5-3.5 MECHANICAL VALVE RANGE Interpretation and review of laboratory results Abnormal [facility] PT Coag (PPP) [Time] 14.9 s High [facility] TYPE AND SCREEN - POSSIBLE T RANSFUSIONon 11-14-2021 ABO and Rh group Nom (Bld ) Positive [facility] ARM BAND NUMBER [id number] [facility] Blood group antibody screen Ql Negative [facility] EXPIRATION DATE 11/17/2021,7260 [facility] XR PELVIS AP ONLYon 11-14-20 21 IMPRESSION: [...] or dislocations. IMPRESSION IMPRESSION: Routine postoperative changes. [facility] Radiology Study observation (narrative) [facility] XR PELVIS AP ONLYOrdered By: Mohini Ramirez on 11-14-2021 [facility] Work Phone: Complete Blood Counton 11-07 Erythrocyte distribution width (RBC) [Ratio] 17.0 % High 11.0-15.0 [facility] [place] Case [employer]r Comment on above: Performed By: #### C BC #### [facility] [address], [place] [id number] Hematocrit (Bld) [Volume fraction] 37.3 % Normal 35.0-47.0 [facility] [place] [employer] Comment on above: Performed By: #### C BC #### [facility] [address], [place] [id number] Hemoglobin (Bld) [Mass/Vol] 11.6 g/dL Normal 11.6-15.5 [facility] [place] [employer] Comment on above: Performed By: #### C BC #### [facility] [address], [place] [id number] MCH (RBC) [Entitic mass] 28.6 pg Normal 27.0-33.0 [facility] [place] [employer] Comment on above: Performed By: #### C BC #### [facility] [address], [place] [id number] MCHC (RBC) [Mass/Vol] 31.1 g/dL Low 32.0-36.0 [facility] [place] [employer] Comment on above: Performed By: #### C BC #### [facility] [address], [place] [id number] MCV (RBC) [Entitic vol] 92 fL Normal 80-100 [facility] [place] [employer] Comment on above: Performed By: #### C BC #### [facility] [address], [place] [id number] Platelet mean volume (Bld) [Entitic vol] 11.10 fL Normal 7.50-12.50 [facility] [place] [employer] Comment on above: Performed By: #### C BC #### [facility] [address], [place] [id number] Platelets (Bld) [#/Vol] 155 10*3/uL Normal 140-400 [facility] Specialist Comment on above: Performed By: #### C BC #### [facility] [address], [place] [id number] RBC (Bld) [#/Vol] 4.06 10*6/uL Normal 3.90-5.20 [facility] Specialist Comment on above: Performed By: #### C BC #### [facility] [address], [place] [id number] RDW-SD 57.8 fL High 37.0-50.0 [facility] Comment on above: Performed By: #### C BC #### [facility] [address], [place] [id number] WBC (Bld) [#/Vol] 5.6 10*3/uL Normal 3.8-11.0 [facility] Comment on above: Performed By: #### C BC #### [facility] [address], [place] [id number] Vital Signs Date Time Vital Sign Value Performing Clinician Facility 12-12-2023 15:42-0500 Body height 157.5 cm Jeyson Lew MD Work Phone: [facility] 12-12-2023 15:42-0500 Body mass index (BMI) [Ratio] 33.11 kg/m2 Jeyson Lew MD Work Phone: [facility] 12-12-2023 15:42-0500 Body weight 82.1 kg Jeyson Lew MD Work Phone: [facility] 10-08-2023 13:00-0500 Body height 157.48 cm Pb Sanabria Other [facility] Other 10-08-2023 13:00-0500 Body mass index (BMI) [Ratio] 32.55 kg/m2 Pb Sanabria Other [facility] Other 10-08-2023 13:00-0500 Body weight 80.74 kg Pb Sanabria Other [facility] Other 10-08-2023 13:00-0500 Diastolic blood pressure 67 mm[Hg] Pb Sanabria Other [facility] Other 10-08-2023 13:00-0500 SaO2% (BldA) [Mass fraction] 95 % Pb Sanabria Other [facility] Other 10-08-2023 13:00-0500 Systolic blood pressure 124 mm[Hg] Pb Sanabria Other [facility] Other 11-27-2022 15:05-0500 Body height 157.5 cm Doug Sahni GUARDIAN AD LITEM-SURGICAL SALES REPRESENTATIVE Work Phone: [facility] 11-27-2022 15:05-0500 Body mass index (BMI) [Ratio] 34.39 kg/m2 Doug Sahni APRN-SURGICAL SALES REPRESENTATIVE Work Phone: [facility] 11-27-2022 15:05-0500 Body temperature 97 [degF] Doug Sahni GUARDIAN AD LITEM-SURGICAL SALES REPRESENTATIVE Work Phone: [facility] 11-27-2022 15:05-0500 Body weight 85.28 kg Doug Sahni APRN-SURGICAL SALES REPRESENTATIVE Work Phone: [facility] 08-08-2022 08:48-0400 Body height 157.5 cm Serafin Calles MD Work Phone: [facility] 08-08-2022 08:48-0400 Body mass index (BMI) [Ratio] 34.56 kg/m2 Serafin Calles MD Work Phone: [facility] 08-08-2022 08:48-0400 Body temperature 98.49 [degF] Serafin Calles MD Work Phone: [facility] 08-08-2022 08:48-0400 Body weight 85.7 kg Serafin Calles MD Work Phone: [facility] 08-01-2022 11:19-0400 Body height 157.5 cm Jeyson Lew MD Work Phone: [employer] [facility] 08-01-2022 11:19-0400 Body mass index (BMI) [Ratio] 34.57 kg/m2 Jeyson Lew MD Work Phone: [employer] [facility] 08-01-2022 11:19-0400 Body weight 85.73 kg Jeyson Lew MD [facility] 04-06-2022 09:43-0400 Body height 157.5 cm Jeyson Lew MD Work Phone: [employer] [facility] 04-06-2022 09:43-0400 Body mass index (BMI) [Ratio] 34.57 kg/m2 Jeyson Lew MD Work Phone: [employer] [facility] 04-06-2022 09:43-0400 Body weight 85.73 kg Jeyson Lew MD Work Phone: [facility] [employer] [facility] 12-07-2021 14:22-0500 Body height 157.5 cm Doug Sahni GUARDIAN AD LITEM-SURGICAL SALES REPRESENTATIVE Work Phone: [employer] [facility] 12-07-2021 14:22-0500 Body mass index (BMI) [Ratio] 34.57 kg/m2 Doug Sahni GUARDIAN AD LITEM-SURGICAL SALES REPRESENTATIVE Work Phone: [employer] [facility] 12-07-2021 14:22-0500 Body temperature 98.2 [degF] Doug Sahni GUARDIAN AD LITEM-SURGICAL SALES REPRESENTATIVE Work Phone: [employer] [facility] 12-07-2021 14:22-0500 Body weight 85.73 kg Doug Sahni GUARDIAN AD LITEM-SURGICAL SALES REPRESENTATIVE Work Phone: [employer] [facility] 11-14-2021 18:30-0500 Diastolic blood pressure 68 mm[Hg] Jeyson Lew MD Work Phone: [employer] [facility] 11-14-2021 18:30-0500 Heart rate 73 /min Jeyson Lew MD Work Phone: [employer] [facility] 11-14-2021 18:30-0500 Respiratory rate 20 /min Jeyson Lew MD Work Phone: [facility] 11-14-2021 18:30-0500 SaO2% (BldA) [Mass fraction] 96 % Jeyson Lew MD Work Phone: [facility] 11-14-2021 18:30-0500 Systolic blood pressure 154 mm[Hg] Jeyson Lew MD Work Phone: [facility] 11-14-2021 12:44-0500 Body temperature 98.2 [degF] Jeyson Lew MD Work Phone: [facility] 11-14-2021 08:23-0500 Body height 157.5 cm Jeyson Lew MD Work Phone: [facility] 11-14-2021 08:23-0500 Body mass index (BMI) [Ratio] 34.39 kg/m2 Jeyson Lew MD Work Phone: [facility] 11-14-2021 08:23-0500 Body weight 85.28 kg Jeyson Lew MD Work Phone: [facility] 10-03-2021 14:00-0400 Body height 157.48 cm Pb Sanabria Other [facility] Other 10-03-2021 14:00-0400 Body mass index (BMI) [Ratio] 35.3 kg/m2 Pb Sanabria Other [facility] Other 10-03-2021 14:00-0400 Body temperature 97.7 [degF] Pb Sanabria Other [facility] Other 10-03-2021 14:00-0400 Body weight 87.54 kg Pb Sanabria Other [facility] Other 10-03-2021 14:00-0400 Diastolic blood pressure 71 mm[Hg] Pb Sanabria Other [facility] Other 10-03-2021 14:00-0400 SaO2% (BldA) [Mass fraction] 98 % Pb Daniele Other [facility] Other 10-03-2021 14:00-0400 Systolic blood pressure 146 mm[Hg] Pb Sanab[facility] Other [facility] Other Encounters Encounter Date Encounter Type Care Provider Facility Start: 03-11-2024 End: 03-11-2024 ambulatory TYSHAWN Rodriguez HICKMAN Not Available Start: 01-20-2024 End: 01-20-2024 ambulatory TYSHAWN B HICKMAN Not Available Start: 12-30-2023 End: 12-30-2023 ambulatory TYSHAWN B HICKMAN Not Available Start: 12-19-2023 End: 12-19-2023 ambulatory TYSHAWN B HICKMAN Not Available Start: 12-12-2023 ambulatory [facility] Start: 12-12-2023 ambulatory [facility] Start: 12-12-2023 End: 12-12-2023 Office outpatient visit 15 minutes Jeyson Lew MD Work Phone: [facility] Comment on above: Primary osteoarthrit is of left hip (Primary Dx) Start: 12-12-2023 End: 12-12-2023 Subsequent hospital visit by physician Jeyson Lew MD Work Phone: [facility] Start: 12-11-2023 End: 12-11-2023 ambulatory JOSE CRUZ H TIMMIS Not Available Start: 12-05-2023 End: 12-06-2023 ambulatory Jose Cruz H Timmis Facility:[facility] Start: 12-05-2023 End: 12-05-2023 Patient encounter procedure Jose Cruz H Timmis [facility] Start: 11-04-2023 End: 11-04-2023 ambulatory JOSE CRUZ H TIMMIS Not Available Start: 10-08-2023 Office outpatient vi sit 25 minutes Pb Sanabria [facility] Start: 10-08-2023 End: 10-08-2023 ambulatory NAYANA Tyshawn Hickman Work Phone: [facility] Work Phone: Start: 10-08-2023 End: 10-08-2023 Patient encounter procedure II Tyshawn Hickman Work Phone: [facility] Work Phone: Start: 02-28-2023 End: 03-01-[address] TYSHAWN HICKMAN Facility:[facility] Start: 01-03-2023 ambulatory JEYSON LEW [facility] Start: 11-27-2022 End: 11-27-2022 Office outpatient visit 15 minutes Doug Sahni APRN-SURGICAL SALES REPRESENTATIVE Work Phone: [facility] Comment on above: Primary osteoarthrit is of one hip, left (Primary Dx) Start: 11-27-2022 End: 11-27-2022 Subsequent hospital visit by physician Doug Sahni APRN-SURGICAL SALES REPRESENTATIVE Work Phone: [facility] Start: 10-03-2022 End: 10-03-[address] ROLA IVORY Facility:[facility] Start: 09-17-2022 End: 09-17-2022 ambulatory ALEXANDRA DOE . Facility:[facility] Start: 08-08-2022 End: 08-08-2022 Office outpatient new 30 minutes Serafin Calles MD Work Phone: [facility] Comment on above: Trigger finger of le ft hand, unspecified finger (Primary Dx) Start: 08-01-2022 End: 08-01-2022 Office outpatient visit 15 minutes Jeyson eLw MD Work Phone: [facility] Comment on above: Hx of total hip arth roplasty, left (Primary Dx); Pain due to left hip joint prosthesis, sequela Start: 08-01-2022 End: 08-01-2022 Subsequent hospital visit by physician Jeyson Lew MD Work Phone: [facility] Start: 06-07-2022 End: 06-08-[address] TYSHAWN HICKMAN Facility:[facility] Start: 05-28-2022 End: 05-29-[address] TYSHAWN HICKMAN Facility:[facility] Start: 05-26-2022 End: 05-26-[address] TYSHAWN HICKMAN Facility:[facility] Start: 05-10-2022 End: 05-10-[address] APRIL LÓPEZ . Facility:[facility] Start: 04-06-2022 End: 04-06-2022 Office outpatient visit 15 minutes Jeyson Lew MD Work Phone: [facility] Comment on above: Hx of total hip arth roplasty, left (Primary Dx) Start: 04-06-2022 End: 04-06-2022 Subsequent hospital visit by physician Jeyson Lew MD Work Phone: [facility] Start: 01-10-2022 End: 01-19-2022 Postop follow up visit related to original px Doug Sahni GUARDIAN AD LITEM-SURGICAL SALES REPRESENTATIVE Work Phone: [facility] Comment on above: Hx of total hip arth roplasty, left (Primary Dx) Start: 12-07-2021 End: 12-07-2021 Postop follow up visit related to original px Jeyson Lew MD Work Phone: [facility] Comment on above: Hx of total hip arth roplasty, left (Primary Dx) Start: 12-07-2021 End: 12-07-2021 Subsequent hospital visit by physician Doug Sahni GUARDIAN AD LITEM-SURGICAL SALES REPRESENTATIVE Work Phone: [facility] Start: 11-14-2021 End: 11-14-2021 Patient encounter status Jeyson Lew MD Work Phone: [facility] Start: 11-14-2021 End: 11-14-2021 Subsequent hospital visit by physician Jeyson eLw MD Work Phone: [facility] Comment on above: Primary osteoarthrit is of left hip Start: 11-06-2021 End: 11-06-2021 Admission to establishment Santiago Deysi Ont Pat Testing [facility] Comment on above: Preop testing (Prima ry Dx) Start: 11-06-2021 End: 11-06-2021 Patient encounter status Santiago Deysi Ont Pat Testing [facility] Start: 10-03-2021 End: 10-03-2021 ambulatory Pb Sanabria Other [facility] Other Start: 10-03-2021 Office outpatient vi sit 25 minutes Pb Sanabria [facility] Procedures Date Procedure Procedure Detail Performing Clinician Start: 08-08-2022 Injection 1 tendon sheath/ligament aponeurosis Serafin Calles MD Work Phone: Start: 11-14-2021 Blood count hematocrit Doug Sahni GUARDIAN AD LITEM-SURGICAL SALES REPRESENTATIVE Work Phone: Start: 11-14-2021 Gluc bld gluc mntr d ev cleared fda spec home use Jeyson Lew MD Work Phone: Start: 11-14-2021 Radiologic examinati on pelvis 1/2 views Doug Sahni GUARDIAN AD LITEM-SURGICAL SALES REPRESENTATIVE Work Phone: Start: 11-14-2021 Iadna nos amplified probe tq each organism Doug Sahni GUARDIAN AD LITEM-SURGICAL SALES REPRESENTATIVE Work Phone: Start: 11-14-2021 Blood typing serologic abo Jeyson Lew MD Work Phone: Start: 11-14-2021 Prothrombin time Jeyson Lew MD Work Phone: Plan of Treatment Date Care Activity Detail Author Start: 09-17-2032 Tetanus vaccination TETANUS [facility] Start: 08-03-2024 Tetanus vaccination TETANUS [facility] Start: 10-09-2023 Pneumococcal vaccination PNEUM OCOCCAL VACCINE SERIES (3 - PPSV23 or PCV20) [facility] Start: 08-02-2023 COVID-19 VACCINE ( season) COVID-19 VACCINE ( season) [facility] Start: 11-14-2022 End: 11-14-2022 Patient encounter procedure 11/14/2022 Office Visit Orthopaedics Doug Sahni, GUARDIAN AD LITEM-SURGICAL SALES REPRESENTATIVE [address] [place] [address] [facility] Start: 10-10-2022 End: 10-10-2022 Patient encounter procedure 10/10/2022 Office Visit Orthopaedics Serafin Calles MD [address] [place] [address] [facility] Start: 10-04-2022 Screening for malign ant neoplasm of colon COLORECTAL CANCER SCREENING DISCUSSION [facility] Start: 08-31-2022 Potassium [Moles/vol ume] in Serum or Plasma POTASSIUM [facility] Start: 08-08-2022 End: 08-08-2022 Patient encounter procedure 08/08/2022 Office Visit Orthopaedics Serafin Calles MD [address] [place] [address] [facility] Start: 08-02-2022 Influenza vaccination INFLUENZA VACC INE (#1) [facility] Start: 03-15-2022 End: 03-15-2022 Patient encounter procedure 03/15/2022 Office Visit Orthopaedics Jeyson Lew MD [address] [place] [id number] [facility] Start: 12-28-2021 End: 12-28-2021 Patient encounter procedure [facility] Start: 12-07-2021 End: 12-07-2021 Patient encounter procedure 12/07/2021 Office Visit Orthopaedics Doug Sahni, GUARDIAN AD LITEM-SURGICAL SALES REPRESENTATIVE [address] [place] [address] [facility] Start: 11-14-2021 End: 11-14-2021 Admission to same day surgery center 11/14/2021 Surgery Multispecialty Jeyson Lew MD [address] [place] [address] ARTHROPLASTY HIP TOTAL AL - LEFT [facility] Comment on above: ARTHROPLASTY HIP TOT AL AL - LEFT Start: 11-14-2021 End: 11-14-2021 Arthrp acetblr/prox fem prostc agrft/algrft ARTHROPLASTY HIP TOTAL LATERAL APPROACH Primary osteoarthritis of left hip 11/14/2021 10:00 AM EST [facility] Start: 11-14-2021 Subsequent hospital visit by physician 11/14/2021 Hospital Encounter Multispecialty Jeyson Lew MD [address] [id number] Primary osteoarthritis of left hip [facility] Comment on above: Primary osteoarthrit is of left hip Start: 09-16-2021 COVID-19 VACCINE (3 - Booster for Moderna series) COVID-19 VACCINE (3 - Booster for Moderna series) [facility] Start: 08-17-2021 COVID-19 VACCINE (3 - Booster for Moderna series) COVID-19 VACCINE (3 - Booster for Moderna series) [facility] Start: 08-02-2021 Influenza vaccination INFLUENZA VACC INE (#1) [facility] Start: 05-12-2021 COVID-19 VACCINE (3 - Booster for Moderna series) COVID-19 VACCINE (3 - Booster for Moderna series) [facility] Start: 10-27-2020 Screening for malign ant neoplasm of breast MAMMOGRAM SCREENING DISCUSSION [facility] Start: 10-09-2019 Pneumococcal vaccination PNEUM OCOCCAL VACCINE SERIES (#3) [facility] Start: 2017 Pneumococcal vaccination [facility] Start: 2002 Zoster vaccine hzv l bolivar for subcutaneous use ZOSTER (SHINGLES) VACCINE (1 of 2) [facility] Start: 1997 Colonoscopy COLORECTAL CAN CER SCREENING DISCUSSION [facility] Start: 1997 Screening for malign ant neoplasm of colon COLORECTAL CANCER SCREENING DISCUSSION [facility] Start: 1992 Fasting lipid profile LIPID SCREENIN G [facility] Start: 1992 Lipid panel LIPID SCREENING [facility] Start: 1992 Screening for malign ant neoplasm of breast MAMMOGRAM SCREENING DISCUSSION [facility] Start: 1992 Screening mammography MAMMOGRA M SCREENING DISCUSSION [facility] Start: 1973 Screening for malign ant neoplasm of cervix CERVICAL CANCER SCREENING DISCUSSION [facility] Start: 1971 Third diphtheria, tetanus and acellular pertussis (DTaP) vaccination TDAP (ADULT) [facility] Start: 1970 Tetanus vaccination TETANUS [facility] Start: 1952 Hepatitis C antibody , confirmatory test HEPATITIS C VIRUS SCREENING [facility] Start: 1952 Hepatitis C screening HEPATITI S C VIRUS SCREENING [facility] Start: 1950 Screening for osteoporosis DEXA SCAN DISCUSSION [facility] End: 11-14-2021 Radiography of hip [facility] Work Phone: Comment on above: One Time for 1 Occur rences starting 11/14/2021 until 11/14/2021 Skeletal X-ray of pe lvis and hip XR HIP WITH PELVIS LEFT Imaging Routine Hx of total hip arthroplasty, left 12/07/2021 1:53 PM [facility] Skeletal X-ray of pe lvis and hip XR HIP WITH PELVIS LEFT Imaging Routine Hx of total hip arthroplasty, left 01/16/2022 9:52 AM EST [facility] SURGICAL PATHOLOGY REQUEST SURGICAL PATHOLOGY REQUEST Surg Path Routine Primary osteoarthritis of left hip Release Upon Ordering for 1 Occurrences starting 11/14/2021 [facility] Comment on above: Release Upon Orderin g for 1 Occurrences starting 11/14/2021 XR Pelvis and Hip - left Views XR HIP WITH PELVIS LEFT Imaging Routine Hx of total hip arthroplasty, left 04/06/2022 8:24 AM EDT [facility] Work Phone: XR Pelvis and Hip - left Views XR HIP WITH PELVIS LEFT Imaging Routine Hx of total hip arthroplasty, left 08/01/2022 10:18 AM EDT [employer] [employer] XR Pelvis and Hip - left Views XR HIP WITH PELVIS LEFT Imaging Routine Hx of total hip arthroplasty, left 11/27/2022 2:46 PM EST [facility] X[facility] Pelvis and Hip - left Views XR HIP WITH PELVIS LEFT Imaging Routine Primary osteoarthritis of left hip 12/12/2023 3:34 PM EST [facility] Immunizations Immunization Date Immunization Notes Care Provider Cherelle santo 09-06-2021 influenza virus vaccine, unspecified formulation Jeyson Lew MD Work Phone: [facility] 03-17-2021 COVID-19 mRNA-1273 (Moderna) II Tyshawn Hickman Work Phone: [facility] 02-17-2021 COVID-19 mRNA-1273 (Moderna) II Tyshawn Hickman Work Phone: [facility] 08-31-2020 influenza virus vaccine, unspecified formulation [facility] Payers Date Payer Category Payer Medicare [id number] 2021 Self-pay [id number] 2021 Medicare MEDICARE MEDICAR E A AND B [id number] 2021-Present [address] [place] [address] [id number]. [id number] 2021 Medicare [id number] 1.13.172.2.7.3. [id number] 2019 Unknown GENERIC PAYOR ME DICARE SUPPLEMENT [id number] 2019-Present [phone] [place] [address] [id number] 1.2.840.518327.1.13.172.2.7.3. [id number] 2019 Unknown GENERIC PAYOR ME DICARE SUPPLEMENT [id number] 2019-Present [phone] [place] [address] 1.2.840.009153.1.13.172.2.7.3. [id number] 1959 Medicare [id number] 2.16.840.1.093760.19 1959 Medicare [id number] 1959 Unknown [id number] 2.16.840.1.743830.19 1959 Unknown [id number] 1952 Unknown [id number] 2.16.840.1.046131.3.579.2.593 1952 Unknown [id number] 2.16.840.1.433083.3.579.2.593 1952 Unknown [id number] 2.16.840.1.989773.3.579.2.593 1952 Unknown [id number] 2.16.840.1.787213.3.579.2.593 1952 Unknown [id number] 2.16.840.1.177143.3.579.2.593 1952 Unknown [id number] 2.16.840.1.807038.3.579.2.593 1952 Unknown [id number] 2.16.840.1.044449.3.579.2.593 1952 Unknown [id number] 2.16.840.1.278054.3.579.2.727 1952 Unknown [id number] 2.16.840.1.667634.3.579.2.983 1952 Unknown [id number] 2.16.840.1.142373.3.579.2.983 1952 Unknown [id number] 2.16.840.1.264182.3.579.2.983 1952 Unknown [id number] 2.16.840.1.280187.3.579.2.983 1952 Unknown [id number] 2.16.840.1.452202.3.579.2.1259 1952 Unknown [id number] 2.16.840.1.990100.3.579.2.1259 1952 Unknown [id number] 2.16.840.1.795058.3.579.2.1259 1952 Unknown [id number] 2.16.840.1.198729.3.579.2.1259 1952 Unknown [id number] 2.16.840.1.490002.3.579.2.1259 1952 Unknown [id number] 2.16.840.1.435294.3.579.2.1259 1952 Unknown [id number] 2.16.840.1.376896.3.579.2.1259 Unknown [place]/ [id number] Unknown [id number] 2.16.840.1.863280.3.579.2.531 Social History Date Type Detail Facility Start: 08-10-2021 End: 11-27-2022 Tobacco smoking status NHIS Ex-smoker [facility] Start: 08-10-2021 End: 11-27-2022 Tobacco use and exposure Smokeless tobacco non-user [facility] Start: 11-02-2021 End: 12-12-2023 Alcohol intake Lifetime non-drinker (finding) [facility] Start: 08-10-2021 History SDOH Alcohol Frequency 1 [facility] Start: 08-10-2021 End: 11-27-2022 Tobacco Comment Quit 1999 [facility] Start: 1950 Sex Assigned At Not on file A [facility] Exposure to SARS-CoV -2 (event) Not sure [facility] Start: 12-12-2023 Sex Assigned At F [facility] History of tobacco use Current smoker [facility] Start: 1950 Sex Assigned At Female F [facility] Tobacco smoking status No Smokin g Status Entered [facility] Start: 12-12-2023 History of Social function [facility] Medical Equipment Procedure Code Equipment Code Equipment Original Text Equipment Identifier Dates Forest Gripton Acetabular Shell Sector 54mm Od [id number] Start: 11-14-2021 Altrx Polyethyle ne Acetabular Liner Neutral 36mm Id 54 Od [id number] Start: 11-14-2021 Femoral Stem Taper Actis Duofix Hip Prosthesis Cementless Size 6 Std Collar [id number] Start: 11-14-2021 Biolox Delta Cer amic Femoral Head +1.5 36mm Gracie 11/14 Taper [id number] Start: 11-14-2021 Suture [place], Biocompositie Corkscrew Ft, Vented With 1.3mm White/Blue And White/Black Suture Tape [id number] Start: 11-14-2021 Suture [place], Biocompositive Swivelock C, Closed Eyelet With #2 Fiberwire, 4.75 X 19.1mm [id number] Start: 11-14-2021 Suture [place], Biocompositive Swivelock C, Closed Eyelet With #2 [...] 12/12/2023 3:42 PM Patient: Siria Petty MR#: [id number] : 1950 Age: 73 y.o. Referring Physician: [...] Take 1 tablet by mouth daily. nystatin-triamcinolone 909817-6.1 UNIT/GM-% Ointment as needed. omeprazole 20 MG [...] 12/12/2023 3:42 PM Patient: Siria Petty MR#: [id number] : 1950 Age: 73 y.o. Referring Physician: Self, Self Insurance: Payor: MEDICARE [employer] HMO / Plan: [facility] / Product Type: *No Product type* [...] Take 1 tablet by mouth daily. nystatin-triamcinolone 654639-2.1 UNIT/GM-% Ointment as needed. omeprazole 20 MG [...] No Known Allergies. documented in this encounter [facility] 10-08-2023 Evaluation note Encounter Date [...] - G25.81) Not currently an active problem Otonomy Other 12-27-2022 History of Present illness Narrative* Chrystal Geovanny - 11/27/2022 3:20 PM EST Ortho Nurse - Established Patient Intake Room#: 5 Date: 11/27/2022 3:07 PM Patient: Siria Petty MR#: [id number] : 1950 Age: 72 y.o. 1yr L [...] Take 1 tablet by mouth daily. nystatin-triamcinolone 591487-0.1 UNIT/GM-% Ointment as needed. omeprazole 20 MG [...] by mouth daily., Disp: , Rfl: nystatin-triamcinolone 470767-3.1 UNIT/GM-% Ointment, as needed. , Disp: , [...] has No Known Allergies. * Doug Sahni APRN-SURGICAL SALES REPRESENTATIVE - 11/27/2022 3:20 PM EST HPI: Patient [...] 11/27/2022 3:07 PM Patient: Siria Petty MR#: [id number] : 1950 Age: 72 y.o. 1yr L [...] Take 1 tablet by mouth daily. nystatin-triamcinolone 715144-5.1 UNIT/GM-% Ointment as needed. omeprazole 20 MG [...] by mouth daily., Disp: , Rfl: nystatin-triamcinolone 771451-9.1 UNIT/GM-% Ointment, as needed. , Disp: , [...] Allergies. documented in this [facility]09-07-2022 History of Present illness Narrative* Heather [...] by mouth daily., Disp: , Rfl: nystatin-triamcinolone 879609-9.1 UNIT/GM-% Ointment, as needed. , Disp: , [...] months. documented in this [facility]08-31-2022 History of Present illness Narrative* Jaswant Baldwin LPN - 08/01/2022 10:30 AM EDT Ortho Nurse - Established Patient Intake Room#: 3 Left TILA 11-14-21, had a fall on 05-10-22 went to [facility] and was told everything looked good and was given pain medication which she is done with. Before fall she states she was doing great with occasional pain of 2, since her fall the pain radiates down to her foot and is a 10 Date: 08/01/2022 11:26 AM Patient: Siria Petty MR#: [id number] : 1950 Age: 72 y.o. Referring Physician: [...] Take 1 tablet by mouth daily. nystatin-triamcinolone 697188-9.1 UNIT/GM-% Ointment as needed. acetaminophen 325 MG [...] by mouth daily., Disp: , Rfl: nystatin-triamcinolone 753282-4.1 UNIT/GM-% Ointment, as needed. , Disp: , [...] a fall on 05/10/21, went to the [facility] with reported unremarkable work up. She [...] fall on 05-10-22 went to [facility] and was told everything looked good and was given pain medication which she is done with. Before fall she states she was doing great with occasional pain of 2, since her fall the pain radiates down to her foot and is a 10 Date: 08/01/2022 11:26 AM Patient: Siria Petty MR#: [id number] : 1950 Age: 72 y.o. Referring Physician: [...] Take 1 tablet by mouth daily. nystatin-triamcinolone 935852-3.1 UNIT/GM-% Ointment as needed. acetaminophen 325 MG [...] by mouth daily., Disp: , Rfl: nystatin-triamcinolone 357203-8.1 UNIT/GM-% Ointment, as needed. , Disp: , [...] has No Known Allergies. [facility] History of Present illness Narrative* Jaswant Baldwin LPN - 04/06/2022 9:10 AM EDT Ortho Nurse - Established Patient Intake Room#: 1 4+ month left TILA A/L, some pain of 2, doing great Date: 04/06/2022 9:49 AM Patient: Siria Petty MR#: [id number] : 1950 Age: 71 y.o. Referring Physician: [...] Take 1 tablet by mouth daily. nystatin-triamcinolone 412038-3.1 UNIT/GM-% Ointment as needed. acetaminophen 325 MG [...] by mouth daily., Disp: , Rfl: nystatin-triamcinolone 625590-2.1 UNIT/GM-% Ointment, as needed. , Disp: , [...] 04/06/2022 9:49 AM Patient: Siria Petty MR#: [id number] : 1950 Age: 71 y.o. Referring Physician: [...] Take 1 tablet by mouth daily. nystatin-triamcinolone 020704-3.1 UNIT/GM-% Ointment as needed. acetaminophen 325 MG [...] by mouth daily., Disp: , Rfl: nystatin-triamcinolone 932527-1.1 UNIT/GM-% Ointment, as needed. , Disp: , [...] Allergies. documented in this [facility]02-09-2022 History of Present illness Narrative* Doug Sahni APRN-SURGICAL SALES REPRESENTATIVE - 01/10/2022 2:20 PM EST SUBJECTIVE: Siria [...] scheduled 4-month appointment or sooner as necessary. (DOC:[id number]) I have reviewed the findings of the clinical developer support engineer and agree with their assessment. EDY Parra No notes on file documented in this [facility]01-06-2022 History of Present illness Narrative* EDY [...] visit. All pertinant portions of the clinical developer support engineer documentation was reviewed. EDY Parra I have reviewed the findings of the clinical developer support engineer and agree with their assessment. EDY Parra Ortho Nurse Established Patient Intake Room#: 4 Date: 12/07/2021 2:25 PM Patient: Siria Petty MR#: [id number] : 1950 Age: 71 y.o. 3wk S/P [...] Take 1 tablet by mouth daily. nystatin-triamcinolone 558722-3.1 UNIT/GM-% Ointment as needed. omeprazole 20 MG [...] by mouth daily., Disp: , Rfl: nystatin-triamcinolone 230054-4.1 UNIT/GM-% Ointment, as needed. , Disp: , [...] 12/07/2021 2:25 PM Patient: Siria Petty MR#: [id number] : 1950 Age: 71 y.o. 3wk S/P [...] Take 1 tablet by mouth daily. nystatin-triamcinolone 145184-1.1 UNIT/GM-% Ointment as needed. omeprazole 20 MG [...] by mouth daily., Disp: , Rfl: nystatin-triamcinolone 272547-0.1 UNIT/GM-% Ointment, as needed. , Disp: , [...] Allergies. documented in this [facility]12-14-2021 Nurse Note* Yadira Salas RN - [...] - 11/14/2021 4:30 PM EST Doug Sahni SURGICAL SALES REPRESENTATIVE notified of Hgb Hct results,no further orders. * Yadira Salas RN - 11/14/2021 3:30 PM EST Took 50% of regular tray w/o nausea. * Nicole Laurent RN - 11/14/2021 12:47 PM EST Patient transferred to PACU via bed with this nurse and FLUID PUMP OPERATOR. Bedside report given to ARTEMIO Quinones. * Nicole Laurent RN - 11/14/2021 11:36 AM EST OR room temp: 66.3 OR room humidity: 50 documented in this [facility]12-14-2021 History of Present illness Narrative* Trisha [...] Transfer Skill: Sit To Stand, Rehab Eval [place] (Sit-Stand Transfers) contact guard Physical Assist/Nonphysical Assist: Sit/Stand 1 person assist Weight-Bearing Restrictions: Sit/Stand toe touch weight-bearing Assistive Device For Transfer: Sit/Stand 2 wheeled walker Gait Skills, PT Eval Level of [place]: Gait contact guard Physical Assist/Nonphysical Assist: Gait 1 person assist Weight-Bearing Restrictions: Gait toe touch weight-bearing Assistive Device For Transfer: Gait 2 wheeled walker Gait Distance 50 feet Gait Analysis, PT Eval Gait Pattern Used swing-to gait Stair Negotiation [place] Level: Stair Negotiation contact guard assist Physical [...] Supine to Sit, Rehab Eval Level of [place]: Supine/Sit stand-by assist Physical Assist/Nonphysical Assist: Supine/Sit 1 person assist;verbal cues Transfer Skill: Sit to Stand, Rehab Eval Level of [place]: Sit/Stand contact guard Physical Assist/Nonphysical Assist: Sit/Stand 1 person assist Weight-Bearing Restrictions: Sit/Stand touch down weight-bearing Assistive Device for Transfer: Sit/Stand wheeled walker Upper Body Dressing Level of [place] independent Physical Assist/Nonphysical Assist set-up required Lower Body Dressing Level of [place] moderate assist (50% patients effort) Physical Assist/Nonphysical Assist 1 person assist (including TONIA hose) Assistive Device finishing area operator General Therapy Interventions Planned Therapy Interventions (OT Eval) ADL retraining;balance training;transfer training Clinical Impression Co-evaluation/co-treatment performed? Yes, combination of simultaneous billable and non-billable treatment Patient Instruction Pt instructed on LB dressing techniques utilizing finishing area operator to rodo underwear andshorts in sitting and [...] (OT Eval) bathing equipment;dressing equipment;raised toilet seat;tub bench;finishing area operator Today's Treatment Included Pt demonstrates moderate to [...] hygiene training Therapist Information License # [id number] 1. Pt will complete LB dressing min [...] 0.86 Docusate 100mg 4.00 APAP 325mg 4.00 [place] 5-325mg 1.80 Tramadol 50mg 1.35 Omeprazole 20mg 2.90 Ondansetron 4mg 4.00 Total $ 20.91 Patient Education Counseled patient on appropriate use and side effects of medications. Medications to be picked up in pharmacy Thaddeus Wallis PharmD [facility] [phone] * OSMEL Frazier - 11/14/2021 3:31 PM EST DYEING MACHINE FEEDER met with patient and spouse. OSMEL explained that it was recommended for the patient to dischargehome with home health services for CBC lab draw on 11/16 as well as 1 week of therapy for safety precaution awareness. DYEING MACHINE FEEDER was able to arrange services through [facility]. DYEING MACHINE FEEDER explained they would contact her to arrange [...] Supine to Sit, Rehab Eval Level of [place]: Supine/Sit minimum assist (75% patients effort) Physical Assist/Nonphysical Assist: Supine/Sit 1 person assist Transfer Skill: Sit To Stand, Rehab Eval [place] (Sit-Stand Transfers) contact guard Physical Assist/Nonphysical Assist: Sit/Stand 1 person assist Weight-Bearing Restrictions: Sit/Stand toe touch weight-bearing Assistive Device For Transfer: Sit/Stand 2 wheeled walker Gait Skills, PT Eval Level of [place]: Gait contact guard Physical Assist/Nonphysical Assist: Gait [...] weight bearing status and use of leg pot firer. Pt performed ankle pumps and quad sets [...] opiate. documented in this [facility]12-14-2021 Hospital Discharge instructions* Instructions* Raina Maurice [...] pillow between legs Hip Precautions: Contact Office ([phone]) if: > Any falls or injuries > [...] [place] office is closed, you may call [phone] where you will be connected with an after hours orthopedic nurse that will be able to answer your questions. documented in this encounterRose Medical CenterHaofang Online Information Technology [id number] Miscellaneous Notes* Nursing Notes - Joni Ly RN - 11/14/2021 1:14 PM EST Discharged from PACU in stable condition at this time. Transported via cart to [facility] 6. Cart placed in lowest position. Call light within reach. Pulse ox monitor on pt with alarms set. Report radha Salas Rn. [facility] [employer] [id number] Instructions* Patient Instructions* Rocio Peña RN - 11/06/2021 7:[address] Lew's office will call you for your arrival time, 1-2 business days before your scheduled surgery. Please review your surgery checklist and bring your guide or booklet the day of surgery. Pre-Admission Testing Dept. [phone] Call if you have any changes in [...] Yellow - take the day of surgery [place] - hold according to the doctor's instructions [...] YOUR SURGERY Last Dose: Date Time nystatin-triamcinolone 440308-0.1 UNIT/GM-% Ointment NEEDED CONTINUE, but DO NOT take the morning of surgery. Last Dose: Date Time documented in this [facility]11-02-2021 Evaluation note* Encounter Date Diagnosis Assessment [...] fatigue, but may also predispose to RLS Otonomy Other Evaluation + Plan note No data available for this section [facility]* Diagnosis Preop testing- Primary Preoperative examination, unspecified Primary osteoarthritis of left hip Primary localized osteoarthrosis, pelvic region and thigh [facility] Preop testing- Primary Preoperative examination, unspecified Abnormal coagulation profile Abnormal coagulation profile Encounter for preoperative screening laboratory testing for COVID-19 virus Primary osteoarthritis of left hip Primary localized osteoarthrosis, pelvic region and thigh Acute postoperative pain of left knee documented in this encounter [facility] Center[facility]of[facility] Online Information Technology SystemEvaluation note* Diagnosis Hx of total hip arthroplasty, left- Primary Hx of total hip arthroplasty, left- Primary [facility] Diagnosis Hx of total hip arthroplasty, left- Primary documented in this encounter [facility]* Diagnosis Hx of total hip arthroplasty, left- Primary [facility]* Diagnosis Hx of total hip arthroplasty, left- Primary Pain due to left hip joint prosthesis, sequela documented in this encounter [facility]* Diagnosis Trigger finger of left hand, unspecified finger- Primary documented in this encounter [facility]* Diagnosis Primary osteoarthritis of one hip, left- Primary documented in this encounter [facility] SystemEvaluation noteNo assessment information availableTrihealth [facility]cc[facility] Work Phone: Evaluation note* Diagnosis Primary osteoarthritis of left hip- Primary Primary localized osteoarthrosis, pelvic region and thigh documented in this encounter [facility] SystemHistory general Narrative - Reported* Type Description Date Medical History COPD Medical History ADRIANNA Medical History diastolic CHF with preserved EF Medical History Type II diabetes diet controlled Otonomy Other History of Present illness Narrative* Rashmi [...] HEARING AIDS OR ANY TROUBLE HEARING [place] DIFFICULTY SWALLOWING no DENTAL APPLIANCES OR PROBLEMS (dentures, partials, loose teeth, missing teeth, broken teeth, caps or crowns) Dentures full BETA DONNIE USE yes STEROIDS IN THE PAST 2 YEARS no HISTORY OF BLOOD TRANSFUSION/REACTION no CULTURAL OR HOAHAOISM BELIEFS THAT WILL AFFECT CARE no DIETARY [...] verbalized understanding of instructions. [facility] this [facility] Hospital[facility] Discharge instructions No data available for this section [facility] note No data available for this section [facility] SystemReason for referral (narrative)* Consultation (Routine) - New Request Specialty Diagnoses / Procedures Referred By Arlet hall Referred To Contact Orthopaedics Diagnoses Hx of total hip arthroplasty, left Jeyson Lew MD [address] [place] [address] Serafin Calles MD [address] [place] [address] 244[address] Referral ID Status Reason Start Date Expiration Date V isits Requested Visits Authorized [id number] New Request 08/01/2022 08/26/2023 1 1 * Medication Prior Authorization - Closed Specialty Diagnoses / Procedures Referred By Arlet hall Referred To Contact Jeyson Lew MD [address] [place] [address] 97658 Referral ID Status Reason Start Date Expiration Date Visits Re quested Visits Authorized [id number] Closed 1 1 * Adjunctive Therapy (Routine) - New Request Specialty Diagnoses / Procedures Referred By Arlet hall Referred To Contact Physical Therapy Diagnoses Hx of total hip arthroplasty, left Pain due to left hip joint prosthesis, sequela Jeyson Lew MD [address] [place] [address] 59672 Referral ID Status Reason Start Date Expiration Date V isits Requested Visits Authorized [id number] New Request 08/01/2022 08/26/2023 1 1 Scheduling Instructions . * Diagnostic X-Ray (Routine) - New Request Specialty Diagnoses / Procedures Referred By Contac t Referred To Contact Diagnoses Hx of total hip arthroplasty, left Procedures XR HIP WITH PELVIS LEFT Jeyson Lew MD [address] [place] [address] 29078 Referral ID Status Reason Start Date Expiration Date V isits Requested Visits Authorized [id number] New Request 07/20/2022 08/14/2023 1 1 [facility] for referral (narrative)* Consultation (Routine) - New Request Specialty Diagnoses / Procedures Referred By Contact Referred To Contact Physical Medicine & Rehabilitation Diagnoses Primary osteoarthritis of left hip Jeyson Lew MD [address] [place] [address] Pb Rosas DO [address] [place] [address] Referral ID Status Reason Start Date Expiration Date V isits Requested Visits Authorized [id number] New Request 12/12/2023 01/05/2025 1 1 * Diagnostic X-Ray (Routine) - New Request Specialty Diagnoses / Procedures Referred By Contac t Referred To Contact Diagnoses Primary osteoarthritis of left hip Procedures XR HIP WITH PELVIS LEFT Jeyson Lew MD [address] [place] [address]70 Referral ID Status Reason Start Date Expiration Date V isits Requested Visits Authorized [id number] New Request 12/12/2023 01/05/2025 1 1 [facility] for visit Narrative* Auth/Cert Specialty Diagnoses / Procedures Referred By Contac t Referred To Contact Diagnoses Primary osteoarthritis of left hip Primary osteoarthritis of left hip [M16.12] Procedures UT TOTAL HIP ARTHROPLASTY ARTHROPLASTY HIP TOTAL LATERAL APPROACH Jeyson Lew MD [address] [place] [address] Referral ID Status Reason Start Date Expiration Date Visits Re quested Visits Authorized [id number] 10/18/2021 1 1 [facility] Advance Directives No Advanced Directives [...] XR HIP WITH PELVIS LEFT Doug Sahni APRN-SURGICAL SALES REPRESENTATIVE [address] [place] [address] Referral ID Status Reason Start Date Expiration Date V isits Requested Visits Authorized [id number] New Request 11/30/2021 12/25/2022 1 1 Referral ID Status Reason Start Date Expiration Date V isits Requested Visits Authorized [id number] New Request 01/16/2022 02/10/2023 1 1 Specialty Diagnoses / Procedures Referred By Contac t Referred To Contact Diagnoses Hx of total hip arthroplasty, left Procedures XR HIP WITH PELVIS LEFT Jeyson Lew MD [address] [place] [address] Referral ID Status Reason Start Date Expiration Date V isits Requested Visits Authorized [id number] New Request 03/30/2022 04/24/2023 1 1 Summary [...] XR HIP WITH PELVIS LEFT Doug Sahni APRN-SURGICAL SALES REPRESENTATIVE [address] [place] [address] Referral ID Status Reason Start Date Expiration Date V isits Requested Visits Authorized [id number] New Request 11/30/2021 12/25/2022 1 1 Reason Comments Post Op Visit Specialty Diagnoses / Procedures Referred By Contac t Referred To Contact Diagnoses Hx of total hip arthroplasty, left Procedures XR HIP WITH PELVIS LEFT Jeyson Lew MD [address] [place] [address] Referral ID Status Reason Start Date Expiration Date V isits Requested Visits Authorized [id number] New Request 03/30/2022 04/24/2023 1 1 Referral ID Status Reason Start Date Expiration Date V isits Requested Visits Authorized [id number] New Request 07/20/2022 08/14/2023 1 1 Reason Comments Pain Reason Comments Consult Middle finger trigge ring Specialty Diagnoses / Procedures Referred By Contac t Referred To Contact Orthopaedics Diagnoses Hx of total hip arthroplasty, left Jeyson Lew MD [address] [place] [address] Serafin Calles MD [address] [place] [address] Referral ID Status Reason Start Date Expiration Date V isits Requested Visits Authorized [id number] New Request 08/01/2022 08/26/2023 1 1 Referral ID Status Reason Start Date Expiration Date V isits Requested Visits Authorized [id number] New Request 11/21/2022 12/16/2023 1 1 Reason Comments Follow-up Specialty Diagnoses / Procedures Referred By Contac t Referred To Contact Diagnoses Primary osteoarthritis of left hip Procedures XR HIP WITH PELVIS LEFT Jeyson Lew MD [address] [place] [address] Referral ID Status Reason Start Date Expiration Date V isits Requested Visits Authorized [id number] New Request 12/12/2023 01/05/2025 1 1 Reason Comments Pain Care Teams (unrecognized sec tion and content) Casting Operator Helper Relationship Specialty Start Date End Date Tyshawn Hickman II, MD [address] [place] [address] PCP - General Internal Medicine 08/10/21 Casting Operator Helper Relationship Specialty Start Date End Date Tyshawn Hickman II, MD [address] [place] [address] PCP - General Internal Medicine 08/10/21 Casting Operator Helper Relationship Specialty Start Date End Date Tyshawn Hickman II, MD [address] [place] [address] PCP - General Internal Medicine 08/10/21 Casting Operator Helper Relationship Specialty Start Date End Date Tyshawn Hickman II, MD [address] [place] [address] PCP - General Internal Medicine 08/10/21 Casting Operator Helper Relationship Specialty Start Date End Date Tyshawn Hickman II, MD [address] [place] [address] PCP - General Internal Medicine 08/10/21 Casting Operator Helper Relationship Specialty Start Date End Date Tyshawn Hickman II, MD [address] [place] [address] PCP - General Internal Medicine 08/10/21 Casting Operator Helper Relationship Specialty Start Date End Date Tyshawn Hickman II, MD [address] [place] [address] PCP - General Internal Medicine 08/10/21 Casting Operator Helper Relationship Specialty Start Date End Date Tyshawn Hickman II, MD [address] [place] [address] PCP - General Internal Medicine 08/10/21 Casting Operator Helper Relationship Specialty Start Date End Date Tyshawn Hickman II, MD [address] [place] [address] PCP - General Internal Medicine 08/10/21 Casting Operator Helper Relationship Specialty Start Date End Date Tyshawn Hickman II, MD [address] [place] [address] PCP - General Internal Medicine 08/10/21 Casting Operator Helper Relationship Specialty Start Date End Date Tyshawn Hickman II, MD [address] [place], [place] [id number] PCP - General Internal Medicine 08/10/21 Team Status: Active Member Role Status Dates Tyshawn Hickman II MD Primary Care Provider Active Team Status: Inactive Member Role Status Dates Tyshawn Hickman II MD Primary Care Provider Active Pb Sanabria MD Attending Provider Active Casting Operator Helper Relationship Specialty Start Date End Date Tyshawn Hickman II, MD [address] [place] [address] PCP - General Internal Medicine 08/10/21 Casting Operator Helper Relationship Specialty Start Date End Date Tyshawn Hickman II, MD [address] [place] [address] PCP - General Internal Medicine 08/10/21 Scheduled [...] 2 g, Intravenous, Administer over 30 Minutes, CODE MACHINE OPERATOR TO PROCEDURE, 1 dose, Starting on Sat11/14/21 at 0754, Until Discontinued, Other, Pre-operative antibiotic, For 15 Minutes, Pre-op/Pre-Proc 1051 (Given - Provid er: Jessica Rosa, GUARDIAN AD LITEM-FLUID PUMP OPERATOR - Comment: PSR s/p negative test dose) [...] section and content) DATE CREATED AUTHOR 10/17/2022 [facility] dical Specialist DATE CREATED AUTHOR AUTHOR'S ORGANIZ ATION 03/08/2023 [facility] DATE CREATED AUTHOR AUTHOR'S ORGANIZ ATION 10/12/2023 [facility] DATE CREATED AUTHOR AUTHOR'S ORGANIZ ATION 12/06/2023 [facility] DATE CREATED AUTHOR AUTHOR'S ORGANIZ ATION 12/20/2023 [facility] DATE CREATED AUTHOR AUTHOR'S ORGANIZ ATION 03/12/2024 [facility] dical Specialists EPIC Goals (unrecognized [...] BE BASED ON THE PRIMARY CLINICAL RECORDS. [facility] HospitalMagicRooms Solutions [employer] [facility]. provides no warranty or guarantee of the accuracy or completeness of information in this document.
--- NOTE | 2024-08-26 13:03 | P.CN_ITS ---
Consult Note: HPI Data of Consult Patient: known to practice within the last 3 years Requesting Physician: Stormy Reyes NP Primary Care Provider: BRIANDA MILLER Consult Narrative Reason for consult: f/u Narrative: Siria Petty a pleasant 74 year old female presents for evaluation and management of chronic low back pain with pain radiating into left hip and left leg. Pain 0/10 at this time increasing to 2/10 with standing walking and sleep, improved with rest. Failed tylenol, cannot take NSAIDs as she has had gastric bypass surgery. Has engaged in provider guided HEP greater than 6 weeks with worsening of her pain. denies loss of bowel/bladder. hx of lumbar bulging discs that responded well to ESIs in the past, recent lumbar xray and MRI as noted below. recently underwent Left L4/5 L5/S1 TFESI under fluoroscopy with >90% improvement in NC and radicular pain and left SIJ injection with >90% improvement ongoing. cc:: CC: Stormy Reyes NP Review of Systems ROS Status of ROS 10 or more systems reviewed and unremark able except as noted in history and below [facility] Medical History (Updated 06/25/24 @ 14:17 by Stormy Reyes NP) Iron deficiency anemia ?D50.9 - Iron deficiency anemia, unspecified (ICD-10) Type 2 diabetes mellitus with hyperglycemia ?E11.65 - Type 2 diabetes mellitus with hyperglycemia (ICD-10) Left sided sciatica ?M54.32 - Sciatica, left side (ICD-10) CAD (coronary artery disease) ?I25.10 - Atherosclerotic heart disease of [place] coronary artery without angina pectoris (ICD-10) Chronic heart failure with preserved ejection fraction (HFpEF) ?I50.32 - Chronic diastolic (congestive) heart failure (ICD-10) HTN (hypertension) ?I10 - Essential (primary) hypertension (ICD-10) COPD (chronic obstructive pulmonary disease) ?J44.9 - Chronic obstructive pulmonary disease, unspecified (ICD-10) Acute pelvic pain ?R10.2 - Pelvic and perineal pain (ICD-10) Diabetic acidosis, type I ?E10.10 - Type 1 diabetes mellitus with ketoacidosis without coma (ICD-10) Asthma ?J45.909 - Unspecified asthma, uncomplicated (ICD-10) Surgical History H/O lithotripsy ?Z98.890 - Other specified postprocedural states (ICD-10) Gastric bypass status for obesity ?Z98.84 - Bariatric surgery status (ICD-10) History of total left hip arthroplasty ?Z96.642 - Presence of left artificial hip joint (ICD-10) Family History Sister Family history of cancer Family history of diabetes mellitus Mother Family history of diabetes mellitus Family history of hypertension Social History Smoking status: Former smoker Second hand tobacco smoke exposure: No Non-prescribed substance use: denies use Previous occupational history: retired Known occupational exposures/hazards: No Highest level of school completed/degree received: high school graduate Do you want help with school or training: No Are you now , , , , never or living with a partner: In a typical week, how many times do you talk on the telephone with family, friends, or neighbors: 3 or more times per week How often do you get together with friends or relatives: 3 or more times per week How often do you attend episcopalian or episcopal services: 4 or more times per year Do you belong to any clubs or organizations such as episcopalian groups unions, [employer] or athletic groups, or school groups: no Total score: 3 Score interpretation: A score of greater than or equal to 2 indicates the lowest level of social isolation. Little interest or pleasure in doing things: not at all Feeling down, depressed, or hopeless: not at all Feel stressed/tense/nervous/anxious/difficulty sleeping: not at all Due to disability, difficulty making decisions: No Do you think of yourself as: straight/heterosexual Gender Identity: female Meds Home Medications and Allergies Home Medications ?Medication ?Instructions ?Recorded ?Confirmed ?Type alendronate 70 mg tablet 70 mg PO QWEEK 12/01/23 08/17/24 History aspirin 81 mg tablet,delayed 81 mg PO DAILY 12/01/23 08/17/24 History release (Adult Low Dose Aspirin) atorvastatin 40 mg tablet 40 mg PO DAILY 12/01/23 08/17/24 History cetirizine 10 mg tablet 10 mg PO DAILY PRN allergy symptoms 12/01/23 08/17/24 History cholecalciferol (vitamin D3) 125 125 mcg PO DAILY 12/01/23 08/17/24 History mcg (5,000 unit) tablet (Vitamin D3) cyanocobalamin (vitamin B-12) 500 500 mcg PO BID 12/01/23 08/17/24 History mcg tablet (Vitamin B-12) fluticasone propionate 50 2 spray intranasal DAILY 12/01/23 08/17/24 History mcg/actuation nasal spray,suspension furosemide 20 mg tablet 20 mg PO DAILY 12/01/23 08/17/24 History ipratropium 0.5 mg-albuterol 3 mg 3 ml inhalation BID 12/01/23 08/17/24 History (2.5 mg base)/3 mL nebulization soln metformin 500 mg tablet 500 mg PO TID 12/01/23 08/17/24 History metoprolol succinate 25 mg 25 mg PO DAILY 12/01/23 08/17/24 History tablet,extended release 24 hr multivitamin (Daily Multi-Vitamin 1 tab PO DAILY 12/01/23 08/17/24 History tablet) Allergies Allergy/AdvReac Type Severity Reaction Status Date / Time No Known Drug Allergies Allergy Verified 08/17/24 08:56 Exam Constitutional Documenting provider has reviewed patient's vital signs: yes Common normals: no apparent distress, oriented x3, healthy appearing, alert and well nourished General appearance: cooperative HENMT Common normals: normocephalic, hearing grossly normal bilaterally and moist oral mucous membranes Head and scalp: normocephalic Eye Common normals: PERRL Pupil: PERRL Neck & C-Spine Common normals: full ROM General: normal visual inspection Chest Common normals: inspection of chest normal Respiratory Common normals: normal respiratory effort, no retractions and no use of acc essory muscles Back & Pelvis Lumbar spine/lower back: ROM limited, pain with ROM and straight leg raise negative bilaterally Sacroiliac joints: SI joints normal Other: left SIJ negative sakshi(patricks), gaenslens, thigh thrust, compression test strength 5/5 in BLE Extremity Common normals: normal to inspection and full ROM Neuro Common normals: oriented x3, CN's II-XII intact bilaterally, moves all extremities, no focal motor deficits, no sensory deficits noted and deep tendon reflexes 2+ bilaterally Sensorium/orientation: alert Motor exam: strength 5/5 throughout and no movement abnormalities noted Psych Common normals: mental status grossly normal, thought process normal, cooperative, affect normal, speech normal and activity/motor behavior normal Speech: normal speech Thought process: normal thought process Results Imaging Lumbar MRI: Attestation: I have reviewed the pertinent imaging results. Radiologist's impression: DISC LEVELS: 12-L1: No significant disc/facet abnormality, spinal stenosis, or foraminal stenosis. L1-L2: No significant disc/facet abnormality, spinal stenosis, or foraminal stenosis. L2-L3: Early degenerative disc disease is present without focal protrusion or neural impingement. L3-L4: Moderate central canal and mild-moderate foramen narrowing bilaterally. Grade 1 anterior listhesis of L3 on 4 with mild posterior pseudo-disc bulging and mild disc height reduction. Moderate to marked degenerative facet arthropathy and ligamentum flavum thickening bilaterally. L4-L5: Mild central canal and bilateral foramen narrowing. Grade 1 anterolisthesis of L4 on 5 with mild posterior pseudodisc bulging and mild disc height reduction. Marked degenerative facet arthropathy. L5-S1: No significant central canal narrowing. Mild right, moderate left foramen narrowing. Mild diffuse disc bulging slightly eccentric to the left and moderate disc height reduction. Mild to moderate degenerative facet arthropathy. Lumbar Xray: Attestation: I have reviewed the pertinent imaging results. Radiologist's impression: BONES: Grade 1 anterior listhesis of L3 on 4 and of L4 on 5; no change in alignment during flexion and extension. Marked degenerative facet arthropathy L3-L4 through L5-S1 with marked bone encroachment on the neural foramen at L5-S1. DISC SPACES: L3-L4 mild narrowing. L4-L5 moderate narrowing. L5-S1 marked narrowing with prominent posterior disc osteophyte complex narrowing the neural foramen. PARASPINOUS: Negative. No paraspinous abnormality is seen. OTHER: Negative. Additional Findings Additional findings: If on a controlled substance or opioids, I have checked an [facility]AR[facility] report on this patient and there are no aberrancies noted in the prescribing history.??If on a controlled substance or opioid a drug screen was completed and reviewed within the last year, and if there has not been a drug screen completed we ordered one today to monitor higher risk, state monitored pain medication use. As part of providing excellent, safe, comprehensive care, the following was completed at our patient's visit: 1. A medication reconciliation and review to ensure accurate knowledge of current/active medications, including asking our patients to inform us about any [id number] medications or herbal remedies/nutritional sup plements/alternative remedies. 2. A review to specifically ensure our patients have had annual screening for screening for depression, screening for tobacco use, and screening for unhealthy alcohol use. For concerning screenings had a discussion with the patient, provided patient education, and recommended follow-up with primary care provider when appropriate. If patient noted with a risk of falling, they received education on strength, gait, and balance training to prevent future risk of falling. Assessment and Plan Assessment and Plan (1) Sacroiliitis: (2) Lumbar stenosis with neurogenic claudication: (3) Lumbar radiculopathy: Plan >90% improvement in pain and funcitonal ability with interventional therapy, OMLAN significantly improved previously 66% now 22% continue HEP as tolerated continue tylenol/ASA PRN f/u 3 months, sooner if needed
== END 2024-08-26 12:47 | disposition home or self-care (01) ==
LOC: PM 12:47
PROVIDERS: PCP Internal Medicine; Visit Provider Nurse Practitioner
DX: M46.1 Sacroiliitis, not elsewhere classified (principal); M48.062 Spinal stenosis, lumbar region with neurogenic claudication; M54.16 Radiculopathy, lumbar region
CPT/HCPCS: G0463

== ENCOUNTER 2024-11-18 12:20 | Outpatient (OUT) | payer MEDICARE, SELFPAY ==
--- NOTE | 2024-11-18 12:33 | P.CN_ITS ---
Consult Note: HPI Data of Consult Patient: known to practice within the last 3 years Requesting Physician: Stormy Reyes NP Primary Care Provider: BRIANDA MILLER Consult Narrative Reason for consult: f/u Narrative: Siria Petty a pleasant 74 year old female presents for evaluation and management of chronic low back pain with pain radiating into left hip and left leg. Pain 0/10 at this time increasing to 2/10 with standing walking and sleep, improved with rest. Failed tylenol, cannot take NSAIDs as she has had gastric bypass surgery. Has engaged in provider guided HEP greater than 6 weeks with worsening of her pain. denies loss of bowel/bladder. hx of lumbar bulging discs that responded well to ESIs in the past, recent lumbar xray and MRI as noted below. recently underwent Left L4/5 L5/S1 TFESI under fluoroscopy with >90% improvement in NC and radicular pain and left SIJ injection with >90% improvement ongoing. cc:: CC: Stormy Reyes NP Review of Systems ROS Status of ROS 10 or more systems reviewed and unremark able except as noted in history and below [facility] Medical History (Updated 06/25/24 @ 14:17 by Stormy Reyes NP) Iron deficiency anemia ?D50.9 - Iron deficiency anemia, unspecified (ICD-10) Type 2 diabetes mellitus with hyperglycemia ?E11.65 - Type 2 diabetes mellitus with hyperglycemia (ICD-10) Left sided sciatica ?M54.32 - Sciatica, left side (ICD-10) CAD (coronary artery disease) ?I25.10 - Atherosclerotic heart disease of [place] coronary artery without angina pectoris (ICD-10) Chronic heart failure with preserved ejection fraction (HFpEF) ?I50.32 - Chronic diastolic (congestive) heart failure (ICD-10) HTN (hypertension) ?I10 - Essential (primary) hypertension (ICD-10) COPD (chronic obstructive pulmonary disease) ?J44.9 - Chronic obstructive pulmonary disease, unspecified (ICD-10) Acute pelvic pain ?R10.2 - Pelvic and perineal pain (ICD-10) Diabetic acidosis, type I ?E10.10 - Type 1 diabetes mellitus with ketoacidosis without coma (ICD-10) Asthma ?J45.909 - Unspecified asthma, uncomplicated (ICD-10) Surgical History H/O lithotripsy ?Z98.890 - Other specified postprocedural states (ICD-10) Gastric bypass status for obesity ?Z98.84 - Bariatric surgery status (ICD-10) History of total left hip arthroplasty ?Z96.642 - Presence of left artificial hip joint (ICD-10) Family History Sister Family history of cancer Family history of diabetes mellitus Mother Family history of diabetes mellitus Family history of hypertension Social History Smoking status: Former smoker Second hand tobacco smoke exposure: No Non-prescribed substance use: denies use Previous occupational history: retired Known occupational exposures/hazards: No Highest level of school completed/degree received: high school graduate Do you want help with school or training: No Are you now , , , , never or living with a partner: In a typical week, how many times do you talk on the telephone with family, friends, or neighbors: 3 or more times per week How often do you get together with friends or relatives: 3 or more times per week How often do you attend mu-ism or jehovah's witness services: 4 or more times per year Do you belong to any clubs or organizations such as mu-ism groups unions, [email or web address] or athletic groups, or school groups: no Total score: 3 Score interpretation: A score of greater than or equal to 2 indicates the lowest level of social isolation. Little interest or pleasure in doing things: not at all Feeling down, depressed, or hopeless: not at all Feel stressed/tense/nervous/anxious/difficulty sleeping: not at all Due to disability, difficulty making decisions: No Do you think of yourself as: straight/heterosexual Gender Identity: female Meds Home Medications and Allergies Home Medications ?Medication ?Instructions ?Recorded ?Confirmed ?Type alendronate 70 mg tablet 70 mg PO QWEEK 12/01/23 08/17/24 History aspirin 81 mg tablet,delayed 81 mg PO DAILY 12/01/23 08/17/24 History release (Adult Low Dose Aspirin) atorvastatin 40 mg tablet 40 mg PO DAILY 12/01/23 08/17/24 History cetirizine 10 mg tablet 10 mg PO DAILY PRN allergy symptoms 12/01/23 08/17/24 History cholecalciferol (vitamin D3) 125 125 mcg PO DAILY 12/01/23 08/17/24 History mcg (5,000 unit) tablet (Vitamin D3) cyanocobalamin (vitamin B-12) 500 500 mcg PO BID 12/01/23 08/17/24 History mcg tablet (Vitamin B-12) fluticasone propionate 50 2 spray intranasal DAILY 12/01/23 08/17/24 History mcg/actuation nasal spray,suspension furosemide 20 mg tablet 20 mg PO DAILY 12/01/23 08/17/24 History ipratropium 0.5 mg-albuterol 3 mg 3 ml inhalation BID 12/01/23 08/17/24 History (2.5 mg base)/3 mL nebulization soln metformin 500 mg tablet 500 mg PO TID 12/01/23 08/17/24 History metoprolol succinate 25 mg 25 mg PO DAILY 12/01/23 08/17/24 History tablet,extended release 24 hr multivitamin (Daily Multi-Vitamin 1 tab PO DAILY 12/01/23 08/17/24 History tablet) Allergies Allergy/AdvReac Type Severity Reaction Status Date / Time No Known Drug Allergies Allergy Verified 08/17/24 08:56 Exam Constitutional Documenting provider has reviewed patient's vital signs: yes Common normals: no apparent distress, oriented x3, healthy appearing, alert and well nourished General appearance: cooperative HENMT Common normals: normocephalic, hearing grossly normal bilaterally and moist oral mucous membranes Head and scalp: normocephalic Eye Common normals: PERRL Pupil: PERRL Neck & C-Spine Common normals: full ROM General: normal visual inspection Chest Common normals: inspection of chest normal Respiratory Common normals: normal respiratory effort, no retractions and no use of acc essory muscles Back & Pelvis Lumbar spine/lower back: ROM limited, pain with ROM and straight leg raise negative bilaterally Sacroiliac joints: SI joints normal Other: left SIJ negative sakshi(patricks), gaenslens, thigh thrust, compression test strength 5/5 in BLE Extremity Common normals: normal to inspection and full ROM Neuro Common normals: oriented x3, CN's II-XII intact bilaterally, moves all extremities, no focal motor deficits, no sensory deficits noted and deep tendon reflexes 2+ bilaterally Sensorium/orientation: alert Motor exam: strength 5/5 throughout and no movement abnormalities noted Psych Common normals: mental status grossly normal, thought process normal, cooperative, affect normal, speech normal and activity/motor behavior normal Speech: normal speech Thought process: normal thought process Results Imaging Lumbar MRI: Attestation: I have reviewed the pertinent imaging results. Radiologist's impression: DISC LEVELS: 12-L1: No significant disc/facet abnormality, spinal stenosis, or foraminal stenosis. L1-L2: No significant disc/facet abnormality, spinal stenosis, or foraminal stenosis. L2-L3: Early degenerative disc disease is present without focal protrusion or neural impingement. L3-L4: Moderate central canal and mild-moderate foramen narrowing bilaterally. Grade 1 anterior listhesis of L3 on 4 with mild posterior pseudo-disc bulging and mild disc height reduction. Moderate to marked degenerative facet arthropathy and ligamentum flavum thickening bilaterally. L4-L5: Mild central canal and bilateral foramen narrowing. Grade 1 anterolisthesis of L4 on 5 with mild posterior pseudodisc bulging and mild disc height reduction. Marked degenerative facet arthropathy. L5-S1: No significant central canal narrowing. Mild right, moderate left foramen narrowing. Mild diffuse disc bulging slightly eccentric to the left and moderate disc height reduction. Mild to moderate degenerative facet arthropathy. Lumbar Xray: Attestation: I have reviewed the pertinent imaging results. Radiologist's impression: BONES: Grade 1 anterior listhesis of L3 on 4 and of L4 on 5; no change in alignment during flexion and extension. Marked degenerative facet arthropathy L3-L4 through L5-S1 with marked bone encroachment on the neural foramen at L5-S1. DISC SPACES: L3-L4 mild narrowing. L4-L5 moderate narrowing. L5-S1 marked narrowing with prominent posterior disc osteophyte complex narrowing the neural foramen. PARASPINOUS: Negative. No paraspinous abnormality is seen. OTHER: Negative. Additional Findings Additional findings: If on a controlled substance or opioids, I have checked an [facility]AR[facility] report on this patient and there are no aberrancies noted in the prescribing history.??If on a controlled substance or opioid a drug screen was completed and reviewed within the last year, and if there has not been a drug screen completed we ordered one today to monitor higher risk, state monitored pain medication use. As part of providing excellent, safe, comprehensive care, the following was completed at our patient's visit: 1. A medication reconciliation and review to ensure accurate knowledge of current/active medications, including asking our patients to inform us about any [id number] medications or herbal remedies/nutritional sup plements/alternative remedies. 2. A review to specifically ensure our patients have had annual screening for screening for depression, screening for tobacco use, and screening for unhealthy alcohol use. For concerning screenings had a discussion with the patient, provided patient education, and recommended follow-up with primary care provider when appropriate. If patient noted with a risk of falling, they received education on strength, gait, and balance training to prevent future risk of falling. Assessment and Plan Assessment and Plan (1) Sacroiliitis: (2) Lumbar stenosis with neurogenic claudication: (3) Lumbar radiculopathy: Plan >90% improvement in pain and funcitonal ability with interventional therapy, OLMAN significantly improved previously 66%, 22%, now 8% continue HEP as tolerated continue tylenol/ASA PRN f/u PRN
== END 2024-11-18 12:21 | disposition home or self-care (01) ==
LOC: PM 12:21
PROVIDERS: PCP Internal Medicine; Visit Provider Nurse Practitioner
DX: M46.1 Sacroiliitis, not elsewhere classified (principal); M48.062 Spinal stenosis, lumbar region with neurogenic claudication; M54.16 Radiculopathy, lumbar region
CPT/HCPCS: G0463

== ENCOUNTER 2025-09-17 12:37 | Outpatient (OUT) | payer MEDICARE, SELFPAY ==
--- OUTSIDE RECORDS SUMMARY | 2025-09-17 12:41 | XMS_ITS | CCD ---
Author Organization [facility] Care Team Providers Care Systems Management Consultant Name Role Phone Vick KRAUS MD, Tyshawn Primary Care Provider Pb Sanabria Vick KRAUS MD, Daniel Primary Care Provider BROOK .ALEXANDRA Consulting Unavailable VICK, DR LAMAR Primary Care Unavailable HAY ., DR CHEN Admitting Unavailable RENE ., DR CHEN Attending Unavailable TAMMIE, DR ROLA Rios Admitting Unavailable VICK, DR LAMAR Primary Care Unavailable TAMMIE, DR ROLA Rios Attending Unavailable TAMMIE, DR ROLA Rios Consulting Unavailable PAT, SOPHIA Consulting Unavailable RENE ., DR CHEN Admitting Unavailable VICK, DR LAMAR Primary Care Unavailable EUNICE ., MIRA PONCE Consulting Unavailkrystle e HAY ., DR CHEN Attending Unavailable CHEN ZAMORANO [...] Attending Unavailable VICK, DR LAMAR Consulting Unavailable HICKMAN, DR LAMAR Primary Care Unavailable ZIEBER, DR NITIN Rios Consulting Unavailable VICK, DR LAMAR Primary Care Unavailable HAY ., DR CHEN Admitting Unavailable HAY ., DR CHEN Attending Unavailable HAY ., DR CHEN Consulting Unavailable LUKE BLACKWOOD Consulting Unavailable NAYANA Hickman Primary Care Provider MD Pb Sanabria Attending Provider Pb Sanabria Attending Unavailable Pb Sanabria Admitting Unavailable Tyshawn Hickman Primary Care Unavailable TYSHAWN HICKMAN Primary Care Physician Timmis, Yuli H Referring Unavailable Timmis, Yuli H Attending Unavailable Timmis, Yuli H Admitting Unavailable Vick KRAUS MD, Daniel Primary Care Provider [phone] JEYSON LEW Attending Unavailable JEYSON LEW Referring Unavailable VICK KRAUS, TYSHAWN Primary Care Unavailable ADALI, JEYSON Referring Unavailable VICK KRAUS, TYSHAWN Primary Care Unavailable JEYSON LEW Attending Unavailable SELF, SELF Referring Unavailable VICK KRAUS, TYSHAWN Primary Care Unavailable JEYSON LEW Attending Unavailable JEYSON LEW Referring Unavailable VICK KRAUS, TYSHAWN Primary Care Unavailable JEYSON LEW Attending Unavailable Mara ALBERTS, Erich Wills Attending Unavailable Mara ALEBRTS, Erich Wills Attending Unavailable Tyshawn Hickman MD Primary Care Provider Tyshawn Hickman MD Unavailable Lata Lennon RN Unavailable [phone] Tyshawn Hickmna MD Unavailable Wally MAURICIO, Gillian Unavailable Unavailable TYSHAWN HICKMAN Attending Unavailable SHANIKA MERIDA Referring Unavailable SHANIKA MERIDA Attending Unavailable TYSHAWN HICKMAN Attending Unavailable TYSHAWN HICKMAN Attending Unavailable TYSHAWN HICKMAN Attending Unavailable TYSHAWN HICKMAN B Referring Unavailable TYSHAWN HICKMAN B Referring Unavailable TYSHAWN HICKMAN Attending Unavailable SHANIKA MERIDA Attending Unavailable TYSHAWN HICKMAN Referring Unavailable Allergies Allergy Classification Reported Allergen(s) Allergy Type Date of Onset Reaction(s) Facility (2 sources) Cat Hair Extract Drug Allergy 3 [facility] (20 sources) Cat Hair Extract Propensity to adverse reactions 3 Unknown, Itching, Runny nose [facility] Work Phone: Medications Current Medications Medication Drug Class(es) Dates [...] acetaminophen daily. 10 tablet 0 11/14/2021 Active [id number] 200 actuat albuterol 0.09 mg/actuat metered dose inhaler (20 sources) beta2-Adren ergic Agonist Start: 03-31-2025 End: 03-31-2026 take 2 puff(s) by inhalation every four hours for wheezing albuterol HFA (Ventolin HFA) 90 mcg/act inhaler Indications: Moderate persistent asthma without complication (HCC) Inhale 2 puffs every 4 (four) hours if needed for wheezing or shortness of breath 18 g 5 03/31/2025 03/31/2026 Active Start: 02-04-2024 End: 04-12-2025 albuterol (2.5 MG/3ML) 0.083 % nebulizer solution Indications: Panlobular emphysema (CMS/HCC) Take 3 mL (2.5 mg) by nebulization every 6 (six) hours if needed for wheezing or shortness of breath 75 mL 3 02/04/2024 04/12/2025 Discontinued (Therapy completed) Start: 10-04-2021 Albuterol Acti ve 90 MCG INHALATION As Directed October 03, 2021 11:00pm albuterol 108 (9 0 Base) MCG/ACT Aero Soln inhaler as needed. 0 Active albuterol 0.833 mg/ml / ipratropium bromide 0.167 mg/ml inhalation solution (20 sources) Anticholinergic, beta2-Adrenergic Agonist Start: 01-06-2025 End: 04-12-2026 ipratropium-albuterol (Duo-Neb) 0.5-2.5 mg/3 mL nebulizer solution Indications: Chronic obstructive pulmonary disease, unspecified COPD type (HCC) Take 3 mL by nebulization 4 (four) times a day as needed for wheezing or shortness of breath 180 mL 3 04/12/2025 04/12/2026 Active Start: 06-20-2023 ipratropium-al buterol (Duo-Neb) 0.5-2.5 mg/3 mL nebulizer solution Indications: Chronic obstructive pulmonary disease, unspecified COPD type (CMS/HCC) Take 3 mL by nebulization 4 (four) times a day as needed for wheezing or shortness of breath. 180 mL 11 06/20/2023 Active ipratropium-albu terol 0.5-2.5 (3) MG/3ML nebulizer solution ipratropium 0.5 mg-albuterol 3 mg (2.5 mg base)/3 mL nebulization soln 0 Active Ipratropium-Albu terol Active alendronic acid 70 mg oral tablet (20 sources) Bisphosphonate Start: 09-10-2025 End: 09-10-2026 take 1 tablet by mouth in the morning alendronate (Fosamax) 70 MG tablet Indications: Osteopenia, unspecified location Take 1 tablet (70 mg) by mouth every 7 (seven) days Take in the morning with a full glass of water, on an empty stomach, and do not take anything else by mouth or lie down for the next 30 min. 12 tablet 3 09/10/2025 09/10/2026 Active Start: 10-04-2021 End: 09-10-2025 take 1 tablet by mouth every week alendronate (Fosamax) 70 MG tablet Indications: Osteopenia, unspecified location TAKE 1 TABLET BY MOUTH WEEKLY WITH 8 OZ OF PLAIN WATER 30 MINUTES BEFORE FIRST FOOD, DRINK OR MEDS. STAY UPRIGHT FOR 30 MINS 12 tablet 3 07/01/2024 09/10/2025 Discontinued (Reorder) alendronate 70 M G tablet every 7 days. 0 Active Alendronate Sodi um Active {1 (ascorbic acid 7540 MG / polyethylene glycol 3350 13375 MG / potassium chloride 1200 MG / sodium ascorbate 48090 MG / sodium chloride 3200 MG Powder for Oral Solution) / 1 (polyethylene glycol 3350 359238 MG / potassium chloride 1000 MG / [...] MG PO Daily October 03, 2021 11:00pm take 1 tablet by codi th once daily aspirin (ASPIR) 81 MG EC tablet Take 81 mg by mouth 1 (one) time each day at the same time Active aspirin 81 MG Ch ew Tab chewable tablet Chew 81 mg daily. 0 Active atorvastatin 40 mg oral tablet (20 sources) HMG-CoA Reductase Inhibitor Start: 10-04-2021 End: 09-10-2026 take 1 tablet by mouth at bedtime atorvastatin (Lipitor) 40 MG tablet Indications: Mixed hyperlipidemia Take 1 tablet (40 mg) by mouth at bedtime 90 tablet 3 09/10/2025 09/10/2026 Active Atorvastatin Sarah cium Active Blood Glucose Calibration (OneTouch Ultra) liquid (20 sources) Start: 12-02-2023 Blood Glucose Calibration (OneTouch Ultra) liquid 12/02/2023 Active Blood Glucose Monitoring Suppl (ONE TOUCH ULTRA 2) w/Device kit (20 sources) Start: 06-05-2023 Blood Glucose Monitoring Suppl (ONE TOUCH ULTRA 2) w/Device kit 06/05/2023 Active calcium carbonate 1500 mg / cholecalciferol 200 unt oral tablet (13 sources) Vitamin D take 2 tablets by mouth once daily calcium citrate 600 mg and vitamin D3 (Citrical & Minerals + Vit D) 600-200 MG-UNIT tablet Take 2 tablets by mouth Daily Active calcium citrate 1040 mg oral tablet (14 sources) Calcium Citrate 1040 MG tablet Take 600 mg by mouth daily. 0 Active calcium citrate 600 mg and vitamin D3 (Citrical & Minerals + Vit D) 600-200 MG-UNIT tablet (11 sources) take 2 tablets by mouth once daily in the morning calcium citrate 600 mg and vitamin D3 (Citrical & Minerals + Vit D) 600-200 MG-UNIT tablet Take 2 tablets by mouth in the morning. Active cephalexin 500 mg oral capsule (1 source) Cephalosporin Antibacterial Start: 11-14-2021 End: 11-15-2021 take 1 capsule by mouth every six hours cephALEXin 500 MG capsule Take 1 capsule by mouth every 6 hours for 3 doses. Start 6 hours after last dose of iv antibiotics. 3 capsule 0 11/14/2021 11/15/2021 Active cetirizine hydrochloride 10 mg oral tablet (20 sources) Histamine-1 Receptor Antagonist Start: 04-27-2025 End: 07-26-2026 take 1 tablet by mouth once daily cetirizine (ZyrTEC) 10 MG tablet Indications: Non-seasonal allergic rhinitis, unspecified trigger Take 1 tablet (10 mg) by mouth Daily 90 tablet 3 07/26/2025 07/26/2026 Active Start: 01-20-2024 End: 01-19-2025 take 1 tablet by mouth once daily as needed cetirizine (ZyrTEC) 10 MG tablet Indications: Non-seasonal allergic rhinitis, unspecified trigger Take 1 tablet (10 mg) by mouth Daily as needed for allergies 30 tablet 11 01/20/2024 Active cholecalciferol 0.125 mg oral tablet (20 sources) Vitamin D take 1 tablet by mouth once daily cholecalciferol (D3-5) 5,000 Units tablet Take 5,000 Units by mouth Daily Active take 1 tablet by mouth in the mo rning cholecalciferol (D3-5) 5,000 Units tablet Take 5,000 Units by mouth in the morning. Active colchicine 0.6 mg oral capsule (20 sources) Start: 05-03-2025 End: 05-14-2025 take 1 capsule by mouth twice daily as needed, then take 1 capsule by mouth twice daily as needed Colchicine 0.6 MG capsule Indications: Gout of foot, unspecified cause, unspecified chronicity, unspecified laterality Take 1 capsule by mouth 2 (two) times a day as needed (Take 1 tablet PO twice daily during gout flares) 60 capsule 2 05/14/2025 Active End: 12-09-2024 take 1 capsule by mouth twice daily as needed, then take 1 capsule by mouth twice daily as needed Colchicine 0.6 MG capsule Take 1 capsule by mouth 2 (two) times a day as needed (Take 1 tablet PO twice daily during gout flares). 12/09/2024 Discontinued (Therapy completed) Colchicine Activ e 1 ml dexamethasone phosphate [...] 100 mg oral capsule (14 sources) Start: 021 End: 021 take 1 capsule by mouth twice daily docusate 100 MG capsule Take 1 capsule by mouth 2 times daily. 60 capsule 0 11/14/2021 Active famotidine 20 mg oral tablet (8 sources) Histamine-2 Receptor Antagonist Start: 023 End: 025 take 1 tablet by mouth in the morning famotidine (Pepcid) 20 MG tablet Indications: LPRD (laryngopharyngeal reflux disease) Take 1 tablet (20 mg) by mouth in the morning and 1 tablet (20 mg) before bedtime. 180 tablet 10/07/2023 12/09/2024 Discontinued ferrous sulfate 325 mg oral tablet (20 sources) Start: 025 End: 026 take 1 tablet by mouth at mealtime ferrous sulfate 325 (65 Fe) MG tablet Indications: Iron deficiency anemia due to chronic blood loss Take 1 tablet (325 mg) by mouth in the morning. Take with meals. 90 tablet 3 05/14/2025 05/14/2026 Active Start: 10-04-2021 take 1 tablet by codi th three times daily Ferrous Sulfate (Iron) 325 mg (65 mg iron) Tablet Active 325 MG PO Three times daily October 03, 2021 11:00pm Ferrous Sulfate (IRON PO) 3 times daily. 0 Active fluticasone propionate 0.05 mg/actuat metered dose nasal spray (20 sources) Corticosteroid Start: 11-04-2023 End: 11-03-2024 take 2 spray(s) nasal route in the morning fluticasone (Flonase) 50 MCG/ACT nasal spray Indications: Chronic maxillary sinusitis Administer 2 sprays into each nostril in the morning. Shake gently. Before first use, prime pump. After use, clean tip and replace cap.. 16 g 11 11/04/2023 Active End: 08-01-2022 fluticasone 50 MCG/ACT Suspe nsion nasal spray fluticasone propionate 50 mcg/actuation nasal spray,suspension 0 08/01/2022 Discontinued (Medication Reconciliation (suppress cancel msg)) 30 actuat fluticasone furoate 0.1 mg/actuat / umeclidinium 0.0625 mg/actuat / vilanterol 0.025 mg/actuat dry powder inhaler (6 sources) Anticholinergic, Corticosteroid, beta2-Adrenergic Agonist Start: 01-13-2025 Mzhlnkbioeh-Klsrzmjex-Xmfljy (Trelegy Ellipta) 100-62.5-25 MCG/ACT aerosol powder Indications: Moderate persistent asthma without complication (CMS/HCC) Inhale 1 Inhalation Daily 3 each 3 01/13/2025 Active Start: 01-13-2025 Fluticasone-Um eclidin-Vilant (Trelegy Ellipta) 100-62.5-25 MCG/ACT aerosol powder Indications: Moderate persistent asthma without complication (CMS/HCC) Inhale 1 Inhalation Daily 3 each 3 01/13/2025 Active Start: 09-28-2024 End: 12-09-2024 take 1 dose by inhalation once daily Piljfrbzcgo-Cdfsaghmb-Lpmzzg (Trelegy Ellipta) 100-62.5-25 MCG/ACT aerosol powder Indications: Moderate persistent asthma without complication (CMS/HCC) Inhale 1 Inhalation Daily 1 each 11 09/28/2024 12/09/2024 Discontinued (Side effects) furosemide 20 mg oral tablet (20 sources) Loop Diuretic Start: 04-29-2024 End: 09-10-2026 take 1 tablet by mouth in the morning furosemide (Lasix) 20 MG tablet Indications: Diastolic CHF with preserved left ventricular function, NYHA class 2 (HCC) Take 1 tablet (20 mg) by mouth in the morning and 1 tablet (20 mg) before bedtime. 180 tablet 3 09/10/2025 09/10/2026 Active Start: 10-04-2021 take 20 mg by mouth once daily Furosemide Active 20 MG PO Daily October 03, 2021 11:00pm Furosemide Activ e hydrocortisone 25 mg/ml topi sarah lotion (16 sources) Corticosteroid hydrocortisone 2 .5 % Lotion Apply topically as needed. 0 Active Hydrocortisone A ctive Iron (2 sources) Iron Active metFORMIN hydrochloride 500 mg oral tablet (20 sources) Biguanide Start: 04-29-2024 take 1 tablet by mouth three times daily metFORMIN (Glucophage) 500 MG tablet Indications: Type 2 diabetes mellitus with hyperglycemia, without long-term current use of insulin (HCC) TAKE 1 TABLET BY MOUTH WITH A MEAL 3 TIMES DAILY 300 tablet 2 04/29/2024 Active Start: 10-04-2021 take 500 mg by mouth twice cecelia ly Metformin Active 500 MG PO Twice daily October 03, 2021 11:00pm metFORMIN 500 MG tablet 3 times daily. 0 Active take 1 tablet by codi th every twenty-four hours 24 hr metoprolol succinate 25 mg extended release oral tablet (20 sources) beta-Adrenergic Donnie Start: 10-04-2021 End: 09-10-2026 take 1 tablet by mouth once daily metoprolol succinate XL (Toprol-XL) 25 MG 24 hr tablet Indications: Chronic diastolic heart failure (HCC) Take 1 tablet (25 mg) by mouth Daily Do not crush or chew. 90 tablet 3 09/10/2025 09/10/2026 Active Metoprolol Succi paras ER Active Multiple Vitamins-Minerals (MULTIVITAMIN ADULTS 50+ PO) (17 sources) Multiple Vitamin s-Minerals (MULTIVITAMIN ADULTS 50+ PO) Take by mouth Active multivitamin tablet (14 sources) take 1 tablet by mouth once daily multivitamin tablet Take 1 tablet by mouth daily. 0 Active multivitamin-children's (EQ Complete) 18 MG chewable tablet (8 sources) End: 12-09-2024 multivitamin-children's (EQ Complete) 18 MG chewable tablet Chew 1 tablet 1 (one) time each day at the same time. 12/09/2024 Discontinued multivitamin-chi ldren's (EQ Complete) 18 MG chewable tablet Chew 1 tablet 1 (one) time each day at the same time. Active Nystatin (2 sources) Polyene Antifungal Nystatin Active nystatin 993205 unt/ml / triamcinolone acetonide 1 mg/ml topical cream (20 sources) Polyene Antifungal, Corticosteroid nystatin-triamcinolo ne (Mycolog II) cream Apply topically every 12 (twelve) hours Active nystatin-triamci nolone 715491-8.1 UNIT/GM-% Ointment as needed. 0 Active omeprazole 20 mg delayed release oral capsule (13 sources) Proton Pump Inhibitor Start: 11-14-2021 take 1 capsule by mouth once daily omeprazole [address] capsule Take 1 capsule by mouth daily. 30 capsule 0 11/14/2021 Active ondansetron 4 mg oral tablet (14 sources) Serotonin-3 Receptor Antagonist Start: 11-14-2021 take 1 tablet by mouth every eight [...] 20 tablet 0 11/14/2021 Active vitamin b12 0.5 mg oral tablet (20 sources) Vitamin B12 take 1 tablet by mouth once daily cyanocobalamin (Vitamin B-12) 500 MCG tablet Take 500 mcg by mouth Daily Active take 2 tablets by mouth every mo nth cyanocobalamin 1000 MCG tablet Take 500 mcg by mouth. Once or twice/month 0 Active Completed/Discontinued Medications Medication Drug Class(es) Dates Sig (Normalized) Sig (Original) bisacodyl 10 mg rectal suppository (1 source) Stimulant Laxative Start: 11-14-20 End: 11-14-20 bisacodyl (DULCOLAX) suppository 10 mg 60 actuat budesonide 0.08 mg/actuat / formoterol fumarate 0.0045 mg/actuat metered dose inhaler (3 sources) Corticosteroid, beta2-Adrenergic Agonist Start: 02-04-20 End: 02-04-20 take 2 puff(s) by inhalation in the morning budesonide-formoterol (Symbicort) 80-4.5 MCG/ACT inhaler Indications: Panlobular emphysema (CMS/HCC) Inhale 2 puffs in the morning and 2 puffs before bedtime. Rinse mouth with water after use to reduce aftertaste and incidence of candidiasis. Do not swallow.. 3 each 3 02/03/2025 03/31/2025 Discontinued bupivacaine hydrochloride 2.5 mg/ml injectable solution (2 [...] Discharge) docusate sodium 50 mg / sennosides, snf 8.6 mg oral tablet (1 source) Start: 11-14-20 End: 11-14-20 senna-docusate (SENOKOT-S) 8.6-50 MG per tablet 2 tablet 1 ml HYDROmorphone hydrochloride 1 mg/ml cartridge [...] Classification Problem Date Documented Da te Episodic/Chronic Administrative/social admission (2 sources) Patient encounter status; Translations: [Other specified counseling] 04-12-2025 Episodic Asthma (20 sources) Uncomplicated moderate persistent asthma; Translations: [Moderate persistent asthma, uncomplicated] Onset: 4 09-28-2024 Chronic Chronic obstructive pulmonary disease and bronchiectasis (20 sources) Chronic obstructive pulmonary disease, unspecified; Translations: [Chronic obstructive lung disease] Onset: 2 Resolved: 4 05-31-2023 Chronic Chronic ulcer of skin (20 sources) Pressure ulcer of buttock; Translations: [Pressure ulcer of unspecified buttock, unspecified stage] Onset: 3 05-31-2023 Chronic Complication of device; implant or graft (1 source) Pain due to hip joint prosthesis; Translations: [Pain due to internal orthopedic prosthetic devices, implants and grafts, sequela] Episodic Congestive heart failure; nonhypertensive (20 sources) Chronic diastolic heart failure; Translations: [Chronic diastolic (congestive) heart failure] Onset: 3 Resolved: 5 05-31-2023 Chronic Deficiency and other anemia (20 sources) Iron deficiency anemia due to blood loss; Translations: [Iron deficiency anemia secondary to blood loss (chronic)] Onset: 3 05-31-2023 Chronic Deficiency and other anemia (20 sources) Iron deficiency anemia; Translations: [Iron deficiency anemia, unspecified] Onset: 3 05-31-2023 Episodic Diabetes mellitus with complications (20 sources) Diabetic peripheral neuropathy; Translations: [Type 2 diabetes mellitus with diabetic polyneuropathy] Onset: 3 05-31-2023 Chronic Disorders of lipid metabolism (20 sources) Mixed hyperlipidemia; Translations: [Mixed hyperlipidemia] Onset: 3 05-31-2023 Chronic Diverticulosis and diverticulitis (20 sources) Diverticulosis of intestine, part unspecified, without perforation or abscess without bleeding; Translations: [Diverticulosis of colon] Onset: 2 05-31-2023 Chronic Esophageal disorders (20 sources) Laryngopharyngeal reflux; Translations: [Gastro-esophageal reflux disease without esophagitis] Onset: 3 10-07-2023 Chronic Essential hypertension (20 sources) Essential (primary) hypertension; Translations: [Benign essential hypertension] Onset: 2 05-31-2023 Chronic Gout and other crystal arthropathies (20 sources) Gout; Translations: [Gout, unspecified] Onset: 3 05-31-2023 Chronic Heart valve disorders (20 sources) Aortic murmur; Translations: [Other nonrheumatic aortic valve disorders] Onset: 3 05-31-2023 Chronic Immunizations and screening for infectious disease (5 sources) Encounter for immunization; Translations: [Needs influenza immunization] Onset: 2 09-10-2024 Episodic Menopausal disorders (20 sources) Other primary ovarian failure; Translations: [Disorder associated with menstruation AND/OR menopause] Onset: 3 05-31-2023 Chronic Miscellaneous mental health disorders (20 sources) Chronic insomnia; Translations: [Psychophysiologic insomnia] Onset: 5 Resolved: 5 Chronic Mood disorders (20 sources) Depressive disorder; Translations: [Depressive disorder] Onset: 3 05-31-2023 Chronic Nonmalignant breast conditions (20 sources) Fibrocystic disease of breast; Translations: [Diffuse cystic mastopathy of unspecified breast] Onset: 3 05-31-2023 Chronic Nutritional deficiencies (20 sources) Vitamin D deficiency; Translations: [Vitamin D deficiency, unspecified] Onset: 3 05-31-2023 Chronic Osteoarthritis (20 sources) Osteoarthritis of left hip joint; Translations: [Unilateral primary osteoarthritis, left hip] Onset: 2 Chronic Osteoporosis (1 source) Age-related osteoporosis without current pathological fracture; Translations: [AGE-REL OSTEOPOR W/O CURR PATH FX] Onset: 3 Chronic Other and ill-defined heart disease (20 sources) Diastolic dysfunction; Translations: [Other ill-defined heart diseases] Onset: 3 05-31-2023 Chronic Other bone disease and musculoskeletal deformities (20 sources) Osteopenia; Translations: [Other specified disorders of bone density and structure, unspecified site] Onset: 3 05-31-2023 Episodic Other connective tissue disease (4 sources) History of total replacement of left hip joint; Translations: [Presence of left artificial hip joint] Chronic Other connective tissue disease (20 sources) History of total hip arthroplasty; Translations: [Presence of left artificial hip joint] Onset: 3 05-31-2023 Chronic Other connective tissue disease (1 source) Trigger finger of left hand; Translations: [Trigger finger, unspecified finger] Episodic Other gastrointestinal disorders (20 sources) Irritable bowel syndrome; Translations: [Irritable bowel syndrome without diarrhea] Onset: 3 05-31-2023 Chronic Other hereditary and degenerative nervous system conditions (2 sources) Restless legs; Translations: [Restless legs syndrome] Chronic Other hereditary and degenerative nervous system conditions (2 sources) Restless legs syndrome Onset: 1 Resolved: 1 Chronic Other liver diseases (20 sources) Fatty (change of) liver, not elsewhere classified; Translations: [Other chronic nonalcoholic liver disease] Onset: 3 05-31-2023 Chronic Other liver diseases (2 sources) Cirrhosis of liver; Translations: [Unspecified cirrhosis of liver] 04-12-2025 Chronic Other lower respiratory disease (2 sources) Imaging of lung abnormal ; Translations: [Other nonspecific abnormal finding of lung field] 12-09-2024 Episodic Other nervous system disorders (20 sources) Chronic pain; Translations: [Other chronic pain] Onset: 3 05-31-2023 Chronic Other nervous system disorders (1 source) Other acute postprocedural pain; Translations: [Pain in joint, lower leg] Episodic Other nutritional; endocrine; and metabolic disorders (20 sources) Body mass index 30+ - obesity; Translations: [Body mass index (BMI) 34.0-34.9, adult] Onset: 3 05-31-2023 Chronic Other nutritional; endocrine; and metabolic disorders (20 sources) Disorder of mineral metabolism; Translations: [Disorder of mineral metabolism, unspecified] Onset: 3 05-31-2023 Chronic Other nutritional; endocrine; and metabolic disorders (20 sources) Obesity caused by energy imbalance; Translations: [Class 1 obesity due to excess calories with serious comorbidity and body mass index (BMI) of 30.0 to 30.9 in adult] Onset: 3 10-02-2023 Chronic Other nutritional; endocrine; and metabolic disorders (1 source) Body mass index (BMI) 33.0-33.9, adult; Translations: [Body Mass Index 33.0-33.9, adult] 10-06-2024 Chronic Other screening for suspected conditions (not mental disorders or infectious disease) (20 sources) Coag./bleeding tests abnormal; Translations: [Abnormal coagulation profile] Onset: 2 Episodic Other upper respiratory disease (20 sources) Allergic rhinitis; Translations: [Allergic rhinitis, unspecified] Onset: 3 05-31-2023 Chronic Other upper respiratory infections (20 sources) Chronic sinusitis; Translations: [Chronic sinusitis, unspecified] Onset: 3 05-31-2023 Chronic Prolapse of female genital organs (20 sources) Disorder of rectum; Translations: [Rectocele] Onset: 3 05-31-2023 Chronic Residual codes; unclassified (3 sources) Obstructive sleep apnea (adult) (pediatric); Translations: [Obstructive sleep apnea (adult)(pediatric)] Onset: 1 Resolved: 1 Chronic Residual codes; unclassified (1 source) Sleep apnea, unspecified; Translations: [SLEEP APNEA UNSPECIFIED] Onset: 2 Chronic Residual codes; unclassified (1 source) Obstructive sleep apnea (adult)(pediatric); Translations: [Obstructive sleep apnea (adult) (pediatric)] Onset: 3 Chronic Past or Other Problems Problem Classification Problem Date Documented Da te Episodic/Chronic Abdominal pain (3 sources) Unspecified abdominal pain; Translations: [UNSPECIFIED ABDOMINAL PAIN] Onset: 05-10-2022 Episodic Calculus of urinary tract (20 sources) Kidney stone; Translations: [Calculus of kidney] Onset: 05-31-2023 05-31-2023 Episodic Deficiency and other anemia (1 source) Iron deficiency anemia, unspecified Onset: 10-03-2021 Resolved: 10-03-2021 Episodic Deficiency and other anemia (20 sources) Microcytic anemia; Translations: [Iron deficiency anemia, unspecified] Onset: 05-31-2023 05-31-2023 Episodic Diabetes mellitus without complication (20 sources) Type 2 diabetes mellitus without complications; Translations: [Type 2 diabetes mellitus controlled by diet] Onset: 10-04-2022 Resolved: 12-03-2024 10-06-2024 Chronic E Codes: Cut/pierceb (1 source) Contact with other sharp object(s), not elsewhere classified, initial encounter; Translations: [[facility] OTH SHRP OB NOT ELSW CLASS INI] Onset: 09-19-2022 Episodic E Codes: Fall (1 source) Unspecified fall, initial encounter; Translations: [UNSPECIFIED FALL INITIAL ENCOUNTER] Onset: 05-13-2022 Episodic E Codes: Natural/environment (1 source) Other and unspecified overexertion or strenuous movements or postures, initial encounter; Translations: [OTH AND UNS OVREXRT/STRN MVMT/POS INT] Onset: 10-04-2022 Episodic Hemorrhoids (20 sources) Internal hemorrhoids; Translations: [Other hemorrhoids] Onset: 05-31-2023 05-31-2023 Episodic Open wounds of extremities (4 sources) Laceration without foreign body of left thumb without damage to nail, initial encounter; Translations: [LAC NO FB LT THUMB NO DMG NAIL INIT] Onset: 09-17-2022 Episodic Other aftercare (1 source) 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; Translations: [SHELTER CURRENT USE OF ASPIRIN] Onset: 10-04-2022 Episodic Other aftercare (1 source) 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; Translations: [OTH SHELTER CURRENT DRUG THERAPY] Onset: 10-04-2022 Episodic Other aftercare (1 source) assisted (current) use of oral hypoglycemic drugs; Translations: [CAPITAL PROJECT ENGINEER USE ORAL HYPOGLYCEMIC DX] Onset: 10-04-2022 Episodic Other connective tissue disease (3 sources) Pain in left thigh; Translations: [PAIN IN LEFT THIGH] Onset: 05-26-2022 Episodic Other diseases of kidney and ureters (20 sources) Acquired renal cystic disease; Translations: [Cyst of kidney, acquired] Onset: 05-31-2023 05-31-2023 Episodic Other lower respiratory disease (20 sources) Chronic cough; Translations: [Chronic cough] Onset: 10-07-2023 10-07-2023 Episodic Other non-traumatic joint disorders (4 sources) Pain in left hip; Translations: [PAIN IN LEFT HIP] Onset: 05-28-2022 Episodic April-; endo-; and myocarditis; cardiomyopathy (except that caused by tuberculosis or sexually transmitted disease) (20 sources) Disorder of pericardium; Translations: [Disease of pericardium, unspecified] Onset: 05-31-2023 05-31-2023 Episodic Residual codes; unclassified (20 sources) Obstructive sleep apnea syndrome; Translations: [Obstructive sleep apnea (adult) (pediatric)] Onset: 12-03-2024 Resolved: 12-03-2024 10-06-2024 Chronic Residual codes; unclassified (1 source) Edema, unspecified; Translations: [EDEMA UNSPECIFIED] Onset: 05-28-2022 Episodic Residual codes; unclassified (20 sources) Edema; Translations: [Edema, unspecified] Onset: 05-31-2023 05-31-2023 Episodic Residual codes; unclassified (20 sources) Insomnia; Translations: [Insomnia, unspecified] Onset: 05-31-2023 05-31-2023 Episodic Screening and history of mental health and substance abuse codes (1 source) Personal history of nicotine dependence; Translations: [PERSONAL HISTORY OF NICOTINE DEPEND] Onset: 10-04-2022 Episodic Spondylosis; intervertebral disc disorders; other back problems (20 sources) Chronic sciatica; Translations: [Sciatica, left side] Onset: 06-10-2024 06-10-2024 Episodic Sprains and strains (1 source) Strain of muscle, fascia and tendon of left hip, initial encounter; Translations: [STRAIN MUSC FASC TENDON LT HIP INIT] Onset: 10-04-2022 Episodic Superficial injury; contusion (1 source) Contusion of abdominal wall, initial encounter; Translations: [CONTUSION ABDOMINAL WALL INITIAL] Onset: 05-13-2022 Episodic Results Test Name Value Interpretation Reference Range Facility CBC (INCLUDES DIFF/PLT)on Basophils (Bld) [#/Vol] 0.022 10*3/uL Normal 0-200 [facility] Comment on above: Performed By: #### 5 928, 8024 #### [facility] [address], [address] [place] [phone] Graphic Technician: Matthew Lacy MD Basophils/100 WBC (Bld) 0.5 % Normal [facility] Comment on above: Performed By: #### 5 161, 3239 #### [facility] [address], [address] [place] [address] Graphic Technician: Matthew Lacy MD Eosinophils (Bld) [#/Vol] 0.031 10*3/uL Normal 15-500 [facility] Comment on above: Performed By: #### 5 616, 6099 #### [facility] [place] [address] Graphic Technician: Matthew Lacy MD Eosinophils/100 WBC (Bld) 0.7 % Normal [facility] Comment on above: Performed By: #### 5 616, 6399 #### [facility] [place] [address] Graphic Technician: Matthew Lacy MD Erythrocyte distribution width (RBC) [Ratio] 16.4 % High 11.0-15.0 [facility] Comment on above: Performed By: #### 5 616, 2499 #### [facility] [place] [address] Graphic Technician: Matthew Lacy MD Hematocrit (Bld) [Volume fraction] 31.1 % Low 35.0-45.0 [facility] Comment on above: Performed By: #### 5 616, 4099 #### [facility] [place] [address] Graphic Technician: Matthew Lacy MD Hemoglobin (Bld) [Mass/Vol] 9.4 g/dL Low 11.7-15.5 [facility] Comment on above: Performed By: #### 5 616, 7286 #### [facility] [place] [address] Graphic Technician: Matthew Lacy MD Lymphocytes (Bld) [#/Vol] 1.302 10*3/uL Normal 850-3900 [facility] Comment on above: Performed By: #### 5 616, 6999 #### [facility] [place] [address] Graphic Technician: Matthew Lacy MD Lymphocytes/100 WBC (Bld) 29.6 % Normal [facility] Comment on above: Performed By: #### 5 616, 6399 #### [facility] [place] [address] Graphic Technician: Matthew Lacy MD MCH (RBC) [Entitic mass] 27.2 pg Normal 27.0-33.0 [facility] Comment on above: Performed By: #### 5 386, 0980 #### [facility] [place] [address] Graphic Technician: Matthew Lacy MD MCHC (RBC) [Mass/Vol] 30.2 g/dL Low 32.0-36.0 [facility] Comment on above: Result Comment: For adults, a slight decrease in the calculated MCHC value (in the range of 30 to 32 g/dL) is most likely not clinically significant; however, it should be interpreted with caution in correlation with other red cell parameters and the patient's clinical condition. Performed By: #### 5 38, 4699 #### [facility] [place] [address] Graphic Technician: Matthew Lacy MD MCV (RBC) [Entitic vol] 90.1 fL Normal 80.0-100.0 [facility] Comment on above: Performed By: #### 5 59, 3799 #### [facility] [place] [address] Graphic Technician: Matthew Lacy MD Monocytes (Bld) [#/Vol] 0.449 10*3/uL Normal 200-950 [facility] Comment on above: Performed By: #### 5 616, 6899 #### [facility] [place] [address] Graphic Technician: Matthew Lacy MD Monocytes/100 WBC (Bld) 10.2 % Normal [facility] Comment on above: Performed By: #### 5 846, 6899 #### [facility] [place] [address] Graphic Technician: Matthew Lacy MD Neutrophils (Bld) [#/Vol] 2.596 10*3/uL Normal 8419-9211 [facility] Comment on above: Performed By: #### 5 616, 6399 #### [facility] [place] [address] Graphic Technician: Matthew Lacy MD Neutrophils/100 WBC (Bld) 59 % Normal [facility] Comment on above: Performed By: #### 5 616, 6399 #### [facility] [place] [address] Graphic Technician: Matthew Lacy MD Platelet mean volume (Bld) [Entitic vol] 12.3 fL Normal 7.5-12.5 [facility] Comment on above: Performed By: #### 5 616, 6399 #### [facility] [place] [address] Graphic Technician: Matthew Lacy MD Platelets (Bld) [#/Vol] 148 10*3/uL Normal 140-400 [facility] Comment on above: Performed By: #### 5 616, 6399 #### [facility] of [address], [address] [place] [address] Graphic Technician: Matthew Lacy MD RBC (Bld) [#/Vol] 3.45 10*6/uL Low 3.80-5.10 [facility] Comment on above: Performed By: #### 5 616, 6399 #### [facility] [place] [address] Graphic Technician: Matthew Lacy MD WBC (Bld) [#/Vol] 4.4 10*3/uL Normal 3.8-10.8 [facility] Comment on above: Performed By: #### 5 616, 6399 #### [facility] [place] [address] Graphic Technician: Matthew Lacy MD IRON, TIBC AND FERRITIN PANE Jeffrey 09-11-2025 % SATURATION 16 % (calc) Normal 16-45 [facility] Comment on above: Performed By: #### 5 616, 6399 #### [facility] of [address], [address] [place] [address] Graphic Technician: Matthew Lacy MD Ferritin [Mass/Vol] 9 ng/mL Low 16-288 [facility] Comment on above: Performed By: #### 5 616, 6399 #### [facility] of [address], [address] [place] [address] Graphic Technician: Matthew Lacy MD IRON BINDING CAPACITY 308 mcg/dL (calc) Normal 250-450 [facility] Comment on above: Performed By: #### 5 616, 6399 #### [facility] of [address], [address] [place] [address] Graphic Technician: Matthew Lacy MD IRON, TOTAL 49 mcg/dL Normal 45-160 [facility] Comment on above: Performed By: #### 5 616, 6399 #### [facility] [address], [address] [place] [address] Graphic Technician: Matthew Lacy MD Laboratory - Hematology and Cell countson 09-10-2025 HbA1c (Bld) [Mass fraction] 5.5 % [facility] No Panel Informationon 09-10 [facility] CBC (INCLUDES DIFF/PLT)on Basophils (Bld) [#/Vol] 0.02 10*3/uL Normal 0-200 [facility] Comment on above: Performed By: #### 6 399 #### [facility] [address] [place] [phone] Graphic Technician: Renetta Langley Basophils/100 WBC (Bld) 0.5 % Normal [facility] Comment on above: Performed By: #### 6 399 #### [facility] [address] [place] [phone] Graphic Technician: Renetta aLngley Eosinophils (Bld) [#/Vol] 0.052 10*3/uL Normal 15-500 [facility] Comment on above: Performed By: #### 6 399 #### [facility] [address] [place] [phone] Graphic Technician: Renetta Langley Eosinophils/100 WBC (Bld) 1.3 % Normal [facility] Comment on above: Performed By: #### 6 399 #### [facility] [address] [place], [place] [id number] Graphic Technician: Renetta Langley Erythrocyte distribution width (RBC) [Ratio] 18.7 % High 11.0-15.0 [facility] Comment on above: Performed By: #### 6 399 #### [facility] [address] [place], [place] [phone] Graphic Technician: Renetta Langley Hematocrit (Bld) [Volume fraction] 28.4 % Low 35.0-45.0 [facility] Comment on above: Performed By: #### 6 399 #### [facility] [address] Graphic Technician: Renetta Langley Hemoglobin (Bld) [Mass/Vol] 8.6 g/dL Low 11.7-15.5 [facility] Comment on above: Performed By: #### 6 399 #### [facility] [address] [place], [place] [phone] Graphic Technician: Renetta Langley Lymphocytes (Bld) [#/Vol] 1.16 10*3/uL Normal [facility]-3900 [facility] Comment on above: Performed By: #### 6 399 #### [facility] Graphic Technician: Renetta Langley Lymphocytes/100 WBC (Bld) 29.0 % Normal [facility] Comment on above: Performed By: #### 6 399 #### [facility] [address] [place], [place] [id number] Graphic Technician: Renetta Langley MCH (RBC) [Entitic mass] 24.4 pg Low 27.0-33.0 [facility] Comment on above: Performed By: #### 6 399 #### [facility] Graphic Technician: Renetta Langley MCHC (RBC) [Mass/Vol] 30.3 g/dL Low 32.0-36.0 [facility] Comment on above: Result Comment: For adults, a slight decrease in the calculated MCHC value (in the range of 30 to 32 g/dL) is most likely not clinically significant; however, it should be interpreted with caution in correlation with other red cell parameters and the patient's clinical condition. Performed By: #### 6 399 #### [facility] [address] Graphic Technician: Renetta Langley MCV (RBC) [Entitic vol] 80.5 fL Normal 80.0-100.0 [facility] Comment on above: Performed By: #### 6 399 #### [facility] [address] Graphic Technician: Renetta Langley Monocytes (Bld) [#/Vol] 0.42 10*3/uL Normal 200-950 [facility] Comment on above: Performed By: #### 6 399 #### [facility] [address] Graphic Technician: Renetta Langley Monocytes/100 WBC (Bld) 10.5 % Normal [facility] Comment on above: Performed By: #### 6 399 #### [facility] [address] Graphic Technician: Renetta Langley Neutrophils (Bld) [#/Vol] 2.348 10*3/uL Normal 3316-5276 [facility] Comment on above: Performed By: #### 6 399 #### [facility] [address] [place] [address] Graphic Technician: Renetta Langley Neutrophils/100 WBC (Bld) 58.7 % Normal [facility] Comment on above: Performed By: #### 6 399 #### [facility] [address] Graphic Technician: Renetta Langley Platelet mean volume (Bld) [Entitic vol] 11.7 fL Normal 7.5-12.5 [facility] Comment on above: Performed By: #### 6 399 #### [facility] [address] [place], [place] [phone] Graphic Technician: Renetta Langley Platelets (Bld) [#/Vol] 169 10*3/uL Normal 140-400 [facility] Comment on above: Performed By: #### 6 399 #### [facility] [address] [place], [place] [phone] Graphic Technician: Renetta Langley RBC (Bld) [#/Vol] 3.53 10*6/uL Low 3.80-5.10 [facility] Comment on above: Performed By: #### 6 399 #### [facility] [address] [place] [phone] Graphic Technician: Renetta Langley WBC (Bld) [#/Vol] 4.0 10*3/uL Normal 3.8-10.8 [facility] Comment on above: Performed By: #### 6 399 #### [facility] [address] [place], [place] [phone] Graphic Technician: Renetta Langley ALBUMIN, RANDOM URINE W/CREA TININEon 04-13-2025 ALBUMIN, URINE 4.0 mg/dL Normal See Note: [facility] Comment on above: Result Comment: Refsarah rentelly Range: Reference Range Not established Performed By: #### 1 0231, 7600, 6399, 6517 #### [facility] [address], [address] [place] [address] Graphic Technician: Matthew Lacy MD ALBUMIN/CREATININE RATIO, RANDOM URINE 30 mg/g creat High <30 [facility] Comment on above: Result Comment: The ADA defines abnormalities in albumin excretion as follows: Albuminuria Category Result (mg/g creatinine) Normal to Mildly increased <30 Moderately increased 30-299 Severely increased > OR = 300 The ADA recommends that at least two of three specimens collected within a 3-6 month period be abnormal before considering a patient to be within a diagnostic category. Performed By: #### 1 0231, 7600, 6399, 6517 #### [facility] [address] [facility], [address] [place] [phone] Graphic Technician: Matthew Lacy MD Creatinine (U) [Mass/Vol] 132 mg/dL Normal 20-275 [facility] Comment on above: Performed By: #### 1 0231, 7600, 63, 6517 #### [facility] [address], [address] [place] [address] Graphic Technician: Matthew Lacy MD CBC (INCLUDES DIFF/PLT)on Basophils (Bld) [#/Vol] 0.02 10*3/uL Normal 0-200 [facility] Comment on above: Performed By: #### 1 0231, 7600, 63, 6517 #### [facility] [place] [address] Graphic Technician: Matthew Lacy MD Basophils/100 WBC (Bld) 0.4 % Normal [facility] Comment on above: Performed By: #### 1 0231, 7599, 63, 6517 #### [facility] [address], [address] [place] [address] Graphic Technician: Matthew Lacy MD Eosinophils (Bld) [#/Vol] 0.05 10*3/uL Normal 15-500 [facility] Comment on above: Performed By: #### 1 0231, 7600, 63, 6517 #### [facility] [place] [address] Graphic Technician: Matthew Lacy MD Eosinophils/100 WBC (Bld) 1.0 % Normal [facility] Comment on above: Performed By: #### 1 0231, 7600, 63, 6517 #### [facility] [address], [address] [place] [address] Graphic Technician: Matthew Lacy MD Erythrocyte distribution width (RBC) [Ratio] 16.0 % High 11.0-15.0 [facility] Comment on above: Performed By: #### 1 0231, 7600, 6399, 6517 #### [facility] [place] [address] Graphic Technician: Matthew Lacy MD Hematocrit (Bld) [Volume fraction] 28.6 % Low 35.0-45.0 [facility] Comment on above: Performed By: #### 1 023, 7599, 6398, 6517 #### [facility] [address], [address] [place] [address] Graphic Technician: Matthew Lacy MD Hemoglobin (Bld) [Mass/Vol] 8.2 g/dL Low 11.7-15.5 [facility] Comment on above: Performed By: #### 1 023, 7599, 6398, 6517 #### [facility] [place] [address] Graphic Technician: Matthew Lacy MD Lymphocytes (Bld) [#/Vol] 1.585 10*3/uL Normal 850-3900 [facility] Comment on above: Performed By: #### 1 230, 7599, 6398, 6517 #### [facility] [place] [address] Graphic Technician: Matthew Lacy MD Lymphocytes/100 WBC (Bld) 31.7 % Normal [facility] Comment on above: Performed By: #### 1 023, 7599, 6398, 6517 #### [facility] [place] [address] Graphic Technician: Matthew Lacy MD MCH (RBC) [Entitic mass] 23.8 pg Low 27.0-33.0 [facility] Comment on above: Performed By: #### 1 023, 7599, 6398, 6517 #### [facility] [place] [address] Graphic Technician: Matthew Lacy MD MCHC (RBC) [Mass/Vol] 28.7 g/dL Low 32.0-36.0 [facility] Comment on above: Result Comment: For adults, a slight decrease in the calculated MCHC value (in the range of 30 to 32 g/dL) is most likely not clinically significant; however, it should be interpreted with caution in correlation with other red cell parameters and the patient's clinical condition. Performed By: #### 1 0231, 7600, 63, 6517 #### [facility] [place] [address] Graphic Technician: Matthew Lacy MD MCV (RBC) [Entitic vol] 83.1 fL Normal 80.0-100.0 [facility] Comment on above: Performed By: #### 1 0231, 7600, 63, 6517 #### [facility] [place] [address] Graphic Technician: Matthew Lacy MD Monocytes (Bld) [#/Vol] 0.51 10*3/uL Normal 200-950 [facility] Comment on above: Performed By: #### 1 0231, 7600, 63, 6517 #### [facility] [place] [address] Graphic Technician: Matthew Lacy MD Monocytes/100 WBC (Bld) 10.2 % Normal [facility] Comment on above: Performed By: #### 1 0231, 0, 63, 6517 #### [facility] [place] [address] Graphic Technician: Matthew Lacy MD Neutrophils (Bld) [#/Vol] 2.835 10*3/uL Normal 3810-4074 [facility] Comment on above: Performed By: #### 1 0231, 7600, 63, 6517 #### [facility] [place] [address] Graphic Technician: Matthew Lacy MD Neutrophils/100 WBC (Bld) 56.7 % Normal [facility] Comment on above: Performed By: #### 1 0231, 7600, 63, 6517 #### [facility] [place] [address] Graphic Technician: Matthew Lacy MD Platelet mean volume (Bld) [Entitic vol] 11.5 fL Normal 7.5-12.5 [facility] Comment on above: Performed By: #### 1 0231, 7600, 6399, 6517 #### [facility] [address], [address] [place] [address] Graphic Technician: Matthew Lacy MD Platelets (Bld) [#/Vol] 141 10*3/uL Normal 140-400 [facility] Comment on above: Performed By: #### 1 0231, 7600, 6399, 6517 #### [facility] [address], [address] [place] [address] Graphic Technician: Matthew Lacy MD RBC (Bld) [#/Vol] 3.44 10*6/uL Low 3.80-5.10 [facility] Comment on above: Performed By: #### 1 0231, 7600, 6399, 6517 #### [facility] [address], [address] [place] [address] Graphic Technician: Matthew Lacy MD WBC (Bld) [#/Vol] 5.0 10*3/uL Normal 3.8-10.8 [facility] Comment on above: Performed By: #### 1 0231, 7600, 6399, 6517 #### [facility] [place] [address] Graphic Technician: Matthew Lacy MD [facility] 04-13-2025 Albumin [Mass/Vol] 3.8 g/dL Normal 3.6-5.1 [facility] Comment on above: Performed By: #### 1 0231, 7600, 6399, 6517 #### [facility] [place] [address] Graphic Technician: Matthew Lacy MD Albumin/Globulin [Mass ratio] 1.4 {ratio} Normal 1.0-2.5 [facility] Comment on above: Performed By: #### 1 0231, 7600, 6399, 6517 #### [facility] [place] [address] Graphic Technician: Matthew Lacy MD ALP [Catalytic activity/Vol] 57 U/L Normal 37-153 [facility] Comment on above: Performed By: #### 1 0231, 0, 63, 6517 #### [facility] [address], [address] [place] [address] Graphic Technician: Matthew Lacy MD ALT [Catalytic activity/Vol] 20 U/L Normal 6-29 [facility] Comment on above: Performed By: #### 1 0231, 0, 6398, 6517 #### [facility] [address], [address] [place] [address] Graphic Technician: Matthew Lacy MD AST [Catalytic activity/Vol] 38 U/L High 10-35 [facility] Comment on above: Performed By: #### 1 0231, 0, 63, 6517 #### [facility] [address], [address] [place] [address] Graphic Technician: Matthew Lacy MD Bilirubin [Mass/Vol] 0.6 mg/dL Normal 0.2-1.2 [facility] Comment on above: Performed By: #### 1 023, 7599, 63, 6517 #### [facility] [place] [address] Graphic Technician: Matthew Lacy MD BUN/CREATININE RATIO SEE NOTE: Normal 6-22 [facility] Comment on above: Result Comment: Not Reported: BUN and Creatinine are within reference range. Performed By: #### 1 023, 7599, 63, 6517 #### [facility] [address], [address] [place] [address] Graphic Technician: Matthew Lacy MD Calcium [Mass/Vol] 9.2 mg/dL Normal 8.6-10.4 [facility] Comment on above: Performed By: #### 1 0231, 7600, 63, 6517 #### [facility] [address], [address] [place] [address] Graphic Technician: Matthew Lacy MD Chloride [Moles/Vol] 104 mmol/L Normal 98-110 [facility] Comment on above: Performed By: #### 1 0231, 0, 63, 6517 #### [facility] [place] [address] Graphic Technician: Matthew Lacy MD CO2 [Moles/Vol] 24 mmol/L Normal 20-32 [facility] Comment on above: Performed By: #### 1 0231, 0, 63, 6517 #### [facility] [place] [address] Graphic Technician: Matthew Lacy MD Creatinine [Mass/Vol] 0.64 mg/dL Normal 0.60-1.00 [facility] Comment on above: Performed By: #### 1 0231, 7600, 63, 6517 #### [facility] [place] [address] Graphic Technician: Matthew Lacy MD GFR/1.73 sq M.predicted among non-blacks MDRD (S/P/Bld) [Vol rate/Area] 94 mL/min/{1.73_m2} Normal > OR = 60 [facility] Comment on above: Performed By: #### 1 023, 0, 63, 6517 #### [facility] [place] [address] Graphic Technician: Matthew Lacy MD Globulin (S) [Mass/Vol] 2.8 g/dL Normal 1.9-3.7 [facility] Comment on above: Performed By: #### 1 0231, 7600, 63, 6517 #### [facility] [place] [address] Graphic Technician: Matthew Lacy MD Glucose [Mass/Vol] 102 mg/dL Normal 65-139 [facility] Comment on above: Result Comment: Non-fasting reference interval For someone without known diabetes, a glucose value between 100 and 125 mg/dL is consistent with prediabetes and should be confirmed with a follow-up test. Performed By: #### 1 0231, 7600, 6399, 6517 #### [facility] [address], [address] [place] [address] Graphic Technician: Matthew Lacy MD Potassium [Moles/Vol] 4.1 mmol/L Normal 3.5-5.3 [facility] Comment on above: Performed By: #### 1 0231, 7600, 6399, 6517 #### [facility] [address], [address] [place] [address] Graphic Technician: Matthew Lacy MD Protein [Mass/Vol] 6.6 g/dL Normal 6.1-8.1 [facility] Comment on above: Performed By: #### 1 0231, 7600, 6399, 6517 #### [facility] of [address], [address] [place] [address] Graphic Technician: Matthew Lacy MD Sodium [Moles/Vol] 140 mmol/L Normal 135-146 [facility] Comment on above: Performed By: #### 1 0231, 7600, 6399, 6517 #### [facility] of [address], [address] [place] [address] Graphic Technician: Matthew Lacy MD Urea nitrogen [Mass/Vol] 10 mg/dL Normal 7-25 [facility] Comment on above: Performed By: #### 1 0231, 7600, 6399, 6517 #### [facility] of [place] [address] Graphic Technician: Matthew Lacy MD LIPID PANEL, [facility] 04-01 Cholesterol [Mass/Vol] 82 mg/dL Normal <200 [facility] Comment on above: Order Comment: FASTI NG:NO FASTING: NO Performed By: #### 1 0231, 7600, 6399, 6517 #### [facility] of [address], [address] [place] [address] Graphic Technician: Matthew Lacy MD Cholesterol in HDL [Mass/Vol] 45 mg/dL Low > OR = 50 [facility] Comment on above: Order Comment: FASTI NG:NO FASTING: NO Performed By: #### 1 0231, 7600, 6399, 6517 #### [facility] [address], [address] [place] [address] Graphic Technician: Matthew Lacy MD Cholesterol in LDL [Mass/Vol] 22 mg/dL Normal [facility] Comment on above: Order Comment: FASTI NG:NO FASTING: NO Result Comment: Refe rence range: <100 Desirable range <100 mg/dL for primary prevention; <70 mg/dL for patients with CHD or diabetic patients with > or = 2 CHD risk factors. LDL-C is now calculated using the Annabel calculation, which is a validated novel method providing better accuracy than the Friedewald equation in the estimation of LDL-C. Shankar SS et al. AL. 2013;310(19): 6225-2612 (http://education.[employer]/faq/OBR137) Performed By: #### 1 0231, 7600, 6399, 6517 #### [facility] [address], [address] [place] [address] Graphic Technician: Matthew Lacy MD Cholesterol.total/Ch olesterol in HDL [Mass ratio] 1.8 {ratio} Normal <5.0 [facility] Comment on above: Order Comment: FASTI NG:NO FASTING: NO Performed By: #### 1 0231, 7600, 6399, 6517 #### [facility] [address], [address] [place] [address] Graphic Technician: Matthew Lacy MD NON HDL CHOLESTEROL 37 mg/dL (calc) Normal <130 [facility] Comment on above: Order Comment: FASTI NG:NO FASTING: NO Result Comment: For patients with diabetes plus 1 major ASCVD risk factor, treating to a non-HDL-C goal of <100 mg/dL (LDL-C of <70 mg/dL) is considered a therapeutic option. Performed By: #### 1 0231, 7600, 6399, 6517 #### [facility] [address], [address] [place] [address] Graphic Technician: Matthew Lacy MD Triglyceride [Mass/Vol] 71 mg/dL Normal <150 [facility] Comment on above: Order Comment: FASTI NG:NO FASTING: NO Performed By: #### 1 0231, 7600, 6399, 6517 #### [facility] [address] [facility], [address] [place] [address] Graphic Technician: Matthew Lacy MD TSH W/REFLEX TO FT4on 2024 TSH W/REFLEX TO FT4 1.81 mIU/L Normal 0.40-4.50 [facility] Comment on above: Performed By: #### 1 0231, 7600, 6399, 6517 #### [facility] [address] [facility], [address] [place] [address] Graphic Technician: Matthew Lacy MD CT CHEST WO IV CONTRASTon CT CHEST WO IV CONTRAST CT CHEST WO IV CONTRAST; HISTORY: Six month follow up abnormal chest CT COMPARISON: CT chest September 23, 2024 TECHNIQUE: Helical scanning was obtained of the chest and reviewed in soft tissue and lung algorithm. Coronal reformations were reconstructed. CONTRAST: None FINDINGS: LUNGS: Pleural thickening with adjacent fibro nodular parenchymal opacity in the right apex appears to be entirely stable. Left lung is clear. There is minimal linear scarring or atelectasis in both lung bases posteriorly. AIRWAYS: Major airways are clear. PLEURA: No pneumothorax or pleural effusion. MEDIASTINUM: No pathologically enlarged mediastinal or hilar lymph nodes. GREAT VESSELS: Visualized portions of the aorta and main pulmonary artery are within normal limits for age. HEART: Heart size is within normal limits for age. CORONARY ARTERY Calcifications: AXILLA: No pathologically enlarged axillary lymph nodes. OSSEOUS STRUCTURES: Bones are demineralized. Bridging osteophytes of the thoracic spine are noted along multiple levels. There is a dextroconvex curvature of the midthoracic spine. UPPER ABDOMEN: Postop changes of the stomach are noted and granulomas are present in the spleen. IMPRESSION: Stable pleural thickening and fibro nodular parenchymal appearance of the adjacent lung parenchyma. No new findings. Dictated on: 03/16/2025 3:31 PM This report has been electronically signed and approved by the interpreting Radiologist. Normal Not Available HbA1c (Bld) [Mass fraction]o n 01-11-2025 Interpretation and review of laboratory results Normal [facility] - Hematology and Cell countson 01-11-2025 HbA1c (Bld) [Mass fraction] 5.4 % [facility] CT CHEST W IV CONTRASTon CT CHEST W IV CONTRAST EXAM: CT Chest with Contrast: REASON FOR EXAM: Cough. COMPARISON: None. TECHNIQUE: Multiplanar images of the chest obtained. CONTRAST: 100 mL of Isovue-300 without reported complication. FINDINGS: The lower neck is without abnormality. Scattered subcentimeter middle mediastinal lymph nodes. The heart is not enlarged. No pericardial thickening. Multivessel coronary artery calcifications. Images of the upper abdomen demonstrate prominent spleen and splenic calcifications. Postoperative changes of the stomach incompletely visualized. Nodularity of the liver without complete visualization. Atherosclerosis of the aorta. Regional soft tissues without abnormality. The lungs are notable for fibrolinear changes of the right upper lung extending to the pleural margin. Mild reticular markings in the lung bases are present. Central calcification suggests benignity. No nodule, mass, consolidation. The visualized airways are patent The osseous structures are without acute abnormality. Chronic proximal right-sided rib fractures and diffuse spondylosis of the thoracic spine noted. IMPRESSION: 1. Right upper lobe subsegmental atelectasis versus lung scarring. Calcification suggests granulomatous change. Follow-up to document resolution or stability recommended with repeat chest CT in 6 months. 2. Scattered nonspecific subcentimeter middle mediastinal lymph nodes. 3. Coronary artery disease and atherosclerosis of the aorta. 4. Splenic granulomata. 5. Findings suspicious for hepatic cirrhosis. 6. Postoperative changes of the stomach incompletely visualized. All CT scans at this institution are performed using dose optimization techniques as appropriate for the performed exam including the following: Automated exposure control Adjustment of the mA and/or kV according to patient size Use of iterative reconstruction technique This report is generated using voice recognition reporting ([employer]). On occasion, [employer] erroneously drops words from the report or replaces the spoken word with a similar sounding word. Please call with any questions/concerns regarding the report. Dictated and transcribed 09/24/2024/rajendra This report has been electronically signed and approved by the interpreting radiologist. Electronically Signed Phil Anderson II, M.D. 2024-09-25 06:39:34 Normal Not Available Comment on above: Order Comment: COPD, CHRONIC COUGH X 5 MOS, HX SMOKING COPD, CHRONIC COUGH X 5 MOS, HX SMOKING Laboratory - Hematology and Cell countson 09-10-2024 HbA1c (Bld) [Mass fraction] 6.0 % [facility] No Panel Informationon 09-10 [facility] C REACTIVE PROTEINon 024 CRP [Mass/Vol] 5.5 mg/L Normal 0-10 [facility] Comment on above: Performed By: #### E SR, CREACT #### Testing performed at [address] [address] CRP [Mass/Vol] 5.5 mg/L 0 - 10 MG/L [facility] ESRon 12-12-2023 ESR (Bld) [Velocity] 29 mm/h Normal 0-30 [facility] Comment on above: Performed By: #### E SR, CREACT #### Testing performed at [address] [address] SEDIMENTATION RATE, AUTOMATE Don 12-12-2023 ESR (Bld) [Velocity] 29 mm/h [facility] CT Maxillofacial w/o Contras ton [...] as low as reasonably achievable. Ordering Provider: Timmis, Yuli FINAL REPORT Dictated: 12/05/2023 11:21 am Signer Oren ALBERTS Signed (Electronic Signature): 12/05/2023 11:21 am Signed by: Oren Abdul MD Transcribed by: YAZ Technologist: NATALY [facility] Consent for Treatmenton Consent for Treatment [id number] 0TIFF [facility] Physician Orderon 11-14-2023 Physician Order [id number] 0TIFF [facility] Physician Order [id number]#[id number] 0TIFF [facility] MG MAMM SCREEN 3D NGOC CADon 02-28-2023 MG MAMM SCREEN 3D NGOC CAD Patient: SIRIA PETTY Exam Date: 02/28/2023 : 1950 Gender:F Ordering : DR TYSHAWN HICKMAN M.D. Admission #: [id number] Family : Order #: [id number] CLICK HERE TO VIEW EXAM RADIOLOGY REPORT [...] Treatments None Family Cancers None LOCATION: [facility] BREAST COMPOSITION: Almost entirely fatty. 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 The patient was prepped with alcohol. [facility] Radiology Study observation (narrative) [facility] MG MAMM DX 3D RT CADon 06-07 MG MAMM DX 3D RT CAD Patient: SIRIA PETTY Exam Date: 06/07/2022 : 1950 Gender:F Ordering : DR TYSHAWN HICKMAN M.D. Admission #: [id number] Family : Order #: [id number] CLICK HERE TO VIEW EXAM RADIOLOGY REPORT [...] Treatments None Family Cancers None LOCATION: [facility] BREAST COMPOSITION: Almost entirely fatty. FINDINGS: [...] M.D. on 06/07/2022 at 15:[address] [facility] CBC AUTO DIFFon 05-26-2022 BASO # 0.0 103/ul Normal 0.0-0.1 [facility] Comment on above: Performed By: #### C BC #### [facility] [address] [place] [address] [address] Francesca Ortiz Basophils/100 WBC (Bld) 0.5 % Normal 0.2-2.0 [facility] Comment on above: Performed By: #### C BC #### [facility] [address] [place] [address] [address] Francesca Ortiz EO # 0.1 103/ul Normal 0.0-0.7 [facility] Comment on above: Performed By: #### C BC #### [facility] [address] [place] [address] [address] Francesca Ortiz Eosinophils/100 WBC (Bld) 1.9 % Normal 0.9-7.0 [facility] Comment on above: Performed By: #### C BC #### [facility] [address] [place] [address] [address] Francesca Ortiz Erythrocyte distribution width (RBC) [Ratio] 13.5 % Normal 11.0-15.0 [facility] Comment on above: Performed By: #### C BC #### [facility] [address] [place] [address] Dr. Francesca Ortiz Hematocrit (Bld) [Volume fraction] 35.7 % Critically low 36.0-48.0 [facility] Comment on above: Performed By: #### C BC #### [facility] [address] [place] [address] Dr. Francesca Ortiz Hemoglobin (Bld) [Mass/Vol] 11.3 g/dL Critically low 12.0-16.0 [facility] Comment on above: Performed By: #### C BC #### [facility] [address] [place] [address] Dr. Francesca Ortiz IG # 0.01 10e3/ul Normal 0.00-0.03 [facility] Comment on above: Performed By: #### C BC #### [facility] [address] [place] [address] Dr. Francesca Ortiz IG % 0.2 % Normal 0.0-0.5 [facility] Comment on above: Performed By: #### C BC #### [facility] [address] [place] [address] Dr. Francesca Ortiz LYMPH # 1.7 103/ul Normal 1.2-3.8 [facility] Comment on above: Performed By: #### C BC #### [facility] [address] [place] [address] Dr. Francesca Ortiz Lymphocytes/100 WBC (Bld) 27.9 % Normal 20.5-60.0 [facility] Comment on above: Performed By: #### C BC #### [facility] [address] [place] [address] Dr. Francesca Ortiz MANUAL DIFF REQ NO Normal [facility] Comment on above: Performed By: #### C BC #### [facility] [address] [place] [address] Dr. Francesca Ortiz MCH (RBC) [Entitic mass] 29.9 pg Normal 26.7-34.0 [facility] Comment on above: Performed By: #### C BC #### [facility] [address] [place] [address] Dr. Francesca Ortiz MCHC (RBC) [Mass/Vol] 31.7 g/dL Normal 29.9-35.[address] [facility] Comment on above: Performed By: #### C BC #### [facility] [address] [place] [address] [address] Francesca Ortiz MCV (RBC) [Entitic vol] 94.4 fL Normal 81.0-99.[address] [facility] Comment on above: Performed By: #### C BC #### [facility] [address] [place] [address] [address] Francesca Ortiz MONO # 0.6 103/ul Normal 0.3-0.[address] [facility] Comment on above: Performed By: #### C BC #### [facility] [address] [place] [address] Dr. Francesca Ortiz Monocytes/100 WBC (Bld) 9.9 % Normal 1.7-12.[address] [facility] Comment on above: Performed By: #### C BC #### [facility] [address] [place] [address] Dr. Francesca Ortiz NEUT # 3.5 103/ul Normal 1.4-6.[address] [facility] Comment on above: Performed By: #### C BC #### [facility] [address] [place] [address] Dr. Francesca Ortiz Neutrophils/100 WBC (Bld) 59.6 % Normal 43.0-75.[address] [facility] Comment on above: Performed By: #### C BC #### [facility] [address] [place] [address] [address] Francesca Ortiz Platelet mean volume (Bld) [Entitic vol] 10.7 fL Normal 9.5-13.[address] [facility] Comment on above: Performed By: #### C BC #### [facility] [address] [place] [address] [address] Francesca Ortiz PLT 131 103/ul Critically low 150-450 [facility] Comment on above: Performed By: #### C BC #### [facility] [address] [place] [address] Dr. Francesca Ortiz RBC 3.78 106/ul Critically low 4.20-5.40 [facility] Comment on above: Performed By: #### C BC #### [facility] [address] [place] [address] Dr. Francesca Ortiz WBC 5.9 103/ul Normal 4.0-11.0 [facility] Comment on above: Performed By: #### C BC #### [facility] [address] [place] [address] Dr. Francesca Ortiz PROF 14(COMP METB)on 022 Albumin [Mass/Vol] 3.6 g/dL Normal 3.4-5.0 [facility] Comment on above: Performed By: #### C MP #### [facility] [address] [place] [address] Dr. Francesca Ortiz Albumin/Globulin [Mass ratio] 1.1 {ratio} Normal [facility] Comment on above: Performed By: #### C MP #### [facility] [address] [place] [address] Dr. Francesca Ortiz ALP [Catalytic activity/Vol] 93 U/L Normal 46-[address] [facility] Comment on above: Performed By: #### C MP #### [facility] [address] [place] [address] Dr. Francesca Ortiz ALT [Catalytic activity/Vol] 33 U/L Normal 14-59 [facility] Comment on above: Performed By: #### C MP #### [facility] [address] [place] [address] Dr. Francesca Ortiz Anion gap [Moles/Vol] 13.2 mmol/L Normal [facility] Comment on above: Performed By: #### C MP #### [facility] [address] [place] [address] Dr. Francesca Ortiz AST [Catalytic activity/Vol] 34 U/L Normal 15-37 [facility] Comment on above: Performed By: #### C MP #### [facility] [address] [place] [address] Dr. Francesca Ortiz Bilirubin [Mass/Vol] 0.5 mg/dL Normal 0.2-1.0 [facility] Comment on above: Performed By: #### C MP #### [facility] [address] [place] [address] [address] Francesca Ortiz Calcium [Mass/Vol] 9.0 mg/dL Normal 8.5-10.1 [facility] Comment on above: Performed By: #### C MP #### [facility] [address] [place] [address] [address] Francesca Ortiz Chloride [Moles/Vol] 104 mmol/L Normal 98-107 [facility] Comment on above: Performed By: #### C MP #### [facility] [address] [place] [address] Dr. Francesca Ortiz CO2 [Moles/Vol] 27.2 mmol/L Normal 21.0-32.0 [facility] Comment on above: Performed By: #### C MP #### [facility] [address] [place] [address] Dr. Francesca Ortiz Creatinine [Mass/Vol] 0.92 mg/dL Normal 0.55-1.02 [facility] Comment on above: Performed By: #### C MP #### [facility] [address] [place] [address] Dr. Francesca Ortiz EGFR-AF SINGAPOREAN >60 Normal >=60 [facility] Comment on above: Performed By: #### C MP #### [facility] [address] [place] [address] Dr. Francesca Ortiz EGFR-NON AF SINGAPOREAN =60 Normal >=60 [facility] Comment on above: Performed By: #### C MP #### [facility] [address] [place] [address] Dr. Francesca Ortiz Globulin (S) [Mass/Vol] 3.4 g/dL Normal [facility] Comment on above: Performed By: #### C MP #### [facility] [address] [place] [address] Dr. Francesca Ortiz Glucose [Mass/Vol] 113 mg/dL Critically high 74-106 [facility] Comment on above: Performed By: #### C MP #### [facility] [address] [place] [address] [address] Francesca Ortiz Potassium [Moles/Vol] 4.4 mmol/L Normal 3.5-5.[address] [facility] Comment on above: Performed By: #### C MP #### [facility] [address] [place] [address] [address] Francesca Ortiz Protein [Mass/Vol] 7.0 g/dL Normal 6.4-8.2 [facility] Comment on above: Performed By: #### C MP #### [facility] [address] [place] [address] [address] Francesca Ortiz Sodium [Moles/Vol] 140 mmol/L Normal 136-145 [facility] Comment on above: Performed By: #### C MP #### [facility] [address] [place] [address] [address] Francesca Ortiz Urea nitrogen [Mass/Vol] 17.0 mg/dL Normal 7.0-18.0 [facility] Comment on above: Performed By: #### C MP #### [facility] [address] [place] [address] [address] Francesca Ortiz Urea nitrogen/Creatinine [Mass ratio] 18.5 mg/mg Normal [facility] Comment on above: Performed By: #### C MP #### [facility] [address] [place] [address] [address] Francesca Ortiz XR HIP LT 2 [...] LUKE BLACKWOOD Date: 2022-05-26 15:[address] [facility] CBC AUTO DIFFon 05-10-2022 BASO # 0.0 103/ul Normal 0.0-0.1 [facility] Comment on above: Performed By: #### C BC #### [facility] [address] [place] [address] [address] Francesca Ortiz Basophils/100 WBC (Bld) 0.4 % Normal 0.2-2.[address] [facility] Comment on above: Performed By: #### C BC #### [facility] [address] [address] [address] Francesca Ortiz EO # 0.1 103/ul Normal 0.0-0.7 [facility] Comment on above: Performed By: #### C BC #### [facility] [address] [place] [address] Dr. Francesca Ortiz Eosinophils/100 WBC (Bld) 1.8 % Normal 0.9-7.0 [facility] Comment on above: Performed By: #### C BC #### [facility] [address] [place] [address] Dr. Francesca Ortiz Erythrocyte distribution width (RBC) [Ratio] 13.9 % Normal 11.0-15.0 [facility] Comment on above: Performed By: #### C BC #### [facility] [address] [place] [address] Dr. Francesca Ortiz Hematocrit (Bld) [Volume fraction] 36.8 % Normal 36.0-48.0 [facility] Comment on above: Performed By: #### C BC #### [facility] [address] [place] [address] Dr. Francesca Ortiz Hemoglobin (Bld) [Mass/Vol] 11.7 g/dL Critically low 12.0-16.0 [facility] Comment on above: Performed By: #### C BC #### [facility] [address] [place] [address] Dr. Francesca Ortiz IG # 0.01 10e3/ul Normal 0.00-0.03 [facility] Comment on above: Performed By: #### C BC #### [facility] [address] [place] [address] Dr. Francesca Ortiz IG % 0.2 % Normal 0.0-0.[address] [facility] Comment on above: Performed By: #### C BC #### [facility] [address] [place] [address] Dr. Francesca Ortiz LYMPH # 1.6 103/ul Normal 1.2-3.[address] [facility] Comment on above: Performed By: #### C BC #### [facility] [address] [place] [address] Dr. Francesca Ortiz Lymphocytes/100 WBC (Bld) 31.5 % Normal 20.5-60.[address] [facility] Comment on above: Performed By: #### C BC #### [facility] [address] [place] [address] Dr. Francesca Ortiz MANUAL DIFF REQ NO Normal [facility] Comment on above: Performed By: #### C BC #### [facility] [address] [place] [address] Dr. Francesca Ortiz MCH (RBC) [Entitic mass] 30.0 pg Normal 26.7-34.[address] [facility] Comment on above: Performed By: #### C BC #### [facility] [address] [place] [address] Dr. Francesca Ortiz MCHC (RBC) [Mass/Vol] 31.8 g/dL Normal 29.9-35.[address] [facility] Comment on above: Performed By: #### C BC #### [facility] [address] [place] [address] Dr. Francesca Ortiz MCV (RBC) [Entitic vol] 94.4 fL Normal 81.0-99.[address] [facility] Comment on above: Performed By: #### C BC #### [facility] [address] [place] [address] Dr. Francesca Ortiz MONO # 0.6 103/ul Normal 0.3-0.[address] [facility] Comment on above: Performed By: #### C BC #### [facility] [address] [place] [address] Dr. Francesca Ortiz Monocytes/100 WBC (Bld) 11.0 % Normal 1.7-12.0 [facility] Comment on above: Performed By: #### C BC #### [facility] [address] [place] [address] Dr. Francesca Ortiz NEUT # 2.8 103/ul Normal 1.4-6.5 [facility] Comment on above: Performed By: #### C BC #### [facility] [address] [place] [address] Dr. Francesca Ortiz Neutrophils/100 WBC (Bld) 55.1 % Normal 43.0-75.0 [facility] Comment on above: Performed By: #### C BC #### [facility] [address] [place] [address] Dr. Francesca Ortiz Platelet mean volume (Bld) [Entitic vol] 11.0 fL Normal 9.5-13.5 [facility] Comment on above: Performed By: #### C BC #### [facility] [address] [place] [address] Dr. Francesca Ortiz PLT 136 103/ul Critically low 150-450 [facility] Comment on above: Performed By: #### C BC #### [facility] [facility] [address] [place] [address] Dr. Francesca Ortiz RBC 3.90 106/ul Critically low 4.20-5.40 [facility] Comment on above: Performed By: #### C BC #### [facility] [address] [place] [address] Dr. Francesca Ortiz WBC 5.1 103/ul Normal 4.0-11.[address] [facility] Comment on above: Performed By: #### C BC #### [facility] [address] [place] [address] ABD/PELV W CONon [...] CHEN ZAMORANO Date: 2022-05-10 15:[address] [facility] PROF CHEM 8 (BAS METB)on Anion gap [Moles/Vol] 9.9 mmol/L Normal [facility] Comment on above: Performed By: #### B MP #### [facility] [address] [address] [address] Francesca Ortiz Calcium [Mass/Vol] 9.5 mg/dL Normal 8.5-10.1 [facility] Comment on above: Performed By: #### B MP #### [facility] [address] [place], [place] [address] Dr. Francesca Ortiz Chloride [Moles/Vol] 104 mmol/L Normal 98-107 [facility] Comment on above: Performed By: #### B MP #### [facility] [address] [address] [address] Francesca Ortiz CO2 [Moles/Vol] 27.2 mmol/L Normal 21.0-32.0 [facility] Comment on above: Performed By: #### B MP #### [facility] [address] [address] [address] Francesca Ortiz Creatinine [Mass/Vol] 0.88 mg/dL Normal 0.55-1.02 [facility] Comment on above: Performed By: #### B MP #### [facility] [address] [address] [address] Francesca Ortiz EGFR-AF SINGAPOREAN >60 Normal >=60 [facility] Comment on above: Performed By: #### B MP #### [facility] [address] [place] [address] Dr. Francesca Ortiz EGFR-NON AF SINGAPOREAN >60 Normal >=60 [facility] Comment on above: Performed By: #### B MP #### [facility] [address] [address] [address] Francesca Ortiz Glucose [Mass/Vol] 111 mg/dL Critically high 74-[address] [facility] Comment on above: Performed By: #### B MP #### [facility] [address] [place] [address] Dr. Francesca Ortiz Potassium [Moles/Vol] 4.1 mmol/L Normal 3.5-5.1 [facility] Comment on above: Performed By: #### B MP #### [facility] [address] [address] [address] Francesca Ortiz Sodium [Moles/Vol] 137 mmol/L Normal 136-145 [facility] Comment on above: Performed By: #### B MP #### [facility] [address] [place] [address] Dr. Francesca Ortiz Urea nitrogen [Mass/Vol] 17.0 mg/dL Normal 7.0-18.0 [facility] Comment on above: Performed By: #### B MP #### [facility] [address] [place] [address] Dr. Francesca Ortiz Urea nitrogen/Creatinine [Mass ratio] 19.3 mg/mg Normal [facility] Comment on above: Performed By: #### B #### [facility] [address] [place], [place] [address] Dr. Francesca Ortiz GLUCOSE (POC DEVICE)on 11-14 GLUCOSE, POINT OF CARE [address] [facility] Interpretation and review of laboratory results Abnormal [facility] Operator [id number] [facility] HEMOGLOBIN & HEMATOCRITon Hematocrit (Bld) [Volume fraction] 34.9 % Low 36.0 - 48.0 % [facility] Hemoglobin (Bld) [Mass/Vol] 11.2 g/dL Low [facility] Interpretation and review of laboratory results Abnormal [facility] NOVEL CORONAVIRUS LAB 1 - NA SOPHARYNGEALon 11-14-2021 NARRATIVE -1 This test was performed using isothermal GIO and has been approved as Emergency Use Authorization (EUA) for the qualitative detection [id number] nucleic acid. [facility] SARS-CoV-2 (COVID-19) RNA GIO+probe Ql (Unsp spec) Not detected NOT DETECTED [facility] Comment on above: Negative results do not [...] patient is critically ill or clinically deteriorating. [facility] PROTIME-INRon 11-14-2021 INR Coag (PPP) [Relative time] 1.15 {INR} [facility] Comment on above: 2.0-3.0 THERAPEUTIC RANGE 2.5-3.5 MECHANICAL VALVE RANGE Interpretation and review of laboratory results Abnormal [facility] PT Coag (PPP) [Time] 14.9 s [facility] TYPE AND SCREEN - POSSIBLE T RANSFUSIONon 11-14-2021 ABO and Rh group Nom (Bld ) Positive [facility] ARM BAND NUMBER [id number] [facility] Blood group antibody screen Ql Negative [facility] EXPIRATION DATE 11/17/2021,7292 [facility] XR PELVIS AP ONLYon 11-14-20 [...] or dislocations. IMPRESSION IMPRESSION: Routine postoperative changes. [facility] Radiology Study observation (narrative) [facility] XR PELVIS AP ONLYOrdered By: Mohini Ramirez on 11-14-2021 [facility] Work Phone: Complete Blood Counton 11-07 Erythrocyte distribution width (RBC) [Ratio] 17.0 % High 11.0-15.0 [facility] [employer] Comment on above: Performed By: #### C BC #### [facility] [address] [place], [place] [id number] Hematocrit (Bld) [Volume fraction] 37.3 % Normal 35.0-47.0 [facility] [employer] Comment on above: Performed By: #### C BC #### [facility] [address] [place], [place] [id number] Hemoglobin (Bld) [Mass/Vol] 11.6 g/dL Normal 11.6-15.5 [facility] [employer] Comment on above: Performed By: #### C BC #### [facility] [address] [place], [place] [id number] MCH (RBC) [Entitic mass] 28.6 pg Normal 27.0-33.0 [facility] [employer] Comment on above: Performed By: #### C BC #### [facility] [address] [place], [place] [id number] MCHC (RBC) [Mass/Vol] 31.1 g/dL Low 32.0-36.0 [facility] Comment on above: Performed By: #### C BC #### [facility] [address] [place], [place] [id number] MCV (RBC) [Entitic vol] 92 fL Normal 80-100 [facility] Comment on above: Performed By: #### C BC #### [facility] [address] [place], [place] [id number] Platelet mean volume (Bld) [Entitic vol] 11.10 fL Normal 7.50-12.50 [facility] Comment on above: Performed By: #### C BC #### [facility] [address] [place], [place] [id number] Platelets (Bld) [#/Vol] 155 10*3/uL Normal 140-400 [facility] Comment on above: Performed By: #### C BC #### [facility] [address] [place], [place] [id number] RBC (Bld) [#/Vol] 4.06 10*6/uL Normal 3.90-5.20 [facility] Specialist Comment on above: Performed By: #### C BC #### [facility] [address] [place], [place] [id number] RDW-SD 57.8 fL High 37.0-50.0 [facility] Comment on above: Performed By: #### C BC #### [facility] [address] [place], [place] [id number] WBC (Bld) [#/Vol] 5.6 10*3/uL Normal 3.8-11.0 [facility] Specialist Comment on above: Performed By: #### C BC #### [facility] [address] [place], [place] [id number] Vital Signs Date Time Vital Sign Value Performing Clinician Facility 09-10-2025 10:11 Body height 157.5 cm Tyshawn Hickman MD Work Phone: [facility] 09-10-2025 10:11040 Body mass index (BMI) [Ratio] 32.19 kg/m2 Tyshawn Hickman MD Work Phone: [facility] 09-10-2025 10:11-0400 Body weight 79.83 kg Tyshawn Hickman MD Work Phone: [facility] 09-10-2025 10:11-0400 Diastolic blood pressure 70 mm[Hg] Tyshawn Hickman MD Work Phone: [facility] 09-10-2025 10:11-0400 Heart rate 68 /min Tyshawn Hickman MD Work Phone: [facility] 09-10-2025 10:11-0400 SaO2% (BldA) [Mass fraction] 97 % Tyshawn Hickman MD Work Phone: [facility] 09-10-2025 10:11-0400 Systolic blood pressure 126 mm[Hg] Tyshawn Hickman MD Work Phone: [facility] 05-14-2025 08:48-0400 Body height 157.5 cm Tyshawn Hickman MD Work Phone: [facility] 05-14-2025 08:48-0400 Body mass index (BMI) [Ratio] 32.92 kg/m2 Tyshawn Hickman MD Work Phone: [facility] 05-14-2025 08:48-0400 Body weight 81.65 kg Tyshawn Hickman MD Work Phone: [facility] 05-14-2025 08:48-0400 Diastolic blood pressure 66 mm[Hg] Tyshawn Hickman MD Work Phone: [facility] 05-14-2025 08:48-0400 Heart rate 79 /min Tyshawn Hickman MD Work Phone: [facility] 05-14-2025 08:48-0400 SaO2% (BldA) [Mass fraction] 98 % Tyshawn Hickman MD Work Phone: [facility] 05-14-2025 08:48-0400 Systolic blood pressure 122 mm[Hg] Tyshawn Hickman MD Work Phone: [facility] 04-12-2025 09:58-0400 Body height 157.5 cm Tyshawn Hickman MD Work Phone: [facility] 04-12-2025 09:58-0400 Body mass index (BMI) [Ratio] 33.29 kg/m2 Tyshawn Hickman MD Work Phone: [facility] 04-12-2025 09:58-0400 Body weight 82.56 kg Tyshawn Hickman MD Work Phone: [facility] 04-12-2025 09:58-0400 Diastolic blood pressure 66 mm[Hg] Tyshawn Hickman MD Work Phone: [facility] 04-12-2025 09:58-0400 Heart rate 77 /min Tyshawn Hickman MD Work Phone: [facility] 04-12-2025 09:58-0400 SaO2% (BldA) [Mass fraction] 94 % Tyshawn Hickman MD Work Phone: [facility] 04-12-2025 09:58-0400 Systolic blood pressure 130 mm[Hg] Tyshawn Hickman MD Work Phone: [facility] 03-31-2025 15:15-0400 Body height 157.5 cm Shanika Fuad DO Work Phone: [facility] 03-31-2025 15:15-0400 Body mass index (BMI) [Ratio] 34.09 kg/m2 Shanika Fuad DO Work Phone: [facility] 03-31-2025 15:15-0400 Body weight 84.55 kg Shanika Fuad DO Work Phone: [facility] 03-31-2025 15:15-0400 Heart rate 76 /min Shanika Fuad DO Work Phone: [facility] 03-31-2025 15:15-0400 SaO2% (BldA) [Mass fraction] 94 % Shanika Fuad DO Work Phone: [facility] 01-11-2025 10:27-0500 Body height 157.5 cm Tyshawn Hickman MD Work Phone: [facility] 01-11-2025 10:27-0500 Body mass index (BMI) [Ratio] 33.62 kg/m2 Tyshawn Hickman MD Work Phone: [facility] 01-11-2025 10:27-0500 Body weight 83.37 kg Tyshawn Hickman MD Work Phone: [facility] 01-11-2025 10:27-0500 Diastolic blood pressure 64 mm[Hg] Tyshawn Hickman MD Work Phone: [facility] 01-11-2025 10:27-0500 Heart rate 69 /min Tyshawn Hickman MD Work Phone: [facility] 01-11-2025 10:27-0500 Respiratory rate 17 /min Tyshawn Hickman MD Work Phone: [facility] 01-11-2025 10:27-0500 SaO2% (BldA) [Mass fraction] 95 % Tyshawn Hickman MD Work Phone: [facility] 01-11-2025 10:27-0500 Systolic blood pressure 136 mm[Hg] Tyshawn Hickman MD Work Phone: [facility] 12-09-2024 09:00-0500 Body height 157.5 cm Shanika Fuad DO Work Phone: [facility] 12-09-2024 09:00-0500 Body mass index (BMI) [Ratio] 34.9 kg/m2 Shanika Fuad DO Work Phone: [facility] 12-09-2024 09:00-0500 Body weight 86.55 kg Shanika Fuad DO Work Phone: [facility] 12-09-2024 09:00-0500 Diastolic blood pressure 66 mm[Hg] Shanika Fuad DO Work Phone: [facility] 12-09-2024 09:00-0500 Heart rate 83 /min Shanika Fuad DO Work Phone: [facility] 12-09-2024 09:00-0500 SaO2% (BldA) [Mass fraction] 97 % Shanika Fuad DO Work Phone: [facility] 12-09-2024 09:00-0500 Systolic blood pressure 118 mm[Hg] Shanika Merida DO Work Phone: [facility] 10-06-2024 11:13-0500 Body height 157.48 cm [facility] 10-06-2024 11:130500 Body mass index (BMI) [Ratio] 33.8 kg/m2 [facility] 10-06-2024 11:130500 Body weight 83.91 kg [facility] 10-06-2024 11:13-0500 Diastolic blood pressure 56 mm[Hg] [facility] 10-06-2024 11:13-0500 Heart rate 88 /min [facility] 10-06-2024 11:13-0500 SaO2% (BldA) [Mass fraction] 96 % [facility] 10-06-2024 11:13-0500 Systolic blood pressure 137 mm[Hg] [facility] 09-28-2024 09:24-0400 Body mass index (BMI) [Ratio] 34.42 kg/m2 Tyshawn Hickman MD Work Phone: [facility] 09-28-2024 09:24-0400 Body weight 85.37 kg Tyshawn Hickman MD Work Phone: [facility] 09-28-2024 09:24-0400 Diastolic blood pressure 75 mm[Hg] Tyshawn Hickman MD Work Phone: [facility] 09-28-2024 09:24-0400 Heart rate 79 /min Tyshawn Hickman MD Work Phone: [facility] 09-28-2024 09:24-0400 Respiratory rate 18 /min Tyshawn Hickman MD Work Phone: [facility] 09-28-2024 09:24-0400 SaO2% (BldA) [Mass fraction] 97 % Tyshawn Hickman MD Work Phone: [facility] 09-28-2024 09:24-0400 Systolic blood pressure 140 mm[Hg] Tyshawn Hickman MD Work Phone: [facility] 09-10-2024 10:49-0400 Body height 157.5 cm Tyshawn Hickman MD Work Phone: [facility] 09-10-2024 10:49-0400 Body mass index (BMI) [Ratio] 33.65 kg/m2 Tyshawn Hickman MD Work Phone: [facility] 09-10-2024 10:49-0400 Body weight 83.46 kg Tyshawn Hickman MD Work Phone: [facility] 09-10-2024 10:49-0400 Diastolic blood pressure 80 mm[Hg] Tyshawn Hickman MD Work Phone: [facility] 09-10-2024 10:49-0400 Heart rate 94 /min Tyshawn Hickman MD Work Phone: [facility] 09-10-2024 10:49-0400 SaO2% (BldA) [Mass fraction] 97 % Tyshawn Hickman MD Work Phone: [facility] 09-10-2024 10:49-0400 Systolic blood pressure 132 mm[Hg] Tyshawn Hickman MD Work Phone: [facility] 12-12-2023 15:42-0500 Body height 157.5 cm Jeyson Lew MD Work Phone: [facility] 12-12-2023 15:42-0500 Body mass index (BMI) [Ratio] 33.11 kg/m2 Jeyson Lew MD Work Phone: [employer] [facility] 12-12-2023 15:42-0500 Body weight 82.1 kg Jeyson Lew MD Work Phone: [employer] [facility] 10-08-2023 13:00-0500 Body height 157.48 cm Pb [facility] Other [employer] Other 10-08-2023 13:00-0500 Body mass index (BMI) [Ratio] 32.55 kg/m2 Pb [facility] Other [employer] Other 10-08-2023 13:00-0500 Body weight 80.74 kg Pb Daniele Other [employer] Other 10-08-2023 13:00-0500 Diastolic blood pressure 67 mm[Hg] Pb [employer] Other [employer] Other 10-08-2023 13:00-0500 SaO2% (BldA) [Mass fraction] 95 % Pb [employer] Other [employer] Other 10-08-2023 13:00-0500 Systolic blood pressure 124 mm[Hg] Pb [facility]ab[facility] Other [employer] Other 11-27-2022 15:05-0500 Body height 157.5 cm Doug Sahni [employer] Work Phone: [employer] 11-27-2022 15:05-0500 Body mass index (BMI) [Ratio] 34.39 kg/m2 Doug Sahni [employer] Work Phone: [employer] 11-27-2022 15:05-0500 Body temperature 97 [degF] Doug Sahni [employer] Work Phone: [employer] 11-27-2022 15:05-0500 Body weight 85.28 kg Doug Sahni [employer] Work Phone: [employer] 08-08-2022 08:48-0400 Body height 157.5 cm Serafin Calles MD Work Phone: [employer] 08-08-2022 08:48-0400 Body mass index (BMI) [Ratio] 34.56 kg/m2 Serafin Calles MD Work Phone: [employer] 08-08-2022 08:48-0400 Body temperature 98.49 [degF] Serafin Calles MD Work Phone: [employer] 08-08-2022 08:48-0400 Body weight 85.7 kg Serafin Calles MD Work Phone: [employer] [facility] 08-01-2022 11:19-0400 Body height 157.5 cm Jeyson Lew MD Work Phone: [employer] [facility] 08-01-2022 11:19-0400 Body mass index (BMI) [Ratio] 34.57 kg/m2 Jeyson Lew MD Work Phone: [employer] [facility] 08-01-2022 11:19-0400 Body weight 85.73 kg Jeyson Lew MD Work Phone: [employer] [facility] 04-06-2022 09:43-0400 Body height 157.5 cm Jeyson Lew MD Work Phone: [employer] [facility] 04-06-2022 09:43-0400 Body mass index (BMI) [Ratio] 34.57 kg/m2 Jeyson Lew MD Work Phone: [employer] [facility] 04-06-2022 09:43-0400 Body weight 85.73 kg Jeyson Lew MD Work Phone: [employer] [facility] 12-07-2021 14:22-0500 Body height 157.5 cm Doug Kaitlyn [employer] Work Phone: [employer] [facility] 12-07-2021 14:22-0500 Body mass index (BMI) [Ratio] 34.57 kg/m2 Dougherson Atkinsoney [employer] Work Phone: [employer] [facility] 12-07-2021 14:22-0500 Body temperature 98.2 [degF] Doug Sahni [employer] Work Phone: [employer] [facility] 12-07-2021 14:22-0500 Body weight 85.73 kg Doug Sahni [employer] Work Phone: [employer] [facility] 11-14-2021 18:30-0500 Diastolic blood pressure 68 mm[Hg] Jeyson Lew MD Work Phone: [employer] [facility] 11-14-2021 18:30-0500 Heart rate 73 /min Jeyson Lew MD Work Phone: [employer] 11-14-2021 18:30-0500 Respiratory rate 20 /min Jeyson Lew MD Work Phone: [employer] 11-14-2021 18:30-0500 SaO2% (BldA) [Mass fraction] 96 % Jeyson Lew MD Work Phone: [employer] 11-14-2021 18:30-0500 Systolic blood pressure 154 mm[Hg] Jeyson Lew MD Work Phone: [employer] 11-14-2021 12:44-0500 Body temperature 98.2 [degF] Jeyson Lew MD Work Phone: [employer] 11-14-2021 08:23-0500 Body height 157.5 cm Jeyson Lew MD Work Phone: [employer] 11-14-2021 08:23-0500 Body mass index (BMI) [Ratio] 34.39 kg/m2 Jeyson Lew MD Work Phone: [employer] 11-14-2021 08:23-0500 Body weight 85.28 kg Jeyson Lew MD Work Phone: [employer] 10-03-2021 14:00-0400 Body height 157.48 cm Pb [employer] Other [employer] Other 10-03-2021 14:00-0400 Body mass index (BMI) [Ratio] 35.3 kg/m2 Pb [employer] Other [employer] Other 10-03-2021 14:00-0400 Body temperature 97.7 [degF] Pb [employer] Other [employer] Other 10-03-2021 14:00-0400 Body weight 87.54 kg Pb [facility] Other [employer] Other 10-03-2021 14:00-0400 Diastolic blood pressure 71 mm[Hg] Pb [employer] Other [employer] Other 10-03-2021 14:00-0400 SaO2% (BldA) [Mass fraction] 98 % Pb [employer] Other [employer] Other 10-03-2021 14:00-0400 Systolic blood pressure 146 mm[Hg] Pb [employer] Other [employer] Other Encounters Encounter Date Encounter Type Care Provider Facility Start: 09-10-2025 End: 09-10-2025 Bamboo flowsheet Tyshawn Hickman MD Work Phone: [facility] Start: 09-10-2025 End: 09-10-2025 Bamboo [employer] Tyshawn Hickman MD Work Phone: [facility] Start: 09-10-2025 End: 09-10-2025 Office outpatient visit 25 minutes Tyshawn Hickman MD Work Phone: [facility] Comment on above: Type 2 diabetes loida itus with other specified complication, without long-term current use of insulin (HCC) (Primary Dx); Flu vaccine need; Encounter for screening mammogram for breast cancer; Major depressive disorder, recurrent, in remission, unspecified; Other iron deficiency anemia; Diastolic CHF with preserved left ventricular function, NYHA class 2 (HCC); Aortic heart murmur; Osteopenia, unspecified location; Mixed hyperlipidemia; Chronic diastolic heart failure (HCC) Start: 09-10-2025 End: 09-10-2025 ambulatory TYSHAWN HICKMAN Not Available Start: 05-14-2025 End: 05-14-2025 Bamboo flowsheet Tyshawn Hickman MD Work Phone: [facility] Start: 05-14-2025 End: 05-14-2025 Bamboo flowsheet Tyshawn Hickman MD Work Phone: [facility] Start: 05-14-2025 End: 05-14-2025 Office outpatient visit 25 minutes Tyshawn Hickman MD Work Phone: [facility] Comment on above: Iron deficiency anem ia due to chronic blood loss (Primary Dx); Gout of foot, unspecified cause, unspecified chronicity, unspecified laterality; Non-seasonal allergic rhinitis, unspecified trigger Start: 05-14-2025 End: 05-14-2025 ambulatory TYSHAWN HICKMAN Not Available Start: 05-10-2025 End: 05-10-2025 Telephone encounter Tyshawn Hickman MD Work Phone: [facility] Start: 04-12-2025 End: 04-12-2025 Bamboo flowsheet Tyshawn Hickman MD Work Phone: [facility] Start: 04-12-2025 End: 04-12-2025 Bamboo flowsheet Tyshawn Hickman MD Work Phone: [facility] Start: 04-12-2025 End: 04-12-2025 Assay of hemosiderin, quant Tyshawn Hickman MD Work Phone: [facility] Start: 04-12-2025 End: 04-12-2025 Patient encounter procedure Tyshawn Hickman MD Work Phone: [facility] Comment on above: Wellness examination (Primary Dx); ACP (advance care planning); Chronic obstructive pulmonary disease, unspecified COPD type (CMS/HCC); Unspecified cirrhosis of liver (CMS/HCC); Panlobular emphysema (CMS/HCC); Benign essential hypertension (CMS/HCC); Diastolic CHF with preserved left ventricular function, NYHA class 2 (CMS/HCC); Nonalcoholic fatty liver disease; Acquired cystic kidney disease; Type 2 diabetes mellitus with other specified complication, unspecified whether residential insulin use (CMS/HCC); Mixed hyperlipidemia (CMS/HCC); Obesity (BMI 30-39.9); Routine general medical examination at health care facility Start: 04-12-2025 End: 04-12-2025 Patient encounter status Tyshawn Hickman MD Work Phone: [facility] Start: 04-12-2025 End: 04-12-2025 ambulatory TYSHAWN B HICKMAN Not Available Start: 03-31-2025 End: 03-31-2025 Office outpatient visit 25 minutes Shanika Selin Fuad DO Work Phone: [facility] Comment on above: Moderate persistent asthma without complication (CMS/HCC) (Primary Dx) Start: 03-31-2025 End: 03-31-2025 ambulatory SHANIKAMACK MREIDA Not Available Start: 03-31-2025 End: 03-31-2025 Bamboo flowsheet Shanika K Fuad DO Work Phone: [facility] Start: 03-31-2025 End: 03-31-2025 Bamboo flowsheet Shanika K Fuad DO Work Phone: [facility] Start: 03-16-2025 End: 03-16-2025 ambulatory SHANIKA Selin MERIDA Not Available Start: 01-11-2025 End: 01-11-2025 Bamboo flowsheet Tyshawn Hickman MD Work Phone: [facility] Start: 01-11-2025 End: 01-11-2025 Bamboo flowsheet Tyshawn Hickman MD Work Phone: [facility] Start: 01-11-2025 End: 01-11-2025 Office outpatient visit 25 minutes Tyshawn Hickman MD Work Phone: [facility] Comment on above: Type 2 diabetes loida itus with other specified complication, without long-term current use of insulin (CMS/HCC); Moderate persistent asthma without complication (CMS/HCC) Start: 01-11-2025 End: 01-11-2025 ambulatory TYSHANW HICKMAN Not Available Start: 12-09-2024 End: 12-09-2024 Bamboo flowsheet Shanika Selin Fuad DO Work Phone: [facility] Start: 12-09-2024 End: 12-09-2024 Bamboo flowsheet Shanika K Fuad DO Work Phone: [facility] Start: 12-09-2024 End: 12-09-2024 Office outpatient new 45 minutes Shanika K Fuad DO Work Phone: [facility] Comment on above: Abnormal CT scan of lung (Primary Dx); Moderate persistent asthma without complication (CMS/HCC) Start: 12-09-2024 End: 12-09-2024 ambulatory SHANIKA MERIDA Not Available Start: 10-06-2024 End: 10-06-2024 ambulatory [facility] Work Phone: Start: 10-06-2024 End: 10-06-2024 Patient encounter procedure [facility] Work Phone: Start: 09-28-2024 End: 09-28-2024 Bamboo flowsheet Tyshawn Hickman MD Work Phone: [facility] Start: 09-28-2024 End: 09-28-2024 Bamboo flowsheet Tyshawn Hickman MD Work Phone: [facility] Start: 09-28-2024 End: 09-28-2024 Office outpatient visit 25 minutes Tyshawn Hickman MD Work Phone: [facility] Comment on above: Moderate persistent asthma without complication (CMS/HCC) (Primary Dx); Chronic cough Start: 09-28-2024 End: 09-28-2024 ambulatory TYSHAWN HICKMAN Not Available Start: 09-23-2024 End: 09-23-2024 ambulatory TYSHAWN HICKMAN Not Available Start: 09-22-2024 End: 09-22-2024 ambulatory TYSHAWN HICKMAN Not Available Start: 09-10-2024 End: 09-10-2024 Bamboo flowsheet Tyshawn Hickman MD Work Phone: [facility] Start: 09-10-2024 End: 09-10-2024 Bamboo flowsheet Tyshawn Hickman MD Work Phone: [facility] Start: 09-10-2024 End: 09-10-2024 Office outpatient visit 25 minutes Tyshawn Hickman MD Work Phone: [facility] Comment on above: Type 2 diabetes loida itus with other specified complication, without long-term current use of insulin (CMS/HCC) (Primary Dx); Flu vaccine need; Chronic cough; Chronic obstructive pulmonary disease, unspecified COPD type (CMS/HCC) Start: 08-17-2024 End: 08-17-2024 ambulatory Erich Terry MD Facility:[facility] Start: 07-27-2024 End: 07-27-2024 ambulatory Erich Terry MD Facility:[facility] Start: 12-12-2023 ambulatory [facility] Start: 12-12-2023 ambulatory [facility] Start: 12-12-2023 End: 12-12-2023 Office outpatient visit 15 minutes Jeyson Lew MD Work Phone: [facility] Comment on above: 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 Start: 10-08-2023 Office outpatient vi sit 25 minutes Pb Sanabria [facility] Start: 10-08-2023 End: 10-08-2023 ambulatory NAYANA Hickman Work Phone: [facility] Work Phone: Start: 10-08-2023 End: 10-08-2023 Patient encounter procedure II Tyshawn Hickman Work Phone: [facility] Work Phone: Start: 02-28-2023 End: 03-01-[address] TYSHAWN HICKMAN Facility: Start: 01-03-2023 ambulatory [facility] Start: 11-27-2022 End: 11-27-2022 Office outpatient visit 15 minutes Doug Sahni [employer] Work Phone: [facility] [place] Comment on above: Primary osteoarthrit is of one hip, left (Primary Dx) Start: 11-27-2022 End: 11-27-2022 Subsequent hospital visit by physician Doug Sahni [facility] [employer] Work Phone: [facility] Start: 10-03-2022 End: 10-03-[address] ROLA IVORY Facility:[facility] Start: 09-17-2022 End: 09-17-2022 ambulatory ALEXANDRA DOE . Facility:[facility] Start: 08-08-2022 End: 08-08-2022 Office outpatient new 30 minutes Serafin Calles MD Work Phone: [facility] [place] Comment on above: Trigger finger of le ft hand, unspecified finger (Primary Dx) Start: 08-01-2022 End: 08-01-2022 Office outpatient visit 15 minutes Jeyson Lew MD Work Phone: [facility] Comment on above: Hx of total hip arth roplasty, left (Primary Dx); Pain due to left hip joint prosthesis, sequela Start: 08-01-2022 End: 08-01-2022 Subsequent hospital visit by physician Jeyson Lew MD Work Phone: [facility] Start: 06-07-2022 End: 06-08-[address] TYSHAWN HICKMAN Facility:[facility] Start: 05-28-2022 End: 05-29-[address] TYSHAWN HICKMAN Facility:[facility] Start: 05-26-2022 End: 05-26-[address] TYSHAWN HICKMAN Facility:[facility] Start: 05-10-2022 End: 05-10-[address] APRIL LÓPEZ . Facility:[facility] Start: 04-06-2022 End: 04-06-2022 Office outpatient visit 15 minutes Jeyson Lew MD Work Phone: [facility] [place] Comment on above: Hx of total hip arth roplasty, left (Primary Dx) Start: 04-06-2022 End: 04-06-2022 Subsequent hospital visit by physician Jeyson Lew MD Work Phone: [facility] Start: 01-10-2022 End: 01-19-2022 Postop follow up visit related to original px Doug SNOW Work Phone: [facility] Comment on above: Hx of total hip arth roplasty, left (Primary Dx) Start: 12-07-2021 End: 12-07-2021 Postop follow up visit related to original px Jeyson Lew MD Work Phone: [facility] Comment on above: Hx of total hip arth roplasty, left (Primary Dx) Start: 12-07-2021 End: 12-07-2021 Subsequent hospital visit by physician Doug SNOW Work Phone: [facility] Start: 11-14-2021 End: 11-14-2021 Patient encounter status Jeyson Lew MD Work Phone: [facility] Start: 11-14-2021 End: 11-14-2021 Subsequent hospital visit by physician Jeyson Lew MD Work Phone: [facility] Comment on above: Primary osteoarthrit is of left hip Start: 11-06-2021 End: 11-06-2021 Admission to establishment Santiago Deysi Ont Pat Testing [facility] Comment on above: Preop testing (Prima ry Dx) Start: 11-06-2021 End: 11-06-2021 Patient encounter status Santiago Deysi Ont Pat Testing [facility] Start: 10-03-2021 End: 10-03-2021 ambulatory Pb Sanabria Other [employer] Other Start: 10-03-2021 Office outpatient vi sit 25 minutes Pb Sanabria [facility] Procedures Date Procedure Procedure Detail Performing Clinician Start: 09-10-2025 Hemoglobin glycosyla tonia a1c Tyshawn Hickman MD Work Phone: Start: 01-11-2025 Hemoglobin glycosyla tonia a1c Tyshawn Hickman MD Work Phone: Start: 09-10-2024 Hemoglobin glycosyla tonia a1c Tyshawn Hickman MD Work Phone: Start: 03-20-2024 Mammography Tyshawn verdin MD Work Phone: Start: 08-08-2022 Injection 1 tendon sheath/ligament aponeurosis Serafin Calles MD Work Phone: Start: 11-14-2021 Blood count hematocrit Doug Sahni [employer] [employer] Work Phone: Start: 11-14-2021 Gluc bld gluc mntr d ev cleared fda spec home use Jeyson Lew MD Work Phone: Start: 11-14-2021 Radiologic examinati on pelvis 1/2 views Doug Sahni [employer] [employer] Work Phone: Start: 11-14-2021 Iadna nos amplified probe tq each organism Doug Sahni [employer] [employer] Work Phone: Start: 11-14-2021 Blood typing serologic abo Jeyson Lew MD Work Phone: Start: 11-14-2021 Prothrombin time Jeyson Lew MD Work Phone: Start: 10-04-2021 Colonoscopy Tyshawn verdin MD Work Phone: Plan of Treatment Date Care Activity Detail Author Start: 09-17-2032 Tetanus vaccination TETANUS [facility] Start: 10-04-2031 Screening for malign ant neoplasm of colon [facility] Start: 04-12-2026 Urine screening for protein Diabetes: Urine Protein Screening [facility] Start: 12-11-2025 Hemoglobin A1c measurement Diabetes: Hemoglobin A1C [facility] Start: 10-01-2025 End: 10-01-2025 Patient encounter procedure 10/01/2025 10:30 AM EDT [facility] [address] [facility] [address] [place] [id number] Tyshawn Hickman MD [address] [facility] [address] [place], [place] [phone] [facility] Start: 09-10-2025 End: 09-10-2027 Echocardiogram 2D complete Echocardiogram 2D complete Echocardiography Routine Diastolic CHF with preserved left ventricular function, NYHA class 2 (HCC) Aortic heart murmur Expected: 09/10/2025 (Approximate), Expires: 09/10/2027 [facility] Comment on above: Expected: 09/10/2025 (Approximate), Expires: 09/10/2027 Start: 09-10-2025 End: 09-10-2026 Ferritin [Mass/volume] in Serum or Plasma Ferritin Lab Routine Other iron deficiency anemia Expected: 09/10/2025 (Approximate), Expires: 09/10/2026 [facility] Comment on above: Expected: 09/10/2025 (Approximate), Expires: 09/10/2026 Start: 09-10-2025 End: 09-10-2026 Iron + transferrin + TIBC Iron + transferrin + TIBC Lab Routine Other iron deficiency anemia Expected: 09/10/2025 (Approximate), Expires: 09/10/2026 [facility] Comment on above: Expected: 09/10/2025 (Approximate), Expires: 09/10/2026 Start: 09-10-2025 End: 11-10-2026 MG Breast - bilateral Screening Bilateral screening mammogram Imaging Routine Encounter for screening mammogram for breast cancer Expected: 09/10/2025 (Approximate), Expires: 11/10/2026 [facility] Work Phone: Comment on above: Expected: 09/10/2025 (Approximate), Expires: 11/10/2026 Start: 09-10-2025 End: 09-10-2025 Patient encounter procedure 09/10/2025 10:30 AM EDT Office Visit [facility] [facility] [address] [facility] [address] [place] [phone] Tyshawn Hickman MD [address] [facility] [address] [place] [address] Arrived [facility] Comment on above: Arrived Start: 08-02-2025 Influenza vaccination Influenza Vacc ine (#1) [facility] Start: 07-15-2025 End: 07-15-2025 Patient encounter procedure 07/15/2025 11:00 AM EDT Office Visit [facility] [address] [facility] [address] [place] [phone] Tyshawn Hickman MD 112 [facility] [address] [place] [address] [facility] Start: 06-10-2025 Urine screening for protein Diabetes: Urine Protein Screening [facility] Start: 05-14-2025 End: 07-02-2025 CBC W Auto Differential panel - Blood CBC and differential Lab Routine Iron deficiency anemia due to chronic blood loss Expected: 05/14/2025 (Approximate), Expires: 07/02/2025 [facility] Healthcare Work Phone: Comment on above: Expected: 05/14/2025 (Approximate), Expires: 07/02/2025 Start: 05-14-2025 End: 05-14-2025 Patient encounter procedure [facility] Comment on above: Arrived Start: 04-12-2025 End: 04-12-2026 Comprehensive metabolic 2000 panel - Serum or Plasma Comprehensive metabolic panel Lab Routine Diastolic CHF with preserved left ventricular function, NYHA class 2 ([facility]) Acquired cystic kidney disease Expected: 04/12/2025 (Approximate), Expires: 04/12/2026 [facility] Comment on above: Expected: 04/12/2025 (Approximate), Expires: 04/12/2026 Start: 04-12-2025 End: 04-12-2026 Lipid 1996 panel - Serum or Plasma Lipid panel Lab Routine Mixed hyperlipidemia ([facility]) Expected: 04/12/2025 (Approximate), Expires: 04/12/2026 [facility] Comment on above: Expected: 04/12/2025 (Approximate), Expires: 04/12/2026 Start: 04-12-2025 End: 04-12-2026 TSH W/REFLEX TO FT4 TSH W/REFLEX TO FT4 Lab Routine Type 2 diabetes mellitus with other specified complication, unspecified whether residential insulin use ([facility]) Expected: 04/12/2025 (Approximate), Expires: 04/12/2026 [facility] Comment on above: Expected: 04/12/2025 (Approximate), Expires: 04/12/2026 Start: 04-12-2025 End: 04-12-2025 Patient encounter procedure [facility] Comment on above: Arrived Start: 04-10-2025 Hemoglobin A1c measurement Diabetes: Hemoglobin A1C [facility] Healthcare Start: 03-31-2025 End: 03-31-2025 Patient encounter procedure [facility] Comment on above: Arrived Start: 03-20-2025 Screening for malign ant neoplasm of breast Mammogram [facility] Start: 03-09-2025 End: 12-09-2025 CT Chest WO contrast CT chest wo IV contrast Imaging Routine Abnormal CT scan of lung Expected: 03/09/2025, Expires: 12/09/2025 [facility] Work Phone: Comment on above: Expected: 03/09/2025 , Expires: 12/09/2025 Start: 01-11-2025 End: 01-11-2025 Patient encounter procedure [facility] Comment on above: Arrived Start: 12-11-2024 Hemoglobin A1c measurement Diabetes: Hemoglobin A1C [facility] Start: 12-09-2024 End: 12-09-2024 Patient encounter procedure 12/09/2024 10:15 AM EST Consult [facility] [address] [place] [address] Shanika Merida, DO [address] [place] [address] Moderate persistent asthma without complication (CMS/HCC) [facility] Comment on above: Moderate persistent asthma without complication (CMS/HCC) Start: 09-28-2024 End: 09-28-2024 Patient encounter procedure [facility] Comment on above: Arrived Start: 09-10-2024 End: 09-10-2025 CT Chest W contrast IV CT chest w IV contrast Imaging Routine Chronic cough Chronic obstructive pulmonary disease, unspecified COPD type (CMS/HCC) Expected: 09/10/2024, Expires: 09/10/2025 [facility] Comment on above: Expected: 09/10/2024 , Expires: 09/10/2025 Start: 09-10-2024 Hemoglobin A1c measurement Diabetes: Hemoglobin A1C [facility] Start: 09-10-2024 End: 09-10-2025 Pulmonary function report Pulmonary Function Test Imaging Routine Chronic obstructive pulmonary disease, unspecified COPD type ([facility]) Expected: 09/10/2024, Expires: 09/10/2025 [facility] Work Phone: Comment on above: Expected: 09/10/2024 , Expires: 09/10/2025 Start: 09-10-2024 End: 09-10-2024 Patient encounter procedure 09/10/2024 11:30 AM EDT Office Visit [facility] [address] [facility] [address] [place] [phone] Tyshawn Hickman MD [address] [facility] [address] [place] [address] Arrived [facility] Comment on above: Arrived Start: 08-03-2024 Tetanus vaccination TETANUS [facility] Start: 08-02-2024 Influenza vaccination Influenza Vacc ine (#1) [facility] Start: 10-10-2023 Glaucoma screening Diabetes: R etinopathy Screening [facility] Start: 10-09-2023 Pneumococcal vaccination PNEUMOCOCCAL VACCINE SERIES (3 - PPSV23 or PCV20) [facility] Start: 10-09-2023 Pneumococcal Vaccine : 65+ Years (3 of 3 - PCV20 or PCV21) Pneumococcal Vaccine: 65+ Years (3 of 3 - PCV20 or PCV21) [facility] Start: 08-02-2023 COVID-19 VACCINE (2022- season) COVID-19 VACCINE ( season) [facility] Start: 11-14-2022 End: 11-14-2022 Patient encounter procedure 11/14/2022 Office Visit Orthopaedics Doug Sahni, [employer] [employer] [address] [place] [address] [facility] Start: 10-10-2022 End: 10-10-2022 Patient encounter procedure 10/10/2022 Office Visit Orthopaedics Serafin Calles MD [address] [place] [address] [facility] Start: 10-04-2022 Screening for malign ant neoplasm of colon COLORECTAL CANCER SCREENING DISCUSSION [facility] Start: 08-31-2022 Potassium [Moles/volume] in Serum or Plasma POTASSIUM [facility] Start: 08-08-2022 End: 08-08-2022 Patient encounter procedure 08/08/2022 Office Visit Orthopaedics Serafin Calles MD [address] [place] [address] [facility] Start: 08-02-2022 Influenza vaccination INFLUENZA VACC INE (#1) [facility] Start: 03-15-2022 End: 03-15-2022 Patient encounter procedure 03/15/2022 Office Visit Orthopaedics Jeyson Lew MD [address] [place] [id number] [facility] Start: 12-28-2021 End: 12-28-2021 Patient encounter procedure [facility] Start: 12-07-2021 End: 12-07-2021 Patient encounter procedure 12/07/2021 Office Visit Orthopaedics Doug Sahni, [employer] [employer] [address] [place] [phone] [facility] Start: 11-14-2021 End: 11-14-2021 Admission to same day surgery center 11/14/2021 Surgery Multispecialty Jeyson Lew MD [address] [place] [id number] ARTHROPLASTY HIP TOTAL AL - LEFT [facility] Comment on above: ARTHROPLASTY HIP TOT AL AL - LEFT Start: 11-14-2021 End: 11-14-2021 Arthrp acetblr/prox fem prostc agrft/algrft ARTHROPLASTY HIP TOTAL LATERAL APPROACH Primary osteoarthritis of left hip 11/14/2021 10:00 AM EST [facility] Start: 11-14-2021 Subsequent hospital visit by physician 11/14/2021 Hospital Encounter Multispecialty Jeyson Lew MD [address] [place] [phone] Primary osteoarthritis of left hip [facility] Comment on above: Primary osteoarthrit is of left hip Start: 10-14-2021 Screening for malign ant neoplasm of colon FIT-DNA [facility] Start: 09-16-2021 COVID-19 VACCINE (3 - Booster for Moderna series) COVID-19 VACCINE (3 - Booster for Moderna series) [facility] Start: 08-17-2021 COVID-19 VACCINE (3 - Booster for Moderna series) COVID-19 VACCINE (3 - Booster for Moderna series) [facility] Start: 08-02-2021 Influenza vaccination INFLUENZA VACC INE (#1) [facility] Start: 05-12-2021 COVID-19 VACCINE (3 - Booster for Moderna series) COVID-19 VACCINE (3 - Booster for Moderna series) [facility] Start: 10-27-2020 Screening for malign ant neoplasm of breast MAMMOGRAM SCREENING DISCUSSION [facility] Start: 10-09-2019 Pneumococcal vaccination PNEUMOCOCCAL VACCINE SERIES (#3) [facility] Start: 10-09-2019 Pneumococcal Vaccine : 65+ Years (3 of 3 - PPSV23 or PCV20) Pneumococcal Vaccine: 65+ Years (3 of 3 - PPSV23 or PCV20) [facility] Start: 2017 Pneumococcal vaccination [facility] Start: 2002 Zoster vaccine hzv l bolivar for subcutaneous use ZOSTER (SHINGLES) VACCINE (1 of 2) [facility] Start: 1997 Colonoscopy COLORECTAL CAN CER SCREENING DISCUSSION [facility] Start: 1997 Screening for malign ant neoplasm of colon COLORECTAL CANCER SCREENING DISCUSSION [facility] Start: 1992 Fasting lipid profile LIPID SCREENIN G [facility] Start: 1992 Lipid panel LIPID SCREENING [facility] Start: 1992 Screening for malign ant neoplasm of breast MAMMOGRAM SCREENING DISCUSSION [facility] Start: 1992 Screening mammography MAMMOGRA M SCREENING DISCUSSION [facility] Start: 1973 Screening for malign ant neoplasm of cervix CERVICAL CANCER SCREENING DISCUSSION [facility] Start: 1971 Third diphtheria, tetanus and acellular pertussis (DTaP) vaccination TDAP (ADULT) [facility] Start: 1970 Tetanus vaccination TETANUS [facility] Start: 1952 Hepatitis C antibody , confirmatory test HEPATITIS C VIRUS SCREENING [facility] Start: 1952 Hepatitis C screening HEPATITI S C VIRUS SCREENING [facility] Start: 1952 Screening for malign ant neoplasm of colon [facility] Start: 1952 Screening for osteoporosis DEXA SCAN DISCUSSION [facility] CBC W Auto Different ial panel - Blood CBC and differential Lab Routine Diastolic CHF with preserved left ventricular function, NYHA class 2 (CMS/HCC) Acquired cystic kidney disease Ordered: 04/12/2025 [facility] Comment on above: Ordered: 04/12/2025 CBC W Auto Different ial panel - Blood CBC and differential Lab Routine Other iron deficiency anemia Ordered: 09/10/2025 [facility] Comment on above: Ordered: 09/10/2025 Microalbumin/Creatin ine panel in random Urine Microalbumin / creatinine urine ratio Lab Routine Type 2 diabetes mellitus with other specified complication, unspecified whether 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 wall 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 insulin use (CMS/HCC) Ordered: 04/12/2025 [facility] Work Phone: Comment on above: Ordered: 04/12/2025 End: 11-14-2021 Radiography of hip [facility] Work Phone: Comment on above: One Time for 1 Occur rences starting 11/14/2021 until 11/14/2021 Skeletal X-ray of pelvis and hip XR HIP WITH PELVIS LEFT Imaging Routine Hx of total hip arthroplasty, left 12/07/2021 1:53 PM [facility] Skeletal X-ray of pelvis and hip XR HIP WITH PELVIS LEFT Imaging Routine Hx of total hip arthroplasty, left 01/16/2022 9:52 AM EST [facility] SURGICAL PATHOLOGY REQUEST SURGICAL PATHOLOGY REQUEST Surg Path Routine Primary osteoarthritis of left hip Release Upon Ordering for 1 Occurrences starting 11/14/2021 [facility] Comment on above: Release Upon Orderin g for 1 Occurrences starting 11/14/2021 XR Pelvis and Hip - left Views XR HIP WITH PELVIS LEFT Imaging Routine Hx of total hip arthroplasty, left 04/06/2022 8:24 AM EDT [facility] Work Phone: XR Pelvis and Hip - left Views XR HIP WITH PELVIS LEFT Imaging Routine Hx of total hip arthroplasty, left 08/01/2022 10:18 AM EDT [facility] XR Pelvis and Hip - left Views XR HIP WITH PELVIS LEFT Imaging Routine Hx of total hip arthroplasty, left 11/27/2022 2:46 PM EST [facility] XR Pelvis and Hip - left Views XR HIP WITH PELVIS LEFT Imaging Routine Primary osteoarthritis of left hip 12/12/2023 3:34 PM [facility] Immunizations Immunization Date Immunization Notes Care Provider Fa [facility] 09-10-2025 influenza, high dose seasonal, preservative-free Tyshawn Hickman MD Work Phone: [facility] 09-10-2024 Influenza, High-dose Seasonal, Quadrivalent, Preservative Free Tyshawn Hickman MD Work Phone: [facility] 09-10-2024 influenza virus vacc ine, unspecified formulation Tyshawn Hickman MD Work Phone: [facility] 06-13-2024 zoster vaccine recombinant Tyshawn Hickman MD Work Phone: [facility] 03-14-2024 zoster vaccine recombinant Tysahwn Hickman MD Work Phone: [facility] 09-10-2023 Influenza, High-dose Seasonal, Quadrivalent, Preservative Free Tyshawn Hickman MD Work Phone: [facility] 09-10-2023 influenza virus vacc ine, unspecified formulation Tyshawn Hickman MD Work Phone: [facility] 09-17-2022 diphtheria, tetanus toxoids and pertussis vaccine Tyshawn Hickman MD Work Phone: [facility] 09-17-2022 tetanus toxoid, redu vika diphtheria toxoid, and acellular pertussis vaccine, adsorbed Tyshawn Hickman MD Work Phone: [facility] 09-12-2022 Moderna SARS-CoV-2 50mcg/0.5mL Booster Tyshawn Hickman MD Work Phone: [facility] 09-03-2022 influenza, injectabl e, quadrivalent, preservative free Tyshawn Hickman MD Work Phone: [facility] 09-06-2021 influenza, high dose seasonal, preservative-free Tyshawn Hickman MD Work Phone: [facility] 09-06-2021 influenza virus vacc ine, unspecified formulation Jeyson Lew MD Work Phone: [facility] 03-17-2021 COVID-19 mRNA-1273 (Moderna) II Tyshawn Hickman Work Phone: [facility] 02-17-2021 COVID-19 mRNA-1273 (Moderna) II Tyshawn Hickman Work Phone: [facility] 08-31-2020 Influenza, High-dose Seasonal, Quadrivalent, Preservative Free Tyshawn Hickman MD Work Phone: [facility] 08-31-2020 influenza virus vacc ine, unspecified formulation Santiago Deysi Ont Pat Testing [facility] 09-22-2019 Influenza, injectabl e, Madin Evelyne Canine Kidney, quadrivalent with preservative Tyshawn Hickman MD Work Phone: [facility] 10-09-2018 pneumococcal conjuga te vaccine, 13 valent Tyshawn Hickman MD Work Phone: [facility] 09-25-2018 Influenza, High-dose Seasonal, Quadrivalent, Preservative Free Tyshawn Hickman MD Work Phone: [facility] 09-11-2017 Influenza, High-dose Seasonal, Quadrivalent, Preservative Free Tyshawn Hickman MD Work Phone: [facility] 09-10-2016 influenza, injectabl e, quadrivalent, preservative free Tyshawn Hickman MD Work Phone: [facility] 08-15-2015 seasonal influenza, intradermal, preservative free Tyshawn Hickman MD Work Phone: [facility] 09-13-2014 influenza, seasonal, injectable Tyshawn Hickman MD Work Phone: [facility] 08-03-2014 pneumococcal polysaccharide vaccine, 23 valent Tyshawn Hickman MD Work Phone: [facility] 08-03-2014 tetanus toxoid, redu vika diphtheria toxoid, and acellular pertussis vaccine, adsorbed Tyshawn Hickman MD Work Phone: [facility] 09-11-2012 influenza, seasonal, injectable, preservative free Tyshawn Hickman MD Work Phone: [facility] Healthcare Payers Date Payer Category Payer Medicare [id number] 2022 Medicare (Managed Care) 1.2. [id number] 2021 Medicare [id number] 2021 Self-pay [id number] 2021 Medicare MEDICARE MEDICAR E A AND B [id number] 2021-Present [address] [place] [address] [id number]. [id number] 2019 Unknown GENERIC PAYOR ME DICARE SUPPLEMENT [id number] 2019-Present [phone] [address] [place] [address] [id number] [id number]. [id number] 2019 Unknown GENERIC PAYOR ME DICARE SUPPLEMENT [id number] 2019-Present [phone] [place] [address] [id number]. [id number] 2012 Medicare [id number]. [id number]. [id number] 1959 Medicare [id number] 2.16.840.1.512094.19 1959 Medicare [id number] 1959 Unknown [id number] 2.16.840.1.319128.19 1959 Unknown [id number] 1952 Unknown [id number] 2.16.840.1.105865.3.579.2. 593 1952 Unknown [id number] 2.16.840.1.088978.3.579.2. 593 1952 Unknown [id number] 2.16.840.1.614658.3.579.2. 593 1952 Unknown [id number] 2.16.840.1.395703.3.579.2. 593 1952 Unknown [id number] 2.16.840.1.081965.3.579.2. 593 1952 Unknown [id number] 2.16.840.1.137127.3.579.2. 593 1952 Unknown [id number] 2.16.840.1.317126.3.579.2. 593 1952 Unknown [id number] 2.16.840.1.745935.3.579.2. 727 1952 Unknown [id number] 2.16.840.1.021095.3.579.2. 983 1952 Unknown [id number] 2.16.840.1.455136.3.579.2. 983 1952 Unknown [id number] 2.16.840.1.199984.3.579.2. 983 1952 Unknown [id number] 2.16.840.1.404504.3.579.2. 983 1952 Unknown [id number] 2.16.840.1.961496.3.579.2. 196 1952 Unknown [id number] 2.16.840.1.261374.3.579.2. 196 1952 Unknown [id number] 2.16.840.1.595370.3.579.2. 1259 1952 Unknown [id number] 2.16.840.1.275848.3.579.2. 9 1952 Unknown [id number] 2.16.840.1.131506.3.579.2. 1259 1952 Unknown [id number] 2.16.840.1.962742.3.579.2. 1258 1952 Unknown [id number] 2.16.840.1.476384.3.579.2. 1259 1952 Unknown [id number] 2.16.840.1.934789.3.579.2. 1258 1952 Unknown [id number] 2.16.840.1.646726.3.579.2. 9 1952 Unknown [id number] 2.16.840.1.974278.3.579.2. 9 1952 Unknown [id number] 2.16.840.1.859531.3.579.2. 1259 1952 Unknown [id number] 2.16.840.1.234712.3.579.2. 1259 Unknown Tia / [id number] Unknown [id number] 2.16.840.1.071257.3.579.2. 531 Social History Date Type Detail Facility Start: 08-10-2021 End: 12-09-2024 Tobacco smoking status NHIS Ex-smoker [facility] Start: 08-10-2021 End: 12-09-2024 Tobacco use and exposure Smokeless tobacco non-user [facility] Start: 11-02-2021 End: 09-10-2025 Alcohol intake Lifetime non-drinker (finding) [facility] Start: 08-10-2021 History SDOH Alcohol Frequency 1 [facility] Start: 08-10-2021 End: 11-27-2022 Tobacco Comment Quit 1999 [facility] Start: 1950 Sex Assigned At Not on file A [facility] [employer] [facility] Exposure to SARS-CoV -2 (event) Not sure [facility] Start: 08-22-2023 End: 12-12-2023 Sex Assigned At [facility] Start: 12-04-1995 End: 12-04-2000 History of tobacco use Current smoker [facility] Start: 1950 Sex Assigned At Female F [facility] Tobacco smoking status No Smokin g Status Entered [facility] Start: 08-22-2023 End: 12-12-2023 History of Social function [facility] Start: 12-04-1995 End: 12-04-2000 History of tobacco use Cigarette Smoker [facility] Within the last year , have you been afraid of your partner or ex-partner? No [facility] Are you now , , , , never or living with a partner? [facility] How often to you hav e a drink containing alcohol? Never [facility] How many standard drinks containing alcohol do you have on a typical day? Patient does not drink [facility] Do you feel stress - tense, restless, nervous, or anxious, or unable to sleep at night because your mind is troubled all the time - these days [OSQ] Not at all [facility] (I/We) worried wheth er (my/our) food would run out before (I/we) got money to buy more. Never true [facility] Start: 10-07-2023 Alcohol Comment caffeine intak e: 1-2 cups per day once in a while [facility] How often do you nee d to have someone help you when you read instructions, pamphlets, or other written material from your doctor or pharmacy [SILS] Rarely [facility] Medical Equipment Procedure Code Equipment Code Equipment Original Text Equipment Identifier Dates [place] Gripton Acetabular Shell Sector 54mm Od [id number] Start: 11-14-2021 Altrx Polyethyle ne Acetabular Liner Neutral 36mm Id 54 Od [id number] Start: 11-14-2021 Femoral Stem Taper Actis Duofix Hip Prosthesis Cementless Size 6 Std Collar [id number] Start: 11-14-2021 Biolox Delta Cer amic Femoral Head +1.5 36mm Gracie 11/14 Taper [id number] Start: 11-14-2021 Suture Randolph, Biocompositie Corkscrew Ft, Vented With 1.3mm White/Blue And White/Black Suture Tape [id number] Start: 11-14-2021 Suture Randolph, Biocompositive Swivelock C, Closed Eyelet With #2 Fiberwire, 4.75 X 19.1mm [id number] Start: 11-14-2021 Suture Randolph, Biocompositive Swivelock C, Closed Eyelet With #2 Fiberwire, 4.75 X 19.1mm [id number] Start: 11-14-2021 [id number] Start: 12-02-2023 Functional Status Date Assessment Result Facility 09-10-2025 Patient Health [facility] ionnaire 2 item (PHQ-2) [Reported] [facility] 05-14-2025 Patient Health Quest ionnaire 2 item (PHQ-2) [Reported] [facility] 04-12-2025 Patient Health Quest ionnaire 2 item (PHQ-2) [Reported] [facility] Clinical Notes 10-03-2021 to 09-10-2025 Tyshawn Hickman MD - 09/10/2025 10:30 AM EDTTyshawn Hickman MD - 05/14/2025 8:45 AM EDTTelephone Encounter - Stacie Zhangisabel - 05/10/2025 1:18 PM EDTTyshawn Hickman MD - 04/12/2025 10:00 AM EDT Note Date & Type Note Facility 09-10-2025 History of Presen t illness Narrative Images from the original note were not included. HPI Results Additional comments: Cbc results Med Refill Additional comments: Fosamax,lipitor,metolprolol,lasix--m ail order Last edited by Tahira Hadley LPN on 09/10/2025 10:24 AM. Subjective Patient ID: Siria Petty is a 75 y.o. female who presents for Anemia, Diabetes, Results (Cbc results), and Med Refill (Fosamax,lipitor,metolprolol,lasix-- mail order). Diabetes Mellitus Patient presents for follow up of diabetes. Current symptoms include: hypoglycemia .Patient denies foot ulcerations, polydipsia, polyuria, visual disturbances, and vomiting. Evaluation to date has included: fasting blood sugar, fasting lipid panel, hemoglobin A1C, and microalbuminuria. Home sugars: BGs range between 135 and 155 Hypertension Patient is here for follow-up of elevated blood pressure. Cardiac symptoms: none. Patient denies chest pain, claudication, irregular heart beat, near-syncope, palpitations, paroxysmal nocturnal dyspnea, syncope, and tachypnea. Cardiovascular risk factors: advanced age (older than 55 for men, 65 for women), diabetes mellitus, dyslipidemia, hypertension, and obesity (BMI >= 30 kg/m2). Use of agents associated with hypertension: none. Taking ferrous sulfate completed labs work Anemia There has been no palpitations. Diabetes Pertinent negatives for diabetes include no chest pain and no fatigue. Med Refill Pertinent negatives include no chest pain or fatigue. Hypertension Associated symptoms include shortness of breath. Pertinent negatives include no chest pain or palpitations. Over the past 2 weeks, how often have you been bothered by any of the following problems? Little interest or pleasure in doing things: Not at all Feeling down, depressed, or hopeless: Not at all Patient Health Questionnaire-2 Score: 0 Current Outpatient Medications on File Prior to Visit Medication Sig Dispense Refill albuterol HFA (Ventolin HFA) 90 mcg/act inhaler Inhale 2 puffs every 4 (four) hours if needed for wheezing or shortness of breath 18 g 5 aspirin (ASPIR) 81 MG EC tablet Take 81 mg by mouth 1 (one) time each day at the same time Blood Glucose Calibration (Adometry By GoogleTouch Ultra) liquid Blood Glucose Monitoring Suppl (ONE TOUCH ULTRA 2) w/Device kit calcium citrate 600 mg and vitamin D3 (Citrical & Minerals + Vit D) 600-200 MG-UNIT tablet Take 2 tablets by mouth Daily cetirizine (ZyrTEC) 10 MG tablet Take 1 tablet (10 mg) by mouth Daily 90 tablet 3 cholecalciferol (D3-5) 5,000 Units tablet Take 5,000 Units by mouth Daily Colchicine 0.6 MG capsule Take 1 capsule by mouth 2 (two) times a day as needed (Take 1 tablet PO twice daily during gout flares) 60 capsule 2 cyanocobalamin (Vitamin B-12) 500 MCG tablet Take 500 mcg by mouth Daily ferrous sulfate 325 (65 Fe) MG tablet Take 1 tablet (325 mg) by mouth in the morning. Take with meals. 90 tablet 3 fluticasone (Flonase) 50 MCG/ACT nasal spray Administer 2 sprays into each nostril in the morning. Shake gently. Before first use, prime pump. After use, clean tip and replace cap.. 16 g 11 glucose blood (Adometry By GoogleTouch Ultra) test strip USE 1 STRIP TO CHECK GLUCOSE ONCE DAILY 100 each 3 ipratropium-albuterol (Duo-Neb) 0.5-2.5 mg/3 mL nebulizer solution Take 3 mL by nebulization 4 (four) times a day as needed for wheezing or shortness of breath 180 mL 3 Lancet Devices ([employer] Lancing Dev) misc metFORMIN (Glucophage) 500 MG tablet TAKE 1 TABLET BY MOUTH WITH A MEAL 3 TIMES DAILY 300 tablet 2 Multiple Vitamins-Minerals (MULTIVITAMIN ADULTS 50+ PO) Take by mouth nystatin-triamcinolone (Mycolog II) cream Apply topically every 12 (twelve) hours Pharmacist Choice Lancets misc [DISCONTINUED] alendronate (Fosamax) 70 MG tablet TAKE 1 TABLET BY MOUTH WEEKLY WITH 8 OZ OF PLAIN WATER 30 MINUTES BEFORE FIRST FOOD, DRINK OR MEDS. STAY UPRIGHT FOR 30 MINS 12 tablet 3 [DISCONTINUED] atorvastatin (Lipitor) 40 MG tablet TAKE 1 TABLET BY MOUTH AT BEDTIME 100 tablet 2 [DISCONTINUED] furosemide (Lasix) 20 MG tablet TAKE 1 TABLET BY MOUTH TWICE DAILY 200 tablet 2 [DISCONTINUED] metoprolol succinate XL (Toprol-XL) 25 MG 24 hr tablet TAKE 1 TABLET BY MOUTH ONCE DAILY 100 tablet 2 No current facility-administered medications on file prior to visit. I have reviewed and reconciled the history and medication list with the patient today. Allergies Allergen Reactions Cat Dander Itching and Runny nose Social History Tobacco Use Smoking status: Former Current packs/day: 0.00 Average packs/day: 0.3 packs/day for 5.0 years (1.3 ttl pk-yrs) Types: Cigarettes Start date: 12/04/1995 Quit date: 12/04/2000 Years since quittin.7 Smokeless tobacco: Never Vaping Use Vaping status: Never Used Substance Use Topics Alcohol use: Never Comment: caffeine intake: 1-2 cups per day once in a while Drug use: Defer Family History Problem Relation Name Age of Onset Mental illness Mother Alzheimer's disease Mother Stroke Mother Diabetes Mother Parkinsonism Father Diabetes Sister Diabetes Other Spouse Hypertension Other Spouse Heart disease Other Spouse Past Medical History: Diagnosis Date Acquired cyst of kidney Acute diastolic heart failure (HCC) Allergic rhinitis Allergies Arthritis Asthma ([facility]) Bronchitis CAD (coronary artery disease) Calculus, kidney CHF (congestive heart failure) ([facility]) Chronic airway obstruction ([facility]) Chronic diastolic congestive heart failure ([facility]) 12/03/2024 Chronic insomnia 12/03/2024 Chronic sinusitis Chronic systolic heart failure ([facility]) COPD (chronic obstructive pulmonary disease) ([facility]) Cyst of kidney, acquired Depression Depressive disorder Dermatophytosis Diabetes mellitus ([facility]) 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 Disorder of mineral metabolism, unspecified Diverticulosis Diverticulosis of colon without hemorrhage Edema Essential hypertension, benign Flank pain Right Hypercholesteremia Hypertension Insomnia with sleep apnea Menopausal and postmenopausal disorder Migraine headaches Obesity Morbid obesity Obstructive sleep apnea 12/03/2024 Osteopenia Osteoporosis Other specified diseases of pericardium ([facility]) Pneumonia Primary cardiomyopathy ([facility]) Pure hypercholesterolemia Rectocele without uterine prolapse Type 2 diabetes, diet controlled ([facility]) 12/03/2024 Vitamin D deficiency Past Surgical History: Procedure Laterality Date CARPAL TUNNEL RELEASE Right 1992 CHOLECYSTECTOMY COLONOSCOPY 10/04/2021 CT ABD AND PELVIS WOUT CONTRAST Right 2012 Rt Flank Pain CYSTOSCOPY 2012 DEXA BONE DENSITY 2013 EGD 10/04/2021 EYE EXAM 2014 GASTRIC BYPASS 2007 HERNIA REPAIR 2006 abdominal and hiatal KIDNEY STONE SURGERY 2013 kidney stone removal TONSILLECTOMY 1956 TOTAL HIP ARTHROPLASTY Left 11/15/2021 TUBAL LIGATION Visit Vitals BP 126/70 Pulse 68 Ht 5' 2 Wt 176 lb SpO2 97% BMI 32.19 kg/m Smoking Status Former BSA 1.87 m Review of Systems Constitutional: Negative for fatigue. Respiratory: Positive for shortness of breath. Cardiovascular: Negative for chest pain and palpitations. Objective Physical Exam Constitutional: General: She is not in acute distress. Appearance: Normal appearance. She is well-developed. HENT: Head: Normocephalic and atraumatic. Mouth/Throat: Pharynx: No posterior oropharyngeal erythema. Eyes: General: No scleral icterus. Conjunctiva/sclera: Conjunctivae normal. Cardiovascular: Rate and Rhythm: Normal rate and regular rhythm. Heart sounds: Murmur heard. Crescendo decrescendo systolic murmur is present with a grade of 3/6. Pulmonary: Effort: Pulmonary effort is normal. No respiratory distress. Breath sounds: Normal breath sounds. No wheezing, rhonchi or rales. Skin: General: Skin is warm and dry. Neurological: General: No focal deficit present. Mental Status: She is alert and oriented to person, place, and time. Psychiatric: Mood and Affect: Mood normal. Behavior: Behavior normal. Office Visit on 09/10/2025 Component Date Value Ref Range Status Hemoglobin A1C 09/10/2025 5.5 Final Assessment/Plan Diagnoses and all orders for this visit: Type 2 diabetes mellitus with other specified complication, without long-term current use of insulin (HCC) - POCT Glycated hemoglobin, total - FSBS log shows good control, most recent A1C is at or near goal. Continue current treatment plan as previously outlined without changes. Flu vaccine need Encounter for screening mammogram for breast cancer - Bilateral screening mammogram; Future Major depressive disorder, recurrent, in remission, unspecified Other iron deficiency anemia - CBC and differential - Iron + transferrin + TIBC; Future - Ferritin; Future - See last OV note. Has had extensive prior w/up. Suspected to be due to poor Fe absorbtion. Check labs, may need Fe infusion. RTC 2 weeks. Diastolic CHF with preserved left ventricular function, NYHA class 2 (HCC) - Echocardiogram 2D complete; Future - furosemide (Lasix) 20 MG tablet; Take 1 tablet (20 mg) by mouth in the morning and 1 tablet (20 mg) before bedtime. - Known problem, no echo in the past several years. Aortic heart murmur - Echocardiogram 2D complete; Future Osteopenia, unspecified location - alendronate (Fosamax) 70 MG tablet; Take 1 tablet (70 mg) by mouth every 7 (seven) days Take in the morning with a full glass of water, on an empty stomach, and do not take anything else by mouth or lie down for the next 30 min. Mixed hyperlipidemia - atorvastatin (Lipitor) 40 MG tablet; Take 1 tablet (40 mg) by mouth at bedtime Chronic diastolic heart failure (HCC) - metoprolol succinate XL (Toprol-XL) 25 MG 24 hr tablet; Take 1 tablet (25 mg) by mouth Daily Do not crush or chew. Other orders - Flu vaccine, high dose seasonal, PF ([id number]) (Fluzone High Dose) Follow up in about 2 weeks (around 09/24/2025) for Test/Lab Review. documented in this encounter [facility] 05-14-2025 History of Presen t illness Narrative Images from the original note were not included. HPI Results Additional comments: Lab results Med Refill Additional comments: Colchicine,zyrtec--[facility] Last edited by Tahira Hadley LPN on 05/14/2025 8:54 AM. Subjective Patient ID: Siria Petty is a 74 y.o. female who presents for Results (Lab results), Anemia, and Med Refill (Colchicine,zyrtec--[facility]). Anemia Patient presents for evaluation of anemia. Anemia was found by routine CBC. I Associated signs & symptoms: none. Pt has a history of anemia in past she was taking OTC iron supplements for this but she stopped those a few years ago Denies any symptoms of anemia Anemia Med Refill Pertinent negatives include no fatigue. Over the past 2 weeks, how often have you been bothered by any of the following problems? Little interest or pleasure in doing things: Not at all Feeling down, depressed, or hopeless: Not at all Patient Health Questionnaire-2 Score: 0 Current Outpatient Medications on File Prior to Visit Medication Sig Dispense Refill albuterol HFA (Ventolin HFA) 90 mcg/act inhaler Inhale 2 puffs every 4 (four) hours if needed for wheezing or shortness of breath 18 g 5 alendronate (Fosamax) 70 MG tablet TAKE 1 TABLET BY MOUTH WEEKLY WITH 8 OZ OF PLAIN WATER 30 MINUTES BEFORE FIRST FOOD, DRINK OR MEDS. STAY UPRIGHT FOR 30 MINS 12 tablet 3 aspirin (ASPIR) 81 MG EC tablet Take 81 mg by mouth 1 (one) time each day at the same time atorvastatin (Lipitor) 40 MG tablet TAKE 1 TABLET BY MOUTH AT BEDTIME 100 tablet 2 Blood Glucose Calibration (Enforcer eCoachinguch Ultra) liquid Blood Glucose Monitoring Suppl (ONE TOUCH ULTRA 2) w/Device kit calcium citrate 600 mg and vitamin D3 (Citrical & Minerals + Vit D) 600-200 MG-UNIT tablet Take 2 tablets by mouth Daily cetirizine (ZyrTEC) 10 MG tablet Take 1 tablet (10 mg) by mouth Daily as needed for allergies 30 tablet 11 cholecalciferol (D3-5) 5,000 Units tablet Take 5,000 Units by mouth Daily Colchicine 0.6 MG capsule Take 1 capsule by mouth 2 (two) times a day as needed (Take 1 tablet PO twice daily during gout flares) 30 capsule 2 cyanocobalamin (Vitamin B-12) 500 MCG tablet Take 500 mcg by mouth Daily fluticasone (Flonase) 50 MCG/ACT nasal spray Administer 2 sprays into each nostril in the morning. Shake gently. Before first use, prime pump. After use, clean tip and replace cap.. 16 g 11 furosemide (Lasix) 20 MG tablet TAKE 1 TABLET BY MOUTH TWICE DAILY 200 tablet 2 glucose blood ([employer] Point Ultra) test strip USE 1 STRIP TO CHECK GLUCOSE ONCE DAILY 100 each 3 ipratropium-albuterol (Duo-Neb) 0.5-2.5 mg/3 mL nebulizer solution Take 3 mL by nebulization 4 (four) times a day as needed for wheezing or shortness of breath 180 mL 3 Lancet Devices (Simple [employer] Lancing Dev) mis metFORMIN (Glucophage) 500 MG tablet TAKE 1 TABLET BY MOUTH WITH A MEAL 3 TIMES DAILY 300 tablet 2 metoprolol succinate XL (Toprol-XL) 25 MG 24 hr tablet TAKE 1 TABLET BY MOUTH ONCE DAILY 100 tablet 2 Multiple Vitamins-Minerals (MULTIVITAMIN ADULTS 50+ PO) Take by mouth nystatin-triamcinolone (Mycolog II) cream Apply topically every 12 (twelve) hours Pharmacist Choice Lancets [facility] No current facility-administered medications on file prior to visit. I have reviewed and reconciled the history and medication list with the patient today. Allergies Allergen Reactions Cat Dander Itching and Runny nose Social History Tobacco Use Smoking status: Former Current packs/day: 0.00 Average packs/day: 0.3 packs/day for 5.0 years (1.3 ttl pk-yrs) Types: Cigarettes Start date: 12/04/1995 Quit date: 12/04/2000 Years since quittin.4 Smokeless tobacco: Never Vaping Use Vaping status: Never Used Substance Use Topics Alcohol use: Never Comment: caffeine intake: 1-2 cups per day once in a while Drug use: Defer Family History Problem Relation Name Age of Onset Mental illness Mother Alzheimer's disease Mother Stroke Mother Diabetes Mother Parkinsonism Father Diabetes Sister Diabetes Other Spouse Hypertension Other Spouse Heart disease Other Spouse Past Medical History: Diagnosis Date Acquired cyst of kidney Acute diastolic heart failure (HCC) Allergic rhinitis Allergies Arthritis Asthma (HCC) Bronchitis CAD (coronary artery disease) Calculus, kidney CHF (congestive heart failure) (HCC) Chronic airway obstruction (HCC) Chronic diastolic congestive heart failure (HCC) 12/03/2024 Chronic insomnia 12/03/2024 Chronic sinusitis Chronic systolic heart failure (HCC) COPD (chronic obstructive pulmonary disease) ([facility]) Cyst of kidney, acquired Depression Depressive disorder Dermatophytosis Diabetes mellitus ([facility]) 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 Disorder of mineral metabolism, unspecified Diverticulosis Diverticulosis of colon without hemorrhage Edema Essential hypertension, benign Flank pain Right Hypercholesteremia Hypertension Insomnia with sleep apnea Menopausal and postmenopausal disorder Migraine headaches Obesity Morbid obesity Obstructive sleep apnea 12/03/2024 Osteopenia Osteoporosis Other specified diseases of pericardium ([facility]) Pneumonia Primary cardiomyopathy ([facility]) Pure hypercholesterolemia Rectocele without uterine prolapse Type 2 diabetes, diet controlled ([facility]) 12/03/2024 Vitamin D deficiency Past Surgical History: Procedure Laterality Date CARPAL TUNNEL RELEASE Right 1992 CHOLECYSTECTOMY COLONOSCOPY 10/04/2021 CT ABD AND PELVIS WOUT CONTRAST Right 2012 Rt Flank Pain CYSTOSCOPY 2013 DEXA BONE DENSITY 2014 EGD 10/04/2021 EYE EXAM 2014 GASTRIC BYPASS 2007 HERNIA REPAIR 2006 abdominal and hiatal KIDNEY STONE SURGERY 2012 kidney stone removal TONSILLECTOMY 195 TOTAL HIP ARTHROPLASTY Left 11/15/2021 TUBAL LIGATION Visit Vitals Ht 5' 2 BMI 33.29 kg/m Smoking Status Former BSA 1.9 m Review of Systems Constitutional: Negative for fatigue. Respiratory: Negative for shortness of breath. Gastrointestinal: Negative for anal bleeding and blood in stool. Objective Physical Exam Constitutional: General: She is not in acute distress. Appearance: Normal appearance. She is well-developed. HENT: Head: Normocephalic and atraumatic. Mouth/Throat: Pharynx: No posterior oropharyngeal erythema. Eyes: General: No scleral icterus. Conjunctiva/sclera: Conjunctivae normal. Cardiovascular: Rate and Rhythm: Normal rate and regular rhythm. Heart sounds: Normal heart sounds. No murmur heard. Pulmonary: Effort: Pulmonary effort is normal. No respiratory distress. Breath sounds: Normal breath sounds. No wheezing, rhonchi or rales. Skin: General: Skin is warm and dry. Neurological: General: No focal deficit present. Mental Status: She is alert and oriented to person, place, and time. Psychiatric: Mood and Affect: Mood normal. Behavior: Behavior normal. Office Visit on 04/12/2025 Component Date Value Ref Range Status CREATININE, RANDOM URINE 04/12/2025 132 20 - 275 mg/dL Final ALBUMIN, URINE 04/12/2025 4.0 See Note: mg/dL Final Comment: Reference Range: Reference Range Not established ALBUMIN/CREATININE RATIO, RANDOM U* 04/12/2025 30 (H) <30 mg/g creat Final Comment: The ADA defines abnormalities in albumin excretion as follows: Albuminuria Category Result (mg/g creatinine) Normal to Mildly increased <30 Moderately increased 30-299 Severely increased > OR = 300 The ADA recommends that at least two of three specimens collected within a 3-6 month period be abnormal before considering a patient to be within a diagnostic category. WHITE BLOOD CELL COUNT 04/12/2025 5.0 3.8 - 10.8 Thousand/uL Final RED BLOOD CELL COUNT 04/12/2025 3.44 (L) 3.80 - 5.10 Million/uL Final HEMOGLOBIN 04/12/2025 8.2 (L) 11.7 - 15.5 g/dL Final HEMATOCRIT 04/12/2025 28.6 (L) 35.0 - 45.0 % Final MCV 04/12/2025 83.1 80.0 - 100.0 fL Final MCH 04/12/2025 23.8 (L) 27.0 - 33.0 pg Final MCHC 04/12/2025 28.7 (L) 32.0 - 36.0 g/dL Final Comment: For adults, a slight decrease in the calculated MCHC value (in the range of 30 to 32 g/dL) is most likely not clinically significant; however, it should be interpreted with caution in correlation with other red cell parameters and the patient's clinical condition. RDW 04/12/2025 16.0 (H) 11.0 - 15.0 % Final PLATELET COUNT 04/12/2025 141 140 - 400 Thousand/uL Final MPV 04/12/2025 11.5 7.5 - 12.5 fL Final ABSOLUTE NEUTROPHILS 04/12/2025 2,835 1,500 - 7,800 cells/uL Final ABSOLUTE LYMPHOCYTES 04/12/2025 1,585 850 - 3,900 cells/uL Final ABSOLUTE MONOCYTES 04/12/2025 510 200 - 950 cells/uL Final ABSOLUTE EOSINOPHILS 04/12/2025 50 15 - 500 cells/uL Final ABSOLUTE BASOPHILS 04/12/2025 20 0 - 200 cells/uL Final NEUTROPHILS 04/12/2025 56.7 % Final LYMPHOCYTES 04/12/2025 31.7 % Final MONOCYTES 04/12/2025 10.2 % Final EOSINOPHILS 04/12/2025 1.0 % Final BASOPHILS 04/12/2025 0.4 % Final CHOLESTEROL, TOTAL 04/12/2025 82 <200 mg/dL Final HDL CHOLESTEROL 04/12/2025 45 (L) > OR = 50 mg/dL Final TRIGLYCERIDES 04/12/2025 71 <150 mg/dL Final LDL-CHOLESTEROL 04/12/2025 22 mg/dL (calc) Final Comment: Reference range: <100 Desirable range <100 mg/dL for primary prevention; <70 mg/dL for patients with CHD or diabetic patients with > or = 2 CHD risk factors. LDL-C is now calculated using the Shankar-Richard calculation, which is a validated novel method providing better accuracy than the Friedewald equation in the estimation of LDL-C. Shankar SS et al. AL. 2013;310(19): 7214-0925 (http://education.[employer].c om/faq/SJT787) CHOL/HDLC RATIO 04/12/2025 1.8 <5.0 (calc) Final NON HDL CHOLESTEROL 04/12/2025 37 <130 mg/dL (calc) Final Comment: For patients with diabetes plus 1 major ASCVD risk factor, treating to a non-HDL-C goal of <100 mg/dL (LDL-C of <70 mg/dL) is considered a therapeutic option. Glucose 04/12/2025 102 65 - 139 mg/dL Final Comment: Non-fasting reference interval For someone without known diabetes, a glucose value between 100 and 125 mg/dL is consistent with prediabetes and should be confirmed with a follow-up test. BUN 04/12/2025 10 7 - 25 mg/dL Final Creatinine 04/12/2025 0.64 0.60 - 1.00 mg/dL Final EGFR 04/12/2025 94 > OR = 60 mL/min/1.73m2 Final BUN/CREATININE RATIO 04/12/2025 SEE NOTE: 6 - 22 (calc) Final Comment: Not Reported: BUN and Creatinine are within reference range. Sodium 04/12/2025 140 135 - 146 mmol/L Final Potassium, Bld 04/12/2025 4.1 3.5 - 5.3 mmol/L Final Chloride 04/12/2025 104 98 - 110 mmol/L Final Carbon Dioxide 04/12/2025 24 20 - 32 mmol/L Final Calcium 04/12/2025 9.2 8.6 - 10.4 mg/dL Final PROTEIN, TOTAL 04/12/2025 6.6 6.1 - 8.1 g/dL Final ALBUMIN 04/12/2025 3.8 3.6 - 5.1 g/dL Final GLOBULIN 04/12/2025 2.8 1.9 - 3.7 g/dL (calc) Final ALBUMIN/GLOBULIN RATIO 04/12/2025 1.4 1.0 - 2.5 (calc) Final BILIRUBIN, TOTAL 04/12/2025 0.6 0.2 - 1.2 mg/dL Final ALKALINE PHOSPHATASE 04/12/2025 57 37 - 153 U/L Final AST 04/12/2025 38 (H) 10 - 35 U/L Final ALT 04/12/2025 20 6 - 29 U/L Final TSH W/REFLEX TO FT4 04/12/2025 1.81 0.40 - 4.50 mIU/L Final Assessment/Plan Diagnoses and all orders for this visit: Iron deficiency anemia due to chronic blood loss - ferrous sulfate 325 (65 Fe) MG tablet; Take 1 tablet (325 mg) by mouth in the morning. Take with meals. - Recheck lab PTNA - She has a history of this, prior GI w/up was negative, GI stated that it was due to poor Fe absorption and history of gastric bypass. They specifically recommended no further workup as it is higher risk in her. Gout of foot, unspecified cause, unspecified chronicity, unspecified laterality - Colchicine 0.6 MG capsule; Take 1 capsule by mouth 2 (two) times a day as needed (Take 1 tablet PO twice daily during gout flares) Non-seasonal allergic rhinitis, unspecified trigger - cetirizine (ZyrTEC) 10 MG tablet; Take 1 tablet (10 mg) by mouth Daily No follow-ups on file. documented in this encounter [facility] 05-10-2025 Telephone encounter Note Appt scheduled [facility] 05-10-2025 Miscellaneous Notes Appt scheduled Appt to discuss recent labs. She has an anemia. documented in this encounter [facility] 05-10-2025 Telephone encounter Note Appt to discuss recent labs. She has an anemia. [facility] 04-12-2025 History of Presen t illness Narrative Images from the original note were not included. HPI Med Refill Additional comments: Nebulizer solution--[facility] Last edited by Tahira Hadley LPN on 04/12/2025 10:10 AM. Subjective : Chief Complaint: Siria Petty is an 74 y.o. female here for an annual wellness visit. I have reviewed and reconciled the history and medication list with the patient today. Current Outpatient Medications Medication Sig Dispense Refill albuterol HFA (Ventolin HFA) 90 mcg/act inhaler Inhale 2 puffs every 4 (four) hours if needed for wheezing or shortness of breath 18 g 5 alendronate (Fosamax) 70 MG tablet TAKE 1 TABLET BY MOUTH WEEKLY WITH 8 OZ OF PLAIN WATER 30 MINUTES BEFORE FIRST FOOD, DRINK OR MEDS. STAY UPRIGHT FOR 30 MINS 12 tablet 3 aspirin (ASPIR) 81 MG EC tablet Take 81 mg by mouth 1 (one) time each day at the same time atorvastatin (Lipitor) 40 MG tablet TAKE 1 TABLET BY MOUTH AT BEDTIME 100 tablet 2 Blood Glucose Calibration (OneTouch Ultra) liquid Blood Glucose Monitoring Suppl (ONE TOUCH ULTRA 2) w/Device kit calcium citrate 600 mg and vitamin D3 (Citrical & Minerals + Vit D) 600-200 MG-UNIT tablet Take 2 tablets by mouth Daily cetirizine (ZyrTEC) 10 MG tablet Take 1 tablet (10 mg) by mouth Daily as needed for allergies 30 tablet 11 cholecalciferol (D3-5) 5,000 Units tablet Take 5,000 Units by mouth Daily cyanocobalamin (Vitamin B-12) 500 MCG tablet Take 500 mcg by mouth Daily fluticasone (Flonase) 50 MCG/ACT nasal spray Administer 2 sprays into each nostril in the morning. Shake gently. Before first use, prime pump. After use, clean tip and replace cap.. 16 g 11 furosemide (Lasix) 20 MG tablet TAKE 1 TABLET BY MOUTH TWICE DAILY 200 tablet 2 glucose blood (OneTouch Ultra) test strip USE 1 STRIP TO CHECK GLUCOSE ONCE DAILY 100 each 3 Lancet Devices ([employer] Lancing Dev) misc metFORMIN (Glucophage) 500 MG tablet TAKE 1 TABLET BY MOUTH WITH A MEAL 3 TIMES DAILY 300 tablet 2 metoprolol succinate XL (Toprol-XL) 25 MG 24 hr tablet TAKE 1 TABLET BY MOUTH ONCE DAILY 100 tablet 2 Multiple Vitamins-Minerals (MULTIVITAMIN ADULTS 50+ PO) Take by mouth nystatin-triamcinolone (Mycolog II) cream Apply topically every 12 (twelve) hours Pharmacist Choice Lancets misc ipratropium-albuterol (Duo-Neb) 0.5-2.5 mg/3 mL nebulizer solution Take 3 mL by nebulization 4 (four) times a day as needed for wheezing or shortness of breath 180 mL 3 No current facility-administered medications for this visit. Review of Systems List of current healthcare providers: Patient Care Team: Tyshawn Hickman MD as PCP - General (Internal Medicine) Tyshawn Hickman MD as PCP - Medical [place] LIZETTE Lo LPN Medicare Annual Visit Over the past 2 weeks, how often have you been bothered by any of the following problems? Little interest or pleasure in doing things: Not at all Feeling down, depressed, or hopeless: Not at all Patient Health Questionnaire-2 Score: 0 Doyle Fall Risk History of Falling, Immediate or Within 3 Months: No Secondary Diagnosis: No Ambulatory Aid: Walks without aid/bedrest/nurse assist Health Risk Assessment Form Do you need help eating, bathing, using the toilet, dressing, or getting around your home?: No Can you prepare your own meals?: Yes Can you do your own housework without help?: Yes Can you shop for groceries or clothes without help?: Yes Do you exercise for about 20 minutes 3 or more days a week?: No How confident are you that you can control and manage most of your health problems?: Very confident Can you mange your money, credit cards and accounts, pay bills and taxes?: Yes Cognitive Screening Three Word Registration: Apple, Watch, Jazzy Clock Drawing: Normal Clock - 2 Three Word Recall: 2/3 words correct - 2 Total Score (0-5 Points): 4 Pain Assessment Pain Score: 5 - Moderate pain Advance Care Planning Do you have a living will?: No Do you have a medical power of finance executive?: No Objective : BP 130/66 Pulse 77 Ht 5' 2 Wt 182 lb SpO2 94% BMI 33.29 kg/m No results found. Physical Exam Constitutional: General: She is not in acute distress. Appearance: Normal appearance. She is well-developed. HENT: Head: Normocephalic and atraumatic. Mouth/Throat: Pharynx: No posterior oropharyngeal erythema. Eyes: General: No scleral icterus. Conjunctiva/sclera: Conjunctivae normal. Cardiovascular: Rate and Rhythm: Normal rate and regular rhythm. Heart sounds: Normal heart sounds. No murmur heard. Pulmonary: Effort: Pulmonary effort is normal. No respiratory distress. Breath sounds: Normal breath sounds. No wheezing, rhonchi or rales. Skin: General: Skin is warm and dry. Neurological: General: No focal deficit present. Mental Status: She is alert and oriented to person, place, and time. Psychiatric: Mood and Affect: Mood normal. Behavior: Behavior normal. Assessment/Plan : The following health maintenance schedule was reviewed with the patient and provided in printed form in the after visit summary: Health Maintenance Topic Date Due Pneumococcal Vaccine: 65+ Years (3 of 3 - PCV20 or PCV21) 10/09/2023 Diabetes: Retinopathy Screening 10/10/2023 Mammogram 03/20/2025 Diabetes: Hemoglobin A1C 04/10/2025 Diabetes: Urine Protein Screening 06/10/2025 Colorectal Cancer Screening 10/04/2031 Influenza Vaccine Completed Advance Care Planning Patient agreed to discuss advance care planning at today's wellness visit. We discussed that an advance directive is a legal document that only goes into effect if the patient is incapacitated and unable to speak for himself or herself. This would help healthcare providers to ensure that the patient gets the care that he or she wishes to receive. The goal is to provide a patient with the best possible quality of life. Encouraged patient to obtain a living will and durable power of finance executive for healthcare. We discussed telling reid people about their advance directives such as close family members, and requested a copy to scan into the patient's EHR. An advance directive packet was offered to the patient. Assessment/Plan Diagnoses and all orders for this visit: Wellness examination ACP (advance care planning) Chronic obstructive pulmonary disease, unspecified COPD type (CMS/HCC) - ipratropium-albuterol (Duo-Neb) 0.5-2.5 mg/3 mL nebulizer solution; Take 3 mL by nebulization 4 (four) times a day as needed for wheezing or shortness of breath Unspecified cirrhosis of liver (CMS/HCC) Panlobular emphysema (CMS/HCC) Benign essential hypertension (CMS/HCC) Diastolic CHF with preserved left ventricular function, NYHA class 2 (CMS/HCC) - Comprehensive metabolic panel; Future - CBC and differential Nonalcoholic fatty liver disease Acquired cystic kidney disease - Comprehensive metabolic panel; Future - CBC and differential Type 2 diabetes mellitus with other specified complication, unspecified whether long wall 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 insulin use (CMS/HCC) - Microalbumin / creatinine urine ratio - TSH W/REFLEX TO FT4; Future Mixed hyperlipidemia (CMS/HCC) - Lipid panel; Future Obesity (BMI 30-39.9) Routine general medical examination at health care facility No follow-ups on file. Orders Placed This Encounter Procedures Microalbumin / creatinine urine ratio Print requisition?: No Lipid panel Standing Status: Future Number of Occurrences: 1 Expected Date: 04/12/2025 Expiration Date: 04/12/2026 Comprehensive metabolic panel Standing Status: Future Number of Occurrences: 1 Expected Date: 04/12/2025 Expiration Date: 04/12/2026 Print requisition?: No CBC and differential Print requisition?: No TSH W/REFLEX TO FT4 Standing Status: Future Number of Occurrences: 1 Expected Date: 04/12/2025 Expiration Date: 04/12/2026 Print requisition?: No Electronically signed by Tyshawn Hickman MD on April 12, 2025 documented in this encounter [facility] 03-31-2025 History of Presen t illness Narrative Images from the original note were not included. Siria Petty presents today for follow up on cough. She was last seen a few months ago. She did undergo a CT scan of her chest prior to today's office visit. She states that her cough has improved significantly since her last office visit. She does continue with a rare cough, but not very frequently. She does currently use different inhaled medications. She does have some confusion in regards to these medications. She is currently using Trelegy at night. She states she does use Symbicort during the day. She does also use DuoNebs as needed during the day. She does use Trelegy despite the fact that this does choke her when she uses it. She does attribute this to the dry powder. She denies any current complaints of chest pain, palpitations, fevers, chills, sweats, or recent unintentional weight changes. She denies any other complaints this time. Allergies: Allergies Allergen Reactions Cat Dander Itching and Runny nose Medications: Current Outpatient Medications: alendronate (Fosamax) 70 MG tablet, TAKE 1 TABLET BY MOUTH WEEKLY WITH 8 OZ OF PLAIN WATER 30 MINUTES BEFORE FIRST FOOD, DRINK OR MEDS. STAY UPRIGHT FOR 30 MINS, Disp: 12 tablet, Rfl: 3 aspirin (ASPIR) 81 MG EC tablet, Take 81 mg by mouth 1 (one) time each day at the same time, Disp: , Rfl: atorvastatin (Lipitor) 40 MG tablet, TAKE 1 TABLET BY MOUTH AT BEDTIME, Disp: 100 tablet, Rfl: 2 Blood Glucose Calibration (Adometry By GoogleTouch Ultra) liquid, , Disp: , Rfl: Blood Glucose Monitoring Suppl (ONE TOUCH ULTRA 2) w/Device kit, , Disp: , Rfl: calcium citrate 600 mg and vitamin D3 (Citrical & Minerals + Vit D) 600-200 MG-UNIT tablet, Take 2 tablets by mouth Daily, Disp: , Rfl: cholecalciferol (D3-5) 5,000 Units tablet, Take 5,000 Units by mouth Daily, Disp: , Rfl: cyanocobalamin (Vitamin B-12) 500 MCG tablet, Take 500 mcg by mouth Daily, Disp: , Rfl: furosemide (Lasix) 20 MG tablet, TAKE 1 TABLET BY MOUTH TWICE DAILY, Disp: 200 tablet, Rfl: 2 glucose blood (Adometry By GoogleTouch Ultra) test strip, USE 1 STRIP TO CHECK GLUCOSE ONCE DAILY, Disp: 100 each, Rfl: 3 ipratropium-albuterol (Duo-Neb) 0.5-2.5 mg/3 mL nebulizer solution, Take 3 mL by nebulization 4 (four) times a day as needed for wheezing or shortness of breath, Disp: 180 mL, Rfl: 3 Lancet Devices ([employer] Lancing Dev) [facility] , Disp: , Rfl: metFORMIN (Glucophage) 500 MG tablet, TAKE 1 TABLET BY MOUTH WITH A MEAL 3 TIMES DAILY, Disp: 300 tablet, Rfl: 2 metoprolol succinate XL (Toprol-XL) 25 MG 24 hr tablet, TAKE 1 TABLET BY MOUTH ONCE DAILY, Disp: 100 tablet, Rfl: 2 Multiple Vitamins-Minerals (MULTIVITAMIN ADULTS 50+ PO), Take by mouth, Disp: , Rfl: nystatin-triamcinolone (Mycolog II) cream, Apply topically every 12 (twelve) hours, Disp: , Rfl: Pharmacist Choice Lancets [facility], , Disp: , Rfl: albuterol (2.5 MG/3ML) 0.083% nebulizer solution, Take 3 mL (2.5 mg) by nebulization every 6 (six) hours if needed for wheezing or shortness of breath, Disp: 75 mL, Rfl: 3 albuterol HFA (Ventolin HFA) 90 mcg/act inhaler, Inhale 2 puffs every 4 (four) hours if needed for wheezing or shortness of breath, Disp: 18 g, Rfl: 5 cetirizine (ZyrTEC) 10 MG tablet, Take 1 tablet (10 mg) by mouth Daily as needed for allergies, Disp: 30 tablet, Rfl: 11 fluticasone (Flonase) 50 MCG/ACT nasal spray, Administer 2 sprays into each nostril in the morning. Shake gently. Before first use, prime pump. After use, clean tip and replace cap.., Disp: 16 g, Rfl: 11 Past Medical History: Past Medical History: Diagnosis Date Acquired cyst of kidney Acute diastolic heart failure ([facility]) Allergic rhinitis Allergies Arthritis Asthma Bronchitis CAD (coronary artery disease) ([facility]) Calculus, kidney CHF (congestive heart failure) ([facility] Chronic airway obstruction ([facility]) Chronic diastolic congestive heart failure ([facility]) 12/03/2024 Chronic insomnia 12/03/2024 Chronic sinusitis Chronic systolic heart failure ([facility]) COPD (chronic obstructive pulmonary disease) ([facility]) Cyst of kidney, acquired Depression ([facility]) Depressive disorder ([facility]) Dermatophytosis Diabetes mellitus ([facility]) 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 Disorder of mineral metabolism, unspecified Diverticulosis Diverticulosis of colon without hemorrhage Edema Essential hypertension, benign ([facility]) Flank pain Right Hypercholesteremia ([facility]) Hypertension ([facility]) Insomnia with sleep apnea Menopausal and postmenopausal disorder Migraine headaches Obesity Morbid obesity Obstructive sleep apnea 12/03/2024 Osteopenia Osteoporosis ([facility]) Other specified diseases of pericardium Pneumonia Primary cardiomyopathy ([facility]) Pure hypercholesterolemia ([facility]) Rectocele without uterine prolapse Type 2 diabetes, diet controlled ([facility]) 12/03/2024 Vitamin D deficiency Social History: Social History Tobacco Use Smoking status: Former Current packs/day: 0.00 Average packs/day: 0.3 packs/day for 5.0 years (1.3 ttl pk-yrs) Types: Cigarettes Start date: 12/04/1995 Quit date: 12/04/2000 Years since quittin.3 Smokeless tobacco: Never Substance Use Topics Alcohol use: Never Comment: caffeine intake: 1-2 cups per day once in a while Vitals: Pulse 76 Ht 5' 2 Wt 186 lb 6.4 oz SpO2 94% BMI 34.09 kg/m Exam: Heart: regular rate Lungs: clear to auscultation bilaterally, no wheezes/rales/rhonchi, no resp distress Extremities: no edema noted, no visible rashes Neuro: alert, oriented x3 Imaging Reviewed: Images and report of CT chest from March 2025 reviewed - - stable pleural thickening and fibronodular parenchymal changes of the adjacent lung parenchyma, no new findings, stable when compared to September 2024 Assessment/Plan: Diagnoses and all orders for this visit: Moderate persistent asthma without complication ([facility]) - albuterol HFA (Ventolin HFA) 90 mcg/act inhaler; Inhale 2 puffs every 4 (four) hours if needed for wheezing or shortness of breath Asthma -- she did have significant confusion in regards to her inhaled medications. We did spend a significant amount of time at today's office visit going over which medicine she should be taking. Prior to our conversation she was using Trelegy, Symbicort, DuoNebs, and albuterol. We discussed that as she is using Trelegy she does not need to use Symbicort. I was able to show her images of each of the inhalers to ensure that she was referring to the proper medication. She will continue using Trelegy nightly. However she does state that this does cause her to have a coughing fit because of the dry powder. We discussed the possibility switching to a different medication that is not a dry powder, however she did not wish to pursue that. She will stop using Symbicort. She will continue with albuterol or DuoNebs as her rescue. At this time we discussed following here on a 4-6 month basis. However the patient stated that she would like to follow on as needed basis only. If she has any worsening of symptoms then she can come back to the office at any point. We also discussed that her CT scan does demonstrate stable changes when compared to September 2024. Follow up if symptoms worsen or fail to improve. Shanika Merida DO documented in this encounter [facility] 01-11-2025 History of Presen t illness Narrative Images from the original note were not included. Subjective Patient ID: Siria Petty is a 74 y.o. female who presents for a F/U for DM and Hypertension. Siria presents today for a 4 month F/U for DM and Hypertension. Last A1c was 10-24 and the results were 6.0 Current Outpatient Medications on File Prior to Visit Medication Sig Dispense Refill albuterol (2.5 MG/3ML) 0.083% nebulizer solution Take 3 mL (2.5 mg) by nebulization every 6 (six) hours if needed for wheezing or shortness of breath 75 mL 3 alendronate (Fosamax) 70 MG tablet TAKE 1 TABLET BY MOUTH WEEKLY WITH 8 OZ OF PLAIN WATER 30 MINUTES BEFORE FIRST FOOD, DRINK OR MEDS. STAY UPRIGHT FOR 30 MINS 12 tablet 3 aspirin (ASPIR) 81 MG EC tablet Take 81 mg by mouth 1 (one) time each day at the same time. atorvastatin (Lipitor) 40 MG tablet TAKE 1 TABLET BY MOUTH AT BEDTIME 100 tablet 2 Blood Glucose Calibration (Adometry By GoogleTouch Ultra) liquid Blood Glucose Monitoring Suppl (ONE TOUCH ULTRA 2) w/Device kit calcium citrate 600 mg and vitamin D3 (Citrical & Minerals + Vit D) 600-200 MG-UNIT tablet Take 2 tablets by mouth in the morning. cetirizine (ZyrTEC) 10 MG tablet Take 1 tablet (10 mg) by mouth Daily as needed for allergies 30 tablet 11 cholecalciferol (D3-5) 5,000 Units tablet Take 5,000 Units by mouth in the morning. cyanocobalamin (Vitamin B-12) 500 MCG tablet Take 500 mcg by mouth Daily fluticasone (Flonase) 50 MCG/ACT nasal spray Administer 2 sprays into each nostril in the morning. Shake gently. Before first use, prime pump. After use, clean tip and replace cap.. 16 g 11 furosemide (Lasix) 20 MG tablet TAKE 1 TABLET BY MOUTH TWICE DAILY 200 tablet 2 glucose blood (En[employer]cer eCoachinguch Ultra) test strip USE 1 STRIP TO CHECK GLUCOSE ONCE DAILY 100 each 3 ipratropium-albuterol (Duo-Neb) 0.5-2.5 mg/3 mL nebulizer solution Take 3 mL by nebulization 4 (four) times a day as needed for wheezing or shortness of breath 180 mL 3 Lancet Devices ([employer] Dev) [facility] metFORMIN (Glucophage) 500 MG tablet TAKE 1 TABLET BY MOUTH WITH A MEAL 3 TIMES DAILY 300 tablet 2 metoprolol succinate XL (Toprol-XL) 25 MG 24 hr tablet TAKE 1 TABLET BY MOUTH ONCE DAILY 100 tablet 2 Multiple Vitamins-Minerals (MULTIVITAMIN ADULTS 50+ PO) Take by mouth nystatin-triamcinolone (Mycolog II) cream Apply topically every 12 (twelve) hours. Pharmacist Choice Lancets [facility] No current facility-administered medications on file prior to visit. I have reviewed and reconciled the history and medication list with the patient today. Allergies Allergen Reactions Cat Dander Itching and Runny nose Social History Tobacco Use Smoking status: Former Current packs/day: 0.00 Average packs/day: 0.3 packs/day for 5.0 years (1.3 ttl pk-yrs) Types: Cigarettes Start date: 12/04/1995 Quit date: 12/04/2000 Years since quittin.1 Smokeless tobacco: Never Vaping Use Vaping status: Never Used Substance Use Topics Alcohol use: Never Comment: caffeine intake: 1-2 cups per day once in a while Drug use: Defer Family History Problem Relation Name Age of Onset Mental illness Mother Alzheimer's disease Mother Stroke Mother Diabetes Mother Parkinsonism Father Diabetes Sister Diabetes Other Spouse Hypertension Other Spouse Heart disease Other Spouse Past Medical History: Diagnosis Date Acquired cyst of kidney Acute diastolic heart failure ([facility]) Allergic rhinitis Allergies Arthritis Asthma ([facility]) Bronchitis CAD (coronary artery disease) ([facility]) Calculus, kidney CHF (congestive heart failure) ([facility]) Chronic airway obstruction ([facility]) Chronic diastolic congestive heart failure ([facility]) 12/03/2024 Chronic insomnia 12/03/2024 Chronic sinusitis Chronic systolic heart failure ([facility]) COPD (chronic obstructive pulmonary disease) ([facility]) Cyst of kidney, acquired Depression ([facility]) Depressive disorder ([facility]) Dermatophytosis Diabetes mellitus ([facility]) 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 Disorder of mineral metabolism, unspecified Diverticulosis Diverticulosis of colon without hemorrhage Edema Essential hypertension, benign ([facility]) Flank pain Right Hypercholesteremia ([facility]) Hypertension ([facility]) Insomnia with sleep apnea Menopausal and postmenopausal disorder Migraine ([facility]) headaches Obesity Morbid obesity Obstructive sleep apnea 12/03/2024 Osteopenia Osteoporosis ([facility]) Other specified diseases of pericardium Pneumonia Primary cardiomyopathy ([facility]) Pure hypercholesterolemia ([facility]) Rectocele without uterine prolapse Type 2 diabetes, diet controlled ([facility]) 12/03/2024 Vitamin D deficiency Past Surgical History: Procedure Laterality Date CARPAL TUNNEL RELEASE Right 1993 CHOLECYSTECTOMY COLONOSCOPY 10/04/2021 CT ABD AND PELVIS WOUT CONTRAST Right 2013 Rt Flank Pain CYSTOSCOPY 2012 DEXA BONE DENSITY 2014 EGD 10/04/2021 EYE EXAM 2014 GASTRIC BYPASS 2007 HERNIA REPAIR 2006 abdominal and hiatal KIDNEY STONE SURGERY 2013 kidney stone removal TONSILLECTOMY 1956 TOTAL HIP ARTHROPLASTY Left 11/15/2021 TUBAL LIGATION Visit Vitals BP 136/64 Pulse 69 Resp 17 Ht 5' 2 Wt 183 lb 12.8 oz SpO2 95% BMI 33.62 kg/m Smoking Status Former BSA 1.91 m Review of Systems Objective Physical Exam Constitutional: General: She is not in acute distress. Appearance: Normal appearance. She is well-developed. HENT: Head: Normocephalic and atraumatic. Mouth/Throat: Pharynx: No posterior oropharyngeal erythema. Eyes: General: No scleral icterus. Conjunctiva/sclera: Conjunctivae normal. Cardiovascular: Rate and Rhythm: Normal rate and regular rhythm. Heart sounds: Normal heart sounds. No murmur heard. Pulmonary: Effort: Pulmonary effort is normal. No respiratory distress. Breath sounds: Normal breath sounds. No wheezing, rhonchi or rales. Skin: General: Skin is warm and dry. Neurological: General: No focal deficit present. Mental Status: She is alert and oriented to person, place, and time. Psychiatric: Mood and Affect: Mood normal. Behavior: Behavior normal. Office Visit on 01/11/2025 Component Date Value Ref Range Status Hemoglobin A1C 01/11/2025 5.4 Final Assessment/Plan Diagnoses and all orders for this visit: Type 2 diabetes mellitus with other specified complication, without long-term current use of insulin ([facility]) - POCT glycosylated hemoglobin (Hb A1C) docked device - FSBS log shows good control, most recent A1C is at or near goal. Continue current treatment plan as previously outlined without changes. Moderate persistent asthma without complication ([facility]) - Uzuvmefkbmc-Bptrhtppo-Tkedra (Trelegy Ellipta) 100-62.5-25 MCG/ACT aerosol powder ; Inhale 1 Inhalation Daily Follow up in about 3 months (around 04/10/2025) for Routine F/U. documented in this encounter [facility] 12-09-2024 History of Presen t illness Narrative Images from the original note were not included. Siria Petty presents today for evaluation in regards to complaints of a cough. The patient states her cough has been present for 5-6 months. However upon review of the notes he does appear she was evaluated by ENT nearly 1 year ago for similar complaints as well. She states over last few weeks or so she has noticed some slight improvement of her cough. She was placed on Trelegy by her primary care provider, however has stopped this medication as she does not feel she tolerated the dry powder component. She is currently using DuoNebs 4 times daily. She states her cough is generally productive in nature. She denies any complaints of fevers, chills, or sweats. She denies any complaints of chest pain or chest pressure. She denies any sinus drainage. She denies any symptoms of reflux such as burping or belching. She is a former smoker quitting in 1999. She did have PFTs and a CT scan of her chest performed prior to today's office visit. Allergies Allergen Reactions Cat Dander Itching and Runny nose Current Outpatient Medications Medication Sig Dispense Refill alendronate (Fosamax) 70 MG tablet TAKE 1 TABLET BY MOUTH WEEKLY WITH 8 OZ OF PLAIN WATER 30 MINUTES BEFORE FIRST FOOD, DRINK OR MEDS. STAY UPRIGHT FOR 30 MINS 12 tablet 3 aspirin (ASPIR) 81 MG EC tablet Take 81 mg by mouth 1 (one) time each day at the same time. atorvastatin (Lipitor) 40 MG tablet TAKE 1 TABLET BY MOUTH AT BEDTIME 100 tablet 2 Blood Glucose Calibration (OneTouch Ultra) liquid Blood Glucose Monitoring Suppl (ONE TOUCH ULTRA 2) w/Device kit calcium citrate 600 mg and vitamin D3 (Citrical & Minerals + Vit D) 600-200 MG-UNIT tablet Take 2 tablets by mouth in the morning. cetirizine (ZyrTEC) 10 MG tablet Take 1 tablet (10 mg) by mouth Daily as needed for allergies 30 tablet 11 cholecalciferol (D3-5) 5,000 Units tablet Take 5,000 Units by mouth in the morning. cyanocobalamin (Vitamin B-12) 500 MCG tablet Take 500 mcg by mouth Daily furosemide (Lasix) 20 MG tablet TAKE 1 TABLET BY MOUTH TWICE DAILY 200 tablet 2 glucose blood (OneTouch Ultra) test strip USE 1 STRIP TO CHECK GLUCOSE ONCE DAILY 100 each 3 Lancet Devices (Simple Diagn[employer] Lancing Dev) misc metFORMIN (Glucophage) 500 MG tablet TAKE 1 TABLET BY MOUTH WITH A MEAL 3 TIMES DAILY 300 tablet 2 metoprolol succinate XL (Toprol-XL) 25 MG 24 hr tablet TAKE 1 TABLET BY MOUTH ONCE DAILY 100 tablet 2 Multiple Vitamins-Minerals (MULTIVITAMIN ADULTS 50+ PO) Take by mouth nystatin-triamcinolone (Mycolog II) cream Apply topically every 12 (twelve) hours. Pharmacist Choice Lancets misc albuterol (2.5 MG/3ML) 0.083% nebulizer solution Take 3 mL (2.5 mg) by nebulization every 6 (six) hours if needed for wheezing or shortness of breath 75 mL 3 fluticasone (Flonase) 50 MCG/ACT nasal spray Administer 2 sprays into each nostril in the morning. Shake gently. Before first use, prime pump. After use, clean tip and replace cap.. 16 g 11 ipratropium-albuterol (Duo-Neb) 0.5-2.5 mg/3 mL nebulizer solution Take 3 mL by nebulization 4 (four) times a day as needed for wheezing or shortness of breath. 180 mL 11 No current facility-administered medications for this visit. Past Medical History: Diagnosis Date Acquired cyst of kidney Acute diastolic heart failure ([facility]) Allergic rhinitis Allergies Arthritis Asthma ([facility]) Bronchitis CAD (coronary artery disease) ([facility]) Calculus, kidney CHF (congestive heart failure) ([facility]) Chronic airway obstruction ([facility]) Chronic diastolic congestive heart failure ([facility]) 12/03/2024 Chronic insomnia 12/03/2024 Chronic sinusitis Chronic systolic heart failure ([facility]) COPD (chronic obstructive pulmonary disease) ([facility]) Cyst of kidney, acquired Depression ([facility]) Depressive disorder ([facility]) Dermatophytosis Diabetes mellitus ([facility]) 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 Disorder of mineral metabolism, unspecified Diverticulosis Diverticulosis of colon without hemorrhage Edema Essential hypertension, benign ([facility]/HCC) Flank pain Right Hypercholesteremia ([facility]/HCC) Hypertension ([facility]) Insomnia with sleep apnea Menopausal and postmenopausal disorder Migraine ([facility]) headaches Obesity Morbid obesity Obstructive sleep apnea 12/03/2024 Osteopenia Osteoporosis ([facility]) Other specified diseases of pericardium Pneumonia Primary cardiomyopathy ([facility]) Pure hypercholesterolemia ([facility]) Rectocele without uterine prolapse Type 2 diabetes, diet controlled ([facility]) 12/03/2024 Vitamin D deficiency Past Surgical History: Procedure Laterality Date CARPAL TUNNEL RELEASE Right 1992 CHOLECYSTECTOMY COLONOSCOPY 10/04/2021 CT ABD AND PELVIS WOUT CONTRAST Right 2013 Rt Flank Pain CYSTOSCOPY 2012 DEXA BONE DENSITY 2014 EGD 10/04/2021 EYE EXAM 2014 GASTRIC BYPASS 2007 HERNIA REPAIR 2006 abdominal and hiatal KIDNEY STONE SURGERY 2013 kidney stone removal TONSILLECTOMY 1956 TOTAL HIP ARTHROPLASTY Left 11/15/2021 TUBAL LIGATION Family History Problem Relation Name Age of Onset Mental illness Mother Alzheimer's disease Mother Stroke Mother Diabetes Mother Parkinsonism Father Diabetes Sister Diabetes Other Spouse Hypertension Other Spouse Heart disease Other Spouse Social History Tobacco Use Smoking status: Former Current packs/day: 0.00 Average packs/day: 0.3 packs/day for 5.0 years (1.3 ttl pk-yrs) Types: Cigarettes Start date: 12/04/1995 Quit date: 12/04/2000 Years since quittin.0 Smokeless tobacco: Never Substance Use Topics Alcohol use: Never Comment: caffeine intake: 1-2 cups per day once in a while BP 118/66 (BP Location: Left arm, Patient Position: Sitting) Pulse 83 Ht 5' 2 Wt 190 lb 12.8 oz SpO2 97% BMI 34.90 kg/m Exam: Heart: regular rate Lungs: clear to auscultation bilaterally, no wheezes/rales/rhonchi, no resp distress Extremities: no edema noted, no visible rashes Neuro: alert, oriented x3 Imaging Reviewed: Images and report of CT chest from September 2024 reviewed- -right upper lobe subsegmental atelectasis versus scarring, calcification suggest granulomatous changes, scattered nonspecific subcentimeter middle mediastinal lymph node, coronary artery disease, splenic granulomata PFT's from September 2024 reviewed -- FVC 2.13 L ( 82 %), FEV1 1.54 L ( 77 %), ratio 72 %, no significant bronchodilator response, mid flows 61 %, no hyperinflation present, air trapping, normal DLCO Assessment/Plan: cough -- she does complain of a chronic cough at today's office visit. She states this has been present for 5-6 months, however upon review of the charting it does appear this has been present for a year or more. She has been tried on Trelegy by primary care provider. However she was intolerant of the dry powder medication. She does continue with DuoNebs 3-4 times per day. She states that her cough has improved slightly over last several weeks to a month. She has also been evaluated by ENT in the past and felt that she did not have a ENT reason for her complaints of a chronic cough. At this time we discussed even though she does not have overt symptoms consistent with reflux this can be contributing to a chronic cough. She had Pepcid on her medication list, but she states she is not taking this medication. At this time we discussed using a PPI. It was recommended that she use something along the line of Protonix or Nexium. She was explained that these can be obtained [id number]. She will reach out to the pharmacy for assistance with obtaining these medications. She will begin using these once daily. She will use these for at least 6-8 weeks. She will follow here in 2-3 months' time to reassess her symptoms with use of the PPI to treat silent reflux. The patient understands the plan and is agreeable. Follow up in about 3 months (around 03/09/2025) for cough, CT chest. Shanika Merida DO documented in this encounter [facility] 09-28-2024 History of Presen t illness Narrative Images from the original note were not included. Subjective Patient ID: Siria Petty is a 74 y.o. female who presents for a follow up Siria is in today for a follow up on her cough and to go over her PFT and chest CT results. States the cough is still present and wearing her out she states. Current Outpatient Medications on File Prior to Visit Medication Sig Dispense Refill alendronate (Fosamax) 70 MG tablet TAKE 1 TABLET BY MOUTH WEEKLY WITH 8 OZ OF PLAIN WATER 30 MINUTES BEFORE FIRST FOOD, DRINK OR MEDS. STAY UPRIGHT FOR 30 MINS 12 tablet 3 aspirin (ASPIR) 81 MG EC tablet Take 81 mg by mouth 1 (one) time each day at the same time. atorvastatin (Lipitor) 40 MG tablet TAKE 1 TABLET BY MOUTH AT BEDTIME 100 tablet 2 Blood Glucose Calibration (Adometry By GoogleTouch Ultra) liquid Blood Glucose Monitoring Suppl (ONE TOUCH ULTRA 2) w/Device kit calcium citrate 600 mg and vitamin D3 (Citrical & Minerals + Vit D) 600-200 MG-UNIT tablet Take 2 tablets by mouth in the morning. cetirizine (ZyrTEC) 10 MG tablet Take 1 tablet (10 mg) by mouth Daily as needed for allergies 30 tablet 11 cholecalciferol (D3-5) 5,000 Units tablet Take 5,000 Units by mouth in the morning. Colchicine 0.6 MG capsule Take 1 capsule by mouth 2 (two) times a day as needed (Take 1 tablet PO twice daily during gout flares). fluticasone (Flonase) 50 MCG/ACT nasal spray Administer 2 sprays into each nostril in the morning. Shake gently. Before first use, prime pump. After use, clean tip and replace cap.. 16 g 11 furosemide (Lasix) 20 MG tablet TAKE 1 TABLET BY MOUTH TWICE DAILY 200 tablet 2 glucose blood (The Point Ultra) test strip USE 1 STRIP TO CHECK GLUCOSE ONCE DAILY 100 each 3 metoprolol succinate XL (Toprol-XL) 25 MG 24 hr tablet TAKE 1 TABLET BY MOUTH ONCE DAILY 100 tablet 2 multivitamin-children's (EQ Complete) 18 MG chewable tablet Chew 1 tablet 1 (one) time each day at the same time. nystatin-triamcinolone (Mycolog II) cream Apply topically every 12 (twelve) hours. Pharmacist Choice Lancets misc albuterol (2.5 MG/3ML) 0.083% nebulizer solution Take 3 mL (2.5 mg) by nebulization every 6 (six) hours if needed for wheezing or shortness of breath 75 mL 3 famotidine (Pepcid) 20 MG tablet Take 1 tablet (20 mg) by mouth in the morning and 1 tablet (20 mg) before bedtime. 180 tablet 0 ipratropium-albuterol (Duo-Neb) 0.5-2.5 mg/3 mL nebulizer solution Take 3 mL by nebulization 4 (four) times a day as needed for wheezing or shortness of breath. 180 mL 11 metFORMIN (Glucophage) 500 MG tablet TAKE 1 TABLET BY MOUTH WITH A MEAL 3 TIMES DAILY 300 tablet 2 No current facility-administered medications on file prior to visit. I have reviewed and reconciled the history and medication list with the patient today. Allergies Allergen Reactions Cat Hair Extract Unknown Social History Tobacco Use Smoking status: Former Current packs/day: 0.00 Average packs/day: 0.3 packs/day for 5.0 years (1.3 ttl pk-yrs) Types: Cigarettes Start date: 12/04/1995 Quit date: 12/04/2000 Years since quittin.8 Smokeless tobacco: Never Substance Use Topics Alcohol use: Never Comment: caffeine intake: 1-2 cups per day once in a while Drug use: Defer Family History Problem Relation Name Age of Onset Mental illness Mother Alzheimer's disease Mother Parkinsonism Father Diabetes Other Spouse Hypertension Other Spouse Heart disease Other Spouse Past Medical History: Diagnosis Date Acquired cyst of kidney Acute diastolic heart failure (CMS/[facility]) Allergic rhinitis Allergies Arthritis Asthma (CMS/HCC) Bronchitis CAD (coronary artery disease) (CMS/HCC) Calculus, kidney CHF (congestive heart failure) (CMS/HCC) Chronic airway obstruction (CMS/HCC) Chronic sinusitis Chronic systolic heart failure (CMS/HCC) COPD (chronic obstructive pulmonary disease) (CMS/HCC) Cyst of kidney, acquired Depression (CMS/HCC) Depressive disorder (CMS/HCC) Dermatophytosis Diabetes mellitus (CMS/HCC) 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 Disorder of mineral metabolism, unspecified Diverticulosis Diverticulosis of colon without hemorrhage Edema Essential hypertension, benign (CMS/HCC) Flank pain Right Hypercholesteremia (CMS/HCC) Hypertension (CMS/HCC) Insomnia with sleep apnea Menopausal and postmenopausal disorder Migraine (CMS/HCC) headaches Obesity Morbid obesity Osteopenia Osteoporosis (CMS/HCC) Other specified diseases of pericardium Pneumonia Primary cardiomyopathy (CMS/HCC) Pure hypercholesterolemia (CMS/HCC) Rectocele without uterine prolapse Vitamin D deficiency Past Surgical History: Procedure Laterality Date CARPAL TUNNEL RELEASE Right 1993 CHOLECYSTECTOMY COLONOSCOPY 10/04/2021 CT ABD AND PELVIS WOUT CONTRAST Right 2013 Rt Flank Pain CYSTOSCOPY 2013 DEXA BONE DENSITY 2014 EGD 10/04/2021 EYE EXAM 2014 GASTRIC BYPASS 2007 HERNIA REPAIR 2006 abdominal and hiatal KIDNEY STONE SURGERY 2013 kidney stone removal TONSILLECTOMY 195 TOTAL HIP ARTHROPLASTY Left 11/15/2021 TUBAL LIGATION Visit Vitals BP 140/75 Pulse 79 Resp 18 Wt 188 lb 3.2 oz SpO2 97% BMI 34.42 kg/m Smoking Status Former BSA 1.93 m Review of Systems Respiratory: Positive for cough and wheezing. Objective Physical Exam Constitutional: General: She is not in acute distress. Appearance: Normal appearance. She is well-developed. HENT: Head: Normocephalic and atraumatic. Mouth/Throat: Pharynx: No posterior oropharyngeal erythema. Eyes: General: No scleral icterus. Conjunctiva/sclera: Conjunctivae normal. Cardiovascular: Rate and Rhythm: Normal rate and regular rhythm. Heart sounds: Normal heart sounds. No murmur heard. Pulmonary: Effort: Pulmonary effort is normal. No respiratory distress. Breath sounds: Normal breath sounds. No wheezing, rhonchi or rales. Skin: General: Skin is warm and dry. Neurological: General: No focal deficit present. Mental Status: She is alert and oriented to person, place, and time. Psychiatric: Mood and Affect: Mood normal. Behavior: Behavior normal. Assessment/Plan Diagnoses and all orders for this visit: Moderate persistent asthma without complication ([facility]) - Ambulatory referral to Pulmonology; Future - Liqsrdhmbko-Tychcqsfw-Doupmm (Trelegy Ellipta) 100-62.5-25 MCG/ACT aerosol powder ; Inhale 1 Inhalation Daily Chronic cough - Likel;y due to above. Chest CT was discussed. ENT previously evaluated this and felt it was a pulmonary problem. Follow up in about 4 months (around 01/29/2025) for As Previously Scheduled. documented in this encounter [facility] 09-10-2024 History of Presen t illness Narrative Images from the original note were not included. HPI Results Additional comments: labs Last edited by Tahira Hadley LPN on 09/10/2024 10:49 AM. Subjective Patient ID: Siria Petty is a 74 y.o. female who presents for Hypertension, Diabetes, and Results (labs). Diabetes Mellitus Patient presents for follow up of diabetes. Current symptoms include: hypoglycemia .Patient denies foot ulcerations, polydipsia, polyuria, visual disturbances, and vomiting. Evaluation to date has included: fasting blood sugar, fasting lipid panel, hemoglobin A1C, and microalbuminuria. Home sugars: BGs range between 120 and 140 Hypertension Patient is here for follow-up of elevated blood pressure. Cardiac symptoms: none. Patient denies chest pain, claudication, irregular heart beat, near-syncope, palpitations, paroxysmal nocturnal dyspnea, syncope, and tachypnea. Cardiovascular risk factors: advanced age (older than 55 for men, 65 for women), diabetes mellitus, dyslipidemia, hypertension, and obesity (BMI >= 30 kg/m2). Use of agents associated with hypertension: none. Hypertension Associated symptoms include shortness of breath. Pertinent negatives include no chest pain or palpitations. Diabetes Pertinent negatives for diabetes include no chest pain and no fatigue. Current Outpatient Medications on File Prior to Visit Medication Sig Dispense Refill alendronate (Fosamax) 70 MG tablet TAKE 1 TABLET BY MOUTH WEEKLY WITH 8 OZ OF PLAIN WATER 30 MINUTES BEFORE FIRST FOOD, DRINK OR MEDS. STAY UPRIGHT FOR 30 MINS 12 tablet 3 aspirin (ASPIR) 81 MG EC tablet Take 81 mg by mouth 1 (one) time each day at the same time. atorvastatin (Lipitor) 40 MG tablet TAKE 1 TABLET BY MOUTH AT BEDTIME 100 tablet 2 Blood Glucose Calibration (The Point Ultra) liquid Blood Glucose Monitoring Suppl (ONE TOUCH ULTRA 2) w/Device kit calcium citrate 600 mg and vitamin D3 (Citrical & Minerals + Vit D) 600-200 MG-UNIT tablet Take 2 tablets by mouth in the morning. cetirizine (ZyrTEC) 10 MG tablet Take 1 tablet (10 mg) by mouth Daily as needed for allergies 30 tablet 11 cholecalciferol (D3-5) 5,000 Units tablet Take 5,000 Units by mouth in the morning. Colchicine 0.6 MG capsule Take 1 capsule by mouth 2 (two) times a day as needed (Take 1 tablet PO twice daily during gout flares). fluticasone (Flonase) 50 MCG/ACT nasal spray Administer 2 sprays into each nostril in the morning. Shake gently. Before first use, prime pump. After use, clean tip and replace cap.. 16 g 11 furosemide (Lasix) 20 MG tablet TAKE 1 TABLET BY MOUTH TWICE DAILY 200 tablet 2 glucose blood (Floqq) test strip USE 1 STRIP TO CHECK GLUCOSE ONCE DAILY 100 each 3 metFORMIN (Glucophage) 500 MG tablet TAKE 1 TABLET BY MOUTH WITH A MEAL 3 TIMES DAILY 300 tablet 2 metoprolol succinate XL (Toprol-XL) 25 MG 24 hr tablet TAKE 1 TABLET BY MOUTH ONCE DAILY 100 tablet 2 multivitamin-children's (EQ Complete) 18 MG chewable tablet Chew 1 tablet 1 (one) time each day at the same time. nystatin-triamcinolone (Mycolog II) cream Apply topically every 12 (twelve) hours. Pharmacist Choice Lancets misc albuterol (2.5 MG/3ML) 0.083% nebulizer solution Take 3 mL (2.5 mg) by nebulization every 6 (six) hours if needed for wheezing or shortness of breath 75 mL 3 famotidine (Pepcid) 20 MG tablet Take 1 tablet (20 mg) by mouth in the morning and 1 tablet (20 mg) before bedtime. 180 tablet 0 ipratropium-albuterol (Duo-Neb) 0.5-2.5 mg/3 mL nebulizer solution Take 3 mL by nebulization 4 (four) times a day as needed for wheezing or shortness of breath. 180 mL 11 No current facility-administered medications on file prior to visit. I have reviewed and reconciled the history and medication list with the patient today. Allergies Allergen Reactions Cat Hair Extract Unknown Social History Tobacco Use Smoking status: Former Current packs/day: 0.00 Average packs/day: 0.3 packs/day for 5.0 years (1.3 ttl pk-yrs) Types: Cigarettes Start date: 12/04/1995 Quit date: 12/04/2000 Years since quittin.7 Smokeless tobacco: Never Substance Use Topics Alcohol use: Never Comment: caffeine intake: 1-2 cups per day once in a while Drug use: Defer Family History Problem Relation Name Age of Onset Mental illness Mother Alzheimer's disease Mother Parkinsonism Father Diabetes Other Spouse Hypertension Other Spouse Heart disease Other Spouse Past Medical History: Diagnosis Date Acquired cyst of kidney Acute diastolic heart failure (CMS/HCC) Allergic rhinitis Allergies Arthritis Asthma (CMS/[facility]) Bronchitis CAD (coronary artery disease) (CMS/[facility]) Calculus, kidney CHF (congestive heart failure) ([facility]) Chronic airway obstruction ([facility]/HCC) Chronic sinusitis Chronic systolic heart failure (CMS/HCC) COPD (chronic obstructive pulmonary disease) (CMS/[facility]) Cyst of kidney, acquired Depression (CMS/HCC) Depressive disorder (CMS/HCC) Dermatophytosis Diabetes mellitus (CMS/HCC) 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 Disorder of mineral metabolism, unspecified Diverticulosis Diverticulosis of colon without hemorrhage Edema Essential hypertension, benign (CMS/HCC) Flank pain Right Hypercholesteremia (CMS/HCC) Hypertension (CMS/HCC) Insomnia with sleep apnea Menopausal and postmenopausal disorder Migraine (CMS/HCC) headaches Obesity Morbid obesity Osteopenia Osteoporosis (CMS/HCC) Other specified diseases of pericardium Pneumonia Primary cardiomyopathy (CMS/HCC) Pure hypercholesterolemia (CMS/HCC) Rectocele without uterine prolapse Vitamin D deficiency Past Surgical History: Procedure Laterality Date CARPAL TUNNEL RELEASE Right 1992 CHOLECYSTECTOMY COLONOSCOPY 10/04/2021 CT ABD AND PELVIS WOUT CONTRAST Right 2013 Rt Flank Pain CYSTOSCOPY 2013 DEXA BONE DENSITY 2014 EGD 10/04/2021 EYE EXAM 2014 GASTRIC BYPASS 2007 HERNIA REPAIR 2006 abdominal and hiatal KIDNEY STONE SURGERY 2012 kidney stone removal TONSILLECTOMY 195 TOTAL HIP ARTHROPLASTY Left 11/15/2021 TUBAL LIGATION Visit Vitals BP 132/80 Pulse 94 Ht 5' 2 Wt 184 lb SpO2 97% BMI 33.65 kg/m Smoking Status Former BSA 1.91 m Review of Systems Constitutional: Negative for fatigue. Respiratory: Positive for cough and shortness of breath. Cardiovascular: Negative for chest pain and palpitations. Objective Physical Exam Constitutional: General: She is not in acute distress. Appearance: Normal appearance. She is well-developed. HENT: Head: Normocephalic and atraumatic. Mouth/Throat: Pharynx: No posterior oropharyngeal erythema. Eyes: General: No scleral icterus. Conjunctiva/sclera: Conjunctivae normal. Cardiovascular: Rate and Rhythm: Normal rate and regular rhythm. Heart sounds: Normal heart sounds. No murmur heard. Pulmonary: Effort: Pulmonary effort is normal. No respiratory distress. Breath sounds: Normal breath sounds. No wheezing, rhonchi or rales. Skin: General: Skin is warm and dry. Neurological: General: No focal deficit present. Mental Status: She is alert and oriented to person, place, and time. Psychiatric: Mood and Affect: Mood normal. Behavior: Behavior normal. Office Visit on 09/10/2024 Component Date Value Ref Range Status Hemoglobin A1C 09/10/2024 6.0 Final Assessment/Plan Diagnoses and all orders for this visit: Type 2 diabetes mellitus with other specified complication, without long-term current use of insulin (CMS/HCC) - POCT Glycated hemoglobin, total - FSBS log shows good control, most recent A1C is at or near goal. Continue current treatment plan as previously outlined without changes. Flu vaccine need - Influenza, high-dose seasonal, quadrivalent, PF (FCD769) (Fluzone High Dose [place] 0.7mL dose) Chronic cough - CT chest w IV contrast; Future - Has seen ENT, no cause found. Work up as noted, RTC 3 weeks. May need Pulmonary consult. Chronic obstructive pulmonary disease, unspecified COPD type (CMS/HCC) - Pulmonary Function Test; Future - CT chest w IV contrast; Future Follow up in about 3 weeks (around 10/01/2024) for Test/Lab Review. documented in this encounter [facility] 12-12-2023 History of Presen t illness Narrative [...] 12/12/2023 3:42 PM Patient: Siria Petty MR#: [id number] : 1950 Age: 73 y.o. Referring Physician: [...] Take 1 tablet by mouth daily. nystatin-triamcinolone 208491-0.1 UNIT/GM-% Ointment as needed. omeprazole 20 MG [...] 12/12/2023 3:42 PM Patient: Siria Petty MR#: [id number] : 1950 Age: 73 y.o. Referring Physician: [...] Take 1 tablet by mouth daily. nystatin-triamcinolone 356707-0.1 UNIT/GM-% Ointment as needed. omeprazole 20 MG [...] No Known Allergies. documented in this encounter [facility] 10-08-2023 Evaluation note Encounter Date Diagnosis Assessment [...] - G25.81) Not currently an active problem [facility] Other 12-27-2022 History of Present illness Narrative* Chrystal Geovanny - 11/27/2022 3:20 PM EST Ortho Nurse - Established Patient Intake Room#: 5 Date: 11/27/2022 3:07 PM Patient: Siria Petty MR#: [id number] : 1950 Age: 72 y.o. 1yr L [...] Take 1 tablet by mouth daily. nystatin-triamcinolone 522037-5.1 UNIT/GM-% Ointment as needed. omeprazole 20 MG [...] by mouth daily., Disp: , Rfl: nystatin-triamcinolone 646843-2.1 UNIT/GM-% Ointment, as needed. , Disp: , [...] She has No Known Allergies. * Doug Sahni, MASTER AT [employer] - 11/27/2022 3:20 PM EST HPI: Patient [...] on face to face time with patient. EDY Parra I have reviewed the findings of my clinical staff below and agree with their assessment. Ortho Nurse - Established Patient Intake Room#: 5 Date: 11/27/2022 3:07 PM Patient: Siria Petty MR#: [id number] : 1950 Age: 72 y.o. 1yr L [...] Take 1 tablet by mouth daily. nystatin-triamcinolone 417855-6.1 UNIT/GM-% Ointment as needed. omeprazole 20 MG [...] by mouth daily., Disp: , Rfl: nystatin-triamcinolone 537988-8.1 UNIT/GM-% Ointment, as needed. , Disp: , [...] has No Known Allergies. documented in this [facility]09-07-2022 History of Present illness Narrative* Heather Lane [...] by mouth daily., Disp: , Rfl: nystatin-triamcinolone 272536-6.1 UNIT/GM-% Ointment, as needed. , Disp: , [...] in about 2 months. documented in this [facility]08-31-2022 History of Present illness Narrative* Jaswant Baldwin LPN - 08/01/2022 10:30 AM EDT Ortho Nurse - Established Patient Intake Room#: 3 Left TILA 11-14-21, had a fall on 05-10-22 went to [facility] and was told everything looked good and was given pain medication which she is done with. Before fall she states she was doing great with occasional pain of 2, since her fall the pain radiates down to her foot and is a 10 Date: 08/01/2022 11:26 AM Patient: Siria Petty MR#: [id number] : 1950 Age: 72 y.o. Referring Physician: [...] Take 1 tablet by mouth daily. nystatin-triamcinolone 022526-0.1 UNIT/GM-% Ointment as needed. acetaminophen 325 MG [...] by mouth daily., Disp: , Rfl: nystatin-triamcinolone 646420-2.1 UNIT/GM-% Ointment, as needed. , Disp: , [...] She has No Known Allergies. * Jeyson Lwe MD - 08/01/2022 10:30 AM EDT HPI: Siria is here today for evaluation of her operative hip. She is status post left total hip arthroplasty on 11/14/21. She suffered a fall on 05/10/21, went to the [facility] with reported unremarkable work up. She states [...] in Nov, 2021. 2.) History of fall inJ, 2021. 3.) Degenerative lumbar disease. 4.) Symptomatic [...] had a fall on 05-10-22 went to [facility] and was told everything looked good and was given pain medication which she is done with. Before fall she states she was doing great with occasional pain of 2, since her fall the pain radiates down to her foot and is a 10 Date: 08/01/2022 11:26 AM Patient: Siria Petty MR#: [id number] : 1950 Age: 72 y.o. Referring Physician: [...] Take 1 tablet by mouth daily. nystatin-triamcinolone 052534-1.1 UNIT/GM-% Ointment as needed. acetaminophen 325 MG [...] by mouth daily., Disp: , Rfl: nystatin-triamcinolone 527633-5.1 UNIT/GM-% Ointment, as needed. , Disp: , [...] has No Known Allergies. [facility] History of Present illness Narrative* Jaswant Baldwin LPN - 04/06/2022 9:10 AM EDT Ortho Nurse - Established Patient Intake Room#: 1 4+ month left TILA A/L, some pain of 2, doing great Date: 04/06/2022 9:49 AM Patient: Siria Petty MR#: [id number] : 1950 Age: 71 y.o. Referring Physician: [...] Take 1 tablet by mouth daily. nystatin-triamcinolone 346381-2.1 UNIT/GM-% Ointment as needed. acetaminophen 325 MG [...] by mouth daily., Disp: , Rfl: nystatin-triamcinolone 746869-8.1 UNIT/GM-% Ointment, as needed. , Disp: , [...] 04/06/2022 9:49 AM Patient: Siria Petty MR#: [id number] : 1950 Age: 71 y.o. Referring Physician: [...] Take 1 tablet by mouth daily. nystatin-triamcinolone 114104-5.1 UNIT/GM-% Ointment as needed. acetaminophen 325 MG [...] by mouth daily., Disp: , Rfl: nystatin-triamcinolone 534604-3.1 UNIT/GM-% Ointment, as needed. , Disp: , [...] has No Known Allergies. documented in this [facility]02-09-2022 History of Present illness Narrative* Doug Sahni APRN-[employer] - 01/10/2022 2:20 PM EST SUBJECTIVE: Siria is an established patient of [facility]. Here today for followup. She is now [...] scheduled 4-month appointment or sooner as necessary. (DOC:[id number]) I have reviewed the findings of the clinical contracting support specialist and agree with their assessment. EDY Parra No notes on file documented in this [facility]01-06-2022 History of Present illness Narrative* EDY Parra [...] visit. All pertinant portions of the clinical contracting support specialist documentation was reviewed. EDY Parra I have reviewed the findings of the clinical contracting support specialist and agree with their assessment. EDY Parra Ortho Nurse Established Patient Intake Room#: 4 Date: 12/07/2021 2:25 PM Patient: Siria Petty MR#: [id number] : 1950 Age: 71 y.o. 3wk S/P [...] Laterality: Left; Surgeon: Jeyson Lew MD; Location: [facility] OR CHOLECYSTECTOMY GASTRIC BYPASS HERNIA REPAIR [...] Take 1 tablet by mouth daily. nystatin-triamcinolone 496091-4.1 UNIT/GM-% Ointment as needed. omeprazole 20 MG [...] by mouth daily., Disp: , Rfl: nystatin-triamcinolone 620300-0.1 UNIT/GM-% Ointment, as needed. , Disp: , [...] She has No Known Allergies. * Chrystal Geovanny - 12/07/2021 2:40 PM EST Ortho Nurse Established Patient Intake Room#: 4 Date: 12/07/2021 2:25 PM Patient: Siria Petty MR#: [id number] : 1950 Age: 71 y.o. 3wk S/P [...] Take 1 tablet by mouth daily. nystatin-triamcinolone 297800-2.1 UNIT/GM-% Ointment as needed. omeprazole 20 MG [...] by mouth daily., Disp: , Rfl: nystatin-triamcinolone 906050-6.1 UNIT/GM-% Ointment, as needed. , Disp: , [...] has No Known Allergies. [facility] Nurse Note* Yadira Salas RN - 11/14/2021 [...] - 11/14/2021 4:30 PM EST Doug Sahni [employer] notified of Hgb Hct results,no further orders. * Yadira Salas RN - 11/14/2021 3:30 PM EST Took 50% of regular tray w/o nausea. * Nicole Laurent RN - 11/14/2021 12:47 PM EST Patient transferred to PACU via bed with this nurse and CMO & PRESIDENT. Bedside report given to ARTEMIO Quinones. * Nicole Laurent RN - 11/14/2021 11:36 AM EST OR room temp: 66.3 OR room humidity: 50 documented in this [facility]12-14-2021 History of Present illness Narrative* Trisha Shook, [...] pt completing simulated car transfer with Fabrice Barbosa Pt s educated on how to provide assistance to the pt when getting into and out of the car. Ptand pt s verbalizing understanding. Pt then left seated in the recliner. Transfer Skill: Sit To Stand, Rehab Eval [facility] (Sit-Stand Transfers) contact guard Physical Assist/Nonphysical Assist: Sit/Stand 1 person assist Weight-Bearing Restrictions: Sit/Stand toe touch weight-bearing Assistive Device For Transfer: Sit/Stand 2 wheeled walker Gait Skills, PT Eval Level of [facility]: Gait contact guard Physical Assist/Nonphysical Assist: Gait 1 person assist Weight-Bearing Restrictions: Gait toe touch weight-bearing Assistive Device For Transfer: Gait 2 wheeled walker Gait Distance 50 feet Gait Analysis, PT Eval Gait Pattern Used swing-to gait Stair Negotiation [facility] Level: Stair Negotiation contact guard assist Physical [...] Supine to Sit, Rehab Eval Level of [facility]: Supine/Sit stand-by assist Physical Assist/Nonphysical Assist: Supine/Sit 1 person assist;verbal cues Transfer Skill: Sit to Stand, Rehab Eval Level of [facility]: Sit/Stand contact guard Physical Assist/Nonphysical Assist: Sit/Stand 1 person assist Weight-Bearing Restrictions: Sit/Stand touch down weight-bearing Assistive Device for Transfer: Sit/Stand wheeled walker Upper Body Dressing Level of [facility] independent Physical Assist/Nonphysical Assist set-up required Lower Body Dressing Level of [facility] moderate assist (50% patients effort) Physical Assist/Nonphysical Assist 1 person assist (including TONIA hose) Assistive Device windows desktop engineer General Therapy Interventions Planned Therapy Interventions (OT Eval) ADL retraining;balance training;transfer training Clinical Impression Co-evaluation/co-treatment performed? Yes, combination of simultaneous billable and non-billable treatment Patient Instruction Pt instructed on LB dressing techniques utilizing windows desktop engineer to rodo underwear andshorts in sitting and standing with no LOB able to correct with walker for stability in standing. discuss with patient and spouse needing to have a raised toilet seat they are to call and anushka [facility]. also instruct may have to sponge bathe until precautions are over due to sliding doors on tub/shower will follow up Rehab Potential (OT Eval) good, to achieve stated therapy goals Therapy Frequency 7 times a week Anticipated Equipment Needs at Discharge (OT Eval) bathing equipment;dressing equipment;raised toilet seat;tub bench;windows desktop engineer Today's Treatment Included Pt demonstrates moderate to [...] hygiene training Therapist Information License # [id number] 1. Pt will complete LB dressing min [...] Beds Scripts AOP received prescriptions for Siria Jovanny for bedside delivery at discharge Prescriptions filled and ready Medication Copay Aspirin EC 81mg 2.00 Cephalexin 500mg 0.86 Docusate 100mg 4.00 APAP 325mg 4.00 [place] 5-325mg 1.80 Tramadol 50mg 1.35 Omeprazole 20mg 2.90 Ondansetron 4mg 4.00 Total $ 20.91 Patient Education Counseled patient on appropriate use and side effects of medications. Medications to be picked up in pharmacy Thaddeus Wallis PharmD [facility] [phone] * OSMEL Frazier - 11/14/2021 3:31 PM EST OSMEL met with patient and spouse. OSMEL explained that it was recommended for the patient to dischargehome with home health services for CBC lab draw on 11/16 as well as 1 week of therapy for safety precaution awareness. [employer] ENER[employer] SALES SPECIALIST was able to arrange services through [facility]. [employer]ER[employer] SALES SPECIALIST explained they would contact her to [...] Supine to Sit, Rehab Eval Level of [facility]: Supine/Sit minimum assist (75% patients effort) Physical Assist/Nonphysical Assist: Supine/Sit 1 person assist Transfer Skill: Sit To Stand, Rehab Eval [facility] (Sit-Stand Transfers) contact guard Physical Assist/Nonphysical Assist: Sit/Stand 1 person assist Weight-Bearing Restrictions: Sit/Stand toe touch weight-bearing Assistive Device For Transfer: Sit/Stand 2 wheeled walker Gait Skills, PT Eval Level of [facility]: Gait contact guard Physical Assist/Nonphysical Assist: Gait [...] weight bearing status and use of leg kiln repairer. Pt performed ankle pumps and quad sets [...] given as rescue opiate. documented in this [facility]12-14-2021 Hospital Discharge instructions* Instructions* Raina Maurice RN [...] pillow between legs Hip Precautions: Contact Office ([phone]) if: > Any falls or injuries > [...] [place] office is closed, you may call [phone] where you will be connected with an after hours orthopedic nurse that will be able to answer your questions. documented in this encounter[facility] Miscellaneous Notes* Nursing Notes - Joni Ly RN - 11/14/2021 1:14 PM EST Discharged from PACU in stable condition at this time. Transported via cart to [facility]. Cart placed in lowest position. Call light within reach. Pulse ox monitor on pt with alarms set. Report radha Salas Rn. documented in this encounterFire[facility]12-02-2021 Instructions* Patient Instructions* Rocio Peña RN - 11/06/2021 7:[address] Lew's office will call you for your arrival time, 1-2 business days before your scheduled surgery. Please review your surgery checklist and bring your guide or booklet the day of surgery. Pre-Admission Testing Dept. [phone] Call if you have any changes in [...] Yellow - take the day of surgery [place] - hold according to the doctor's instructions [...] YOUR SURGERY Last Dose: Date Time nystatin-triamcinolone 090424-7.1 UNIT/GM-% Ointment NEEDED CONTINUE, but DO NOT take the morning of surgery. Last Dose: Date Time documented in this [facility]11-02-2021 Evaluation note* Encounter Date Diagnosis Assessment Notes [...] fatigue, but may also predispose to RLS [facility] Other Evaluation + Plan note No data available for this section [facility] Diagnosis Preop testing- Primary Preoperative examination, unspecified Primary osteoarthritis of left hip Primary localized osteoarthrosis, pelvic region and thigh documented in this encounter [facility]* Diagnosis Preop testing- Primary Preoperative examination, unspecified Abnormal coagulation profile Abnormal coagulation profile Encounter for preoperative screening laboratory testing for COVID-19 virus Primary osteoarthritis of left hip Primary localized osteoarthrosis, pelvic region and thigh Acute postoperative pain of left knee documented in this encounter [facility]* Diagnosis Hx of total hip arthroplasty, left- Primary Hx of total hip arthroplasty, left- Primary [facility]* Diagnosis Hx of total hip arthroplasty, left- Primary documented in this encounter [facility]* Diagnosis Hx of total hip arthroplasty, left- Primary [facility]* Diagnosis Hx of total hip arthroplasty, left- Primary Pain due to left hip joint prosthesis, sequela documented in this encounter [facility]* Diagnosis Trigger finger of left hand, unspecified finger- Primary documented in this encounter [facility]* Diagnosis Primary osteoarthritis of one hip, left- Primary documented in this [facility] noteNo assessment information availableMount Carmel Health System Work Phone: Evaluation note* Diagnosis Primary osteoarthritis of left hip- Primary Primary localized osteoarthrosis, pelvic region and thigh documented in this encounter [facility]* Diagnosis Type 2 diabetes mellitus with other specified complication, without long-term current use of insulin ([facility])- Primary Flu vaccine need Chronic cough Cough Chronic obstructive pulmonary disease, unspecified COPD type ([facility]/HCC) [facility] Diagnosis Moderate persistent asthma without complication ([facility]/HCC)- Primary Chronic cough Cough [facility]* Diagnosis Onset Date Resolution Status BMI 33.0-33.9,adult acute Chronic diastolic congestive heart failure acute Chronic insomnia acute Obstructive sleep apnea acut e Type 2 diabetes, diet controlled acute [facility] Work Phone: Evaluation note* Diagnosis Abnormal CT scan of lung- Primary Moderate persistent asthma without complication (CMS/HCC) documented in this encounter [facility]* Diagnosis Type 2 diabetes mellitus with other specified complication, without long-term current use of insulin (CMS/HCC) Moderate persistent asthma without complication (CMS/HCC) documented in this encounter [facility]Evaluation [facility]* Diagnosis Moderate persistent asthma without complication (CMS/HCC)- Primary documented in this encounter [facility]* Diagnosis Wellness examination- Primary ACP (advance care planning) Other specified counseling Chronic obstructive pulmonary disease, unspecified COPD type (CMS/HCC) Unspecified cirrhosis of liver (CMS/HCC) Panlobular emphysema (CMS/HCC) Other emphysema Benign essential hypertension (CMS/HCC) Essential hypertension, benign Diastolic CHF with preserved left ventricular function, NYHA class 2 (CMS/HCC) Nonalcoholic fatty liver disease Acquired cystic kidney disease Type 2 diabetes mellitus with other specified complication, unspecified whether long wall 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 insulin use (CMS/HCC) Mixed hyperlipidemia (CMS/HCC) Mixed hyperlipidemia Obesity (BMI 30-39.9) Routine general medical examination at health care facility Routine general medical examination at a health care facility documented in this encounter [facility] HealthcareEvaluation note* Diagnosis Iron deficiency anemia due to chronic blood loss- Primary Iron deficiency anemia secondary to blood loss (chronic) Gout of foot, unspecified cause, unspecified chronicity, unspecified laterality Non-seasonal allergic rhinitis, unspecified trigger documented in this encounter [facility]* Diagnosis Type 2 diabetes mellitus with other specified complication, without long-term current use of insulin (HCC)- Primary Flu vaccine need Encounter for screening mammogram for breast cancer Major depressive disorder, recurrent, in remission, unspecified Other iron deficiency anemia Diastolic CHF with preserved left ventricular function, NYHA class 2 (HCC) Aortic heart murmur Osteopenia, unspecified location Mixed hyperlipidemia Chronic diastolic heart failure (HCC) Chronic diastolic heart failure documented in this encounter [facility] HealthcareHistory general Narrative - Reported* Type Description Date Medical History COPD Medical History ADRIANNA Medical History diastolic CHF with preserved EF Medical History Type II diabetes diet controlled [facility] Other History of Present illness Narrative* Rashmi [...] HEARING AIDS OR ANY TROUBLE HEARING Sl elem DIFFICULTY SWALLOWING no DENTAL APPLIANCES OR PROBLEMS (dentures, partials, loose teeth, missing teeth, broken teeth, caps or crowns) Dentures full BETA DONNIE USE yes STEROIDS IN THE PAST 2 YEARS no HISTORY OF BLOOD TRANSFUSION/REACTION no CULTURAL OR JEWISH BELIEFS THAT WILL AFFECT CARE no DIETARY [...] verbalized understanding of instructions. [facility] this [facility] No data available for this section [facility] Center[facility] note No data available for this section [facility] CenterReason for referral (narrative)* Consultation (Routine) - New Request Specialty Diagnoses / Procedures Referred By Arlet t Referred To Contact Orthopaedics Diagnoses Hx of total hip arthroplasty, left Jeyson Lew MD [address] [place], [place] [phone] Serafin Calles MD [address] [place], [place] [phone] Referral ID Status Reason Start Date Expiration Date V isits Requested Visits Authorized [id number] New Request 08/01/2022 08/26/2023 1 1 * Medication Prior Authorization - Closed Specialty Diagnoses / Procedures Referred By Arlet hall Referred To Contact Jeyson Lew MD [address] [place], [place] [phone] Referral ID Status Reason Start Date Expiration Date Visits Re quested Visits Authorized [id number] Closed 1 1 * Adjunctive Therapy (Routine) - New Request Specialty Diagnoses / Procedures Referred By Arlet hall Referred To Contact Physical Therapy Diagnoses Hx of total hip arthroplasty, left Pain due to left hip joint prosthesis, sequela Jeyson Lew MD [address] [place] [address] Referral ID Status Reason Start Date Expiration Date V isits Requested Visits Authorized [id number] New Request 08/01/2022 08/26/2023 1 1 Scheduling Instructions . * Diagnostic X-Ray (Routine) - New Request Specialty Diagnoses / Procedures Referred By Arlet hall Referred To Contact Diagnoses Hx of total hip arthroplasty, left Procedures XR HIP WITH PELVIS LEFT Jeyson Lew MD [address] [place] [address] Referral ID Status Reason Start Date Expiration Date V isits Requested Visits Authorized [id number] New Request 07/20/2022 08/14/2023 1 1 [employer] [facility] for referral (narrative)* Consultation (Routine) - New Request Specialty Diagnoses / Procedures Referred By Contact Referred To Contact Physical Medicine & Rehabilitation Diagnoses Primary osteoarthritis of left hip Jeyson Lew MD [address] [place] [address] Pb Rosas DO [address] [place], [place] [phone] Referral ID Status Reason Start Date Expiration Date V isits Requested Visits Authorized [id number] New Request 12/12/2023 01/05/2025 1 1 * Diagnostic X-Ray (Routine) - New Request Specialty Diagnoses / Procedures Referred By Contac t Referred To Contact Diagnoses Primary osteoarthritis of left hip Procedures XR HIP WITH PELVIS LEFT Jeyson Lew MD [address] [place] [address] Referral ID Status Reason Start Date Expiration Date V isits Requested Visits Authorized [id number] New Request 12/12/2023 01/05/[address] [facility] for visit Narrative* Auth/Cert Specialty Diagnoses / Procedures Referred By Contac t Referred To Contact Diagnoses Primary osteoarthritis of left hip Primary osteoarthritis of left hip [M16.12] Procedures [place] TOTAL HIP ARTHROPLASTY ARTHROPLASTY HIP TOTAL LATERAL APPROACH Jeyson Lew MD [address] [place] [address] Referral ID Status Reason Start Date Expiration Date Visits Re quested Visits Authorized [id number] 10/18/2021 1 1 [employer] [facility] Advance Directives No Advanced Directives [...] Procedures XR HIP WITH PELVIS LEFT Doug Sahni, [employer] [address] [place] [address] Referral ID Status Reason Start Date Expiration Date V isits Requested Visits Authorized [id number] New Request 11/30/2021 12/25/2022 1 1 Referral ID Status Reason Start Date Expiration Date V isits Requested Visits Authorized [id number] New Request 01/16/2022 02/10/2023 1 1 Specialty Diagnoses / Procedures Referred By Contac t Referred To Contact Diagnoses Hx of total hip arthroplasty, left Procedures XR HIP WITH PELVIS LEFT Jeyson Lew MD [address] [place] [address] Referral ID Status Reason Start Date Expiration Date V isits Requested Visits Authorized [id number] New Request 03/30/2022 04/24/2023 1 1 Specialty Diagnoses / Procedures Referred By Contac t Referred To Contact Radiology Diagnoses Chronic cough Chronic obstructive pulmonary disease, unspecified COPD type (CMS/HCC) Procedures CT chest w IV contrast Tyshawn Hickman MD [address] [address] Referral ID Status Reason Start Date Expiration Date V isits Requested Visits Authorized [id number] Pending Review 09/10/2024 03/09/2025 1 1 Summary Purpose Family History No Family History Records Found Relationship Condition Age at Onset Recorded Date/T yun Not Specified Alzheimer's disease Unknown Hypertension Unknown father Parkinson's disease Unknown Hypotension Unknown sister Malignant neoplasm of breast Unknown brother Malignant neoplasm of thyroid gland Unkno wn Relationship Condition Age at Onset Recorded Date/T yun mother Alzheimer's disease Unknown Hypertension Unknown father Parkinson's disease Unknown Hypotension Unknown sister Malignant neoplasm of breast Unknown brother Malignant neoplasm of thyroid gland Unkno wn father Unknown mother Hypertension Unknown Unknown Diabetes mellitus Unknown Chief Complaint and Reason for Visit Chief Complaint annual-2yr Chief Complaint ADRIANNA/ ANNUAL Reason for Visit BMI 33.0-33.9,adult Chronic diastolic congestive heart failure Chronic insomnia Obstructive sleep apnea Type 2 diabetes, diet controlled Additional Source Comments Reason for Visit (unrecogniz ed section and content) Reason Comments Preoperative Nurse Assessment Left TILA 1 01/15 [facility] Specialty Diagnoses / Procedures Referred By Contac t Referred To Contact Diagnoses Hx of total hip arthroplasty, left Procedures XR HIP WITH PELVIS LEFT Doug Sahni, [employer] [facility] [employer] [address] [place] [address] Referral ID Status Reason Start Date Expiration Date V isits Requested Visits Authorized [id number] New Request 11/30/2021 12/25/2022 1 1 Reason Comments Post Op Visit Specialty Diagnoses / Procedures Referred By Contac t Referred To Contact Diagnoses Hx of total hip arthroplasty, left Procedures XR HIP WITH PELVIS LEFT Jeyson Lew MD [address] [place] [address] Referral ID Status Reason Start Date Expiration Date V isits Requested Visits Authorized [id number] New Request 03/30/2022 04/24/2023 1 1 Referral ID Status Reason Start Date Expiration Date V isits Requested Visits Authorized [id number] New Request 07/20/2022 08/14/2023 1 1 Reason Comments Pain Reason Comments Consult Middle finger trigge ring Specialty Diagnoses / Procedures Referred By Contac t Referred To Contact Orthopaedics Diagnoses Hx of total hip arthroplasty, left Jeyson Lew MD [address] [place] [address] Serafin Calles MD [address] [place] [address] Referral ID Status Reason Start Date Expiration Date V isits Requested Visits Authorized [id number] New Request 08/01/2022 08/26/2023 1 1 Referral ID Status Reason Start Date Expiration Date V isits Requested Visits Authorized [id number] New Request 11/21/2022 12/16/2023 1 1 Reason Comments Follow-up Specialty Diagnoses / Procedures Referred By Contac t Referred To Contact Diagnoses Primary osteoarthritis of left hip Procedures XR HIP WITH PELVIS LEFT Jeyson Lew MD [address] [place] [address] Referral ID Status Reason Start Date Expiration Date V isits Requested Visits Authorized [id number] New Request 12/12/2023 01/05/2025 1 1 Reason Comments Pain Reason Comments Hypertension Diabetes Results labs Reason Comments Asthma Consultation Specialty Diagnoses / Procedures Referred By Contac t Referred To Contact Pulmonary Disease / Pulmonology Diagnoses Moderate persistent asthma without complication ([facility]) Procedures [place] OFFICE/OUTPATIENT NEW HIGH MDM 60 MINUTES Tyshawn Hickman MD 112 [facility] [address] [place] [address] Phone: tel: fax: Shanika Merida, DO [address] [place] [address] Phone: tel:[phone] fax:[phone] Referral ID Status Reason Start Date Expiration Date Visits Requested Visits Authorized [id number] Pending Review Specialty Services Required 03/27/2025 1 1 Reason Comments Cough 3 month follow up Reason Comments Medicare Annual Wellness Visit Subsequen t Med Refill Nebulizer solution-- express scripts Reason Comments Results Lab results Anemia Med Refill Colchicine,zyrtec--e xpress scripts Reason Comments Anemia Diabetes Results Cbc results Med Refill Fosamax,lipitor,meto lprolol,lasix--mail order Care Teams (unrecognized sec tion and content) Systems Management Consultant Relationship Specialty Start Date End Date Tyshawn Hickman II, MD [address] [place] [address] PCP - General Internal Medicine 08/10/21 Systems Management Consultant Relationship Specialty Start Date End Date Tyshawn Hickman II, MD [address] [place] [address] PCP - General Internal Medicine 08/10/21 Systems Management Consultant Relationship Specialty Start Date End Date Tyshawn Hickman II, MD [address] [place] [address] PCP - General Internal Medicine 08/10/21 Systems Management Consultant Relationship Specialty Start Date End Date Tyshawn Hickman II, MD [address] [place] [address] PCP - General Internal Medicine 08/10/21 Systems Management Consultant Relationship Specialty Start Date End Date Tyshawn Hickman II, MD [address] [place] [address] PCP - General Internal Medicine 08/10/21 Systems Management Consultant Relationship Specialty Start Date End Date Tyshawn Hickman II, MD [address] [place] [address] PCP - General Internal Medicine 08/10/21 Systems Management Consultant Relationship Specialty Start Date End Date Tyshawn Hickman II, MD [address] [place] [address] PCP - General Internal Medicine 08/10/21 Systems Management Consultant Relationship Specialty Start Date End Date Tyshawn Hickman II, MD [address] [place] [address] PCP - General Internal Medicine 08/10/21 Systems Management Consultant Relationship Specialty Start Date End Date Tyshawn Hickman II, MD [address] [place] [address] PCP - General Internal Medicine 08/10/21 Systems Management Consultant Relationship Specialty Start Date End Date Tyshawn Hickman II, MD [address] [place] [address] PCP - General Internal Medicine 08/10/21 Systems Management Consultant Relationship Specialty Start Date End Date Tyshawn Hickman II, MD [address] [place] [address] PCP - General Internal Medicine 08/10/21 Team Status: Active Member Role Status Dates Tyshawn Hickman II MD Primary Care Provider Active Team Status: Inactive Member Role Status Dates Tyshawn Hickman II MD Primary Care Provider Active Pb Sanabria MD Attending Provider Active Systems Management Consultant Relationship Specialty Start Date End Date Tyshawn Hickman II, MD [address] [place] [address] PCP - General Internal Medicine 08/10/21 Systems Management Consultant Relationship Specialty Start Date End Date Tyshawn Hickman II, MD [address] [place] [address] PCP - General Internal Medicine 08/10/21 Systems Management Consultant Relationship Specialty Start Date End Date Tyshawn Hickman MD [address] [facility] [address] [facility] [address] [place] [address] PCP - General Internal Medicine 05/22/23 Tyshawn Hickman MD [address] [place] [address] [place] [address] PCP [facility] 12/02/23 05/31/72 Systems Management Consultant Relationship Specialty Start Date End Date Tyshawn Hickman MD [address] [place] [address] [place] [address] PCP - General Internal Medicine 05/22/23 Tyshawn Hickman MD [address] [place] [address] [place] [address] PCP [facility] 12/02/23 05/31/72 Systems Management Consultant Relationship Specialty Start Date End Date Tyshawn Hickman MD [address] [place] [address] [place] [address] PCP - General Internal Medicine 05/22/23 Tyshawn Hickman MD [address] [place] [address] [place] [address] PCP - [facility] 12/02/23 05/31/72 Systems Management Consultant Relationship Specialty Start Date End Date Tyshawn Hickman MD [address] [facility] [address] [place] [address] PCP - General Internal Medicine 05/22/23 Tyshawn Hickman MD [address] [place] [address] [place] [address] PCP - [facility] 12/02/23 05/31/72 Team Status: Inactive Member Role Status Dates yTshawn Hickman II MD Primary Care Provider Active Start: October 06, 2024 End: October 06, 2024 Melissa Dutton NP Attending Provider Active Start: October 06, 2024 End: October 06, 2024 Systems Management Consultant Relationship Specialty Start Date End Date Tyshawn Hickman MD [address] [place] [address] [place] [address] PCP - General Internal Medicine 05/22/23 Systems Management Consultant Relationship Specialty Start Date End Date Tyshawn Hickman MD [address] [place] [address] [place] [address] PCP - General Internal Medicine 05/22/23 Systems Management Consultant Relationship Specialty Start Date End Date Tyshawn Hickman MD [address] [place] [address] [place] [address] PCP - General Internal Medicine 05/22/23 Lata Lennon, ARTEMIO [facility] 01/08/25 Systems Management Consultant Relationship Specialty Start Date End Date Tyshawn Hickman MD [address] [place] [address] [place] [address] PCP - General Internal Medicine 05/22/23 Lata Lennon, ARTEMIO Clinical [facility] 01/08/25 Systems Management Consultant Relationship Specialty Start Date End Date Tyshawn Hickman MD [address] [place] [address] [place] [address] PCP - General Internal Medicine 05/22/23 Tyshawn Hickman MD [address] [place] [address] [place] [address] PCP - [facility] [place] 12/02/2412/01 Gillian Lo LPN 02/19/25 Systems Management Consultant Relationship Specialty Start Date End Date Tyshawn Hickman MD [address] [place] [address] [place] [address] PCP - General Internal Medicine 05/22/23 Tyshawn Hickman MD [address] [place] [address] [place] [address] PCP - [facility] [place] 12/02/2412/01 Gillian Lo LPN 02/19/25 Systems Management Consultant Relationship Specialty Start Date End Date Tyshawn Hickman MD [address] [place] [address] [place] [address] PCP - General Internal Medicine 05/22/23 Tyshawn Hickman MD [address] [place] [address] [place] [address] PCP - [facility] [place] 12/02/2412/01 Gillian Lo LPN 02/19/25 Systems Management Consultant Relationship Specialty Start Date End Date Tyshawn Hickman MD [address] [place] [address] [place] [address] PCP - General Internal Medicine 05/22/23 Tyshawn Hickman MD [address] [place] [address] [place] [address] PCP - [facility] [place] 12/02/2412/01 Gillian Lo LPN 02/19/25 Systems Management Consultant Relationship Specialty Start Date End Date Tyshawn Hickman MD [address] [place] [address] [place] [address] PCP - General Internal Medicine 05/22/23 Tyshawn Hickman MD [address] [place] [address] [place] [address] PCP - [facility] [place] 12/02/2412/01 Gillian Lo LPN 02/19/25 Systems Management Consultant Relationship Specialty Start Date End Date Tyshawn Hickman MD [address] [place] [address] [place] [address] PCP - General Internal Medicine 05/22/23 Tyshawn Hickman MD [address] [place] [address] [place] [address] PCP - [facility] [place] 12/02/2412/01 Gillian Lo LPN 02/19/25 Systems Management Consultant Relationship Specialty Start Date End Date Tyshawn Hickman MD [address] [place] [address] [place] [address] PCP - General Internal Medicine 05/22/23 Tyshawn Hickman MD [address] [place] [address] [place] [address] PCP - [facility] [place] 12/02/2412/01 Gillian Lo LPN 02/19/25 Systems Management Consultant Relationship Specialty Start Date End Date Tyshawn Hickman MD [address] [facility] [address] [facility] [address] [place] [address] PCP - General Internal Medicine 05/22/23 Tyshawn Hickman MD [address] [facility] [address] [facility] [address] [place] [address] PCP - [facility] [place] 12/02/2412/01 Systems Management Consultant Relationship Specialty Start Date End Date Tyshawn Hickman MD [address] [facility] [address] [facility] [address] [place] [address] PCP - General Internal Medicine 05/22/23 Tyshawn Hickman MD [address] [facility] [address] [place] [address] PCP - [facility] [place] 12/02/2412/01 Scheduled Active and Recently Administ ered Medications [...] 2 g, Intravenous, Administer over 30 Minutes, POULTRY DRESSER TO PROCEDURE, 1 dose, Starting on Sat11/14/21 at 0754, Until Discontinued, Other, Pre-operative antibiotic, For 15 Minutes, Pre-op/Pre-Proc 1051 (Given - Provid er: Jessica Rosa, - - Comment: PSR s/p negative test dose) [...] 2113, Intra-op/Intra-Proc 1207 (Given - Provid er: eJyson Lew MD - Comment: Intraoperatively) zolpidem (AMBIEN) tablet 5 mg 5 mg, Oral, DAILY AT BEDTIME NEEDED, Starting on Sat11/14/21 at 2100, Until Sat11/14/21 at 2113, Sleep, Post-op/Post-Proc INFORMATION SOURCE (unrecogn ized section and content) DATE CREATED AUTHOR 10/17/2022 [facility] DATE CREATED AUTHOR AUTHOR'S ORGANIZ ATION 03/08/2023 [facility] [place] [facility] DATE CREATED AUTHOR AUTHOR'S ORGANIZ ATION 10/12/2023 [facility] DATE CREATED AUTHOR AUTHOR'S ORGANIZ ATION 12/06/2023 [facility] DATE CREATED AUTHOR AUTHOR'S ORGANIZ ATION 12/20/2023 [facility] DATE CREATED AUTHOR AUTHOR'S ORGANIZ ATION 08/28/[address] [facility] DATE CREATED AUTHOR AUTHOR'S ORGANIZ ATION 09/12/2025 [facility] DATE CREATED AUTHOR AUTHOR'S ORGANIZ ATION 09/13/2025 [facility] Goals (unrecognized section and content) Goals may [...] BE BASED ON THE PRIMARY CLINICAL RECORDS. [facility] [employer] [facility]. provides no warranty or guarantee of the accuracy or completeness of information in this document.
--- NOTE | 2025-09-17 13:00 | CA_ITS ---
Patient Name: TONIA BOYER MR#: [id number] : 1950 Exam Date: 09/17/2025 Ordering Doctor: DR BRIANDA MILLER M.D. ECHOCARDIOGRAM REPORT PROCEDURE: CA ECHO DOPPLER COMPLETE INDICATIONS: Heart failure with preserved ejection fraction, diabetes, COPD, asthma COMPARISON: None. DESCRIPTION: COMPLETE ECHOCARDIOGRAM Real-time transthoracic echocardiography with 2D, M-mode, spectral and color flow Doppler performed. QUALITY: Technical quality was good. LEFT VENTRICLE: Upper normal in size. Normal left ventricular wall thickness. Estimated left ventricular ejection fraction is 55-60%. LV EF: Normal left ventricular ejection fraction, (>55%). DIASTOLIC: Diastolic function is indeterminate. ATRIAL SEPTUM: Visually appears intact. LEFT ATRIUM: Moderate dilatation. RIGHT ATRIUM: Normal chamber size. RIGHT VENTRICLE: Normal chamber size. Normal right ventricular systolic function. TRICUSPID VALVE: Normal mobility and thickness. No stenosis with trivial regurgitation. Doppler studies reveal mildly (35-45) elevated right sided pressures. RVSP 45 mmHg MITRAL VALVE: Moderately thickened with normal mobility. No evidence of mitral valve stenosis. Mild mitral annular calcification. Mild mitral regurgitation. AORTIC VALVE: Normal trileaflet appearance. Moderately calcified aortic valve. Moderately diminished mobility. Doppler velocity suggest moderate aortic valve stenosis. DVI 0.31, LÓPEZ 1.2 cm2, Mean 16 mmHg, Vmax 2.59 m/s. Mild aortic regurgitation. AORTIC ROOT: Normal diameter and appearance, measuring 3.5 cm. PULMONIC VALVE: Normal thickness and mobility. No stenosis. No regurgitation. PERICARDIUM: No evidence of pericardial effusion. IVC: Collapses with inspiration. IVC is normal in size. PLEURA: CONCLUSION: 1. The left ventricle is at the upper limit of normal in size and exhibits normal systolic function. LVEF is estimated at 55 to 60%. 2. Normal right ventricular size and systolic function. 3. Moderate aortic valve stenosis. 4. Mild mitral and aortic regurgitation. 5. Mildly elevated right-sided pressures. Adult Echocardiography Procedure Report Left Ventricle LVEDD (3.7 - 5.6 cm): 5.58 cm LVESD (2.2 - 4.0 cm): 4.08 cm LVIVS thickness (0.6 - 1.2 cm): 0.96 cm LVPW thickness (0.5 - 1.0 cm): 0.90 cm e': 0.11 m/s E - e': 7.05 LVOT Max Gradient: 2.65 mm[Hg] LVOT Area (cm2): 0.81 m/s Peak Velocity (LVOT): 0.81 m/s Mean Velocity (LVOT): 0.54 m/s LVOT Diameter 2.26 cm Left Ventricular Ejection Fraction: 55-60 % Left Atrium LA Volume Index (2D A2C): 44.23 ml/m2 Left Atrium Systolic Dimension: 3.83 cm Mitral Valve MV E to A Ratio: 0.80 Mitral Valve A-Wave Peak Velocity: 0.95 m/s Mitral Valve E-Wave Peak Velocity: 0.76 m/s Right Ventricle Aorta AO Root Diam: 3.46 cm Aortic Valve AoV Area (Peak Chalino): 1.26 cm2, 1.36 cm2 AoV Area (VTI): 1.22 cm2, 1.37 cm2 Peak Velocity(Antegrade Flow): 2.39 m/s, 2.59 m/s, 2.54 m/s Peak Gradient(Antegrade Flow): 22.91 mm[Hg], 26.92 mm[Hg], 25.81 mm[Hg] Mean Velocity(Antegrade Flow): 1.74 m/s, 1.91 m/s, 1.79 m/s Mean Gradient(Antegrade Flow): 13.40 mm[Hg], 16.42 mm[Hg], 14.54 mm[Hg] Velocity Time Integral: 64.07 cm, 71.86 cm, 69.57 cm Tricuspid Valve Peak Velocity (Regurgitant Flow): 3.25 m/s Pulmonic Valve Peak Gradient: 3.66 mm[Hg], 6.10 mm[Hg] Right Atrium Dictated by: Wilbert Way M.D. on 09/17/2025 at 18:28 Approved by: Wilbert Way M.D. on 09/17/2025 at 18:35
--- NOTE | 2025-09-17 14:12 | MM_ITS ---
Patient Name: TONIA BOYER MR#: [id number] : 1950 Exam Date: 09/17/2025 Ordering Doctor: DR BRIANDA MILLER M.D. RADIOLOGY REPORT PROCEDURE: MM TOMOSYNTHESIS SCREENING BI COMPARISON: MM TOMOSYNTHESIS SCREENING BI, 03/20/2024. MG MAMM SCREEN 3D NGOC CAD, 02/28/2023. MG MAMM DX 3D RT CAD, 06/07/2022. MG MAMM NGOC SCRN W CAD DIG, 06/17/2009. INDICATIONS: Screening Calculator Name NCI Breast Cancer Risk Assessment Tool 5 Year Breast Cancer Risk 3.90% Lifetime Breast Cancer Risk 9.30% Personal Breast Cancer No Personal Ovarian Cancer No Treatments None Family Cancers Sister with breast cancer at age 68; Brother with unknown cancer at age ~50. LOCATION: [facility] BREAST COMPOSITION: There are scattered areas of fibroglandular density. FINDINGS: RIGHT BREAST: No significant suspicious finding. Benign-appearing calcifications are present. LEFT BREAST: No significant suspicious finding. Benign-appearing lymph nodes are noted. Benign-appearing calcifications are present. DIAGNOSTIC CATEGORY 2--BENIGN FINDING. NO CHANGE FROM COMPARISON. RECOMMENDATIONS: ROUTINE MAMMOGRAM AND CLINICAL EVALUATION IN 12 MONTHS. Dictated by: Tarik Dee MD on 09/17/2025 at 16:29 Approved by: Tarik Dee MD on 09/17/2025 at 16:31
== END 2025-09-17 12:38 | disposition home or self-care (01) ==
LOC: CARD 12:37
PROVIDERS: PCP Internal Medicine; Visit Provider Internal Medicine
DX: I50.30 Unspecified diastolic (congestive) heart failure (principal); I35.8 Other nonrheumatic aortic valve disorders; Z12.31 Encounter for screening mammogram for malignant neoplasm of breast; Z80.3 Family history of malignant neoplasm of breast; Z80.8 Family history of malignant neoplasm of other organs or systems
CPT/HCPCS: 77063; 77067; 93306